=== PATIENT | male | born 1950 | race Caucasian/White ===

== ENCOUNTER 2023-03-16 12:50 | Outpatient (OUT) | payer MEDICARE, OTHER, SELFPAY ==
--- NOTE | 2023-03-16 12:54 | XR_ITS ---
The [address] [address] Patient Name: DAPHNEY AKERS MRN: [id number] date: 1950 Sex: M Assigned Patient Location: [facility] Current Patient Location: [facility] Accession/Order Number: [id number] Exam Date: 03/16/2023 13:30 Report Date: 03/16/2023 15:02 At the request of: TAY ROBIN Procedure: XR chest 2V EXAMINATION: XR chest 2V HISTORY: Preop exam COMPARISON: No relevant comparison available. TECHNIQUE: PA and lateral FINDINGS: LUNGS: Focal 3.1 cm density identified projected over the mid thoracic vertebral bodies, this could be degenerative change however is indeterminate. The lungs are otherwise clear VASCULATURE: No increased pulmonary vasculature. PLEURA: No pneumothorax, effusion, or pleural thickening. CARDIAC: No cardiomegaly or cardiac silhouette abnormality. MEDIASTINUM: No visible mass or adenopathy. BONES: No fracture or visible bone lesion. OTHER: Negative. XR/XR chest 2V IMPRESSION: Focal density seen on the lateral projection. CT scan of chest with contrast is recommended Electronically authenticated by: GARRY CHERY Date: 03/16/2023 15:02
--- NOTE | 2023-03-16 12:54 | ECG_ITS ---
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
--- NOTE | 2023-03-16 13:43 | P.GSHP_ITS ---
History of Present Illness History of Present Illness Chief complaint: right carpal tunnel syndrome Narrative: Patient presents for preadmission testing accompanied by his . The patient reports a history of bilateral carpal tunnel syndrome, he had the left repaired many years ago and is doing well, however he continues to have trouble with his right wrist and hand including numbness, tingling, and pain. Review of Systems ROS Narrative REVIEW OF SYSTEMS: Constitutional: No fever , chills, weakness ENT: No sore throat or epistaxis Cardiovascular: Chronic dyspnea on exertion, no chest pain Respiratory: No cough or wheezing Gastrointestinal: No abdominal pain, constipation, diarrhea, or vomiting Genitourinary: No dysuria or hematuria Neurological: No numbness, tingling, weakness, or headache Psychiatric: No mood changes PFSH PFS Medical History (Updated 03/16/23 @ 13:20 by Nancie Altamirano NP) Sciatica ?M54.30 - Sciatica, unspecified side (ICD-10) Back pain ?M54.9 - Dorsalgia, unspecified (ICD-10) Arthritis ?M19.90 - Unspecified osteoarthritis, unspecified site (ICD-10) Nasal congestion ?R09.81 - Nasal congestion (ICD-10) High cholesterol ?E78.00 - Pure hypercholesterolemia, unspecified (ICD-10) Dyspnea on exertion ?R06.09 - Other forms of dyspnea (ICD-10) Sleep apnea ?G47.30 - Sleep apnea, unspecified (ICD-10) Anxiety ?F41.9 - Anxiety disorder, unspecified (ICD-10) Depression ?F32.A - Depression, unspecified (ICD-10) Hypertension ?I10 - Essential (primary) hypertension (ICD-10) Diabetes ?E11.9 - Type 2 diabetes mellitus without complications (ICD-10) COPD (chronic obstructive pulmonary disease) ?J44.9 - Chronic obstructive pulmonary disease, unspecified (ICD-10) Carpal tunnel syndrome ?G56.00 - Carpal tunnel syndrome, unspecified upper limb (ICD-10) Surgical History (Updated 03/16/23 @ 13:18 by Nancie Altamirano NP) History of colonoscopy ?Z98.890 - Other specified postprocedural states (ICD-10) H/O removal of cyst ?Z98.890 - Other specified postprocedural states (ICD-10) History of appendectomy ?Z90.49 - Acquired absence of other specified parts of digestive tract (ICD- 10) History of total hip arthroplasty ?Z96.649 - Presence of unspecified artificial hip joint (ICD-10) History of carpal tunnel release ?Z98.890 - Other specified postprocedural states (ICD-10) Family History (Updated 03/16/23 @ 13:18 by Nancie Altamirano NP) Other Family history of diabetes mellitus Family history of heart disease Family history of hypertension Family history of prostate cancer Family history of stroke Social History (Updated 03/16/23 @ 13:14 by Nancie Altamirano NP) Within the past year, how often did you have a drink containing alcohol: monthly or less Smoking status: Former smoker Non-prescribed substance use: denies use Previous occupational history: Retired Highest level of school completed/degree received: high school graduate Meds Home Medications and Allergies Home Medications Medication Instructions Recorded Confirmed Type amlodipine 5 mg tablet 5 mg PO DAILY 03/16/23 03/16/23 History atorvastatin 20 mg tablet 20 mg PO DAILY 03/16/23 03/16/23 History dulaglutide 1.5 mg/0.5 mL 1.5 mg subcut QWEEK 03/16/23 03/16/23 History subcutaneous pen injector (Trulicity) gabapentin 600 mg tablet 600 mg PO Q8H 03/16/23 03/16/23 History glipizide 10 mg tablet, extended 10 mg PO DAILY 03/16/23 03/16/23 History release 24 hr insulin detemir U-100 100 unit/mL 70 unit subcut QPM 03/16/23 03/16/23 History (3 mL) subcutaneous pen (Levemir FlexPen) losartan 100 1 tab PO DAILY 03/16/23 03/16/23 History mg-hydrochlorothiazide 12.5 mg tablet meloxicam 7.5 mg tablet 7.5 mg PO DAILY 03/16/23 03/16/23 History metformin 1,000 mg tablet 1,000 mg PO BID 03/16/23 03/16/23 History mirtazapine 30 mg tablet 30 mg PO DAILY 03/16/23 03/16/23 History pioglitazone 15 mg tablet 15 mg PO DAILY 03/16/23 03/16/23 History spironolactone 25 mg tablet 25 mg PO DAILY 03/16/23 03/16/23 History venlafaxine 75 mg tablet 75 mg PO DAILY 03/16/23 03/16/23 History Allergies Allergy/AdvReac Type Severity Reaction Status Date / Time No Known Drug Allergies Allergy Verified 03/16/23 13:13 Exam Narrative Exam Narrative: Constitutional: Awake, alert, comfortable, well-appearing, nontoxic, interactive, vital signs as charted Head: Normocephalic, atraumatic Neck: Supple, normal appearance, normal range of motion, no meningeal signs, no lymphadenopathy Respiratory: No respiratory distress, breath sounds clear Cardiovascular: Regular rate and rhythm, strong and regular heart tones Skin: No rashes or induration, no lesions, only visible skin inspected Psychiatric: Oriented ?3, normal affect Assessment and Plan Assessment and Plan (1) Carpal tunnel syndrome: Plan Right endoscopic carpal tunnel release scheduled with Dr. Cox 03/28/2023.
[2023-03-16 14:02] LABS: Anion Gap 10.1; Calcium 9.2 mg/dL (8.5-10.1); Chloride 101 mmol/L (98-107); Estimated GFR (African America >60 (>=60); Estimated GFR (Non-African Ame >60 (>=60); Glucose 194 mg/dL (74-106); Potassium 4.1 mmol/L (3.5-5.1); Sodium 136 mmol/L (136-145)
== END 2023-03-16 12:51 | disposition home or self-care (01) ==
LOC: PST 12:50
PROVIDERS: Visit Provider Orthopaedic Surgery
DX: Z01.810 Encounter for preprocedural cardiovascular examination (principal); Z01.812 Encounter for preprocedural laboratory examination; Z01.818 Encounter for other preprocedural examination; G56.01 Carpal tunnel syndrome, right upper limb
CPT/HCPCS: 71046; 80048; 93005; G0463

== ENCOUNTER 2023-04-18 08:37 | Outpatient (OUT) | payer MEDICARE, OTHER, SELFPAY ==
--- OUTSIDE RECORDS SUMMARY | 2023-04-18 08:53 | XMS_ITS | CCD ---
Author Name Unknown Address [address] [place] [address] [facility] Care Team Providers Care Entry Level Marketing Assistant Name Role Phone ONEIL WILLIAMSON Unavailable Unavailable GETERRELLINGONEIL Unavailable Unavailable GETERRELLINGONEIL Unavailable Unavailable MOLINA, DIPAKKUMAR Unavailable Unavailable GETERRELLINGONEIL Unavailable Unavailable GETERRELLINGONEIL Unavailable Unavailable MOLINA, DIPAKKUMAR Unavailable Unavailable MOLINA, DIPAKKUMAR Unavailable Unavailable LA Unavailable Unavailable ONEIL WILLIAMSON Unavailable Unavailable GETERRELLINGONEIL Unavailable Unavailable GETERRELLINGONEIL Unavailable Unavailable MOLINA, DIPAKKUMAR Unavailable Unavailable MOLINA, DIPAKKUMAR Unavailable Unavailable GEONEIL HEWITT Unavailable Unavailable GETERRELLINGONEIL Unavailable Unavailable GEONEIL HEWITT Unavailable Unavailable MOLINA, DIPAKKUMAR Unavailable Unavailable ONEIL WILLIAMSON Unavailable Unavailable ONEIL WILLIAMSON Unavailable Unavailable MOLINA, DIPAKKUMAR Unavailable Unavailable MOLINA, DIPAKKUMAR Unavailable Unavailable MOLINA, DIPAKKUMAR P Unavailable Unavailable QUEEN, ANEESH MUMTAZ Unavailable Unavaila ble QUEEN, ANEESH MUMTAZ Unavailable Unavaila ble QUEEN, ANEESH MUMTAZ Unavailable Unavaila ble Molina, Dipakkumar P Primary Care Provider [phone] KUIVINEN JESSICA P Admitting Unavailable KUIVINEN JESSICA P Attending Unavailable MOLINA, DIPAKKUMAR P Primary Care Unavailable Molina, Dipakkumar P Primary Care Provider Phil Molina MD Primary Care Provider Phil Molina MD Primary Care Provider Marisol Carr MD Primary Care Provider MARISOL CARR Referring Unavailable IACOB, MARISOL Primary Care Unavailable TAY ROBIN Referring Unavailable IACOB, MARISOL Primary Care Unavailable IACOB, MARISOL Referring Unavailable IACOB, MARISOL Primary Care Unavailable IACOB, MARISOL Attending Unavailable IACOB, MARISOL Referring Unavailable IACOB, MARISOL Primary Care Unavailable IACOB, MARISOL Referring Unavailable IACOB, MARISOL Primary Care Unavailable IACOB, MARISOL Attending Unavailable IACOB, MARISOL Referring Unavailable IACOB, MARISOL Primary Care Unavailable MOLINA, DIPAKKUMAR P Referring Unavailable MOLINA, DIPAKKUMAR P Primary Care Unavailable IACOB, MARISOL Attending Unavailable IACOB, MARISOL Referring Unavailable IACOB, MARISOL Primary Care Unavailable IACOB, MARISOL Attending Unavailable IACOB, MARISOL Referring Unavailable IACOB, MARISOL Primary Care Unavailable IACOB, MARISOL Attending Unavailable IACOB, MARISOL Referring Unavailable IACOB, MARISOL Primary Care Unavailable IACOB, MARISOL Attending Unavailable IACOB, MARISOL Referring Unavailable IACOB, MARISOL Primary Care Unavailable IACOB, MARISOL Attending Unavailable IACOB, MARISOL Referring Unavailable IACOB, MARISOL Primary Care Unavailable IACOB, MARISOL Attending Unavailable IACOB, MARISOL Referring Unavailable IACOB, MARISOL Primary Care Unavailable IACOB, MARISOL Attending Unavailable IACOB, MARISOL Referring Unavailable IACOB, MARISOL Primary Care Unavailable IACOB, MARISOL Referring Unavailable IACOB, MARISOL Primary Care Unavailable Medications Current Medications Medication Drug Class(es) Dates Sig (Normalized) Sig (Original) [id number] 200 actuat albuterol 0.09 mg/actuat metered dose inhaler (3 sources) beta2-Adrenergic Agonist Start: 08-28-2021 take 2 puff(s) by inhalation four times daily as needed for wheezing albuterol sulfate HFA (VENTOLIN HFA) 108 (90 Base) MCG/ACT inhaler Inhale 2 puffs into the lungs 4 times daily as needed for Wheezing 54 g 1 08/28/2021 Active amLODIPine 5 mg oral tablet (4 sources) Dihydropyridine Calcium Channel Yariel Start: 03-28-2023 take 1 tablet by mouth once daily amLODIPine (NORVASC) 5 MG tablet TAKE 1 TABLET BY MOUTH DAILY 90 tablet 0 03/28/2023 Active Start: 03-25-2022 take 1 tablet by glalo th once daily amLODIPine (NORVASC) 5 MG tablet Take 1 tablet by mouth daily 90 tablet 0 03/25/2022 Active Start: 05-25-2021 take 1 tablet by gallo th once daily amLODIPine (NORVASC) 5 MG tablet Take 1 tablet by mouth daily 90 tablet 0 05/25/2021 Active aspirin 81 mg delayed release oral tablet (9 sources) Platelet Aggregation Inhibitor, Nonsteroidal Anti-inflammatory Drug take 1 tablet by mouth once daily aspirin 81 MG EC tablet Take 81 mg by mouth daily 0 Active take 1 tablet by mouth once rg y aspirin 325 MG EC tablet Take 325 mg by mouth daily 0 Active atorvastatin 20 mg oral tablet (11 sources) HMG-CoA Reductase Inhibitor Start: 03-25-2022 take 1 tablet by mouth once daily atorvastatin (LIPITOR) 20 MG tablet TAKE ONE TABLET BY MOUTH DAILY 90 tablet 2 03/25/2022 Active Start: 06-17-2021 take 1 tablet by gallo th once daily atorvastatin (LIPITOR) 20 MG tablet TAKE ONE TABLET BY MOUTH DAILY 90 tablet 0 06/17/2021 Active Start: 03-17-2021 take 1 tablet by gallo th once daily atorvastatin (LIPITOR) 20 MG tablet TAKE ONE TABLET BY MOUTH DAILY 90 tablet 0 03/17/2021 Active Start: 11-19-2019 take 1 tablet by gallo th once daily atorvastatin (LIPITOR) 20 MG tablet Take 1 tablet by mouth daily 90 tablet 0 11/19/2019 Active Start: 01-12-2019 take 1 tablet by gallo th once daily atorvastatin (LIPITOR) 20 MG tablet Take 1 tablet by mouth daily 90 tablet 0 01/12/2019 Active betamethasone 0.5 mg/ml / clotrimazole 10 mg/ml topical cream (6 sources) Azole Antifungal, Corticosteroid Start: 11-08-2014 clotrimazole-betamethasone (LOTRISONE) 1-0.05 % cream Apply topically 3 times daily. 1 Tube 1 11/08/2014 Active Blood Glucose Monitoring Suppl w/Device KIT (11 sources) Start: 08-26-2022 [address] Gl[address] Monitoring [address] w/Device KIT Indications: Diabetes mellitus due to underlying condition with hyperglycemia, without long-term current use of insulin ([facility]) 1 Units by Does not apply route 2 times daily 1 kit 0 08/26/2022 Active Start: 03-31-2018 Blood Glucose Monitoring Suppl w/Device KIT Indications: Diabetes mellitus due to underlying condition with hyperglycemia, without long-term current use of insulin ([facility]) 1 Units by Does not apply route 2 times daily 1 kit 0 03/31/2018 Active calcium chloride 0.0014 meq/ml / potassium chloride 0.004 meq/ml / sodium chloride 0.103 meq/ml / sodium lactate 0.028 meq/ml injectable solution (2 sources) Start: 01-12-2019 lactated ringe rs infusion 0.5 ml dulaglutide 3 mg/ml auto-injector (1 source) GLP-1 Receptor Agonist Start: 04-13-2019 inject 1.5 mg by subcutaneous injection every week Dulaglutide 1.5 MG/0.5ML SOPN INJECT 1.5 MG UNDER THE SKIN ONCE WEEKLY 2 pen 1 04/13/2019 Active Dulaglutide (TRULICITY) 3 MG/0.5ML SOPN (5 sources) Start: 03-03-2021 Dulaglutide (TRULICITY) 3 MG/0.5ML SOPN Indications: Type 2 diabetes mellitus without complication, without long-term current use of insulin (HCC) Inject 3 mg into the skin once a week 16 pen 3 03/03/2021 Active Dulaglutide (PORFIRIO LICITY) 3 MG/0.5ML SOPN Inject 3 mg into the skin once a week 0 Active fluticasone propionate 0.05 mg/actuat metered dose nasal spray (3 sources) Corticosteroid Start: 04-16-2021 take 2 spray(s) nasal route once daily fluticasone (FLONASE) 50 MCG/ACT nasal spray Indications: Nasal congestion , Nasal turbinate hypertrophy 2 sprays by Each Nostril route daily 1 each 2 04/16/2021 Active gabapentin 400 mg oral capsule (3 sources) Anti-epileptic Agent Start: 11-12-2020 take 1 capsule by mouth at bedtime gabapentin (NEURONTIN) 400 MG capsule Take 400 mg by mouth in the morning and at bedtime. 0 11/12/2020 Active glipiZIDE er 10 mg 24 hr extended release oral tablet (6 sources) Sulfonylurea Start: 03-25-2022 take 1 tablet by mouth twice daily glipiZIDE (GLUCOTROL XL) 10 MG extended release tablet Take 1 tablet by mouth 2 times daily 180 tablet 2 03/25/2022 Active Start: 06-17-2021 take 1 tablet by gallo twice daily glipiZIDE (GLUCOTROL XL) 10 MG extended release tablet Take 1 tablet by mouth 2 times daily 180 tablet 0 06/17/2021 Active Start: 03-17-2021 take 1 tablet by gallo th twice daily glipiZIDE (GLUCOTROL XL) 10 MG extended release tablet Take 1 tablet by mouth 2 times daily 180 tablet 0 03/17/2021 Active Start: 01-08-2020 take 1 tablet by gallo th twice daily glipiZIDE (GLUCOTROL XL) 10 MG extended release tablet Take 1 tablet by mouth 2 times daily 180 tablet 0 01/08/2020 Active hydroCHLOROthiazide 12.5 mg / lisinopril 20 mg oral tablet (6 sources) Thiazide Diuretic, Angiotensin Converting Enzyme Inhibitor Start: 01-08-2020 take 1 tablet by mouth once daily lisinopril-hydroCHLOROthiazide (PRINZIDE;ZESTORETIC) 20-12.5 MG per tablet Indications: Essential hypertension Take 1 tablet by mouth daily 90 tablet 0 01/08/2020 Active Start: 11-30-2018 take 1 tablet by gallo th once daily lisinopril-hydrochlorothiazide (PRINZIDE;ZESTORETIC) 20-12.5 MG per tablet Indications: Essential hypertension Take 1 tablet by mouth daily 90 tablet 0 11/30/2018 Active hydroCHLOROthiazide 12.5 mg / losartan potassium 100 mg oral tablet (5 sources) Thiazide Diuretic, Angiotensin 2 Receptor Yariel Start: 03-24-2023 take 1 tablet by mouth once daily losartan-hydroCHLOROthiazide (HYZAAR) 100-12.5 MG per tablet TAKE 1 TABLET BY MOUTH DAILY 90 tablet 0 03/24/2023 Active Start: 03-25-2022 take 1 tablet by gallo th once daily losartan-hydroCHLOROthiazide (HYZAAR) 100-12.5 MG per tablet Take 1 tablet by mouth daily 90 tablet 0 03/25/2022 Active Start: 05-25-2021 take 1 tablet by gallo th once daily losartan-hydroCHLOROthiazide (HYZAAR) 100-12.5 MG per tablet Take 1 tablet by mouth daily 90 tablet 0 05/25/2021 Active 3 ml insulin detemir 100 unt/ml pen injector (4 sources) Insulin Analog Start: 08-28-2021 insulin detemi r (LEVEMIR FLEXTOUCH) 100 UNIT/ML injection pen Indications: Type 2 diabetes mellitus without complication, with long-term current use of insulin ([facility]) Inject 30 Units into the skin nightly 5 pen 3 08/28/2021 Active Start: 06-25-2021 insulin detemi r (LEVEMIR FLEXTOUCH) 100 UNIT/ML injection pen Indications: Type 2 diabetes mellitus without complication, without long-term current use of insulin ([facility]) Inject 20 Units into the skin nightly 5 pen 3 06/25/2021 Active insulin detemir (LEVEMIR) 100 UNIT/ML injection pen Inject 70 Units into the skin nightly 0 Active meloxicam 15 mg oral tablet (10 sources) Nonsteroidal Anti-inflammatory Drug Start: 03-28-2023 End: 06-26-2023 take 1 tablet by mouth once daily as needed for pain meloxicam (MOBIC) 15 MG tablet TAKE 1 TABLET BY MOUTH DAILY NEEDED FOR PAIN 90 tablet 0 03/28/2023 06/26/2023 Active Start: 04-27-2022 take 1 tablet by gallo th once daily meloxicam (MOBIC) 7.5 MG tablet TAKE ONE TABLET BY MOUTH DAILY 90 tablet 0 04/27/2022 Active Start: 07-02-2021 take 1 tablet by gallo th once daily meloxicam (MOBIC) 7.5 MG tablet TAKE ONE TABLET BY MOUTH DAILY 90 tablet 0 07/02/2021 Active Start: 03-17-2021 take 1 tablet by gallo th once daily meloxicam (MOBIC) 7.5 MG tablet TAKE ONE TABLET BY MOUTH DAILY 90 tablet 0 03/17/2021 Active Start: 12-13-2019 take 1 tablet by gallo th once daily meloxicam (MOBIC) 7.5 MG tablet Take 1 tablet by mouth daily 90 tablet 0 12/13/2019 Active Start: 11-30-2018 take 1 tablet by gallo th once daily meloxicam (MOBIC) 7.5 MG tablet Take 1 tablet by mouth daily 90 tablet 0 11/30/2018 Active metFORMIN hydrochloride 1000 mg oral tablet (11 sources) Biguanide Start: 03-07-2023 take 1 tablet by mouth twice daily at mealtime metFORMIN (GLUCOPHAGE) 1000 MG tablet TAKE 1 TABLET BY MOUTH TWICE A DAY WITH A MEAL 180 tablet 0 03/07/2023 Active Start: 01-21-2022 take 1 tablet by gallo th twice daily at mealtime metFORMIN (GLUCOPHAGE) 1000 MG tablet Take 1 tablet by mouth 2 times daily (with meals) 180 tablet 0 01/21/2022 Active Start: 04-10-2021 take 1 tablet by gallo th twice daily at mealtime metFORMIN (GLUCOPHAGE) 1000 MG tablet Take 1 tablet by mouth 2 times daily (with meals) 180 tablet 0 04/10/2021 Active Start: 11-19-2019 take 1 tablet by gallo th twice daily at mealtime metFORMIN (GLUCOPHAGE) 1000 MG tablet Indications: Diabetes mellitus due to underlying condition with hyperglycemia, without long-term current use of insulin (HCC) Take 1 tablet by mouth 2 times daily (with meals) 180 tablet 0 11/19/2019 Active Start: 11-30-2018 take 1 tablet by gallo th twice daily at mealtime metFORMIN (GLUCOPHAGE) 1000 MG tablet Indications: Diabetes mellitus due to underlying condition with hyperglycemia, without long-term current use of insulin (HCC) Take 1 tablet by mouth 2 times daily (with meals) 180 tablet 0 11/30/2018 Active metroNIDAZOLE 500 mg oral tablet (6 sources) Nitroimidazole Antimicrobial Start: 07-21-2021 End: 07-31-2021 take 1 tablet by mouth three times daily metroNIDAZOLE (FLAGYL) 500 MG tablet Take 1 tablet by mouth 3 times daily for 10 days 30 tablet 0 07/21/2021 07/31/2021 Active Start: 01-12-2019 End: 01-19-2019 take 1 tablet by mouth three times daily metroNIDAZOLE (FLAGYL) 500 MG tablet Take 1 tablet by mouth 3 times daily for 7 days 21 tablet 0 01/12/2019 01/19/2019 Active mirtazapine 30 mg oral tablet (11 sources) Start: 03-25-2022 take 1 tablet by mouth once daily mirtazapine (REMERON) 30 MG tablet Take 1 tablet by mouth nightly 90 tablet 2 03/25/2022 Active Start: 06-17-2021 take 1 tablet by gallo th once daily mirtazapine (REMERON) 30 MG tablet Take 1 tablet by mouth nightly 90 tablet 0 06/17/2021 Active Start: 03-17-2021 take 1 tablet by gallo th once daily mirtazapine (REMERON) 30 MG tablet Take 1 tablet by mouth nightly 90 tablet 0 03/17/2021 Active Start: 10-01-2019 take 1 tablet by gallo th once daily mirtazapine (REMERON) 30 MG tablet Take 1 tablet by mouth nightly 90 tablet 0 10/01/2019 Active Start: 01-12-2019 take 1 tablet by gallo th once daily mirtazapine (REMERON) 30 MG tablet Take 1 tablet by mouth nightly 90 tablet 0 01/12/2019 Active 1 ml morphine sulfate 2 mg/ml cartridge (1 source) Opioid Agonist Start: 01-12-2019 morphine (PF) injection 1 mg nystatin [id number] unt/ml / triamcinolone acetonide 1 mg/ml topical cream (6 sources) Polyene Antifungal, Corticosteroid Start: 11-17-2016 nystatin-triamcin olone (MYCOLOG II) 325200-6.1 UNIT/GM-% cream Apply topically 2 times daily 30 g 2 11/17/2016 Active 2 ml ondansetron 2 mg/ml injection (1 source) Serotonin-3 Receptor Antagonist Start: 01-12-2019 ondansetron (ZOFRAN) injection 4 mg pioglitazone 15 mg oral tablet (11 sources) Peroxisome Proliferator Receptor alpha Agonist, Peroxisome Proliferator Receptor gamma Agonist, Thiazolidinedione Start: 03-25-2022 take 1 tablet by mouth once daily pioglitazone (ACTOS) 15 MG tablet Take 1 tablet by mouth daily 90 tablet 2 03/25/2022 Active Start: 06-17-2021 take 1 tablet by gallo th once daily pioglitazone (ACTOS) 15 MG tablet Take 1 tablet by mouth daily 90 tablet 0 06/17/2021 Active Start: 03-17-2021 take 1 tablet by gallo th once daily pioglitazone (ACTOS) 15 MG tablet Take 1 tablet by mouth daily 90 tablet 0 03/17/2021 Active Start: 12-13-2019 take 1 tablet by gallo th once daily pioglitazone (ACTOS) 15 MG tablet Take 1 tablet by mouth daily 90 tablet 0 12/13/2019 Active Start: 11-30-2018 take 1 tablet by gallo th once daily pioglitazone (ACTOS) 15 MG tablet Take 1 tablet by mouth daily 90 tablet 0 11/30/2018 Active pregabalin 75 mg oral capsule (2 sources) Start: 10-13-2022 take 1 capsule by mouth twice daily pregabalin (LYRICA) 75 MG capsule Take 1 capsule by mouth 2 times daily. 0 10/13/2022 Active repaglinide 2 mg oral tablet (10 sources) Glinide Start: 12-19-2018 take 1 tablet by mouth three times daily before mealtime repaglinide (PRANDIN) 2 MG tablet TAKE 1 TABLET BY MOUTH 3 TIMES DAILY (BEFORE MEALS) 90 tablet 3 12/19/2018 Active Start: 10-13-2018 take 1.5 tablets by mouth three times daily before mealtime repaglinide (PRANDIN) 2 MG tablet Take 1.5 tablets by mouth 3 times daily (before meals) 90 tablet 3 10/13/2018 Active Sennosides-Docusate Sodium (SENOKOT S PO) (6 sources) take 2 tablets by mouth twice daily as needed Sennosides-Docusate Sodium (SENOKOT S PO) Take 2 tablets by mouth 2 times daily as needed 0 Active 3 ml sodium chloride 9 mg/ml injection (4 sources) Start: 01-12-2019 sodium chloride flush 0.9 % injection 10 mL Start: 01-12-2019 sodium chlorid e flush 0.9 % injection 10 mL Start: 01-12-2019 sodium chlorid e flush 0.9 % injection 10 mL spironolactone 25 mg oral tablet (2 sources) Aldosterone Antagonist Start: 03-28-2023 take 1 tablet by mouth once daily spironolactone (ALDACTONE) 25 MG tablet TAKE 1 TABLET BY MOUTH DAILY 90 tablet 0 03/28/2023 Active Start: 03-25-2022 take 1 tablet by gallo th once daily spironolactone (ALDACTONE) 25 MG tablet Take 1 tablet by mouth daily 90 tablet 0 03/25/2022 Active venlafaxine 75 mg oral tablet (11 sources) Serotonin and Norepinephrine Reuptake Inhibitor Start: 01-07-2023 take 1 tablet by mouth twice daily venlafaxine (EFFEXOR) 75 MG tablet Indications: Depression, major, in remission (HCC) TAKE 1 TABLET BY MOUTH TWICE A DAY 180 tablet 0 01/07/2023 Active Start: 04-27-2022 take 1 tablet by gallo th twice daily venlafaxine (EFFEXOR) 75 MG tablet Take 1 tablet by mouth 2 times daily 180 tablet 0 04/27/2022 Active Start: 07-02-2021 take 1 tablet by gallo th twice daily venlafaxine (EFFEXOR) 75 MG tablet Take 1 tablet by mouth 2 times daily 180 tablet 0 07/02/2021 Active Start: 04-10-2021 take 1 tablet by gallo th twice daily venlafaxine (EFFEXOR) 75 MG tablet Take 1 tablet by mouth 2 times daily 180 tablet 0 04/10/2021 Active Start: 11-19-2019 take 1 tablet by gallo th twice daily venlafaxine (EFFEXOR) 75 MG tablet Take 1 tablet by mouth 2 times daily 180 tablet 0 11/19/2019 Active Start: 11-30-2018 take 1 tablet by gallo th twice daily venlafaxine (EFFEXOR) 75 MG tablet Take 1 tablet by mouth 2 times daily 180 tablet 0 11/30/2018 Active Completed/Discontinued Medications Medication Drug Class(es) Dates Sig (Normalized) Sig (Original) acetaminophen 325 mg / HYDROcodone bitartrate 5 mg oral tablet (5 sources) Opioid Agonist Start: 01-12-2019 End: 01-17-2019 take 1 tablet by mouth every six hours as needed for pain and pain, then take 2 tablets by mouth every six hours as needed for pain and pain HYDROcodone-aceta minophen (NORCO) 5-325 MG per tablet Indications: Gluteal abscess Take 1 tablet by mouth every 6 hours as needed for Pain for up to 5 days. May take up to 2 tablets po every 6 hours as needed for pain. 20 tablet 0 01/12/2019 01/17/2019 iopamidol (ISOVUE-370) 76 % injection 75 mL (1 source) Start: 03-31-2023 End: 03-31-2023 iopamidol (ISOVUE-370) 76 % injection 75 mL Problems Active Problems Problem Classification Problem Date Documented Date Episodic/Chronic Abdominal pain (1 source) Left lower quadrant pain; Translations: [Left lower quadrant pain] Episodic Diabetes mellitus with complications (6 sources) Type 2 diabetes mellitus; Translations: [Type 2 diabetes mellitus with hyperglycemia] Onset: 07-15-2022 03-31-2023 Chronic Diabetes mellitus without complication (20 sources) Type 2 diabetes mellitus without complications; Translations: [Type 2 diabetes mellitus without complication] Onset: 12-09-2014 09-23-2017 Chronic Disorders of lipid metabolism (13 sources) Hyperlipidemia; Translations: [Hyperlipidemia, unspecified] Onset: 03-09-2016 09-22-2017 Chronic Esophageal disorders (1 source) Gastro-esophageal reflux disease without esophagitis; Translations: [GASTRO-ESOPHAGEAL REFLUX DISEASE WITHOUT ESOPHAGITIS] Onset: 12-16-2016 Chronic Essential hypertension (15 sources) Essential (primary) hypertension; Translations: [Essential hypertension] Onset: 03-31-2014 09-22-2017 Chronic Mood disorders (20 sources) Major depression in remission; Translations: [Depressive disorder] Onset: 12-09-2014 Resolved: 12-31-2016 09-22-2017 Chronic Osteoarthritis (20 sources) Unilateral primary osteoarthritis, right hip; Translations: [Osteoarthritis of hip] Onset: 08-30-2016 10-29-2016 Chronic Osteoarthritis (6 sources) Osteoarthritis of right hip joint; Translations: [Primary osteoarthritis of right hip] Onset: 10-29-2016 10-29-2016 Other aftercare (4 sources) Aftercare following joint replacement surgery; Translations: [AFTERCARE FOLLOWING JOINT REPLACEMENT SURGERY] Onset: 12-28-2016 Chronic Other connective tissue disease (2 sources) Presence of artificial hip joint, bilateral; Translations: [Presence of left artificial hip joint] Onset: 12-16-2016 Chronic Other lower respiratory disease (3 sources) Radiologic increased density of lung; Translations: [Other disorders of lung] Onset: 03-18-2023 03-18-2023 Episodic Other lower respiratory disease (1 source) Other disorders of lung; Translations: [Other disorders of lung] Onset: 03-18-2023 Episodic Other nervous system disorders (2 sources) Carpal tunnel syndrome; Translations: [Carpal tunnel syndrome, unspecified upper limb] Onset: 03-18-2023 03-18-2023 Chronic Other nutritional; endocrine; and metabolic disorders (11 sources) Body mass index 40+ - severely obese; Translations: [Morbid (severe) obesity due to excess calories] Onset: 03-31-2018 03-31-2018 Chronic Other screening for suspected conditions (not mental disorders or infectious disease) (4 sources) Plain X-ray result abnormal; Translations: [Abnormal findings on diagnostic imaging of other specified body structures] Onset: 03-18-2023 03-18-2023 Chronic Other upper respiratory disease (2 sources) Bleeding from nose; Translations: [Epistaxis] Onset: 03-18-2023 03-18-2023 Episodic Unclassified (2 sources) Unknown / UNK(Unknown) Onset: 10-12-2016 Unclassified (1 source) assisted (current) use of oral hypoglycemic drugs; Translations: [CONTROL CLERK HEAD (CURRENT) USE OF ORAL HYPOGLYCEMIC DRUGS] Onset: 12-16-2016 Unclassified (8 sources) Patient encounter status; Translations: [Colon cancer screening] Onset: 08-05-2014 Resolved: 12-19-2017 12-19-2017 Past or Other Problems Problem Classification Problem Date Documented Date Episodic/Chronic Medical examination/evaluatio n (4 sources) Encounter for preprocedural laboratory examination; Translations: [ENCOUNTER FOR PREPROCEDURAL LABORATORY EXAMINATION] Onset: 10-12-2016 Episodic Neoplasms of unspecified nature or uncertain behavior (3 sources) Skin lesion; Translations: [Neoplasm of unspecified behavior of bone, soft tissue, and skin] Onset: 09-16-2022 09-16-2022 Episodic Other aftercare (3 sources) assisted (current) use of aspirin; Translations: [Other mcc (current) drug therapy] Onset: 10-12-2016 Episodic Other aftercare (1 source) assisted (current) use of insulin; Translations: [assisted (current) use of insulin] Onset: 10-20-2022 Episodic Other and unspecified benign neoplasm (3 sources) Polyp of colon; Translations: [Polyp of colon] Onset: 11-25-2021 11-25-2021 Episodic Other connective tissue disease (11 sources) Weakness of face muscles; Translations: [Facial weakness] Resolved: 08-15-2020 09-22-2017 Episodic Other nervous system disorders (2 sources) Anesthesia of skin; Translations: [Anesthesia of skin] Onset: 09-22-2017 Episodic Other nervous system disorders (11 sources) Numbness; Translations: [Anesthesia of skin] Onset: 09-22-2017 Resolved: 08-15-2020 09-22-2017 Episodic Other nervous system disorders (11 sources) Roger's palsy; 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] Onset: 09-22-2017 Resolved: 08-15-2020 09-22-2017 Episodic Other nervous system disorders (2 sources) Paresthesia of hand ; Translations: [Anesthesia of skin] Onset: 12-21-2022 12-21-2022 Episodic Other nervous system disorders (1 source) Paresthesia of skin; Translations: [Paresthesia of skin] Onset: 12-21-2022 Episodic Other non-traumatic joint disorders (11 sources) Hip pain; Translations: [Pain in right hip] Onset: 09-12-2016 Resolved: 08-15-2020 09-13-2016 Episodic Other nutritional; endocrine; and metabolic disorders (11 sources) Obesity; Translations: [Obesity, unspecified] Onset: 03-31-2014 Resolved: 03-31-2018 03-31-2018 Chronic Other screening for suspected conditions (not mental disorders or infectious disease) (6 sources) Patient encounter status; Translations: [Encounter for screening for malignant neoplasm of prostate] Onset: 08-05-2014 Resolved: 12-19-2017 Episodic Other skin disorders (2 sources) Skin tag; Translations: [Other hypertrophic disorders of the skin] Onset: 09-16-2022 09-16-2022 Episodic Other skin disorders (1 source) Other hypertrophic disorders of the skin; Translations: [Other hypertrophic disorders of the skin] Onset: 09-16-2022 Episodic Screening or history of mental health and substance abuse (1 source) Personal history of nicotine dependence; Translations: [PERSONAL HISTORY OF NICOTINE DEPENDENCE] Onset: 12-16-2016 Episodic Skin and subcutaneous tissue infections (12 sources) Abscess of buttock; Translations: [Cutaneous abscess of buttock] Onset: 01-12-2019 Resolved: 08-15-2020 01-12-2019 Episodic Results Test Name Value Interpretation Reference Range Facility CT CHEST W CONTRASTon 2023 CT CHEST W CONTRAST EXAMINATION: CT OF THE CHEST WITH CONTRAST 03/31/2023 8:55 am TECHNIQUE: CT of the chest was performed with the administration of intravenous contrast. Multiplanar reformatted images are provided for review. Automated exposure control, iterative reconstruction, and/or weight based adjustment of the mA/kV was utilized to reduce the radiation dose to as low as reasonably achievable. COMPARISON: None. HISTORY: ORDERING SYSTEM PROVIDED HISTORY: Abnormal x-ray TECHNOLOGIST PROVIDED HISTORY: STAT Creatinine as needed:->Yes Abnormal CXR, with focal 3.1cm density FINDINGS: Mediastinum: There are a few less than 1 cm mediastinal lymph nodes but no lymphadenopathy. The thoracic aorta is not aneurysmal. No dissection is seen. There are no defects involving the major pulmonary arteries. Lungs/pleura: The lung parenchyma demonstrates scattered calcified granulomas. No other nodules are seen. No airspace consolidations are seen. No pleural effusions or pneumothoraces are seen. Upper Abdomen: The visualized portion of the upper abdomen appear unremarkable. Soft Tissues/Bones: No acute bony abnormalities are noted. IMPRESSION: No acute cardiopulmonary process. Interpreted by: Sukhwinder Man MD Signed by: Sukhwinder Man MD 04/02/23 Final result Normal [facility] CT Chest W contrast Eboni No acute cardiopulmo nary process. [facility] EXAMINATION: CT OF THE CHEST WITH CONTRAST 03/31/2023 8:55 am TECHNIQUE: CT of the chest was performed with the administration of intravenous contrast. Multiplanar reformatted images are provided for review. Automated exposure control, iterative reconstruction, and/or weight based adjustment of the mA/kV was utilized to reduce the radiation dose to as low as reasonably achievable. COMPARISON: None. HISTORY: ORDERING SYSTEM PROVIDED HISTORY: Abnormal x-ray TECHNOLOGIST PROVIDED HISTORY: STAT Creatinine as needed:->Yes Abnormal CXR, with focal 3.1cm density FINDINGS: Mediastinum: There are a few less than 1 cm mediastinal lymph nodes but no lymphadenopathy. The thoracic aorta is not aneurysmal. No dissection is seen. There are no defects involving the major pulmonary arteries. Lungs/pleura: The lung parenchyma demonstrates scattered calcified granulomas. No other nodules are seen. No airspace consolidations are seen. No pleural effusions or pneumothoraces are seen. Upper Abdomen: The visualized portion of the upper abdomen appear unremarkable. Soft Tissues/Bones: No acute bony abnormalities are noted. [facility] Sukhwinder Man MD - 04/02/2023 EXAMINATION: CT OF THE CHEST WITH CONTRAST 03/31/2023 8:55 am TECHNIQUE: CT of the chest was performed with the administration of intravenous contrast. Multiplanar reformatted images are provided for review. Automated exposure control, iterative reconstruction, and/or weight based adjustment of the mA/kV was utilized to reduce the radiation dose to as low as reasonably achievable. COMPARISON: None. HISTORY: ORDERING SYSTEM PROVIDED HISTORY: Abnormal x-ray TECHNOLOGIST PROVIDED HISTORY: STAT Creatinine as needed:->Yes Abnormal CXR, with focal 3.1cm density FINDINGS: Mediastinum: There are a few less than 1 cm mediastinal lymph nodes but no lymphadenopathy. The thoracic aorta is not aneurysmal. No dissection is seen. There are no defects involving the major pulmonary arteries. Lungs/pleura: The lung parenchyma demonstrates scattered calcified granulomas. No other nodules are seen. No airspace consolidations are seen. No pleural effusions or pneumothoraces are seen. Upper Abdomen: The visualized portion of the upper abdomen appear unremarkable. Soft Tissues/Bones: No acute bony abnormalities are noted. IMPRESSION: No acute cardiopulmonary process. [facility] CT Chest W contrast IVOrdere d By: Sukhwinder Man on 04-02-2023 [facility] Work Phone: CBC with Auto Differentialon 03-31-2023 Basophils (Bld) [#/Vol] 0.14 10*3/uL [facility] Basophils/100 WBC (Bld) 1 % 0 - 2 % [facility] Eosinophils (Bld) [#/Vol] 0.65 10*3/uL High [facility] Eosinophils/100 WBC (Bld) 6 % High 1 - 4 % [facility] Erythrocyte distribution width (RBC) [Ratio] 13.2 % 11.8 - 14.4 % [facility] Hematocrit (Bld) [Volume fraction] 40.0 % Low 40.7 - 50.3 % [facility] Hemoglobin (Bld) [Mass/Vol] 12.9 g/dL Low 13.0 - 17.0 g/dL [facility] Immature granulocytes (Bld) [#/Vol] 0.08 10*3/uL [facility] Immature granulocytes/100 WBC (Bld) 1 % High 0 [facility] Interpretation and review of laboratory results Abnormal [facility] Lymphocytes/100 WBC (Bld) 23 % Low 24 - 43 % [facility] Lymphocytes/100 WBC (Bld) 2.37 % [facility] MCH (RBC) [Entitic mass] 28.9 pg 25.2 - 33.5 pg [facility] MCHC (RBC) [Mass/Vol] 32.3 g/dL 28.4 - 34.8 g/dL [facility] MCV (RBC) [Entitic vol] 89.7 fL 82.6 - 102.9 fL [facility] Monocytes/100 WBC (Bld) 8 % 3 - 12 % [facility] Monocytes/100 WBC (Bld) 0.81 % [facility] Neutrophils/100 WBC (Bld) 61 % 36 - 65 % [facility] Nucleated RBC/100 WBC (Bld) [Ratio] 0.0 % 0.0 per 100 WBC [facility] Platelet mean volume (Bld) [Entitic vol] 8.8 fL 8.1 - 13.5 fL [facility] Platelets (Bld) [#/Vol] 440 10*3/uL [facility] RBC (Bld) [#/Vol] 4.46 10*6/uL 4.21 - 5.7 7 m/uL [facility] Segmented neutrophils/100 WBC (Bld) 6.41 % [facility] WBC other (Bld) [#/Vol] 10.5 [facility] CBC with Diffon 03-31-2023 Abs. Basophil 0.14 k/uL Normal 0.00-0.20 [facility] Comment on above: Performed By: #### U RNMAB #### [facility] [employer] [address] [place] [address] Operations Specialists: Dexter Madera MD Abs.Imm.Granulocyt e 0.08 k/uL Normal 0.00-0.30 [facility] Comment on above: Performed By: #### U RNMAB #### [facility] [address] [place], [place] [phone] Operations Specialists: Dexter Madera MD Abs.Neutrophil (Seg) 6.41 k/uL Normal 1.50-8.10 [facility] Comment on above: Performed By: #### U RNMAB #### [facility] [employer] [address] [place], [place] [phone] Operations Specialists: Dexter Madera MD Basophils/100 WBC (Bld) 1 % Normal 0-2 [facility] Comment on above: Performed By: #### U RNMAB #### [address] [address] Operations Specialists: Dexter Madera MD Eosinophils (Bld) [#/Vol] 0.65 10*3/uL High 0.00-0.44 [facility] Comment on above: Performed By: #### U RNMAB #### [address] [address] Operations Specialists: Dexter Madera MD Eosinophils/100 WBC (Bld) 6 % High 1-4 [facility] Comment on above: Performed By: #### U RNMAB #### [address] [address] Operations Specialists: Dexter Madera MD Erythrocyte distribution width (RBC) [Ratio] 13.2 % Normal 11.8-14.4 [facility] Comment on above: Performed By: #### U RNMAB #### [address] [address] Operations Specialists: Dexter Madera MD Hematocrit (Bld) [Volume fraction] 40.0 % Low 40.7-50.3 [facility] Comment on above: Performed By: #### U RNMAB #### [address] [address] Operations Specialists: Dexter Madera MD Hemoglobin (Bld) [Mass/Vol] 12.9 g/dL Low 13.0-17.0 [facility] Comment on above: Performed By: #### U RNMAB #### [address] [address] Operations Specialists: Dexter Madera MD Immature granulocytes/100 WBC (Bld) 1 % High 0 [facility] Comment on above: Performed By: #### U RNMAB #### [address] [address] Operations Specialists: Dexter Madera MD Lymphocytes (Bld) [#/Vol] 2.37 10*3/uL Normal 1.10-3.70 [facility] Comment on above: Performed By: #### U RNMAB #### [address] [address] Operations Specialists: Dexter Madera MD Lymphocytes/100 WBC (Bld) 23 % Low 24-43 [facility] Comment on above: Performed By: #### U RNMAB #### [place] [address] Operations Specialists: Dexter Madera MD MCH (RBC) [Entitic mass] 28.9 pg Normal 25.2-33.5 [facility] Comment on above: Performed By: #### U RNMAB #### [place] [address] Operations Specialists: Dexter Madera MD MCHC (RBC) [Mass/Vol] 32.3 g/dL Normal 28.4-34.8 [facility] Comment on above: Performed By: #### U RNMAB #### [place] [address] Operations Specialists: Dexter Madera MD MCV (RBC) [Entitic vol] 89.7 fL Normal 82.6-102.9 [facility] Comment on above: Performed By: #### U RNMAB #### [place] [address] Operations Specialists: Dexter Madera MD Monocytes (Bld) [#/Vol] 0.81 10*3/uL Normal 0.10-1.20 [facility] Comment on above: Performed By: #### U RNMAB #### [address] [address] Operations Specialists: Dexter Madera MD Monocytes/100 WBC (Bld) 8 % Normal 3-12 [facility] Comment on above: Performed By: #### U RNMAB #### [id number] [place] [address] Operations Specialists: Dexter Madera MD Neutrophil (Seg) 61 % Normal 36-65 [facility] Comment on above: Performed By: #### U RNMAB #### [address] [address] Operations Specialists: Dexter Madera MD NRBC Automated 0.0 per 100 WBC Normal 0.0 [facility] Comment on above: Performed By: #### U RNMAB #### [address] [address] Operations Specialists: Dexter Madera MD Platelet mean volume (Bld) [Entitic vol] 8.8 fL Normal 8.1-13.5 [facility] Comment on above: Performed By: #### U RNMAB #### [address] [address] Operations Specialists: Dexter Madera MD Platelets (Bld) [#/Vol] 440 10*3/uL Normal 138-453 [facility] Comment on above: Performed By: #### U RNMAB #### [address] [address] Operations Specialists: Dexter Madera MD RBC (Bld) [#/Vol] 4.46 10*6/uL Normal 4.21-5.77 [facility] Comment on above: Performed By: #### U RNMAB #### [address] [address] Operations Specialists: Dexter Madera MD WBC (Bld) [#/Vol] 10.5 10*3/uL Normal 3.5-11.3 [facility] Comment on above: Performed By: #### U RNMAB #### [address] [address] Operations Specialists: Dexter Madera MD CT Chest W contrast [place]i Radiology Study observation (narrative) LYNN MANCIA [facility] Metabolic Profon 2023 Albumin [Mass/Vol] 4.2 g/dL Normal 3.5-5.2 [facility] Comment on above: Performed By: #### U RNMAB #### [address] [address] Operations Specialists: Dexter Madera MD Albumin/Glob Ratio 1.3 Normal 1.0-2.5 [facility] Comment on above: Performed By: #### U RNMAB #### [address] [address] Operations Specialists: Dexter Madera MD Alkaline Phos 71 U/L Normal 40-129 [facility] Comment on above: Performed By: #### U RNMAB #### [address] [address] Operations Specialists: Dexter Madera MD ALT [Catalytic activity/Vol] 27 U/L Normal 5-41 [facility] Comment on above: Performed By: #### U RNMAB #### [address] [address] Operations Specialists: Dexter Madera MD Anion gap [Moles/Vol] 7 mmol/L Low 9-17 [facility] Comment on above: Performed By: #### U RNMAB #### [address] [address] Operations Specialists: Dexter Madera MD AST [Catalytic activity/Vol] 21 U/L Normal <40 [facility] Comment on above: Performed By: #### U RNMAB #### [address] [address] Operations Specialists: Dexter Madera MD Bilirubin [Mass/Vol] 0.3 mg/dL Normal 0.3-1.2 [facility] Comment on above: Performed By: #### U RNMAB #### [facility] [address] [place] [address] Operations Specialists: Dexter Madera MD BUN/CRE Ratio 20 Normal 9-20 [facility] Comment on above: Performed By: #### U RNMAB #### [id number] [place] [address] Operations Specialists: Dexter Madera MD Calcium [Mass/Vol] 9.8 mg/dL Normal 8.6-10.4 [facility] Comment on above: Performed By: #### U RNMAB #### [address] [address] Operations Specialists: Dexter Madera MD Chloride [Moles/Vol] 102 mmol/L Normal 98-107 [facility] Comment on above: Performed By: #### U RNMAB #### [address] [address] Operations Specialists: Dexter Madera MD CO2 [Moles/Vol] 31 mmol/L Normal 20-31 [facility] Comment on above: Performed By: #### U RNMAB #### [address] [address] Operations Specialists: Dexter Madera MD Creatinine [Mass/Vol] 0.7 mg/dL Normal 0.7-1.2 [facility] Comment on above: Performed By: #### U RNMAB #### [address] [address] Operations Specialists: Dexter Madera MD GFR/1.73 sq M.predicted among non-blacks MDRD (S/P/Bld) [Vol rate/Area] mL/min/{1.73_m2} Normal >60 [facility] Comment on above: Result Comment: These results are not intended for use in patients <18 years of age. eGFR results are calculated without a race factor using the 2020 CKD-EPI equation. Careful clinical correlation is recommended, particularly when comparing to results calculated using previous equations. The CKD-EPI equation is less accurate in patients with extremes of muscle mass, extra-renal metabolism of creatine, excessive creatine ingestion, or following therapy that affects renal tubular secretion. Performed By: #### U RNMAB #### [facility] [address] [place] [address] Operations Specialists: Dexter Madera MD Glucose [Mass/Vol] 147 mg/dL High 70-99 [facility] Comment on above: Performed By: #### U RNMAB #### [facility] [address] [place] [address] Operations Specialists: Dexter Madera MD Potassium [Moles/Vol] 4.1 mmol/L Normal 3.7-5.3 [facility] Comment on above: Performed By: #### U RNMAB #### [facility] [address] [place] [address] Operations Specialists: Dexter Madera MD Protein [Mass/Vol] 7.5 g/dL Normal 6.4-8.3 [facility] Comment on above: Performed By: #### U RNMAB #### [facility] [address] [place] [address] Operations Specialists: Dexter Madera MD Sodium [Moles/Vol] 140 mmol/L Normal 135-144 [facility] Comment on above: Performed By: #### U RNMAB #### [employer] [address] [place] [address] Operations Specialists: Dexter Madera MD Urea nitrogen [Mass/Vol] 14 mg/dL Normal 8-23 [facility] Comment on above: Performed By: #### U RNMAB #### [email or web address] [address] [place] [address] Operations Specialists: Dexter Madera MD Comprehensive Metabolic Pane [facility] 03-31-2023 Albumin [Mass/Vol] 4.2 g/dL 3.5 - 5.2 g/dL [facility] Albumin/Globulin [Mass ratio] 1.3 {ratio} 1.0 - 2.5 [facility] ALP [Catalytic activity/Vol] 71 U/L 40 - 129 U/L [facility] ALT [Catalytic activity/Vol] 27 U/L 5 - 41 U/L [facility] Anion gap [Moles/Vol] 7 mmol/L Low 9 - 17 mmol/L [facility] AST [Catalytic activity/Vol] 21 U/L NINF - 40 U/L [facility] Bilirubin [Mass/Vol] 0.3 mg/dL 0.3 - 1.2 mg/dL [facility] Calcium [Mass/Vol] 9.8 mg/dL 8.6 - 10. 4 mg/dL [facility] Chloride [Moles/Vol] 102 mmol/L 98 - 107 mmol/L [facility] CO2 [Moles/Vol] 31 mmol/L 20 - 31 mmol/L [facility] Creatinine [Mass/Vol] 0.7 mg/dL 0.7 - 1.2 mg/dL [facility] GFR/1.73 sq M.predicted MDRD (S/P/Bld) [Vol rate/Area] - PINF [facility] Comment on above: These results are not intended for use in patients <18 years of age. eGFR results are calculated without a race factor using the 2020 CKD-EPI equation. Careful clinical correlation is recommended, particularly when comparing to results calculated using previous equations. The CKD-EPI equation is less accurate in patients with extremes of muscle mass, extra-renal metabolism of creatine, excessive creatine ingestion, or following therapy that affects renal tubular secretion. Glucose [Mass/Vol] 147 mg/dL High 70 - 99 mg/dL [facility] Interpretation and review of laboratory results Abnormal [facility] Potassium [Moles/Vol] 4.1 mmol/L 3.7 - 5.3 mmol/L [facility] Protein [Mass/Vol] 7.5 g/dL 6.4 - 8.3 g/dL [facility] Sodium [Moles/Vol] 140 mmol/L 135 - 144 mmol/L [facility] Urea nitrogen [Mass/Vol] 14 mg/dL 8 - 23 mg/dL [facility] Urea nitrogen/Creatinin e [Mass ratio] 20 mg/mg 9 - 20 [facility] Lipid Panelon 03-31-2023 Cholesterol [Mass/Vol] 141 mg/dL NINF - 200 mg/dL [facility] Comment on above: Cholesterol Guidelines: <200 Desirable 200-240 Borderline >240 Undesirable Cholesterol in HDL [Mass/Vol] 34 mg/dL Low 40 - PINF mg/dL [facility] Comment on above: HDL Guidelines: <40 Undesirable 40-59 Borderline >59 Desirable Cholesterol in LDL [Mass/Vol] 77 mg/dL 0 - 130 mg/dL [facility] Comment on above: LDL Guidelines: <100 Desirable 100-129 Near to/above Desirable 130-159 Borderline >159 Undesirable Direct (measured) LDL and calculated LDL are not interchangeable tests. Cholesterol.total/ Cholesterol in HDL [Mass ratio] 4.1 {ratio} NINF - 5 [facility] Interpretation and review of laboratory results Abnormal [facility] Triglyceride [Mass/Vol] 148 mg/dL NINF - 150 mg/dL [facility] Comment on above: Triglyceride Guidelines: <150 Desirable 150-199 Borderline 200-499 High >499 Very high Based on AHA Guidelines for fasting triglyceride, November 2011. [facility] Lipid Profileon 03-31-2023 Cholesterol [Mass/Vol] 141 mg/dL Normal <200 [facility] Comment on above: Result Comment: Cholesterol Guidelines: <200 Desirable 200-240 Borderline >240 Undesirable Performed By: #### L IPR #### [employer] [phone] Operations Specialists: Dexter Madera MD Cholesterol in HDL [Mass/Vol] 34 mg/dL Low >40 [facility] Comment on above: Result Comment: HDL Guidelines: <40 Undesirable 40-59 Borderline >59 Desirable Performed By: #### L IPR #### [employer] [address] [place], [place] [phone] Operations Specialists: Dexter Madera MD Cholesterol in LDL [Mass/Vol] 77 mg/dL Normal 0-130 [facility] Comment on above: Result Comment: LDL Guidelines: <100 Desirable 100-129 Near to/above Desirable 130-159 Borderline >159 Undesirable Direct (measured) LDL and calculated LDL are not interchangeable tests. Performed By: #### L IPR #### [address] [address] Operations Specialists: Dexter Madera MD Cholesterol.total/ Cholesterol in HDL [Mass ratio] 4.1 {ratio} Normal <5 [facility] Comment on above: Performed By: #### L IPR #### [address] [address] Operations Specialists: Dexter Madera MD Triglyceride [Mass/Vol] 148 mg/dL Normal <150 [facility] Comment on above: Result Comment: Triglyceride Guidelines: <150 Desirable 150-199 Borderline 200-499 High >499 Very high Based on AHA Guidelines for fasting triglyceride, November 2011. Performed By: #### L IPR #### [address] [address] Operations Specialists: Dexter Madera MD Hemoglobin A1Con 02-10-2023 Glucose [Mass/Vol] 186 mg/dL Normal [facility] Comment on above: Result Comment: The ADA and AACC recommend providing the estimated average glucose result to permit better patient understanding of their HBA1c result. Performed By: #### G LYHGB #### [address] [address] Operations Specialists: Dexter Madera MD HbA1c (Bld) [Mass fraction] 8.1 % High 4.0-6.0 [facility] Comment on above: Performed By: #### G LYHGB #### [address] [address] Operations Specialists: Dexter Madera MD XR HAND RIGHT (MIN 3 VIEWS)o n 12-23-2022 XR HAND RIGHT (MIN 3 VIEWS) EXAMINATION: THREE XRAY VIEWS OF THE RIGHT HAND 12/22/2022 11:07 am COMPARISON: None. HISTORY: ORDERING SYSTEM PROVIDED HISTORY: Numbness and tingling in right hand TECHNOLOGIST PROVIDED HISTORY: Right hand numbness/tingling FINDINGS: There is no evidence of acute fracture. There is normal alignment. No acute joint abnormality. No focal osseous lesion. No focal soft tissue abnormality. Degenerative changes seen in the interphalangeal joint of the thumb. Degenerative changes at the radiocarpal articulation. IMPRESSION: No acute osseous abnormality. Degenerative changes in the interphalangeal joint of the thumb and in the radiocarpal articulation Interpreted by: Dhaval Lopez MD Signed by: Dhaval Lopez MD 12/23/22 Final result Normal [facility] Hemoglobin A1Con 10-28-2022 Glucose [Mass/Vol] 217 mg/dL Normal [facility] Comment on above: Result Comment: The ADA and AACC recommend providing the estimated average glucose result to permit better patient understanding of their HBA1c result. Performed By: #### C P, CDP #### [facility] [address] [place] [address] [address] [place] [phone] Operations Specialists: Barak Garcia MD #### GLYHGB #### [place] [id number] Operations Specialists: Dexter Madera MD HbA1c (Bld) [Mass fraction] 9.2 % High 4.0-6.0 [facility] Comment on above: Performed By: #### C P, CDP #### [address] [place] [phone] Operations Specialists: Barak Garcia MD #### GLYHGB #### [place] [id number] Operations Specialists: Dexter Madera MD CBC with Diffon 10-27-2022 Abs. Basophil 0.12 k/uL Normal 0.00-0.20 [facility] Comment on above: Performed By: #### C P, CDP #### [facility] [address] [place] [address] [place] [address] Operations Specialists: Barak Garcia MD #### GLYHGB #### [address] [id number] Operations Specialists: Dxeter Madera MD Abs.Imm.Granulocyt e 0.03 k/uL Normal 0.00-0.30 [facility] Comment on above: Performed By: #### C P, CDP #### [address] [place] [phone] Operations Specialists: Barak Garcia MD #### GLYHGB #### [place] [address] Operations Specialists: Dexter Madera MD Abs.Neutrophil (Seg) 7.42 k/uL Normal 1.50-8.10 [facility] Comment on above: Performed By: #### C P, CDP #### [address] [place] [phone] ( Operations Specialists: Barak Garcia MD #### GLYHGB #### [place] [address] Operations Specialists: Dexter Madera MD Basophils/100 WBC (Bld) 1 % Normal 0-2 [facility] Comment on above: Performed By: #### C P, CDP #### [address] [place] [phone] Operations Specialists: Barak Garcia MD #### GLYHGB #### [place] [address] Operations Specialists: Dexter Madera MD Eosinophils (Bld) [#/Vol] 0.66 10*3/uL High 0.00-0.44 [facility] Comment on above: Performed By: #### C P, CDP #### [address] [place] [phone] Operations Specialists: Barak Garcia MD #### GLYHGB #### [address] [address] Operations Specialists: Dexter Madera MD Eosinophils/100 WBC (Bld) 6 % High 1-4 [facility] Comment on above: Performed By: #### C P, CDP #### [facility] [address] [place], [place] [phone] Operations Specialists: Barak Garcia MD #### GLYHGB #### [address] [phone] Operations Specialists: Dexter Madera MD Erythrocyte distribution width (RBC) [Ratio] 13.6 % Normal 11.8-14.4 [facility] Comment on above: Performed By: #### C P, CDP #### [facility] [address] [place] [phone] Operations Specialists: Barak Garcia MD #### GLYHGB #### [address] [phone] Operations Specialists: Dexter Madera MD Hematocrit (Bld) [Volume fraction] 40.6 % Low 40.7-50.3 [facility] Comment on above: Performed By: #### C P, CDP #### [facility] [address] [place], [place] [phone] Operations Specialists: Barak Garcia MD #### GLYHGB #### [address] [phone] Operations Specialists: Dexter Madera MD Hemoglobin (Bld) [Mass/Vol] 13.6 g/dL Normal 13.0-17.0 [facility] Comment on above: Performed By: #### C P, CDP #### [facility] [address] [place], [place] [phone] Operations Specialists: Barak Garcia MD #### GLYHGB #### [address] [phone] Operations Specialists: Dexter Madera MD Immature granulocytes/100 WBC (Bld) 0 % Normal 0 [facility] Comment on above: Performed By: #### C P, CDP #### [facility] [address] [place], [place] [phone] Operations Specialists: Barak Garcia MD #### GLYHGB #### [address] [phone] Operations Specialists: Dexter Madera MD Lymphocytes (Bld) [#/Vol] 2.09 10*3/uL Normal 1.10-3.70 [facility] Comment on above: Performed By: #### C P, CDP #### [facility] [address] [place], [place] [phone] Operations Specialists: Barak Garcia MD #### GLYHGB #### [address] [phone] Operations Specialists: Dexter Madera MD Lymphocytes/100 WBC (Bld) 19 % Low 24-43 [facility] Comment on above: Performed By: #### C P, CDP #### [facility] [address] [place], [place] [phone] Operations Specialists: Barak Garcia MD #### GLYHGB #### [place] [address] [place] [address] Operations Specialists: Dexter Madera MD MCH (RBC) [Entitic mass] 29.4 pg Normal 25.2-33.5 [facility] Comment on above: Performed By: #### C P, CDP #### [facility] [address] [place], [place] [phone] Operations Specialists: Barak Garcia MD #### GLYHGB #### [address] [address] Operations Specialists: Dexter Madera MD MCHC (RBC) [Mass/Vol] 33.5 g/dL Normal 28.4-34.8 [facility] Comment on above: Performed By: #### C P, CDP #### [facility] [address] [place], [place] [phone] Operations Specialists: Barak Garcia MD #### GLYHGB #### [address] [phone] Operations Specialists: Dexter Madera MD MCV (RBC) [Entitic vol] 87.9 fL Normal 82.6-102.9 [facility] Comment on above: Performed By: #### C P, CDP #### [facility] [address] [place] [address] Dr. [place], [place] [phone] Operations Specialists: Barak Garcia MD #### GLYHGB #### [address] [address] Operations Specialists: Dexter Madera MD Monocytes (Bld) [#/Vol] 0.86 10*3/uL Normal 0.10-1.20 [facility] Comment on above: Performed By: #### C P, CDP #### [address] [place], [place] [phone] Operations Specialists: Barak Garcia MD #### GLYHGB #### [address] [phone] Operations Specialists: Dexter Madear MD Monocytes/100 WBC (Bld) 8 % Normal 3-12 [facility] Comment on above: Performed By: #### C P, CDP #### [address] [place], [place] [phone] Operations Specialists: Barak Garcia MD #### GLYHGB #### [address] [address] Operations Specialists: Dexter Madera MD Neutrophil (Seg) 66 % High 36-65 [facility] Comment on above: Performed By: #### C P, CDP #### [facility] [address] [place] [address] Dr. [place] [phone] Operations Specialists: Barak Garcia MD #### GLYHGB #### [address] [phone] Operations Specialists: Detxer Madera MD NRBC Automated 0.0 per 100 WBC Normal 0.0 [facility] Comment on above: Performed By: #### C P, CDP #### [address] [place] [phone] Operations Specialists: Barak Garcia MD #### GLYHGB #### [place] [address] Operations Specialists: Dexter Madera MD Platelet mean volume (Bld) [Entitic vol] 9.4 fL Normal 8.1-13.5 [facility] Comment on above: Performed By: #### C P, CDP #### [address] [place] [phone] Operations Specialists: Barak Garcia MD #### GLYHGB #### [place] [address] Operations Specialists: Dexter Madera MD Platelets (Bld) [#/Vol] 389 10*3/uL Normal 138-453 [facility] Comment on above: Performed By: #### C P, CDP #### [address] [place] [phone] Operations Specialists: Barak Garcia MD #### GLYHGB #### [address] [phone] Operations Specialists: Dexter Madera MD RBC (Bld) [#/Vol] 4.62 10*6/uL Normal 4.21-5.77 [facility] Comment on above: Performed By: #### C P, CDP #### [address] [place] [phone] Operations Specialists: Barak Garcia MD #### GLYHGB #### [address] [place] [address] Operations Specialists: Dexter Madera MD WBC (Bld) [#/Vol] 11.2 10*3/uL Normal 3.5-11.3 [facility] Comment on above: Performed By: #### C P, CDP #### [facility] [address] [place] [address] [place], [place] [phone] Operations Specialists: Barak Garcia MD #### GLYHGB #### [address] [address] Operations Specialists: Dexter Madera MD Comp Metabolic Profon 2022 Albumin [Mass/Vol] 4.5 g/dL Normal 3.5-5.2 [facility] Comment on above: Performed By: #### C P, CDP #### [address] [place] [phone] Operations Specialists: Barak Garcia MD #### GLYHGB #### [address] [address] Operations Specialists: Dexter Madera MD Albumin/Glob Ratio 1.5 Normal 1.0-2.5 [facility] Comment on above: Performed By: #### C P, CDP #### [facility] [address] [place] [address] Dr. [place] [phone] Operations Specialists: Barak Garcia MD #### GLYHGB #### [address] [place] [address] Operations Specialists: Dexter Madera MD Alkaline Phos 71 U/L Normal 40-129 [facility] Comment on above: Performed By: #### C P, CDP #### [facility] [address] [place] [address] [place] [address] Operations Specialists: Barak Garcia MD #### GLYHGB #### [facility] [address] [place] [address] Operations Specialists: Dexter Madera MD ALT [Catalytic activity/Vol] 30 U/L Normal 5-41 [facility] Comment on above: Performed By: #### C P, CDP #### [facility] [address] [place], [place] [phone] Operations Specialists: Barak Garcia MD #### GLYHGB #### [facility] [address] [place] [address] Operations Specialists: Dexter Madera MD Anion gap [Moles/Vol] 12 mmol/L Normal 9-17 [facility] Comment on above: Performed By: #### C P, CDP #### [facility] [address] [place], [place] [phone] Operations Specialists: Barak Garcia MD #### GLYHGB #### [address] [address] Operations Specialists: Dexter Madera MD AST [Catalytic activity/Vol] 22 U/L Normal <40 [facility] Comment on above: Performed By: #### C P, CDP #### [facility] [address] [place], [place] [phone] Operations Specialists: Barak Garcia MD #### GLYHGB #### [facility] [address] [place] [address] Operations Specialists: Dexter Madera MD Bilirubin [Mass/Vol] 0.3 mg/dL Normal 0.3-1.2 [facility] Comment on above: Performed By: #### C P, CDP #### [facility] [address] [place], [place] [phone] Operations Specialists: Barak Garcia MD #### GLYHGB #### [address] [address] Operations Specialists: Dexter Madera MD BUN/CRE Ratio 23 High 9-20 [facility] Comment on above: Performed By: #### C P, CDP #### [facility] [address] [place], [place] [phone] Operations Specialists: Barak Garcia MD #### GLYHGB #### [address] [address] Operations Specialists: Dexter Madera MD Calcium [Mass/Vol] 9.9 mg/dL Normal 8.6-10.4 [facility] Comment on above: Performed By: #### C P, CDP #### [facility] [address] [place], [place] [phone] Operations Specialists: Barak Garcia MD #### GLYHGB #### [address] [address] Operations Specialists: Dexter Madera MD Chloride [Moles/Vol] 103 mmol/L Normal 98-107 [facility] Comment on above: Performed By: #### C P, CDP #### [facility] [address] [place] [address] Dr. [place], [place] [phone] Operations Specialists: Barak Garcia MD #### GLYHGB #### [address] [address] Operations Specialists: Dexter Madera MD CO2 [Moles/Vol] 26 mmol/L Normal 20-31 [facility] Comment on above: Performed By: #### C P, CDP #### [facility] [address] [place], [place] [phone] Operations Specialists: Barak Garcia MD #### GLYHGB #### [address] [address] Operations Specialists: Dexter Madera MD Creatinine [Mass/Vol] 0.8 mg/dL Normal 0.7-1.2 [facility] Comment on above: Performed By: #### C P, CDP #### [facility] [address] [place] [address] Operations Specialists: Barak Garcia MD #### GLYHGB #### [address] [phone] Operations Specialists: Dexter Madera MD GFR/1.73 sq M.predicted among non-blacks MDRD (S/P/Bld) [Vol rate/Area] mL/min/{1.73_m2} Normal >60 [facility] Comment on above: Result Comment: These results are not intended for use in patients <18 years of age. eGFR results are calculated without a race factor using the 2020 CKD-EPI equation. Careful clinical correlation is recommended, particularly when comparing to results calculated using previous equations. The CKD-EPI equation is less accurate in patients with extremes of muscle mass, extra-renal metabolism of creatine, excessive creatine ingestion, or following therapy that affects renal tubular secretion. Performed By: #### C P, CDP #### [address] [place], [place] [phone] Operations Specialists: Barak Garcia MD #### GLYHGB #### [address] [place], [place] [phone] Operations Specialists: Dexter Madera MD Glucose [Mass/Vol] 217 mg/dL High 70-99 [facility] Comment on above: Performed By: #### C P, CDP #### [facility] [address] [place], [place] [phone] Operations Specialists: Barak Garcia MD #### GLYHGB #### [address] [address] Operations Specialists: Dexter Madera MD Potassium [Moles/Vol] 4.2 mmol/L Normal 3.7-5.3 [facility] Comment on above: Performed By: #### C P, CDP #### [facility] [address] [place], [place] 6004983 Operations Specialists: Barak Garcia MD #### GLYHGB #### [address] [phone] Operations Specialists: Dexter Madera MD Protein [Mass/Vol] 7.5 g/dL Normal 6.4-8.3 [facility] Comment on above: Performed By: #### C P, CDP #### [facility] [address] [place], [place] [phone] Operations Specialists: Barak Garcia MD #### GLYHGB #### [facility] [employer] [address] [place] [address] [phone] Operations Specialists: Dexter Madera MD Sodium [Moles/Vol] 141 mmol/L Normal 135-144 [facility] Comment on above: Performed By: #### C P, CDP #### [facility] [address] [place] [address] [place], [place] [phone] Operations Specialists: Barak Garcia MD #### GLYHGB #### [address] [address] Operations Specialists: Dexter Madera MD Urea nitrogen [Mass/Vol] 18 mg/dL Normal 8-23 [facility] Comment on above: Performed By: #### C P, CDP #### [facility] [address] [place] [address] [place], [place] [phone] Operations Specialists: Barak Garcia MD #### GLYHGB #### [address] [address] Operations Specialists: Dexter Madera MD Lipid Profileon 10-27-2022 Cholesterol [Mass/Vol] 151 mg/dL Normal <200 [facility] Comment on above: Result Comment: Cholesterol Guidelines: <200 Desirable 200-240 Borderline >240 Undesirable Performed By: #### U RNMAB #### [employer] [facility] [place] [address] Operations Specialists: Dexter Madera MD Cholesterol in HDL [Mass/Vol] 35 mg/dL Low >40 [facility] Comment on above: Result Comment: HDL Guidelines: <40 Undesirable 40-59 Borderline >59 Desirable Performed By: #### U RNMAB #### [address] [address] Operations Specialists: Dexter Madera MD Cholesterol in LDL [Mass/Vol] 87 mg/dL Normal 0-130 [facility] Comment on above: Result Comment: LDL Guidelines: <100 Desirable 100-129 Near to/above Desirable 130-159 Borderline >159 Undesirable Direct (measured) LDL and calculated LDL are not interchangeable tests. Performed By: #### U RNMAB #### [facility] [employer] [address] [place] [address] Operations Specialists: Dexter Madera MD Cholesterol.total/ Cholesterol in HDL [Mass ratio] 4.3 {ratio} Normal <5 [facility] Comment on above: Performed By: #### U RNMAB #### [facility] [employer] [address] [place] [address] Operations Specialists: Dexter Madera MD Triglyceride [Mass/Vol] 143 mg/dL Normal <150 [facility] Comment on above: Result Comment: Triglyceride Guidelines: <150 Desirable 150-199 Borderline 200-499 High >499 Very high Based on AHA Guidelines for fasting triglyceride, November 2011. Performed By: #### U RNMAB #### [employer] [address] [place] [address] Operations Specialists: Dexter Madera MD Microalb.,[employer] 2022 Creatinine [Mass/Vol] 116.4 mg/dL Normal 39.0-259.0 [facility] Comment on above: Performed By: #### U RNMAB #### [employer] [address] [place] [address] Operations Specialists: Dexter Madera MD Microalb/Creat Ratio 60 mcg/mg creat High <17 [facility] Comment on above: Performed By: #### U RNMAB #### [facility] [employer] [facility] [place], [place] [phone] Operations Specialists: Dexter Madera MD Microalbumin conc. 70 mg/L High <21 [facility] Comment on above: Performed By: #### U RNMAB #### [facility] [employer] [address] [place] [address] [phone] Operations Specialists: Dexter Madera MD Surgical Pathologyon 023 Surgical Pathology (NOTE) Path Number: [id number] -- Diagnosis -- A. ABNORMAL SKIN GROWTH, RIGHT POSTERIOR LEG, EXCISION:-FIBROEPITHELIAL POLYP. Sharmaine Montejo Electronically Signed Out 09/21/2022 Clinical Information Pre-op Diagnosis: ABNORMAL SKIN GROWTH; SKIN TAGS Operative Findings: RT POSTERIOR LEG cd Source of Specimen A: ABNORMAL SKIN GROWTH - RIGHT POSTERIOR LEG Gross Description A. KWABENA DELPHINE, RT POSTERIOR THIGH Received in formalin is a 1.4 x 1.0 x 0.3 cm wrinkled brian papule. Inked and bisected 1cs. tm Microscopic Description Microscopic examination performed. Processing Lab: [address] [id number] Interpretation Performed at [address] [id number] SURGICAL PATHOLOGY CONSULTATION Patient Name: MARY AKERSMIKAEL aSnders Med Rec: [id number] [facility] ANATOMIC PATHOLOGY [address] [place] [phone] Normal [facility] Lipid Profileon 04-30-2022 Cholesterol [Mass/Vol] 167 mg/dL Normal <200 [facility] Comment on above: Result Comment: Cholesterol Guidelines: <200 Desirable 200-240 Borderline >240 Undesirable Performed By: #### U RNMAB #### [address] [phone] Operations Specialists: Dexter Madera MD Cholesterol in HDL [Mass/Vol] 39 mg/dL Low >40 [facility] Comment on above: Result Comment: HDL Guidelines: <40 Undesirable 40-59 Borderline >59 Desirable Performed By: #### U RNMAB #### [employer] [address] [place] [address] [phone] Operations Specialists: Dexter Madera MD Cholesterol in LDL [Mass/Vol] 97 mg/dL Normal 0-130 [facility] Comment on above: Result Comment: LDL Guidelines: <100 Desirable 100-129 Near to/above Desirable 130-159 Borderline >159 Undesirable Direct (measured) LDL and calculated LDL are not interchangeable tests. Performed By: #### U RNMAB #### [facility] [address] [place] [address] [phone] Operations Specialists: Dexter Madera MD Cholesterol.total/ Cholesterol in HDL [Mass ratio] 4.3 {ratio} Normal <5 [facility] Comment on above: Performed By: #### U RNMAB #### [employer] [address] [place] [address] [phone] Operations Specialists: Dexter Madera MD Triglyceride [Mass/Vol] 156 mg/dL High <150 [facility] Comment on above: Result Comment: Triglyceride Guidelines: <150 Desirable 150-199 Borderline 200-499 High >499 Very high Based on AHA Guidelines for fasting triglyceride, November 2011. Performed By: #### U RNMAB #### [employer] [address] [place] [address] Operations Specialists: Dexter Madera MD CBC with Auto Differentialon 04-29-2022 Absolute Eos # 0.45 High [facility] [employer] Immature Granulocyte 0.05 [facility] [employer] Absolute Lymph # 1.93 [facility] [employer] Absolute Upton # 0.85 [facility] [employer] Basophils (Bld) [#/Vol] 0.13 10*3/uL [facility] Basophils/100 WBC (Bld) 1 % 0 - 2 % [facility] Eosinophils/100 WBC (Bld) 4 % 1 - 4 % [facility] Hematocrit (Bld) [Volume fraction] 42.9 % 40.7 - 50.3 % [facility] Hemoglobin (Bld) [Mass/Vol] 14.6 g/dL 13.0 - 17.0 g/dL [facility] Immature granulocytes/100 WBC (Bld) 1 % High 0 [facility] Interpretation and review of laboratory results Abnormal [facility] Lymphocytes/100 WBC (Bld) 19 % Low 24 - 43 % [facility] MCH (RBC) [Entitic mass] 29.9 pg 25.2 - 33.5 pg [facility] MCHC (RBC) [Mass/Vol] 34.0 g/dL 28.4 - 34.8 g/dL [facility] MCV (RBC) [Entitic vol] 87.9 fL 82.6 - 102.9 fL [facility] Monocytes/100 WBC (Bld) 8 % 3 - 12 % [facility] NRBC Automated 0.0 0.0 per 100 WBC [facility] Platelet distribution width (Bld) [Ratio] 13.7 % 11.8 - 14.4 % [facility] Platelet mean volume (Bld) [Entitic vol] 9.4 fL 8.1 - 13.5 fL [facility] Platelets (Bld) [#/Vol] 358 10*3/uL [facility] RBC (Bld) [#/Vol] 4.88 10*6/uL 4.21 - 5.7 7 m/uL [facility] Segmented neutrophils/100 WBC (Bld) 67 % High 36 - 65 % [facility] Segs Absolute 6.89 [facility] WBC (Bld) [#/Vol] 10.3 10*3/uL [facility] CBC with Diffon 04-29-2022 Abs. Basophil 0.13 k/uL Normal 0.00-0.20 [facility] Comment on above: Performed By: #### C P, CDP #### [facility] [address] [place] [address] [place] [address] Operations Specialists: Barak Garcia MD Abs.Imm.Granulocyt e 0.05 k/uL Normal 0.00-0.30 [facility] Comment on above: Performed By: #### C P, CDP #### [facility] [address] [place] [address] [place] [address] Operations Specialists: Barak Garcia MD Abs.Neutrophil (Seg) 6.89 k/uL Normal 1.50-8.10 [facility] Comment on above: Performed By: #### C P, CDP #### [facility] [address] [place] [address] [place] [address] Operations Specialists: Barak Garcia MD Basophils/100 WBC (Bld) 1 % Normal 0-2 [facility] Comment on above: Performed By: #### C P, CDP #### [address] [place], [place] [address] Operations Specialists: Barak Garcia MD Eosinophils (Bld) [#/Vol] 0.45 10*3/uL High 0.00-0.44 [facility] Comment on above: Performed By: #### C P, CDP #### [address] [place], [place] [address] Operations Specialists: Barak Garcia MD Eosinophils/100 WBC (Bld) 4 % Normal 1-4 [facility] Comment on above: Performed By: #### C P, CDP #### [address] [place], [place] [address] Operations Specialists: Barka Garcia MD Erythrocyte distribution width (RBC) [Ratio] 13.7 % Normal 11.8-14.4 [facility] Comment on above: Performed By: #### C P, CDP #### [address] [place], [facility]83 Operations Specialists: Barak Garcia MD Hematocrit (Bld) [Volume fraction] 42.9 % Normal 40.7-50.3 [facility] Comment on above: Performed By: #### C P, CDP #### [facility] [address] [place], [facility]83 Operations Specialists: Barak Garcia MD Hemoglobin (Bld) [Mass/Vol] 14.6 g/dL Normal 13.0-17.0 [facility] Comment on above: Performed By: #### C P, CDP #### [facility] [address] [place], [facility]83 Operations Specialists: Barak Garcia MD Immature granulocytes/100 WBC (Bld) 1 % High 0 [facility] Comment on above: Performed By: #### C P, CDP #### [facility] [address] [place], [facility]83 Operations Specialists: Barak Garcia MD Lymphocytes (Bld) [#/Vol] 1.93 10*3/uL Normal 1.10-3.70 [facility] Comment on above: Performed By: #### C P, CDP #### [address] [place], [facility]83 Operations Specialists: Barak Garcia MD Lymphocytes/100 WBC (Bld) 19 % Low 24-43 [facility] Comment on above: Performed By: #### C P, CDP #### [facility] [address] [place] [address] Dr. [place], [place] [address] Operations Specialists: Barak Garcia MD MCH (RBC) [Entitic mass] 29.9 pg Normal 25.2-33.5 [facility] Comment on above: Performed By: #### C P, CDP #### [facility] [address] [place], [facility]83 Operations Specialists: Barak Garcia MD MCHC (RBC) [Mass/Vol] 34.0 g/dL Normal 28.4-34.8 [facility] Comment on above: Performed By: #### C P, CDP #### [facility] [address] [place], [place] [phone] Operations Specialists: Barak Garcia MD MCV (RBC) [Entitic vol] 87.9 fL Normal 82.6-102.9 [facility] Comment on above: Performed By: #### C P, CDP #### [address] [place], [place] [phone] Operations Specialists: Barak Garcia MD Monocytes (Bld) [#/Vol] 0.85 10*3/uL Normal 0.10-1.20 [facility] Comment on above: Performed By: #### C P, CDP #### [address] [place], [place] [phone] Operations Specialists: Barak Garcia MD Monocytes/100 WBC (Bld) 8 % Normal 3-12 [facility] Comment on above: Performed By: #### C P, CDP #### [address] [place], [place] [phone] Operations Specialists: Barak Garcia MD Neutrophil (Seg) 67 % High 36-65 [facility] Comment on above: Performed By: #### C P, CDP #### [address] [place], [place] [phone] Operations Specialists: Barak Garcia MD NRBC Automated 0.0 per 100 WBC Normal 0.0 [facility] Comment on above: Performed By: #### C P, CDP #### [address] [place], [place] [id number] Operations Specialists: Barak Garcia MD Platelet mean volume (Bld) [Entitic vol] 9.4 fL Normal 8.1-13.5 [facility] Comment on above: Performed By: #### C P, CDP #### [address] [place] [address] Operations Specialists: Barak Garcia MD Platelets (Bld) [#/Vol] 358 10*3/uL Normal 138-453 [facility] Comment on above: Performed By: #### C P, CDP #### [facility] [address] [place] [address] Operations Specialists: Barak Garcia MD RBC (Bld) [#/Vol] 4.88 10*6/uL Normal 4.21-5.77 [facility] Comment on above: Performed By: #### C P, CDP #### [facility] [address] [place], [place] [id number] Operations Specialists: Barak Garcia MD WBC (Bld) [#/Vol] 10.3 10*3/uL Normal 3.5-11.3 [facility] Comment on above: Performed By: #### C P, CDP #### [facility] [address] [place], [place] [id number] Operations Specialists: Barak Garcia MD Comp Metabolic Profon 2022 Albumin [Mass/Vol] 4.0 g/dL Normal 3.5-5.2 [facility] Comment on above: Performed By: #### C P, CDP #### [facility] [address] [place], [place] [id number] Operations Specialists: Barak Garcia MD Albumin/Glob Ratio 1.1 Normal 1.0-2.5 [facility] Comment on above: Performed By: #### C P, CDP #### [facility] [address] [place], [place] [id number] Operations Specialists: Barak Garcia MD Alkaline Phos 75 U/L Normal 40-129 [facility] Comment on above: Performed By: #### C P, CDP #### [facility] [address] [place] [address] Operations Specialists: Barak Garcia MD ALT [Catalytic activity/Vol] 33 U/L Normal 5-41 [facility] Comment on above: Performed By: #### C P, CDP #### [facility] [address] [place], [place] [id number] Operations Specialists: Barak Garcia MD Anion gap [Moles/Vol] 8 mmol/L Low 9-17 [facility] Comment on above: Performed By: #### C P, CDP #### [facility] [address] [place], [place] [id number] Operations Specialists: Barak Garcia MD AST [Catalytic activity/Vol] 29 U/L Normal <40 [facility] Comment on above: Performed By: #### C P, CDP #### [facility] [address] [place], [place] [id number] Operations Specialists: Barak Garcia MD Bilirubin [Mass/Vol] 0.4 mg/dL Normal 0.3-1.2 [facility] Comment on above: Performed By: #### C P, CDP #### [facility] [address] [place], [place] [id number] Operations Specialists: Barak Garcia MD BUN/CRE Ratio 18 Normal 9-20 [facility] Comment on above: Performed By: #### C P, CDP #### [facility] [address] [place], [place] [id number] Operations Specialists: Barak Garcia MD Calcium [Mass/Vol] 9.7 mg/dL Normal 8.6-10.4 [facility] Comment on above: Performed By: #### C P, CDP #### [facility] [address] [place], [place] [id number] Operations Specialists: Barak Garcia MD Chloride [Moles/Vol] 100 mmol/L Normal 98-107 [facility] Comment on above: Performed By: #### C P, CDP #### [facility] [address] [place], [place] [id number] Operations Specialists: Barak Garcia MD CO2 [Moles/Vol] 30 mmol/L Normal 20-31 [facility] Comment on above: Performed By: #### C P, CDP #### [facility] [address] [place] [address] Operations Specialists: Barak Garcia MD Creatinine [Mass/Vol] 0.79 mg/dL Normal 0.70-1.20 [facility] Comment on above: Performed By: #### C P, CDP #### [facility] [address] [place] [address] Operations Specialists: Barak Garcia MD GFR/1.73 sq M.predicted among non-blacks MDRD (S/P/Bld) [Vol rate/Area] mL/min/{1.73_m2} Normal >60 [facility] Comment on above: Result Comment: These results are not intended for use in patients <18 years of age. eGFR results are calculated without a race factor using the 2020 CKD-EPI equation. Careful clinical correlation is recommended, particularly when comparing to results calculated using previous equations. The CKD-EPI equation is less accurate in patients with extremes of muscle mass, extra-renal metabolism of creatine, excessive creatine ingestion, or following therapy that affects renal tubular secretion. Performed By: #### C P, CDP #### [address] [place] [address] Operations Specialists: Barak Garcia MD Glucose [Mass/Vol] 191 mg/dL High 70-99 [facility] Comment on above: Performed By: #### C P, CDP #### [facility] [address] [place] [address] Operations Specialists: Barak Garcia MD Potassium [Moles/Vol] 4.2 mmol/L Normal 3.7-5.3 [facility] Comment on above: Performed By: #### C P, CDP #### [address] [place] [address] Operations Specialists: Barak Garcia MD Protein [Mass/Vol] 7.5 g/dL Normal 6.4-8.3 [facility] Comment on above: Performed By: #### C P, CDP #### [facility] [address] [place] [address] Operations Specialists: Barak Garcia MD Sodium [Moles/Vol] 138 mmol/L Normal 135-144 [facility] Comment on above: Performed By: #### C P, CDP #### [facility] [address] [place] [address] Operations Specialists: Barak Garcia MD Urea nitrogen [Mass/Vol] 14 mg/dL Normal 8-23 [facility] Comment on above: Performed By: #### C P, CDP #### [facility] [address] [place] [address] Operations Specialists: Barak Garcia MD Comprehensive Metabolic Pane [facility] 04-29-2022 Albumin [Mass/Vol] 4 g/dL 3.5 - 5.2 g/dL [facility] Albumin/Globulin [Mass ratio] 1.1 {ratio} 1.0 - 2.5 [facility] ALP [Catalytic activity/Vol] 75 U/L 40 - 129 U/L [facility] ALT [Catalytic activity/Vol] 33 U/L 5 - 41 U/L [facility] Anion gap [Moles/Vol] 8 mmol/L Low 9 - 17 mmol/L [facility] AST [Catalytic activity/Vol] 29 U/L NINF - 40 U/L [facility] Bilirubin [Mass/Vol] 0.4 mg/dL 0.3 - 1.2 mg/dL [facility] Calcium [Mass/Vol] 9.7 mg/dL 8.6 - 10. 4 mg/dL [facility] Chloride [Moles/Vol] 100 mmol/L 98 - 107 mmol/L [facility] CO2 [Moles/Vol] 30 mmol/L 20 - 31 mmol/L [facility] Creatinine [Mass/Vol] 0.79 mg/dL 0.70 - 1.20 mg/dL [facility] GFR/1.73 sq M.predicted MDRD (S/P/Bld) [Vol rate/Area] - PINF [facility] Comment on above: These results are not intended for use in patients <18 years of age. eGFR results are calculated without a race factor using the 2020 CKD-EPI equation. Careful clinical correlation is recommended, particularly when comparing to results calculated using previous equations. The CKD-EPI equation is less accurate in patients with extremes of muscle mass, extra-renal metabolism of creatine, excessive creatine ingestion, or following therapy that affects renal tubular secretion. Glucose [Mass/Vol] 191 mg/dL High 70 - 99 mg/dL [facility] Interpretation and review of laboratory results Abnormal [facility] [employer] Potassium [Moles/Vol] 4.2 mmol/L 3.7 - 5.3 mmol/L [facility] Protein [Mass/Vol] 7.5 g/dL 6.4 - 8.3 g/dL [facility] [employer] Sodium [Moles/Vol] 138 mmol/L 135 - 144 mmol/L [facility] Urea nitrogen [Mass/Vol] 14 mg/dL 8 - 23 mg/dL [facility] [employer] Urea nitrogen/Creatinin e (Bld) [Mass ratio] 18 9 - 20 [facility] Lipid Panelon 04-29-2022 Cholesterol [Mass/Vol] 167 mg/dL NINF - 200 mg/dL [facility] [employer] Comment on above: Cholesterol Guidelines: <200 Desirable 200-240 Borderline >240 Undesirable Cholesterol in HDL [Mass/Vol] 39 mg/dL Low 40 - PINF mg/dL [facility] Comment on above: HDL Guidelines: <40 Undesirable 40-59 Borderline >59 Desirable Cholesterol in LDL [Mass/Vol] 97 mg/dL 0 - 130 mg/dL [facility] Comment on above: LDL Guidelines: <100 Desirable 100-129 Near to/above Desirable 130-159 Borderline >159 Undesirable Direct (measured) LDL and calculated LDL are not interchangeable tests. Cholesterol.total/ Cholesterol in HDL [Mass ratio] 4.3 {ratio} NINF - 5 [facility] Interpretation and review of laboratory results Abnormal [facility] Triglyceride [Mass/Vol] 156 mg/dL High NINF - 150 mg/dL [facility] Comment on above: Triglyceride Guidelines: <150 Desirable 150-199 Borderline 200-499 High >499 Very high Based on AHA Guidelines for fasting triglyceride, November 2011. [facility] TSHon 04-29-2022 TSH Qn 3.05 m[IU]/L [facility] Thyroid Stim. Horm.on 2022 Thyroid Stim. Horm. 3.05 uIU/mL Normal 0.30-5.00 [facility] Comment on above: Performed By: #### T SH #### [facility] [address] [place] [address] Operations Specialists: Barak Garcia MD Basic Metabolic Panelon 06-23 Anion gap [Moles/Vol] 10 mmol/L 9 - 17 mmol/L [facility] Calcium [Mass/Vol] 9.7 mg/dL 8.6 - 10. 4 mg/dL [facility] Chloride [Moles/Vol] 102 mmol/L 98 - 107 mmol/L [facility] CO2 [Moles/Vol] 27 mmol/L 20 - 31 mmol/L [facility] Creatinine [Mass/Vol] 0.62 mg/dL Low 0.70 - 1.20 mg/dL [facility] GFR >60 >60 mL/min [facility] GFR Non- >60 >60 mL/min [facility] Glucose [Mass/Vol] 192 mg/dL High 70 - 99 mg/dL [facility] Interpretation and review of laboratory results Abnormal [facility] Potassium [Moles/Vol] 4.0 mmol/L 3.7 - 5.3 mmol/L [facility] Sodium [Moles/Vol] 139 mmol/L 135 - 144 mmol/L [facility] Urea nitrogen (BldV) [Mass/Vol] 11 mg/dL 8 - 23 mg/dL [facility] Urea nitrogen/Creatinin e (Bld) [Mass ratio] 18 [facility] CBC with Auto Differentialon 07-21-2021 Absolute Eos # 0.42 [facility] Absolute Immature Granulocyte 0.04 [facility] Absolute Lymph # 2.29 [facility] Absolute [place] # 0.86 [facility] Basophils (Bld) [#/Vol] 0.11 10*3/uL [facility] Basophils/100 WBC (Bld) 1 % 0 - 2 % [facility] Eosinophils/100 WBC (Bld) 4 % 1 - 4 % [facility] Hematocrit (Bld) [Volume fraction] 43.6 % 40.7 - 50.3 % [facility] Hemoglobin.gastroi ntestinal spec 1 Ql (Stl) 14.3 g/dL 13.0 - 17.0 g/dL [facility] Immature granulocytes/100 WBC (Bld) 0 % 0 [facility] Interpretation and review of laboratory results Abnormal [facility] Lymphocytes/100 WBC (Bld) 21 % Low 24 - 43 % [facility] MCH (RBC) [Entitic mass] 29.2 pg 25.2 - 33.5 pg [facility] MCHC (RBC) [Mass/Vol] 32.8 g/dL 28.4 - 34.8 g/dL [facility] MCV (RBC) [Entitic vol] 89.0 fL 82.6 - 102.9 fL [facility] Monocytes/100 WBC (Bld) 8 % 3 - 12 % [facility] NRBC Automated 0.0 0.0 per 100 WBC [facility] Platelet distribution width (Bld) [Ratio] 13.7 % 11.8 - 14.4 % [facility] Platelet mean volume (Bld) [Entitic vol] 9.6 fL 8.1 - 13.5 fL [facility] Platelets (Bld) [#/Vol] 392 10*3/uL [facility] RBC (Bld) [#/Vol] 4.90 10*6/uL 4.21 - 5.7 7 m/uL [facility] Segmented neutrophils/100 WBC (Bld) 66 % High 36 - 65 % [facility] Segs Absolute 7.34 [facility] WBC (Bld) [#/Vol] 11.1 10*3/uL [facility] Laboratory - Chemistry and C hemistry - challengeon 07-21-2021 GFR/1.73 sq M.predicted MDRD (S/P/Bld) [Vol rate/Area] [facility] Comment on above: Average GFR for 60-6 9 years old: 85 mL/min/1.73sq m Chronic Kidney Disease: <60 mL/min/1.73sq m Kidney failure: <15 mL/min/1.73sq m eGFR calculated using average adult body mass. Additional eGFR calculator available at: http://www.PriceArea/multiple_crcl_2012.htm Stage 1: Some kidney damage normal GFR Stage 2: Mild kidney damage GFR 60-89 Stage 3: Moderate kidney damage GFR 30-59 Stage 4: Severe kidney damage GFR 15-29 Stage 5: Severe kidney damage GFR <15 ESRD - chronic treatment by dialysis or transplant CBC with Auto Differentialon 06-01-2021 Absolute Eos # 0.62 High [facility] th Absolute Immature Granulocyte 0.05 [facility] Absolute Lymph # 2.36 [facility] alth Absolute [place]pton # 0.78 [facility] lth Basophils (Bld) [#/Vol] 0.12 10*3/uL [facility] Basophils/100 WBC (Bld) 1 % 0 - 2 % [facility] Eosinophils/100 WBC (Bld) 6 % High 1 - 4 % [facility] Hematocrit (Bld) [Volume fraction] 44.6 % 40.7 - 50.3 % [facility] Hemoglobin.gastroi ntestinal spec 1 Ql (Stl) 14.4 g/dL 13.0 - 17.0 g/dL [facility] Immature granulocytes/100 WBC (Bld) 1 % High 0 [facility] Interpretation and review of laboratory results Abnormal [facility] Lymphocytes/100 WBC (Bld) 24 % 24 - 43 % [facility] MCH (RBC) [Entitic mass] 28.7 pg 25.2 - 33.5 pg [facility] MCHC (RBC) [Mass/Vol] 32.3 g/dL 28.4 - 34.8 g/dL [facility] MCV (RBC) [Entitic vol] 89.0 fL 82.6 - 102.9 fL [facility] Monocytes/100 WBC (Bld) 8 % 3 - 12 % [facility] NRBC Automated 0.0 0.0 per 100 WBC [facility] Platelet distribution width (Bld) [Ratio] 13.9 % 11.8 - 14.4 % [facility] Platelet mean volume (Bld) [Entitic vol] 9.3 fL 8.1 - 13.5 fL [facility] Platelets (Bld) [#/Vol] 378 10*3/uL [facility] RBC (Bld) [#/Vol] 5.01 10*6/uL 4.21 - 5.7 7 m/uL [facility] Segmented neutrophils/100 WBC (Bld) 60 % 36 - 65 % [facility] Segs [facility] 5.92 [facility] W[facility] (Bld) [#/Vol] 9.9 10*3/uL [facility] Comprehensive Metabolic Pane jesus 06-01-2021 Albumin [Mass/Vol] 4.2 g/dL 3.5 - 5.2 g/dL [facility] Albumin/Globulin [Mass ratio] 1.4 {ratio} [facility] ALP (Bld) [Catalytic activity/Vol] 75 U/L 40 - 129 U/L [facility] ALT [Catalytic activity/Vol] 43 U/L High 5 - 41 U/L [facility] Anion gap [Moles/Vol] 13 mmol/L 9 - 17 mmol/L [facility] AST [Catalytic activity/Vol] 32 U/L <40 [facility] Bilirubin [Mass/Vol] 0.45 mg/dL 0.3 - 1.2 mg/dL [facility] Calcium [Mass/Vol] 9.8 mg/dL 8.6 - 10. 4 mg/dL [facility] Chloride [Moles/Vol] 101 mmol/L 98 - 107 mmol/L [facility] CO2 [Moles/Vol] 24 mmol/L 20 - 31 mmol/L [facility] Creatinine [Mass/Vol] 0.79 mg/dL 0.70 - 1.20 mg/dL [facility] Free PSA/Total PSA [Mass fraction] 7.3 g/dL 6.4 - 8.3 g/dL [facility] GFR >60 >60 mL/min [facility] GFR Non- >60 >60 mL/min [facility] Glucose [Mass/Vol] 244 mg/dL High 70 - 99 mg/dL [facility] Interpretation and review of laboratory results Abnormal [facility] Potassium [Moles/Vol] 3.8 mmol/L 3.7 - 5.3 mmol/L [facility] Sodium [Moles/Vol] 138 mmol/L 135 - 144 mmol/L [facility] Urea nitrogen (BldV) [Mass/Vol] 13 mg/dL 8 - 23 mg/dL [facility] Urea nitrogen/Creatinin e (Bld) [Mass ratio] 16 [facility] Laboratory - Chemistry and C hemistry - challengeon 06-01-2021 GFR/1.73 sq M.predicted MDRD (S/P/Bld) [Vol rate/Area] [facility] Comment on above: Average GFR for 60-6 9 years old: 85 mL/min/1.73sq m Chronic Kidney Disease: <60 mL/min/1.73sq m Kidney failure: <15 mL/min/1.73sq m eGFR calculated using average adult body mass. Additional eGFR calculator available at: http://www.PriceArea/multiple_crcl_2012.htm Stage 1: Some kidney damage normal GFR Stage 2: Mild kidney damage GFR 60-89 Stage 3: Moderate kidney damage GFR 30-59 Stage 4: Severe kidney damage GFR 15-29 Stage 5: Severe kidney damage GFR <15 ESRD - chronic treatment by dialysis or transplant Lipid Panelon 06-01-2021 Cholesterol [Mass/Vol] 148 mg/dL <200 [facility] Comment on above: Cholesterol Guidelines: <200 Desirable 200-240 Borderline >240 Undesirable Cholesterol in HDL [Mass/Vol] 35 mg/dL Low >40 [facility] Comment on above: HDL Guidelines: <40 Undesirable 40-59 Borderline >59 Desirable Cholesterol in LDL [Mass/Vol] 80 mg/dL 0 - 130 mg/dL [facility] Comment on above: LDL Guidelines: <100 Desirable 100-129 Near to/above Desirable 130-159 Borderline >159 Undesirable Direct (measured) LDL and calculated LDL are not interchangeable tests. Cholesterol.total/ Cholesterol in HDL [Mass ratio] 4.2 {ratio} <5 [facility] Interpretation and review of laboratory results Abnormal [facility] Triglyceride [Mass/Vol] 164 mg/dL High <150 [facility] Comment on above: Triglyceride Guidelines: <150 Desirable 150-199 Borderline 200-499 High >499 Very high Based on AHA Guidelines for fasting triglyceride, November 2011. [facility] PSA Screeningon 06-01-2021 [facility] CBC Auto Differentialon 12-22 Basophils (Bld) [#/Vol] 0.14 10*3/uL [place] Basophils/100 WBC (Bld) 1 % 0 - 2 % [place] Differential Type NOT REPORTED [place] Eosinophils (Bld) [#/Vol] 0.56 10*3/uL [place] Eosinophils/100 WBC (Bld) 5 % High 1 - 4 % [place] Erythrocyte distribution width (RBC) [Ratio] 13.9 % 11.8 - 14.4 % [place] Hematocrit (Bld) [Volume fraction] 43.8 % 40.7 - 50.3 % [place] Hemoglobin (Bld) [Mass/Vol] 13.9 g/dL 13 - 17 g/dL [place] Immature granulocytes (Bld) [#/Vol] 0.06 10*3/uL [place] Immature granulocytes (Bld) [#/Vol] 1 % High 0 [place] Interpretation and review of laboratory results Abnormal [place] Lymphocytes (Bld) [#/Vol] 2.18 10*3/uL [place] Lymphocytes/100 WBC (Bld) 19 % Low 24 - 43 % [place] MCH (RBC) [Entitic mass] 28.7 pg 25.2 - 33.5 pg [place] MCHC (RBC) [Mass/Vol] 31.7 g/dL 28.4 - 34.8 g/dL [place] MCV (RBC) [Entitic vol] 90.5 fL 82.6 - 102.9 fL [place] Monocytes (Bld) [#/Vol] 0.87 10*3/uL [place] Monocytes/100 WBC (Bld) 8 % 3 - 12 % [place] Platelet mean volume (Bld) [Entitic vol] 8.9 fL 8.1 - 13.5 fL [place] Platelets (Bld) [#/Vol] NOT REPORTED [place] Platelets (Bld) [#/Vol] 376 10*3/uL [place] RBC (Bld) [#/Vol] 4.84 10*6/uL 4.21 - 5.7 7 m/uL [place] RBC morphology finding Nom (Bld) NOT REPORTED [place] Segmented neutrophils/100 WBC (Bld) 66 % High 36 - 65 % [place] Segs Absolute 7.52 [place] WBC (Bld) [#/Vol] 0.0 10*3/uL 0.0 per 10 0 WBC [place] WBC (Bld) [#/Vol] 11.3 10*3/uL [place] WBC Morphology NOT REPORTED [place] Comprehensive Metabolic Pane jesus 01-08-2020 Albumin [Mass/Vol] 4.4 g/dL 3.5 - 5.2 g/dL [place] Albumin/Globulin [Mass ratio] 1.4 {ratio} [place] ALP [Catalytic activity/Vol] 63 U/L 40 - 129 U/L [place] ALT [Catalytic activity/Vol] 35 U/L 5 - 41 U/L [place] Anion gap [Moles/Vol] 14 mmol/L 9 - 17 mmol/L [place] AST [Catalytic activity/Vol] 31 U/L <40 [place] Bilirubin Ql (U) 0.30 mg/dL 0.3 - 1.2 mg/dL [place] Bun/Cre Ratio 20 [place] Calcium [Mass/Vol] 10.0 mg/dL 8.6 - 10. 4 mg/dL [place] Chloride [Moles/Vol] 99 mmol/L 98 - 107 mmol/L [place] CO2 [Moles/Vol] 24 mmol/L 20 - 31 mmol/L [place] Creatinine [Mass/Vol] 0.71 mg/dL 0.7 - 1.2 mg/dL [place] GFR >60 >60 mL/min [place] GFR Non- >60 >60 mL/min [place] Glucose [Mass/Vol] 225 mg/dL High 70 - 99 mg/dL [place] Interpretation and review of laboratory results Abnormal [place] Potassium [Moles/Vol] 4.0 mmol/L 3.7 - 5.3 mmol/L [place] Protein [Mass/Vol] 7.5 g/dL 6.4 - 8.3 g/dL [place] Sodium [Moles/Vol] 137 mmol/L 135 - 144 mmol/L [place] Urea nitrogen [Mass/Vol] 14 mg/dL 8 - 23 mg/dL [place] Lipid Panelon 01-08-2020 Cholesterol [Mass/Vol] 144 mg/dL <200 [place] Comment on above: Cholesterol Guidelines: <200 Desirable 200-240 Borderline >240 Undesirable Cholesterol in HDL [Mass/Vol] 34 mg/dL Low >40 [place] Comment on above: HDL Guidelines: <40 Undesirable 40-59 Borderline >59 Desirable Cholesterol in LDL [Mass/Vol] 84 mg/dL 0 - 130 mg/dL [place] Comment on above: LDL Guidelines: <100 Desirable 100-129 Near to/above Desirable 130-159 Borderline >159 Undesirable Direct (measured) LDL and calculated LDL are not interchangeable tests. Cholesterol in VLDL [Mass/Vol] NOT REPORTED 1 - 30 mg/dL [place] Cholesterol.total/ Cholesterol in HDL [Mass ratio] 4.2 {ratio} <5 [place] Interpretation and review of laboratory results Abnormal [place] Triglyceride [Mass/Vol] 130 mg/dL <150 [place] Comment on above: Triglyceride Guidelines: <150 Desirable 150-199 Borderline 200-499 High >499 Very high Based on AHA Guidelines for fasting triglyceride, November 2011. Metabolic Panelon 01-08-2020 GFR/1.73 sq M predicted among non-blacks MDRD (S/P/Bld) [Vol rate/Area] [place] Comment on above: Stage 1: Some kidney damage normal GFR Stage 2: Mild kidney damage GFR 60-89 Stage 3: Moderate kidney damage GFR 30-59 Stage 4: Severe kidney damage GFR 15-29 Stage 5: Severe kidney damage GFR <15 ESRD - chronic treatment by dialysis or transplant Average GFR for 60-6 9 years old: 85 mL/min/1.73sq m Chronic Kidney Disease: <60 mL/min/1.73sq m Kidney failure: <15 mL/min/1.73sq m eGFR calculated using average adult body mass. Additional eGFR calculator available at: http://www.PriceArea/multiple_crcl_2012.htm Microalbumin, Uron 0 Albumin/Creatinine DL <= 20 mg/L (24H U) [Mass ratio] 53 mg/L High <21 [place] Albumin/Creatinine DL <= 20 mg/L (U) [Ratio] 28 High <17 mcg/mg creat [place] Creatinine [Mass/Vol] 189.9 mg/dL 39 - 259 mg/dL [place] Interpretation and review of laboratory results Abnormal [place] Cult,Aerobe/Anaerobeon 01-14 Cult,Aerobe/Anaero be Specimen Description .BUTTOCK Special Requests NOT REPORTED Direct Exam RARE NEUTROPHILS FEW GRAM POSITIVE COCCI IN PAIRS Culture ESCHERICHIA COLI SCANT GROWTH KLEBSIELLA PNEUMONIAE LIGHT GROWTH NORMAL LIZ MIXED ANAEROBIC LIZ Report Status FINAL 01/16/2019 SUSCEPTIBILITY Organism ESCHERICHIA COLI Method GLENN Amikacin NOT REPORTED Ampicillin <=2 SUSCEPTIBLE Ampicillin/Sulbactam NOT REPORTED Aztreonam <=1 SUSCEPTIBLE Cefazolin <=4 SUSCEPTIBLE Cefepime NOT REPORTED Ceftriaxone <=1 SUSCEPTIBLE Ciprofloxacin <=0.25 SUSCEPTIBLE Ertapenem NOT REPORTED ESBL NEGATIVE Gentamicin <=1 SUSCEPTIBLE Meropenem NOT REPORTED Nitrofurantoin NOT REPORTED Tigecycline NOT REPORTED Tobramycin <=1 SUSCEPTIBLE Trimethoprim/Sulfa <=20 SUSCEPTIBLE Piperacillin/Tazobactam <=4 SUSCEPTIBLE SUSCEPTIBILITY Organism KLEBSIELLA PNEUMONIAE Method GLENN Amikacin NOT REPORTED Ampicillin >=32 RESISTANT Ampicillin/Sulbactam NOT REPORTED Aztreonam <=1 SUSCEPTIBLE Cefazolin <=4 SUSCEPTIBLE Cefepime NOT REPORTED Ceftriaxone <=1 SUSCEPTIBLE Ciprofloxacin <=0.25 SUSCEPTIBLE Ertapenem NOT REPORTED ESBL NEGATIVE Gentamicin <=1 SUSCEPTIBLE Meropenem NOT REPORTED Nitrofurantoin NOT REPORTED Tigecycline NOT REPORTED Tobramycin <=1 SUSCEPTIBLE Trimethoprim/Sulfa <=20 SUSCEPTIBLE Piperacillin/Tazobactam <=4 SUSCEPTIBLE Normal [facility] Comment on above: Performed By: #### A ANC #### [facility] [address] [place] [address] Operations Specialists: Dexter Madera MD [facility] [address] [place] [address] Operations Specialists: Morgan Andino MD CBC auto differentialon 12-23 Basophils (Bld) [#/Vol] 0.10 10*3/uL [place], [place] Basophils/100 WBC (Bld) 1 % 0 - 2 % [place] Differential Type YES [place] Eosinophils (Bld) [#/Vol] 0.10 10*3/uL [place] Eosinophils/100 WBC (Bld) 1 % 0 - 5 % [place] Erythrocyte distribution width (RBC) [Ratio] 13.9 % 12.1 - 15.2 % [place] Hematocrit (Bld) [Volume fraction] 40.3 % Low 41 - 53 % [place] Hemoglobin (Bld) [Mass/Vol] 13.5 g/dL 13.5 - 17.5 g/dL [place] Interpretation and review of laboratory results Abnormal [place] Lymphocytes (Bld) [#/Vol] 1.40 10*3/uL [place] Lymphocytes/100 WBC (Bld) 11 % Low 13 - 44 % [place] MCH (RBC) [Entitic mass] 28.9 pg 26 - 34 pg [place] MCHC (RBC) [Mass/Vol] 33.5 g/dL 31 - 37 g/dL [place] MCV (RBC) [Entitic vol] 86.1 fL 80 - 100 fL [place] Monocytes (Bld) [#/Vol] 1.10 10*3/uL [place] Monocytes/100 WBC (Bld) 9 % 5 - 9 % [place] Platelet mean volume (Bld) [Entitic vol] NOT REPORTED 6 - 12 fL [place] Platelets (Bld) [#/Vol] 317 10*3/uL [place] Platelets (Bld) [#/Vol] NOT REPORTED [place] RBC (Bld) [#/Vol] 4.68 10*6/uL 4.5 - 5.9 m/uL [place] RBC morphology finding Nom (Bld) NOT REPORTED [place] Segmented neutrophils/100 WBC (Bld) 78 % High 39 - 75 % [place] Segs Absolute 9.70 High [place] WBC (Bld) [#/Vol] NOT REPORTED per 100 WBC [place] WBC (Bld) [#/Vol] 12.3 10*3/uL [place] WBC Morphology NOT REPORTED [place], [place] CBC with Diffon 01-12-2019 Abs. Basophil 0.10 k/uL Normal 0.0-0.2 [facility] Comment on above: Performed By: #### C DP #### [facility] [address] [place] [address] Operations Specialists: Morgan Andino MD Abs.Neutrophil (Seg) 9.70 k/uL High 2.1-6.5 [facility] Comment on above: Performed By: #### C DP #### [facility] [address] [place] [address] Operations Specialists: Morgan Andino MD Auto Diff Performed YES Normal [facility] Comment on above: Performed By: #### C DP #### [facility] [address] [place] [address] Operations Specialists: Morgan Andino MD Basophils/100 WBC (Bld) 1 % Normal 0-2 [facility] Comment on above: Performed By: #### C DP #### [facility] [address] [place] [address] Operations Specialists: Morgan Andino MD Eosinophils (Bld) [#/Vol] 0.10 10*3/uL Normal 0.0-0.4 [facility] Comment on above: Performed By: #### C DP #### [facility] [address] [place] [address] Operations Specialists: Morgan Andino MD Eosinophils/100 WBC (Bld) 1 % Normal 0-5 [facility] Comment on above: Performed By: #### C DP #### [facility] [address] [place] [address] Operations Specialists: Morgan Andino MD Erythrocyte distribution width (RBC) [Ratio] 13.9 % Normal 12.1-15.2 [facility] Comment on above: Performed By: #### C DP #### [facility] [address] [place] [address] Operations Specialists: Morgan Andino MD Hematocrit (Bld) [Volume fraction] 40.3 % Low 41-53 [facility] Comment on above: Performed By: #### C DP #### [facility] [address] [place] [address] Operations Specialists: Morgan Andino MD Hemoglobin (Bld) [Mass/Vol] 13.5 g/dL Normal 13.5-17.5 [facility] Comment on above: Performed By: #### C DP #### [facility] [address] [place] [address] Operations Specialists: Morgan Andino MD Lymphocytes (Bld) [#/Vol] 1.40 10*3/uL Normal 1.0-4.8 [facility] Comment on above: Performed By: #### C DP #### [facility] [address] [place] [address] Operations Specialists: Morgan Andino MD Lymphocytes/100 WBC (Bld) 11 % Low 13-44 [facility] Comment on above: Performed By: #### C DP #### [facility] [address] [place] [address] (969) Operations Specialists: Morgan Andino MD MCH (RBC) [Entitic mass] 28.9 pg Normal 26-34 [facility] Comment on above: Performed By: #### C DP #### [facility] [address] [place] [address] Operations Specialists: Morgan Andino MD MCHC (RBC) [Mass/Vol] 33.5 g/dL Normal 31-37 [facility] Comment on above: Performed By: #### C DP #### [facility] [address] [place] [address] Operations Specialists: Morgan Andino MD MCV (RBC) [Entitic vol] 86.1 fL Normal 80-100 [facility] Comment on above: Performed By: #### C DP #### [facility] [address] [place] [address] Operations Specialists: Morgan Andino MD Monocytes (Bld) [#/Vol] 1.10 10*3/uL High 0.0-1.0 [facility] Comment on above: Performed By: #### C DP #### [facility] [address] [place] [address] Operations Specialists: Morgan Andino MD Monocytes/100 WBC (Bld) 9 % Normal 5-9 [facility] Comment on above: Performed By: #### C DP #### [facility] [address] [place] [address] Operations Specialists: Morgan Andino MD Neutrophil (Seg) 78 % High 39-75 [facility] Comment on above: Performed By: #### C DP #### [facility] [address] [place] [address] Operations Specialists: Morgan Andino MD Platelets (Bld) [#/Vol] 317 10*3/uL Normal 140-450 [facility] Comment on above: Performed By: #### C DP #### [facility] [address] [place] [address] Operations Specialists: Morgan Andino MD RBC (Bld) [#/Vol] 4.68 10*6/uL Normal 4.5-5.9 [facility] Comment on above: Performed By: #### C DP #### [facility] [address] [place] [address] Operations Specialists: Morgan Andino MD WBC (Bld) [#/Vol] 12.3 10*3/uL High 3.5-11.0 [facility] Comment on above: Performed By: #### C DP #### [facility] [address] [place] [address] Operations Specialists: Morgan Andino MD Abs.Imm.Granulocyt e NOT REPORTED Normal 0.00-0.30 [facility] Comment on above: Performed By: #### C DP #### [facility] [address] [place] [address] Operations Specialists: Morgan Andino MD Immature granulocytes (Bld) [#/Vol] NOT REPORTED Normal 0 [facility] Comment on above: Performed By: #### C DP #### [facility] [address] [place] [address] Operations Specialists: Morgan Andino MD NRBC Automated NOT REPORTED Normal [facility] Comment on above: Performed By: #### C DP #### [facility] [address] [place] [address] Operations Specialists: Morgan Andino MD Platelet mean volume (Bld) [Entitic vol] NOT REPORTED Normal 6.0-12.0 [facility] Comment on above: Performed By: #### C DP #### [facility] [address] [place] [address] Operations Specialists: Morgan Andino MD Platelets (Bld) [#/Vol] NOT REPORTED Normal [facility] Comment on above: Performed By: #### C DP #### [facility] [address] [place] [address] Operations Specialists: Morgan Andino MD RBC morphology finding Nom (Bld) NOT REPORTED Normal [facility] Comment on above: Performed By: #### C DP #### [facility] [address] [place] [address] Operations Specialists: Morgan Andino MD WBC Morphology NOT REPORTED Normal [facility] Comment on above: Performed By: #### C DP #### [facility] [address] [place] [address] Operations Specialists: Morgan Andino MD Glucose, Whole Bloodon 01-12 Glucose [Mass/Vol] 242 mg/dL High 65 - 99 mg/dL [place] Interpretation and review of laboratory results Abnormal [place] Glucose [Mass/Vol] 261 mg/dL High 65 - 99 mg/dL [place] Interpretation and review of laboratory results Abnormal [place] OPERATIVE REPORTon 9 OPERATIVE REPORT [facility] [address] [place] [address] OPERATIVE REPORT PATIENT NAME: KWABENA AKERS : 1950 MED REC NO: [id number] ROOM: ACCOUNT NO: [id number] ADMIT DATE: 01/12/2019 PROVIDER: Jessica Cooper DATE OF PROCEDURE: 01/12/2019 ATTENDING SURGEON: Jessica Cooper MD PCP: Phil Molina MD PREOPERATIVE DIAGNOSIS: Perirectal/gluteal abscess. POSTOPERATIVE DIAGNOSIS: Perirectal/gluteal abscess. OPERATION: 1. Exam under anesthesia. 2. I and D perirectal/gluteal abscess. ANESTHESIA: General endotracheal tube. IV FLUIDS: 500 mL of crystalloid. ESTIMATED BLOOD LOSS: Less than 20 mL. INDICATIONS: The patient is a 68-year-old morbidly obese white male, who began having pain over his coccyx and left gluteal region beginning 4 days ago. It has since worsened and become exquisitely tender. He has a history of pilonidal disease. His discomfort is similar to that in the past. Prior surgery for infected pilonidal cysts years ago. No previous perirectal/perianal abscess. Colonoscopy with polypectomy in 2014. At this time, I and D of abscess is indicated. OPERATIVE PROCEDURE: After obtaining informed consent with discussion of risks, benefits, and alternatives including a remote risk of bleeding, infection, recurrence, incontinence, fistulization, etc., the patient was taken to the operating theater and placed in the right lateral recumbent position. Following adequate IV sedation, he was prepped and draped in the standard fashion. A digital rectal exam was performed. Sphincter tone was normal. Prostate was mildly enlarged with no discrete masses. There was no obvious perianal fluctuance. An anal speculum was introduced into the lower rectum. Some formed stool was present in the lower rectal vault. Perianal skin was normal in appearance with no evidence of internal fistulization. There was fullness over the coccyx extending into the left gluteal skin. A punctum was present. A 1% lidocaine with 0.25% Marcaine was used to topically anesthetize the skin and subcutaneous tissues surrounding the punctum. An incision was carried down through the skin and subcutaneous tissues into a deep lying perirectal/gluteal abscess to the left of midline. The abscess cavity was encountered. Pus was expressed. Samples of which were sent for C and S, aerobic and anaerobic cultures. The abscess cavity was digitally deloculated, then irrigated with copious amounts of sterile saline until clear. The abscess cavity ran inferiorly towards the upper perirectal space just to the left of midline. A suitable location below the draining incision was selected. An incision was carried down through the skin and subcutaneous tissues in this location communicating with the draining incision. Between the incisions, a small Alejo drain was passed and sutured to itself to maintain wound patency and ease of future packing. The wound was irrigated with dilute Betadine solution and packed with half-inch Nu Gauze. The wound was covered with a fluff Kerlix dressing. All sponge, needle, and instrument counts were correct at the end of the case. The patient tolerated the procedure well and was transferred to PACU in stable condition. SPECIMENS: Left gluteal/perianal abscess fluid for culture. DRAINS: A Ceres with half-inch Nu Gauze. COMPLICATIONS: None. DISPOSITION: To PACU, awake, alert, and stable. Following recovery, we will discharge the patient home with gradual advancement of diet and activity as tolerated with instructions for local wound care including daily dressing changes with packing. Prescriptions for antibiotics will be provided. Follow up will be with me next week for a wound check. My thanks to Dr. Molina for the consultation. JESSICA COOPER [id number] Doc#: [id number] CC: Phil Molina Eric [facility] Otheron 01-12-2019 Immature granulocytes (Bld) [#/Vol] NOT REPORTED 0 % [place] Hemoglobin A1Con 09-25-2017 Glucose mass conc 197 mg/dL [facility] Comment on above: Result Comment: The ADA and AACC recommend providing the estimated average glucose result to permit better patient understanding of their HBA1c result. Performed By: #### C DP, BMP, LIPR, GLYHGB ####[facility] [id number] [place], [place] [id number] Hemoglobin A1c/Hemoglobin.tot al mass fraction (Bld) 8.5 % High 4.0-6.0 [facility] Comment on above: Performed By: #### C DP, BMP, LIPR, GLYHGB ####[facility] [id number] [place], [place] [id number] Basic Metabolic Profon 09-22 (cont.) [facility] Comment on above: Result Comment: Aver age GFR for 60-69 years old: 85 mL/min/1.73sq mChronic Kidney Disease: <60 mL/min/1.73sq mKidney failure: <15 mL/min/1.73sq meGFR calculated using average adult body mass. Additional eGFR calculator available at:http://[email or web address]/multiple_crcl_2012.htm Performed By: #### C DP, BMP, LIPR, GLYHGB ####[address] [place] [address] Anion gap 3 molar conc 14 mmol/L Normal 9-17 [facility] Comment on above: Performed By: #### C DP, BMP, LIPR, GLYHGB ####[address] [place] [address] Calcium mass conc 9.2 mg/dL Normal 8.6-10.4 [facility] Comment on above: Performed By: #### C DP, BMP, LIPR, GLYHGB ####[address] [address] Chloride molar conc 99 mmol/L Normal 98-107 [facility] Comment on above: Performed By: #### C DP, BMP, LIPR, GLYHGB ####[address] [address] CO2 molar conc 25 mmol/L Normal 20-31 [facility] Comment on above: Performed By: #### C DP, BMP, LIPR, GLYHGB ####[address] [address] Creatinine mass conc 0.58 mg/dL Low 0.70-1.20 [facility] Comment on above: Performed By: #### C DP, BMP, LIPR, GLYHGB ####[address] [place] [address] GFR, Amer >60 Normal >60 [facility] Comment on above: Performed By: #### C DP, BMP, LIPR, GLYHGB ####[address] [address] GFR,non Amer >60 Normal >60 [facility] Comment on above: Performed By: #### C DP, BMP, LIPR, GLYHGB ####[facility] [address] [place] [address] Glucose mass conc 144 mg/dL High 70-99 [facility] Comment on above: Performed By: #### C DP, BMP, LIPR, GLYHGB ####[facility] [address] [place] [address] Potassium molar conc 3.8 mmol/L Normal 3.7-5.3 [facility] Comment on above: Performed By: #### C DP, BMP, LIPR, GLYHGB ####[address] [place] [address] Sodium molar conc 138 mmol/L Normal 135-144 [facility] Comment on above: Performed By: #### C DP, BMP, LIPR, GLYHGB ####[facility] [address] [place] [address] Urea nitrogen mass conc 12 mg/dL Normal 8-23 [facility] Comment on above: Performed By: #### C DP, BMP, LIPR, GLYHGB ####[address] [place] [address] BUN/CRE Ratio NOT REPORTED Normal 9-20 [facility] Comment on above: Performed By: #### C DP, BMP, LIPR, GLYHGB ####[facility] [address] [place] [address] Staging: NOT REPORTED Normal [facility] Comment on above: Performed By: #### C DP, BMP, LIPR, GLYHGB ####[address] [place] [address] CBC with Diffon 09-22-2017 Abs. Basophil 0.14 k/uL Normal 0.00-0.20 [facility] Comment on above: Performed By: #### C DP, BMP, LIPR, GLYHGB ####[address] [address] Abs.Imm.Granulocyt e 0.06 k/uL Normal 0.00-0.30 [facility] Comment on above: Performed By: #### C DP, BMP, LIPR, GLYHGB ####[place] [address] Abs.Neutrophil (Seg) 6.21 k/uL Normal 1.50-8.10 [facility] Comment on above: Performed By: #### C DP, BMP, LIPR, GLYHGB ####[address] [address] Basophils/100 WBC Auto (Bld) 1 % Normal 0-2 [facility] Comment on above: Performed By: #### C DP, BMP, LIPR, GLYHGB ####[address] [address] Eosinophils Auto #/vol (Bld) 0.70 10*3/uL High 0.00-0.44 [facility] Comment on above: Performed By: #### C DP, BMP, LIPR, GLYHGB ####[address] [address] Eosinophils/100 WBC Auto (Bld) 7 % High 1-4 [facility] Comment on above: Performed By: #### C DP, BMP, LIPR, GLYHGB ####[address] [address] Erythrocyte distribution width Auto Ratio (RBC) 13.9 % Normal 11.8-14.4 [facility] Comment on above: Performed By: #### C DP, BMP, LIPR, GLYHGB ####[address] [address] Hematocrit Auto Volume Fraction (Bld) 44.5 % Normal 40.7-50.3 [facility] Comment on above: Performed By: #### C DP, BMP, LIPR, GLYHGB ####[address] [address] Hemoglobin mass conc (Bld) 14.5 g/dL Normal 13.0-17.0 [facility] Comment on above: Performed By: #### C DP, BMP, LIPR, GLYHGB ####[address] [address] Immature granulocytes #/vol (Bld) 1 % High 0 [facility] Comment on above: Performed By: #### C DP, BMP, LIPR, GLYHGB ####[address] [address] Lymphocytes Auto #/vol (Bld) 2.80 10*3/uL Normal 1.10-3.70 [facility] Comment on above: Performed By: #### C DP, BMP, LIPR, GLYHGB ####[address] [address] Lymphocytes/100 WBC Auto (Bld) 26 % Normal 24-43 [facility] Comment on above: Performed By: #### C DP, BMP, LIPR, GLYHGB ####[address] [address] MCH Auto Entitic mass (RBC) 27.9 pg Normal 25.2-33.5 [facility] Comment on above: Performed By: #### C DP, BMP, LIPR, GLYHGB ####[address] [address] MCHC Auto mass conc (RBC) 32.6 g/dL Normal 28.4-34.8 [facility] Comment on above: Performed By: #### C DP, BMP, LIPR, GLYHGB ####[address] [address] MCV Auto Entitic volume (RBC) 85.7 fL Normal 82.6-102.9 [facility] Comment on above: Performed By: #### C DP, BMP, LIPR, GLYHGB ####[address] [address] Monocytes Auto #/vol (Bld) 0.94 10*3/uL Normal 0.10-1.20 [facility] Comment on above: Performed By: #### C DP, BMP, LIPR, GLYHGB ####[address] [address] Monocytes/100 WBC Auto (Bld) 9 % Normal 3-12 [facility] Comment on above: Performed By: #### C DP, BMP, LIPR, GLYHGB ####[address] [address] Neutrophil (Seg) 56 % Normal 36-65 [facility] Comment on above: Performed By: #### C DP, BMP, LIPR, GLYHGB ####[address] [address] NRBC Automated 0.0 per 100 WBC Normal 0.0 [facility] Comment on above: Performed By: #### C DP, BMP, LIPR, GLYHGB ####[address] [address] Platelet mean volume Auto Entitic volume (Bld) 8.8 fL Normal 8.1-13.5 [facility] Comment on above: Performed By: #### C DP, BMP, LIPR, GLYHGB ####[address] [address] Platelets Auto #/vol (Bld) 316 10*3/uL Normal 138-453 [facility] Comment on above: Performed By: #### C DP, BMP, LIPR, GLYHGB ####[address] [address] RBC Auto #/vol (Bld) 5.19 10*6/uL Normal 4.21-5.77 [facility] Comment on above: Performed By: #### C DP, BMP, LIPR, GLYHGB ####[address] [address] WBC Auto #/vol (Bld) 10.9 10*3/uL Normal 3.5-11.3 [facility] Comment on above: Performed By: #### C DP, BMP, LIPR, GLYHGB ####[address] [address] Auto Diff Performed NOT REPORTED Normal [facility] Comment on above: Performed By: #### C DP, BMP, LIPR, GLYHGB ####[address] [address] Platelets Auto #/vol (Bld) NOT REPORTED Normal [facility] Comment on above: Performed By: #### C DP, BMP, LIPR, GLYHGB ####[address] [address] RBC morphology finding Nom (Bld) NOT REPORTED Normal [facility] Comment on above: Performed By: #### C DP, BMP, LIPR, GLYHGB ####[address] [address] WBC Morphology NOT REPORTED Normal [facility] Comment on above: Performed By: #### C DP, BMP, LIPR, GLYHGB ####[address] [address] CTA HEAD W CONTRASTon 2017 CTA HEAD W CONTRAST EXAMINATION:CTA OF THE NECK; CTA OF THE HEAD WITH CONTRAST 09/22/2017 3:47 am; 09/22/20173:36 am:TECHNIQUE:CTA of the neck was performed with the administration of intravenouscontrast. Multiplanar reformatted images are provided for review. MIP imagesare provided for review. Stenosis of the internal carotid arteries measuredusing NASCET criteria. Dose modulation, iterative reconstruction, and/orweight based adjustment of the mA/kV was utilized to reduce the radiationdose to as low as reasonably achievable.; CTA of the head/brain was performedwith the administration of intravenous contrast. Multiplanar reformattedimages are provided for review. MIP images are provided for review. Dosemodulation, iterative reconstruction, and/or weight based adjustment of themA/kV was utilized to reduce the radiation dose to as low as reasonablyachievable.COMP ARISON:None.HISTORY:ORDER ING SYSTEM PROVIDED HISTORY: STROKEFINDINGS:CTA NECK:AORTIC ARCH/ARCH VESSELS: There is a normal branch pattern of the aorticarch. No significant stenosis is seen of the innominate artery or subclavianarteries.CAROTI D ARTERIES: The common carotid arteries are normal in appearancewithout evidence of a flow limiting stenosis. The internal carotid arteriesare normal in appearance without evidence of a flow limiting stenosis byNASCET criteria. No dissection or arterial injury is seen.VERTEBRAL ARTERIES: The vertebral arteries both arise from the subclavianarteries and are normal in caliber without evidence of flow limiting stenosisor dissection.SOFT TISSUES: The lung apices are clear. No cervical or superior mediastinallymphadenopath y. The visualized portion of the larynx and pharynx appearunremarkable. The parotid, submandibular and thyroid glands demonstrate noacute abnormality.BONES: The visualized osseous structures appear unremarkable.CTA HEAD:ANTERIOR CIRCULATION: The internal carotid arteries are normal in course andcaliber without focal stenosis. The anterior cerebral and middle cerebralarteries demonstrate no focal stenosis.POSTERIOR CIRCULATION: The posterior cerebral arteries demonstrate no focalstenosis. The vertebral and basilar arteries appear unremarkable.BRAIN: No mass effect or midline shift. No abnormal extra-axial fluidcollection. The lira-white differentiation appears grossly maintained.IMPRESSION: Unremarkable CTA of the head and neck.Interpreted by:MARY Duffyigned by:Luiz Mariano [id number]//[id number] result Normal [facility] CTA NECK W CONTRASTon 2017 CTA NECK W CONTRAST EXAMINATION:CTA OF THE NECK; CTA OF THE HEAD WITH CONTRAST 09/22/2017 3:47 am; 09/22/20173:36 am:TECHNIQUE:CTA of the neck was performed with the administration of intravenouscontrast. Multiplanar reformatted images are provided for review. MIP imagesare provided for review. Stenosis of the internal carotid arteries measuredusing NASCET criteria. Dose modulation, iterative reconstruction, and/orweight based adjustment of the mA/kV was utilized to reduce the radiationdose to as low as reasonably achievable.; CTA of the head/brain was performedwith the administration of intravenous contrast. Multiplanar reformattedimages are provided for review. MIP images are provided for review. Dosemodulation, iterative reconstruction, and/or weight based adjustment of themA/kV was utilized to reduce the radiation dose to as low as reasonablyachievable.COMP ARISON:None.HISTORY:ORDER ING SYSTEM PROVIDED HISTORY: STROKEFINDINGS:CTA NECK:AORTIC ARCH/ARCH VESSELS: There is a normal branch pattern of the aorticarch. No significant stenosis is seen of the innominate artery or subclavianarteries.CAROTI D ARTERIES: The common carotid arteries are normal in appearancewithout evidence of a flow limiting stenosis. The internal carotid arteriesare normal in appearance without evidence of a flow limiting stenosis byNASCET criteria. No dissection or arterial injury is seen.VERTEBRAL ARTERIES: The vertebral arteries both arise from the subclavianarteries and are normal in caliber without evidence of flow limiting stenosisor dissection.SOFT TISSUES: The lung apices are clear. No cervical or superior mediastinallymphadenopath y. The visualized portion of the larynx and pharynx appearunremarkable. The parotid, submandibular and thyroid glands demonstrate noacute abnormality.BONES: The visualized osseous structures appear unremarkable.CTA HEAD:ANTERIOR CIRCULATION: The internal carotid arteries are normal in course andcaliber without focal stenosis. The anterior cerebral and middle cerebralarteries demonstrate no focal stenosis.POSTERIOR CIRCULATION: The posterior cerebral arteries demonstrate no focalstenosis. The vertebral and basilar arteries appear unremarkable.BRAIN: No mass effect or midline shift. No abnormal extra-axial fluidcollection. The lira-white differentiation appears grossly maintained.IMPRESSION: Unremarkable CTA of the head and neck.Interpreted by:MARY Duffyigned by:Luiz Mariano MD//18Final result Normal [facility] Consulton 09-22-2017 HIM IP Note OR Oil Winterizer Normal [facility] HIM IP Note OR Oil Winterizer Normal [facility] Discharge Summaryon 09-23-19 18 HIM IP Note OR Oil Winterizer Normal [facility] ED Noteon 09-22-2017 HIM IP Note OR Oil Winterizer Normal [facility] HIM IP Note OR Oil Winterizer Normal [facility] ED Provider Noteon 8 HIM IP Note OR Oil Winterizer Normal [facility] History and Physicalon 09-22 HIM IP Note OR Oil Winterizer Normal [facility] Lipid Profileon 09-22-2017 Cholesterol in HDL mass conc 28 mg/dL Low >40 [facility] Comment on above: Result Comment: HDL Guidelines: <40 Undesirable 40-59 Borderline >59 Desirable Performed By: #### C DP, BMP, LIPR, GLYHGB ####[facility] [address] [place] [address] Cholesterol in LDL mass conc 79 mg/dL Normal 0-130 [facility] Comment on above: Result Comment: LDL Guidelines: <100 Desirable 100-129 Near to/above Desirable 130-159 Borderline >159 UndesirableDirect (measured) LDL and calculated LDL are not interchangeable tests. Performed By: #### C DP, BMP, LIPR, GLYHGB ####[facility] [address] [place] [address] Cholesterol mass conc 135 mg/dL Normal <200 [facility] Comment on above: Result Comment: Chol esterol Guidelines: <200 Desirable 200-240 Borderline >240 Undesirable Performed By: #### C DP, BMP, LIPR, GLYHGB ####[facility] [address] [place] [address] Cholesterol.total/ Cholesterol in HDL mass ratio 4.8 {ratio} Normal <5 [facility] Comment on above: Performed By: #### C DP, BMP, LIPR, GLYHGB ####[facility] [address] [place] [address] Triglyceride mass conc 140 mg/dL Normal <150 [facility] Comment on above: Result Comment: Trig lyceride Guidelines: <150 Desirable 150- 199 Borderline 200-499 High >499 Very high Based on AHA Guidelines for fasting triglyceride, November 2011. Performed By: #### C DP, BMP, LIPR, GLYHGB ####[facility] [address] [place] [address] Cholesterol in VLDL mass conc NOT REPORTED Normal -30 [facility] Comment on above: Performed By: #### C DP, BMP, LIPR, GLYHGB ####[facility] [address] [place] [address] MRI BRAIN WO CONTRASTon MRI BRAIN WO CONTRAST EXAMINATION:MRI OF THE BRAIN WITHOUT CONTRAST 09/22/2017 9:07 amTECHNIQUE:Multiplanar multisequence MRI of the brain was performed without theadministration of intravenous contrast.COMPARISON:None. HISTORY:ORDERING SYSTEM PROVIDED HISTORY: STROKEFINDINGS:INTRACRANI AL STRUCTURES/VENTRICLES: Ventricles sulci are normal for thepatient's age. There is mild spotty increased T2/FLAIR signal in theperiventricular and subcortical white matter bilaterally. No large confluentareas of abnormal increased T2/FLAIR signal are noted. Flow voids barpatent. There is no restricted diffusion signal. There is no hemorrhage.ORBITS: Radiographic proptosis is noted bilaterallySINUSES: Lobular heterogeneous signal in the right maxillary sinus is notedextending into the right nasal cavity. This is increased compared to an oldCT sinus. This may represent enlarging polyposis, however directvisualization is recommended.BONES/SOFT TISSUES: The bone marrow signal intensity appears normal. The softtissues demonstrate no acute abnormality.IMPRESSION: No findings diagnostic of an acute infarct at this timeMild small vessel ischemic changesSinonasal findings as describedInterpreted by:MARY Sanchezigned by:Francis Cristina MD09/22/17CC Recipients:Aneesh Queen MD - In Basket (authorizing provider)Final result Normal [facility] Progress Noteon 09-22-2017 HIM IP Note OR Oil Winterizer Normal [facility] HIM IP Note OR Oil Winterizer Normal [facility] HIP RIGHT 1 OR 2 VWS WITH PE LVISon 02-03-2017 HIP RIGHT 1 OR 2 VWS WITH PELVIS [facility] [address] [place] [address] P atient Name: KWABENA AKERS : 1950Sex: MAge: Race: WhiteMRN: [id number]. Location: 84Patient Status: OVisit #: [id number] Date: 02/03/2017 1:25:00 PMCompleted Date: 02/03/2017 01:36 PMRequesting Provider: ONEIL WILLIAMSON Attending Provider: ONEIL WILLIAMSON Report Copy To: Signs & Symptoms: Z47.1 Aftercare following joint replacement surgery X51Kyniits: AthenaComments: , , , Ordering Provider - ONEIL WILLIAMSON MD , Rendering Provider - ONEIL WILLIAMSON MD , Exam: HIP RIGHT 1 OR 2 VWS WITH PELVISAccession #: [id number] ======HIP RIGHT 1 OR 2 VWS WITH PELVIS 02/03/2017 1:36 PM EST SIGNS AND SYMPTOMS: Z47.1 Aftercare following joint replacement surgery I10 TECHNOLOGIST COMMENTS: right hip pain status post right citlaly 12-16-16, left citlaly 4 years ago check hardware QUESTION FOR THE RADIOLOGIST: , , , Ordering Provider yKle WILLIAMSON MD , Rendering Provider Kyle WILLIAMSON MD , PROTOCOL: AP(PA) and Lateral views were obtained. COMPARISON: December 28, 2016 FINDINGS: Soft tissues:Resolution of postoperative airNo acute findings, unchanged scattered enthesophytes and some limited heterotopic ossification Bones:Unchanged osteoporosis Joints:Bilateral total hip arthroplasties in satisfactory alignmentDegenerative changes lower spine and SI joints, unchanged IMPRESSION: Healing right total hip arthroplasty Electronically signed by:Keri Durand. Transcribed by: [email or web address], User Resident: Electronically Signed by: KERI DURAND @ 02/03/2017 01:[address] [facility] Comment on above: Order Comment: , , = ========= , Ordering Provider - ONEIL WILLIAMSON MD , Rendering Provider - ONEIL WILLIAMSON MD , C REACTIVE PROTEINon 01-04-2 017 C reactive protein (CRP) 10.5 mg/L High 0.0-7.0 [facility] Comment on above: Performed By: #### 4 6447 ####[facility] CBC COMPLETE BLOOD COUNTon 1 03-06-2016 Erythrocyte distribution width Auto Ratio (RBC) 14.8 % Normal 11.5-16.9 [facility] Comment on above: Performed By: #### 4 6447 ####[facility] Erythrocytes (RBC) 4.65 mill/mm3 Normal 4.30-5.90 [facility] Comment on above: Performed By: #### 4 6447 ####[facility] Hematocrit (HCT) 40.2 % Normal 39.0-55.0 [facility] Comment on above: Performed By: #### 4 6447 ####[facility] Hemoglobin mass conc (Bld) 12.9 g/dL Low 13.9-16.3 [facility] Comment on above: Performed By: #### 4 6447 ####[facility] MCH 27.7 pg Normal 24.0-32.0 [facility] Comment on above: Performed By: #### 4 6447 ####[facility] MCHC mass conc (RBC) 32.0 g/dL Normal 32.0-36.0 [facility] Comment on above: Performed By: #### 4 6447 ####[facility] MCV 86.6 fL Normal 80.0-100.0 [facility] Comment on above: Performed By: #### 4 6447 ####[facility] PLAT CNT 629 Thou/mm3 High 100-400 [facility] Comment on above: Performed By: #### 4 6460 ####[facility] WBC (Leukocytes) 10.4 Thou/mm3 High 4.0-10.0 [facility] Comment on above: Performed By: #### 4 6427 ####[facility] SEDIMENTATION RATEon 11-14-2 017 SED RATE 50 mm/hr High 0-10 [facility] Comment on above: Performed By: #### 4 6483 ####[facility] CBC W/DIFFon 12-28-2016 Basophils Auto #/vol (Bld) 0.8 % Normal 0.0-2.0 [facility] Comment on above: Performed By: #### 4 6447 ####[facility] [place] [address], [facility] Eosinophils/100 leukocytes 4.0 % Normal 0.0-5.0 [facility] Comment on above: Performed By: #### 4 6447 ####[facility] Erythrocyte distribution width Auto Ratio (RBC) 14.5 % Normal 11.5-16.9 [facility] Comment on above: Performed By: #### 4 6447 ####[facility] Erythrocytes (RBC) 4.34 mill/mm3 Normal 4.30-5.90 [facility] Comment on above: Performed By: #### 4 6447 ####[facility] Hematocrit (HCT) 37.5 % Low 39.0-55.0 [facility] Comment on above: Performed By: #### 4 6447 ####[facility] Hemoglobin mass conc (Bld) 12.3 g/dL Low 13.9-16.3 [facility] Comment on above: Performed By: #### 4 6498 ####[facility] [place] [address], [facility] Lymphocytes/100 leukocytes 17.8 % Low 20.0-40.0 [facility] Comment on above: Performed By: #### 4 6436 ####[facility] MCH 28.3 pg Normal 24.0-32.0 [facility] Comment on above: Performed By: #### 4 6447 ####[facility] MCHC mass conc (RBC) 32.7 g/dL Normal 32.0-36.0 [facility] Comment on above: Performed By: #### 4 6416 ####[facility] MCV 86.5 fL Normal 80.0-100.0 [facility] Comment on above: Performed By: #### 4 6469 ####[facility] METHOD Normal RBC Morphology Normal [facility] Comment on above: Performed By: #### 4 8018 ####[facility] MONOS 8.0 % Normal 2-8 [facility] Comment on above: Performed By: #### 4 6418 ####[facility] Neutrophils/100 leukocytes 69.4 % Normal 50-70 [facility] Comment on above: Performed By: #### 4 8941 ####[facility] [facility].[address] PLAT CNT 689 Thou/mm3 High 100-400 [facility] Comment on above: Performed By: #### 4 0834 ####[facility] WBC (Leukocytes) 12.6 Thou/mm3 High 4.0-10.0 The [facility] Comment on above: Performed By: #### 4 1620 ####[facility] HIP RIGHT 1 OR 2 VWS WITH PE LVISon 12-28-2016 HIP RIGHT 1 OR 2 VWS WITH PELVIS [facility] [address] [facility] [place] [address] P atient Name: KWABENA AKERS : 1950Sex: MAge: Race: WhiteMRN: [id number]. Location: 84Patient Status: Date: 12/28/2016 11:15:00 AMCompleted Date: 12/28/2016 11:17 AMRequesting Provider: ONEIL WILLIAMSON Attending Provider: Report Copy To: Signs & Symptoms: Z47.1 Aftercare following joint replacement surgery G24Plfprtt: AthenaComments: , , , Ordering Provider - ONEIL WILLIAMSON MD , Exam: HIP RIGHT 1 OR 2 VWS WITH PELVISAccession #: [id number] ======HIP RIGHT 1 OR 2 VWS WITH PELVIS 12/28/2016 11:17 AM EST SIGNS AND SYMPTOMS: Z47.1 Aftercare following joint replacement surgery I10 TECHNOLOGIST COMMENTS: follow up surgery on 12/15/16 QUESTION FOR THE RADIOLOGIST: , , , Ordering Provider - ONEIL WILLIAMSON MD , PROTOCOL: AP(PA) and Lateral views were obtained. COMPARISON: December 16, 2016 FINDINGS: Soft tissues:Mild edema Bones:Mild osteoporosis with usual senescent change Joints:Bilateral total hips in satisfactory alignmentRight-sided drain has been removed but some faint supratrochanteric air and peritrochanteric edema remains IMPRESSION: Right total hip as above Electronically signed by:Keri Durand. Transcribed by: [id number], User Resident: Electronically Signed by: KERI DURAND @ 12/28/2016 12:11 PM Normal [facility] Comment on above: Order Comment: , , = ========= , Ordering Provider - ONEIL WILLIAMSON MD , Discharge Summaryon 12-26-19 17 Discharge Summary MR#: [id number] [facility] Kwabena Akers Admitted: 12/16/2016 Discharged: 12/17/2016 Date of : 1950 Physician: Oneil Williamson M.D. DISCHARGE SUMMARYPRIMARY DIAGNOSIS: Right hip osteoarthritis.SECONDARY DIAGNOSES: Diabetes, hypertension.PROCEDURES PERFORMED AND TREATMENT RENDERED: On 12/16/2016, patientunderwent a right total hip arthroplasty. The patient's condition aftersurgery was stable. The patient was transferred to floor to see an OT. On12/17/2016, the patient was discharged home with instructions to follow upin clinic in [address] Williamson with prescriptions for Lovenox, forPercocet, for Colace.Electronically Signed by:Oneil Williamson M.D. 01/05/2017 08:32 P Oneil Williamson M.D...Date Dict: 12/24/2016/02:55 P/Amparo Zimmerman Trans: 12/25/2016 10:33 A/Ana Maria_JN:[id number] c: Phil Molina M.D. [address] [place] [address] , [address] [address] [place] [facility] Operative Reporton 7 Operative Report MR#: [id number] [facility] Name[facility] Kwabena Akers Room #: [id number] Discharge 12/17/2016 Date: Birthdate: 1950 OPERATIVE REPORTDATE OF SURGERY: 12/16/2016SURGEON: Oneil Williamson M.D.SURGEON: Oneil Williamson MD.ASSOCIATE PROFESSOR OF ECONOMICS: Dr. LoomisANESTHESIA: General anesthesia with fascia iliaca block anesthesia.ESTIMATED BLOOD LOSS: 500 mL.FLUIDS: Per Anesthesia note.COMPLICATIONS: None.SPECIMENS: None.PREOPERATIVE DIAGNOSIS: Right hip osteoarthritis.POSTOPERAT ALIZE DIAGNOSIS: Right hip osteoarthritis.PROCEDURE: Right total hip arthroplasty.COMPONENTS:1 . Biomet taper lock, size 18, lateral offset femoral stem.2. 50 G7 shell.3. 36 inner diameter polyethylene insert.4. 36 standard femoral head.5. 35 acetabular screw.INDICATION FOR PROCEDURE: A 66-year-old male who had a previous left totalhip arthroplasty now has osteoarthritis of the right hip. He has failednonoperative measures over the course of the last year or more. Idiscussed with him my recommendation for total hip arthroplasty at thistime.OPERATIVE COURSE: The patient was brought to the operating room, placedsupine on the operating table. General anesthesia was obtained. Thepatient was placed in left lateral decubitus position. Appropriate paddingwas placed with extra roll. The right lower extremity was then prepped anddraped sterilely. Time-out was completed. Preoperative antibiotics wereconfirmed and given.A curvilinear incision centered over the greater trochanter was utilized.I dissected down to the overlying IT band. The IT band was then incised.The trial of retraction placed for added exposure. The anterior third ofthe gluteus medius was identified and incised up the greater trochanterlooping around anteriorly in line with the anterior half of the vastuslateralis. I then dissected down to the minimus layer and also incisedthis as well. Then I cut down the capsule and did a partial capsulectomy.Fluid appeared to be normal, it was evacuated. There was a large amount ofcapsular release. This allowed for the hip to be little bit more mobile.Once I incised the inferior capsule, I then dislocated the hip.I then marked the neck cut made the cut with oscillating saw. Hohmannretractors used for protection anteriorly and posteriorly. The head wasremoved. I then sized a little bit of the calcar tissue. I then placedthe hip back in extension and placed anterior and inferior Hohmannretractors.I placed a superior Steinmann pin as well. I then excised the labrum allthe way around the acetabulum. I then removed a little bit of anosteophyte and then reamed sequentially up to the size 57. Size 57 had agood rim fit. I then checked it with the trial and then impacted the cupdown. This had good initial fit. I placed superior acetabular screwdrilling and placing.The liner was then placed in position and seated completely. I then flexedexternally rotated and abducted the hip.I then opened up the proximal femur and used a rongeur to open up thelateral aspect. I then started broaching size 4 up to a total size 16.Once I got the size 16, I then removed a little bit of the lateralcancellous bone. I then broached up to a total size 18 and size 18 hadgood fit. I then trialed this, noted that leg lengths were grossly equal.The stability was acceptable. I then re-dislocated the hip, removed thebroach and placed the real implant down. I then trialed multiple necklengths noted that the standard was the most appropriate. I placed thereal head and clean dry taper and relocated the hip and stability wasidentical. There is no neck and cup impingement with full externalrotation extension. Full flexion, internal rotation and mechanical blockabout 30 degrees. There was minimal shuck. The minimus was closed itselfwith #2 interrupted jmrrau-dz-pkyje suture. The medius to itself with arunning #5 fiber suture. The vastus lateralis with a running #2 Vicrylsuture. The IT band with #2 interrupted tavsfo-vq-pfpyl suture. Thesubcutaneous tissue over drain with a running 0-Vicryl suture. The dermiswith 2-0 Vicryl and Biosyn for the skin. Dermabond was applied. Steriledressing applied. At the conclusion of the case, all sponge, needle countscorrect. I was present for the critical portions of this case.Electronically Signed by:Oneil Williamson M.D. 01/05/2017 08:31 P Oneil Williamson M.D.Date Dict: 12/20/2016/09:46 A/Oneil Williamson M.D.Date Trans: 12/20/2016 01:09 P/[id number]:[id number] c: Phil Molina M.D. [address] [facility] , [place] [facility] [address] Normal [facility] BASIC METABOLIC PANELon 10-2 Calcium 8.4 mg/dL Low 8.6-10.3 [facility] Comment on above: Order Comment: No: D o not add to previous draw Performed By: #### 5 0103 ####[facility] [place] [address], [facility] Chloride 103 mmol/L Normal 98-107 [facility] Comment on above: Order Comment: No: D o not add to previous draw Performed By: #### 5 0103 ####[facility] [place] [address], [facility] CO2 24 mmol/L Normal 21-31 [facility] Comment on above: Order Comment: No: D o not add to previous draw Performed By: #### 5 0103 ####[facility] [facility].[address] Creatinine 0.72 mg/dL Normal 0.70-1.30 [facility] Comment on above: Order Comment: No: D o not add to previous draw Performed By: #### 5 0103 ####[place] [id number] [facility].[address] eGFR (black) mL/min/{1.73_m2} Normal >60 [facility] Comment on above: Order Comment: No: D o not add to previous draw Performed By: #### 5 0103 ####[facility] eGFR (non-black) mL/min/{1.73_m2} Normal >60 [facility] Comment on above: Order Comment: No: D o not add to previous draw Performed By: #### 5 0103 ####[facility] [place] [address], [facility] Glucose mass conc 191 mg/dL High 70-100 The [facility] Comment on above: Order Comment: No: D o not add to previous draw Performed By: #### 5 3 ####[facility] Potassium molar conc 3.9 mmol/L Normal 3.5-5.1 [facility] Comment on above: Order Comment: No: D o not add to previous draw Performed By: #### 5 3 ####[facility] Sodium 135 mmol/L Low 136-145 [facility] Comment on above: Order Comment: No: D o not add to previous draw Performed By: #### 5 3 ####[facility] Urea nitrogen 12 mg/dL Normal 7-25 The [facility] Comment on above: Order Comment: No: D o not add to previous draw Performed By: #### 5 3 ####[facility] [place] [address], [facility] CBC W/DIFFon 12-17-2016 Basophils Auto #/vol (Bld) 0.3 % Normal 0.0-2.0 [facility] Comment on above: Order Comment: No: D o not add to previous draw Performed By: #### 5 3 ####[facility] [place] [address], [facility] Eosinophils/100 leukocytes 1.0 % Normal 0.0-5.0 [facility] Comment on above: Order Comment: No: D o not add to previous draw Performed By: #### 5 0103 ####[facility] [facility] [place] [address], [facility] Erythrocyte distribution width Auto Ratio (RBC) 15.0 % Normal 11.5-16.9 [facility] Comment on above: Order Comment: No: D o not add to previous draw Performed By: #### 5 0103 ####[facility] [facility].[address] Erythrocytes (RBC) 4.01 mill/mm3 Low 4.30-5.90 [facility] Comment on above: Order Comment: No: D o not add to previous draw Performed By: #### 5 0103 ####[facility] [facility].[address] Hematocrit (HCT) 34.7 % Low 39.0-55.0 [facility] Comment on above: Order Comment: No: D o not add to previous draw Performed By: #### 5 0103 ####[facility] [facility].[address] Hemoglobin mass conc (Bld) 11.4 g/dL Low 13.9-16.3 [facility] Comment on above: Order Comment: No: D o not add to previous draw Performed By: #### 5 0103 ####[facility] [place] [address], [facility] Lymphocytes/100 leukocytes 12.8 % Low 20.0-40.0 [facility] Comment on above: Order Comment: No: D o not add to previous draw Performed By: #### 5 0103 ####[facility] [place] [address], [facility] MCH 28.3 pg Normal 24.0-32.0 [facility] Comment on above: Order Comment: No: D o not add to previous draw Performed By: #### 5 0103 ####[facility] MCHC mass conc (RBC) 32.8 g/dL Normal 32.0-36.0 [facility] Comment on above: Order Comment: No: D o not add to previous draw Performed By: #### 5 0103 ####[facility] MCV 86.5 fL Normal 80.0-100.0 [facility] Comment on above: Order Comment: No: D o not add to previous draw Performed By: #### 5 0103 ####[facility] METHOD Normal RBC Morphology Normal [facility] Comment on above: Order Comment: No: D o not add to previous draw Performed By: #### 5 0103 ####[facility] MONOS 10.4 % High 2-8 [facility] Comment on above: Order Comment: No: D o not add to previous draw Performed By: #### 5 0103 ####[facility] [place] [address], [facility] Neutrophils/100 leukocytes 75.5 % High 50-70 [facility] Comment on above: Order Comment: No: D o not add to previous draw Performed By: #### 5 0103 ####[facility] [place] [address], [facility] PLAT CNT 320 Thou/mm3 Normal 100-400 The [facility] Comment on above: Order Comment: No: D o not add to previous draw Performed By: #### 5 0103 ####[facility] [facility].[address] WBC (Leukocytes) 12.3 Thou/mm3 High 4.0-10.0 The [facility] Comment on above: Order Comment: No: D o not add to previous draw Performed By: #### 5 0103 ####[facility] [facility].[address] HEMOGLOBINon 12-17-2016 Hemoglobin mass conc (Bld) 12.5 g/dL Low 13.9-16.3 [facility] Comment on above: Order Comment: No: D o not add to previous draw Performed By: #### 5 0103 ####[address] POC GLUCOSE LABon 12-17-2016 Glucose mass conc 179 mg/dL High 70-100 The [facility] Comment on above: Performed By: #### 5 0103 ####[address] Glucose mass conc 183 mg/dL High 70-100 The [facility] Comment on above: Performed By: #### 5 0103 ####[address] PROTHROMBIN TIMEon 7 INR Coag RelTime (PPP) 1.15 {INR} Normal 0.91-1.16 [facility] Comment on above: Order Comment: No: D o not add to previous draw Result Comment: ACCC P RECOMMENDED INR FOR WARFARIN THERAPY CONDITION INRPROPHYLAXIS OF VENOUS THROMBOSIS 2-3(HIGH-RISK SURGERY)TREATMENT OF VENOUS THROMBOSIS 2-3TREATMENT OF PULMONARY EMBOLISM 2-3PREVENTION OF SYSTEMIC EMBOLISM: 2-3 ACUTE MYOCARDIAL INFARCTION TISSUE HEART VALVES VALVULAR HEART DISEASE ATRIAL FIBRILLATION RECURRENT SYSTEMIC EMBOLISMMECHANICAL HEART VALVE 2.5-3.5 FROM: ORAL ANTICOAGULANTS. MECHANISM OF ACTION, CLINICALEFFECTIVENESS, AND OPTIMAL THERAPEUTIC RANGE. [id number];108:231S-246S. Performed By: #### 5 0103 ####[facility] [place] [address], [facility] Prothrombin time (PT) Coag time (PPP) 14.8 s Normal 12.3-14.8 [facility] Comment on above: Order Comment: No: D o not add to previous draw Result Comment: ALL RESULTS MUST BE INTERPRETED WITH RESPECT TO BLOOD DRAWING ARTIFACTOR DILUTION ERROR OF ANTICOAGULANT AT THE TIME OF SAMPLING. Performed By: #### 5 0103 ####[facility] [place] [address], [facility] POC GLUCOSE LABon 12-16-2016 Glucose mass conc 391 mg/dL High 70-100 The [facility] Comment on above: Performed By: #### 5 0103 ####[facility] [facility] [place] [address], [facility] Glucose mass conc 160 mg/dL High 70-100 The [facility] Comment on above: Performed By: #### 5 0103 ####[facility] [facility] [place] [address], [facility] Glucose mass conc 141 mg/dL High 70-100 The [facility] Comment on above: Performed By: #### 8 5499 ####[facility] [place] [address], [place] PORTABLE HIP RIGHT 1 OR 2 VW S WITH PELVISon 12-16-2016 PORTABLE HIP RIGHT 1 OR 2 VWS WITH PELVIS [facility] [address]ut[address] [place] [address] P atient Name: KWABENA AKERS : 1950Sex: MAge: Race: WhiteMRN: [id number]. Location: OUTPPatient Status: OVisit #: [id number] Date: 12/16/2016 11:40:00 AMCompleted Date: 12/16/2016 12:02 PMRequesting Provider: ZACHERY LOOMIS Attending Provider: ONEIL WILLIAMSON Report Copy To: Signs & Symptoms: Pain ( specify Location)History: Patient history not availableComments: Hardware EvaluationExam: PORTABLE HIP RIGHT 1 OR 2 VWS WITH PELVISAccession #: [id number] ======PORTABLE HIP RIGHT 1 OR 2 VWS WITH PELVIS 12/16/2016 12:02 PM EDT SIGNS AND SYMPTOMS: Pain ( specify Location) TECHNOLOGIST COMMENTS: post op hardware evaluation QUESTION FOR THE RADIOLOGIST: Hardware Evaluation PROTOCOL: AP(PA) and Lateral views were obtained. COMPARISON: October 12, 2016. FINDINGS: Right-sided total hip arthroplasty has been performed. The components appear well seated, without evidence of fracture, loosening or subluxation. Soft tissue drains are noted lateral to the right hip. AP view the pelvis reveals an intact bony ring. Left-sided total hip arthroplasty is redemonstrated IMPRESSION: Satisfactory postop appearance to right total hip arthroplasty. Electronically signed by:Connor Pinedo. Transcribed by: [email or web address], User Resident: Electronically Signed by: CONNOR PINEDO @ 12/16/2016 01:09 PM Normal [facility] Comment on above: Order Comment: Hardw are Evaluation RBC'S 2 UNITSon 12-16-2016 CROSSMATCH INTERP 1 COMP Normal [facility] Comment on above: Performed By: #### 5 0103 ####[facility] [place] [address], [facility] CROSSMATCH INTERP 2 COMP Normal [facility] Comment on above: Performed By: #### 5 0103 ####[facility] [place] [address], [facility] PRODUCT CODE 1 E0336 Normal The [facility] Comment on above: Performed By: #### 5 0103 ####[facility] [place] [address], [facility] PRODUCT CODE 2 E0336 Normal The [facility] Comment on above: Performed By: #### 5 0103 ####[facility] [place] [address], [place] PRODUCT STATUS 1 RE Normal The [facility] Comment on above: Result Comment: Resu lt changed by IF on 12/19/2016 07:07. The previous value was XM. Performed By: #### 5 0103 ####[facility] [facility] [place] [address], [facility] PRODUCT STATUS 2 RE Normal The [facility] Comment on above: Result Comment: Resu lt changed by IF on 12/19/2016 07:07. The previous value was XM. Performed By: #### 5 0103 ####[facility] [place] [address], [place] UNIT ABO 1 A Normal [facility] Comment on above: Performed By: #### 5 0103 ####[facility] [place] [address], [place] UNIT ABO 2 A Normal [facility] Comment on above: Performed By: #### 5 0103 ####[facility] [facility].[address] UNIT ID 1 [id number] Normal The [facility] Comment on above: Performed By: #### 5 0103 ####[facility] [facility].[address] UNIT ID 2 [id number] Normal The [facility] Comment on above: Performed By: #### 5 0103 ####[facility] [facility].[address] UNIT RH 1 Positive Normal [facility] Comment on above: Performed By: #### 5 0103 ####[facility] [facility].[address] UNIT RH 2 Positive Normal [facility] Comment on above: Performed By: #### 5 0103 ####[facility] [facility].[address] APTTon 12-02-2016 aPTT 26.0 s Normal 25.0-35.0 [facility] Comment on above: Result Comment: ALL RESULTS MUST BE INTERPRETED WITH RESPECT TO BLOOD DRAWING ARTIFACTOR DILUTION ERROR OF ANTICOAGULANT AT THE TIME OF SAMPLING.THE APTT SHOULD NOT BE USED TO MONITOR UNFRACTIONATED HEPARIN THERAPY, THIS LABORATORY NO LONGER HAS AN ESTABLISHED THERAPEUTIC RANGE BASEDON THE APTT. IT IS RECOMMENDED THAT THE UFH - HEPARIN ASSAY (ANTI-XAACTIVITY) BE USED FOR THIS PURPOSE. Performed By: #### 5 6101, [id number] ####[facility] [facility].[address] BASIC METABOLIC PANELon 10-1 Calcium 9.7 mg/dL Normal 8.6-10.3 [facility] Comment on above: Performed By: #### 0 0071 ####[facility] [facility].[address] Chloride 101 mmol/L Normal 98-107 [facility] Comment on above: Performed By: #### 0 0071 ####[facility] [facility] [place] [address], [facility] CO2 23 mmol/L Normal 21-31 [facility] Comment on above: Performed By: #### 0 0071 ####[facility] [place] [address], [facility] Creatinine 0.75 mg/dL Normal 0.70-1.30 [facility] Comment on above: Performed By: #### 0 0071 ####[place] [address] [facility] [place] [address], [facility] eGFR (black) mL/min/{1.73_m2} Normal >60 The [facility] Comment on above: Performed By: #### 0 0071 ####[facility] [facility] [place] [address], [facility] eGFR (non-black) mL/min/{1.73_m2} Normal >60 Th [facility] Comment on above: Performed By: #### 0 0071 ####[place] [address] [facility] [place] [address], [facility] Glucose mass conc 173 mg/dL High 70-100 The [facility] Comment on above: Performed By: #### 0 0071 ####[facility] [place] [address], [facility] Potassium molar conc 4.0 mmol/L Normal 3.5-5.1 [facility] Comment on above: Performed By: #### 0 0071 ####[facility] [place] [address], [facility] Sodium 137 mmol/L Normal 136-145 [facility] Comment on above: Performed By: #### 0 0071 ####[facility] [facility].[address] Urea nitrogen 14 mg/dL Normal 7-25 [facility] Comment on above: Performed By: #### 0 0071 ####[place] [address] [facility].[address] CBC COMPLETE BLOOD COUNTon Erythrocyte distribution width Auto Ratio (RBC) 14.5 % Normal 11.5-16.9 [facility] Comment on above: Performed By: #### 5 0608 ####[place] [address] [facility].[address] Erythrocytes (RBC) 5.39 mill/mm3 Normal 4.30-5.90 [facility] Comment on above: Performed By: #### 5 0608 ####[address] Hematocrit (HCT) 46.4 % Normal 39.0-55.0 [facility] Comment on above: Performed By: #### 5 0608 ####[address] Hemoglobin mass conc (Bld) 15.3 g/dL Normal 13.9-16.3 [facility] Comment on above: Performed By: #### 5 0608 ####[address] MCH 28.4 pg Normal 24.0-32.0 [facility] Comment on above: Performed By: #### 5 0608 ####[place] [address] [facility].[address] MCHC mass conc (RBC) 33.0 g/dL Normal 32.0-36.0 [facility] Comment on above: Performed By: #### 5 0608 ####[address] [place] [address], [facility] MCV 86.1 fL Normal 80.0-100.0 [facility] Comment on above: Performed By: #### 5 0608 ####[facility] [facility].[address] PLAT CNT 414 Thou/mm3 High 100-400 [facility] Comment on above: Performed By: #### 5 0608 ####[facility] [facility].[address] WBC (Leukocytes) 10.0 Thou/mm3 Normal 4.0-10.0 [facility] Comment on above: Performed By: #### 5 0608 ####[facility] [facility].[address] PROTHROMBIN TIMEon 1012-201 7 INR Coag RelTime (PPP) 1.08 {INR} Normal 0.91-1.16 [facility] Comment on above: Result Comment: ACCC P RECOMMENDED INR FOR WARFARIN THERAPY CONDITION INRPROPHYLAXIS OF VENOUS THROMBOSIS 2-3(HIGH-RISK SURGERY)TREATMENT OF VENOUS THROMBOSIS 2-3TREATMENT OF PULMONARY EMBOLISM 2-3PREVENTION OF SYSTEMIC EMBOLISM: 2-3 ACUTE MYOCARDIAL INFARCTION TISSUE HEART VALVES VALVULAR HEART DISEASE ATRIAL FIBRILLATION RECURRENT SYSTEMIC EMBOLISMMECHANICAL HEART VALVE 2.5-3.5 FROM: ORAL ANTICOAGULANTS. MECHANISM OF ACTION, CLINICALEFFECTIVENESS, AND OPTIMAL THERAPEUTIC RANGE. [id number];108:231S-246S. Performed By: #### 5 6101, [address]24 ####[facility] [facility].[address] Prothrombin time (PT) Coag time (PPP) 14.0 s Normal 12.3-14.8 [facility] Comment on above: Result Comment: ALL RESULTS MUST BE INTERPRETED WITH RESPECT TO BLOOD DRAWING ARTIFACTOR DILUTION ERROR OF ANTICOAGULANT AT THE TIME OF SAMPLING. Performed By: #### 5 6101, [address]6880 ####[facility] TYPE AND CROSSMATCHon 2016 ABO INTERPRETATION A Normal The [facility] Comment on above: Performed By: #### 6 2594 ####[address] ANTIBODY SCREEN Negative Normal [facility] Comment on above: Performed By: #### 6 2594 ####[facility] RH INTERPRETATION Positive Normal The [facility] Comment on above: Performed By: #### 6 2594 ####[address] *MRSA/MSSA CULTUREon 017 *MRSA/MSSA CULTURE Clinical Report: (D) Specimen: NASAL SWAB Collected: 10/12/2016 12:17 Status: Final Last Updated: 10/13/2016 14:36 CULT RES (Final) No Methicillin Resistant Staphylococcus aureus Isolated ISO (Final) No Methicillin Sensitive Staphylococcus aureus Isolated Normal [facility] Comment on above: Performed By: #### 3 1302 ####[facility] [facility].[address] CBC W/DIFFon 10-12-2016 Basophils Auto #/vol (Bld) 0.6 % Normal 0.0-2.0 [facility] Comment on above: Performed By: #### 5 0103 ####[facility] [facility] [address], [facility] Eosinophils/100 leukocytes 5.6 % High 0.0-5.0 [facility] Comment on above: Performed By: #### 5 0103 ####[facility] [facility].[address] Erythrocyte distribution width Auto Ratio (RBC) 14.7 % Normal 11.5-16.9 [facility] Comment on above: Performed By: #### 5 0103 ####[facility] [place] [address], [facility] Erythrocytes (RBC) 5.59 mill/mm3 Normal 4.30-5.90 [facility] Comment on above: Performed By: #### 5 0103 ####[facility] [facility].[address] Hematocrit (HCT) 47.7 % Normal 39.0-55.0 [facility] Comment on above: Performed By: #### 5 0103 ####[facility] Hemoglobin mass conc (Bld) 15.9 g/dL Normal 13.9-16.3 [facility] Comment on above: Performed By: #### 5 0103 ####[facility] [place] [address], [facility] Lymphocytes/100 leukocytes 18.5 % Low 20.0-40.0 [facility] Comment on above: Performed By: #### 5 0103 ####[facility] MCH 28.4 pg Normal 24.0-32.0 [facility] Comment on above: Performed By: #### 5 3 ####[facility] [place] [address], [facility] MCHC mass conc (RBC) 33.3 g/dL Normal 32.0-36.0 The [facility] Comment on above: Performed By: #### 5 0103 ####[facility] MCV 85.4 fL Normal 80.0-100.0 [facility] Comment on above: Performed By: #### 5 0103 ####[facility] [facility] [place] [address], [facility] METHOD Normal [facility] Comment on above: Result Comment: Auto mated differential performedNormal RBC Morphology Performed By: #### 5 0103 ####[facility] [facility].[address] MONOS 7.8 % Normal 2-8 [facility] Comment on above: Performed By: #### 5 0103 ####[facility] [facility].[address] Neutrophils/100 leukocytes 67.5 % Normal 50-70 [facility] Comment on above: Performed By: #### 5 0103 ####[facility] [place] [address], [facility] PLAT CNT 399 Thou/mm3 Normal 100-400 The [facility] Comment on above: Performed By: #### 5 0103 ####[facility] [facility].[address] WBC (Leukocytes) 11.0 Thou/mm3 High 4.0-10.0 [facility] Comment on above: Performed By: #### 5 0103 ####[facility] [facility].[address] HEMOGLOBIN A1Con 10-12-2016 Glucose mass conc 180 mg/dL High 70-126 [facility] Comment on above: Performed By: #### 4 6473 ####[facility] [facility].[address] Hemoglobin A1c/Hemoglobin.tot al mass fraction (Bld) 7.9 % High 4.0-6.0 [facility] Comment on above: Performed By: #### 4 6447 ####[facility] HIP RIGHT 1 OR 2 VWS WITH PE LVISon 10-12-2016 HIP RIGHT 1 OR 2 VWS WITH PELVIS [facility] Jampnyonh[address] [place] [address] P atient Name: KWABENA AKERS : 1950Sex: MAge: Race: WhiteMRN: [id number]. Location: 84Patient Status: OVisit #: [id number] Date: 10/12/2016 10:45:00 AMCompleted Date: 10/12/2016 10:48 AMRequesting Provider: ONEIL WILLIAMSON Attending Provider: ONEIL WILLIAMSON Report Copy To: Signs & Symptoms: M16.11 Unilateral primary osteoarthritis, right hip I94Jdkxswe: AthenaComments: , , , Ordering Provider - ONEIL WILLIAMSON MD , Rendering Provider - ONEIL WILLIAMSON MD , Exam: HIP RIGHT 1 OR 2 VWS WITH PELVISAccession #: [id number] ======HIP RIGHT 1 OR 2 VWS WITH PELVIS 10/12/2016 10:48 AM EDT SIGNS AND SYMPTOMS: M16.11 Unilateral primary osteoarthritis, right hip I10 TECHNOLOGIST COMMENTS: patient complains of right hip pain history of left replacement 2 years ago QUESTION FOR THE RADIOLOGIST: , , , Ordering Provider Kyle WILLIAMSON MD , Rendering Provider - ONEIL WILLIAMSON MD , PROTOCOL: AP(PA) and Lateral views were obtained. COMPARISON: None FINDINGS: Pelvis with 2 views right hip: Pelvic inlet is symmetrical. Patient has a left total hip arthroplasty. SI joints are unremarkable. 2 views of the right hip shows mild joint narrowing superiorly with degenerative spurring along the lateral acetabulum. Spurring is seen medially and laterally off the femoral condyle. IMPRESSION: Degenerative change right hip, moderate. Electronically signed by:Geovanny Traylor. Transcribed by: [email or web address], User Resident: Electronically Signed by: GEOVANNY TRAYLOR @ 10/12/2016 11:55 AM Normal [facility] Comment on above: Order Comment: , , = ========= , Ordering Provider - ONEIL WILLIAMSON MD , Rendering Provider - ONEIL WILLIAMSON MD , Vital Signs Date Time Vital Sign Value Performing Clinician Chelly bhatt 01-17-2019 11:40-0500 Body Temperature 97.11 [degF] [address] 01-17-2019 11:40-0500 BP Diastolic 97 mm[Hg] [address] 01-17-2019 11:40-0500 BP Systolic 162 mm[Hg] [address] 01-17-2019 11:40-0500 Pulse (Heart Rate) 96 /min [address] 01-17-2019 11:40-0500 Respiratory Rate 20 /min [address] 01-15-2019 11:10-0500 BP Diastolic 81 mm[Hg] [address] 01-15-2019 11:10-0500 BP Systolic 164 mm[Hg] [address] 01-15-2019 10:45-0500 Body Temperature 98.1 [degF] [address] 01-15-2019 10:45-0500 Pulse (Heart Rate) 97 /min [address], [place] 01-15-2019 10:45-0500 Respiratory Rate 20 /min [address] [facility] [place] 01-14-2019 10:10-0500 Body Temperature 97.81 [degF] [address] [facility], [place] 01-14-2019 10:10-0500 BP Diastolic 60 mm[Hg] [address] , [place] 01-14-2019 10:10-0500 BP Systolic 165 mm[Hg] [address] , [place] 01-14-2019 10:10-0500 Pulse (Heart Rate) 92 /min [address], [place] 01-14-2019 10:10-0500 Pulse Oximetry 96 % [address] 01-14-2019 10:10-0500 Respiratory Rate 16 /min [address] [facility] 01-13-2019 10:50-0500 BP Diastolic 77 mm[Hg] [address] , [place] 01-13-2019 10:50-0500 BP Systolic 154 mm[Hg] [address] , [place] 01-13-2019 10:50-0500 Pulse (Heart Rate) 83 /min [address], [place] 01-13-2019 10:18-0500 Body Temperature 98.4 [degF] [address] [facility] 01-13-2019 10:18-0500 Pulse Oximetry 99 % [address] 01-13-2019 10:18-0500 Respiratory Rate 20 /min [address] [facility] [place] 01-12-2019 17:45-0500 BP Diastolic 59 mm[Hg] [facility] [place] [facility] [place] 01-12-2019 17:45-0500 BP Systolic 137 mm[Hg] [facility] [place] 01-12-2019 17:45-0500 Pulse (Heart Rate) 75 /min [facility] [place] 01-12-2019 17:45-0500 Pulse Oximetry 95 % [facility] [place] 01-12-2019 17:45-0500 Respiratory Rate 18 /min [facility], [place] 01-12-2019 17:18-0500 Body Temperature 97.59 [degF] Jessica Cooper [facility], [place] 01-12-2019 14:45-0500 BMI (Body Mass Index) 58.18 kg/m2 Jessica Ruff [facility], [place] 01-12-2019 14:45-0500 Body weight 178.72 kg Jessica Cooper [facility] , [place] 01-12-2019 14:45-0500 Height 175.3 cm [facility] , [place] Encounters Encounter Date Encounter Type Care Provider Facility Start: 03-31-2023 End: 04-03-2023 ambulatory MARISOL Ruff [facility] Start: 03-31-2023 End: 04-02-2023 Subsequent hospital visit by physician Marisol Carr MD Work Phone: [facility] Comment on above: Hyperlipidemia, unsp ecified hyperlipidemia type; Type 2 diabetes mellitus with hyperglycemia, with long-term current use of insulin (HCC); Essential hypertension Abnormal x-ray; Lung density on x-ray Start: 02-09-2023 End: 02-10-2023 ambulatory TAY Delano SHARDA Ruff [facility] Start: 01-26-2023 End: 01-27-2023 ambulatory MARISOL Ledesmay [facility] Start: 01-24-2023 End: 01-25-2023 ambulatory MARISOL Ledesmay [facility] Start: 01-20-2023 End: 01-21-2023 ambulatory MARISOL Ledesmay [facility] Start: 01-17-2023 End: 01-18-2023 ambulatory MARISOL Ledesmay [facility] Start: 01-12-2023 End: 01-13-2023 ambulatory MARISOL ALEIDA [facility] Start: 01-10-2023 End: 01-11-2023 ambulatory MARISOL [facility]esmay [facility] Start: 01-07-2023 End: 01-08-2023 ambulatory MARISOL Ruff [facility] Start: 01-04-2023 End: 01-05-2023 ambulatory MARISOL Ruff [facility] Start: 12-22-2022 End: 12-25-2022 ambulatory MARISOL Ruff [facility] Start: 10-27-2022 End: 10-28-2022 ambulatory MARISOL Ruff [facility] Start: 09-16-2022 End: 09-17-2022 ambulatory MARISOL Ruff [facility] Start: 04-29-2022 End: 04-30-2022 ambulatory PHIL Gaxiola [facility]OLINA [facility] Start: 04-29-2022 End: 04-29-2022 Subsequent hospital visit by physician Phil Molina MD Work Phone: [facility] Comment on above: Essential hypertensi on Start: 07-21-2021 End: 07-21-2021 Subsequent hospital visit by physician Phil Molina MD Work Phone: [facility] Comment on above: Left lower quadrant abdominal pain Start: 06-01-2021 End: 06-01-2021 Patient encounter procedure Phil Molina MD Work Phone: [facility] Start: 06-01-2021 End: 06-01-2021 Subsequent hospital visit by physician Phil Molina MD Work Phone: [facility] Comment on above: Encounter for prosta te cancer screening; Encounter for Medicare annual wellness exam; Type 2 diabetes mellitus without complication, without long-term current use of insulin (HCC) Start: 01-08-2020 End: 01-08-2020 Subsequent hospital visit by physician Phil Molina [facility] Comment on above: Encounter for prosta te cancer screening; Encounter for Medicare annual wellness exam; Type 2 diabetes mellitus without complication, without long-term current use of insulin (HCC) Start: 01-17-2019 End: 01-17-2019 Subsequent hospital visit by physician [facility] Treatment Rm 03 [facility] ([facility]) Start: 01-15-2019 End: 01-15-2019 Subsequent hospital visit by physician [facility] Rm 03 [facility] ([facility]) Start: 01-14-2019 End: 01-14-2019 Subsequent hospital visit by physician [facility] Treatment Rm 01 [facility] (MOB) Comment on above: Arrived Start: 01-13-2019 End: 01-13-2019 Subsequent hospital visit by physician [facility] Op Treatment 01 [facility] (MOB) Comment on above: Arrived Start: 01-12-2019 End: 01-12-2019 Patient encounter procedure JESSICA COOPER [facility] Start: 01-12-2019 End: 01-12-2019 Subsequent hospital visit by physician Jessica Cooper Work Phone: [facility] OR Comment on above: Gluteal abscess (Sue herber Dx) Start: 09-22-2017 End: 09-22-2017 Evaluation and management of inpatient PHIL MOLINA [facility] Start: 02-03-2017 End: 02-04-2017 Ambulatory ONEIL WILLIAMSON Facility:[facility] Start: 01-04-2017 End: 01-05-2017 Ambulatory ONEIL J GEING Facility:[facility] Start: 12-28-2016 End: 12-29-2016 Ambulatory ONEIL J GEHLING Facility:[facility] Start: 12-16-2016 End: 12-17-2016 Evaluation and management of inpatient ONEIL J GEHLING Facility:[facility] Start: 10-12-2016 End: 10-13-2016 Ambulatory ONEIL Sb GETERRELLING Facility:[facility] Procedures Date Procedure Procedure Detail Performing Clinician Start: 03-31-2023 Ct thorax w/contrast material Marisol Carr MD Work Phone: Start: 03-31-2023 Comprehensive metabo lic panel Marisol Carr MD Work Phone: Start: 03-31-2023 Lipid panel Marisol madden MD Work Phone: Start: 04-29-2022 Lipid panel Phil Molina MD Work Phone: Start: 04-29-2022 End: 04-29-2022 Comprehensive metabolic panel Phil Molina MD Work Phone: Start: 11-25-2021 Colonoscopy Phil Molina MD Work Phone: Start: 07-21-2021 Basic metabolic pane l calcium total Phil Molina MD Work Phone: Start: 06-01-2021 PSA screening Kristen Molina MD Work Phone: Comment on above: The Roseann ECLIA as say is used. Results obtained with different assay methods cannot be used interchangeably. Start: 06-01-2021 Comprehensive metabo lic panel Phil Molina MD Work Phone: Start: 06-01-2021 Lipid panel Phil Molina MD Work Phone: Start: 01-08-2020 [object Object] Deena Molina Comment on above: The Roseann ECLIA as say is used. Results obtained with different assay methods cannot be used interchangeably. Start: 01-08-2020 Urine albumin quantitative Phil Molina Work Phone: Start: 01-08-2020 Blood count complete auto&auto difrntl wbc Phil Molina Work Phone: Start: 01-08-2020 Comprehensive metabo lic panel Phil Molina Work Phone: Start: 01-08-2020 Lipid panel Phil Molina Work Phone: Start: 01-08-2020 PSA screening Kristen Molina Work Phone: Start: 01-12-2019 Gluc bld gluc mntr d ev cleared fda spec home use JESSICA COOPER Start: 01-12-2019 Blood count complete auto&auto difrntl wbc JESSICA COOPER Start: 01-12-2019 AMBULATE PATIENT JESSICA Amezcua PERNELL Start: 01-12-2019 DIET GENERAL JESSICA DAVALOS Start: 01-12-2019 ENCOURAGE DEEP BREAT ZACHARY AND COUGHING JESSICA COOPER Start: 01-12-2019 TOBACCO CESSATION EDUCATION JESSICA COOPER Start: 01-12-2019 WOUND CARE JESSICA ADVALOS Start: 01-12-2019 FULL CODE JESSICA DAVALOS Start: 01-12-2019 DISCHARGE PATIENT JESSICA JERICHO Start: 01-12-2019 Cul prsmptv pthgnc o rganism scrn w/colony estimj JESSICA GARCIAJOSE Start: 01-12-2019 INITIATE OXYGEN THER APY PROTOCOL JESSICABILL COOPER Start: 01-12-2019 MEASURE HEIGHT AND LENGTH JESSICA GARCIAJOSE Start: 01-12-2019 MEASURE WEIGHT JESSICA JOSE HORACE Start: 01-12-2019 NOTIFY PHYSICIAN (SPECIFY) JESSICA COOPER Start: 01-12-2019 NURSING COMMUNICATION Jose COOPER Start: 01-12-2019 PLACE INTERMITTENT PNEUMATIC COMPRESSION DEVICE JESSICA CLEVELANDSELVIN Start: 01-12-2019 VERIFY INFORMED CONSENT JESSICA GARCIAJOSE Start: 01-12-2019 VITAL SIGNS JESSICA GARCIALUISMain PERALTAAleisha Start: 01-12-2019 VOID PROFESSOR CRIMINAL JUSTICE TO OR JESSICABILL COOPER Start: 01-12-2019 Gluc bld gluc mntr d ev cleared fda spec home use Jessica Clevelandinealeisha Work Phone: Start: 01-12-2019 Blood count complete auto&auto difrntl wbc Jessica Clevelandinealeisha Work Phone: Start: 01-12-2019 Gluc bld gluc mntr d ev cleared fda spec home use Jessicabill Clevelandinen Work Phone: Start: 09-22-2017 DISCHARGE PATIENT YEHUDA MOLINA Start: 09-22-2017 TELEMETRY MONITORING TAPAN MOLINA Start: 09-22-2017 Mri brain brain stem w/o contrast material PHIL MOLINA Start: 09-22-2017 FULL CODE PHIL MOLINA Start: 09-22-2017 NOTIFY PHYSICIAN (SPECIFY) PHIL MOLINA Start: 09-22-2017 REASON FOR NO CHEMIC AL VTE PROPHYLAXIS PHIL MOLINA Start: 09-22-2017 VITAL SIGNS PHIL MOLINA Start: 09-22-2017 BEDREST WITH ROLY BRISCOEGES PHIL MOLINA Start: 09-22-2017 PLACE INTERMITTENT PNEUMATIC COMPRESSION DEVICE PHIL MOLINA Start: 09-22-2017 Basic metabolic pane l calcium total PHIL MOLINA Start: 09-22-2017 Blood count complete auto&auto difrntl wbc PHIL MOLINA Start: 09-22-2017 Hemoglobin glycosylated a1c PHIL MOLINA Start: 09-22-2017 Lipid panel PHIL MOLINA Start: 09-22-2017 Ct angiography head w/contrast/noncontrast PHIL MOLINA Start: 09-22-2017 Ct angiography neck w/contrast/noncontrast PHIL MOLINA Start: 09-22-2017 IP CONSULT TO HOSPITALIST PHIL MOLINA Start: 09-22-2017 DIET LOW FAT PHIL MOLINA Start: 09-22-2017 NURSING SWALLOW ASSESSMENT PHIL MOLINA Start: 09-22-2017 ORAL CARE PHIL MOLINA Start: 09-22-2017 OT EVAL AND TREAT YEHUDA MOLINA Start: 09-22-2017 PT EVAL AND TREAT YEHUDA MOLINA Start: 09-22-2017 PATIENT STATUS (FROM ED OR OR/PROCEDURAL) PHIL MOLINA Start: 09-22-2017 IP CONSULT TO STROKE TEAM PHIL MOLINA Start: 09-22-2017 IP CONSULT TO NEUROLOGY PHIL MOLINA Start: 12-16-2016 REPLACEMENT OF RIGHT HIP JOINT WITH SYNTH SUB, OPEN APPROACH ONEIL WILLIAMSON Start: 08-05-2014 Colonoscopy Phil Molina MD Work Phone: Plan of Treatment Date Care Activity Detail Author Start: 11-25-2026 Screening for malignant neoplasm of colon [employer] Start: 03-09-2026 Hepatitis C screen Hepatitis C screen [employer] [place] Comment on above: Postponed from 1950 (Unavailable) Start: 03-09-2026 Hepatitis C screening Hepatitis C screen [employer] Comment on above: Postponed from 1950 (Unavailable) Postponed from 06/03 (Unavailable) Start: 08-05-2024 Colon cancer screen colonoscopy Colon cancer screen colonoscopy [employer] [place] Start: 08-05-2024 Screening for malignant neoplasm of colon [employer] Start: 03-31-2024 GFR test (Diabetes, CKD 3-4, OR last GFR 15-59) GFR test (Diabetes, CKD 3-4, OR last GFR 15-59) [employer] Start: 03-31-2024 Lipid panel Lipids [employer] Start: 03-18-2024 Depression Monitoring Depression Monitoring [employer] Start: 02-10-2024 Hemoglobin A1c measurement A1C test (Diabetic or Prediabetic) [facility] Start: 10-28-2023 Urine screening for protein Diabetic Alb to Cr ratio (uACR) test [facility] Start: 05-04-2023 End: 05-04-2023 Patient encounter procedure [facility] Comment on above: emg rue Start: 04-30-2023 GFR test (Diabetes, CKD 3-4, OR last GFR 15-59) GFR test (Diabetes, CKD 3-4, OR last GFR 15-59) [facility] Start: 04-28-2023 End: 04-28-2023 Patient encounter procedure 04/28/2023 10:45 AM EST Office Visit [facility] [address] [place] [address] [address] [place], [place] [id number] Marisol Carr MD [address] [place] [address] [address] [place] [address] 3 [place] [facility] Comment on above: 3 [place] Start: 03-25-2023 Depression Monitoring Depression Monitoring [facility] Start: 03-25-2023 Hemoglobin A1c measurement A1C test (Diabetic or Prediabetic) [facility] Start: 01-17-2023 Annual Wellness Visit (Medicare) Annual Wellness Visit (Medicare) [facility] Start: 07-15-2022 End: 07-15-2022 Patient encounter procedure 07/15/2022 Office Visit Primary Care Marisol Carr MD [address] [place] [address] [address] [place] [address] [facility] Start: 06-01-2022 Creatinine measurement Creatinine monitoring [facility] Start: 06-01-2022 Lipid panel Lipids [facility] Start: 06-01-2022 Potassium monitoring Potassium monitoring [facility] Start: 06-01-2022 Prostate specific antigen measurement Prostate Specific Antigen (PSA) Screening or Monitoring [facility] Start: 05-26-2022 Annual Wellness Visit (AWV) Annual Wellness Visit (AWV) [facility] Start: 05-25-2022 Depression Monitoring Depression Monitoring [facility] Start: 10-06-2021 End: 10-06-2021 Patient encounter procedure 10/06/2021 Office Visit Gastroenterology Mateo Melanie Marcia [address] [facility] [place] [address] [facility] Start: 08-27-2021 End: 08-27-2021 Patient encounter procedure 08/27/2021 Office Visit Primary Care Phil Molina MD [address] [place] [address] [id number] [facility] Start: 08-24-2021 Hemoglobin A1c measurement A1C test (Diabetic or Prediabetic) [facility] Start: 08-15-2021 Diabetic foot examination Diabetic foot exam [facility] Start: 02-11-2021 COVID-19 Vaccine (4 - Booster for Moderna series) COVID-19 Vaccine (4 - Booster for Moderna series) [facility] Start: 01-07-2021 HbA1c (Bld) [Mass fraction] A1C test (Diabetic or Prediabetic) [facility] [place] Start: 01-07-2021 Lipid panel Lipid screen [facility] Start: 01-07-2021 Urine screening for protein [facility] Start: 04-08-2020 End: 04-08-2020 Office Visit 04/08/2020 Office Visit Family Medicine Phil Molina MD [address] [id number] Phil Molina MD Start: 04-14-2019 A1C test (Diabetic or Prediabetic) A1C test (Diabetic or Prediabetic) [facility] [employer] [place], [place] Start: 03-31-2019 [object Object] Diabetic foot exam [facility] [place] Start: 03-31-2019 Diabetic foot examination Diabetic foot exam [facility], [place] Start: 03-31-2019 Diabetic microalbuminuria test Diabetic microalbuminuria test [facility] [place] Start: 01-30-2019 End: 01-30-2019 Office Visit 01/30/2019 Office Visit General Surgery Jessica Cooper MD [address] [place] [address] [address] [place] [address] [phone] [facility] Start: 01-22-2019 End: 01-22-2019 Appointment 01/22/2019 Appointment Infusion Therapy [facility] Start: 01-21-2019 End: 01-21-2019 Appointment 01/21/2019 Appointment Infusion Therapy [facility] Start: 01-20-2019 End: 01-20-2019 Appointment 01/20/2019 Appointment Infusion Therapy [facility] Start: 01-19-2019 End: 01-19-2019 Appointment 01/19/2019 Appointment Infusion Therapy [facility] Start: 01-18-2019 End: 01-18-2019 Appointment 01/18/2019 Appointment Infusion Therapy [facility] Start: 01-17-2019 End: 01-17-2019 Appointment 01/17/2019 Appointment Infusion Therapy [facility] Start: 01-16-2019 End: 01-16-2019 Office Visit 01/16/2019 Office Visit General Surgery Jessica Cooper MD [address] [facility] [address] [place] [address] [phone] [facility] Start: 01-14-2019 End: 01-14-2019 Appointment 01/14/2019 Appointment Infusion Therapy [facility] Start: 11-23-2018 Pneumococcal 65+ years Vaccine (2 of 2 - PPSV23) Pneumococcal 65+ years Vaccine (2 of 2 - PPSV23) [place], [place] Start: 10-22-2018 Influenza vaccination Flu vaccine (#1) [place] Start: 09-22-2018 Creatinine measurement Creatinine monitoring [place], [place] Start: 09-22-2018 Creatinine monitoring Creatinine monitoring [place], [place] Start: 09-22-2018 Lipid panel Lipid screen [place], [place] Start: 09-22-2018 Lipid screen Lipid screen [place] Start: 09-22-2018 Potassium monitoring Potassium monitoring [place] Start: 07-19-2018 Annual Wellness Visit (AWV) Annual Wellness Visit (AWV) [place] Start: 02-05-2016 Diabetic retinal exam Diabetic retinal exam [facility] Start: 02-05-2016 Glaucoma screening Diabetic retinal exam [facility] Start: 2012 Respiratory Syncytial Virus (RSV) or age 60 yrs+ (1 - 1-dose 60+ series) Respiratory Syncytial Virus (RSV) or age 60 yrs+ (1 - 1-dose 60+ series) [facility] Start: 2002 Shingles Vaccine (1 of 2) Shingles Vaccine (1 of 2) [facility] Start: 1997 Screening for malignant neoplasm of colon [facility] Start: 06-04-1971 DTaP/Tdap/Td vaccine (1 - Tdap) DTaP/Tdap/Td vaccine (1 - Tdap) [facility] Start: 06-04-1963 DTaP/Tdap/Td vaccine (1 - Tdap) DTaP/Tdap/Td vaccine (1 - Tdap) [place], [place] [employer] [place] Comment on above: ONE TIME for 1 Occurrences starting 12/23 End: 01-12-2019 Blood glucose - POCT Blood glucose - POCT Point of Care Testing Routine One Time for 1 Occurrences starting 01/12/2019 until 01/12/2019 [place] Comment on above: One Time for 1 Occurrences starting 12/23 until 01/12/2019 Initiate Oxygen Ther apy Protocol Initiate Oxygen Therapy Protocol Respiratory Care Routine Daily until discontinued starting 01/12/2019 [place], [place] Comment on above: Daily until discontinued starting 2018 Immunizations Immunization Date Immunization Notes Care Provider Fa [facility] 11-27-2021 Influenza, FLUAD, (a ge 65 y+), Adjuvanted, 0.5mL Phil Molina MD Work Phone: [facility] Work Phone: 11-20-2020 Influenza, Quadv, adjuvanted, 65 yrs +, IM, PF (Fluad) Phil Molina MD Work Phone: [facility] 05-14-2020 COVID-19, Moderna, Primary or Immunocompromised, PF, 100mcg/0.5mL Phil Molina MD Work Phone: [facility] Work Phone: 04-16-2020 COVID-19, Moderna, Primary or Immunocompromised, PF, 100mcg/0.5mL Phil Molina MD Work Phone: [facility] 01-08-2020 pneumococcal polysaccharide vaccine, 23 valent [facility] [place] 11-19-2019 Influenza, Quadv, adjuvanted, 65 yrs +, IM, PF (Fluad) [facility] 02-22-2019 influenza virus vacc ine, unspecified formulation [facility] , [place] 02-22-2019 influenza, injectabl e, quadrivalent, contains preservative [facility], [place] 11-23-2017 pneumococcal conjuga te vaccine, [address] [facility], [place] 11-23-2017 Seasonal trivalent influenza vaccine, adjuvanted, preservative free [facility], [place] 12-17-2016 influenza virus vacc ine, unspecified formulation [facility] 12-08-2015 Influenza Vaccine, unspecified formulation [facility] , [place] 12-09-2014 influenza virus vacc ine, unspecified formulation [facility] [place] 10-18-2013 influenza virus vacc ine, unspecified formulation [facility] 12-11-2012 influenza virus vacc ine, unspecified formulation [facility] [place] 03-13-2012 pneumococcal polysaccharide vaccine, [address] [facility], [place] 03-03-2010 influenza virus vacc ine, whole virus [facility] Payers Date Payer Category Payer Unknown [id number] 2017 Medicare [id number] 2017 Medicare MEDICARE MEDICAR E PART A AND B xxxxxxxxxxx 2017-Present [phone] [place] [address] xxxxxxxxxxx [id number] 2017 Unknown [employer]IC[employer] SUPP xxxxxx-xx 2017-Present [phone] ATTN INDIVIDUAL CLAIMS [id number] [employer] [address] xxxxxx-xx [id number] 2017 Unknown [id number] 2014 Medicare [id number] 1950 Unknown [id number] 1952 Unknown [id number] 1952 Unknown [id number] 1952 Unknown [id number] 1952 Unknown [id number] 1952 Unknown [id number] 1952 Unknown [id number] 1952 Unknown [id number] 1952 Unknown [id number] 1952 Unknown [id number] 1952 Unknown [id number] 1952 Unknown [id number] 1952 Unknown [id number] 1952 Unknown [id number] 1952 Unknown [id number] 1952 Unknown [id number] Unknown [id number] Social History Date Type Detail Facility Start: 01-12-2019 End: 10-06-2021 Tobacco smoking status NHIS Former smoker [facility] Start: 02-21-1959 End: 02-21-1979 History of tobacco use Current smoker [place], [place] Start: 02-21-1959 End: 02-21-1979 History of tobacco use Cigarette Smoker [place] Start: 01-12-2019 End: 03-25-2022 Cigarettes smoked current (pack per day) - Reported [place] Start: 01-12-2019 End: 03-18-2023 Alcohol intake Current non-drinker of alcohol (finding) [place] Start: 03-25-2011 Alcohol Comment rare [place], [place] Start: 1950 Sex Assigned At Not on file [place] Start: 01-08-2020 End: 10-06-2021 Tobacco use and exposure Never used [place] Start: 05-25-2021 End: 03-25-2022 [facility] Start: 05-25-2021 History SDOH Physica l Activity DPW [facility]: Start: 08-15-2020 End: 03-25-2022 History SDOH Financial [facility]: Start: 08-15-2020 End: 03-25-2022 History SDOH Transport Med 2 [employer] Work Phone: Start: 05-25-2021 End: 03-25-2022 Alcohol Use Disorder Identification Test - Consumption [AUDIT-C] [employer] How often to you hav e a drink containing alcohol? Never [employer] Average Number of Drinks Not on file [employer] (I/We) worried wheth er (my/our) food would run out before (I/we) got money to buy more. Never true [employer] At any time in the p ast 12 months, were you homeless or living in fpc [including now]? No [employer] Medical Equipment Procedure Code Equipment Code Equipment Origin al Text Equipment Identifier Dates 1 strip by Other route 2 times daily [id number] Start: 04-03-2018 1 each by In Vit ro route 2 times daily. As needed. [id number] each by Does n ot apply route 2 times daily [id number] Start: 04-03-2018 1 strip by Other route 2 times daily [id number] Start: 06-13-2020 1 strip by Other route 2 times daily [id number] Start: 07-02-2021 Use needle to in ject Levemir in to the skin every night. [id number] Start: 06-25-2021 1 strip by Other route 2 times daily [id number] Start: 08-26-2022 Use needle to in ject Levemir in to the skin every night. [id number] Start: 11-12-2022 1 each by Does n ot apply route daily [id number] Start: 01-20-2023 Goals Date Patient Goal Desired Activity /State Comment on above: I will try to decrea se the high sugar foods in my diet. Barriers: lack of motivation Plan for overcoming my barriers: Patient will participate in care coordination. Patient will review diet with cranberry grower. Confidence: 07/31 Anticipated Goal Completion Date: 02/21/2020 Comment on above: Formatting of this n ote might be different from the original. I will take my medication as directed. I will notify my provider of any problems with medications, like adverse effects or side effects. 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 I will notify my provider for advice before I stop taking any of my medication. Barriers: financial Plan for overcoming my barriers: Patient will apply for patient assistance as needed. Confidence: 8 Anticipated Goal Completion Date: 08/20/2020 Evaluation note Note Date & Type Note Facility Evaluation note Diagnosis Encounter for prostate cancer screening Special screening for malignant neoplasm of prostate Encounter for Medicare annual wellness exam Routine general medical examination at a health care facility Type 2 diabetes mellitus without complication, without long-term current use of insulin (HCC) documented in this encounter [employer] Phone: Evaluation note Note Date & Type Note Facility Evaluation note Diagnosis Left lower quadrant abdominal pain documented in this encounter [facility] [employer] Phone: Evaluation note Note Date & Type Note Facility Evaluation note Diagnosis Essential hypertension Unspecified essential hypertension documented in this encounter [facility] [employer] Phone: Evaluation note Note Date & Type Note Facility Evaluation note Diagnosis Hyperlipidemia, unspecified hyperlipidemia type Type 2 diabetes mellitus with hyperglycemia, with long-term current use of insulin (HCC) Essential hypertension Unspecified essential hypertension documented in this encounter [employer] Evaluation note Note Date & Type Note Facility Evaluation note Diagnosis Abnormal x-ray Other nonspecific (abnormal) findings on radiological and other examinations of body structure Lung density on x-ray Other diseases of lung, not elsewhere classified documented in this encounter [employer] Summary Purpose Family History No Family History Records FoundNo Family History Records FoundNo Family History Records FoundNo Family History Records Found Advance Directives No Advanced Directives Records FoundDocuments on File Type Date Recorded 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 Advance Directives and Living Will Power of Passenger Tire Builder Latest Code Status on File Code Status Date Activated Date Inactivated Comments Full Code 01/12/2019 4:48 PM Full Code 01/12/2019 4:11 PM 01/12/2019 4:48 PM Full Code 09/22/2017 6:50 AM 09/22/2017 3:18 PM Full Code 09/22/2017 5:54 AM 09/22/2017 6:50 AM Full Code 09/13/2016 7:35 AM 09/15/2016 6:35 PM Documents on File Type Date Recorded 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 Advance Directives and Living Will Power of Passenger Tire Builder Latest Code Status on File Code Status Date Activated Date Inactivated Comments Full Code 01/12/2019 4:48 PM 01/12/2019 8:21 PM Full Code 01/12/2019 4:11 PM 01/12/2019 4:48 PM Full Code 09/22/2017 6:50 AM 09/22/2017 3:18 PM Full Code 09/22/2017 5:54 AM 09/22/2017 6:50 AM Full Code 09/13/2016 7:35 AM 09/15/2016 6:35 PM Documents on File Type Date Recorded 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 ACP-Advance Directive ACP-Power of Passenger Tire Builder Healthcare Agents on File Name Relationship Healthcare Agent Relationshi p Communication Stormy Akers Spouse Primary Decision Bryant ker Healthcare Agents on File Name Relationship Healthcare Agent Relationshi p Communication Stormygabriele Akers Spouse Primary Decision Bryant ker Healthcare Agents on File Name Relationship Healthcare Agent Relationshi p Communication Stormymarcio Akers Spouse Primary Decision Bryant ker Latest Code Status on File Code Status Date Activated Date Inactivated Comments Full Code 01/12/2019 4:48 PM 01/12/2019 8:21 PM Code Status History Code Status Date Activated Date Inactivated Comments Full Code 01/12/2019 4:11 PM 01/12/2019 4:48 PM Full Code 09/22/2017 6:50 AM 09/22/2017 3:18 PM Full Code 09/22/2017 5:54 AM 09/22/2017 6:50 AM Full Code 09/13/2016 7:35 AM 09/15/2016 6:35 PM Healthcare Agents on File Name Relationship Healthcare Agent Relationshi p Communication Stormy Akers Spouse Primary Decision Bryant ker Latest Code Status on File Code Status Date Activated Date Inactivated Comments Full Code 01/12/2019 4:48 PM 01/12/2019 8:21 PM Code Status History Code Status Date Activated Date Inactivated Comments Full Code 01/12/2019 4:11 PM 01/12/2019 4:48 PM Full Code 09/22/2017 6:50 AM 09/22/2017 3:18 PM Full Code 09/22/2017 5:54 AM 09/22/2017 6:50 AM Full Code 09/13/2016 7:35 AM 09/15/2016 6:35 PM Healthcare Agents on File Name Relationship Healthcare Agent Mirname p Communication Stormy Akers Spouse Primary Decision Bryant pascual Discharge Instructions * Instructions* Nuvia Gutierres RN - 01/12/2019 Return to [facility] ED daily at 10 am for dressing change: Remove old dressing, bacitracin ointment, nu-gauze, then fluff outer dressing. Leave sutured alejo drain in place. Take bag of dressing supplies with you to the ED when you go. May change outer dressing at home if it becomes saturated before next dressing change. Follow up with Dr. Cooper in [facility] on Tuesday. Call Tuesday to make appointment [phone]. documented in this encounter* Discharge Instr - JESSICA* Ava Enriquez RN - 01/13/2019 10:00 AM EST Continuity of Care Form Patient Name: Kwabena Akers : 1950 Admit date: 01/13/2019 Discharge date: Code Status Order: Prior Advance Directives: Admitting Physician: No admitting provider for patient encounter. PCP: Phil Molina MD Discharging Nurse: Discharging Hospital Unit/Room#: No information available for this encounter. Discharging Unit Phone Number: Emergency Contact: Extended Emergency Contact Information Primary Emergency Contact: Stormy Akers Address: [address] [place] [address] Relation: Spouse Past Surgical History: Past Surgical History: Procedure Laterality Date APPENDECTOMY CARPAL TUNNEL RELEASE CIRCUMCISION N/A 03/26/2011 COLONOSCOPY 08/05/14 -polyp HEMORRHOID SURGERY HIP ARTHROPLASTY Left 05/21/2013 HIP SURGERY Left hip replacement JOINT REPLACEMENT Bilateral hips OTHER SURGICAL HISTORY 03/26/2011 Dorsal slit VASECTOMY Immunization History: Immunization History Administered Date(s) Administered Influenza Vaccine, unspecified formulation 12/08/2015 Influenza Virus Vaccine 12/11/2012, 10/18/2013, 12/09/2014, 12/17/2016 Influenza Whole 03/03/2010 Influenza, Triv, inactivated, subunit, adjuvanted, IM (Fluad 65 yrs and older) 11/23/2017 Pneumococcal Conjugate 13-valent ([id number]) 11/23/2017 Pneumococcal Polysaccharide ([id number]) 03/13/2012 Active Problems: Patient Active Problem List Diagnosis Code Essential hypertension I10 Type 2 diabetes mellitus without complication, without long-term current use of insulin ([facility]) E11.9 Hyperlipidemia E78.5 Acute pain of right hip M25.551 Primary osteoarthritis of right hip M16.11 Osteoarthritis of knee M17.10 Degenerative arthritis of hip M16.9 Depression, major, in remission ([facility]) F32.5 Numbness R20.0 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 Facial droop R29.810 Diabetes mellitus due to underlying condition with hyperglycemia, without long- term current use of insulin ([facility]) E08.65 Morbid obesity with BMI of 50.0-59.9, adult ([facility]) E66.01, Z68.43 Gluteal abscess L02.31 Isolation/Infection: Isolation No Isolation Patient Infection Status None to display Nurse Assessment: Last Vital Signs: BP (!) 154/77 Pulse 83 Temp 98.4 F (36.9 C) (Tympanic) Resp 20 SpO2 99% Last documented pain score (0-10 scale): Last Weight: Wt Readings from Last 1 Encounters: 01/12/19 (!) 394 lb (178.7 kg) Mental Status: {IP PT MENTAL STATUS:06872} IV Access: { JESSICA IV ACCESS:972077977} Nursing Mobility/ADLs: Walking {CHP DME ADLs:844156019} Transfer {CHP DME ADLs:785252763} Bathing {CHP DME ADLs:834643567} Dressing {CHP DME ADLs:994396111} Toileting {CHP DME ADLs:974325196} Feeding {CHP DME ADLs:716918204} Washcloth Folder {P DME ADLs:815272402} Med Delivery { JESSICA MED Delivery:454332346} Wound Care Documentation and Therapy: Elimination: Continence: Bowel: {YES / NO:} Bladder: {YES / NO:} Urinary Catheter: {Urinary Catheter:183559760} Colostomy/Ileostomy/Ileal Conduit: {YES / NO:11251} Date of Last BM: No intake or output data in the 24 hours ending 01/13/19 1418 No intake/output data recorded. Safety Concerns: { JESSICA Safety Concerns:409167889} Impairments/Disabilities: { JESSICA Impairments/Disabilities:390050731} Nutrition Therapy: Current Nutrition Therapy: { JESSICA Diet List:704637655} Routes of Feeding: {CHP DME Other Feedings:376659869} Liquids: {Dietary Clerk liquid thickness:43165} Daily Fluid Restriction: {CHP DME Yes amt example:732903245} Last Modified Barium Swallow with Video (Video Swallowing Test): {Done Not Done Date:224186177} Treatments at the Time of Hospital Discharge: Respiratory Treatments: Oxygen Therapy: {Therapy; copd oxygen:91201} Ventilator: { CC Vent List:607727180} Rehab Therapies: {THERAPEUTIC INTERVENTION:4164077311} Weight Bearing Status/Restrictions: {[facility] Weight Bearin} Other Medical Equipment (for information only, NOT a DME order): {EQUIPMENT:426078804} Other Treatments: Patient's personal belongings (please select all that are sent with patient): {[facility] DME Belongings:615226382} RN SIGNATURE: {Esignature:045690962} CASE MANAGEMENT/SOCIAL WORK SECTION Inpatient Status Date: Readmission Risk Assessment Score: Readmission Risk Risk of Unplanned Readmission: 0 Discharging to Facility/ Agency Name: Address: Phone: Fax: Dialysis Facility (if applicable) Name: Address: Dialysis Schedule: Phone: Fax: Facility Service Associate/Foreclosure Paralegal signature: {Esignature:817552898} PHYSICIAN SECTION Prognosis: {Prognosis:6282952155} Condition at Discharge: { Patient Condition:481160011} Rehab Potential (if transferring to Rehab): {Prognosis:9973362438} Recommended Labs or Other Treatments After Discharge: Physician Certification: I certify the above information and transfer of Kwabena Akers is necessary for the continuing treatment of the diagnosis listed and that he requires {Admit to Appropriate Level of Care:64340} for {GREATER/LESS:063037915} 30 days. Update Admission H&P: {CHP DME Changes in HandP:731157171} PHYSICIAN SIGNATURE: {Esignature:744510694} * Additional Instructions* Ava Enriquez RN - 01/13/2019 Verbally reviewed discharge instructions for care and follow up. Previous print out of these instructions were given with prior treatment. Pt verbalized understanding of instructions given verbally. documented in this encounter* Discharge Instr - JESSICA* Ava Enriquez RN - 01/14/2019 10:00 AM EST Continuity of Care Form Patient Name: Kwabena Akers : 1950 Admit date: 01/14/2019 Discharge date: Code Status Order: Prior Advance Directives: Admitting Physician: No admitting provider for patient encounter. PCP: Phil Molina MD Discharging Nurse: Discharging Hospital Unit/Room#: No information available for this encounter. Discharging Unit Phone Number: Emergency Contact: Extended Emergency Contact Information Primary Emergency Contact: Stormy Akers Address: [address] [place] [id number] Relation: Spouse Past Surgical History: Past Surgical History: Procedure Laterality Date APPENDECTOMY CARPAL TUNNEL RELEASE CIRCUMCISION N/A 03/26/2011 COLONOSCOPY 08/05/14 -polyp HEMORRHOID SURGERY HIP ARTHROPLASTY Left 05/21/2013 HIP SURGERY Left hip replacement JOINT REPLACEMENT Bilateral hips OTHER SURGICAL HISTORY 03/26/2011 Dorsal slit VASECTOMY Immunization History: Immunization History Administered Date(s) Administered Influenza Vaccine, unspecified formulation 12/08/2015 Influenza Virus Vaccine 12/11/2012, 10/18/2013, 12/09/2014, 12/17/2016 Influenza Whole 03/03/2010 Influenza, Triv, inactivated, subunit, adjuvanted, IM (Fluad 65 yrs and older) 11/23/2017 Pneumococcal Conjugate 13-valent (Chxovsn11) 11/23/2017 Pneumococcal Polysaccharide (Fpshytsjq86) 03/13/2012 Active Problems: Patient Active Problem List Diagnosis Code Essential hypertension I10 Type 2 diabetes mellitus without complication, without long-term current use of insulin ([facility]) E11.9 Hyperlipidemia E78.5 Acute pain of right hip M25.551 Primary osteoarthritis of right hip M16.11 Osteoarthritis of knee M17.10 Degenerative arthritis of hip M16.9 Depression, major, in remission ([facility]) F32.5 Numbness R20.0 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 Facial droop R29.810 Diabetes mellitus due to underlying condition with hyperglycemia, without long- term current use of insulin ([facility]) E08.65 Morbid obesity with BMI of 50.0-59.9, adult ([facility]) E66.01, Z68.43 Gluteal abscess L02.31 Isolation/Infection: Isolation No Isolation Patient Infection Status None to display Nurse Assessment: Last Vital Signs: BP (!) 165/60 Pulse 92 Temp 97.8 F (36.6 C) (Oral) Resp 16 SpO2 96% Last documented pain score (0-10 scale): Last Weight: Wt Readings from Last 1 Encounters: 01/12/19 (!) 394 lb (178.7 kg) Mental Status: {IP PT MENTAL STATUS:} IV Access: { JESSICA IV ACCESS:756257635} Nursing Mobility/ADLs: Walking {CHP DME ADLs:125130939} Transfer {CHP DME ADLs:624439661} Bathing {CHP DME ADLs:032698719} Dressing {CHP DME ADLs:348132082} Toileting {CHP DME ADLs:210217588} Feeding {P DME ADLs:701487608} Washcloth Folder {P DME ADLs:497534619} Med Delivery { JESSICA MED Delivery:454581763} Wound Care Documentation and Therapy: Elimination: Continence: Bowel: {YES / NO:} Bladder: {YES / NO:} Urinary Catheter: {Urinary Catheter:269117226} Colostomy/Ileostomy/Ileal Conduit: {YES / NO:} Date of Last BM: No intake or output data in the 24 hours ending 01/14/19 1045 No intake/output data recorded. Safety Concerns: { JESSICA Safety Concerns:692621858} Impairments/Disabilities: { JESSICA Impairments/Disabilities:728563512} Nutrition Therapy: Current Nutrition Therapy: { JESSICA Diet List:714740298} Routes of Feeding: {CHP DME Other Feedings:621799367} Liquids: {Dietary Clerk liquid thickness:72354} Daily Fluid Restriction: {CHP DME Yes amt example:798950499} Last Modified Barium Swallow with Video (Video Swallowing Test): {Done Not Done Date:} Treatments at the Time of Hospital Discharge: Respiratory Treatments: Oxygen Therapy: {Therapy; copd oxygen:09308} Ventilator: { CC Vent List:647196748} Rehab Therapies: {THERAPEUTIC INTERVENTION:6995709237} Weight Bearing Status/Restrictions: { CC Weight Bearin} Other Medical Equipment (for information only, NOT a DME order): {EQUIPMENT:958164953} Other Treatments: Patient's personal belongings (please select all that are sent with patient): {[facility] DME Belongings:967114464} RN SIGNATURE: {Esignature:431194920} CASE MANAGEMENT/SOCIAL WORK SECTION Inpatient Status Date: Readmission Risk Assessment Score: Readmission Risk Risk of Unplanned Readmission: 0 Discharging to Facility/ Agency Name: Address: Phone: Fax: Dialysis Facility (if applicable) Name: Address: Dialysis Schedule: Phone: Fax: Facility Service Associate/Foreclosure Paralegal signature: {Esignature:353887827} PHYSICIAN SECTION Prognosis: {Prognosis:6728427106} Condition at Discharge: { Patient Condition:343338789} Rehab Potential (if transferring to Rehab): {Prognosis:7390905796} Recommended Labs or Other Treatments After Discharge: Physician Certification: I certify the above information and transfer of Kwabena Akers is necessary for the continuing treatment of the diagnosis listed and that he requires {Admit to Appropriate Level of Care:30667} for {GREATER/LESS:491292638} 30 days. Update Admission H&P: {CHP DME Changes in HandP:305611721} PHYSICIAN SIGNATURE: {Esignature:718742300} * Additional Instructions* Ava Enriquez RN - 01/14/2019 Verbally reviewed discharge instructions for care and follow up. Previous print out of these instructions were given with prior treatment. Pt verbalized understanding of instructions given verbally. documented in this encounter* Instructions* Monica Garcia RN - 01/17/2019 Patient and state DrDanie said that his could change the dressing at home after today. Attempted to contact But no one in the office until Tuesday. demonstrated and performed the dressing change today without complications. Informed patient to contact Dr. Cooper if has any questions or complications. States understanding. documented in this encounter* Instructions* Monica Garcia RN - 01/15/2019 Outpatient Discharge Instructions for Wounds [address] [address] You are advised to carry out the following instructions: Diet: As prescribed by your Physician Activity: As prescribed by your Physician Care of Wound : ? If your wound has a change in redness, soreness, swelling, painfulness, or drainage, and you develop a fever notify your physician. ? Dressing changes as Physician ordered. Follow up appointment: Other information: ANY PROBLEMS OR CONCERNS NOTIFY YOUR PHYSICIAN OR GO TO THE NEAREST EMERGENCY ROOM documented in this encounter History of Present Illness * Nuvia Gutierres RN - 01/12/2019 6:00 PM EST Discharge Criteria Outpatients must meet criteria 1 through 7. Up to restroom, void sufficient amount. Yes 1. Minimum 30 minutes after last dose of sedative medication, minimum 120 minutes after last dose of reversal agent. Yes 2. Systolic BP stable within 20 mmHg for 30 minutes & systolic BP between 90 & 180 or within 10 mmHg of baseline. Yes 3. Pulse between 60 and 100 or within 10 bpm of baseline. Yes 4. Spontaneous respiratory rate >/= 10 per minute. Yes 5. SaO2 >/= 95 or >/= baseline. Yes 6. Able to cough and swallow or return to baseline function. Yes 7. Alert and oriented or return to baseline mental status. Yes 8. Demonstrates controlled, coordinated movements, ambulates with steady gait, or return to baseline activity function. Yes 9. Minimal or no pain or nausea, or at a level tolerable and acceptable to patient. Yes 10. Takes and retains oral fluids as allowed. Yes 11. Procedural / perioperative site stable. Minimal or no bleeding. Yes 12. If GI endoscopy procedure, minimal or no abdominal distention or passing flatus. Yes 13. Written discharge instructions and emergency telephone number provided. Yes 14. Accompanied by a responsible adult. Yes Adult patient discharged from facility without responsible person meets above criteria plus the following: a) remains awake without stimulus for 30 minutes b) oriented appropriate for age c) all vital signs stable d) no significant risk of losing protective reflexes e) able to maintain pre-procedure mobility without assistance f) no nausea or dizziness g) transportation arrangements that do not require patient to operate motor Vehicle. Yes * Nuvia Gutierres RN - 01/12/2019 5:34 PM EST Rests comfortably. Has had no post op pain-drinks water without difficulty. Dressing to coccyx areaclean and dry. Dressing change/wound care directions explained to pt, as well as supervisor color paste mixing who makes arrangements for pt to go to [facility] ED for daily dressing changes at 1000. Pt and made aware and verbalize understanding. documented in this encounter* Ava Enriquez RN - 01/13/2019 10:45 AM EST Dressing change as ordered, observed. ABD dressing over site removed with fairly large amount of serosanguinous, very odorous drainage. Area cleansed. Removed approximately 4-5 ft of packing from wound to perirectal area. Site irrigated with saline and antibacterial ointment applied before repacking open wound. Site covered with ABD dressing. Patient tolerated procedure fairly well, area is very tender. Instructed patient to take pain medication prior to dressing change tomorrow for improved pain control. Patient informed of his BP numbers today, admits he has not taken his BP medicationfor the past 2 days. Instructed patient regarding the need for him to take his BP medication today a nd to continue as prescribed. * Ava Enriquez RN - 01/13/2019 10:00 AM EST Patient arrived ambulatory accompanied by for OP wound care documented in this encounter* Ava Enriquez RN - 01/14/2019 10:00 AM EST Patient arrived ambulatory for OP wound care accompanied by documented in this encounter Assessments Diagnosis Gluteal abscess- Primary Cellulitis and abscess of buttock Diagnosis Encounter for prostate cancer screening Special screening for malignant neoplasm of prostate Encounter for Medicare annual wellness exam Routine general medical examination at a health care facility Type 2 diabetes mellitus without complication, without long-term current use of insulin ([facility]) Reason for Referral Specialty Diagnoses / Procedures Referred By Contac t Referred To Contact Radiology Diagnoses Abnormal x-ray Lung density on x-ray Procedures CT CHEST W CONTRAST Marisol Carr MD [address] [place], [place] [address] [place] [address] Referral ID Status Reason Start Date Expiration Date V isits Requested Visits Authorized [id number] Not Required - RTA 03/18/2023 03/17/2024 1 1 Additional Source Comments (unrecognized sect ion and content) No Status Records FoundNo Status Records FoundNo Status Records FoundNo Status Records Found INFORMATION SOURCE (unrecogn ized section and content) DATE CREATED AUTHOR 08/16/2017 [facility] DATE CREATED AUTHOR AUTHOR'S ORGANIZ ATION 11/18/2017 [facility] DATE CREATED AUTHOR AUTHOR'S ORGANIZ ATION 01/17/2019 [facility] DATE CREATED AUTHOR AUTHOR'S ORGANIZ ATION 04/04/2023 [facility] pital Reason for Visit (unrecogniz ed section and content) Status Reason Specialty Diagnoses / Procedures Referre d By Contact Referred To Contact Diagnoses nancy rectal abscess Procedures LA I&D RECTAL SUBMUCOSAL ABSCESS RECTAL PERIRECTAL INCISION AND DRAINAGE Jessica Cooper MD [address] [place] [address] [address] [place] [address] [facility] Specialty Diagnoses / Procedures Referred By Contac t Referred To Contact Radiology Diagnoses Abnormal x-ray Lung density on x-ray Procedures CT CHEST W CONTRAST Marisol Carr MD [address] [place], [place] [address] [place] [address] Referral ID Status Reason Start Date Expiration Date V isits Requested Visits Authorized [id number] Not Required - RTA 03/18/2023 03/17/2024 1 1 Care Teams (unrecognized sec tion and content) Entry Level Marketing Assistant Relationship Specialty Start Date End Date Phil Molina MD [address] [place] [address] [address] [place] [address] PCP - General 03/22/11 Entry Level Marketing Assistant Relationship Specialty Start Date End Date Phil Molina MD [address] [place] [address] [address] [place] [address] PCP - General 03/22/11 Entry Level Marketing Assistant Relationship Specialty Start Date End Date Phil Mloina MD [address] [place] [address] [address] [place] [address] PCP - General 03/22/11 Entry Level Marketing Assistant Relationship Specialty Start Date End Date Marisol Carr MD [address] [place] [address] [id number] PCP - General Family Medicine 06/15/22 Entry Level Marketing Assistant Relationship Specialty Start Date End Date Marisol Carr MD [address] [place] [address] [address] [place], [place] [id number] PCP - General Family Medicine 06/15/22 FOR RECORDS PERTAINING TO PATIENTS WHO ARE OR HAVE BEEN ENROLLED IN A CHEMICAL DEPENDENCY/SUBSTANCEABUSE PROGRAM, SOME INFORMATION MAY BE OMITTED. This clinical summary was aggregated from multiple sources. Caution should be exercised in using it in the provision of clinical care. This summary normalizes information from multiple sources, and as a consequence, information in this document may materially change the coding, format and clinical context of patient data. In addition, data may be omitted in some cases. CLINICAL DECISIONS SHOULD BE BASED ON THE PRIMARY CLINICAL RECORDS. [facility]. provides no warranty or guarantee of the accuracy or completeness of information in this document.
[2023-04-18 09:44] LABS: Anion Gap 14.7; BUN Creatinine Ratio 20.2; Calcium 9.1 mg/dL (8.5-10.1); Carbon Dioxide 25.4 mmol/L (21.0-32.0); Chloride 102 mmol/L (98-107); Estimated GFR (African America >60 (>=60); Estimated GFR (Non-African Ame >60 (>=60); Glucose 142 mg/dL (74-106); Potassium 4.1 mmol/L (3.5-5.1); Sodium 138 mmol/L (136-145)
== END 2023-04-18 08:38 | disposition home or self-care (01) ==
LOC: PST 08:38
PROVIDERS: Visit Provider Orthopaedic Surgery
DX: G56.01 Carpal tunnel syndrome, right upper limb (principal)
CPT/HCPCS: 36415; 80048

== ENCOUNTER 2023-04-19 07:00 | Outpatient (OUT) | payer MEDICARE, OTHER, SELFPAY ==
--- NOTE | 2023-04-19 07:00 | PCN_ITS ---
CARDIAC STRESS TEST ? Requesting Physician:? Procedure Date:? 04/19/2023 ? This is a Lexiscan Stress Test. ? INDICATION:? Dyspnea. ? METHODS:? After risks, benefits and alternatives were explained, written informed consent was obtained.? The patient was brought to the Stress Lab in the resting and fasting state.? He was connected to the appropriate hemodynamic and electrocardiographic monitoring.? ? Lexiscan 0.4 mg was infused intravenously. ?The patient was monitored for the standard duration and discharged in a stable state.? There were no complications. ? FINDINGS: ? HEMODYNAMICS:? Resting heart rate was 75 beats per minute, increasing to a maximum of 90 beats per minute.? Resting blood pressure was 138/70, with a maximum of 142/70.? ? ELECTROCARDIOGRAPHY:? Rest EKG:? Normal sinus rhythm, normal EKG. During infusion and recovery:? No significant ST-T wave changes noted.? No significant arrhythmias seen. ? FINAL IMPRESSIONS: 1.? No ischemic EKG changes seen on Lexiscan Pharmacological Stress Test. 2.? Nuclear images are to be read, interpreted and reported in a separate dictation MTDD
--- OUTSIDE RECORDS SUMMARY | 2023-04-19 07:03 | XMS_ITS | CCD ---
Author Name Unknown Address [address] [place] [address] Organization [facility] Care Team Providers Care Dough Molder Name Role Phone ONEIL WILLIAMSON Unavailable Unavailable GETERRELLINGONEIL Unavailable Unavailable GETERRELLINGONEIL Unavailable Unavailable MOLINA, DIPAKKUMAR Unavailable Unavailable GETERRELLINGONEIL Unavailable Unavailable GETERRELLINGONEIL Unavailable Unavailable MOLINA, DIPAKKUMAR Unavailable Unavailable MOLINA, DIPAKKUMAR Unavailable Unavailable [place] Unavailable Unavailable ONEIL WILLIAMSON Unavailable Unavailable GETERRELLINGONEIL Unavailable Unavailable GEONEIL HEWITT Unavailable Unavailable MOLINA, DIPAKKUMAR Unavailable Unavailable MOLINA, [...] ble Molina, Dipakkumar P Primary Care Provider [phone] KUIVINEN JESSICA P Admitting Unavailable KUIVINEN JESSICA P Attending Unavailable MOLINA, DIPAKKUMAR P Primary Care Unavailable Molina, Dipakkumar P Primary Care Provider Phil Molina MD Primary Care Provider Phil Molina MD Primary Care Provider [phone] Marisol Carr MD Primary Care Provider MARISOL [...] Attending Unavailable IACOB, MARISOL Referring Unavailable IACOB, MARISLO Primary Care Unavailable IACOB, MARISOL Attending Unavailable [...] Drug Class(es) Dates Sig (Normalized) Sig (Original) [id number] 200 actuat albuterol 0.09 mg/actuat metered dose [...] hyperglycemia, without long-term current use of insulin ([facility]) 1 Units by Does not apply route 2 times daily 1 kit 0 08/26/2022 Active Start: 03-31-2018 Blood Glucose Monitoring Suppl w/Device KIT Indications: Diabetes mellitus due to underlying condition with hyperglycemia, without long-term current use of insulin ([facility]) 1 Units by Does not apply route [...] complication, with long-term current use of insulin ([facility]) Inject 30 Units into the skin nightly 5 pen 3 08/28/2021 Active Start: 06-25-2021 insulin detemi r ([facility]EM[facility]LEXTOU[facility]) 100 UNIT/ML injection pen Indications: Type 2 diabetes mellitus without complication, without long-term current use of insulin ([facility]) Inject 20 Units into the skin nightly [...] 01-12-2019 morphine (PF) injection 1 mg nystatin 655303 unt/ml / triamcinolone acetonide 1 mg/ml topical cream (6 sources) Polyene Antifungal, Corticosteroid Start: 11-17-2016 nystatin-triamcin olone (MYCOLOG II) 932951-4.1 UNIT/GM-% cream Apply topically 2 times daily [...] / UNK(Unknown) Onset: 10-12-2016 Unclassified (1 source) prison (current) use of oral hypoglycemic drugs; Translations: [QUOTER (CURRENT) USE OF ORAL HYPOGLYCEMIC DRUGS] Onset: [...] 09-16-2022 09-16-2022 Episodic Other aftercare (3 sources) prison (current) use of aspirin; Translations: [Other detention (current) drug therapy] Onset: 10-12-2016 Episodic Other aftercare (1 source) prison (current) use of insulin; Translations: [prison (current) use of insulin] Onset: 10-20-2022 Episodic [...] Sukhwinder Man MD 04/02/23 Final result Normal [facility] CT Chest W contrast Eboni No acute cardiopulmo nary process. [facility] RIS CONSOLIDATED EXAMINATION: CT OF THE CHEST [...] Tissues/Bones: No acute bony abnormalities are noted. [facility] CONSOLID[facility] Sukhwinder Man MD - 04/02/2023 [...] are noted. IMPRESSION: No acute cardiopulmonary process. [facility] CT Chest W contrast IVOrdere d By: Sukhwinder Man on 04-02-2023 [facility] Work Phone: CBC with Auto Differentialon 03-31-2023 Basophils (Bld) [#/Vol] 0.14 10*3/uL [facility] Basophils/100 WBC (Bld) 1 % 0 - 2 % [facility] Eosinophils (Bld) [#/Vol] 0.65 10*3/uL High [facility] Eosinophils/100 WBC (Bld) 6 % High 1 - 4 % [facility] Erythrocyte distribution width (RBC) [Ratio] 13.2 % 11.8 - 14.4 % [facility] Hematocrit (Bld) [Volume fraction] 40.0 % Low 40.7 - 50.3 % [facility] Hemoglobin (Bld) [Mass/Vol] 12.9 g/dL Low 13.0 - 17.0 g/dL [facility] Immature granulocytes (Bld) [#/Vol] 0.08 10*3/uL [facility] Immature granulocytes/100 WBC (Bld) 1 % High 0 [facility] Interpretation and review of laboratory results Abnormal [facility] Lymphocytes/100 WBC (Bld) 23 % Low 24 - 43 % [facility] Lymphocytes/100 WBC (Bld) 2.37 % [facility] MCH (RBC) [Entitic mass] 28.9 pg 25.2 - 33.5 pg [facility] MCHC (RBC) [Mass/Vol] 32.3 g/dL 28.4 - 34.8 g/dL [facility] MCV (RBC) [Entitic vol] 89.7 fL 82.6 - 102.9 fL [facility] Monocytes/100 WBC (Bld) 8 % 3 - 12 % [facility] Monocytes/100 WBC (Bld) 0.81 % [facility] Neutrophils/100 WBC (Bld) 61 % 36 - 65 % [facility] Nucleated RBC/100 WBC (Bld) [Ratio] 0.0 % 0.0 per 100 WBC [facility] Platelet mean volume (Bld) [Entitic vol] 8.8 fL 8.1 - 13.5 fL [facility] Platelets (Bld) [#/Vol] 440 10*3/uL [facility] RBC (Bld) [#/Vol] 4.46 10*6/uL 4.21 - 5.7 7 m/uL [facility] Segmented neutrophils/100 WBC (Bld) 6.41 % [facility] WBC other (Bld) [#/Vol] 10.5 [facility] CBC with Diffon 03-31-2023 Abs. Basophil 0.14 k/uL Normal 0.00-0.20 [facility] Comment on above: Performed By: #### U RNMAB #### [facility] [employer] [address] [place] [address] Spectrographic Analyst: Dexter Madera MD Abs.Imm.Granulocyt e 0.08 k/uL Normal 0.00-0.30 [facility] Comment on above: Performed By: #### U RNMAB #### [facility] [address] [place], [place] [phone] Spectrographic Analyst: Dexter Madera MD Abs.Neutrophil (Seg) 6.41 k/uL Normal 1.50-8.10 [facility] Comment on above: Performed By: #### U RNMAB #### [facility] [employer] [address] [place], [place] [phone] Spectrographic Analyst: Dexter Madera MD Basophils/100 WBC (Bld) 1 % Normal 0-2 [facility] Comment on above: Performed By: #### U RNMAB #### [address] [address] Spectrographic Analyst: Dexter Madera MD Eosinophils (Bld) [#/Vol] 0.65 10*3/uL High 0.00-0.44 [facility] Comment on above: Performed By: #### U RNMAB #### [address] [address] Spectrographic Analyst: Dexter Madera MD Eosinophils/100 WBC (Bld) 6 % High 1-4 [facility] Comment on above: Performed By: #### U RNMAB #### [address] [address] Spectrographic Analyst: Dexter Madera MD Erythrocyte distribution width (RBC) [Ratio] 13.2 % Normal 11.8-14.4 [facility] Comment on above: Performed By: #### U RNMAB #### [address] [address] Spectrographic Analyst: Dexter Madera MD Hematocrit (Bld) [Volume fraction] 40.0 % Low 40.7-50.3 [facility] Comment on above: Performed By: #### U RNMAB #### [address] [address] Spectrographic Analyst: Dexter Madera MD Hemoglobin (Bld) [Mass/Vol] 12.9 g/dL Low 13.0-17.0 [facility] Comment on above: Performed By: #### U RNMAB #### [address] [address] Spectrographic Analyst: Dexter Madera MD Immature granulocytes/100 WBC (Bld) 1 % High 0 [facility] Comment on above: Performed By: #### U RNMAB #### [address] [address] Spectrographic Analyst: Dexter Madera MD Lymphocytes (Bld) [#/Vol] 2.37 10*3/uL Normal 1.10-3.70 [facility] Comment on above: Performed By: #### U RNMAB #### [address] [address] Spectrographic Analyst: Dexter Madera MD Lymphocytes/100 WBC (Bld) 23 % Low 24-43 [facility] Comment on above: Performed By: #### U RNMAB #### [place] [address] Spectrographic Analyst: Dexter Madera MD MCH (RBC) [Entitic mass] 28.9 pg Normal 25.2-33.5 [facility] Comment on above: Performed By: #### U RNMAB #### [place] [address] Spectrographic Analyst: Dexter Madera MD MCHC (RBC) [Mass/Vol] 32.3 g/dL Normal 28.4-34.8 [facility] Comment on above: Performed By: #### U RNMAB #### [place] [address] Spectrographic Analyst: Dexter Madera MD MCV (RBC) [Entitic vol] 89.7 fL Normal 82.6-102.9 [facility] Comment on above: Performed By: #### U RNMAB #### [place] [address] Spectrographic Analyst: Dexter Madera MD Monocytes (Bld) [#/Vol] 0.81 10*3/uL Normal 0.10-1.20 [facility] Comment on above: Performed By: #### U RNMAB #### [address] [address] Spectrographic Analyst: Dexter Madera MD Monocytes/100 WBC (Bld) 8 % Normal 3-12 [facility] Comment on above: Performed By: #### U RNMAB #### [address] [place] [address] Spectrographic Analyst: Dexter Madera MD Neutrophil (Seg) 61 % Normal 36-65 [facility] Comment on above: Performed By: #### U RNMAB #### [address] [address] Spectrographic Analyst: Dexter Madera MD NRBC Automated 0.0 per 100 WBC Normal 0.0 [facility] Comment on above: Performed By: #### U RNMAB #### [address] [address] Spectrographic Analyst: Dexter Madera MD Platelet mean volume (Bld) [Entitic vol] 8.8 fL Normal 8.1-13.5 [facility] Comment on above: Performed By: #### U RNMAB #### [address] [address] Spectrographic Analyst: Dexter Madera MD Platelets (Bld) [#/Vol] 440 10*3/uL Normal 138-453 [facility] Comment on above: Performed By: #### U RNMAB #### [address] [address] Spectrographic Analyst: Dexter Madera MD RBC (Bld) [#/Vol] 4.46 10*6/uL Normal 4.21-5.77 [facility] Comment on above: Performed By: #### U RNMAB #### [address] [address] Spectrographic Analyst: Dexter Madera MD WBC (Bld) [#/Vol] 10.5 10*3/uL Normal 3.5-11.3 [facility] Comment on above: Performed By: #### U RNMAB #### [address] [address] Spectrographic Analyst: Dexter Madera MD CT Chest W contrast Eboni Radiology Study observation (narrative) LYNN MANCIA [facility] Metabolic Profon 2023 Albumin [Mass/Vol] 4.2 g/dL Normal 3.5-5.2 [facility] Comment on above: Performed By: #### U RNMAB #### [address] [address] Spectrographic Analyst: Dexter Madera MD Albumin/Glob Ratio 1.3 Normal 1.0-2.5 [facility] Comment on above: Performed By: #### U RNMAB #### [address] [address] Spectrographic Analyst: Dexter Madera MD Alkaline Phos 71 U/L Normal 40-129 [facility] Comment on above: Performed By: #### U RNMAB #### [address] [address] Spectrographic Analyst: Dexter Madera MD ALT [Catalytic activity/Vol] 27 U/L Normal 5-41 [facility] Comment on above: Performed By: #### U RNMAB #### [address] [address] Spectrographic Analyst: Dexter Madera MD Anion gap [Moles/Vol] 7 mmol/L Low 9-17 [facility] Comment on above: Performed By: #### U RNMAB #### [address] [address] Spectrographic Analyst: Dexter Madera MD AST [Catalytic activity/Vol] 21 U/L Normal <40 [facility] Comment on above: Performed By: #### U RNMAB #### [address] [address] Spectrographic Analyst: Dexter Madera MD Bilirubin [Mass/Vol] 0.3 mg/dL Normal 0.3-1.2 [facility] Comment on above: Performed By: #### U RNMAB #### [employer] [address] [place] [address] Spectrographic Analyst: Dexter Madera MD BUN/CRE Ratio 20 Normal 9-20 [facility] Comment on above: Performed By: #### U RNMAB #### [address] [place] [address] Spectrographic Analyst: Dexter Madera MD Calcium [Mass/Vol] 9.8 mg/dL Normal 8.6-10.4 [facility] Comment on above: Performed By: #### U RNMAB #### [address] [address] Spectrographic Analyst: Dexter Madera MD Chloride [Moles/Vol] 102 mmol/L Normal 98-107 [facility] Comment on above: Performed By: #### U RNMAB #### [address] [address] Spectrographic Analyst: Dexter Madera MD CO2 [Moles/Vol] 31 mmol/L Normal 20-31 [facility] Comment on above: Performed By: #### U RNMAB #### [address] [address] Spectrographic Analyst: Dexter Madera MD Creatinine [Mass/Vol] 0.7 mg/dL Normal 0.7-1.2 [facility] Comment on above: Performed By: #### U RNMAB #### [address] [address] Spectrographic Analyst: Dexter Madera MD GFR/1.73 sq M.predicted among non-blacks MDRD (S/P/Bld) [Vol rate/Area] mL/min/{1.73_m2} Normal >60 [facility] Comment on above: Result Comment: These results [...] secretion. Performed By: #### U RNMAB #### [facility] [address] [place] [address] Spectrographic Analyst: Dexter Madera MD Glucose [Mass/Vol] 147 mg/dL High 70-99 [facility] Comment on above: Performed By: #### U RNMAB #### [facility] [address] [place] [address] Spectrographic Analyst: Dexter Madera MD Potassium [Moles/Vol] 4.1 mmol/L Normal 3.7-5.3 [facility] Comment on above: Performed By: #### U RNMAB #### [facility] [address] [place] [address] Spectrographic Analyst: Dexter Madera MD Protein [Mass/Vol] 7.5 g/dL Normal 6.4-8.3 [facility] Comment on above: Performed By: #### U RNMAB #### [facility] [address] [place] [address] Spectrographic Analyst: Dexter Madera MD Sodium [Moles/Vol] 140 mmol/L Normal 135-144 [facility] Comment on above: Performed By: #### U RNMAB #### [employer] [address] [place] [address] Spectrographic Analyst: Dexter Madera MD Urea nitrogen [Mass/Vol] 14 mg/dL Normal 8-23 [facility] Comment on above: Performed By: #### U RNMAB #### [employer] [address] [place] [address] Spectrographic Analyst: Dexter Madera MD Comprehensive Metabolic Pane [facility] 03-31-2023 Albumin [Mass/Vol] 4.2 g/dL 3.5 - 5.2 g/dL [facility] Albumin/Globulin [Mass ratio] 1.3 {ratio} 1.0 - 2.5 [facility] ALP [Catalytic activity/Vol] 71 U/L 40 - 129 U/L [facility] ALT [Catalytic activity/Vol] 27 U/L 5 - 41 U/L [facility] Anion gap [Moles/Vol] 7 mmol/L Low 9 - 17 mmol/L [facility] AST [Catalytic activity/Vol] 21 U/L NINF - 40 U/L [facility] Bilirubin [Mass/Vol] 0.3 mg/dL 0.3 - 1.2 mg/dL [facility] Calcium [Mass/Vol] 9.8 mg/dL 8.6 - 10. 4 mg/dL [facility] Chloride [Moles/Vol] 102 mmol/L 98 - 107 mmol/L [facility] CO2 [Moles/Vol] 31 mmol/L 20 - 31 mmol/L [facility] Creatinine [Mass/Vol] 0.7 mg/dL 0.7 - 1.2 mg/dL [facility] GFR/1.73 sq M.predicted MDRD (S/P/Bld) [Vol rate/Area] - PINF [facility] Comment on above: These results are [...] 147 mg/dL High 70 - 99 mg/dL [facility] Interpretation and review of laboratory results Abnormal [facility] Potassium [Moles/Vol] 4.1 mmol/L 3.7 - 5.3 mmol/L [facility] Protein [Mass/Vol] 7.5 g/dL 6.4 - 8.3 g/dL [facility] Sodium [Moles/Vol] 140 mmol/L 135 - 144 mmol/L [facility] Urea nitrogen [Mass/Vol] 14 mg/dL 8 - 23 mg/dL [facility] Urea nitrogen/Creatinin e [Mass ratio] 20 mg/mg 9 - 20 [facility] Lipid Panelon 03-31-2023 Cholesterol [Mass/Vol] 141 mg/dL NINF - 200 mg/dL [facility] Comment on above: Cholesterol Guidelines: <200 Desirable 200-240 Borderline >240 Undesirable Cholesterol in HDL [Mass/Vol] 34 mg/dL Low 40 - PINF mg/dL [facility] Comment on above: HDL Guidelines: <40 Undesirable 40-59 Borderline >59 Desirable Cholesterol in LDL [Mass/Vol] 77 mg/dL 0 - 130 mg/dL [facility] Comment on above: LDL Guidelines: <100 Desirable 100-129 Near to/above Desirable 130-159 Borderline >159 Undesirable Direct (measured) LDL and calculated LDL are not interchangeable tests. Cholesterol.total/ Cholesterol in HDL [Mass ratio] 4.1 {ratio} NINF - 5 [facility] Interpretation and review of laboratory results Abnormal [facility] Triglyceride [Mass/Vol] 148 mg/dL NINF - 150 mg/dL [facility] Comment on above: Triglyceride Guidelines: <150 Desirable 150-199 Borderline 200-499 High >499 Very high Based on AHA Guidelines for fasting triglyceride, November 2011. [facility] Lipid Profileon 03-31-2023 Cholesterol [Mass/Vol] 141 mg/dL Normal <200 [facility] Comment on above: Result Comment: Cholesterol Guidelines: <200 Desirable 200-240 Borderline >240 Undesirable Performed By: #### L IPR #### [employer] [id number] Spectrographic Analyst: Dexter Madera MD Cholesterol in HDL [Mass/Vol] 34 mg/dL Low >40 [facility] Comment on above: Result Comment: HDL Guidelines: <40 Undesirable 40-59 Borderline >59 Desirable Performed By: #### L IPR #### [employer] [address] [place], [place] [id number] Spectrographic Analyst: Dexter Madera MD Cholesterol in LDL [Mass/Vol] 77 mg/dL Normal 0-130 [facility] Comment on above: Result Comment: LDL Guidelines: <100 Desirable 100-129 Near to/above Desirable 130-159 Borderline >159 Undesirable Direct (measured) LDL and calculated LDL are not interchangeable tests. Performed By: #### L IPR #### [address] [address] Spectrographic Analyst: Dexter Madera MD Cholesterol.total/ Cholesterol in HDL [Mass ratio] 4.1 {ratio} Normal <5 [facility] Comment on above: Performed By: #### L IPR #### [address] [address] Spectrographic Analyst: Dexter Madera MD Triglyceride [Mass/Vol] 148 mg/dL Normal <150 [facility] Comment on above: Result Comment: Triglyceride Guidelines: <150 Desirable 150-199 Borderline 200-499 High >499 Very high Based on AHA Guidelines for fasting triglyceride, November 2011. Performed By: #### L IPR #### [address] [address] Spectrographic Analyst: Dexter Madera MD Hemoglobin A1Con 02-10-2023 Glucose [Mass/Vol] 186 mg/dL Normal [facility] Comment on above: Result Comment: The ADA and AACC recommend providing the estimated average glucose result to permit better patient understanding of their HBA1c result. Performed By: #### G LYHGB #### [address] [address] Spectrographic Analyst: Dexter Madera MD HbA1c (Bld) [Mass fraction] 8.1 % High 4.0-6.0 [facility] Comment on above: Performed By: #### G LYHGB #### [address] [address] Spectrographic Analyst: Dexter Madera MD XR HAND RIGHT (MIN [...] Dhaval Lopez MD 12/23/22 Final result Normal [facility] Hemoglobin A1Con 10-28-2022 Glucose [Mass/Vol] 217 mg/dL Normal [facility] Comment on above: Result Comment: The ADA and AACC recommend providing the estimated average glucose result to permit better patient understanding of their HBA1c result. Performed By: #### C P, CDP #### [facility] [address] [place] [address] Dr[address] [place] [id number] Spectrographic Analyst: Barak Garcia MD #### GLYHGB #### [place] [id number] Spectrographic Analyst: Dexter Madera MD HbA1c (Bld) [Mass fraction] 9.2 % High 4.0-6.0 [facility] Comment on above: Performed By: #### C P, CDP #### [address] [place] [phone] Spectrographic Analyst: Barak Garcia MD #### GLYHGB #### [place] [id number] Spectrographic Analyst: Dexter Madera MD CBC with Diffon 10-27-2022 Abs. Basophil 0.12 k/uL Normal 0.00-0.20 [facility] Comment on above: Performed By: #### C P, CDP #### [facility] [address] [place] [address] [place] [address] Spectrographic Analyst: Barak Garcia MD #### GLYHGB #### [address] [id number] Spectrographic Analyst: Dexter Madera MD Abs.Imm.Granulocyt e 0.03 k/uL Normal 0.00-0.30 [facility] Comment on above: Performed By: #### C P, CDP #### [address] [place] [phone] Spectrographic Analyst: Barak Garcia MD #### GLYHGB #### [place] [address] Spectrographic Analyst: Dexter Madera MD Abs.Neutrophil (Seg) 7.42 k/uL Normal 1.50-8.10 [facility] Comment on above: Performed By: #### C P, CDP #### [address] [place] [address] Spectrographic Analyst: Barak Garcia MD #### GLYHGB #### [place] [address] Spectrographic Analyst: Dexter Madera MD Basophils/100 WBC (Bld) 1 % Normal 0-2 [facility] Comment on above: Performed By: #### C P, CDP #### [address] [place] [phone] Spectrographic Analyst: Barak Garcia MD #### GLYHGB #### [place] [address] Spectrographic Analyst: Dexter Madera MD Eosinophils (Bld) [#/Vol] 0.66 10*3/uL High 0.00-0.44 [facility] Comment on above: Performed By: #### C P, CDP #### [address] [place] [id number] Spectrographic Analyst: Barak Garcia MD #### GLYHGB #### [address] [address] Spectrographic Analyst: Dexter Madera MD Eosinophils/100 WBC (Bld) 6 % High 1-4 [facility] Comment on above: Performed By: #### C P, CDP #### [facility] [address] [place], [place] [phone] Spectrographic Analyst: Barak Garcia MD #### GLYHGB #### [address] [id number] Spectrographic Analyst: Dexter Madera MD Erythrocyte distribution width (RBC) [Ratio] 13.6 % Normal 11.8-14.4 [facility] Comment on above: Performed By: #### C P, CDP #### [facility] [address] [place] [phone] Spectrographic Analyst: Barak Garcia MD #### GLYHGB #### [address] [id number] Spectrographic Analyst: Dexter Madera MD Hematocrit (Bld) [Volume fraction] 40.6 % Low 40.7-50.3 [facility] Comment on above: Performed By: #### C P, CDP #### [facility] [address] [place], [place] [id number] Spectrographic Analyst: Barak Garcia MD #### GLYHGB #### [address] [phone] Spectrographic Analyst: Dexter Madera MD Hemoglobin (Bld) [Mass/Vol] 13.6 g/dL Normal 13.0-17.0 [facility] Comment on above: Performed By: #### C P, CDP #### [facility] [address] [place], [place] [phone] Spectrographic Analyst: Barak Garcia MD #### GLYHGB #### [address] [phone] Spectrographic Analyst: Dexter Madera MD Immature granulocytes/100 WBC (Bld) 0 % Normal 0 [facility] Comment on above: Performed By: #### C P, CDP #### [facility] [address] [place], [place] [phone] Spectrographic Analyst: Barak Garcia MD #### GLYHGB #### [address] [id number] Spectrographic Analyst: Dexter Madera MD Lymphocytes (Bld) [#/Vol] 2.09 10*3/uL Normal 1.10-3.70 [facility] Comment on above: Performed By: #### C P, CDP #### [facility] [address] [place], [place] 8[address]83 Spectrographic Analyst: Barak Garcia MD #### GLYHGB #### [address] [id number] Spectrographic Analyst: Dexter Madera MD Lymphocytes/100 WBC (Bld) 19 % Low 24-43 [facility] Comment on above: Performed By: #### C P, CDP #### [facility] [address] [place], [place] [phone] Spectrographic Analyst: Barak Garcia MD #### GLYHGB #### [address] [place] [address] Spectrographic Analyst: Dexter Madera MD MCH (RBC) [Entitic mass] 29.4 pg Normal 25.2-33.5 [facility] Comment on above: Performed By: #### C P, CDP #### [facility] [address] [place], [place] 3096383 Spectrographic Analyst: Barak Garcia MD #### GLYHGB #### [address] [address] Spectrographic Analyst: Dexter Madera MD MCHC (RBC) [Mass/Vol] 33.5 g/dL Normal 28.4-34.8 [facility] Comment on above: Performed By: #### C P, CDP #### [facility] [address] [place], [place] [address] Spectrographic Analyst: Barak Garcia MD #### GLYHGB #### [address] [id number] Spectrographic Analyst: Dexter Madera MD MCV (RBC) [Entitic vol] 87.9 fL Normal 82.6-102.9 [facility] Comment on above: Performed By: #### C P, CDP #### [facility] [address] [place] [address] Dr. [place], [place] [phone] Spectrographic Analyst: Barak Garcia MD #### GLYHGB #### [address] [address] Spectrographic Analyst: Dexter Madera MD Monocytes (Bld) [#/Vol] 0.86 10*3/uL Normal 0.10-1.20 [facility] Comment on above: Performed By: #### C P, CDP #### [address] [place], [place] [phone] Spectrographic Analyst: Barak Garcia MD #### GLYHGB #### [address] [id number] Spectrographic Analyst: Dexter Madera MD Monocytes/100 WBC (Bld) 8 % Normal 3-12 [facility] Comment on above: Performed By: #### C P, CDP #### [address] [address] [place], [place] [id number] Spectrographic Analyst: Barak Garcia MD #### GLYHGB #### [address] [address] Spectrographic Analyst: Dexter Madera MD Neutrophil (Seg) 66 % High 36-65 [facility] Comment on above: Performed By: #### C P, CDP #### [facility] [address] [place] [address] Dr. [place] [phone] Spectrographic Analyst: Barak Garcia MD #### GLYHGB #### [address] [id number] Spectrographic Analyst: Dexter Madera MD NRBC Automated 0.0 per 100 WBC Normal 0.0 [facility] Comment on above: Performed By: #### C P, CDP #### [address] [place] [phone] Spectrographic Analyst: Barak Garcia MD #### GLYHGB #### [place] [address] Spectrographic Analyst: Dexter Madera MD Platelet mean volume (Bld) [Entitic vol] 9.4 fL Normal 8.1-13.5 [facility] Comment on above: Performed By: #### C P, CDP #### [address] [place] [phone] Spectrographic Analyst: Barak Garcia MD #### GLYHGB #### [place] [address] Spectrographic Analyst: Dexter Madera MD Platelets (Bld) [#/Vol] 389 10*3/uL Normal 138-453 [facility] Comment on above: Performed By: #### C P, CDP #### [address] [place] 7494783 Spectrographic Analyst: Barak Garcia MD #### GLYHGB #### [address] [id number] Spectrographic Analyst: Dexter Madera MD RBC (Bld) [#/Vol] 4.62 10*6/uL Normal 4.21-5.77 [facility] Comment on above: Performed By: #### C P, CDP #### [address] [place] 7494783 Spectrographic Analyst: Barak Garcia MD #### GLYHGB #### [place] [address] [place] [address] Spectrographic Analyst: Dexter Madera MD WBC (Bld) [#/Vol] 11.2 10*3/uL Normal 3.5-11.3 [facility] Comment on above: Performed By: #### C P, CDP #### [facility] [address] [place] [address] [place], [place] [phone] Spectrographic Analyst: Barak Garcia MD #### GLYHGB #### [address] [address] Spectrographic Analyst: Dexter Madera MD Comp Metabolic Profon 2022 Albumin [Mass/Vol] 4.5 g/dL Normal 3.5-5.2 [facility] Comment on above: Performed By: #### C P, CDP #### [address] [place] [phone] Spectrographic Analyst: Barak Garcia MD #### GLYHGB #### [address] [address] Spectrographic Analyst: Dexter Madera MD Albumin/Glob Ratio 1.5 Normal 1.0-2.5 [facility] Comment on above: Performed By: #### C P, CDP #### [facility] [address] [place] [address] Dr. [place] [phone] Spectrographic Analyst: Barak Garcia MD #### GLYHGB #### [address] [place] [address] Spectrographic Analyst: Dexter Madera MD Alkaline Phos 71 U/L Normal 40-129 [facility] Comment on above: Performed By: #### C P, CDP #### [facility] [address] [place] [address] [place] [address] Spectrographic Analyst: Barak Garcia MD #### GLYHGB #### [facility] [address] [place] [address] Spectrographic Analyst: Dexter Madera MD ALT [Catalytic activity/Vol] 30 U/L Normal 5-41 [facility] Comment on above: Performed By: #### C P, CDP #### [facility] [address] [place], [place] [id number] Spectrographic Analyst: Barak Garcia MD #### GLYHGB #### [facility] [address] [place] [address] Spectrographic Analyst: Dexter Madera MD Anion gap [Moles/Vol] 12 mmol/L Normal 9-17 [facility] Comment on above: Performed By: #### C P, CDP #### [facility] [address] [place], [place] 8152283 Spectrographic Analyst: Barak Garcia MD #### GLYHGB #### [address] [address] Spectrographic Analyst: Dexter Madera MD AST [Catalytic activity/Vol] 22 U/L Normal <40 [facility] Comment on above: Performed By: #### C P, CDP #### [facility] [address] [place], [place] [phone] Spectrographic Analyst: Barak Garcia MD #### GLYHGB #### [facility] [address] [place] [address] Spectrographic Analyst: Dexter Madera MD Bilirubin [Mass/Vol] 0.3 mg/dL Normal 0.3-1.2 [facility] Comment on above: Performed By: #### C P, CDP #### [facility] [address] [place], [place] 1436683 Spectrographic Analyst: Barak Garcia MD #### GLYHGB #### [address] [address] Spectrographic Analyst: Dexter Madera MD BUN/CRE Ratio 23 High 9-20 [facility] Comment on above: Performed By: #### C P, CDP #### [facility] [address] [place], [place] 6127883 Spectrographic Analyst: Barak Garcia MD #### GLYHGB #### [address] [address] Spectrographic Analyst: Dexter Madera MD Calcium [Mass/Vol] 9.9 mg/dL Normal 8.6-10.4 [facility] Comment on above: Performed By: #### C P, CDP #### [facility] [address] [place], [place] 2486483 Spectrographic Analyst: Barak Garcia MD #### GLYHGB #### [address] [address] Spectrographic Analyst: Dexter Madera MD Chloride [Moles/Vol] 103 mmol/L Normal 98-107 [facility] Comment on above: Performed By: #### C P, CDP #### [facility] [address] [place] [address] Dr. [place], [place] 1548383 Spectrographic Analyst: Barak Garcia MD #### GLYHGB #### [address] [address] Spectrographic Analyst: Dexter Madera MD CO2 [Moles/Vol] 26 mmol/L Normal 20-31 [facility] Comment on above: Performed By: #### C P, CDP #### [facility] [address] [place], [place] 3320983 Spectrographic Analyst: Barak Garcia MD #### GLYHGB #### [address] [address] Spectrographic Analyst: Dexter Madera MD Creatinine [Mass/Vol] 0.8 mg/dL Normal 0.7-1.2 [facility] Comment on above: Performed By: #### C P, CDP #### [facility] [address] [place] [address] Spectrographic Analyst: Barak Garcia MD #### GLYHGB #### [address] [phone] Spectrographic Analyst: Dexter Madera MD GFR/1.73 sq M.predicted among non-blacks MDRD (S/P/Bld) [Vol rate/Area] mL/min/{1.73_m2} Normal >60 [facility] Comment on above: Result Comment: These results [...] Performed By: #### C P, CDP #### [address] [place], [place] 7874883 Spectrographic Analyst: Barak Garcia MD #### GLYHGB #### [place] [address] [place], [place] 6877608 Spectrographic Analyst: Dexter Madera MD Glucose [Mass/Vol] 217 mg/dL High 70-99 [facility] Comment on above: Performed By: #### C P, CDP #### [facility] [address] [place], [place] 1616883 Spectrographic Analyst: Barak Garcia MD #### GLYHGB #### [address] [address] Spectrographic Analyst: Dexter Madera MD Potassium [Moles/Vol] 4.2 mmol/L Normal 3.7-5.3 [facility] Comment on above: Performed By: #### C P, CDP #### [facility] [address] [place], [place] [id number] Spectrographic Analyst: Barak Garcia MD #### GLYHGB #### [address] [id number] Spectrographic Analyst: Dexter Madera MD Protein [Mass/Vol] 7.5 g/dL Normal 6.4-8.3 [facility] Comment on above: Performed By: #### C P, CDP #### [facility] [address] [place], [place] 8520083 Spectrographic Analyst: Barak Garcia MD #### GLYHGB #### [facility] [employer] [address] [place] [address] [phone] Spectrographic Analyst: Dexter Madera MD Sodium [Moles/Vol] 141 mmol/L Normal 135-144 [facility] Comment on above: Performed By: #### C P, CDP #### [facility] [address] [place] [address] [place], [place] 7769683 Spectrographic Analyst: Barak Garcia MD #### GLYHGB #### [address] [address] Spectrographic Analyst: Dexter Madera MD Urea nitrogen [Mass/Vol] 18 mg/dL Normal 8-23 [facility] Comment on above: Performed By: #### C P, CDP #### [facility] [address] [place] [address] [place], [place] 1376583 Spectrographic Analyst: Barak Garcia MD #### GLYHGB #### [address] [address] Spectrographic Analyst: Dexter Madera MD Lipid Profileon 10-27-2022 Cholesterol [Mass/Vol] 151 mg/dL Normal <200 [facility] Comment on above: Result Comment: Cholesterol Guidelines: <200 Desirable 200-240 Borderline >240 Undesirable Performed By: #### U RNMAB #### [facility] [place] [address] Spectrographic Analyst: Dexter Madera MD Cholesterol in HDL [Mass/Vol] 35 mg/dL Low >40 [facility] Comment on above: Result Comment: HDL Guidelines: <40 Undesirable 40-59 Borderline >59 Desirable Performed By: #### U RNMAB #### [address] [address] Spectrographic Analyst: Dexter Madera MD Cholesterol in LDL [Mass/Vol] 87 mg/dL Normal 0-130 [facility] Comment on above: Result Comment: LDL Guidelines: <100 Desirable 100-129 Near to/above Desirable 130-159 Borderline >159 Undesirable Direct (measured) LDL and calculated LDL are not interchangeable tests. Performed By: #### U RNMAB #### [facility] [employer] [address] [place] [address] Spectrographic Analyst: Dexter Madera MD Cholesterol.total/ Cholesterol in HDL [Mass ratio] 4.3 {ratio} Normal <5 [facility] Comment on above: Performed By: #### U RNMAB #### [facility] [employer] [address] [place] [address] Spectrographic Analyst: Dexter Madera MD Triglyceride [Mass/Vol] 143 mg/dL Normal <150 [facility] Comment on above: Result Comment: Triglyceride Guidelines: <150 Desirable 150-199 Borderline 200-499 High >499 Very high Based on AHA Guidelines for fasting triglyceride, November 2011. Performed By: #### U RNMAB #### [employer] [address] [place] [address] Spectrographic Analyst: Dexter Madera MD Microalb.,Random Uron 2022 Creatinine [Mass/Vol] 116.4 mg/dL Normal 39.0-259.0 [facility] Comment on above: Performed By: #### U RNMAB #### [employer] [address] [place] [address] Spectrographic Analyst: Dexter Madera MD Microalb/Creat Ratio 60 mcg/mg creat High <17 [facility] Comment on above: Performed By: #### U RNMAB #### [facility] [employer] [facility] [place], [place] 3234808 Spectrographic Analyst: Dexter Madera MD Microalbumin conc. 70 mg/L High <21 [facility] Comment on above: Performed By: #### U RNMAB #### [facility] [employer] [address] [place] [address] [phone] Spectrographic Analyst: Dexter Madera MD Surgical Pathologyon 023 Surgical Pathology (NOTE) Path Number: [id number] -- Diagnosis -- A. ABNORMAL SKIN GROWTH, [...] Microscopic Description Microscopic examination performed. Processing Lab: [address] [id number] Interpretation Performed at [address] [id number] SURGICAL PATHOLOGY CONSULTATION Patient Name: MARY AKERSMIKAEL Sanders Med Rec: [id number] [facility] [employer] [facility] ANATOMIC PATHOLOG[facility] [address] [place] [phone] Normal [facility] Lipid Profileon 04-30-2022 Cholesterol [Mass/Vol] 167 mg/dL Normal <200 [facility] Comment on above: Result Comment: Cholesterol Guidelines: <200 Desirable 200-240 Borderline >240 Undesirable Performed By: #### U RNMAB #### [address] [id number] Spectrographic Analyst: Dexter Madera MD Cholesterol in HDL [Mass/Vol] 39 mg/dL Low >40 [facility] Comment on above: Result Comment: HDL Guidelines: <40 Undesirable 40-59 Borderline >59 Desirable Performed By: #### U RNMAB #### [employer] [address] [place] [address] [id number] Spectrographic Analyst: Dexter Madera MD Cholesterol in LDL [Mass/Vol] 97 mg/dL Normal 0-130 [facility] Comment on above: Result Comment: LDL Guidelines: <100 Desirable 100-129 Near to/above Desirable 130-159 Borderline >159 Undesirable Direct (measured) LDL and calculated LDL are not interchangeable tests. Performed By: #### U RNMAB #### [facility] [address] [place] [address] [phone] Spectrographic Analyst: Dexter Madera MD Cholesterol.total/ Cholesterol in HDL [Mass ratio] 4.3 {ratio} Normal <5 [facility] Comment on above: Performed By: #### U RNMAB #### [employer] [address] [place] [address] [phone] Spectrographic Analyst: Dexter Madera MD Triglyceride [Mass/Vol] 156 mg/dL High <150 [facility] Comment on above: Result Comment: Triglyceride Guidelines: <150 Desirable 150-199 Borderline 200-499 High >499 Very high Based on AHA Guidelines for fasting triglyceride, November 2011. Performed By: #### U RNMAB #### [employer] [address] [place] [address] Spectrographic Analyst: Dexter Madera MD CBC with Auto Differentialon 04-29-2022 Absolute Eos # 0.45 High [facility] [employer] Absolute Immature Granulocyte 0.05 [facility] [employer] Absolute Lymph # 1.93 [facility] [employer] Absolute [place] # 0.85 [facility] [employer] Basophils (Bld) [#/Vol] 0.13 10*3/uL [facility] Basophils/100 WBC (Bld) 1 % 0 - 2 % [facility] Eosinophils/100 WBC (Bld) 4 % 1 - 4 % [facility] Hematocrit (Bld) [Volume fraction] 42.9 % 40.7 - 50.3 % [facility] Hemoglobin (Bld) [Mass/Vol] 14.6 g/dL 13.0 - 17.0 g/dL [facility] Immature granulocytes/100 WBC (Bld) 1 % High 0 [facility] Interpretation and review of laboratory results Abnormal [facility] Lymphocytes/100 WBC (Bld) 19 % Low 24 - 43 % [facility] MCH (RBC) [Entitic mass] 29.9 pg 25.2 - 33.5 pg [facility] MCHC (RBC) [Mass/Vol] 34.0 g/dL 28.4 - 34.8 g/dL [facility] MCV (RBC) [Entitic vol] 87.9 fL 82.6 - 102.9 fL [facility] Monocytes/100 WBC (Bld) 8 % 3 - 12 % [facility] NRBC Automated 0.0 0.0 per 100 WBC [facility] Platelet distribution width (Bld) [Ratio] 13.7 % 11.8 - 14.4 % [facility] Platelet mean volume (Bld) [Entitic vol] 9.4 fL 8.1 - 13.5 fL [facility] Platelets (Bld) [#/Vol] 358 10*3/uL [facility] RBC (Bld) [#/Vol] 4.88 10*6/uL 4.21 - 5.7 7 m/uL [facility] Segmented neutrophils/100 WBC (Bld) 67 % High 36 - 65 % [facility] Segs Absolute 6.89 [facility] WBC (Bld) [#/Vol] 10.3 10*3/uL [facility] CBC with Diffon 04-29-2022 Abs. Basophil 0.13 k/uL Normal 0.00-0.20 [facility] Comment on above: Performed By: #### C P, CDP #### [facility] [address] [place] [address] [place] [address] Spectrographic Analyst: Barak Garcia MD Abs.Imm.Granulocyt e 0.05 k/uL Normal 0.00-0.30 [facility] Comment on above: Performed By: #### C P, CDP #### [facility] [address] [place] [address] [place] [address] Spectrographic Analyst: Barak Garcia MD Abs.Neutrophil (Seg) 6.89 k/uL Normal 1.50-8.10 [facility] Comment on above: Performed By: #### C P, CDP #### [facility] [address] [place] [address] [place] [address] Spectrographic Analyst: Barak Garcia MD Basophils/100 WBC (Bld) 1 % Normal 0-2 [facility] Comment on above: Performed By: #### C P, CDP #### [address] [place], [place] [address] Spectrographic Analyst: Barak Garcia MD Eosinophils (Bld) [#/Vol] 0.45 10*3/uL High 0.00-0.44 [facility] Comment on above: Performed By: #### C P, CDP #### [address] [place], [place] [address] Spectrographic Analyst: Barak Garcia MD Eosinophils/100 WBC (Bld) 4 % Normal 1-4 [facility] Comment on above: Performed By: #### C P, CDP #### [address] [place], [place] [address] Spectrographic Analyst: Barak Garcia MD Erythrocyte distribution width (RBC) [Ratio] 13.7 % Normal 11.8-14.4 [facility] Comment on above: Performed By: #### C P, CDP #### [address] [place], [facility]83 Spectrographic Analyst: Barak Garcia MD Hematocrit (Bld) [Volume fraction] 42.9 % Normal 40.7-50.3 [facility] Comment on above: Performed By: #### C P, CDP #### [facility] [address] [place], [facility]83 Spectrographic Analyst: Barak Garcia MD Hemoglobin (Bld) [Mass/Vol] 14.6 g/dL Normal 13.0-17.0 [facility] Comment on above: Performed By: #### C P, CDP #### [facility] [address] [place], [facility]83 Spectrographic Analyst: Barak Garcia MD Immature granulocytes/100 WBC (Bld) 1 % High 0 [facility] Comment on above: Performed By: #### C P, CDP #### [facility] [address] [place], [facility]83 Spectrographic Analyst: Barak Garcia MD Lymphocytes (Bld) [#/Vol] 1.93 10*3/uL Normal 1.10-3.70 [facility] Comment on above: Performed By: #### C P, CDP #### [address] [place], [facility]83 Spectrographic Analyst: Barak Garcia MD Lymphocytes/100 WBC (Bld) 19 % Low 24-43 [facility] Comment on above: Performed By: #### C P, CDP #### [facility] [address] [place] [address] Dr. [place], [place] [address] Spectrographic Analyst: Barak Garcia MD MCH (RBC) [Entitic mass] 29.9 pg Normal 25.2-33.5 [facility] Comment on above: Performed By: #### C P, CDP #### [facility] [address] [place], [facility]83 Spectrographic Analyst: Barak Garcia MD MCHC (RBC) [Mass/Vol] 34.0 g/dL Normal 28.4-34.8 [facility] Comment on above: Performed By: #### C P, CDP #### [facility] [address] [place], [place] [phone] Spectrographic Analyst: Barak Garcia MD MCV (RBC) [Entitic vol] 87.9 fL Normal 82.6-102.9 [facility] Comment on above: Performed By: #### C P, CDP #### [address] [place], [place] [phone] Spectrographic Analyst: Barak Garcia MD Monocytes (Bld) [#/Vol] 0.85 10*3/uL Normal 0.10-1.20 [facility] Comment on above: Performed By: #### C P, CDP #### [address] [place], [place] 0116183 Spectrographic Analyst: Barak Garcia MD Monocytes/100 WBC (Bld) 8 % Normal 3-12 [facility] Comment on above: Performed By: #### C P, CDP #### [address] [place], [place] [phone] Spectrographic Analyst: Barak Garcia MD Neutrophil (Seg) 67 % High 36-65 [facility] Comment on above: Performed By: #### C P, CDP #### [address] [place], [place] [phone] Spectrographic Analyst: Barak Garcia MD NRBC Automated 0.0 per 100 WBC Normal 0.0 [facility] Comment on above: Performed By: #### C P, CDP #### [address] [place], [place] [phone] Spectrographic Analyst: Barak Garcia MD Platelet mean volume (Bld) [Entitic vol] 9.4 fL Normal 8.1-13.5 [facility] Comment on above: Performed By: #### C P, CDP #### [address] [place] [address] Spectrographic Analyst: Barak Garcia MD Platelets (Bld) [#/Vol] 358 10*3/uL Normal 138-453 [facility] Comment on above: Performed By: #### C P, CDP #### [facility] [address] [place] [address] Spectrographic Analyst: Barak Garcia MD RBC (Bld) [#/Vol] 4.88 10*6/uL Normal 4.21-5.77 [facility] Comment on above: Performed By: #### C P, CDP #### [facility] [address] [place], [place] [phone] Spectrographic Analyst: Barak Garcia MD WBC (Bld) [#/Vol] 10.3 10*3/uL Normal 3.5-11.3 [facility] Comment on above: Performed By: #### C P, CDP #### [facility] [address] [place], [place] 1566583 Spectrographic Analyst: Barak Garcia MD Comp Metabolic Profon 2022 Albumin [Mass/Vol] 4.0 g/dL Normal 3.5-5.2 [facility] Comment on above: Performed By: #### C P, CDP #### [facility] [address] [place], [place] [phone] Spectrographic Analyst: Barak Garcia MD Albumin/Glob Ratio 1.1 Normal 1.0-2.5 [facility] Comment on above: Performed By: #### C P, CDP #### [facility] [address] [place], [place] 7438383 Spectrographic Analyst: Barak Garcia MD Alkaline Phos 75 U/L Normal 40-129 [facility] Comment on above: Performed By: #### C P, CDP #### [facility] [address] [place] [address] Spectrographic Analyst: Barak Garcia MD ALT [Catalytic activity/Vol] 33 U/L Normal 5-41 [facility] Comment on above: Performed By: #### C P, CDP #### [facility] [address] [place], [place] [phone] Spectrographic Analyst: Barak Garcia MD Anion gap [Moles/Vol] 8 mmol/L Low 9-17 [facility] Comment on above: Performed By: #### C P, CDP #### [facility] [address] [place], [place] [phone] Spectrographic Analyst: Barak Garcia MD AST [Catalytic activity/Vol] 29 U/L Normal <40 [facility] Comment on above: Performed By: #### C P, CDP #### [facility] [address] [place], [place] [phone] Spectrographic Analyst: Barak Garcia MD Bilirubin [Mass/Vol] 0.4 mg/dL Normal 0.3-1.2 [facility] Comment on above: Performed By: #### C P, CDP #### [facility] [address] [place], [place] 6162383 Spectrographic Analyst: Barak Garcia MD BUN/CRE Ratio 18 Normal 9-20 [facility] Comment on above: Performed By: #### C P, CDP #### [facility] [address] [place], [place] [phone] Spectrographic Analyst: Barak Garcia MD Calcium [Mass/Vol] 9.7 mg/dL Normal 8.6-10.4 [facility] Comment on above: Performed By: #### C P, CDP #### [facility] [address] [place], [place] 6088383 Spectrographic Analyst: Barak Garcia MD Chloride [Moles/Vol] 100 mmol/L Normal 98-107 [facility] Comment on above: Performed By: #### C P, CDP #### [facility] [address] [place], [place] [phone] Spectrographic Analyst: Barak Garcia MD CO2 [Moles/Vol] 30 mmol/L Normal 20-31 [facility] Comment on above: Performed By: #### C P, CDP #### [facility] [address] [place] [address] Spectrographic Analyst: Barak Garcia MD Creatinine [Mass/Vol] 0.79 mg/dL Normal 0.70-1.20 [facility] Comment on above: Performed By: #### C P, CDP #### [facility] [address] [place] [address] Spectrographic Analyst: Barak Garcia MD GFR/1.73 sq M.predicted among non-blacks MDRD (S/P/Bld) [Vol rate/Area] mL/min/{1.73_m2} Normal >60 [facility] Comment on above: Result Comment: These results [...] Performed By: #### C P, CDP #### [address] [place] [address] Spectrographic Analyst: Barak Garcia MD Glucose [Mass/Vol] 191 mg/dL High 70-99 [facility] Comment on above: Performed By: #### C P, CDP #### [facility] [address] [place] [address] Spectrographic Analyst: Barak Garcia MD Potassium [Moles/Vol] 4.2 mmol/L Normal 3.7-5.3 [facility] Comment on above: Performed By: #### C P, CDP #### [address] [place] [address] Spectrographic Analyst: Barak Garcia MD Protein [Mass/Vol] 7.5 g/dL Normal 6.4-8.3 [facility] Comment on above: Performed By: #### C P, CDP #### [facility] [address] [place] [address] Spectrographic Analyst: Barak Garcia MD Sodium [Moles/Vol] 138 mmol/L Normal 135-144 [facility] Comment on above: Performed By: #### C P, CDP #### [facility] [address] [place] [address] Spectrographic Analyst: Barak Garcia MD Urea nitrogen [Mass/Vol] 14 mg/dL Normal 8-23 [facility] Comment on above: Performed By: #### C P, CDP #### [facility] [address] [place] [address] Spectrographic Analyst: Barak Garcia MD Comprehensive Metabolic Pane [facility] 04-29-2022 Albumin [Mass/Vol] 4 g/dL 3.5 - 5.2 g/dL [facility] Albumin/Globulin [Mass ratio] 1.1 {ratio} 1.0 - 2.5 [facility] ALP [Catalytic activity/Vol] 75 U/L 40 - 129 U/L [facility] ALT [Catalytic activity/Vol] 33 U/L 5 - 41 U/L [facility] Anion gap [Moles/Vol] 8 mmol/L Low 9 - 17 mmol/L [facility] AST [Catalytic activity/Vol] 29 U/L NINF - 40 U/L [facility] Bilirubin [Mass/Vol] 0.4 mg/dL 0.3 - 1.2 mg/dL [facility] Calcium [Mass/Vol] 9.7 mg/dL 8.6 - 10. 4 mg/dL [facility] Chloride [Moles/Vol] 100 mmol/L 98 - 107 mmol/L [facility] CO2 [Moles/Vol] 30 mmol/L 20 - 31 mmol/L [facility] Creatinine [Mass/Vol] 0.79 mg/dL 0.70 - 1.20 mg/dL [facility] GFR/1.73 sq M.predicted MDRD (S/P/Bld) [Vol rate/Area] - PINF [facility] Comment on above: These results are [...] 191 mg/dL High 70 - 99 mg/dL [facility] Interpretation and review of laboratory results Abnormal [facility] Potassium [Moles/Vol] 4.2 mmol/L 3.7 - 5.3 mmol/L [facility] Protein [Mass/Vol] 7.5 g/dL 6.4 - 8.3 g/dL [facility] Sodium [Moles/Vol] 138 mmol/L 135 - 144 mmol/L [facility] Urea nitrogen [Mass/Vol] 14 mg/dL 8 - 23 mg/dL [facility] [employer] Urea nitrogen/Creatinin e (Bld) [Mass ratio] 18 9 - 20 [facility] GeneticsUNC [facility] NASHSpiral GeneticsSELECT [facility] Lipid Panelon 04-29-2022 Cholesterol [Mass/Vol] 167 mg/dL NINF - 200 mg/dL [facility] Comment on above: Cholesterol Guidelines: <200 Desirable 200-240 Borderline >240 Undesirable Cholesterol in HDL [Mass/Vol] 39 mg/dL Low 40 - PINF mg/dL [facility] Comment on above: HDL Guidelines: <40 Undesirable 40-59 Borderline >59 Desirable Cholesterol in LDL [Mass/Vol] 97 mg/dL 0 - 130 mg/dL [facility] Comment on above: LDL Guidelines: <100 Desirable 100-129 Near to/above Desirable 130-159 Borderline >159 Undesirable Direct (measured) LDL and calculated LDL are not interchangeable tests. Cholesterol.total/ Cholesterol in HDL [Mass ratio] 4.3 {ratio} NINF - 5 [facility] Interpretation and review of laboratory results Abnormal [facility] Triglyceride [Mass/Vol] 156 mg/dL High NINF - 150 mg/dL [facility] Comment on above: Triglyceride Guidelines: <150 Desirable 150-199 Borderline 200-499 High >499 Very high Based on AHA Guidelines for fasting triglyceride, November 2011. [facility] TSHon 04-29-2022 TSH Qn 3.05 m[IU]/L [facility] Thyroid Stim. Horm.on 2022 Thyroid Stim. Horm. 3.05 uIU/mL Normal 0.30-5.00 [facility] Comment on above: Performed By: #### T SH #### [facility] [address] [place] [address] Spectrographic Analyst: Barak Garcia MD Basic Metabolic Panelon 06-23 Anion gap [Moles/Vol] 10 mmol/L 9 - 17 mmol/L [facility] Calcium [Mass/Vol] 9.7 mg/dL 8.6 - 10. 4 mg/dL [facility] Chloride [Moles/Vol] 102 mmol/L 98 - 107 mmol/L [facility] CO2 [Moles/Vol] 27 mmol/L 20 - 31 mmol/L [facility] Creatinine [Mass/Vol] 0.62 mg/dL Low 0.70 - 1.20 mg/dL [facility] GFR >60 >60 mL/min [facility] GFR Non- >60 >60 mL/min [facility] Glucose [Mass/Vol] 192 mg/dL High 70 - 99 mg/dL [facility] Interpretation and review of laboratory results Abnormal [facility] Potassium [Moles/Vol] 4.0 mmol/L 3.7 - 5.3 mmol/L [facility] Sodium [Moles/Vol] 139 mmol/L 135 - 144 mmol/L [facility] Urea nitrogen (BldV) [Mass/Vol] 11 mg/dL 8 - 23 mg/dL [facility] Urea nitrogen/Creatinin e (Bld) [Mass ratio] 18 [facility] CBC with Auto Differentialon 07-21-2021 Absolute Eos # 0.[address] [facility] Absolute Immature Granulocyte 0.04 [facility] Absolute Lymph # 2.29 [facility] Absolute [place] # 0.86 [facility] Basophils (Bld) [#/Vol] 0.11 10*3/uL [facility] Basophils/100 WBC (Bld) 1 % 0 - 2 % [facility] Eosinophils/100 WBC (Bld) 4 % 1 - 4 % [facility] Hematocrit (Bld) [Volume fraction] 43.6 % 40.7 - 50.3 % [facility] Hemoglobin.gastroi ntestinal spec 1 Ql (Stl) 14.3 g/dL 13.0 - 17.0 g/dL [facility] Immature granulocytes/100 WBC (Bld) 0 % 0 [facility] Interpretation and review of laboratory results Abnormal [facility] Lymphocytes/100 WBC (Bld) 21 % Low 24 - 43 % [facility] MCH (RBC) [Entitic mass] 29.2 pg 25.2 - 33.5 pg [facility] MCHC (RBC) [Mass/Vol] 32.8 g/dL 28.4 - 34.8 g/dL [facility] MCV (RBC) [Entitic vol] 89.0 fL 82.6 - 102.9 fL [facility] Monocytes/100 WBC (Bld) 8 % 3 - 12 % [facility] NRBC Automated 0.0 0.0 per 100 WBC [facility] Platelet distribution width (Bld) [Ratio] 13.7 % 11.8 - 14.4 % [facility] Platelet mean volume (Bld) [Entitic vol] 9.6 fL 8.1 - 13.5 fL [facility] Platelets (Bld) [#/Vol] 392 10*3/uL [facility] RBC (Bld) [#/Vol] 4.90 10*6/uL 4.21 - 5.7 7 m/uL [facility] Segmented neutrophils/100 WBC (Bld) 66 % High 36 - 65 % [facility] Segs Absolute 7.34 [facility] WBC (Bld) [#/Vol] 11.1 10*3/uL [facility] Laboratory - Chemistry and C hemistry - challengeon 07-21-2021 GFR/1.73 sq M.predicted MDRD (S/P/Bld) [Vol rate/Area] [facility] Comment on above: Average GFR for 60-6 9 years old: 85 mL/min/1.73sq m Chronic Kidney Disease: <60 mL/min/1.73sq m Kidney failure: <15 mL/min/1.73sq m eGFR calculated using average adult body mass. Additional eGFR calculator available at: http://www.[employer]/multiple_crcl_2012.htm Stage 1: Some kidney damage normal GFR Stage 2: Mild kidney damage GFR 60-89 Stage 3: Moderate kidney damage GFR 30-59 Stage 4: Severe kidney damage GFR 15-29 Stage 5: Severe kidney damage GFR <15 ESRD - chronic treatment by dialysis or transplant CBC with Auto Differentialon 06-01-2021 Absolute Eos # 0.62 High [facility] th Absolute Immature Granulocyte 0.05 [facility] Absolute Lymph # 2.36 [facility] alth Absolute [place] # 0.78 [facility] lth Basophils (Bld) [#/Vol] 0.12 10*3/uL [facility] Basophils/100 WBC (Bld) 1 % 0 - 2 % [facility] Eosinophils/100 WBC (Bld) 6 % High 1 - 4 % [facility] Hematocrit (Bld) [Volume fraction] 44.6 % 40.7 - 50.3 % [facility] Hemoglobin.gastroi ntestinal spec 1 Ql (Stl) 14.4 g/dL 13.0 - 17.0 g/dL [facility] Immature granulocytes/100 WBC (Bld) 1 % High 0 [facility] Interpretation and review of laboratory results Abnormal [facility] Lymphocytes/100 WBC (Bld) 24 % 24 - 43 % [facility] MCH (RBC) [Entitic mass] 28.7 pg 25.2 - 33.5 pg [facility] MCHC (RBC) [Mass/Vol] 32.3 g/dL 28.4 - 34.8 g/dL [facility] MCV (RBC) [Entitic vol] 89.0 fL 82.6 - 102.9 fL [facility] Monocytes/100 WBC (Bld) 8 % 3 - 12 % [facility] NRBC Automated 0.0 0.0 per 100 WBC [facility] Platelet distribution width (Bld) [Ratio] 13.9 % 11.8 - 14.4 % [facility] Platelet mean volume (Bld) [Entitic vol] 9.3 fL 8.1 - 13.5 fL [facility] Platelets (Bld) [#/Vol] 378 10*3/uL [facility] RBC (Bld) [#/Vol] 5.01 10*6/uL 4.21 - 5.7 7 m/uL [facility] Segmented neutrophils/100 WBC (Bld) 60 % 36 - 65 % [facility] Segs Absolute 5.92 [facility] W[facility] (Bld) [#/Vol] 9.9 10*3/uL [facility] Comprehensive Metabolic Pane jesus 06-01-2021 Albumin [Mass/Vol] 4.2 g/dL 3.5 - 5.2 g/dL [facility] Albumin/Globulin [Mass ratio] 1.4 {ratio} [facility] ALP (Bld) [Catalytic activity/Vol] 75 U/L 40 - 129 U/L [facility] ALT [Catalytic activity/Vol] 43 U/L High 5 - 41 U/L [facility] Anion gap [Moles/Vol] 13 mmol/L 9 - 17 mmol/L [facility] AST [Catalytic activity/Vol] 32 U/L <40 [facility] Bilirubin [Mass/Vol] 0.45 mg/dL 0.3 - 1.2 mg/dL [facility] Calcium [Mass/Vol] 9.8 mg/dL 8.6 - 10. 4 mg/dL [facility] Chloride [Moles/Vol] 101 mmol/L 98 - 107 mmol/L [facility] CO2 [Moles/Vol] 24 mmol/L 20 - 31 mmol/L [facility] Creatinine [Mass/Vol] 0.79 mg/dL 0.70 - 1.20 mg/dL [facility] Free PSA/Total PSA [Mass fraction] 7.3 g/dL 6.4 - 8.3 g/dL [facility] GFR >60 >60 mL/min [facility] GFR Non- >60 >60 mL/min [facility] Glucose [Mass/Vol] 244 mg/dL High 70 - 99 mg/dL [facility] Interpretation and review of laboratory results Abnormal [facility] Potassium [Moles/Vol] 3.8 mmol/L 3.7 - 5.3 mmol/L [facility] Sodium [Moles/Vol] 138 mmol/L 135 - 144 mmol/L [facility] Urea nitrogen (BldV) [Mass/Vol] 13 mg/dL 8 - 23 mg/dL [facility] Urea nitrogen/Creatinin e (Bld) [Mass ratio] 16 [facility] Laboratory - Chemistry and C hemistry - challengeon 06-01-2021 GFR/1.73 sq M.predicted MDRD (S/P/Bld) [Vol rate/Area] [facility] Comment on above: Average GFR for 60-6 9 years old: 85 mL/min/1.73sq m Chronic Kidney Disease: <60 mL/min/1.73sq m Kidney failure: <15 mL/min/1.73sq m eGFR calculated using average adult body mass. Additional eGFR calculator available at: http://www.[employer]/multiple_crcl_2012.htm Stage 1: Some kidney damage normal GFR Stage 2: Mild kidney damage GFR 60-89 Stage 3: Moderate kidney damage GFR 30-59 Stage 4: Severe kidney damage GFR 15-29 Stage 5: Severe kidney damage GFR <15 ESRD - chronic treatment by dialysis or transplant Lipid Panelon 06-01-2021 Cholesterol [Mass/Vol] 148 mg/dL <200 [facility] Comment on above: Cholesterol Guidelines: <200 Desirable 200-240 Borderline >240 Undesirable Cholesterol in HDL [Mass/Vol] 35 mg/dL Low >40 [facility] Comment on above: HDL Guidelines: <40 Undesirable 40-59 Borderline >59 Desirable Cholesterol in LDL [Mass/Vol] 80 mg/dL 0 - 130 mg/dL [facility] Comment on above: LDL Guidelines: <100 Desirable 100-129 Near to/above Desirable 130-159 Borderline >159 Undesirable Direct (measured) LDL and calculated LDL are not interchangeable tests. Cholesterol.total/ Cholesterol in HDL [Mass ratio] 4.2 {ratio} <5 [facility] Interpretation and review of laboratory results Abnormal [facility] Triglyceride [Mass/Vol] 164 mg/dL High <150 [facility] Comment on above: Triglyceride Guidelines: <150 Desirable 150-199 Borderline 200-499 High >499 Very high Based on AHA Guidelines for fasting triglyceride, November 2011. [facility] PSA Screeningon 06-01-2021 [facility] CBC Auto Differentialon 12-22 Basophils (Bld) [#/Vol] 0.14 10*3/uL [place] Basophils/100 WBC (Bld) 1 % 0 - 2 % [place] Differential Type NOT REPORTED [place] Eosinophils (Bld) [#/Vol] 0.56 10*3/uL [place] Eosinophils/100 WBC (Bld) 5 % High 1 - 4 % [place] Erythrocyte distribution width (RBC) [Ratio] 13.9 % 11.8 - 14.4 % [place] Hematocrit (Bld) [Volume fraction] 43.8 % 40.7 - 50.3 % [place] Hemoglobin (Bld) [Mass/Vol] 13.9 g/dL 13 - 17 g/dL [place] Immature granulocytes (Bld) [#/Vol] 0.06 10*3/uL [place] Immature granulocytes (Bld) [#/Vol] 1 % High 0 [place] Interpretation and review of laboratory results Abnormal [place] Lymphocytes (Bld) [#/Vol] 2.18 10*3/uL [place] Lymphocytes/100 WBC (Bld) 19 % Low 24 - 43 % [place] MCH (RBC) [Entitic mass] 28.7 pg 25.2 - 33.5 pg [place] MCHC (RBC) [Mass/Vol] 31.7 g/dL 28.4 - 34.8 g/dL [place] MCV (RBC) [Entitic vol] 90.5 fL 82.6 - 102.9 fL [place] Monocytes (Bld) [#/Vol] 0.87 10*3/uL [place] Monocytes/100 WBC (Bld) 8 % 3 - 12 % [place] Platelet mean volume (Bld) [Entitic vol] 8.9 fL 8.1 - 13.5 fL [place] Platelets (Bld) [#/Vol] NOT REPORTED [place] Platelets (Bld) [#/Vol] 376 10*3/uL [place] RBC (Bld) [#/Vol] 4.84 10*6/uL 4.21 - 5.7 7 m/uL [place] RBC morphology finding Nom (Bld) NOT REPORTED [place] Segmented neutrophils/100 WBC (Bld) 66 % High 36 - 65 % [place] Segs Absolute 7.52 [place] WBC (Bld) [#/Vol] 0.0 10*3/uL 0.0 per 10 0 WBC [place] WBC (Bld) [#/Vol] 11.3 10*3/uL [place] WBC Morphology NOT REPORTED [place] Comprehensive Metabolic Pane jesus 01-08-2020 Albumin [Mass/Vol] 4.4 g/dL 3.5 - 5.2 g/dL [place] Albumin/Globulin [Mass ratio] 1.4 {ratio} [place] ALP [Catalytic activity/Vol] 63 U/L 40 - 129 U/L [place] ALT [Catalytic activity/Vol] 35 U/L 5 - 41 U/L [place] Anion gap [Moles/Vol] 14 mmol/L 9 - 17 mmol/L [place] AST [Catalytic activity/Vol] 31 U/L <40 [place] Bilirubin Ql (U) 0.30 mg/dL 0.3 - 1.2 mg/dL [place] Bun/Cre Ratio 20 [place] Calcium [Mass/Vol] 10.0 mg/dL 8.6 - 10. 4 mg/dL [place] Chloride [Moles/Vol] 99 mmol/L 98 - 107 mmol/L [place] CO2 [Moles/Vol] 24 mmol/L 20 - 31 mmol/L [place] Creatinine [Mass/Vol] 0.71 mg/dL 0.7 - 1.2 mg/dL [place] GFR >60 >60 mL/min [place] GFR Non- >60 >60 mL/min [place] Glucose [Mass/Vol] 225 mg/dL High 70 - 99 mg/dL [place] Interpretation and review of laboratory results Abnormal [place] Potassium [Moles/Vol] 4.0 mmol/L 3.7 - 5.3 mmol/L [place] Protein [Mass/Vol] 7.5 g/dL 6.4 - 8.3 g/dL [place] Sodium [Moles/Vol] 137 mmol/L 135 - 144 mmol/L [place] Urea nitrogen [Mass/Vol] 14 mg/dL 8 - 23 mg/dL [place] Lipid Panelon 01-08-2020 Cholesterol [Mass/Vol] 144 mg/dL <200 [place] Comment on above: Cholesterol Guidelines: <200 Desirable 200-240 Borderline >240 Undesirable Cholesterol in HDL [Mass/Vol] 34 mg/dL Low >40 [place] Comment on above: HDL Guidelines: <40 Undesirable 40-59 Borderline >59 Desirable Cholesterol in LDL [Mass/Vol] 84 mg/dL 0 - 130 mg/dL [place] Comment on above: LDL Guidelines: <100 Desirable 100-129 Near to/above Desirable 130-159 Borderline >159 Undesirable Direct (measured) LDL and calculated LDL are not interchangeable tests. Cholesterol in VLDL [Mass/Vol] NOT REPORTED 1 - 30 mg/dL [place] Cholesterol.total/ Cholesterol in HDL [Mass ratio] 4.2 {ratio} <5 [place] Interpretation and review of laboratory results Abnormal [place] Triglyceride [Mass/Vol] 130 mg/dL <150 [place] Comment on above: Triglyceride Guidelines: <150 Desirable 150-199 Borderline 200-499 High >499 Very high Based on AHA Guidelines for fasting triglyceride, November 2011. Metabolic Panelon 01-08-2020 GFR/1.73 sq M predicted among non-blacks MDRD (S/P/Bld) [Vol rate/Area] [place] Comment on above: Stage 1: Some [...] body mass. Additional eGFR calculator available at: http://www.[employer]/multiple_crcl_2012.htm Microalbumin, Uron 0 Albumin/Creatinine DL <= 20 mg/L (24H U) [Mass ratio] 53 mg/L High <21 [place] Albumin/Creatinine DL <= 20 mg/L (U) [Ratio] 28 High <17 mcg/mg creat [place] Creatinine [Mass/Vol] 189.9 mg/dL 39 - 259 mg/dL [place] Interpretation and review of laboratory results Abnormal [place] Cult,Aerobe/Anaerobeon 01-14 Cult,Aerobe/Anaero be Specimen Description [...] Trimethoprim/Sulfa <=20 SUSCEPTIBLE Piperacillin/Tazobactam <=4 SUSCEPTIBLE Normal [facility] Comment on above: Performed By: #### A ANC #### [facility] [address] [place] [address] Spectrographic Analyst: Dexter Madera MD [facility] [address] [place] [address] Spectrographic Analyst: Morgan nAdino MD CBC auto differentialon 12-23 Basophils (Bld) [#/Vol] 0.10 10*3/uL [place] Basophils/100 WBC (Bld) 1 % 0 - 2 % [place] Differential Type YES [place] Eosinophils (Bld) [#/Vol] 0.10 10*3/uL [place] Eosinophils/100 WBC (Bld) 1 % 0 - 5 % [place] Erythrocyte distribution width (RBC) [Ratio] 13.9 % 12.1 - 15.2 % [place] Hematocrit (Bld) [Volume fraction] 40.3 % Low 41 - 53 % [place] Hemoglobin (Bld) [Mass/Vol] 13.5 g/dL 13.5 - 17.5 g/dL [place] Interpretation and review of laboratory results Abnormal [place] Lymphocytes (Bld) [#/Vol] 1.40 10*3/uL [place] Lymphocytes/100 WBC (Bld) 11 % Low 13 - 44 % [place] MCH (RBC) [Entitic mass] 28.9 pg 26 - 34 pg [place] MCHC (RBC) [Mass/Vol] 33.5 g/dL 31 - 37 g/dL [place] MCV (RBC) [Entitic vol] 86.1 fL 80 - 100 fL [place] Monocytes (Bld) [#/Vol] 1.10 10*3/uL [place] Monocytes/100 WBC (Bld) 9 % 5 - 9 % [place] Platelet mean volume (Bld) [Entitic vol] NOT REPORTED 6 - 12 fL [place] Platelets (Bld) [#/Vol] 317 10*3/uL [place] Platelets (Bld) [#/Vol] NOT REPORTED [place] RBC (Bld) [#/Vol] 4.68 10*6/uL 4.5 - 5.9 m/uL [place] RBC morphology finding Nom (Bld) NOT REPORTED [place] Segmented neutrophils/100 WBC (Bld) 78 % High 39 - 75 % [place] Segs Absolute 9.70 High [place] WBC (Bld) [#/Vol] NOT REPORTED per 100 WBC [place] WBC (Bld) [#/Vol] 12.3 10*3/uL [place] WBC Morphology NOT REPORTED [place] CBC with Diffon 01-12-2019 Abs. Basophil 0.10 k/uL Normal 0.0-0.2 [facility] Comment on above: Performed By: #### C DP #### [facility] [address] [place] [address] Spectrographic Analyst: Morgan Andino MD Abs.Neutrophil (Seg) 9.70 k/uL High 2.1-6.5 [facility] Comment on above: Performed By: #### C DP #### [facility] [address] [place] [address] Spectrographic Analyst: Morgan Andino MD Auto Diff Performed YES Normal [facility] Comment on above: Performed By: #### C DP #### [facility] [address] [place] [address] Spectrographic Analyst: Morgan Andino MD Basophils/100 WBC (Bld) 1 % Normal 0-2 [facility] Comment on above: Performed By: #### C DP #### [facility] [address] [place] [address] Spectrographic Analyst: Morgan Andino MD Eosinophils (Bld) [#/Vol] 0.10 10*3/uL Normal 0.0-0.4 [facility] Comment on above: Performed By: #### C DP #### [facility] [address] [place] [address] Spectrographic Analyst: Morgan Andino MD Eosinophils/100 WBC (Bld) 1 % Normal 0-5 [facility] Comment on above: Performed By: #### C DP #### [facility] [address] [place] [address] Spectrographic Analyst: Morgan Andino MD Erythrocyte distribution width (RBC) [Ratio] 13.9 % Normal 12.1-15.2 [facility] Comment on above: Performed By: #### C DP #### [facility] [address] [place] [address] Spectrographic Analyst: Morgan Andino MD Hematocrit (Bld) [Volume fraction] 40.3 % Low 41-53 [facility] Comment on above: Performed By: #### C DP #### [facility] [address] [place] [address] Spectrographic Analyst: Morgan Andino MD Hemoglobin (Bld) [Mass/Vol] 13.5 g/dL Normal 13.5-17.5 [facility] Comment on above: Performed By: #### C DP #### [facility] [address] [place] [address] Spectrographic Analyst: Morgan Andino MD Lymphocytes (Bld) [#/Vol] 1.40 10*3/uL Normal 1.0-4.8 [facility] Comment on above: Performed By: #### C DP #### [facility] [address] [place] [address] Spectrographic Analyst: Morgan Andino MD Lymphocytes/100 WBC (Bld) 11 % Low 13-44 [facility] Comment on above: Performed By: #### C DP #### [facility] [address] [place] [address] (061) Spectrographic Analyst: Morgan Andino MD MCH (RBC) [Entitic mass] 28.9 pg Normal 26-34 [facility] Comment on above: Performed By: #### C DP #### [facility] [address] [place] [address] Spectrographic Analyst: Morgan Andino MD MCHC (RBC) [Mass/Vol] 33.5 g/dL Normal 31-37 [facility] Comment on above: Performed By: #### C DP #### [facility] [address] [place] [address] Spectrographic Analyst: Morgan Andino MD MCV (RBC) [Entitic vol] 86.1 fL Normal 80-100 [facility] Comment on above: Performed By: #### C DP #### [facility] [address] [place] [address] Spectrographic Analyst: Morgan Andino MD Monocytes (Bld) [#/Vol] 1.10 10*3/uL High 0.0-1.0 [facility] Comment on above: Performed By: #### C DP #### [facility] [address] [place] [address] Spectrographic Analyst: Morgan Andino MD Monocytes/100 WBC (Bld) 9 % Normal 5-9 [facility] Comment on above: Performed By: #### C DP #### [facility] [address] [place] [address] Spectrographic Analyst: Morgan Andino MD Neutrophil (Seg) 78 % High 39-75 [facility] Comment on above: Performed By: #### C DP #### [facility] [address] [place] [address] Spectrographic Analyst: Morgan Andino MD Platelets (Bld) [#/Vol] 317 10*3/uL Normal 140-450 [facility] Comment on above: Performed By: #### C DP #### [facility] [address] [place] [address] Spectrographic Analyst: Morgan Andino MD RBC (Bld) [#/Vol] 4.68 10*6/uL Normal 4.5-5.9 [facility] Comment on above: Performed By: #### C DP #### [facility] [address] [place] [address] Spectrographic Analyst: Morgan Andino MD WBC (Bld) [#/Vol] 12.3 10*3/uL High 3.5-11.0 [facility] Comment on above: Performed By: #### C DP #### [facility] [address] [place] [address] Spectrographic Analyst: Morgan Andino MD Abs.Imm.Granulocyt e NOT REPORTED Normal 0.00-0.30 [facility] Comment on above: Performed By: #### C DP #### [facility] [address] [place] [address] Spectrographic Analyst: Morgan Andino MD Immature granulocytes (Bld) [#/Vol] NOT REPORTED Normal 0 [facility] Comment on above: Performed By: #### C DP #### [facility] [address] [place] [address] Spectrographic Analyst: Morgan Andino MD NRBC Automated NOT REPORTED Normal [facility] Comment on above: Performed By: #### C DP #### [facility] [address] [place] [address] Spectrographic Analyst: Morgan Andino MD Platelet mean volume (Bld) [Entitic vol] NOT REPORTED Normal 6.0-12.0 [facility] Comment on above: Performed By: #### C DP #### [facility] [address] [place] [address] Spectrographic Analyst: Morgan Andino MD Platelets (Bld) [#/Vol] NOT REPORTED Normal [facility] Comment on above: Performed By: #### C DP #### [facility] [address] [place] [address] Spectrographic Analyst: Morgan Andino MD RBC morphology finding Nom (Bld) NOT REPORTED Normal [facility] Comment on above: Performed By: #### C DP #### [facility] [address] [place] [address] Spectrographic Analyst: Morgan Andino MD WBC Morphology NOT REPORTED Normal [facility] Comment on above: Performed By: #### C DP #### [facility] [address] [place] [address] Spectrographic Analyst: Morgan Andino MD Glucose, Whole Bloodon 01-12 Glucose [Mass/Vol] 242 mg/dL High 65 - 99 mg/dL [place] Interpretation and review of laboratory results Abnormal [place] Glucose [Mass/Vol] 261 mg/dL High 65 - 99 mg/dL [place] Interpretation and review of laboratory results Abnormal [place] OPERATIVE REPORTon 9 OPERATIVE REPORT [facility] [address] [place] [address] OPERATIVE REPORT PATIENT NAME: KWABENA AKERS : 1950 MED REC NO: [id number] ROOM: ACCOUNT NO: [id number] ADMIT DATE: 01/12/2019 PROVIDER: Jessica Cooper DATE [...] gluteal/perianal abscess fluid for culture. DRAINS: A Assonet with half-inch Nu Gauze. COMPLICATIONS: None. DISPOSITION: [...] for the consultation. JESSICA COOPER [id number] Doc#: [id number] CC: Phil Molina Eric [facility] Otheron 01-12-2019 Immature granulocytes (Bld) [#/Vol] NOT REPORTED 0 % [place] Hemoglobin A1Con 09-25-2017 Glucose mass conc 197 mg/dL [facility] Comment on above: Result Comment: The ADA and AACC recommend providing the estimated average glucose result to permit better patient understanding of their HBA1c result. Performed By: #### C DP, BMP, LIPR, GLYHGB ####[facility] [address] [place], [place] [id number] Hemoglobin A1c/Hemoglobin.tot al mass fraction (Bld) 8.5 % High 4.0-6.0 [facility] Comment on above: Performed By: #### C DP, BMP, LIPR, GLYHGB ####[facility] [address] [place], [place] [id number] Basic Metabolic Profon 09-22 (cont.) [facility] Comment on above: Result Comment: Aver age GFR for 60-69 years old: 85 mL/min/1.73sq mChronic Kidney Disease: <60 mL/min/1.73sq mKidney failure: <15 mL/min/1.73sq meGFR calculated using average adult body mass. Additional eGFR calculator available at:http://www.Digital Lumens.com/multiple_crcl_2012.htm Performed By: #### C DP, BMP, LIPR, GLYHGB ####[address] [place] [address] Anion gap 3 molar conc 14 mmol/L Normal 9-17 [facility] Comment on above: Performed By: #### C DP, BMP, LIPR, GLYHGB ####[address] [place] [address] Calcium mass conc 9.2 mg/dL Normal 8.6-10.4 [facility] Comment on above: Performed By: #### C DP, BMP, LIPR, GLYHGB ####[address] [address] Chloride molar conc 99 mmol/L Normal 98-107 [facility] Comment on above: Performed By: #### C DP, BMP, LIPR, GLYHGB ####[address] [address] CO2 molar conc 25 mmol/L Normal 20-31 [facility] Comment on above: Performed By: #### C DP, BMP, LIPR, GLYHGB ####[address] [address] Creatinine mass conc 0.58 mg/dL Low 0.70-1.20 [facility] Comment on above: Performed By: #### C DP, BMP, LIPR, GLYHGB ####[address] [place] [address] GFR, Amer >60 Normal >60 [facility] Comment on above: Performed By: #### C DP, BMP, LIPR, GLYHGB ####[address] [address] GFR,non Amer >60 Normal >60 [facility] Comment on above: Performed By: #### C DP, BMP, LIPR, GLYHGB ####[facility] [address] [place] [address] Glucose mass conc 144 mg/dL High 70-99 [facility] Comment on above: Performed By: #### C DP, BMP, LIPR, GLYHGB ####[facility] [address] [place] [address] Potassium molar conc 3.8 mmol/L Normal 3.7-5.3 [facility] Comment on above: Performed By: #### C DP, BMP, LIPR, GLYHGB ####[address] [place] [address] Sodium molar conc 138 mmol/L Normal 135-144 [facility] Comment on above: Performed By: #### C DP, BMP, LIPR, GLYHGB ####[facility] [address] [place] [address] Urea nitrogen mass conc 12 mg/dL Normal 8-23 [facility] Comment on above: Performed By: #### C DP, BMP, LIPR, GLYHGB ####[address] [place] [address] BUN/CRE Ratio NOT REPORTED Normal 9-20 [facility] Comment on above: Performed By: #### C DP, BMP, LIPR, GLYHGB ####[facility] [address] [place] [address] Staging: NOT REPORTED Normal [facility] Comment on above: Performed By: #### C DP, BMP, LIPR, GLYHGB ####[address] [place] [address] CBC with Diffon 09-22-2017 Abs. Basophil 0.14 k/uL Normal 0.00-0.20 [facility] Comment on above: Performed By: #### C DP, BMP, LIPR, GLYHGB ####[address] [address] Abs.Imm.Granulocyt e 0.06 k/uL Normal 0.00-0.30 [facility] Comment on above: Performed By: #### C DP, BMP, LIPR, GLYHGB ####[place] [address] Abs.Neutrophil (Seg) 6.21 k/uL Normal 1.50-8.10 [facility] Comment on above: Performed By: #### C DP, BMP, LIPR, GLYHGB ####[address] [address] Basophils/100 WBC Auto (Bld) 1 % Normal 0-2 [facility] Comment on above: Performed By: #### C DP, BMP, LIPR, GLYHGB ####[address] [address] Eosinophils Auto #/vol (Bld) 0.70 10*3/uL High 0.00-0.44 [facility] Comment on above: Performed By: #### C DP, BMP, LIPR, GLYHGB ####[address] [address] Eosinophils/100 WBC Auto (Bld) 7 % High 1-4 [facility] Comment on above: Performed By: #### C DP, BMP, LIPR, GLYHGB ####[address] [address] Erythrocyte distribution width Auto Ratio (RBC) 13.9 % Normal 11.8-14.4 [facility] Comment on above: Performed By: #### C DP, BMP, LIPR, GLYHGB ####[address] [address] Hematocrit Auto Volume Fraction (Bld) 44.5 % Normal 40.7-50.3 [facility] Comment on above: Performed By: #### C DP, BMP, LIPR, GLYHGB ####[address] [address] Hemoglobin mass conc (Bld) 14.5 g/dL Normal 13.0-17.0 [facility] Comment on above: Performed By: #### C DP, BMP, LIPR, GLYHGB ####[address] [address] Immature granulocytes #/vol (Bld) 1 % High 0 [facility] Comment on above: Performed By: #### C DP, BMP, LIPR, GLYHGB ####[address] [address] Lymphocytes Auto #/vol (Bld) 2.80 10*3/uL Normal 1.10-3.70 [facility] Comment on above: Performed By: #### C DP, BMP, LIPR, GLYHGB ####[address] [address] Lymphocytes/100 WBC Auto (Bld) 26 % Normal 24-43 [facility] Comment on above: Performed By: #### C DP, BMP, LIPR, GLYHGB ####[address] [address] MCH Auto Entitic mass (RBC) 27.9 pg Normal 25.2-33.5 [facility] Comment on above: Performed By: #### C DP, BMP, LIPR, GLYHGB ####[address] [address] MCHC Auto mass conc (RBC) 32.6 g/dL Normal 28.4-34.8 [facility] Comment on above: Performed By: #### C DP, BMP, LIPR, GLYHGB ####[address] [address] MCV Auto Entitic volume (RBC) 85.7 fL Normal 82.6-102.9 [facility] Comment on above: Performed By: #### C DP, BMP, LIPR, GLYHGB ####[address] [address] Monocytes Auto #/vol (Bld) 0.94 10*3/uL Normal 0.10-1.20 [facility] Comment on above: Performed By: #### C DP, BMP, LIPR, GLYHGB ####[address] [address] Monocytes/100 WBC Auto (Bld) 9 % Normal 3-12 [facility] Comment on above: Performed By: #### C DP, BMP, LIPR, GLYHGB ####[address] [address] Neutrophil (Seg) 56 % Normal 36-65 [facility] Comment on above: Performed By: #### C DP, BMP, LIPR, GLYHGB ####[address] [address] NRBC Automated 0.0 per 100 WBC Normal 0.0 [facility] Comment on above: Performed By: #### C DP, BMP, LIPR, GLYHGB ####[address] [address] Platelet mean volume Auto Entitic volume (Bld) 8.8 fL Normal 8.1-13.5 [facility] Comment on above: Performed By: #### C DP, BMP, LIPR, GLYHGB ####[address] [address] Platelets Auto #/vol (Bld) 316 10*3/uL Normal 138-453 [facility] Comment on above: Performed By: #### C DP, BMP, LIPR, GLYHGB ####[address] [address] RBC Auto #/vol (Bld) 5.19 10*6/uL Normal 4.21-5.77 [facility] Comment on above: Performed By: #### C DP, BMP, LIPR, GLYHGB ####[address] [address] WBC Auto #/vol (Bld) 10.9 10*3/uL Normal 3.5-11.3 [facility] Comment on above: Performed By: #### C DP, BMP, LIPR, GLYHGB ####[address] [address] Auto Diff Performed NOT REPORTED Normal [facility] Comment on above: Performed By: #### C DP, BMP, LIPR, GLYHGB ####[address] [address] Platelets Auto #/vol (Bld) NOT REPORTED Normal [facility] Comment on above: Performed By: #### C DP, BMP, LIPR, GLYHGB ####[address] [address] RBC morphology finding Nom (Bld) NOT REPORTED Normal [facility] Comment on above: Performed By: #### C DP, BMP, LIPR, GLYHGB ####[address] [address] WBC Morphology NOT REPORTED Normal [facility] Comment on above: Performed By: #### C DP, BMP, LIPR, GLYHGB ####[address] [address] CTA HEAD W CONTRASTon 2017 CTA HEAD [...] by:MARY Duffyigned by:Luiz Mariano MD8//18Final result Normal [facility] CTA NECK W CONTRASTon 2017 CTA [...] by:MARY Duffyigned by:Luiz Mariano MD//18Final result Normal [facility] Consulton 09-22-2017 HIM IP Note OR Muck Hauler Normal [facility] HIM IP Note OR Muck Hauler Normal [facility] Discharge Summaryon 09-23-19 18 HIM IP Note OR Muck Hauler Normal [facility] ED Noteon 09-22-2017 HIM IP Note OR Muck Hauler Normal [facility] HIM IP Note OR Muck Hauler Normal [facility] ED Provider Noteon 8 HIM IP Note OR Muck Hauler Normal [facility] History and Physicalon 09-22 HIM IP Note OR Muck Hauler Normal [facility] Lipid Profileon 09-22-2017 Cholesterol in HDL mass conc 28 mg/dL Low >40 [facility] Comment on above: Result Comment: HDL Guidelines: <40 Undesirable 40-59 Borderline >59 Desirable Performed By: #### C DP, BMP, LIPR, GLYHGB ####[facility] [address] [place] [address] Cholesterol in LDL mass conc 79 mg/dL Normal 0-130 [facility] Comment on above: Result Comment: LDL Guidelines: <100 Desirable 100-129 Near to/above Desirable 130-159 Borderline >159 UndesirableDirect (measured) LDL and calculated LDL are not interchangeable tests. Performed By: #### C DP, BMP, LIPR, GLYHGB ####[facility] [address] [place] [address] Cholesterol mass conc 135 mg/dL Normal <200 [facility] Comment on above: Result Comment: Chol esterol Guidelines: <200 Desirable 200-240 Borderline >240 Undesirable Performed By: #### C DP, BMP, LIPR, GLYHGB ####[facility] [address] [place] [address] Cholesterol.total/ Cholesterol in HDL mass ratio 4.8 {ratio} Normal <5 [facility] Comment on above: Performed By: #### C DP, BMP, LIPR, GLYHGB ####[facility] [address] [place] [address] Triglyceride mass conc 140 mg/dL Normal <150 [facility] Comment on above: Result Comment: Trig lyceride Guidelines: <150 Desirable 150- 199 Borderline 200-499 High >499 Very high Based on AHA Guidelines for fasting triglyceride, November 2011. Performed By: #### C DP, BMP, LIPR, GLYHGB ####[facility] [address] [place] [address] Cholesterol in VLDL mass conc NOT REPORTED Normal -30 [facility] Comment on above: Performed By: #### C DP, BMP, LIPR, GLYHGB ####[facility] [address] [place] [address] MRI BRAIN WO CONTRASTon MRI BRAIN WO [...] - In Basket (authorizing provider)Final result Normal [facility] Progress Noteon 09-22-2017 HIM IP Note OR Muck Hauler Normal [facility] HIM IP Note OR Muck Hauler Normal [facility] HIP RIGHT 1 OR 2 VWS WITH PE LVISon 02-03-2017 HIP RIGHT 1 OR 2 VWS WITH PELVIS [facility] [address] [place] [address] P atient Name: KWABENA AKERS : 1950Sex: MAge: Race: WhiteMRN: [id number]. Location: 84Patient Status: OVisit #: [id number] Date: 02/03/2017 1:25:00 PMCompleted Date: 02/03/2017 01:36 PMRequesting Provider: ONEIL WILLIAMSON Attending Provider: ONEIL WILLIAMSON Report Copy To: Signs & Symptoms: Z47.1 Aftercare following joint replacement surgery [id number]: AthenaComments: , , , Ordering Provider - ONEIL WILLIAMSON MD , Rendering Provider - ONEIL WILLIAMSON MD , Exam: HIP RIGHT 1 OR 2 VWS WITH PELVISAccession #: [id number] ======HIP RIGHT 1 OR 2 VWS WITH PELVIS 02/03/2017 1:36 PM EST SIGNS AND SYMPTOMS: Z47.1 Aftercare following joint replacement surgery I10 TECHNOLOGIST COMMENTS: right hip pain status post right citlaly 12-16-16, left citlaly 4 years ago check hardware QUESTION FOR THE RADIOLOGIST: , , , Ordering Provider Kyle WILLIAMSON MD , Rendering Provider Kyle WILLIAMSON [...] arthroplasty Electronically signed by:Keri Durand. Transcribed by: [email or web address], User Resident: Electronically Signed by: KERI DURAND @ 02/03/2017 01:52 PM Normal [facility] Comment on above: Order Comment: , , = ========= , Ordering Provider - OENIL WILLIAMSON MD , Rendering Provider - ONEIL WILLIAMSON MD , C REACTIVE PROTEINon 01-04-2 017 C reactive protein (CRP) 10.5 mg/L High 0.0-7.0 [facility] Comment on above: Performed By: #### 4 6447 ####[facility] CBC COMPLETE BLOOD COUNTon 1 03-06-2016 Erythrocyte distribution width Auto Ratio (RBC) 14.8 % Normal 11.5-16.9 [facility] Comment on above: Performed By: #### 4 6447 ####[facility] Erythrocytes (RBC) 4.65 mill/mm3 Normal 4.30-5.90 [facility] Comment on above: Performed By: #### 4 6447 ####[facility] Hematocrit (HCT) 40.2 % Normal 39.0-55.0 [facility] Comment on above: Performed By: #### 4 6447 ####[facility] Hemoglobin mass conc (Bld) 12.9 g/dL Low 13.9-16.3 [facility] Comment on above: Performed By: #### 4 6447 ####[facility] MCH 27.7 pg Normal 24.0-32.0 [facility] Comment on above: Performed By: #### 4 6447 ####[facility] MCHC mass conc (RBC) 32.0 g/dL Normal 32.0-36.0 [facility] Comment on above: Performed By: #### 4 6447 ####[facility] MCV 86.6 fL Normal 80.0-100.0 [facility] Comment on above: Performed By: #### 4 6447 ####[facility] PLAT CNT 629 Thou/mm3 High 100-400 [facility] Comment on above: Performed By: #### 4 6490 ####[facility] WBC (Leukocytes) 10.4 Thou/mm3 High 4.0-10.0 [facility] Comment on above: Performed By: #### 4 6408 ####[facility] SEDIMENTATION RATEon 11-14-2 017 SED RATE 50 mm/hr High 0-10 [facility] Comment on above: Performed By: #### 4 6466 ####[facility] CBC W/DIFFon 12-28-2016 Basophils Auto #/vol (Bld) 0.8 % Normal 0.0-2.0 [facility] Comment on above: Performed By: #### 4 6447 ####[facility] [place] [address], [facility] Eosinophils/100 leukocytes 4.0 % Normal 0.0-5.0 [facility] Comment on above: Performed By: #### 4 6447 ####[facility] Erythrocyte distribution width Auto Ratio (RBC) 14.5 % Normal 11.5-16.9 [facility] Comment on above: Performed By: #### 4 6447 ####[facility] Erythrocytes (RBC) 4.34 mill/mm3 Normal 4.30-5.90 [facility] Comment on above: Performed By: #### 4 6447 ####[facility] Hematocrit (HCT) 37.5 % Low 39.0-55.0 [facility] Comment on above: Performed By: #### 4 6447 ####[facility] Hemoglobin mass conc (Bld) 12.3 g/dL Low 13.9-16.3 [facility] Comment on above: Performed By: #### 4 6420 ####[facility] [place] [address], [facility] Lymphocytes/100 leukocytes 17.8 % Low 20.0-40.0 [facility] Comment on above: Performed By: #### 4 6469 ####[facility] MCH 28.3 pg Normal 24.0-32.0 [facility] Comment on above: Performed By: #### 4 6447 ####[facility] MCHC mass conc (RBC) 32.7 g/dL Normal 32.0-36.0 [facility] Comment on above: Performed By: #### 4 6483 ####[facility] MCV 86.5 fL Normal 80.0-100.0 [facility] Comment on above: Performed By: #### 4 6488 ####[facility] METHOD Normal RBC Morphology Normal [facility] Comment on above: Performed By: #### 4 4919 ####[facility] MONOS 8.0 % Normal 2-8 [facility] Comment on above: Performed By: #### 4 6424 ####[facility] Neutrophils/100 leukocytes 69.4 % Normal 50-70 [facility] Comment on above: Performed By: #### 4 1918 ####[facility] [facility].[address] PLAT CNT 689 Thou/mm3 High 100-400 [facility] Comment on above: Performed By: #### 4 4330 ####[facility] WBC (Leukocytes) 12.6 Thou/mm3 High 4.0-10.0 [facility] Comment on above: Performed By: #### 4 9861 ####[facility] HIP RIGHT 1 OR 2 VWS WITH PE LVISon 12-28-2016 HIP RIGHT 1 OR 2 VWS WITH PELVIS [facility] [address] [facility] [place] [address] P atient Name: KWABENA AKERS : 1950Sex: MAge: Race: WhiteMRN: [id number]. Location: 84Patient Status: Date: 12/28/2016 11:15:00 AMCompleted Date: 12/28/2016 11:17 AMRequesting Provider: ONEIL WILLIAMSON Attending Provider: Report Copy To: Signs & Symptoms: Z47.1 Aftercare following joint replacement surgery [id number]: AthenaComments: , , , Ordering Provider - ONEIL WILLIAMSON MD , Exam: HIP RIGHT 1 OR 2 VWS WITH PELVISAccession #: [id number] ======HIP RIGHT 1 OR 2 VWS WITH [...] above Electronically signed by:Keri Durand. Transcribed by: [email or web address], User Resident: Electronically Signed by: KERI DURAND @ 12/28/2016 12:11 PM Normal [facility] Comment on above: Order Comment: , , = ========= , Ordering Provider - ONEIL WILLIAMSON MD , Discharge Summaryon 12-26-19 17 Discharge Summary MR#: [id number] [facility] Kwabena [facility] Admitted: 12/16/2016 Discharged: [...] 12/24/2016/02:55 P/Amparo Zimmerman Trans: 12/25/2016 10:33 A/Ana Maria_JN:[id number] c: Phil Molina M.D. [address] [place] [address] , [address] [address] [place] [facility] Operative Reporton 7 Operative Report MR#: [id number] [facility]ena Akers Room #: 6AB [id number] Discharge 12/17/2016 Date: Birthdate: 1950 OPERATIVE REPORTDATE OF SURGERY: 12/16/2016SURGEON: Oneil Williamson M.D.SURGEON: Oneil Williamson MD.AIRCRAFT ASSEMBLER: Dr. LoomisANESTHESIA: General anesthesia with fascia iliaca [...] The minimus was closed itselfwith #2 interrupted asyjdk-vv-mrflr suture. The medius to itself with arunning #5 fiber suture. The vastus lateralis with a running #2 Vicrylsuture. The IT band with #2 interrupted ciolyq-mt-logav suture. Thesubcutaneous tissue over drain with a running 0-Vicryl suture. The dermiswith 2-0 Vicryl and Biosyn for the skin. Dermabond was applied. Steriledressing applied. At the conclusion of the case, all sponge, needle countscorrect. I was present for the critical portions of this case.Electronically Signed by:Oneil Williamson M.D. 01/05/2017 08:31 P Oneil Williamson M.D.Date Dict: 12/20/2016/09:46 A/Oneil Williamson M.D.Date Trans: 12/20/2016 01:09 P/mmoDN_JN:[id number] c: Phil Molina M.D. [address] [facility] , [address] [facility] [address] Normal [facility] BASIC METABOLIC PANELon 10-2 Calcium 8.4 mg/dL Low 8.6-10.3 [facility] Comment on above: Order Comment: No: D o not add to previous draw Performed By: #### 5 0103 ####[facility] [facility] [place] [address], [facility] Chloride 103 mmol/L Normal 98-107 [facility] Comment on above: Order Comment: No: D o not add to previous draw Performed By: #### 5 0103 ####[facility] [facility] [place] [address], [facility] CO2 24 mmol/L Normal 21-31 [facility] Comment on above: Order Comment: No: D o not add to previous draw Performed By: #### 5 0103 ####[facility] [facility].[address] Creatinine 0.72 mg/dL Normal 0.70-1.30 [facility] Comment on above: Order Comment: No: D o not add to previous draw Performed By: #### 5 0103 ####[place] [address] [facility].[address] eGFR (black) mL/min/{1.73_m2} Normal >[address] [facility] Comment on above: Order Comment: No: D o not add to previous draw Performed By: #### 5 0103 ####[facility] eGFR (non-black) mL/min/{1.73_m2} Normal >60 [facility] Comment on above: Order Comment: No: D o not add to previous draw Performed By: #### 5 0103 ####[facility] [place] [address], [facility] Glucose mass conc 191 mg/dL High 70-[address] [facility] Comment on above: Order Comment: No: D o not add to previous draw Performed By: #### 5 3 ####[facility] Potassium molar conc 3.9 mmol/L Normal 3.5-5.1 [facility] Comment on above: Order Comment: No: D o not add to previous draw Performed By: #### 5 3 ####[facility] Sodium 135 mmol/L Low 136-145 [facility] Comment on above: Order Comment: No: D o not add to previous draw Performed By: #### 5 3 ####[facility] Urea nitrogen 12 mg/dL Normal 7-25 [facility] Comment on above: Order Comment: No: D o not add to previous draw Performed By: #### 5 3 ####[facility] [place] [address], [facility] CBC W/DIFFon 12-17-2016 Basophils Auto #/vol (Bld) 0.3 % Normal 0.0-2.0 [facility] Comment on above: Order Comment: No: D o not add to previous draw Performed By: #### 5 3 ####[facility] [place] [address], [facility] Eosinophils/100 leukocytes 1.0 % Normal 0.0-5.0 [facility] Comment on above: Order Comment: No: D o not add to previous draw Performed By: #### 5 0103 ####[facility] [facility] [place] [address], [facility] Erythrocyte distribution width Auto Ratio (RBC) 15.0 % Normal 11.5-16.9 [facility] Comment on above: Order Comment: No: D o not add to previous draw Performed By: #### 5 0103 ####[facility] [facility].[address] Erythrocytes (RBC) 4.01 mill/mm3 Low 4.30-5.90 [facility] Comment on above: Order Comment: No: D o not add to previous draw Performed By: #### 5 0103 ####[facility] [facility].[address] Hematocrit (HCT) 34.7 % Low 39.0-55.0 [facility] Comment on above: Order Comment: No: D o not add to previous draw Performed By: #### 5 0103 ####[facility] [facility].[address] Hemoglobin mass conc (Bld) 11.4 g/dL Low 13.9-16.3 [facility] Comment on above: Order Comment: No: D o not add to previous draw Performed By: #### 5 0103 ####[facility] [facility] [place] [address], [facility] Lymphocytes/100 leukocytes 12.8 % Low 20.0-40.0 [facility] Comment on above: Order Comment: No: D o not add to previous draw Performed By: #### 5 0103 ####[facility] [facility] [place] [address], [facility] MCH 28.3 pg Normal 24.0-32.0 [facility] Comment on above: Order Comment: No: D o not add to previous draw Performed By: #### 5 0103 ####[facility] [facility] MCHC mass conc (RBC) 32.8 g/dL Normal 32.0-36.0 [facility] Comment on above: Order Comment: No: D o not add to previous draw Performed By: #### 5 0103 ####[facility] MCV 86.5 fL Normal 80.0-100.0 [facility] Comment on above: Order Comment: No: D o not add to previous draw Performed By: #### 5 0103 ####[facility] METHOD Normal RBC Morphology Normal [facility] Comment on above: Order Comment: No: D o not add to previous draw Performed By: #### 5 0103 ####[facility] MONOS 10.4 % High 2-8 [facility] Comment on above: Order Comment: No: D o not add to previous draw Performed By: #### 5 0103 ####[facility] [place] [address], [facility] Neutrophils/100 leukocytes 75.5 % High 50-70 [facility] Comment on above: Order Comment: No: D o not add to previous draw Performed By: #### 5 0103 ####[facility] [place] [address], [facility] PLAT CNT 320 Thou/mm3 Normal 100-400 The [facility] Comment on above: Order Comment: No: D o not add to previous draw Performed By: #### 5 0103 ####[facility] [facility].[address] WBC (Leukocytes) 12.3 Thou/mm3 High 4.0-10.0 The [facility] Comment on above: Order Comment: No: D o not add to previous draw Performed By: #### 5 0103 ####[facility] [facility].[address] HEMOGLOBINon 12-17-2016 Hemoglobin mass conc (Bld) 12.5 g/dL Low 13.9-16.3 [facility] Comment on above: Order Comment: No: D o not add to previous draw Performed By: #### 5 0103 ####[address] POC GLUCOSE LABon 12-17-2016 Glucose mass conc 179 mg/dL High 70-[address] [facility] Comment on above: Performed By: #### 5 0103 ####[address] Glucose mass conc 183 mg/dL High 70-[address] [facility] Comment on above: Performed By: #### 5 0103 ####[address] PROTHROMBIN TIMEon 7 INR Coag RelTime (PPP) 1.15 {INR} Normal 0.91-1.16 [facility] Comment on above: Order Comment: No: [...] OF ACTION, CLINICALEFFECTIVENESS, AND OPTIMAL THERAPEUTIC RANGE. [id number];108:231S-246S. Performed By: #### 5 0103 ####[facility] [place] [address], [facility] Prothrombin time (PT) Coag time (PPP) 14.8 s Normal 12.3-14.8 [facility] Comment on above: Order Comment: No: D o not add to previous draw Result Comment: ALL RESULTS MUST BE INTERPRETED WITH RESPECT TO BLOOD DRAWING ARTIFACTOR DILUTION ERROR OF ANTICOAGULANT AT THE TIME OF SAMPLING. Performed By: #### 5 0103 ####[facility] [place] [address], [facility] POC GLUCOSE LABon 12-16-2016 Glucose mass conc 391 mg/dL High 70-[address] [facility] Comment on above: Performed By: #### 5 0103 ####[facility] [facility] [place] [address], [facility] Glucose mass conc 160 mg/dL High 70-[address] [facility] Comment on above: Performed By: #### 5 0103 ####[facility] [facility] [place] [address], [facility] Glucose mass conc 141 mg/dL High 70-[address] [facility] Comment on above: Performed By: #### 8 5499 ####[facility] [place] [address], [place] PORTABLE HIP RIGHT 1 OR 2 VW S WITH PELVISon 12-16-2016 PORTABLE HIP RIGHT 1 OR 2 VWS WITH PELVIS [facility] [address] [place] [address] P atient Name: KWABENA AKERS : 1950Sex: MAge: Race: WhiteMRN: [id number]. Location: OUTPPatient Status: OVisit #: [id number] Date: 12/16/2016 11:40:00 AMCompleted Date: 12/16/2016 12:02 PMRequesting Provider: ZACHERY LOOMIS Attending Provider: ONEIL WILLIAMSON Report Copy To: Signs & Symptoms: Pain ( specify Location)History: Patient history not availableComments: Hardware EvaluationExam: PORTABLE HIP RIGHT 1 OR 2 VWS WITH PELVISAccession #: [id number] ======PORTABLE HIP RIGHT 1 OR 2 VWS [...] arthroplasty. Electronically signed by:Connor Pinedo. Transcribed by: [email or web address], User Resident: Electronically Signed by: CONNOR PINEDO @ 12/16/2016 01:09 PM Normal [facility] Comment on above: Order Comment: Hardw are Evaluation RBC'S 2 UNITSon 12-16-2016 CROSSMATCH INTERP 1 COMP Normal [facility] Comment on above: Performed By: #### 5 0103 ####[facility] [place] [address], [facility] CROSSMATCH INTERP 2 COMP Normal [facility] Comment on above: Performed By: #### 5 0103 ####[facility] [place] [address], [facility] PRODUCT CODE 1 E0336 Normal The [facility] Comment on above: Performed By: #### 5 0103 ####[facility] [place] [address], [facility] PRODUCT CODE 2 E0336 Normal The [facility] Comment on above: Performed By: #### 5 0103 ####[facility] [place] [address], [place] PRODUCT STATUS 1 RE Normal The [facility] Comment on above: Result Comment: Resu lt changed by IF on 12/19/2016 07:07. The previous value was XM. Performed By: #### 5 0103 ####[facility] [facility] [place] [address], [facility] PRODUCT STATUS 2 RE Normal The [facility] Comment on above: Result Comment: Resu lt changed by IF on 12/19/2016 07:07. The previous value was XM. Performed By: #### 5 0103 ####[facility] [place] [address], [place] UNIT ABO 1 A Normal [facility] Comment on above: Performed By: #### 5 0103 ####[facility] [place] [address], [place] UNIT ABO 2 A Normal [facility] Comment on above: Performed By: #### 5 0103 ####[facility] [facility] UNIT ID 1 [id number] Normal The [facility] Comment on above: Performed By: #### 5 0103 ####[facility] UNIT ID 2 [id number] Normal The [facility] Comment on above: Performed By: #### 5 0103 ####[facility] [facility].[address] UNIT RH 1 Positive Normal [facility] Comment on above: Performed By: #### 5 0103 ####[facility] [facility].[address] UNIT RH 2 Positive Normal [facility] Comment on above: Performed By: #### 5 0103 ####[facility] [facility].[address] APTTon 12-02-2016 aPTT 26.0 s Normal 25.0-35.0 [facility] Comment on above: Result Comment: ALL RESULTS [...] THIS PURPOSE. Performed By: #### 5 6101, [id number] ####[facility] [facility].[address] BASIC METABOLIC PANELon 10-1 Calcium 9.7 mg/dL Normal 8.6-10.3 [facility] Comment on above: Performed By: #### 0 0071 ####[facility] [facility].[address] Chloride 101 mmol/L Normal 98-107 [facility] Comment on above: Performed By: #### 0 0071 ####[facility] [facility] [place] [address], [facility] CO2 23 mmol/L Normal 21-31 [facility] Comment on above: Performed By: #### 0 0071 ####[facility] [place] [address], [facility] Creatinine 0.75 mg/dL Normal 0.70-1.30 [facility] Comment on above: Performed By: #### 0 0071 ####[place] [id number] [facility] [place] [address], [facility] eGFR (black) mL/min/{1.73_m2} Normal >[address] [facility] Comment on above: Performed By: #### 0 0071 ####[facility] [facility] [place] [address], [facility] eGFR (non-black) mL/min/{1.73_m2} Normal >60 Th [facility] Comment on above: Performed By: #### 0 0071 ####[place] [address] [facility] [place] [address], [facility] Glucose mass conc 173 mg/dL High 70-[address] [facility] Comment on above: Performed By: #### 0 0071 ####[facility] [place] [address], [facility] Potassium molar conc 4.0 mmol/L Normal 3.5-5.1 [facility] Comment on above: Performed By: #### 0 0071 ####[facility] [place] [address], [facility] Sodium 137 mmol/L Normal 136-145 [facility] Comment on above: Performed By: #### 0 0071 ####[facility] [facility].[address] Urea nitrogen 14 mg/dL Normal 7-25 [facility] Comment on above: Performed By: #### 0 0071 ####[place] [address] [facility].[address] CBC COMPLETE BLOOD COUNTon Erythrocyte distribution width Auto Ratio (RBC) 14.5 % Normal 11.5-16.9 [facility] Comment on above: Performed By: #### 5 0608 ####[place] [address] [facility].[address] Erythrocytes (RBC) 5.39 mill/mm3 Normal 4.30-5.90 [facility] Comment on above: Performed By: #### 5 0608 ####[address] Hematocrit (HCT) 46.4 % Normal 39.0-55.0 [facility] Comment on above: Performed By: #### 5 0608 ####[address] Hemoglobin mass conc (Bld) 15.3 g/dL Normal 13.9-16.3 [facility] Comment on above: Performed By: #### 5 0608 ####[address] MCH 28.4 pg Normal 24.0-32.0 [facility] Comment on above: Performed By: #### 5 0608 ####[place] [address] [facility].[address] MCHC mass conc (RBC) 33.0 g/dL Normal 32.0-36.0 [facility] Comment on above: Performed By: #### 5 0608 ####[address] [place] [address], [facility] MCV 86.1 fL Normal 80.0-100.0 [facility] Comment on above: Performed By: #### 5 0608 ####[facility] [facility].[address] PLAT CNT 414 Thou/mm3 High 100-400 The [facility] Comment on above: Performed By: #### 5 0608 ####[facility] [facility].[address] WBC (Leukocytes) 10.0 Thou/mm3 Normal 4.0-10.0 [facility] Comment on above: Performed By: #### 5 0608 ####[facility] [facility].[address] PROTHROMBIN TIMEon 1012-201 7 INR Coag RelTime (PPP) 1.08 {INR} Normal 0.91-1.16 [facility] Comment on above: Result Comment: ACCC P RECOMMENDED INR FOR WARFARIN THERAPY CONDITION INRPROPHYLAXIS OF VENOUS THROMBOSIS 2-3(HIGH-RISK SURGERY)TREATMENT OF VENOUS THROMBOSIS 2-3TREATMENT OF PULMONARY EMBOLISM 2-3PREVENTION OF SYSTEMIC EMBOLISM: 2-3 ACUTE MYOCARDIAL INFARCTION TISSUE HEART VALVES VALVULAR HEART DISEASE ATRIAL FIBRILLATION RECURRENT SYSTEMIC EMBOLISMMECHANICAL HEART VALVE 2.5-3.5 FROM: ORAL ANTICOAGULANTS. MECHANISM OF ACTION, CLINICALEFFECTIVENESS, AND OPTIMAL THERAPEUTIC RANGE. [id number];108:231S-246S. Performed By: #### 5 6101, 77615 ####[facility] [facility].[address] Prothrombin time (PT) Coag time (PPP) 14.0 s Normal 12.3-14.8 [facility] Comment on above: Result Comment: ALL RESULTS MUST BE INTERPRETED WITH RESPECT TO BLOOD DRAWING ARTIFACTOR DILUTION ERROR OF ANTICOAGULANT AT THE TIME OF SAMPLING. Performed By: #### 5 6101, [id number] ####[facility] TYPE AND CROSSMATCHon 2016 ABO INTERPRETATION A Normal The [facility] Comment on above: Performed By: #### 6 2594 ####[address] ANTIBODY SCREEN Negative Normal [facility] Comment on above: Performed By: #### 6 2594 ####[facility] RH INTERPRETATION Positive Normal The [facility] Comment on above: Performed By: #### 6 2594 ####[address] *MRSA/MSSA CULTUREon 017 *MRSA/MSSA CULTURE Clinical Report: (D) Specimen: NASAL SWAB Collected: 10/12/2016 12:17 Status: Final Last Updated: 10/13/2016 14:36 CULT RES (Final) No Methicillin Resistant Staphylococcus aureus Isolated ISO (Final) No Methicillin Sensitive Staphylococcus aureus Isolated Normal [facility] Comment on above: Performed By: #### 3 1302 ####[facility] [facility].[address] CBC W/DIFFon 10-12-2016 Basophils Auto #/vol (Bld) 0.6 % Normal 0.0-2.0 [facility] Comment on above: Performed By: #### 5 0103 ####[facility]3000 [facility] [address], [facility] Eosinophils/100 leukocytes 5.6 % High 0.0-5.0 [facility] Comment on above: Performed By: #### 5 0103 ####[facility] [facility].[address] Erythrocyte distribution width Auto Ratio (RBC) 14.7 % Normal 11.5-16.9 [facility] Comment on above: Performed By: #### 5 0103 ####[facility] [facility] [place] [address], [facility] Erythrocytes (RBC) 5.59 mill/mm3 Normal 4.30-5.90 [facility] Comment on above: Performed By: #### 5 0103 ####[facility] [facility].[address] Hematocrit (HCT) 47.7 % Normal 39.0-55.0 [facility] Comment on above: Performed By: #### 5 0103 ####[facility] Hemoglobin mass conc (Bld) 15.9 g/dL Normal 13.9-16.3 [facility] Comment on above: Performed By: #### 5 0103 ####[facility] [facility] [place] [address], [facility] Lymphocytes/100 leukocytes 18.5 % Low 20.0-40.0 [facility] Comment on above: Performed By: #### 5 0103 ####[facility] MCH 28.4 pg Normal 24.0-32.0 [facility] Comment on above: Performed By: #### 5 3 ####[facility] [facility] [place] [address], [facility] MCHC mass conc (RBC) 33.3 g/dL Normal 32.0-36.0 [facility] Comment on above: Performed By: #### 5 0103 ####[facility] MCV 85.4 fL Normal 80.0-100.0 [facility] Comment on above: Performed By: #### 5 0103 ####[facility] [facility] [place] [address], [facility] METHOD Normal [facility] Comment on above: Result Comment: Auto mated differential performedNormal RBC Morphology Performed By: #### 5 0103 ####[facility] [facility].[address] MONOS 7.8 % Normal 2-8 [facility] Comment on above: Performed By: #### 5 0103 ####[facility] [facility].[address] Neutrophils/100 leukocytes 67.5 % Normal 50-70 [facility] Comment on above: Performed By: #### 5 0103 ####[facility] [facility] [place] [address], [facility] PLAT CNT 399 Thou/mm3 Normal 100-400 [facility] Comment on above: Performed By: #### 5 0103 ####[facility] [facility].[address] WBC (Leukocytes) 11.0 Thou/mm3 High 4.0-10.0 [facility] Comment on above: Performed By: #### 5 0103 ####[facility] [facility].[address] HEMOGLOBIN A1Con 10-12-2016 Glucose mass conc 180 mg/dL High 70-126 [facility] Comment on above: Performed By: #### 4 6458 ####[facility] [facility].[address] Hemoglobin A1c/Hemoglobin.tot al mass fraction (Bld) 7.9 % High 4.0-6.0 [facility] Comment on above: Performed By: #### 4 6447 ####[facility] HIP RIGHT 1 OR 2 VWS WITH PE LVISon 10-12-2016 HIP RIGHT 1 OR 2 VWS WITH PELVIS [facility] [address]ks[address] [place] [address] P atient Name: KWABENA AKERS : 1950Sex: MAge: Race: WhiteMRN: [id number]. Location: 84Patient Status: OVisit #: [id number] Date: 10/12/2016 10:45:00 AMCompleted Date: 10/12/2016 10:48 AMRequesting Provider: ONEIL WILLIAMSON Attending Provider: ONEIL WILLIAMSON Report Copy To: Signs & Symptoms: M16.11 Unilateral primary osteoarthritis, right hip W90Hlgnsan: AthenaComments: , , , Ordering Provider - ONEIL WILLIAMSON MD , Rendering Provider - ONEIL WILLIAMSON MD , Exam: HIP RIGHT 1 OR 2 VWS WITH PELVISAccession #: [id number] ======HIP RIGHT 1 OR 2 VWS WITH [...] moderate. Electronically signed by:Geovanny Traylor. Transcribed by: [id number], User Resident: Electronically Signed by: GEOVANNY TRAYLOR @ 10/12/2016 11:55 AM Normal [facility] Comment on above: Order Comment: , , = ========= , Ordering Provider - ONEIL WILLIAMSON MD , Rendering Provider - ONEIL WILLIAMSON MD , Vital Signs Date Time Vital Sign Value Performing Clinician Chelly bhatt 01-17-2019 11:40-0500 Body Temperature 97.11 [degF] [address] 01-17-2019 11:40-0500 BP Diastolic 97 mm[Hg] [address] 01-17-2019 11:40-0500 BP Systolic 162 mm[Hg] [address] 01-17-2019 11:40-0500 Pulse (Heart Rate) 96 /min [address] 01-17-2019 11:40-0500 Respiratory Rate 20 /min [address] 01-15-2019 11:10-0500 BP Diastolic 81 mm[Hg] [address] 01-15-2019 11:10-0500 BP Systolic 164 mm[Hg] [address] 01-15-2019 10:45-0500 Body Temperature 98.1 [degF] [address] 01-15-2019 10:45-0500 Pulse (Heart Rate) 97 /min [address], [place] 01-15-2019 10:45-0500 Respiratory Rate 20 /min [address] [facility] [place] 01-14-2019 10:10-0500 Body Temperature 97.81 [degF] [address] [facility], [place] 01-14-2019 10:10-0500 BP Diastolic 60 mm[Hg] [address] , [place] 01-14-2019 10:10-0500 BP Systolic 165 mm[Hg] [address] , [place] 01-14-2019 10:10-0500 Pulse (Heart Rate) 92 /min [address], [place] 01-14-2019 10:10-0500 Pulse Oximetry 96 % [address] 01-14-2019 10:10-0500 Respiratory Rate 16 /min [address] [facility] [place] 01-13-2019 10:50-0500 BP Diastolic 77 mm[Hg] [address] , [place] 01-13-2019 10:50-0500 BP Systolic 154 mm[Hg] [address] , [place] 01-13-2019 10:50-0500 Pulse (Heart Rate) 83 /min [address], [place] 01-13-2019 10:18-0500 Body Temperature 98.4 [degF] [address] [facility] [place] 01-13-2019 10:18-0500 Pulse Oximetry 99 % [address] 01-13-2019 10:18-0500 Respiratory Rate 20 /min [address] [facility] [place] 01-12-2019 17:45-0500 BP Diastolic 59 mm[Hg] [facility] [place] 01-12-2019 17:45-0500 BP Systolic 137 mm[Hg] [facility] , [place] 01-12-2019 17:45-0500 Pulse (Heart Rate) 75 /min [facility], [place] 01-12-2019 17:45-0500 Pulse Oximetry 95 % [facility] [place] 01-12-2019 17:45-0500 Respiratory Rate 18 /min [facility], [place] 01-12-2019 17:18-0500 Body Temperature 97.59 [degF] Jessica Cooper [facility], [place] 01-12-2019 14:45-0500 BMI (Body Mass Index) 58.18 kg/m2 Jessica Ruff [facility], [place] 01-12-2019 14:45-0500 Body weight 178.72 kg Jessica Cooper [facility] , [place] 01-12-2019 14:45-0500 Height 175.3 cm [facility] , [place] Encounters Encounter Date Encounter Type Care Provider Facility Start: 03-31-2023 End: 04-03-2023 ambulatory [facility] Start: 03-31-2023 End: 04-02-2023 Subsequent hospital visit by physician Marisol Carr MD Work Phone: [facility] Comment on above: Hyperlipidemia, unsp ecified hyperlipidemia type; Type 2 diabetes mellitus with hyperglycemia, with long-term current use of insulin (HCC); Essential hypertension Abnormal x-ray; Lung density on x-ray Start: 02-09-2023 End: 02-10-2023 ambulatory TAY Delano SHAR[facility] Start: 01-26-2023 End: 01-27-2023 [facility] Start: 01-24-2023 End: 01-25-2023 amb[facility] Start: 01-20-2023 End: 01-21-2023 ambulatory [facility] Start: 01-17-2023 End: 01-18-2023 ambulatory [facility] Start: 01-12-2023 End: 01-13-2023 ambulatory [facility] Start: 01-10-2023 End: 01-11-2023 ambulatory [facility] Start: 01-07-2023 End: 01-08-2023 ambulatory [facility] Start: 01-04-2023 End: 01-05-2023 ambulatory [facility] Start: 12-22-2022 End: 12-25-2022 ambulatory [facility] Start: 10-27-2022 End: 10-28-2022 ambulatory [facility] Start: 09-16-2022 End: 09-17-2022 ambulatory [facility] Start: 04-29-2022 End: 04-30-2022 ambulatory PHIL Gaxiola MOLINA [facility] Start: 04-29-2022 End: 04-29-2022 Subsequent hospital visit by physician Phil Molina MD Work Phone: [facility] Comment on above: Essential hypertensi on Start: 07-21-2021 End: 07-21-2021 Subsequent hospital visit by physician Phil Molina MD Work Phone: [facility] Comment on above: Left lower quadrant abdominal pain Start: 06-01-2021 End: 06-01-2021 Patient encounter procedure Phil Molina MD Work Phone: [facility] Start: 06-01-2021 End: 06-01-2021 Subsequent hospital visit by physician Phil Molina MD Work Phone: [facility] Comment on above: Encounter for prosta te cancer screening; Encounter for Medicare annual wellness exam; Type 2 diabetes mellitus without complication, without long-term current use of insulin (HCC) Start: 01-08-2020 End: 01-08-2020 Subsequent hospital visit by physician Phil Molina [facility] Comment on above: Encounter for prosta te cancer screening; Encounter for Medicare annual wellness exam; Type 2 diabetes mellitus without complication, without long-term current use of insulin (HCC) Start: 01-17-2019 End: 01-17-2019 Subsequent hospital visit by physician [facility] Op Treatment Rm 03 [facility] ([facility]) Start: 01-15-2019 End: 01-15-2019 Subsequent hospital visit by physician [facility] Op Treatment Rm 03 [facility] ([facility]) Start: 01-14-2019 End: 01-14-2019 Subsequent [facility] visit [facility] Comment on above: Arrived Start: 01-13-2019 End: 01-13-2019 Subsequent hospital visit by physician [facility] Comment on above: Arrived Start: 01-12-2019 End: 01-12-2019 Patient encounter procedure JESSICA COOPER [facility] Start: 01-12-2019 End: 01-12-2019 Subsequent hospital visit by physician Jessica Cooper Work Phone: [facility] Comment on above: Gluteal abscess (Sue herber Dx) Start: 09-22-2017 End: 09-22-2017 Evaluation and management of inpatient PHIL MOLINA [facility] Start: 02-03-2017 End: 02-04-2017 Ambulatory ONEIL WILLIAMSON Facility:[facility] Start: 01-04-2017 End: 01-05-2017 Ambulatory ONEIL J GEING Facility:[facility] Start: 12-28-2016 End: 12-29-2016 Ambulatory ONEIL J GEHLING Facility:[facility] Start: 12-16-2016 End: 12-17-2016 Evaluation and management of inpatient ONEIL J GEHLING Facility:[facility] Start: 10-12-2016 End: 10-13-2016 Ambulatory ONEIL Sb GETERRELLING Facility:[facility] Procedures Date Procedure Procedure Detail Performing Clinician [...] JESSICA COOPER Start: 01-12-2019 WOUND CARE JESSICA DAVALOS Start: 01-12-2019 FULL CODE JESSICA DAVALOS Start: [...] SIGNS JESSICA GARCIALUISMain PERALTAAleisha Start: 01-12-2019 VOID SCHEDULE MAKER TO OR JESSICABILL COOPER Start: 01-12-2019 Gluc [...] MOLINA Start: 09-22-2017 NOTIFY PHYSICIAN (SPECIFY) PHIL MOILNA Start: 09-22-2017 REASON FOR NO CHEMIC AL [...] 11-25-2026 Screening for malignant neoplasm of colon [facility] Start: 03-09-2026 Hepatitis C screen Hepatitis C screen [facility] [place] Comment on above: Postponed from 1950 (Unavailable) Start: 03-09-2026 Hepatitis C screening Hepatitis C screen [facility] Comment on above: Postponed from 1950 (Unavailable) Postponed from 06/03 (Unavailable) Start: 08-05-2024 Colon cancer screen colonoscopy Colon cancer screen colonoscopy [facility] [place] Start: 08-05-2024 Screening for malignant neoplasm of colon [facility] Start: 03-31-2024 GFR test (Diabetes, CKD 3-4, OR last GFR 15-59) GFR test (Diabetes, CKD 3-4, OR last GFR 15-59) [facility] Start: 03-31-2024 Lipid panel Lipids [facility] Start: 03-18-2024 Depression Monitoring Depression Monitoring [facility] Start: 02-10-2024 Hemoglobin A1c measurement A1C test (Diabetic or Prediabetic) [facility] Start: 10-28-2023 Urine screening for protein Diabetic Alb to Cr ratio (uACR) test [facility] Start: 05-04-2023 End: 05-04-2023 Patient encounter procedure [facility] Comment on above: emg rue Start: 04-30-2023 GFR test (Diabetes, CKD 3-4, OR last GFR 15-59) GFR test (Diabetes, CKD 3-4, OR last GFR 15-59) [facility] Start: 04-28-2023 End: 04-28-2023 Patient encounter procedure 04/28/2023 10:45 AM EST Office Visit [facility] [address] [place] [address] [address] [place], [place] [id number] Marisol Carr MD [address] [place] [address] [address] [place] [address] 3 [place] [facility] Comment on above: 3 [place] Start: 03-25-2023 Depression Monitoring Depression Monitoring [facility] Start: 03-25-2023 Hemoglobin A1c measurement A1C test (Diabetic or Prediabetic) [facility] Start: 01-17-2023 Annual Wellness Visit (Medicare) Annual Wellness Visit (Medicare) [facility] Start: 07-15-2022 End: 07-15-2022 Patient encounter procedure 07/15/2022 Office Visit Primary Care Marisol Carr MD [address] [place] [address] [address] [place] [address] [facility] Start: 06-01-2022 Creatinine measurement Creatinine monitoring [facility] Start: 06-01-2022 Lipid panel Lipids [facility] Start: 06-01-2022 Potassium monitoring Potassium monitoring [facility] Start: 06-01-2022 Prostate specific antigen measurement Prostate Specific Antigen (PSA) Screening or Monitoring [facility] Start: 05-26-2022 Annual Wellness Visit (AWV) Annual Wellness Visit (AWV) [facility] Start: 05-25-2022 Depression Monitoring Depression Monitoring [facility] Start: 10-06-2021 End: 10-06-2021 Patient encounter procedure 10/06/2021 Office Visit Gastroenterology Mateo Melanie Marcia [address] [facility] [place] [address] [facility] Start: 08-27-2021 End: 08-27-2021 Patient encounter procedure 08/27/2021 Office Visit Primary Care Phil Molina MD [address] [place] [id number] [facility] Start: 08-24-2021 Hemoglobin A1c measurement A1C test (Diabetic or Prediabetic) [facility] Start: 08-15-2021 Diabetic foot examination Diabetic foot exam [facility] Start: 02-11-2021 COVID-19 Vaccine (4 - Booster for Moderna series) COVID-19 Vaccine (4 - Booster for Moderna series) [facility] Start: 01-07-2021 HbA1c (Bld) [Mass fraction] A1C test (Diabetic or Prediabetic) [facility] [place] Start: 01-07-2021 Lipid panel Lipid screen [facility] Start: 01-07-2021 Urine screening for protein [facility] Start: 04-08-2020 End: 04-08-2020 Office Visit 04/08/2020 Office Visit Family Medicine Phil Molina MD [address] [id number] Phil Molina MD Start: 04-14-2019 A1C test (Diabetic or Prediabetic) A1C test (Diabetic or Prediabetic) [facility] [employer] [place], [place] Start: 03-31-2019 [object Object] Diabetic foot exam [facility] [place] Start: 03-31-2019 Diabetic foot examination Diabetic foot exam [facility], [place] Start: 03-31-2019 Diabetic microalbuminuria test Diabetic microalbuminuria test [facility] [place] Start: 01-30-2019 End: 01-30-2019 Office Visit 01/30/2019 Office Visit General Surgery Jessica Cooper MD [address] [place] [address] [address] [place] [address] [phone] [facility] Start: 01-22-2019 End: 01-22-2019 Appointment [...] Visit General Surgery Jessica Cooper MD [address] [facility] [address] [place] [address] [phone] [facility] Start: 01-14-2019 End: 01-14-2019 Appointment 01/14/2019 Appointment Infusion Therapy [facility] Start: 11-23-2018 Pneumococcal 65+ years Vaccine (2 of 2 - PPSV23) Pneumococcal 65+ years Vaccine (2 of 2 - PPSV23) [place] Start: 10-22-2018 Influenza vaccination Flu vaccine (#1) [place] Start: 09-22-2018 Creatinine measurement Creatinine monitoring [place], [place] Start: 09-22-2018 Creatinine monitoring Creatinine monitoring [place], [place] Start: 09-22-2018 Lipid panel Lipid [place] Start: 09-22-2018 Lipid screen Lipid [place] Start: 09-22-2018 Potassium monitoring Potassium [place] Start: 07-19-2018 Annual Wellness Visit (AWV) Annual Wellness Visit (AWV) [place] Start: 02-05-2016 Diabetic retinal exam Diabetic retinal exam [facility] Start: 02-05-2016 Glaucoma screening Diabetic retinal exam [facility] Start: 2012 Respiratory Syncytial Virus (RSV) or age 60 yrs+ (1 - 1-dose 60+ series) Respiratory Syncytial Virus (RSV) or age 60 yrs+ (1 - 1-dose 60+ series) [facility] Start: 2002 Shingles Vaccine (1 of 2) Shingles Vaccine (1 of 2) [facility] Start: 1997 Screening for malignant neoplasm of colon [facility] Start: 06-04-1971 DTaP/Tdap/Td vaccine (1 - Tdap) DTaP/Tdap/Td vaccine (1 - Tdap) [facility] Start: 06-04-1963 DTaP/Tdap/Td vaccine (1 - Tdap) DTaP/Tdap/Td vaccine (1 - Tdap) [place] [facility] [place] Comment on above: ONE TIME for 1 Occurrences starting 12/23 End: 01-12-2019 Blood glucose - POCT Blood glucose - POCT Point of Care Testing Routine One Time for 1 Occurrences starting 01/12/2019 until 01/12/2019 [place] Comment on above: One Time for 1 Occurrences starting 12/23 until 01/12/2019 Initiate Oxygen Ther apy Protocol Initiate Oxygen Therapy Protocol Respiratory Care Routine Daily until discontinued starting 01/12/2019 [place] Comment on above: Daily until discontinued starting 2018 Immunizations Immunization Date Immunization Notes Care Provider Fa [facility] 11-27-2021 Influenza, FLUAD, (a ge 65 y+), Adjuvanted, 0.5mL Phil Molina MD Work Phone: [facility] Work Phone: 11-20-2020 Influenza, Quadv, adjuvanted, 65 yrs +, IM, PF (Fluad) hPil Molina MD Work Phone: [facility] 05-14-2020 COVID-19, Moderna, Primary or Immunocompromised, PF, 100mcg/0.5mL Phil Molina MD Work Phone: [facility] Work Phone: 04-16-2020 COVID-19, Moderna, Primary or Immunocompromised, PF, 100mcg/0.5mL Phil Molina MD Work Phone: [facility] 01-08-2020 pneumococcal polysaccharide vaccine, 23 valent [facility], [place] 11-19-2019 Influenza, Quadv, adjuvanted, 65 yrs +, IM, PF (Fluad) [facility] 02-22-2019 influenza virus vacc ine, unspecified formulation [facility] , [place] 02-22-2019 influenza, injectabl e, quadrivalent, contains preservative [facility], [place] 11-23-2017 pneumococcal conjuga te vaccine, 13 valent [facility], [place] 11-23-2017 Seasonal trivalent influenza vaccine, adjuvanted, preservative free [facility], [place] 12-17-2016 influenza virus vacc ine, unspecified formulation [facility] 12-08-2015 Influenza Vaccine, unspecified formulation [facility] [place] 12-09-2014 influenza virus vacc ine, unspecified formulation [facility] [place] 10-18-2013 influenza virus vacc ine, unspecified formulation [facility] 12-11-2012 influenza virus vacc ine, unspecified formulation [facility] [place] 03-13-2012 pneumococcal polysaccharide vaccine, 23 valent [facility] 03-03-2010 influenza virus vacc ine, whole virus [facility] Payers Date Payer Category Payer Unknown [id number] 2017 Medicare [id number] 2017 Medicare MEDICARE MEDICAR E PART A AND B xxxxxxxxxxx 2017-Present [phone] [place] [address] xxxxxxxxxxx [id number] 2017 Unknown [employer] SUPP xxxxxx-xx 2017-Present [phone] ATTN INDIVIDUAL CLAIMS [id number] [employer] [place] [address] xxxxxx-xx [id number] 2017 Unknown [id number] 2014 Medicare [id number] 1950 Unknown [id number] 1952 Unknown [id number] 2.16.840.1.410674.3.579.2. 1952 Unknown [id number] [id number] 1952 Unknown [id number] [id number] 1952 Unknown [id number] [id number] 1952 Unknown [id number] [id number] 1952 Unknown [id number] [id number] 1952 Unknown [id number] [id number] 1952 Unknown [id number] [id number] 1952 Unknown [id number] 2.16.840.1.528561.3.579.2.173 1952 Unknown [id number] 2.16.840.1.381952.3.579.2.173 1952 Unknown [id number] 2.16.840.1.256082.3.579.2.173 1952 Unknown [id number] 2.16.840.1.516866.3.579.2.173 1952 Unknown [id number] [id number] 1952 Unknown [id number] [id number] 1952 Unknown [id number] [id number] Unknown [id number] Social History Date Type Detail Facility Start: 01-12-2019 End: 10-06-2021 Tobacco smoking status NHIS Former smoker [facility] Start: 02-21-1959 End: 02-21-1979 History of tobacco use Current sm[place] Start: 02-21-1959 End: 02-21-1979 History of tobacco use Cigarette [place] Start: 01-12-2019 End: 03-25-2022 Cigarettes smoked current (pack per day) - Reported [place] Start: 01-12-2019 End: 03-18-2023 Alcohol intake Current non-drinker of alcohol (finding) [place] Start: 03-25-2011 Alcohol Comment rare [place], [place] Start: 1950 Sex Assigned At Not on file [place] Start: 01-08-2020 End: 10-06-2021 Tobacco use and exposure Never used [place], [place] Start: 05-25-2021 End: 03-25-2022 History SDOH Alcohol Frequency 1 [facility] Work Phone: Start: 05-25-2021 History SDOH Physica l Activity DPW 0 [facility] Work Phone: Start: 08-15-2020 End: 03-25-2022 History SDOH Financial 5 [facility] Work Phone: Start: 08-15-2020 End: 03-25-2022 History SDOH Transport Med 2 [facility] Work Phone: Start: 05-25-2021 End: 03-25-2022 Alcohol Use Disorder Identification Test - Consumption [AUDIT-C] [facility] How often to you hav e a drink containing alcohol? Never [facility] Average Number of Drinks Not on file [facility] (I/We) worried wheth er (my/our) food would run out before (I/we) got money to buy more. Never true [facility] At any time in the p ast 12 months, were you homeless or living in group home [including now]? No [facility] Medical Equipment Procedure Code Equipment Code Equipment Origin al Text Equipment Identifier Dates 1 strip by Other route 2 times daily [id number] Start: 04-03-2018 1 each by In Vit ro route 2 times daily. As needed. [id number] 1 each by Does n ot apply route 2 times daily [id number] Start: 04-03-2018 1 strip by Other route 2 times daily [id number] Start: 06-13-2020 1 strip by Other route 2 times daily [id number] Start: 07-02-2021 Use needle to in ject Levemir in to the skin every night. [id number] Start: 06-25-2021 1 strip by Other route 2 times daily [id number] Start: 08-26-2022 Use needle to in ject Levemir in to the skin every night. [id number] Start: 11-12-2022 1 each by Does n ot apply route daily [id number] Start: 01-20-2023 Goals Date Patient Goal Desired Activity /State Comment on above: I will try to decrea se the high sugar foods in my diet. Barriers: lack of motivation Plan for overcoming my barriers: Patient will participate in care coordination. Patient will review diet with cigarette maker. Confidence: 07/31 Anticipated Goal Completion Date: 02/21/2020 Comment on above: Formatting of this n ote might be different from the original. I will take my medication as directed. I will notify my provider of any problems with medications, like adverse effects or side effects. I will notify my provider/[employer] if I am unable to afford my [...] of insulin (HCC) documented in this encounter [facility] Phone: Evaluation note Note Date & Type Note Facility Evaluation note Diagnosis Left lower quadrant abdominal pain documented in this encounter [facility] Phone: Evaluation note Note Date & Type Note Facility Evaluation note Diagnosis Essential hypertension Unspecified essential hypertension documented in this encounter [facility] Phone: Evaluation note Note Date & Type Note Facility Evaluation note Diagnosis Hyperlipidemia, unspecified hyperlipidemia type Type 2 diabetes mellitus with hyperglycemia, with long-term current use of insulin (HCC) Essential hypertension Unspecified essential hypertension documented in this encounter [facility] Evaluation note Note Date & Type Note Facility Evaluation note Diagnosis Abnormal x-ray Other nonspecific (abnormal) findings on radiological and other examinations of body structure Lung density on x-ray Other diseases of lung, not elsewhere classified documented in this encounter [facility] Summary Purpose Family History No Family History Records FoundNo Family History Records FoundNo Family History Records FoundNo Family History Records Found Advance Directives No Advanced Directives Records FoundDocuments on File Type Date Recorded 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 Advance Directives and Living Will Power of Road Mender Latest Code Status on File Code Status Date Activated Date Inactivated Comments Full Code 01/12/2019 4:48 PM Full Code 01/12/2019 4:11 PM 01/12/2019 4:48 PM Full Code 09/22/2017 6:50 AM 09/22/2017 3:18 PM Full Code 09/22/2017 5:54 AM 09/22/2017 6:50 AM Full Code 09/13/2016 7:35 AM 09/15/2016 6:35 PM Documents on File Type Date Recorded 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 Advance Directives and Living Will Power of Road Mender Latest Code Status on File Code Status Date Activated Date Inactivated Comments Full Code 01/12/2019 4:48 PM 01/12/2019 8:21 PM Full Code 01/12/2019 4:11 PM 01/12/2019 4:48 PM Full Code 09/22/2017 6:50 AM 09/22/2017 3:18 PM Full Code 09/22/2017 5:54 AM 09/22/2017 6:50 AM Full Code 09/13/2016 7:35 AM 09/15/2016 6:35 PM Documents on File Type Date Recorded 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 Leave sutured alejo drain in place. Take bag of dressing supplies with you to the ED when you go. May change outer dressing at home if it becomes saturated before next dressing change. Follow up with Dr. Cooper in [place] on Tuesday. Call Tuesday to make appointment [phone]. documented in this encounter* Discharge Instr - [...] [address] [place] [address] Relation: Spouse Past Surgical History: Past Surgical [...] yrs and older) 11/23/2017 Pneumococcal Conjugate 13-valent ([id number]) 11/23/2017 Pneumococcal Polysaccharide ([id number]) 03/13/2012 Active Problems: Patient Active Problem List Diagnosis Code Essential hypertension I10 Type 2 diabetes mellitus without complication, without long-term current use of insulin ([facility]) E11.9 Hyperlipidemia E78.5 Acute pain of right hip M25.551 Primary osteoarthritis of right hip M16.11 Osteoarthritis of knee M17.10 Degenerative arthritis of hip M16.9 Depression, major, in remission ([facility]) F32.5 Numbness R20.0 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 Facial droop R29.810 Diabetes mellitus due to underlying condition with hyperglycemia, without long- term current use of insulin ([facility]) E08.65 Morbid obesity with BMI of 50.0-59.9, adult ([facility]) E66.01, Z68.43 Gluteal abscess L02.31 Isolation/Infection: Isolation No Isolation Patient Infection Status None to display Nurse Assessment: Last Vital Signs: BP (!) 154/77 Pulse 83 Temp 98.4 F (36.9 C) (Tympanic) Resp 20 SpO2 99% Last documented pain score (0-10 scale): Last Weight: Wt Readings from Last 1 Encounters: 01/12/19 (!) 394 lb (178.7 kg) Mental Status: {IP PT MENTAL STATUS:89620} IV Access: { JESSICA IV ACCESS:024922376} Nursing Mobility/ADLs: Walking {CHP DME ADLs:746195647} Transfer {CHP DME ADLs:878157238} Bathing {CHP DME ADLs:726055113} Dressing {CHP DME ADLs:172293002} Toileting {CHP DME ADLs:473853360} Feeding {CHP DME ADLs:810148935} Electronic Publisher {P DME ADLs:979274028} Med Delivery { JESSICA MED Delivery:877505798} Wound Care Documentation and Therapy: Elimination: Continence: Bowel: {YES / NO:} Bladder: {YES / NO:} Urinary Catheter: {Urinary Catheter:364680383} Colostomy/Ileostomy/Ileal Conduit: {YES / NO:28890} Date of Last BM: No intake or output data in the 24 hours ending 01/13/19 1418 No intake/output data recorded. Safety Concerns: { JESSICA Safety Concerns:376230118} Impairments/Disabilities: { JESSICA Impairments/Disabilities:798621917} Nutrition Therapy: Current Nutrition Therapy: { JESSICA Diet List:079396782} Routes of Feeding: {CHP DME Other Feedings:462995757} Liquids: {Courtroom Clerk liquid thickness:03758} Daily Fluid Restriction: {CHP DME Yes amt example:602005068} Last Modified Barium Swallow with Video (Video Swallowing Test): {Done Not Done Date:036508759} Treatments at the Time of Hospital Discharge: Respiratory Treatments: Oxygen Therapy: {Therapy; copd oxygen:11649} Ventilator: { CC Vent List:041614820} Rehab Therapies: {THERAPEUTIC INTERVENTION:4854251391} Weight Bearing Status/Restrictions: {[facility] Weight Bearin} Other Medical Equipment (for information only, NOT a DME order): {EQUIPMENT:417998118} Other Treatments: Patient's personal belongings (please select all that are sent with patient): {[facility] DME Belongings:317648326} RN SIGNATURE: {Esignature:611019888} CASE MANAGEMENT/SOCIAL WORK SECTION Inpatient Status Date: Readmission Risk Assessment Score: Readmission Risk Risk of Unplanned Readmission: 0 Discharging to Facility/ Agency Name: Address: Phone: Fax: Dialysis Facility (if applicable) Name: Address: Dialysis Schedule: Phone: Fax: Mold Maker Helper/Wagon Driver Salesperson signature: {Esignature:700490451} PHYSICIAN SECTION Prognosis: {Prognosis:4915247345} Condition at Discharge: { Patient Condition:029898071} Rehab Potential (if transferring to Rehab): {Prognosis:1643061200} Recommended Labs or Other Treatments After Discharge: Physician Certification: I certify the above information and transfer of Kwabena Akers is necessary for the continuing treatment of the diagnosis listed and that he requires {Admit to Appropriate Level of Care:31662} for {GREATER/LESS:400981540} 30 days. Update Admission H&P: {CHP DME Changes in HandP:280997823} PHYSICIAN SIGNATURE: {Esignature:255721377} * Additional Instructions* Ava Enriquez RN - [...] [address] [place] [id number] Relation: Spouse Past Surgical History: Past Surgical [...] yrs and older) 11/23/2017 Pneumococcal Conjugate 13-valent (Inhmlek89) 11/23/2017 Pneumococcal Polysaccharide (Fmbunqbgi15) 03/13/2012 Active Problems: Patient Active Problem List Diagnosis Code Essential hypertension I10 Type 2 diabetes mellitus without complication, without long-term current use of insulin (HCC) E11.9 Hyperlipidemia E78.5 Acute pain of right hip M25.551 Primary osteoarthritis of right hip M16.11 Osteoarthritis of knee M17.10 Degenerative arthritis of hip M16.9 Depression, major, in remission ([facility]) F32.5 Numbness R20.0 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 Facial droop R29.810 Diabetes mellitus due to underlying condition with hyperglycemia, without long- term current use of insulin ([facility]) E08.65 Morbid obesity with BMI of 50.0-59.9, adult ([facility]) E66.01, Z68.43 Gluteal abscess L02.31 Isolation/Infection: Isolation [...] MENTAL STATUS:} IV Access: { JESSICA IV ACCESS:626375950} Nursing Mobility/ADLs: Walking {CHP DME ADLs:930540463} Transfer {CHP DME ADLs:336144041} Bathing {CHP DME ADLs:681196862} Dressing {CHP DME ADLs:681638797} Toileting {CHP DME ADLs:078228630} Feeding {P DME ADLs:148786952} Electronic Publisher {P DME ADLs:115773815} Med Delivery { JESSICA MED Delivery:874857858} Wound Care Documentation and Therapy: Elimination: Continence: Bowel: {YES / NO:} Bladder: {YES / NO:} Urinary Catheter: {Urinary Catheter:609000209} Colostomy/Ileostomy/Ileal Conduit: {YES / NO:} Date of Last BM: No intake or output data in the 24 hours ending 01/14/19 1045 No intake/output data recorded. Safety Concerns: { JESSICA Safety Concerns:524305803} Impairments/Disabilities: { JESSICA Impairments/Disabilities:232556938} Nutrition Therapy: Current Nutrition Therapy: { JESSICA Diet List:554609942} Routes of Feeding: {CHP DME Other Feedings:091069936} Liquids: {Courtroom Clerk liquid thickness:88545} Daily Fluid Restriction: {CHP DME Yes amt example:498224326} Last Modified Barium Swallow with Video (Video Swallowing Test): {Done Not Done Date:} Treatments at the Time of Hospital Discharge: Respiratory Treatments: Oxygen Therapy: {Therapy; copd oxygen:95145} Ventilator: { CC Vent List:324666003} Rehab Therapies: {THERAPEUTIC INTERVENTION:6944026288} Weight Bearing Status/Restrictions: { CC Weight Bearin} Other Medical Equipment (for information only, NOT a DME order): {EQUIPMENT:245223079} Other Treatments: Patient's personal belongings (please select all that are sent with patient): {[facility] DME Belongings:468995124} RN SIGNATURE: {Esignature:320330500} CASE MANAGEMENT/SOCIAL WORK SECTION Inpatient Status Date: Readmission Risk Assessment Score: Readmission Risk Risk of Unplanned Readmission: 0 Discharging to Facility/ Agency Name: Address: Phone: Fax: Dialysis Facility (if applicable) Name: Address: Dialysis Schedule: Phone: Fax: Mold Maker Helper/Wagon Driver Salesperson signature: {Esignature:[id number]} PHYSICIAN SECTION Prognosis: {Prognosis:4991503521} Condition at Discharge: { Patient Condition:140773787} Rehab Potential (if transferring to Rehab): {Prognosis:7090544174} Recommended Labs or Other Treatments After Discharge: Physician Certification: I certify the above information and transfer of Kwabena Akers is necessary for the continuing treatment of the diagnosis listed and that he requires {Admit to Appropriate Level of Care:02423} for {GREATER/LESS:095024094} 30 days. Update Admission H&P: {CHP DME Changes in HandP:117316538} PHYSICIAN SIGNATURE: {Esignature:[id number]} * Additional Instructions* Ava Enriquez RN - [...] 01/15/2019 Outpatient Discharge Instructions for Wounds [address] [address] You are advised to carry out the [...] directions explained to pt, as well as millroom supervisor who makes arrangements for pt to go to [facility] for daily dressing changes at 1000. [...] CT CHEST W CONTRAST Marisol Carr MD [address] [place], [place] [address] [place] [address] Referral ID Status Reason Start Date Expiration Date V isits Requested Visits Authorized [id number] Not Required - RTA 03/18/2023 03/17/2024 1 1 Additional Source Comments (unrecognized sect ion and content) No Status Records FoundNo Status Records FoundNo Status Records FoundNo Status Records Found INFORMATION SOURCE (unrecogn ized section and content) DATE CREATED AUTHOR 08/16/2017 [facility] DATE CREATED AUTHOR AUTHOR'S ORGANIZ ATION 11/18/2017 [facility] DATE CREATED AUTHOR AUTHOR'S ORGANIZ ATION 01/17/2019 [facility] DATE CREATED AUTHOR AUTHOR'S ORGANIZ ATION 04/04/2023 [facility] pital Reason for Visit (unrecogniz ed section and content) Status Reason Specialty Diagnoses / Procedures Referre d By Contact Referred To Contact Diagnoses nancy rectal abscess Procedures MN I&D RECTAL SUBMUCOSAL ABSCESS RECTAL PERIRECTAL INCISION AND DRAINAGE Jessica Cooper MD [address] [place] [address] [address] [place] [address] [facility] Specialty Diagnoses / Procedures Referred By Contac t Referred To Contact Radiology Diagnoses Abnormal x-ray Lung density on x-ray Procedures CT CHEST W CONTRAST Marisol Carr MD [address] [place], [place] [address] [place] [address] Referral ID Status Reason Start Date Expiration Date V isits Requested Visits Authorized [id number] Not Required - RTA 03/18/2023 03/17/2024 1 1 Care Teams (unrecognized sec tion and content) Dough Molder Relationship Specialty Start Date End Date Phil Molina MD [address] [place] [address] [address] [place] [address] PCP - General 03/22/11 Dough Molder Relationship Specialty Start Date End Date Phil Molina MD [address] [place] [address] [address] [place] [address] PCP - General 03/22/11 Dough Molder Relationship Specialty Start Date End Date Phil Molina MD [address] [place] [address] [address] [place] [address] PCP - General 03/22/11 Dough Molder Relationship Specialty Start Date End Date Marisol Carr MD [address] [place] [id number] PCP - General Family Medicine 06/15/22 Dough Molder Relationship Specialty Start Date End Date Marisol Carr MD [address] [place] [address] [address] [place], [place] [phone] PCP - General Family Medicine 06/15/22 FOR [...] BE BASED ON THE PRIMARY CLINICAL RECORDS. [facility] [facility]. provides no warranty or guarantee of the accuracy or completeness of information in this document.
--- NOTE | 2023-04-19 07:30 | NM_ITS ---
Patient Name: DAPHNEY AKERS MR#: [id number] : 1950 Exam Date: 04/19/2023 Ordering Doctor: CIRA QUIJANO M.D. RADIOLOGY REPORT PROCEDURE: NM JOSH PERF SPECT REST STR COMPARISON: None. INDICATIONS: DYSPNEA TECHNIQUE: Exam Description: Stress/Rest two day protocol gated SPECT Rest Imagin.3 mCi Tc-99m Cardiolite IV on 04/21/2023 Stress Imaging 25.5 mCi Tc-99m Cardiolite IV on 04/19/2023 Exercise Protocol: 0.4 mg Lexiscan given IV Heart Rate (bpm): Rest: 75 Max: 90 PMHR: 60 Blood Pressure: Rest: 138/70 Max: 142/70 Symptoms: Rest and peak stress ECG findings were normal and the exercise portion of the study was normal per attending physician Dr. Jansen . For more details please see separate cardiac stress test report. FINDINGS: QUALITY OF STUDY: Good. PERFUSION DEFECT: LOCATION: Apical anterior. Apical inferior. [place]. SIZE: Medium (3-4 segments). SEVERITY: Moderate. TYPE: Mixed. WALL MOTION: Normal. LV SIZE: Enlarged; EDV 147 mL. TID / TCD: None; 1.0 LVEF: Normal. Calculated EF 63%. SUMMARY: Myocardial perfusion imaging study has ABNORMAL findings. CONCLUSION: 1. Small area of moderately decreased uptake in the apex with partial redistribution suggesting an area of reversible ischemia, LAD distribution 2. Dilated left ventricle, EDV 147 milliliters 3. Normal exercise test Dictated by: Barak Montero MD on 04/21/2023 at 10:02 Approved by: Barak Montero MD on 04/21/2023 at 10:04
[2023-04-19] MEDS: REGADENOSON 0.4 MG/5 ML SYRINGE 0.400000000000000022 MG IV (07:48)
== END 2023-04-19 07:01 | disposition home or self-care (01) ==
LOC: CARD 07:00
PROVIDERS: Visit Provider Internal Medicine Cardiovascular Disease
DX: R06.09 Other forms of dyspnea (principal)
CPT/HCPCS: 78452; 93017; A9500; J2785

== ENCOUNTER 2023-04-21 06:48 | Outpatient (OUT) | payer MEDICARE, OTHER, SELFPAY ==
--- OUTSIDE RECORDS SUMMARY | 2023-04-21 06:52 | XMS_ITS | CCD ---
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 Name Role Phone ONEIL WILLIAMSON Unavailable Unavailable GETERRELLINGONEIL Unavailable Unavailable GETERRELLINGONEIL Unavailable Unavailable MOLINA, DIPAKKUMAR Unavailable Unavailable GETERRELLINGONEIL Unavailable Unavailable GETERRELLINGONEIL Unavailable Unavailable MOLINA, DIPAKKUMAR Unavailable Unavailable MOLINA, DIPAKKUMAR Unavailable Unavailable [place] Unavailable Unavailable ONEIL WILLIAMSON Unavailable Unavailable GETERRELLINGONEIL [...] QUEEN, ANEESH MUMTAZ Unavailable Unavaila ble QUEEN, NAEESH MUMTAZ Unavailable Unavaila ble Molina, Dipakkumar P Primary Care Provider KUIVINEN JESSICA P Admitting Unavailable KUIVINEN JESSICA P Attending Unavailable MOLINA, DIPAKKUMAR P Primary Care Unavailable Molina, Dipakkumar P Primary Care Provider Phil Molina MD Primary Care Provider Phil Molina MD Primary Care Provider [phone] Marisol Carr MD Primary Care Provider MARISOL [...] Attending Unavailable IACOB, MARISOL Referring Unavailable IACOB, MARIOSL Primary Care Unavailable MOLINA, DIPAKKUMAR P Referring Unavailable MOLINA, DIPAKKUMAR P Primary Care Unavailable IACOB, MARISOL Attending Unavailable IACOB, MARISOL Referring Unavailable IACOB, MARISOL Primary Care Unavailable IACOB, MARISOL Attending Unavailable IACOB, MARIOSL Referring Unavailable IACOB, MARISOL Primary Care Unavailable [...] Drug Class(es) Dates Sig (Normalized) Sig (Original) [id number] 200 actuat albuterol 0.09 mg/actuat metered dose [...] hyperglycemia, without long-term current use of insulin ([facility]) 1 Units by Does not apply route 2 times daily 1 kit 0 08/26/2022 Active Start: 03-31-2018 Blood Glucose Monitoring Suppl w/Device KIT Indications: Diabetes mellitus due to underlying condition with hyperglycemia, without long-term current use of insulin ([facility]) 1 Units by Does not [...] complication, with long-term current use of insulin ([facility]) Inject 30 Units into the skin nightly 5 pen 3 08/28/2021 Active Start: 06-25-2021 insulin detemi r (LEVEMIR FLEXTOUCH) 100 UNIT/ML injection pen Indications: Type 2 diabetes mellitus without complication, without long-term current use of insulin ([facility]) Inject 20 Units into the [...] 01-12-2019 morphine (PF) injection 1 mg nystatin [id number] unt/ml / triamcinolone acetonide 1 mg/ml topical cream (6 sources) Polyene Antifungal, Corticosteroid Start: 11-17-2016 nystatin-triamcin olone (MYCOLOG II) 212455-4.1 UNIT/GM-% cream Apply topically 2 times daily [...] / UNK(Unknown) Onset: 10-12-2016 Unclassified (1 source) care home (current) use of oral hypoglycemic drugs; Translations: [[employer]ENT [employer] STORAGE (CURRENT) USE OF ORAL HYPOGLYCEMIC DRUGS] Onset: [...] 09-16-2022 09-16-2022 Episodic Other aftercare (3 sources) care home (current) use of aspirin; Translations: [Other jail (current) drug therapy] Onset: 10-12-2016 Episodic Other aftercare (1 source) care home (current) use of insulin; Translations: [care home (current) use of insulin] Onset: 10-20-2022 Episodic [...] Sukhwinder Man MD 04/02/23 Final result Normal [facility] CT Chest W contrast Eboin No acute cardiopulmo nary process. [facility] RIS CONSOLIDATED EXAMINATION: CT OF THE CHEST [...] Tissues/Bones: No acute bony abnormalities are noted. [facility] CONSOLIDATED Sukhwinder Man MD - 04/02/2023 [...] are noted. IMPRESSION: No acute cardiopulmonary process. [facility] CT Chest W contrast IVOrdere d By: Sukhwinder Man on 04-02-2023 [facility] Work Phone: CBC with Auto Differentialon 03-31-2023 Basophils (Bld) [#/Vol] 0.14 10*3/uL [facility] Basophils/100 WBC (Bld) 1 % 0 - 2 % [facility] Eosinophils (Bld) [#/Vol] 0.65 10*3/uL High [facility] Eosinophils/100 WBC (Bld) 6 % High 1 - 4 % [facility] Erythrocyte distribution width (RBC) [Ratio] 13.2 % 11.8 - 14.4 % [facility] Hematocrit (Bld) [Volume fraction] 40.0 % Low 40.7 - 50.3 % [facility] Hemoglobin (Bld) [Mass/Vol] 12.9 g/dL Low 13.0 - 17.0 g/dL [facility] Immature granulocytes (Bld) [#/Vol] 0.08 10*3/uL [facility] Immature granulocytes/100 WBC (Bld) 1 % High 0 [facility] Interpretation and review of laboratory results Abnormal [facility] Lymphocytes/100 WBC (Bld) 23 % Low 24 - 43 % [facility] Lymphocytes/100 WBC (Bld) 2.37 % [facility] MCH (RBC) [Entitic mass] 28.9 pg 25.2 - 33.5 pg [facility] MCHC (RBC) [Mass/Vol] 32.3 g/dL 28.4 - 34.8 g/dL [facility] MCV (RBC) [Entitic vol] 89.7 fL 82.6 - 102.9 fL [facility] Monocytes/100 WBC (Bld) 8 % 3 - 12 % [facility] Monocytes/100 WBC (Bld) 0.81 % [facility] Neutrophils/100 WBC (Bld) 61 % 36 - 65 % [facility] Nucleated RBC/100 WBC (Bld) [Ratio] 0.0 % 0.0 per 100 WBC [facility] Platelet mean volume (Bld) [Entitic vol] 8.8 fL 8.1 - 13.5 fL [facility] Platelets (Bld) [#/Vol] 440 10*3/uL [facility] RBC (Bld) [#/Vol] 4.46 10*6/uL 4.21 - 5.7 7 m/uL [facility] Segmented neutrophils/100 WBC (Bld) 6.41 % [facility] WBC other (Bld) [#/Vol] 10.5 [facility] CBC with Diffon 03-31-2023 Abs. Basophil 0.14 k/uL Normal 0.00-0.20 [facility] Comment on above: Performed By: #### U RNMAB #### [facility] [employer] [address] [place] [address] Slip Filler: Dexter Madera MD Abs.Imm.Granulocyt e 0.08 k/uL Normal 0.00-0.30 [facility] Comment on above: Performed By: #### U RNMAB #### [facility] [address] [place], [place] [id number] Slip Filler: Dexter Madera MD Abs.Neutrophil (Seg) 6.41 k/uL Normal 1.50-8.10 [facility] Comment on above: Performed By: #### U RNMAB #### [facility] [employer] [address] [place], [place] [id number] Slip Filler: Dexter Madera MD Basophils/100 WBC (Bld) 1 % Normal 0-2 [facility] Comment on above: Performed By: #### U RNMAB #### [address] [address] Slip Filler: Dexter Madera MD Eosinophils (Bld) [#/Vol] 0.65 10*3/uL High 0.00-0.44 [facility] Comment on above: Performed By: #### U RNMAB #### [address] [address] Slip Filler: Dexter Madera MD Eosinophils/100 WBC (Bld) 6 % High 1-4 [facility] Comment on above: Performed By: #### U RNMAB #### [address] [address] Slip Filler: Dexter Madera MD Erythrocyte distribution width (RBC) [Ratio] 13.2 % Normal 11.8-14.4 [facility] Comment on above: Performed By: #### U RNMAB #### [address] [address] Slip Filler: Dexter Madera MD Hematocrit (Bld) [Volume fraction] 40.0 % Low 40.7-50.3 [facility] Comment on above: Performed By: #### U RNMAB #### [address] [address] Slip Filler: Dexter Madera MD Hemoglobin (Bld) [Mass/Vol] 12.9 g/dL Low 13.0-17.0 [facility] Comment on above: Performed By: #### U RNMAB #### [address] [address] Slip Filler: Dexter Madera MD Immature granulocytes/100 WBC (Bld) 1 % High 0 [facility] Comment on above: Performed By: #### U RNMAB #### [address] [address] Slip Filler: Dexter Madera MD Lymphocytes (Bld) [#/Vol] 2.37 10*3/uL Normal 1.10-3.70 [facility] Comment on above: Performed By: #### U RNMAB #### [address] [address] Slip Filler: Dexter Madera MD Lymphocytes/100 WBC (Bld) 23 % Low 24-43 [facility] Comment on above: Performed By: #### U RNMAB #### [place] [address] Slip Filler: Dexter Madera MD MCH (RBC) [Entitic mass] 28.9 pg Normal 25.2-33.5 [facility] Comment on above: Performed By: #### U RNMAB #### [place] [address] Slip Filler: Dexter Madera MD MCHC (RBC) [Mass/Vol] 32.3 g/dL Normal 28.4-34.8 [facility] Comment on above: Performed By: #### U RNMAB #### [place] [address] Slip Filler: Dexter Madera MD MCV (RBC) [Entitic vol] 89.7 fL Normal 82.6-102.9 [facility] Comment on above: Performed By: #### U RNMAB #### [place] [address] Slip Filler: Dexter Madera MD Monocytes (Bld) [#/Vol] 0.81 10*3/uL Normal 0.10-1.20 [facility] Comment on above: Performed By: #### U RNMAB #### [address] [address] Slip Filler: Dexter Madera MD Monocytes/100 WBC (Bld) 8 % Normal 3-12 [facility] Comment on above: Performed By: #### U RNMAB #### [id number] [place] [address] Slip Filler: Dexter Madera MD Neutrophil (Seg) 61 % Normal 36-65 [facility] Comment on above: Performed By: #### U RNMAB #### [address] [address] Slip Filler: Dexter Madera MD NRBC Automated 0.0 per 100 WBC Normal 0.0 [facility] Comment on above: Performed By: #### U RNMAB #### [address] [address] Slip Filler: Dexter Madera MD Platelet mean volume (Bld) [Entitic vol] 8.8 fL Normal 8.1-13.5 [facility] Comment on above: Performed By: #### U RNMAB #### [address] [address] Slip Filler: Dexter Madera MD Platelets (Bld) [#/Vol] 440 10*3/uL Normal 138-453 [facility] Comment on above: Performed By: #### U RNMAB #### [address] [address] Slip Filler: Dexter Madera MD RBC (Bld) [#/Vol] 4.46 10*6/uL Normal 4.21-5.77 [facility] Comment on above: Performed By: #### U RNMAB #### [address] [address] Slip Filler: Dexter Madera MD WBC (Bld) [#/Vol] 10.5 10*3/uL Normal 3.5-11.3 [facility] Comment on above: Performed By: #### U RNMAB #### [address] [address] Slip Filler: Dexter Madera MD CT Chest W contrast Eboni Radiology Study observation (narrative) LYNN MANCIA [facility] Metabolic Profon 2023 Albumin [Mass/Vol] 4.2 g/dL Normal 3.5-5.2 [facility] Comment on above: Performed By: #### U RNMAB #### [address] [address] Slip Filler: Dexter Madera MD Albumin/Glob Ratio 1.3 Normal 1.0-2.5 [facility] Comment on above: Performed By: #### U RNMAB #### [address] [address] Slip Filler: Dexter Madera MD Alkaline Phos 71 U/L Normal 40-129 [facility] Comment on above: Performed By: #### U RNMAB #### [address] [address] Slip Filler: Dexter Madera MD ALT [Catalytic activity/Vol] 27 U/L Normal 5-41 [facility] Comment on above: Performed By: #### U RNMAB #### [address] [address] Slip Filler: Dexter Madera MD Anion gap [Moles/Vol] 7 mmol/L Low 9-17 [facility] Comment on above: Performed By: #### U RNMAB #### [address] [address] Slip Filler: Dexter Madera MD AST [Catalytic activity/Vol] 21 U/L Normal <40 [facility] Comment on above: Performed By: #### U RNMAB #### [address] [address] Slip Filler: Dexter Madera MD Bilirubin [Mass/Vol] 0.3 mg/dL Normal 0.3-1.2 [facility] Comment on above: Performed By: #### U RNMAB #### [facility] [address] [place] [address] Slip Filler: Dexter Madera MD BUN/CRE Ratio 20 Normal 9-20 [facility] Comment on above: Performed By: #### U RNMAB #### [address] [place] [address] Slip Filler: Dexter Madera MD Calcium [Mass/Vol] 9.8 mg/dL Normal 8.6-10.4 [facility] Comment on above: Performed By: #### U RNMAB #### [address] [address] Slip Filler: Dexter Madera MD Chloride [Moles/Vol] 102 mmol/L Normal 98-107 [facility] Comment on above: Performed By: #### U RNMAB #### [address] [address] Slip Filler: Dexter Madera MD CO2 [Moles/Vol] 31 mmol/L Normal 20-31 [facility] Comment on above: Performed By: #### U RNMAB #### [address] [address] Slip Filler: Dexter Madera MD Creatinine [Mass/Vol] 0.7 mg/dL Normal 0.7-1.2 [facility] Comment on above: Performed By: #### U RNMAB #### [address] [address] Slip Filler: Dexter Madear MD GFR/1.73 sq M.predicted among non-blacks MDRD (S/P/Bld) [Vol rate/Area] mL/min/{1.73_m2} Normal >60 [facility] Comment on above: Result Comment: These results [...] secretion. Performed By: #### U RNMAB #### [facility] [address] [place] [address] Slip Filler: Dexter Madera MD Glucose [Mass/Vol] 147 mg/dL High 70-99 [facility] Comment on above: Performed By: #### U RNMAB #### [facility] [address] [place] [address] Slip Filler: Dexter Madera MD Potassium [Moles/Vol] 4.1 mmol/L Normal 3.7-5.3 [facility] Comment on above: Performed By: #### U RNMAB #### [facility] [address] [place] [address] Slip Filler: Dexter Madera MD Protein [Mass/Vol] 7.5 g/dL Normal 6.4-8.3 [facility] Comment on above: Performed By: #### U RNMAB #### [facility] [address] [place] [address] Slip Filler: Dexter Madera MD Sodium [Moles/Vol] 140 mmol/L Normal 135-144 [facility] Comment on above: Performed By: #### U RNMAB #### [employer] [address] [place] [address] Slip Filler: Dexter Madera MD Urea nitrogen [Mass/Vol] 14 mg/dL Normal 8-23 [facility] Comment on above: Performed By: #### U RNMAB #### [employer] [address] [place] [address] Slip Filler: Dexter Madera MD Comprehensive Metabolic Pane [facility] 03-31-2023 Albumin [Mass/Vol] 4.2 g/dL 3.5 - 5.2 g/dL [facility] Albumin/Globulin [Mass ratio] 1.3 {ratio} 1.0 - 2.5 [facility] ALP [Catalytic activity/Vol] 71 U/L 40 - 129 U/L [facility] ALT [Catalytic activity/Vol] 27 U/L 5 - 41 U/L [facility] Anion gap [Moles/Vol] 7 mmol/L Low 9 - 17 mmol/L [facility] AST [Catalytic activity/Vol] 21 U/L NINF - 40 U/L [facility] Bilirubin [Mass/Vol] 0.3 mg/dL 0.3 - 1.2 mg/dL [facility] Calcium [Mass/Vol] 9.8 mg/dL 8.6 - 10. 4 mg/dL [facility] Chloride [Moles/Vol] 102 mmol/L 98 - 107 mmol/L [facility] CO2 [Moles/Vol] 31 mmol/L 20 - 31 mmol/L [facility] Creatinine [Mass/Vol] 0.7 mg/dL 0.7 - 1.2 mg/dL [facility] GFR/1.73 sq M.predicted MDRD (S/P/Bld) [Vol rate/Area] - PINF [facility] Comment on above: These results are not [...] 147 mg/dL High 70 - 99 mg/dL [facility] Interpretation and review of laboratory results Abnormal [facility] Potassium [Moles/Vol] 4.1 mmol/L 3.7 - 5.3 mmol/L [facility] Protein [Mass/Vol] 7.5 g/dL 6.4 - 8.3 g/dL [facility] Sodium [Moles/Vol] 140 mmol/L 135 - 144 mmol/L [facility] Urea nitrogen [Mass/Vol] 14 mg/dL 8 - 23 mg/dL [facility] Urea nitrogen/Creatinin e [Mass ratio] 20 mg/mg 9 - 20 [facility] Lipid Panelon 03-31-2023 Cholesterol [Mass/Vol] 141 mg/dL NINF - 200 mg/dL [facility] Comment on above: Cholesterol Guidelines: <200 Desirable 200-240 Borderline >240 Undesirable Cholesterol in HDL [Mass/Vol] 34 mg/dL Low 40 - PINF mg/dL [facility] Comment on above: HDL Guidelines: <40 Undesirable 40-59 Borderline >59 Desirable Cholesterol in LDL [Mass/Vol] 77 mg/dL 0 - 130 mg/dL [facility] Comment on above: LDL Guidelines: <100 Desirable 100-129 Near to/above Desirable 130-159 Borderline >159 Undesirable Direct (measured) LDL and calculated LDL are not interchangeable tests. Cholesterol.total/ Cholesterol in HDL [Mass ratio] 4.1 {ratio} NINF - 5 [facility] Interpretation and review of laboratory results Abnormal [facility] Triglyceride [Mass/Vol] 148 mg/dL NINF - 150 mg/dL [facility] Comment on above: Triglyceride Guidelines: <150 Desirable 150-199 Borderline 200-499 High >499 Very high Based on AHA Guidelines for fasting triglyceride, November 2011. [facility] Lipid Profileon 03-31-2023 Cholesterol [Mass/Vol] 141 mg/dL Normal <200 [facility] Comment on above: Result Comment: Cholesterol Guidelines: <200 Desirable 200-240 Borderline >240 Undesirable Performed By: #### L IPR #### [facility] [id number] Slip Filler: Dexter Madera MD Cholesterol in HDL [Mass/Vol] 34 mg/dL Low >40 [facility] Comment on above: Result Comment: HDL Guidelines: <40 Undesirable 40-59 Borderline >59 Desirable Performed By: #### L IPR #### [employer] [address] [place], [place] [id number] Slip Filler: Dexter Madera MD Cholesterol in LDL [Mass/Vol] 77 mg/dL Normal 0-130 [facility] Comment on above: Result Comment: LDL Guidelines: <100 Desirable 100-129 Near to/above Desirable 130-159 Borderline >159 Undesirable Direct (measured) LDL and calculated LDL are not interchangeable tests. Performed By: #### L IPR #### [address] [address] Slip Filler: Dexter Madera MD Cholesterol.total/ Cholesterol in HDL [Mass ratio] 4.1 {ratio} Normal <5 [facility] Comment on above: Performed By: #### L IPR #### [address] [address] Slip Filler: Dexter Madera MD Triglyceride [Mass/Vol] 148 mg/dL Normal <150 [facility] Comment on above: Result Comment: Triglyceride Guidelines: <150 Desirable 150-199 Borderline 200-499 High >499 Very high Based on AHA Guidelines for fasting triglyceride, November 2011. Performed By: #### L IPR #### [address] [address] Slip Filler: Dexter Madera MD Hemoglobin A1Con 02-10-2023 Glucose [Mass/Vol] 186 mg/dL Normal [facility] Comment on above: Result Comment: The ADA and AACC recommend providing the estimated average glucose result to permit better patient understanding of their HBA1c result. Performed By: #### G LYHGB #### [address] [address] Slip Filler: Dexter Madera MD HbA1c (Bld) [Mass fraction] 8.1 % High 4.0-6.0 [facility] Comment on above: Performed By: #### G LYHGB #### [address] [address] Slip Filler: Dexter Madera MD XR HAND RIGHT (MIN [...] Dhaval Lopez MD 12/23/22 Final result Normal [facility] Hemoglobin A1Con 10-28-2022 Glucose [Mass/Vol] 217 mg/dL Normal [facility] Comment on above: Result Comment: The ADA and AACC recommend providing the estimated average glucose result to permit better patient understanding of their HBA1c result. Performed By: #### C P, CDP #### [facility] [address] [place] [address] Dr. [place] [id number] Slip Filler: Barak Garcia MD #### GLYHGB #### [place] [id number] Slip Filler: Dexter Madera MD HbA1c (Bld) [Mass fraction] 9.2 % High 4.0-6.0 [facility] Comment on above: Performed By: #### C P, CDP #### [address] [place] [address] Slip Filler: Barak Garcia MD #### GLYHGB #### [place] [id number] Slip Filler: Dexter Madera MD CBC with Diffon 10-27-2022 Abs. Basophil 0.12 k/uL Normal 0.00-0.20 [facility] Comment on above: Performed By: #### C P, CDP #### [facility] [address] [place] [address] [place] [address] Slip Filler: Barak Garcia MD #### GLYHGB #### [address] [id number] Slip Filler: Dexter Madera MD Abs.Imm.Granulocyt e 0.03 k/uL Normal 0.00-0.30 [facility] Comment on above: Performed By: #### C P, CDP #### [address] [place] [address] Slip Filler: Barak Garcia MD #### GLYHGB #### [place] [address] Slip Filler: Dexter Madera MD Abs.Neutrophil (Seg) 7.42 k/uL Normal 1.50-8.10 [facility] Comment on above: Performed By: #### C P, CDP #### [address] [place] [id number] ( Slip Filler: Barak Garcia MD #### GLYHGB #### [place] [address] Slip Filler: Dexter Madera MD Basophils/100 WBC (Bld) 1 % Normal 0-2 [facility] Comment on above: Performed By: #### C P, CDP #### [address] [place] [address] Slip Filler: Barak Garcia MD #### GLYHGB #### [place] [address] Slip Filler: Dexter Madera MD Eosinophils (Bld) [#/Vol] 0.66 10*3/uL High 0.00-0.44 [facility] Comment on above: Performed By: #### C P, CDP #### [address] [place] [address] Slip Filler: Barak Garcia MD #### GLYHGB #### [address] [address] Slip Filler: Dexter Madera MD Eosinophils/100 WBC (Bld) 6 % High 1-4 [facility] Comment on above: Performed By: #### C P, CDP #### [facility] [address] [place], [place] [id number] Slip Filler: Barak Garcia MD #### GLYHGB #### [address] [id number] Slip Filler: Dexter Madera MD Erythrocyte distribution width (RBC) [Ratio] 13.6 % Normal 11.8-14.4 [facility] Comment on above: Performed By: #### C P, CDP #### [facility] [address] [place] [address] Slip Filler: Barak Garcia MD #### GLYHGB #### [address] [id number] Slip Filler: Dexter Madera MD Hematocrit (Bld) [Volume fraction] 40.6 % Low 40.7-50.3 [facility] Comment on above: Performed By: #### C P, CDP #### [facility] [address] [place], [place] [phone] Slip Filler: Barak Garcia MD #### GLYHGB #### [address] [id number] Slip Filler: Dexter Madera MD Hemoglobin (Bld) [Mass/Vol] 13.6 g/dL Normal 13.0-17.0 [facility] Comment on above: Performed By: #### C P, CDP #### [facility] [address] [place], [place] [phone] Slip Filler: Barak Garcia MD #### GLYHGB #### [address] [id number] Slip Filler: Dexter Madera MD Immature granulocytes/100 WBC (Bld) 0 % Normal 0 [facility] Comment on above: Performed By: #### C P, CDP #### [facility] [address] [place], [place] [id number] Slip Filler: Barak Garcia MD #### GLYHGB #### [address] [id number] Slip Filler: Dexter Madera MD Lymphocytes (Bld) [#/Vol] 2.09 10*3/uL Normal 1.10-3.70 [facility] Comment on above: Performed By: #### C P, CDP #### [facility] [address] [place], [place] [phone] Slip Filler: Barak Garcia MD #### GLYHGB #### [address] [phone] Slip Filler: Dexter Madera MD Lymphocytes/100 WBC (Bld) 19 % Low 24-43 [facility] Comment on above: Performed By: #### C P, CDP #### [facility] [address] [place], [place] [phone] Slip Filler: Barak Garcia MD #### GLYHGB #### [address] [address] [place] [address] Slip Filler: Dexter Madera MD MCH (RBC) [Entitic mass] 29.4 pg Normal 25.2-33.5 [facility] Comment on above: Performed By: #### C P, CDP #### [facility] [address] [place], [place] [id number] Slip Filler: Barak Garcia MD #### GLYHGB #### [address] [address] Slip Filler: Dexter Madera MD MCHC (RBC) [Mass/Vol] 33.5 g/dL Normal 28.4-34.8 [facility] Comment on above: Performed By: #### C P, CDP #### [facility] [address] [place], [place] [id number] Slip Filler: Barak Garcia MD #### GLYHGB #### [address] [id number] Slip Filler: Dexter Madera MD MCV (RBC) [Entitic vol] 87.9 fL Normal 82.6-102.9 [facility] Comment on above: Performed By: #### C P, CDP #### [facility] [address] [place] [address] Dr. [place], [place] [id number] Slip Filler: Barak Garcia MD #### GLYHGB #### [address] [address] Slip Filler: Dexter Madera MD Monocytes (Bld) [#/Vol] 0.86 10*3/uL Normal 0.10-1.20 [facility] Comment on above: Performed By: #### C P, CDP #### [address] [place], [place] [id number] Slip Filler: Barak Garcia MD #### GLYHGB #### [address] [id number] Slip Filler: Dexter Madera MD Monocytes/100 WBC (Bld) 8 % Normal 3-12 [facility] Comment on above: Performed By: #### C P, CDP #### [address] [place], [place] [id number] Slip Filler: Barak Garcia MD #### GLYHGB #### [address] [address] Slip Filler: Dexter Madera MD Neutrophil (Seg) 66 % High 36-65 [facility] Comment on above: Performed By: #### C P, CDP #### [facility] [address] [place] [address] Dr. [place] 1976683 Slip Filler: Barak Garcia MD #### GLYHGB #### [address] [id number] Slip Filler: Dexter Madera MD NRBC Automated 0.0 per 100 WBC Normal 0.0 [facility] Comment on above: Performed By: #### C P, CDP #### [address] [place] 1976683 Slip Filler: Barak Garcia MD #### GLYHGB #### [place] [address] Slip Filler: Dexter Madera MD Platelet mean volume (Bld) [Entitic vol] 9.4 fL Normal 8.1-13.5 [facility] Comment on above: Performed By: #### C P, CDP #### [address] [place] 1976683 Slip Filler: Barak Garcia MD #### GLYHGB #### [place] [address] Slip Filler: Dexter Madera MD Platelets (Bld) [#/Vol] 389 10*3/uL Normal 138-453 [facility] Comment on above: Performed By: #### C P, CDP #### [address] [place] 1976683 Slip Filler: Barak Garcia MD #### GLYHGB #### [address] [id number] Slip Filler: Dexter Madera MD RBC (Bld) [#/Vol] 4.62 10*6/uL Normal 4.21-5.77 [facility] Comment on above: Performed By: #### C P, CDP #### [address] [place] 1976683 Slip Filler: Barak Garcia MD #### GLYHGB #### [place] [id number] [place] [address] Slip Filler: Dexter Madera MD WBC (Bld) [#/Vol] 11.2 10*3/uL Normal 3.5-11.3 [facility] Comment on above: Performed By: #### C P, CDP #### [facility] [address] [place] [address] [place], [place] [id number] Slip Filler: Barak Garcia MD #### GLYHGB #### [address] [address] Slip Filler: Dexter Madera MD Comp Metabolic Profon 2022 Albumin [Mass/Vol] 4.5 g/dL Normal 3.5-5.2 [facility] Comment on above: Performed By: #### C P, CDP #### [address] [place] [id number] Slip Filler: Barak Garcia MD #### GLYHGB #### [address] [address] Slip Filler: Dexter Madera MD Albumin/Glob Ratio 1.5 Normal 1.0-2.5 [facility] Comment on above: Performed By: #### C P, CDP #### [facility] [address] [place] [address] Dr. [place] 1976683 Slip Filler: Barak Garcia MD #### GLYHGB #### [place] [id number] [place] [address] Slip Filler: Dexter Madera MD Alkaline Phos 71 U/L Normal 40-129 [facility] Comment on above: Performed By: #### C P, CDP #### [facility] [address] [place] [address] [place] [address] Slip Filler: Barak Garcia MD #### GLYHGB #### [facility] [address] [place] [address] Slip Filler: Dexter Madera MD ALT [Catalytic activity/Vol] 30 U/L Normal 5-41 [facility] Comment on above: Performed By: #### C P, CDP #### [facility] [address] [place], [place] 6505983 Slip Filler: Barak Garcia MD #### GLYHGB #### [facility] [address] [place] [address] Slip Filler: Dexter Madera MD Anion gap [Moles/Vol] 12 mmol/L Normal 9-17 [facility] Comment on above: Performed By: #### C P, CDP #### [facility] [address] [place], [place] [id number] Slip Filler: Barak Garcia MD #### GLYHGB #### [address] [address] Slip Filler: Dexter Madera MD AST [Catalytic activity/Vol] 22 U/L Normal <40 [facility] Comment on above: Performed By: #### C P, CDP #### [facility] [address] [place], [place] 2620183 Slip Filler: Barak Garcia MD #### GLYHGB #### [facility] [address] [place] [address] Slip Filler: Dexter Madera MD Bilirubin [Mass/Vol] 0.3 mg/dL Normal 0.3-1.2 [facility] Comment on above: Performed By: #### C P, CDP #### [facility] [address] [place], [place] [id number] Slip Filler: Barak Garcia MD #### GLYHGB #### [address] [address] Slip Filler: Dexter Madera MD BUN/CRE Ratio 23 High 9-20 [facility] Comment on above: Performed By: #### C P, CDP #### [facility] [address] [place], [place] 4802783 Slip Filler: Barak Garcia MD #### GLYHGB #### [address] [address] Slip Filler: Dexter Madera MD Calcium [Mass/Vol] 9.9 mg/dL Normal 8.6-10.4 [facility] Comment on above: Performed By: #### C P, CDP #### [facility] [address] [place], [place] 9157583 Slip Filler: Barak Garcia MD #### GLYHGB #### [address] [address] Slip Filler: Dexter Madera MD Chloride [Moles/Vol] 103 mmol/L Normal 98-107 [facility] Comment on above: Performed By: #### C P, CDP #### [facility] [address] [place] [address] Dr. [place], [place] 1043583 Slip Filler: Barak Garcia MD #### GLYHGB #### [address] [address] Slip Filler: Dexter Madera MD CO2 [Moles/Vol] 26 mmol/L Normal 20-31 [facility] Comment on above: Performed By: #### C P, CDP #### [facility] [address] [place], [place] [id number] Slip Filler: Barak Garcia MD #### GLYHGB #### [address] [address] Slip Filler: Dexter Madera MD Creatinine [Mass/Vol] 0.8 mg/dL Normal 0.7-1.2 [facility] Comment on above: Performed By: #### C P, CDP #### [facility] [address] [place] [address] Slip Filler: Barak Garcia MD #### GLYHGB #### [address] [id number] Slip Filler: Dexter Madera MD GFR/1.73 sq M.predicted among non-blacks MDRD (S/P/Bld) [Vol rate/Area] mL/min/{1.73_m2} Normal >60 [facility] Comment on above: Result Comment: These results [...] Performed By: #### C P, CDP #### [address] [place], [place] [id number] Slip Filler: Barak Garcia MD #### GLYHGB #### [place] [id number] [place], [place] [phone] Slip Filler: Dexter Madera MD Glucose [Mass/Vol] 217 mg/dL High 70-99 [facility] Comment on above: Performed By: #### C P, CDP #### [facility] [address] [place], [place] 2883783 Slip Filler: Barak Garcia MD #### GLYHGB #### [address] [address] Slip Filler: Dexter Madera MD Potassium [Moles/Vol] 4.2 mmol/L Normal 3.7-5.3 [facility] Comment on above: Performed By: #### C P, CDP #### [facility] [address] [place], [place] 0860083 Slip Filler: Barak Garcia MD #### GLYHGB #### [address] [phone] Slip Filler: Dexter Madera MD Protein [Mass/Vol] 7.5 g/dL Normal 6.4-8.3 [facility] Comment on above: Performed By: #### C P, CDP #### [facility] [address] [place], [place] 3081583 Slip Filler: Barak Garcia MD #### GLYHGB #### [facility] [address] [place] [address] [phone] Slip Filler: Dexter Madera MD Sodium [Moles/Vol] 141 mmol/L Normal 135-144 [facility] Comment on above: Performed By: #### C P, CDP #### [facility] [address] [place] [address] [place], [place] 496[address] Slip Filler: Barak Garcia MD #### GLYHGB #### [address] [address] Slip Filler: Dexter Madera MD Urea nitrogen [Mass/Vol] 18 mg/dL Normal 8-23 [facility] Comment on above: Performed By: #### C P, CDP #### [facility] [address] [place] [address] [place], [place] 2483483 Slip Filler: Barak Garcia MD #### GLYHGB #### [address] [address] Slip Filler: Dexter Madera MD Lipid Profileon 10-27-2022 Cholesterol [Mass/Vol] 151 mg/dL Normal <200 [facility] Comment on above: Result Comment: Cholesterol Guidelines: <200 Desirable 200-240 Borderline >240 Undesirable Performed By: #### U RNMAB #### [facility] [place] [address] Slip Filler: Dexter Madera MD Cholesterol in HDL [Mass/Vol] 35 mg/dL Low >40 [facility] Comment on above: Result Comment: HDL Guidelines: <40 Undesirable 40-59 Borderline >59 Desirable Performed By: #### U RNMAB #### [address] [address] Slip Filler: Dexter Madera MD Cholesterol in LDL [Mass/Vol] 87 mg/dL Normal 0-130 [facility] Comment on above: Result Comment: LDL Guidelines: <100 Desirable 100-129 Near to/above Desirable 130-159 Borderline >159 Undesirable Direct (measured) LDL and calculated LDL are not interchangeable tests. Performed By: #### U RNMAB #### [facility] [address] [place] [address] Slip Filler: Dexter Madera MD Cholesterol.total/ Cholesterol in HDL [Mass ratio] 4.3 {ratio} Normal <5 [facility] Comment on above: Performed By: #### U RNMAB #### [facility] [address] [place] [address] Slip Filler: Dexter Madera MD Triglyceride [Mass/Vol] 143 mg/dL Normal <150 [facility] Comment on above: Result Comment: Triglyceride Guidelines: <150 Desirable 150-199 Borderline 200-499 High >499 Very high Based on AHA Guidelines for fasting triglyceride, November 2011. Performed By: #### U RNMAB #### [facility] [address] [place] [address] Slip Filler: Dexter Madera MD Microalb.,Random [employer]ron 2022 Creatinine [Mass/Vol] 116.4 mg/dL Normal 39.0-259.0 [facility] Comment on above: Performed By: #### U RNMAB #### [facility] [address] [place] [address] Slip Filler: Dexetr Madera MD Microalb/Creat Ratio 60 mcg/mg creat High <17 [facility] Comment on above: Performed By: #### U RNMAB #### [facility] [place], [place] 4258708 Slip Filler: Dexter Madera MD Microalbumin conc. 70 mg/L High <21 [facility] Comment on above: Performed By: #### U RNMAB #### [facility] [address] [place] [address] [id number] Slip Filler: Dexter Madera MD Surgical Pathologyon 023 Surgical Pathology (NOTE) Path Number: [id number] -- Diagnosis -- A. ABNORMAL SKIN GROWTH, [...] Microscopic Description Microscopic examination performed. Processing Lab: [address] [phone] Interpretation Performed at [address] [phone] SURGICAL PATHOLOGY CONSULTATION Patient Name: MARY AKERSMIKAEL Sanders Med Rec: [id number] [facility] [employer] [facility] ANATOMIC PATHOLOGY [address] [place] [phone] Normal [facility] Lipid Profileon 04-30-2022 Cholesterol [Mass/Vol] 167 mg/dL Normal <200 [facility] Comment on above: Result Comment: Cholesterol Guidelines: <200 Desirable 200-240 Borderline >240 Undesirable Performed By: #### U RNMAB #### [address] [id number] Slip Filler: Dexter Madera MD Cholesterol in HDL [Mass/Vol] 39 mg/dL Low >40 [facility] Comment on above: Result Comment: HDL Guidelines: <40 Undesirable 40-59 Borderline >59 Desirable Performed By: #### U RNMAB #### [facility] [address] [place] [address] [phone] Slip Filler: Dexter Madera MD Cholesterol in LDL [Mass/Vol] 97 mg/dL Normal 0-130 [facility] Comment on above: Result Comment: LDL Guidelines: <100 Desirable 100-129 Near to/above Desirable 130-159 Borderline >159 Undesirable Direct (measured) LDL and calculated LDL are not interchangeable tests. Performed By: #### U RNMAB #### [facility] [address] [place] [address] [phone] Slip Filler: Dexter Madera MD Cholesterol.total/ Cholesterol in HDL [Mass ratio] 4.3 {ratio} Normal <5 [facility] Comment on above: Performed By: #### U RNMAB #### [facility] [address] [place] [address] [id number] Slip Filler: Dexter Madera MD Triglyceride [Mass/Vol] 156 mg/dL High <150 [facility] Comment on above: Result Comment: Triglyceride Guidelines: <150 Desirable 150-199 Borderline 200-499 High >499 Very high Based on AHA Guidelines for fasting triglyceride, November 2011. Performed By: #### U RNMAB #### [facility] [address] [place] [address] Slip Filler: Dexter Madera MD CBC with Auto Differentialon 04-29-2022 Absolute Eos # 0.45 High [facility] [employer] Absolute Immature Granulocyte 0.05 [facility] [employer] Absolute Lymph # 1.93 [facility] [employer] Absolute Whiteside # 0.85 [facility] [employer] Basophils (Bld) [#/Vol] 0.13 10*3/uL [facility] Basophils/100 WBC (Bld) 1 % 0 - 2 % [facility] Eosinophils/100 WBC (Bld) 4 % 1 - 4 % [facility] Hematocrit (Bld) [Volume fraction] 42.9 % 40.7 - 50.3 % [facility] Hemoglobin (Bld) [Mass/Vol] 14.6 g/dL 13.0 - 17.0 g/dL [facility] Immature granulocytes/100 WBC (Bld) 1 % High 0 [facility] Interpretation and review of laboratory results Abnormal [facility] Lymphocytes/100 WBC (Bld) 19 % Low 24 - 43 % [facility] MCH (RBC) [Entitic mass] 29.9 pg 25.2 - 33.5 pg [facility] MCHC (RBC) [Mass/Vol] 34.0 g/dL 28.4 - 34.8 g/dL [facility] MCV (RBC) [Entitic vol] 87.9 fL 82.6 - 102.9 fL [facility] Monocytes/100 WBC (Bld) 8 % 3 - 12 % [facility] NRBC Automated 0.0 0.0 per 100 WBC [facility] Platelet distribution width (Bld) [Ratio] 13.7 % 11.8 - 14.4 % [facility] Platelet mean volume (Bld) [Entitic vol] 9.4 fL 8.1 - 13.5 fL [facility] Platelets (Bld) [#/Vol] 358 10*3/uL [facility] RBC (Bld) [#/Vol] 4.88 10*6/uL 4.21 - 5.7 7 m/uL [facility] Segmented neutrophils/100 WBC (Bld) 67 % High 36 - 65 % [facility] Segs Absolute 6.89 [facility] WBC (Bld) [#/Vol] 10.3 10*3/uL [facility] CBC with Diffon 04-29-2022 Abs. Basophil 0.13 k/uL Normal 0.00-0.20 [facility] Comment on above: Performed By: #### C P, CDP #### [facility] [address] [place] [address] [place] [address] Slip Filler: Barak Garcia MD Abs.Imm.Granulocyt e 0.05 k/uL Normal 0.00-0.30 [facility] Comment on above: Performed By: #### C P, CDP #### [facility] [address] [place] [address] [place] [address] Slip Filler: Barak Garcia MD Abs.Neutrophil (Seg) 6.89 k/uL Normal 1.50-8.10 [facility] Comment on above: Performed By: #### C P, CDP #### [facility] [address] [place] [address] [place] [address] Slip Filler: Barak Garcia MD Basophils/100 WBC (Bld) 1 % Normal 0-2 [facility] Comment on above: Performed By: #### C P, CDP #### [address] [place], [place] [address] Slip Filler: Barak Garcia MD Eosinophils (Bld) [#/Vol] 0.45 10*3/uL High 0.00-0.44 [facility] Comment on above: Performed By: #### C P, CDP #### [address] [place], [place] [address] Slip Filler: Barak Garcia MD Eosinophils/100 WBC (Bld) 4 % Normal 1-4 [facility] Comment on above: Performed By: #### C P, CDP #### [address] [place], [place] [address] Slip Filler: Barak Garcia MD Erythrocyte distribution width (RBC) [Ratio] 13.7 % Normal 11.8-14.4 [facility] Comment on above: Performed By: #### C P, CDP #### [address] [place], [facility] Slip Filler: Barak Garcia MD Hematocrit (Bld) [Volume fraction] 42.9 % Normal 40.7-50.3 [facility] Comment on above: Performed By: #### C P, CDP #### [facility] [address] [place], [facility] Slip Filler: Barak Garcia MD Hemoglobin (Bld) [Mass/Vol] 14.6 g/dL Normal 13.0-17.0 [facility] Comment on above: Performed By: #### C P, CDP #### [facility] [address] [place], [facility] Slip Filler: Barak Garcia MD Immature granulocytes/100 WBC (Bld) 1 % High 0 [facility] Comment on above: Performed By: #### C P, CDP #### [facility] [address] [place], [facility] Slip Filler: Barak Garcia MD Lymphocytes (Bld) [#/Vol] 1.93 10*3/uL Normal 1.10-3.70 [facility] Comment on above: Performed By: #### C P, CDP #### [address] [place], [facility] Slip Filler: Barak Garcia MD Lymphocytes/100 WBC (Bld) 19 % Low 24-43 [facility] Comment on above: Performed By: #### C P, CDP #### [facility] [address] [place] [address] Dr. [place], [place] [address] Slip Filler: Barak Garcia MD MCH (RBC) [Entitic mass] 29.9 pg Normal 25.2-33.5 [facility] Comment on above: Performed By: #### C P, CDP #### [facility] [address] [place], [facility] Slip Filler: Barak Garcia MD MCHC (RBC) [Mass/Vol] 34.0 g/dL Normal 28.4-34.8 [facility] Comment on above: Performed By: #### C P, CDP #### [facility] [address] [place], [place] [phone] Slip Filler: Barak Garcia MD MCV (RBC) [Entitic vol] 87.9 fL Normal 82.6-102.9 [facility] Comment on above: Performed By: #### C P, CDP #### [address] [place], [place] [phone] Slip Filler: Barak Garcia MD Monocytes (Bld) [#/Vol] 0.85 10*3/uL Normal 0.10-1.20 [facility] Comment on above: Performed By: #### C P, CDP #### [address] [place], [place] [phone] Slip Filler: Barak Garcia MD Monocytes/100 WBC (Bld) 8 % Normal 3-12 [facility] Comment on above: Performed By: #### C P, CDP #### [address] [place], [place] 9721083 Slip Filler: Barak Garcia MD Neutrophil (Seg) 67 % High 36-65 [facility] Comment on above: Performed By: #### C P, CDP #### [address] [place], [place] [phone] Slip Filler: Barak Garcia MD NRBC Automated 0.0 per 100 WBC Normal 0.0 [facility] Comment on above: Performed By: #### C P, CDP #### [address] [place], [place] [id number] Slip Filler: Barak Garcia MD Platelet mean volume (Bld) [Entitic vol] 9.4 fL Normal 8.1-13.5 [facility] Comment on above: Performed By: #### C P, CDP #### [address] [place] [address] Slip Filler: Barak Garcia MD Platelets (Bld) [#/Vol] 358 10*3/uL Normal 138-453 [facility] Comment on above: Performed By: #### C P, CDP #### [facility] [address] [place] [address] Slip Filler: Barak Garcia MD RBC (Bld) [#/Vol] 4.88 10*6/uL Normal 4.21-5.77 [facility] Comment on above: Performed By: #### C P, CDP #### [facility] [address] [place], [place] [phone] Slip Filler: Barak Garcia MD WBC (Bld) [#/Vol] 10.3 10*3/uL Normal 3.5-11.3 [facility] Comment on above: Performed By: #### C P, CDP #### [facility] [address] [place], [place] [phone] Slip Filler: Barak Garcia MD Comp Metabolic Profon 2022 Albumin [Mass/Vol] 4.0 g/dL Normal 3.5-5.2 [facility] Comment on above: Performed By: #### C P, CDP #### [facility] [address] [place], [place] [phone] Slip Filler: Barak Garcia MD Albumin/Glob Ratio 1.1 Normal 1.0-2.5 [facility] Comment on above: Performed By: #### C P, CDP #### [facility] [address] [place], [place] [phone] Slip Filler: Barak Garcia MD Alkaline Phos 75 U/L Normal 40-129 [facility] Comment on above: Performed By: #### C P, CDP #### [facility] [address] [place] [address] Slip Filler: Barak Garcia MD ALT [Catalytic activity/Vol] 33 U/L Normal 5-41 [facility] Comment on above: Performed By: #### C P, CDP #### [facility] [address] [place], [place] [phone] Slip Filler: Barak Garcia MD Anion gap [Moles/Vol] 8 mmol/L Low 9-17 [facility] Comment on above: Performed By: #### C P, CDP #### [facility] [address] [place], [place] [phone] Slip Filler: Barak Garcia MD AST [Catalytic activity/Vol] 29 U/L Normal <40 [facility] Comment on above: Performed By: #### C P, CDP #### [facility] [address] [place], [place] [phone] Slip Filler: Barak Garcia MD Bilirubin [Mass/Vol] 0.4 mg/dL Normal 0.3-1.2 [facility] Comment on above: Performed By: #### C P, CDP #### [facility] [address] [place], [place] [phone] Slip Filler: Barak Garcia MD BUN/CRE Ratio 18 Normal 9-20 [facility] Comment on above: Performed By: #### C P, CDP #### [facility] [address] [place], [place] [phone] Slip Filler: aBrak Garcia MD Calcium [Mass/Vol] 9.7 mg/dL Normal 8.6-10.4 [facility] Comment on above: Performed By: #### C P, CDP #### [facility] [address] [place], [place] [id number] Slip Filler: Barak Garcia MD Chloride [Moles/Vol] 100 mmol/L Normal 98-107 [facility] Comment on above: Performed By: #### C P, CDP #### [facility] [address] [place], [place] [id number] Slip Filler: Barak Garcia MD CO2 [Moles/Vol] 30 mmol/L Normal 20-31 [facility] Comment on above: Performed By: #### C P, CDP #### [facility] [address] [place] [address] Slip Filler: Barak Garcia MD Creatinine [Mass/Vol] 0.79 mg/dL Normal 0.70-1.20 [facility] Comment on above: Performed By: #### C P, CDP #### [facility] [address] [place] [address] Slip Filler: Barak Garcia MD GFR/1.73 sq M.predicted among non-blacks MDRD (S/P/Bld) [Vol rate/Area] mL/min/{1.73_m2} Normal >60 [facility] Comment on above: Result Comment: These results [...] Performed By: #### C P, CDP #### [address] [place] [address] Slip Filler: Barak Garcia MD Glucose [Mass/Vol] 191 mg/dL High 70-99 [facility] Comment on above: Performed By: #### C P, CDP #### [facility] [address] [place] [address] Slip Filler: Barak Garcia MD Potassium [Moles/Vol] 4.2 mmol/L Normal 3.7-5.3 [facility] Comment on above: Performed By: #### C P, CDP #### [address] [place] [address] Slip Filler: Barak Garcia MD Protein [Mass/Vol] 7.5 g/dL Normal 6.4-8.3 [facility] Comment on above: Performed By: #### C P, CDP #### [facility] [address] [place] [address] Slip Filler: Barak Garcia MD Sodium [Moles/Vol] 138 mmol/L Normal 135-144 [facility] Comment on above: Performed By: #### C P, CDP #### [facility] [address] [place] [address] Slip Filler: Barak Garcia MD Urea nitrogen [Mass/Vol] 14 mg/dL Normal 8-23 [facility] Comment on above: Performed By: #### C P, CDP #### [facility] [address] [place] [address] Slip Filler: Barak Garcia MD Comprehensive Metabolic Pane [facility] 04-29-2022 Albumin [Mass/Vol] 4 g/dL 3.5 - 5.2 g/dL [facility] Albumin/Globulin [Mass ratio] 1.1 {ratio} 1.0 - 2.5 [facility] ALP [Catalytic activity/Vol] 75 U/L 40 - 129 U/L [facility] ALT [Catalytic activity/Vol] 33 U/L 5 - 41 U/L [facility] Anion gap [Moles/Vol] 8 mmol/L Low 9 - 17 mmol/L [facility] AST [Catalytic activity/Vol] 29 U/L NINF - 40 U/L [facility] Bilirubin [Mass/Vol] 0.4 mg/dL 0.3 - 1.2 mg/dL [facility] Calcium [Mass/Vol] 9.7 mg/dL 8.6 - 10. 4 mg/dL [facility] Chloride [Moles/Vol] 100 mmol/L 98 - 107 mmol/L [facility] CO2 [Moles/Vol] 30 mmol/L 20 - 31 mmol/L [facility] Creatinine [Mass/Vol] 0.79 mg/dL 0.70 - 1.20 mg/dL [facility] GFR/1.73 sq M.predicted MDRD (S/P/Bld) [Vol rate/Area] - PINF [facility] Comment on above: These results are [...] 191 mg/dL High 70 - 99 mg/dL [facility] Interpretation and review of laboratory results Abnormal [facility] [employer] Potassium [Moles/Vol] 4.2 mmol/L 3.7 - 5.3 mmol/L [facility] Protein [Mass/Vol] 7.5 g/dL 6.4 - 8.3 g/dL [facility] [employer] Sodium [Moles/Vol] 138 mmol/L 135 - 144 mmol/L [facility] Urea nitrogen [Mass/Vol] 14 mg/dL 8 - 23 mg/dL [facility] [employer] Urea nitrogen/Creatinin e (Bld) [Mass ratio] 18 9 - 20 [facility]osphere[facility] Lipid Panelon 04-29-2022 Cholesterol [Mass/Vol] 167 mg/dL NINF - 200 mg/dL [facility] [employer] Comment on above: Cholesterol Guidelines: <200 Desirable 200-240 Borderline >240 Undesirable Cholesterol in HDL [Mass/Vol] 39 mg/dL Low 40 - PINF mg/dL [facility] Comment on above: HDL Guidelines: <40 Undesirable 40-59 Borderline >59 Desirable Cholesterol in LDL [Mass/Vol] 97 mg/dL 0 - 130 mg/dL [facility] Comment on above: LDL Guidelines: <100 Desirable 100-129 Near to/above Desirable 130-159 Borderline >159 Undesirable Direct (measured) LDL and calculated LDL are not interchangeable tests. Cholesterol.total/ Cholesterol in HDL [Mass ratio] 4.3 {ratio} NINF - 5 [facility] Interpretation and review of laboratory results Abnormal [facility] Triglyceride [Mass/Vol] 156 mg/dL High NINF - 150 mg/dL [facility] Comment on above: Triglyceride Guidelines: <150 Desirable 150-199 Borderline 200-499 High >499 Very high Based on AHA Guidelines for fasting triglyceride, November 2011. [facility] TSHon 04-29-2022 TSH Qn 3.05 m[IU]/L [facility] Thyroid Stim. Horm.on 2022 Thyroid Stim. Horm. 3.05 uIU/mL Normal 0.30-5.00 [facility] Comment on above: Performed By: #### T SH #### [facility] [address] [place] [address] Slip Filler: Barak Garcia MD Basic Metabolic Panelon 06-23 Anion gap [Moles/Vol] 10 mmol/L 9 - 17 mmol/L [facility] Calcium [Mass/Vol] 9.7 mg/dL 8.6 - 10. 4 mg/dL [facility] Chloride [Moles/Vol] 102 mmol/L 98 - 107 mmol/L [facility] CO2 [Moles/Vol] 27 mmol/L 20 - 31 mmol/L [facility] Creatinine [Mass/Vol] 0.62 mg/dL Low 0.70 - 1.20 mg/dL [facility] GFR >60 >60 mL/min [facility] GFR Non- >60 >60 mL/min [facility] Glucose [Mass/Vol] 192 mg/dL High 70 - 99 mg/dL [facility] Interpretation and review of laboratory results Abnormal [facility] Potassium [Moles/Vol] 4.0 mmol/L 3.7 - 5.3 mmol/L [facility] Sodium [Moles/Vol] 139 mmol/L 135 - 144 mmol/L [facility] Urea nitrogen (BldV) [Mass/Vol] 11 mg/dL 8 - 23 mg/dL [facility] Urea nitrogen/Creatinin e (Bld) [Mass ratio] 18 [facility] CBC with Auto Differentialon 07-21-2021 Absolute Eos # 0.42 [facility] Absolute Immature Granulocyte 0.04 [facility] Absolute Lymph # 2.29 [facility] Absolute Whiteside # 0.86 [facility] Basophils (Bld) [#/Vol] 0.11 10*3/uL [facility] Basophils/100 WBC (Bld) 1 % 0 - 2 % [facility] Eosinophils/100 WBC (Bld) 4 % 1 - 4 % [facility] Hematocrit (Bld) [Volume fraction] 43.6 % 40.7 - 50.3 % [facility] Hemoglobin.gastroi ntestinal spec 1 Ql (Stl) 14.3 g/dL 13.0 - 17.0 g/dL [facility] Immature granulocytes/100 WBC (Bld) 0 % 0 [facility] Interpretation and review of laboratory results Abnormal [facility] Lymphocytes/100 WBC (Bld) 21 % Low 24 - 43 % [facility] MCH (RBC) [Entitic mass] 29.2 pg 25.2 - 33.5 pg [facility] MCHC (RBC) [Mass/Vol] 32.8 g/dL 28.4 - 34.8 g/dL [facility] MCV (RBC) [Entitic vol] 89.0 fL 82.6 - 102.9 fL [facility] Monocytes/100 WBC (Bld) 8 % 3 - 12 % [facility] NRBC Automated 0.0 0.0 per 100 WBC [facility] Platelet distribution width (Bld) [Ratio] 13.7 % 11.8 - 14.4 % [facility] Platelet mean volume (Bld) [Entitic vol] 9.6 fL 8.1 - 13.5 fL [facility] Platelets (Bld) [#/Vol] 392 10*3/uL [facility] RBC (Bld) [#/Vol] 4.90 10*6/uL 4.21 - 5.7 7 m/uL [facility] Segmented neutrophils/100 WBC (Bld) 66 % High 36 - 65 % [facility] Segs Absolute 7.34 [facility] WBC (Bld) [#/Vol] 11.1 10*3/uL [facility] Laboratory - Chemistry and C hemistry - challengeon 07-21-2021 GFR/1.73 sq M.predicted MDRD (S/P/Bld) [Vol rate/Area] [facility] Comment on above: Average GFR for 60-6 9 years old: 85 mL/min/1.73sq m Chronic Kidney Disease: <60 mL/min/1.73sq m Kidney failure: <15 mL/min/1.73sq m eGFR calculated using average adult body mass. Additional eGFR calculator available at: http://www.iMedia.fm/multiple_crcl_2012.htm Stage 1: Some kidney damage normal GFR Stage 2: Mild kidney damage GFR 60-89 Stage 3: Moderate kidney damage GFR 30-59 Stage 4: Severe kidney damage GFR 15-29 Stage 5: Severe kidney damage GFR <15 ESRD - chronic treatment by dialysis or transplant CBC with Auto Differentialon 06-01-2021 Absolute Eos # 0.62 High [facility] th Absolute Immature Granulocyte 0.05 [facility] Absolute Lymph # 2.36 [facility] Absolute Whiteside # 0.78 [facility] Basophils (Bld) [#/Vol] 0.12 10*3/uL [facility] Basophils/100 WBC (Bld) 1 % 0 - 2 % [facility] Eosinophils/100 WBC (Bld) 6 % High 1 - 4 % [facility] Hematocrit (Bld) [Volume fraction] 44.6 % 40.7 - 50.3 % [facility] Hemoglobin.gastroi ntestinal spec 1 Ql (Stl) 14.4 g/dL 13.0 - 17.0 g/dL [facility] Immature granulocytes/100 WBC (Bld) 1 % High 0 [facility] Interpretation and review of laboratory results Abnormal [facility] Lymphocytes/100 WBC (Bld) 24 % 24 - 43 % [facility] MCH (RBC) [Entitic mass] 28.7 pg 25.2 - 33.5 pg [facility] MCHC (RBC) [Mass/Vol] 32.3 g/dL 28.4 - 34.8 g/dL [facility] MCV (RBC) [Entitic vol] 89.0 fL 82.6 - 102.9 fL [facility] Monocytes/100 WBC (Bld) 8 % 3 - 12 % [facility] NRBC Automated 0.0 0.0 per 100 WBC [facility] Platelet distribution width (Bld) [Ratio] 13.9 % 11.8 - 14.4 % [facility] Platelet mean volume (Bld) [Entitic vol] 9.3 fL 8.1 - 13.5 fL [facility] Platelets (Bld) [#/Vol] 378 10*3/uL [facility] RBC (Bld) [#/Vol] 5.01 10*6/uL 4.21 - 5.7 7 m/uL [facility] Segmented neutrophils/100 WBC (Bld) 60 % 36 - 65 % [facility] Segs Absolute 5.92 [facility] (Bld) [#/Vol] 9.9 10*3/uL [facility] Comprehensive Metabolic Pane jesus 06-01-2021 Albumin [Mass/Vol] 4.2 g/dL 3.5 - 5.2 g/dL [facility] Albumin/Globulin [Mass ratio] 1.4 {ratio} [facility] ALP (Bld) [Catalytic activity/Vol] 75 U/L 40 - 129 U/L [facility] ALT [Catalytic activity/Vol] 43 U/L High 5 - 41 U/L [facility] Anion gap [Moles/Vol] 13 mmol/L 9 - 17 mmol/L [facility] AST [Catalytic activity/Vol] 32 U/L <40 [facility] Bilirubin [Mass/Vol] 0.45 mg/dL 0.3 - 1.2 mg/dL [facility] Calcium [Mass/Vol] 9.8 mg/dL 8.6 - 10. 4 mg/dL [facility] Chloride [Moles/Vol] 101 mmol/L 98 - 107 mmol/L [facility] CO2 [Moles/Vol] 24 mmol/L 20 - 31 mmol/L [facility] Creatinine [Mass/Vol] 0.79 mg/dL 0.70 - 1.20 mg/dL [facility] Free PSA/Total PSA [Mass fraction] 7.3 g/dL 6.4 - 8.3 g/dL [facility] GFR >60 >60 mL/min [facility] GFR Non- >60 >60 mL/min [facility] Glucose [Mass/Vol] 244 mg/dL High 70 - 99 mg/dL [facility] Interpretation and review of laboratory results Abnormal [facility] Potassium [Moles/Vol] 3.8 mmol/L 3.7 - 5.3 mmol/L [facility] Sodium [Moles/Vol] 138 mmol/L 135 - 144 mmol/L [facility] Urea nitrogen (BldV) [Mass/Vol] 13 mg/dL 8 - 23 mg/dL [facility] Urea nitrogen/Creatinin e (Bld) [Mass ratio] 16 [facility] Laboratory - Chemistry and C hemistry - challengeon 06-01-2021 GFR/1.73 sq M.predicted MDRD (S/P/Bld) [Vol rate/Area] [facility] Comment on above: Average GFR for 60-6 9 years old: 85 mL/min/1.73sq m Chronic Kidney Disease: <60 mL/min/1.73sq m Kidney failure: <15 mL/min/1.73sq m eGFR calculated using average adult body mass. Additional eGFR calculator available at: http://www.iMedia.fm/multiple_crcl_2012.htm Stage 1: Some kidney damage normal GFR Stage 2: Mild kidney damage GFR 60-89 Stage 3: Moderate kidney damage GFR 30-59 Stage 4: Severe kidney damage GFR 15-29 Stage 5: Severe kidney damage GFR <15 ESRD - chronic treatment by dialysis or transplant Lipid Panelon 06-01-2021 Cholesterol [Mass/Vol] 148 mg/dL <200 [facility] Comment on above: Cholesterol Guidelines: <200 Desirable 200-240 Borderline >240 Undesirable Cholesterol in HDL [Mass/Vol] 35 mg/dL Low >40 [facility] Comment on above: HDL Guidelines: <40 Undesirable 40-59 Borderline >59 Desirable Cholesterol in LDL [Mass/Vol] 80 mg/dL 0 - 130 mg/dL [facility] Comment on above: LDL Guidelines: <100 Desirable 100-129 Near to/above Desirable 130-159 Borderline >159 Undesirable Direct (measured) LDL and calculated LDL are not interchangeable tests. Cholesterol.total/ Cholesterol in HDL [Mass ratio] 4.2 {ratio} <5 [facility] Interpretation and review of laboratory results Abnormal [facility] Triglyceride [Mass/Vol] 164 mg/dL High <150 [facility] Comment on above: Triglyceride Guidelines: <150 Desirable 150-199 Borderline 200-499 High >499 Very high Based on AHA Guidelines for fasting triglyceride, November 2011. [facility] PSA Screeningon 06-01-2021 [facility] CBC Auto Differentialon 12-22 Basophils (Bld) [#/Vol] 0.14 10*3/uL [place] Basophils/100 WBC (Bld) 1 % 0 - 2 % [place] Differential Type NOT REPORTED [place] Eosinophils (Bld) [#/Vol] 0.56 10*3/uL [place] Eosinophils/100 WBC (Bld) 5 % High 1 - 4 % [place] Erythrocyte distribution width (RBC) [Ratio] 13.9 % 11.8 - 14.4 % [place] Hematocrit (Bld) [Volume fraction] 43.8 % 40.7 - 50.3 % [place] Hemoglobin (Bld) [Mass/Vol] 13.9 g/dL 13 - 17 g/dL [place] Immature granulocytes (Bld) [#/Vol] 0.06 10*3/uL [place] Immature granulocytes (Bld) [#/Vol] 1 % High 0 [place] Interpretation and review of laboratory results Abnormal [place] Lymphocytes (Bld) [#/Vol] 2.18 10*3/uL [place] Lymphocytes/100 WBC (Bld) 19 % Low 24 - 43 % [place] MCH (RBC) [Entitic mass] 28.7 pg 25.2 - 33.5 pg [place] MCHC (RBC) [Mass/Vol] 31.7 g/dL 28.4 - 34.8 g/dL [place] MCV (RBC) [Entitic vol] 90.5 fL 82.6 - 102.9 fL [place] Monocytes (Bld) [#/Vol] 0.87 10*3/uL [place] Monocytes/100 WBC (Bld) 8 % 3 - 12 % [place] Platelet mean volume (Bld) [Entitic vol] 8.9 fL 8.1 - 13.5 fL [place] Platelets (Bld) [#/Vol] NOT REPORTED [place] Platelets (Bld) [#/Vol] 376 10*3/uL [place] RBC (Bld) [#/Vol] 4.84 10*6/uL 4.21 - 5.7 7 m/uL [place] RBC morphology finding Nom (Bld) NOT REPORTED [place] Segmented neutrophils/100 WBC (Bld) 66 % High 36 - 65 % [place] Segs Absolute 7.52 [place] WBC (Bld) [#/Vol] 0.0 10*3/uL 0.0 per 10 0 WBC [place] WBC (Bld) [#/Vol] 11.3 10*3/uL [place] WBC Morphology NOT REPORTED [place] Comprehensive Metabolic Pane jesus 01-08-2020 Albumin [Mass/Vol] 4.4 g/dL 3.5 - 5.2 g/dL [place] Albumin/Globulin [Mass ratio] 1.4 {ratio} [place] ALP [Catalytic activity/Vol] 63 U/L 40 - 129 U/L [place] ALT [Catalytic activity/Vol] 35 U/L 5 - 41 U/L [place] Anion gap [Moles/Vol] 14 mmol/L 9 - 17 mmol/L [place] AST [Catalytic activity/Vol] 31 U/L <40 [place] Bilirubin Ql (U) 0.30 mg/dL 0.3 - 1.2 mg/dL [place] Bun/Cre Ratio 20 [place] Calcium [Mass/Vol] 10.0 mg/dL 8.6 - 10. 4 mg/dL [place] Chloride [Moles/Vol] 99 mmol/L 98 - 107 mmol/L [place] CO2 [Moles/Vol] 24 mmol/L 20 - 31 mmol/L [place] Creatinine [Mass/Vol] 0.71 mg/dL 0.7 - 1.2 mg/dL [place] GFR >60 >60 mL/min [place] GFR Non- >60 >60 mL/min [place] Glucose [Mass/Vol] 225 mg/dL High 70 - 99 mg/dL [place] Interpretation and review of laboratory results Abnormal [place] Potassium [Moles/Vol] 4.0 mmol/L 3.7 - 5.3 mmol/L [place] Protein [Mass/Vol] 7.5 g/dL 6.4 - 8.3 g/dL [place] Sodium [Moles/Vol] 137 mmol/L 135 - 144 mmol/L [place] Urea nitrogen [Mass/Vol] 14 mg/dL 8 - 23 mg/dL [place] Lipid Panelon 01-08-2020 Cholesterol [Mass/Vol] 144 mg/dL <200 [place] Comment on above: Cholesterol Guidelines: <200 Desirable 200-240 Borderline >240 Undesirable Cholesterol in HDL [Mass/Vol] 34 mg/dL Low >40 [place] Comment on above: HDL Guidelines: <40 Undesirable 40-59 Borderline >59 Desirable Cholesterol in LDL [Mass/Vol] 84 mg/dL 0 - 130 mg/dL [place] Comment on above: LDL Guidelines: <100 Desirable 100-129 Near to/above Desirable 130-159 Borderline >159 Undesirable Direct (measured) LDL and calculated LDL are not interchangeable tests. Cholesterol in VLDL [Mass/Vol] NOT REPORTED 1 - 30 mg/dL [place] Cholesterol.total/ Cholesterol in HDL [Mass ratio] 4.2 {ratio} <5 [place] Interpretation and review of laboratory results Abnormal [place] Triglyceride [Mass/Vol] 130 mg/dL <150 [place] Comment on above: Triglyceride Guidelines: <150 Desirable 150-199 Borderline 200-499 High >499 Very high Based on AHA Guidelines for fasting triglyceride, November 2011. Metabolic Panelon 01-08-2020 GFR/1.73 sq M predicted among non-blacks MDRD (S/P/Bld) [Vol rate/Area] [place] Comment on above: Stage 1: Some [...] body mass. Additional eGFR calculator available at: http://www.iMedia.fm/multiple_crcl_2012.htm Microalbumin, Uron 0 Albumin/Creatinine DL <= 20 mg/L (24H U) [Mass ratio] 53 mg/L High <21 [place] Albumin/Creatinine DL <= 20 mg/L (U) [Ratio] 28 High <17 mcg/mg creat [place] Creatinine [Mass/Vol] 189.9 mg/dL 39 - 259 mg/dL [place] Interpretation and review of laboratory results Abnormal [place] Cult,Aerobe/Anaerobeon 01-14 Cult,Aerobe/Anaero be Specimen Description [...] Trimethoprim/Sulfa <=20 SUSCEPTIBLE Piperacillin/Tazobactam <=4 SUSCEPTIBLE Normal [facility] Comment on above: Performed By: #### A ANC #### [facility] [address] [place] [address] Slip Filler: Dexter Madera MD [facility] [address] [place] [address] Slip Filler: Morgan Andino MD CBC auto differentialon 12-23 Basophils (Bld) [#/Vol] 0.10 10*3/uL [place] Basophils/100 WBC (Bld) 1 % 0 - 2 % [place] Differential Type YES [place] Eosinophils (Bld) [#/Vol] 0.10 10*3/uL [place] Eosinophils/100 WBC (Bld) 1 % 0 - 5 % [place] Erythrocyte distribution width (RBC) [Ratio] 13.9 % 12.1 - 15.2 % [place] Hematocrit (Bld) [Volume fraction] 40.3 % Low 41 - 53 % [place] Hemoglobin (Bld) [Mass/Vol] 13.5 g/dL 13.5 - 17.5 g/dL [place] Interpretation and review of laboratory results Abnormal [place] Lymphocytes (Bld) [#/Vol] 1.40 10*3/uL [place] Lymphocytes/100 WBC (Bld) 11 % Low 13 - 44 % [place] MCH (RBC) [Entitic mass] 28.9 pg 26 - 34 pg [place] MCHC (RBC) [Mass/Vol] 33.5 g/dL 31 - 37 g/dL [place] MCV (RBC) [Entitic vol] 86.1 fL 80 - 100 fL [place] Monocytes (Bld) [#/Vol] 1.10 10*3/uL High [place] Monocytes/100 WBC (Bld) 9 % 5 - 9 % [place] Platelet mean volume (Bld) [Entitic vol] NOT REPORTED 6 - 12 fL [place] Platelets (Bld) [#/Vol] 317 10*3/uL [place] Platelets (Bld) [#/Vol] NOT REPORTED [place] RBC (Bld) [#/Vol] 4.68 10*6/uL 4.5 - 5.9 m/uL [place] RBC morphology finding Nom (Bld) NOT REPORTED [place] Segmented neutrophils/100 WBC (Bld) 78 % High 39 - 75 % [place] Segs Absolute 9.70 High [place] WBC (Bld) [#/Vol] NOT REPORTED per 100 WBC [place] WBC (Bld) [#/Vol] 12.3 10*3/uL [place] WBC Morphology NOT REPORTED [place] CBC with Diffon 01-12-2019 Abs. Basophil 0.10 k/uL Normal 0.0-0.2 [facility] Comment on above: Performed By: #### C DP #### [facility] [address] [place] [address] Slip Filler: Morgan Andino MD Abs.Neutrophil (Seg) 9.70 k/uL High 2.1-6.5 [facility] Comment on above: Performed By: #### C DP #### [facility] [address] [place] [address] Slip Filler: Morgan Andino MD Auto Diff Performed YES Normal [facility] Comment on above: Performed By: #### C DP #### [facility] [address] [place] [address] Slip Filler: Morgan Andino MD Basophils/100 WBC (Bld) 1 % Normal 0-2 [facility] Comment on above: Performed By: #### C DP #### [facility] [address] [place] [address] Slip Filler: Morgan Andino MD Eosinophils (Bld) [#/Vol] 0.10 10*3/uL Normal 0.0-0.4 [facility] Comment on above: Performed By: #### C DP #### [facility] [address] [place] [address] Slip Filler: Morgan Andino MD Eosinophils/100 WBC (Bld) 1 % Normal 0-5 [facility] Comment on above: Performed By: #### C DP #### [facility] [address] [place] [address] Slip Filler: Morgan Andino MD Erythrocyte distribution width (RBC) [Ratio] 13.9 % Normal 12.1-15.2 [facility] Comment on above: Performed By: #### C DP #### [facility] [address] [place] [address] Slip Filler: Morgan Andino MD Hematocrit (Bld) [Volume fraction] 40.3 % Low 41-53 [facility] Comment on above: Performed By: #### C DP #### [facility] [address] [place] [address] Slip Filler: Morgan Andino MD Hemoglobin (Bld) [Mass/Vol] 13.5 g/dL Normal 13.5-17.5 [facility] Comment on above: Performed By: #### C DP #### [facility] [address] [place] [address] Slip Filler: Morgan Andino MD Lymphocytes (Bld) [#/Vol] 1.40 10*3/uL Normal 1.0-4.8 [facility] Comment on above: Performed By: #### C DP #### [facility] [address] [place] [address] Slip Filler: Morgan Andino MD Lymphocytes/100 WBC (Bld) 11 % Low 13-44 [facility] Comment on above: Performed By: #### C DP #### [facility] [address] [place] [address] [id number] Slip Filler: Morgan Andino MD MCH (RBC) [Entitic mass] 28.9 pg Normal 26-34 [facility] Comment on above: Performed By: #### C DP #### [facility] [address] [place] [address] Slip Filler: Morgan Andino MD MCHC (RBC) [Mass/Vol] 33.5 g/dL Normal 31-37 [facility] Comment on above: Performed By: #### C DP #### [facility] [address] [place] [address] Slip Filler: Morgan Andino MD MCV (RBC) [Entitic vol] 86.1 fL Normal 80-100 [facility] Comment on above: Performed By: #### C DP #### [facility] [address] [place] [address] Slip Filler: Morgan Andino MD Monocytes (Bld) [#/Vol] 1.10 10*3/uL High 0.0-1.0 [facility] Comment on above: Performed By: #### C DP #### [facility] [address] [place] [address] Slip Filler: Morgan Andino MD Monocytes/100 WBC (Bld) 9 % Normal 5-9 [facility] Comment on above: Performed By: #### C DP #### [facility] [address] [place] [address] Slip Filler: Morgan Andino MD Neutrophil (Seg) 78 % High 39-[address] [facility] Comment on above: Performed By: #### C DP #### [facility] [address] [place] [address] Slip Filler: Morgan Andino MD Platelets (Bld) [#/Vol] 317 10*3/uL Normal 140-450 [facility] Comment on above: Performed By: #### C DP #### [facility] [address] [place] [address] Slip Filler: Morgan Andino MD RBC (Bld) [#/Vol] 4.68 10*6/uL Normal 4.5-5.9 [facility] Comment on above: Performed By: #### C DP #### [facility] [address] [place] [address] Slip Filler: Morgan Andino MD WBC (Bld) [#/Vol] 12.3 10*3/uL High 3.5-11.0 [facility] Comment on above: Performed By: #### C DP #### [facility] [address] [place] [address] Slip Filler: Morgan Andino MD Abs.Imm.Granulocyt e NOT REPORTED Normal 0.00-0.30 [facility] Comment on above: Performed By: #### C DP #### [facility] [address] [place] [address] Slip Filler: Morgan Andino MD Immature granulocytes (Bld) [#/Vol] NOT REPORTED Normal 0 [facility] Comment on above: Performed By: #### C DP #### [facility] [address] [place] [address] Slip Filler: Morgan Andino MD NRBC Automated NOT REPORTED Normal [facility] Comment on above: Performed By: #### C DP #### [facility] [address] [place] [address] Slip Filler: Morgan Andino MD Platelet mean volume (Bld) [Entitic vol] NOT REPORTED Normal 6.0-12.0 [facility] Comment on above: Performed By: #### C DP #### [facility] [address] [place] [address] Slip Filler: Morgan Andino MD Platelets (Bld) [#/Vol] NOT REPORTED Normal [facility] Comment on above: Performed By: #### C DP #### [facility] [address] [place] [address] Slip Filler: Morgan Andino MD RBC morphology finding Nom (Bld) NOT REPORTED Normal [facility] Comment on above: Performed By: #### C DP #### [facility] [address] [place] [address] Slip Filler: Morgan Andino MD WBC Morphology NOT REPORTED Normal [facility] Comment on above: Performed By: #### C DP #### [facility] [address] [place] [address] Slip Filler: Morgan Andino MD Glucose, Whole Bloodon 01-12 Glucose [Mass/Vol] 242 mg/dL High 65 - 99 mg/dL [place], [place] Interpretation and review of laboratory results Abnormal [place] Glucose [Mass/Vol] 261 mg/dL High 65 - 99 mg/dL [place] Interpretation and review of laboratory results Abnormal [place] OPERATIVE REPORTon 9 OPERATIVE REPORT [facility] [address] [place] [address] OPERATIVE REPORT PATIENT NAME: KWABENA AKERS : 1950 MED REC NO: [id number] ROOM: ACCOUNT NO: [id number] ADMIT DATE: 01/12/2019 PROVIDER: Jessica Cooper DATE [...] gluteal/perianal abscess fluid for culture. DRAINS: A [place] with half-inch Nu Gauze. COMPLICATIONS: None. DISPOSITION: [...] for the consultation. JESSICA COOPER [id number] Doc#: [id number] CC: Phil Molina Eric [facility] Otheron 01-12-2019 Immature granulocytes (Bld) [#/Vol] NOT REPORTED 0 % [place], [place] Hemoglobin A1Con 09-25-2017 Glucose mass conc 197 mg/dL [facility] Comment on above: Result Comment: The ADA and AACC recommend providing the estimated average glucose result to permit better patient understanding of their HBA1c result. Performed By: #### C DP, BMP, LIPR, GLYHGB ####[facility] [address] [place], [place] [id number] Hemoglobin A1c/Hemoglobin.tot al mass fraction (Bld) 8.5 % High 4.0-6.0 [facility] Comment on above: Performed By: #### C DP, BMP, LIPR, GLYHGB ####[facility] [address] [place], [place] [id number] Basic Metabolic Profon 09-22 (cont.) [facility] Comment on above: Result Comment: Aver age GFR for 60-69 years old: 85 mL/min/1.73sq mChronic Kidney Disease: <60 mL/min/1.73sq mKidney failure: <15 mL/min/1.73sq meGFR calculated using average adult body mass. Additional eGFR calculator available at:http://www.[employer].com/multiple_crcl_2012.htm Performed By: #### C DP, BMP, LIPR, GLYHGB ####[address] [place] [address] Anion gap 3 molar conc 14 mmol/L Normal 9-17 [facility] Comment on above: Performed By: #### C DP, BMP, LIPR, GLYHGB ####[address] [place] [address] Calcium mass conc 9.2 mg/dL Normal 8.6-10.4 [facility] Comment on above: Performed By: #### C DP, BMP, LIPR, GLYHGB ####[address] [address] Chloride molar conc 99 mmol/L Normal 98-107 [facility] Comment on above: Performed By: #### C DP, BMP, LIPR, GLYHGB ####[address] [address] CO2 molar conc 25 mmol/L Normal 20-31 [facility] Comment on above: Performed By: #### C DP, BMP, LIPR, GLYHGB ####[address] [address] Creatinine mass conc 0.58 mg/dL Low 0.70-1.20 [facility] Comment on above: Performed By: #### C DP, BMP, LIPR, GLYHGB ####[address] [place] [address] GFR, Amer >60 Normal >60 [facility] Comment on above: Performed By: #### C DP, BMP, LIPR, GLYHGB ####[address] [address] GFR,non Amer >60 Normal >60 [facility] Comment on above: Performed By: #### C DP, BMP, LIPR, GLYHGB ####[facility] [address] [place] [address] Glucose mass conc 144 mg/dL High 70-99 [facility] Comment on above: Performed By: #### C DP, BMP, LIPR, GLYHGB ####[facility] [address] [place] [address] Potassium molar conc 3.8 mmol/L Normal 3.7-5.3 [facility] Comment on above: Performed By: #### C DP, BMP, LIPR, GLYHGB ####[address] [place] [address] Sodium molar conc 138 mmol/L Normal 135-144 [facility] Comment on above: Performed By: #### C DP, BMP, LIPR, GLYHGB ####[facility] [address] [place] [address] Urea nitrogen mass conc 12 mg/dL Normal 8-23 [facility] Comment on above: Performed By: #### C DP, BMP, LIPR, GLYHGB ####[address] [place] [address] BUN/CRE Ratio NOT REPORTED Normal 9-20 [facility] Comment on above: Performed By: #### C DP, BMP, LIPR, GLYHGB ####[facility] [address] [place] [address] Staging: NOT REPORTED Normal [facility] Comment on above: Performed By: #### C DP, BMP, LIPR, GLYHGB ####[address] [place] [address] CBC with Diffon 09-22-2017 Abs. Basophil 0.14 k/uL Normal 0.00-0.20 [facility] Comment on above: Performed By: #### C DP, BMP, LIPR, GLYHGB ####[address] [address] Abs.Imm.Granulocyt e 0.06 k/uL Normal 0.00-0.30 [facility] Comment on above: Performed By: #### C DP, BMP, LIPR, GLYHGB ####[place] [address] Abs.Neutrophil (Seg) 6.21 k/uL Normal 1.50-8.10 [facility] Comment on above: Performed By: #### C DP, BMP, LIPR, GLYHGB ####[address] [address] Basophils/100 WBC Auto (Bld) 1 % Normal 0-2 [facility] Comment on above: Performed By: #### C DP, BMP, LIPR, GLYHGB ####[address] [address] Eosinophils Auto #/vol (Bld) 0.70 10*3/uL High 0.00-0.44 [facility] Comment on above: Performed By: #### C DP, BMP, LIPR, GLYHGB ####[address] [address] Eosinophils/100 WBC Auto (Bld) 7 % High 1-4 [facility] Comment on above: Performed By: #### C DP, BMP, LIPR, GLYHGB ####[address] [address] Erythrocyte distribution width Auto Ratio (RBC) 13.9 % Normal 11.8-14.4 [facility] Comment on above: Performed By: #### C DP, BMP, LIPR, GLYHGB ####[address] [address] Hematocrit Auto Volume Fraction (Bld) 44.5 % Normal 40.7-50.3 [facility] Comment on above: Performed By: #### C DP, BMP, LIPR, GLYHGB ####[address] [address] Hemoglobin mass conc (Bld) 14.5 g/dL Normal 13.0-17.0 [facility] Comment on above: Performed By: #### C DP, BMP, LIPR, GLYHGB ####[address] [address] Immature granulocytes #/vol (Bld) 1 % High 0 [facility] Comment on above: Performed By: #### C DP, BMP, LIPR, GLYHGB ####[address] [address] Lymphocytes Auto #/vol (Bld) 2.80 10*3/uL Normal 1.10-3.70 [facility] Comment on above: Performed By: #### C DP, BMP, LIPR, GLYHGB ####[address] [address] Lymphocytes/100 WBC Auto (Bld) 26 % Normal 24-43 [facility] Comment on above: Performed By: #### C DP, BMP, LIPR, GLYHGB ####[address] [address] MCH Auto Entitic mass (RBC) 27.9 pg Normal 25.2-33.5 [facility] Comment on above: Performed By: #### C DP, BMP, LIPR, GLYHGB ####[address] [address] MCHC Auto mass conc (RBC) 32.6 g/dL Normal 28.4-34.8 [facility] Comment on above: Performed By: #### C DP, BMP, LIPR, GLYHGB ####[address] [address] MCV Auto Entitic volume (RBC) 85.7 fL Normal 82.6-102.9 [facility] Comment on above: Performed By: #### C DP, BMP, LIPR, GLYHGB ####[address] [address] Monocytes Auto #/vol (Bld) 0.94 10*3/uL Normal 0.10-1.20 [facility] Comment on above: Performed By: #### C DP, BMP, LIPR, GLYHGB ####[address] [address] Monocytes/100 WBC Auto (Bld) 9 % Normal 3-12 [facility] Comment on above: Performed By: #### C DP, BMP, LIPR, GLYHGB ####[address] [address] Neutrophil (Seg) 56 % Normal 36-65 [facility] Comment on above: Performed By: #### C DP, BMP, LIPR, GLYHGB ####[address] [address] NRBC Automated 0.0 per 100 WBC Normal 0.0 [facility] Comment on above: Performed By: #### C DP, BMP, LIPR, GLYHGB ####[address] [address] Platelet mean volume Auto Entitic volume (Bld) 8.8 fL Normal 8.1-13.5 [facility] Comment on above: Performed By: #### C DP, BMP, LIPR, GLYHGB ####[address] [address] Platelets Auto #/vol (Bld) 316 10*3/uL Normal 138-453 [facility] Comment on above: Performed By: #### C DP, BMP, LIPR, GLYHGB ####[address] [address] RBC Auto #/vol (Bld) 5.19 10*6/uL Normal 4.21-5.77 [facility] Comment on above: Performed By: #### C DP, BMP, LIPR, GLYHGB ####[address] [address] WBC Auto #/vol (Bld) 10.9 10*3/uL Normal 3.5-11.3 [facility] Comment on above: Performed By: #### C DP, BMP, LIPR, GLYHGB ####[address] [address] Auto Diff Performed NOT REPORTED Normal [facility] Comment on above: Performed By: #### C DP, BMP, LIPR, GLYHGB ####[address] [address] Platelets Auto #/vol (Bld) NOT REPORTED Normal [facility] Comment on above: Performed By: #### C DP, BMP, LIPR, GLYHGB ####[address] [address] RBC morphology finding Nom (Bld) NOT REPORTED Normal [facility] Comment on above: Performed By: #### C DP, BMP, LIPR, GLYHGB ####[address] [address] WBC Morphology NOT REPORTED Normal [facility] Comment on above: Performed By: #### C DP, BMP, LIPR, GLYHGB ####[address] [address] CTA HEAD W CONTRASTon 2017 CTA HEAD [...] by:MARY Duffyigned by:Luiz Mariano MD8//18Final result Normal [facility] CTA NECK W CONTRASTon 2017 CTA [...] by:MARY Duffyigned by:Luiz Mariano MD//18Final result Normal [facility] Consulton 09-22-2017 HIM IP Note OR Line Director Normal [facility] HIM IP Note OR Line Director Normal [facility] Discharge Summaryon 09-23-19 18 HIM IP Note OR Line Director Normal [facility] ED Noteon 09-22-2017 HIM IP Note OR Line Director Normal [facility] HIM IP Note OR Line Director Normal [facility] ED Provider Noteon 8 HIM IP Note OR Line Director Normal [facility] History and Physicalon 09-22 HIM IP Note OR Line Director Normal [facility] Lipid Profileon 09-22-2017 Cholesterol in HDL mass conc 28 mg/dL Low >40 [facility] Comment on above: Result Comment: HDL Guidelines: <40 Undesirable 40-59 Borderline >59 Desirable Performed By: #### C DP, BMP, LIPR, GLYHGB ####[facility] [address] [place] [address] Cholesterol in LDL mass conc 79 mg/dL Normal 0-130 [facility] Comment on above: Result Comment: LDL Guidelines: <100 Desirable 100-129 Near to/above Desirable 130-159 Borderline >159 UndesirableDirect (measured) LDL and calculated LDL are not interchangeable tests. Performed By: #### C DP, BMP, LIPR, GLYHGB ####[facility] [address] [place] [address] Cholesterol mass conc 135 mg/dL Normal <200 [facility] Comment on above: Result Comment: Chol esterol Guidelines: <200 Desirable 200-240 Borderline >240 Undesirable Performed By: #### C DP, BMP, LIPR, GLYHGB ####[facility] [address] [place] [address] Cholesterol.total/ Cholesterol in HDL mass ratio 4.8 {ratio} Normal <5 [facility] Comment on above: Performed By: #### C DP, BMP, LIPR, GLYHGB ####[facility] [address] [place] [address] Triglyceride mass conc 140 mg/dL Normal <150 [facility] Comment on above: Result Comment: Trig lyceride Guidelines: <150 Desirable 150- 199 Borderline 200-499 High >499 Very high Based on AHA Guidelines for fasting triglyceride, November 2011. Performed By: #### C DP, BMP, LIPR, GLYHGB ####[facility] [address] [place] [address] Cholesterol in VLDL mass conc NOT REPORTED Normal -30 [facility] Comment on above: Performed By: #### C DP, BMP, LIPR, GLYHGB ####[facility] [address] [place] [address] MRI BRAIN WO CONTRASTon MRI BRAIN WO [...] - In Basket (authorizing provider)Final result Normal [facility] Progress Noteon 09-22-2017 HIM IP Note OR Line Director Normal [facility] HIM IP Note OR Line Director Normal [facility] HIP RIGHT 1 OR 2 VWS WITH PE LVISon 02-03-2017 HIP RIGHT 1 OR 2 VWS WITH PELVIS [facility] [address] [place] [address] P atient Name: KWABENA AKERS : 1950Sex: MAge: Race: WhiteMRN: [id number]. Location: 84Patient Status: OVisit #: [id number] Date: 02/03/2017 1:25:00 PMCompleted Date: 02/03/2017 01:36 PMRequesting Provider: ONEIL WILLIAMSON Attending Provider: ONEIL WILLIAMSON Report Copy To: Signs & Symptoms: Z47.1 Aftercare following joint replacement surgery [id number]: AthenaComments: , , , Ordering Provider - ONEIL WILLIAMSON MD , Rendering Provider - ONEIL WILLIAMSON MD , Exam: HIP RIGHT 1 OR 2 VWS WITH PELVISAccession #: [id number] ======HIP RIGHT 1 OR 2 VWS WITH [...] arthroplasty Electronically signed by:Keri Durand. Transcribed by: [id number], User Resident: Electronically Signed by: KERI DURAND @ 02/03/2017 01:52 PM Normal [facility] Comment on above: Order Comment: , , = ========= , Ordering Provider - ONEIL WILLIAMSON MD , Rendering Provider - ONEIL WILLIAMSON MD , C REACTIVE PROTEINon 01-04-2 017 C reactive protein (CRP) 10.5 mg/L High 0.0-7.0 [facility] Comment on above: Performed By: #### 4 6447 ####[facility] CBC COMPLETE BLOOD COUNTon 1 03-06-2016 Erythrocyte distribution width Auto Ratio (RBC) 14.8 % Normal 11.5-16.9 [facility] Comment on above: Performed By: #### 4 6447 ####[facility] Erythrocytes (RBC) 4.65 mill/mm3 Normal 4.30-5.90 [facility] Comment on above: Performed By: #### 4 6447 ####[facility] Hematocrit (HCT) 40.2 % Normal 39.0-55.0 The [facility] Comment on above: Performed By: #### 4 6447 ####[facility] Hemoglobin mass conc (Bld) 12.9 g/dL Low 13.9-16.3 [facility] Comment on above: Performed By: #### 4 6447 ####[facility] MCH 27.7 pg Normal 24.0-32.0 [facility] Comment on above: Performed By: #### 4 6447 ####[facility] MCHC mass conc (RBC) 32.0 g/dL Normal 32.0-36.0 [facility] Comment on above: Performed By: #### 4 6447 ####[facility] MCV 86.6 fL Normal 80.0-100.0 [facility] Comment on above: Performed By: #### 4 6447 ####[facility] PLAT CNT 629 Thou/mm3 High 100-400 [facility] Comment on above: Performed By: #### 4 6469 ####[facility] WBC (Leukocytes) 10.4 Thou/mm3 High 4.0-10.0 [facility] Comment on above: Performed By: #### 4 6405 ####[facility] SEDIMENTATION RATEon 11-14-2 017 SED RATE 50 mm/hr High 0-10 [facility] Comment on above: Performed By: #### 4 6466 ####[facility] CBC W/DIFFon 12-28-2016 Basophils Auto #/vol (Bld) 0.8 % Normal 0.0-2.0 [facility] Comment on above: Performed By: #### 4 6447 ####[facility] [place] [address], [facility] Eosinophils/100 leukocytes 4.0 % Normal 0.0-5.0 [facility] Comment on above: Performed By: #### 4 6447 ####[facility] Erythrocyte distribution width Auto Ratio (RBC) 14.5 % Normal 11.5-16.9 [facility] Comment on above: Performed By: #### 4 6447 ####[facility] Erythrocytes (RBC) 4.34 mill/mm3 Normal 4.30-5.90 [facility] Comment on above: Performed By: #### 4 6447 ####[facility] Hematocrit (HCT) 37.5 % Low 39.0-55.0 [facility] Comment on above: Performed By: #### 4 6447 ####[facility] Hemoglobin mass conc (Bld) 12.3 g/dL Low 13.9-16.3 [facility] Comment on above: Performed By: #### 4 6457 ####[facility] [place] [address], [facility] Lymphocytes/100 leukocytes 17.8 % Low 20.0-40.0 [facility] Comment on above: Performed By: #### 4 6483 ####[facility] MCH 28.3 pg Normal 24.0-32.0 [facility] Comment on above: Performed By: #### 4 6447 ####[facility] MCHC mass conc (RBC) 32.7 g/dL Normal 32.0-36.0 [facility] Comment on above: Performed By: #### 4 6456 ####[facility] MCV 86.5 fL Normal 80.0-100.0 [facility] Comment on above: Performed By: #### 4 6465 ####[facility] METHOD Normal RBC Morphology Normal [facility] Comment on above: Performed By: #### 4 6767 ####[facility] MONOS 8.0 % Normal 2-8 [facility] Comment on above: Performed By: #### 4 6473 ####[facility] Neutrophils/100 leukocytes 69.4 % Normal 50-70 [facility] Comment on above: Performed By: #### 4 7083 ####[facility] [facility].[address] PLAT CNT 689 Thou/mm3 High 100-400 [facility] Comment on above: Performed By: #### 4 8024 ####[facility] WBC (Leukocytes) 12.6 Thou/mm3 High 4.0-10.0 [facility] Comment on above: Performed By: #### 4 0668 ####[facility] HIP RIGHT 1 OR 2 VWS WITH PE LVISon 12-28-2016 HIP RIGHT 1 OR 2 VWS WITH PELVIS [facility] [address] [place] [address] P atient Name: KWABENA AKERS : 1950Sex: MAge: Race: WhiteMRN: [id number]. Location: 84Patient Status: Date: 12/28/2016 11:15:00 AMCompleted Date: 12/28/2016 11:17 AMRequesting Provider: ONEIL WILLIAMSON Attending Provider: Report Copy To: Signs & Symptoms: Z47.1 Aftercare following joint replacement surgery [id number]: AthenaComments: , , , Ordering Provider - ONEIL WILLIAMSON MD , Exam: HIP RIGHT 1 OR 2 VWS WITH PELVISAccession #: [id number] ======HIP RIGHT 1 OR 2 VWS WITH [...] above Electronically signed by:Keri Durand. Transcribed by: [id number], User Resident: Electronically Signed by: KERI DURAND @ 12/28/2016 12:11 PM Normal [facility] Comment on above: Order Comment: , , = ========= , Ordering Provider - ONEIL WILLIAMSON MD , Discharge Summaryon 12-26-19 17 Discharge Summary MR#: [id number] [facility] Admitted: 12/16/2016 Discharged: [...] 12/24/2016/02:55 P/Amparo Zimmerman Trans: 12/25/2016 10:33 A/Ana Maria_JN:[id number] c: Phil Molina M.D. [address] [place] [address] , [address] [address] [place] [facility] Operative Reporton 7 Operative Report MR#: [id number] [facility] Kwabena Akers Room #: 6AB [id number] Discharge 12/17/2016 Date: Birthdate: 1950 OPERATIVE REPORTDATE OF SURGERY: 12/16/2016SURGEON: Oneil Williamson M.D.SURGEON: Oneil Williamson MD.AUTO BODY REPAIR TECHNICIAN: Dr. LoomisANESTHESIA: General anesthesia with fascia iliaca [...] The minimus was closed itselfwith #2 interrupted dngubb-ju-vzpsz suture. The medius to itself with arunning #5 fiber suture. The vastus lateralis with a running #2 Vicrylsuture. The IT band with #2 interrupted hwriqe-mn-pxfty suture. Thesubcutaneous tissue over drain with a running 0-Vicryl suture. The dermiswith 2-0 Vicryl and Biosyn for the skin. Dermabond was applied. Steriledressing applied. At the conclusion of the case, all sponge, needle countscorrect. I was present for the critical portions of this case.Electronically Signed by:Oneil Williamson M.D. 01/05/2017 08:31 P Oneil Williamson M.D.Date Dict: 12/20/2016/09:46 A/Oneil Williamson M.D.Date Trans: 12/20/2016 01:09 P/mmoDN_JN:[id number] c: Phil Molina M.D. [address] [facility] , [place] [address] [facility] [address] Normal [facility] BASIC METABOLIC PANELon 10-2 Calcium 8.4 mg/dL Low 8.6-10.3 [facility] Comment on above: Order Comment: No: D o not add to previous draw Performed By: #### 5 0103 ####[facility] [facility] [place] [address], [facility] Chloride 103 mmol/L Normal 98-107 [facility] Comment on above: Order Comment: No: D o not add to previous draw Performed By: #### 5 0103 ####[facility] [facility] [place] [address], [facility] CO2 24 mmol/L Normal 21-31 [facility] Comment on above: Order Comment: No: D o not add to previous draw Performed By: #### 5 0103 ####[facility]3000 [facility].[address] Creatinine 0.72 mg/dL Normal 0.70-1.30 [facility] Comment on above: Order Comment: No: D o not add to previous draw Performed By: #### 5 0103 ####[place] [id number] [facility].[address] eGFR (black) mL/min/{1.73_m2} Normal >60 [facility] Comment on above: Order Comment: No: D o not add to previous draw Performed By: #### 5 0103 ####[facility] eGFR (non-black) mL/min/{1.73_m2} Normal >60 [facility] Comment on above: Order Comment: No: D o not add to previous draw Performed By: #### 5 0103 ####[facility] [place] [address], [facility] Glucose mass conc 191 mg/dL High 70-100 The [facility] Comment on above: Order Comment: No: D o not add to previous draw Performed By: #### 5 3 ####[facility] Potassium molar conc 3.9 mmol/L Normal 3.5-5.1 [facility] Comment on above: Order Comment: No: D o not add to previous draw Performed By: #### 5 3 ####[facility] Sodium 135 mmol/L Low 136-145 [facility] Comment on above: Order Comment: No: D o not add to previous draw Performed By: #### 5 3 ####[facility] Urea nitrogen 12 mg/dL Normal 7-25 The [facility] Comment on above: Order Comment: No: D o not add to previous draw Performed By: #### 5 3 ####[facility] [place] [address], [facility] CBC W/DIFFon 12-17-2016 Basophils Auto #/vol (Bld) 0.3 % Normal 0.0-2.0 [facility] Comment on above: Order Comment: No: D o not add to previous draw Performed By: #### 5 3 ####[facility] [place] [address], [facility] Eosinophils/100 leukocytes 1.0 % Normal 0.0-5.0 [facility] Comment on above: Order Comment: No: D o not add to previous draw Performed By: #### 5 0103 ####[facility] [facility] [address], [facility] Erythrocyte distribution width Auto Ratio (RBC) 15.0 % Normal 11.5-16.9 [facility] Comment on above: Order Comment: No: D o not add to previous draw Performed By: #### 5 0103 ####[facility]3000 [facility].[address] Erythrocytes (RBC) 4.01 mill/mm3 Low 4.30-5.90 [facility] Comment on above: Order Comment: No: D o not add to previous draw Performed By: #### 5 0103 ####[facility]3000 [facility].[address] Hematocrit (HCT) 34.7 % Low 39.0-55.0 The [facility] Comment on above: Order Comment: No: D o not add to previous draw Performed By: #### 5 0103 ####[facility]3000 [facility].[address] Hemoglobin mass conc (Bld) 11.4 g/dL Low 13.9-16.3 [facility] Comment on above: Order Comment: No: D o not add to previous draw Performed By: #### 5 0103 ####[facility]3000 [facility] [place] [address], [facility] Lymphocytes/100 leukocytes 12.8 % Low 20.0-40.0 [facility] Comment on above: Order Comment: No: D o not add to previous draw Performed By: #### 5 0103 ####[facility]3000 [facility] [place] [address], [facility] MCH 28.3 pg Normal 24.0-32.0 [facility] Comment on above: Order Comment: No: D o not add to previous draw Performed By: #### 5 0103 ####[facility] MCHC mass conc (RBC) 32.8 g/dL Normal 32.0-36.0 [facility] Comment on above: Order Comment: No: D o not add to previous draw Performed By: #### 5 0103 ####[facility] MCV 86.5 fL Normal 80.0-100.0 [facility] Comment on above: Order Comment: No: D o not add to previous draw Performed By: #### 5 0103 ####[facility] METHOD Normal RBC Morphology Normal [facility] Comment on above: Order Comment: No: D o not add to previous draw Performed By: #### 5 0103 ####[facility] MONOS 10.4 % High 2-8 [facility] Comment on above: Order Comment: No: D o not add to previous draw Performed By: #### 5 0103 ####[facility] [place] [address], [facility] Neutrophils/100 leukocytes 75.5 % High 50-70 [facility] Comment on above: Order Comment: No: D o not add to previous draw Performed By: #### 5 0103 ####[facility] [place] [address], [facility] PLAT CNT 320 Thou/mm3 Normal 100-400 The [facility] Comment on above: Order Comment: No: D o not add to previous draw Performed By: #### 5 0103 ####[facility]3000 [facility].[address] WBC (Leukocytes) 12.3 Thou/mm3 High 4.0-10.0 The [facility] Comment on above: Order Comment: No: D o not add to previous draw Performed By: #### 5 0103 ####[facility]3000 [facility].[address] HEMOGLOBINon 12-17-2016 Hemoglobin mass conc (Bld) 12.5 g/dL Low 13.9-16.3 [facility] Comment on above: Order Comment: No: D o not add to previous draw Performed By: #### 5 0103 ####[address] POC GLUCOSE LABon 12-17-2016 Glucose mass conc 179 mg/dL High 70-100 The [facility] Comment on above: Performed By: #### 5 0103 ####[address] Glucose mass conc 183 mg/dL High 70-100 The [facility] Comment on above: Performed By: #### 5 0103 ####[address] PROTHROMBIN TIMEon 7 INR Coag RelTime (PPP) 1.15 {INR} Normal 0.91-1.16 [facility] Comment on above: Order Comment: No: D [...] OF ACTION, CLINICALEFFECTIVENESS, AND OPTIMAL THERAPEUTIC RANGE. [id number];108:231S-246S. Performed By: #### 5 0103 ####[facility] [place] [address], [facility] Prothrombin time (PT) Coag time (PPP) 14.8 s Normal 12.3-14.8 [facility] Comment on above: Order Comment: No: D o not add to previous draw Result Comment: ALL RESULTS MUST BE INTERPRETED WITH RESPECT TO BLOOD DRAWING ARTIFACTOR DILUTION ERROR OF ANTICOAGULANT AT THE TIME OF SAMPLING. Performed By: #### 5 0103 ####[facility] [place] [address], [facility] POC GLUCOSE LABon 12-16-2016 Glucose mass conc 391 mg/dL High 70-100 The [facility] Comment on above: Performed By: #### 5 0103 ####[facility] [facility] [place] [address], [facility] Glucose mass conc 160 mg/dL High 70-100 The [facility] Comment on above: Performed By: #### 5 0103 ####[facility] [facility] [place] [address], [facility] Glucose mass conc 141 mg/dL High 70-100 The [facility] Comment on above: Performed By: #### 8 5499 ####[facility] [place] [address], [place] PORTABLE HIP RIGHT 1 OR 2 VW S WITH PELVISon 12-16-2016 PORTABLE HIP RIGHT 1 OR 2 VWS WITH PELVIS [id number] [place] [address] P atient Name: KWABENA AKERS : 1950Sex: MAge: Race: WhiteMRN: [id number]. Location: OUTPPatient Status: OVisit #: [id number] Date: 12/16/2016 11:40:00 AMCompleted Date: 12/16/2016 12:02 PMRequesting Provider: ZACHERY LOOMIS Attending Provider: ONEIL WILLIAMSON Report Copy To: Signs & Symptoms: Pain ( specify Location)History: Patient history not availableComments: Hardware EvaluationExam: PORTABLE HIP RIGHT 1 OR 2 VWS WITH PELVISAccession #: [id number] ======PORTABLE HIP RIGHT 1 OR 2 VWS [...] arthroplasty. Electronically signed by:Connor Pinedo. Transcribed by: [email or web address], User Resident: Electronically Signed by: CONNOR PINEDO @ 12/16/2016 01:09 PM Normal [facility] Comment on above: Order Comment: Hardw are Evaluation RBC'S 2 UNITSon 12-16-2016 CROSSMATCH INTERP 1 COMP Normal [facility] Comment on above: Performed By: #### 5 0103 ####[facility] [place] [address], [facility] CROSSMATCH INTERP 2 COMP Normal [facility] Comment on above: Performed By: #### 5 0103 ####[facility] [place] [address], [facility] PRODUCT CODE 1 E[address] [facility] Comment on above: Performed By: #### 5 0103 ####[facility] [place] [address], [facility] PRODUCT CODE 2 E0336 Normal [address] [facility] Comment on above: Performed By: #### 5 0103 ####[facility] [place] [address], [place] PRODUCT STATUS 1 RE Normal The [facility] Comment on above: Result Comment: Resu lt changed by IF on 12/19/2016 07:07. The previous value was XM. Performed By: #### 5 0103 ####[facility] [facility] [place] [address], [facility] PRODUCT STATUS 2 RE Normal The [facility] Comment on above: Result Comment: Resu lt changed by IF on 12/19/2016 07:07. The previous value was XM. Performed By: #### 5 0103 ####[facility] [place] [address], [place] UNIT ABO 1 A Normal [facility] Comment on above: Performed By: #### 5 0103 ####[facility] [place] [address], [place] UNIT ABO 2 A Normal [facility] Comment on above: Performed By: #### 5 0103 ####[facility]3000 [facility].[address] UNIT ID 1 [id number] Normal The [facility] Comment on above: Performed By: #### 5 0103 ####[facility]3000 [facility].[address] UNIT ID 2 [id number] Normal The [facility] Comment on above: Performed By: #### 5 0103 ####[facility]3000 [facility].[address] UNIT RH 1 Positive Normal [facility] Comment on above: Performed By: #### 5 0103 ####[facility]3000 [facility].[address] UNIT RH 2 Positive Normal [facility] Comment on above: Performed By: #### 5 0103 ####[facility]3000 [facility].[address] APTTon 12-02-2016 aPTT 26.0 s Normal 25.0-35.0 [facility] Comment on above: Result Comment: ALL [...] THIS PURPOSE. Performed By: #### 5 6101, 66574 ####[facility]3000 [facility].[address] BASIC METABOLIC PANELon 10-1 Calcium 9.7 mg/dL Normal 8.6-10.3 [facility] Comment on above: Performed By: #### 0 0071 ####[facility]3000 [facility].[address] Chloride 101 mmol/L Normal 98-107 [facility] Comment on above: Performed By: #### 0 0071 ####[facility] [facility] [address], [facility] CO2 23 mmol/L Normal 21-31 [facility] Comment on above: Performed By: #### 0 0071 ####[facility] [place] [address], [facility] Creatinine 0.75 mg/dL Normal 0.70-1.30 [facility] Comment on above: Performed By: #### 0 0071 ####[place] [address] [facility] [address], [facility] eGFR (black) mL/min/{1.73_m2} Normal >60 The [facility] Comment on above: Performed By: #### 0 0071 ####[facility] [facility] [address], [facility] eGFR (non-black) mL/min/{1.73_m2} Normal >60 [facility] Comment on above: Performed By: #### 0 0071 ####[place] [address] [facility] [place] [address], [facility] Glucose mass conc 173 mg/dL High 70-100 The [facility] Comment on above: Performed By: #### 0 0071 ####[facility] [place] [address], [facility] Potassium molar conc 4.0 mmol/L Normal 3.5-5.1 [facility] Comment on above: Performed By: #### 0 0071 ####[facility] [place] [address], [facility] Sodium 137 mmol/L Normal 136-145 [facility] Comment on above: Performed By: #### 0 0071 ####[facility]3000 [facility].[address] Urea nitrogen 14 mg/dL Normal 7-25 [facility] Comment on above: Performed By: #### 0 0071 ####[place] [address] [facility].[address] CBC COMPLETE BLOOD COUNTon Erythrocyte distribution width Auto Ratio (RBC) 14.5 % Normal 11.5-16.9 [facility] Comment on above: Performed By: #### 5 0608 ####[place] [address] [facility].[address] Erythrocytes (RBC) 5.39 mill/mm3 Normal 4.30-5.90 [facility] Comment on above: Performed By: #### 5 0608 ####[address] Hematocrit (HCT) 46.4 % Normal 39.0-55.0 [facility] Comment on above: Performed By: #### 5 0608 ####[address] Hemoglobin mass conc (Bld) 15.3 g/dL Normal 13.9-16.3 [facility] Comment on above: Performed By: #### 5 0608 ####[address] MCH 28.4 pg Normal 24.0-32.0 [facility] Comment on above: Performed By: #### 5 0608 ####[place] [address] [facility].[address] MCHC mass conc (RBC) 33.0 g/dL Normal 32.0-36.0 [facility] Comment on above: Performed By: #### 5 0608 ####[address] [place] [address], [facility] MCV 86.1 fL Normal 80.0-100.0 [facility] Comment on above: Performed By: #### 5 0608 ####[facility]3000 [facility].[address] PLAT CNT 414 Thou/mm3 High 100-400 The [facility] Comment on above: Performed By: #### 5 0608 ####[facility]3000 [facility].[address] WBC (Leukocytes) 10.0 Thou/mm3 Normal 4.0-10.0 [facility] Comment on above: Performed By: #### 5 0608 ####[facility]3000 [facility].[address] PROTHROMBIN TIMEon 1012-201 7 INR Coag RelTime (PPP) 1.08 {INR} Normal 0.91-1.16 [facility] Comment on above: Result Comment: ACCC P RECOMMENDED INR FOR WARFARIN THERAPY CONDITION INRPROPHYLAXIS OF VENOUS THROMBOSIS 2-3(HIGH-RISK SURGERY)TREATMENT OF VENOUS THROMBOSIS 2-3TREATMENT OF PULMONARY EMBOLISM 2-3PREVENTION OF SYSTEMIC EMBOLISM: 2-3 ACUTE MYOCARDIAL INFARCTION TISSUE HEART VALVES VALVULAR HEART DISEASE ATRIAL FIBRILLATION RECURRENT SYSTEMIC EMBOLISMMECHANICAL HEART VALVE 2.5-3.5 FROM: ORAL ANTICOAGULANTS. MECHANISM OF ACTION, CLINICALEFFECTIVENESS, AND OPTIMAL THERAPEUTIC RANGE. [id number];108:231S-246S. Performed By: #### 5 6101, 77072 ####[facility]3000 [facility].[address] Prothrombin time (PT) Coag time (PPP) 14.0 s Normal 12.3-14.8 [facility] Comment on above: Result Comment: ALL RESULTS MUST BE INTERPRETED WITH RESPECT TO BLOOD DRAWING ARTIFACTOR DILUTION ERROR OF ANTICOAGULANT AT THE TIME OF SAMPLING. Performed By: #### 5 6101, 77074 ####[facility] TYPE AND CROSSMATCHon 2016 ABO INTERPRETATION A Normal The [facility] Comment on above: Performed By: #### 6 2594 ####[address] ANTIBODY SCREEN Negative Normal [facility] Comment on above: Performed By: #### 6 2594 ####[facility] RH INTERPRETATION Positive Normal The [facility] Comment on above: Performed By: #### 6 2594 ####[address] *MRSA/MSSA CULTUREon 017 *MRSA/MSSA CULTURE Clinical Report: (D) Specimen: NASAL SWAB Collected: 10/12/2016 12:17 Status: Final Last Updated: 10/13/2016 14:36 CULT RES (Final) No Methicillin Resistant Staphylococcus aureus Isolated ISO (Final) No Methicillin Sensitive Staphylococcus aureus Isolated Normal [facility] Comment on above: Performed By: #### 3 1302 ####[facility]3000 [facility].[address] CBC W/DIFFon 10-12-2016 Basophils Auto #/vol (Bld) 0.6 % Normal 0.0-2.0 [facility] Comment on above: Performed By: #### 5 0103 ####[facility]3000 [facility] [place] [address], [facility] Eosinophils/100 leukocytes 5.6 % High 0.0-5.0 [facility] Comment on above: Performed By: #### 5 0103 ####[facility]3000 [facility].[address] Erythrocyte distribution width Auto Ratio (RBC) 14.7 % Normal 11.5-16.9 [facility] Comment on above: Performed By: #### 5 0103 ####[facility]3000 [facility] [place] [address], [facility] Erythrocytes (RBC) 5.59 mill/mm3 Normal 4.30-5.90 [facility] Comment on above: Performed By: #### 5 0103 ####[facility]3000 [facility].[address] Hematocrit (HCT) 47.7 % Normal 39.0-55.0 [facility] Comment on above: Performed By: #### 5 0103 ####[facility] Hemoglobin mass conc (Bld) 15.9 g/dL Normal 13.9-16.3 [facility] Comment on above: Performed By: #### 5 0103 ####[facility]3000 [facility] [place] [address], [facility] Lymphocytes/100 leukocytes 18.5 % Low 20.0-40.0 [facility] Comment on above: Performed By: #### 5 0103 ####[facility] MCH 28.4 pg Normal 24.0-32.0 [facility] Comment on above: Performed By: #### 5 3 ####[facility]3000 [facility] [place] [address], [facility] MCHC mass conc (RBC) 33.3 g/dL Normal 32.0-36.0 The [facility] Comment on above: Performed By: #### 5 0103 ####[facility] MCV 85.4 fL Normal 80.0-100.0 [facility] Comment on above: Performed By: #### 5 0103 ####[facility] [facility] [place] [address], [facility] METHOD Normal [facility] Comment on above: Result Comment: Auto mated differential performedNormal RBC Morphology Performed By: #### 5 0103 ####[facility]3000 [facility].[address] MONOS 7.8 % Normal 2-8 [facility] Comment on above: Performed By: #### 5 0103 ####[facility]3000 [facility].[address] Neutrophils/100 leukocytes 67.5 % Normal 50-70 [facility] Comment on above: Performed By: #### 5 0103 ####[facility]3000 [facility] [place] [address], [facility] PLAT CNT 399 Thou/mm3 Normal 100-400 The [facility] Comment on above: Performed By: #### 5 0103 ####[facility] [facility].[address] WBC (Leukocytes) 11.0 Thou/mm3 High 4.0-10.0 [facility] Comment on above: Performed By: #### 5 0103 ####[facility]3000 [facility].[address] HEMOGLOBIN A1Con 10-12-2016 Glucose mass conc 180 mg/dL High 70-126 [facility] Comment on above: Performed By: #### 4 6401 ####[facility]3000 [facility].[address] Hemoglobin A1c/Hemoglobin.tot al mass fraction (Bld) 7.9 % High 4.0-6.0 [facility] Comment on above: Performed By: #### 4 6447 ####[facility] HIP RIGHT 1 OR 2 VWS WITH PE LVISon 10-12-2016 HIP RIGHT 1 OR 2 VWS WITH PELVIS [facility] [id number] [place] [address] P atient Name: KWABENA AKERS : 1950Sex: MAge: Race: WhiteMRN: [id number]. Location: 84Patient Status: OVisit #: [id number] Date: 10/12/2016 10:45:00 AMCompleted Date: 10/12/2016 10:48 AMRequesting Provider: ONEIL WILLIAMSON Attending Provider: ONEIL WILLIAMSON Report Copy To: Signs & Symptoms: M16.11 Unilateral primary osteoarthritis, right hip [id number]: AthenaComments: , , , Ordering Provider - ONEIL WILLIAMSON MD , Rendering Provider - ONEIL WILLIAMSON MD , Exam: HIP RIGHT 1 OR 2 VWS WITH PELVISAccession #: [id number] ======HIP RIGHT 1 OR 2 VWS WITH [...] moderate. Electronically signed by:Geovanny Traylor. Transcribed by: [email or web address], User Resident: Electronically Signed by: GEOVANNY TRAYLOR @ 10/12/2016 11:55 AM Normal [facility] Comment on above: Order Comment: , , = ========= , Ordering Provider - ONEIL WILLIAMSON MD , Rendering Provider - ONEIL WILLIAMSON MD , Vital Signs Date Time Vital Sign Value Performing Clinician Chelly bhatt 01-17-2019 11:40-0500 Body Temperature 97.11 [degF] [address] 01-17-2019 11:40-0500 BP Diastolic 97 mm[Hg] [address] 01-17-2019 11:40-0500 BP Systolic 162 mm[Hg] [address] 01-17-2019 11:40-0500 Pulse (Heart Rate) 96 /min [address] 01-17-2019 11:40-0500 Respiratory Rate 20 /min [address] 01-15-2019 11:10-0500 BP Diastolic 81 mm[Hg] [address] 01-15-2019 11:10-0500 BP Systolic 164 mm[Hg] [address] 01-15-2019 10:45-0500 Body Temperature 98.1 [degF] [address] 01-15-2019 10:45-0500 Pulse (Heart Rate) 97 /min [address], [place] 01-15-2019 10:45-0500 Respiratory Rate 20 /min [address] [facility] [place] 01-14-2019 10:10-0500 Body Temperature 97.81 [degF] [address] [employer], [place] 01-14-2019 10:10-0500 BP Diastolic 60 mm[Hg] [address] , [place] 01-14-2019 10:10-0500 BP Systolic 165 mm[Hg] [address] , [place] 01-14-2019 10:10-0500 Pulse (Heart Rate) 92 /min [address], [place] 01-14-2019 10:10-0500 Pulse Oximetry 96 % [address] 01-14-2019 10:10-0500 Respiratory Rate 16 /min [address] [facility] [place] 01-13-2019 10:50-0500 BP Diastolic 77 mm[Hg] [address] , [place] 01-13-2019 10:50-0500 BP Systolic 154 mm[Hg] [address] , [place] 01-13-2019 10:50-0500 Pulse (Heart Rate) 83 /min [address], [place] 01-13-2019 10:18-0500 Body Temperature 98.4 [degF] [address] [facility] [place] 01-13-2019 10:18-0500 Pulse Oximetry 99 % [address] 01-13-2019 10:18-0500 Respiratory Rate 20 /min [address] [facility] [place] 01-12-2019 17:45-0500 BP Diastolic 59 mm[Hg] [facility] [place] 01-12-2019 17:45-0500 BP Systolic 137 mm[Hg] [facility] , [place] 01-12-2019 17:45-0500 Pulse (Heart Rate) 75 /min [facility] [place] 01-12-2019 17:45-0500 Pulse Oximetry 95 % [facility] [place] 01-12-2019 17:45-0500 Respiratory Rate 18 /min [facility] [place] 01-12-2019 17:18-0500 Body Temperature 97.59 [degF] Jessica Cooper [facility], [place] 01-12-2019 14:45-0500 BMI (Body Mass Index) 58.18 kg/m2 Jessica Ruff [facility], [place] 01-12-2019 14:45-0500 Body weight 178.72 kg Jessica Cooper [facility] , [place] 01-12-2019 14:45-0500 Height 175.3 cm [facility] , [place] Encounters Encounter Date Encounter Type Care Provider Facility Start: 03-31-2023 End: 04-03-2023 ambulatory MARISOL Ruff [place] [facility] Start: 03-31-2023 End: 04-02-2023 Subsequent hospital visit by physician Marisol Carr MD Work Phone: [facility] Comment on above: Hyperlipidemia, unsp ecified hyperlipidemia type; Type 2 diabetes mellitus with hyperglycemia, with long-term current use of insulin (HCC); Essential hypertension Abnormal x-ray; Lung density on x-ray Start: 02-09-2023 End: 02-10-2023 ambulatory TAY Delano SHARDA [facility] Start: 01-26-2023 End: 01-27-2023 ambulatory MARISOL Led[facility] Start: 01-24-2023 End: 01-25-2023 ambulatory MARISOL [facility]es[facility] Start: 01-20-2023 End: 01-21-2023 ambulatory MARISOL Ledes[facility] Start: 01-17-2023 End: 01-18-2023 ambulatory MARISOL [facility]es[facility] Start: 01-12-2023 End: 01-13-2023 ambulatory MARISOL ALEIDA [facility] Start: 01-10-2023 End: 01-11-2023 ambulatory MARISOL Ledes[facility] Start: 01-07-2023 End: 01-08-2023 ambulatory MARISOL [facility]uff [facility] Start: 01-04-2023 End: 01-05-2023 ambulatory MARISOL [facility] Start: 12-22-2022 End: 12-25-2022 ambulatory MARISOL [facility] Start: 10-27-2022 End: 10-28-2022 ambulatory MARISOL [facility] Start: 09-16-2022 End: 09-17-2022 ambulatory MARISOL Ruff [facility] Start: 04-29-2022 End: 04-30-2022 ambulatory PHIL Gaxiola MOLINA [facility] Start: 04-29-2022 End: 04-29-2022 Subsequent hospital visit by physician Phil Molina MD Work Phone: [facility] Comment on above: Essential hypertensi on Start: 07-21-2021 End: 07-21-2021 Subsequent hospital visit by physician Phil Molina MD Work Phone: [facility] Comment on above: Left lower quadrant abdominal pain Start: 06-01-2021 End: 06-01-2021 Patient encounter procedure Phil Molina MD Work Phone: [facility] Start: 06-01-2021 End: 06-01-2021 Subsequent hospital visit by physician Phil Molina MD Work Phone: [facility] Comment on above: Encounter for prosta te cancer screening; Encounter for Medicare annual wellness exam; Type 2 diabetes mellitus without complication, without long-term current use of insulin (HCC) Start: 01-08-2020 End: 01-08-2020 Subsequent hospital visit by physician Phil Molina [facility] Comment on above: Encounter for prosta te cancer screening; Encounter for Medicare annual wellness exam; Type 2 diabetes mellitus without complication, without long-term current use of insulin (HCC) Start: 01-17-2019 End: 01-17-2019 Subsequent hospital visit by physician [facility] Op Treatment Rm 03 [facility] ([facility] Start: 01-15-2019 End: 01-15-2019 Subsequent hospital visit by physician [facility] Op Treatment Rm 03 [facility] ([facility] Start: 01-14-2019 End: 01-14-2019 Subsequent hospital visit by physician [facility] Comment on above: Arrived Start: 01-13-2019 End: 01-13-2019 Subsequent hospital visit by physician [facility] Op Treatment 01 [facility] Comment on above: Arrived Start: 01-12-2019 End: 01-12-2019 Patient encounter procedure JESSICA COOPER [facility] Start: 01-12-2019 End: 01-12-2019 Subsequent hospital visit by physician Jessica Cooper Work Phone: [facility] Comment on above: Gluteal abscess (Sue herber Dx) Start: 09-22-2017 End: 09-22-2017 Evaluation and management of inpatient PHIL MOLINA [facility] Start: 02-03-2017 End: 02-04-2017 Ambulatory ONEIL WILLIAMSON Facility:[facility] Start: 01-04-2017 End: 01-05-2017 Ambulatory ONEIL J GEING Facility:[facility] Start: 12-28-2016 End: 12-29-2016 Ambulatory ONEIL J GEHLING Facility:[facility] Start: 12-16-2016 End: 12-17-2016 Evaluation and management of inpatient ONEIL J GEHLING Facility:[facility] Start: 10-12-2016 End: 10-13-2016 Ambulatory ONEIL Sb GETERRELLING Facility:[facility] Procedures Date Procedure Procedure Detail Performing [...] SIGNS JESSICA GARCIALUISMain PERALTAAleisha Start: 01-12-2019 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 Start: 03-09-2026 Hepatitis C screen Hepatitis C screen [facility] [place] Comment on above: Postponed from 1950 (Unavailable) Start: 03-09-2026 Hepatitis C screening Hepatitis C screen [employer] Comment on above: Postponed from 1950 (Unavailable) Postponed from 06/03 (Unavailable) Start: 08-05-2024 Colon cancer screen colonoscopy Colon cancer screen colonoscopy [employer] [place] Start: 08-05-2024 Screening for malignant neoplasm of colon [employer] Start: 03-31-2024 GFR test (Diabetes, CKD 3-4, OR last GFR 15-59) GFR test (Diabetes, CKD 3-4, OR last GFR 15-59) [employer] Start: 03-31-2024 Lipid panel Lipids [employer] Start: 03-18-2024 Depression Monitoring Depression Monitoring [employer] Start: 02-10-2024 Hemoglobin A1c measurement A1C test (Diabetic or Prediabetic) [facility] Start: 10-28-2023 Urine screening for protein Diabetic Alb to Cr ratio (uACR) test [facility] Start: 05-04-2023 End: 05-04-2023 Patient encounter procedure [facility] Comment on above: emg rue Start: 04-30-2023 GFR test (Diabetes, CKD 3-4, OR last GFR 15-59) GFR test (Diabetes, CKD 3-4, OR last GFR 15-59) [facility] Start: 04-28-2023 End: 04-28-2023 Patient encounter procedure 04/28/2023 10:45 AM EST Office Visit [facility] [address] [place] [address] [address] [place], [place] [id number] Marisol Carr MD [address] [place] [address] [address] [place] [address] 3 [place] [facility] Comment on above: 3 [place] Start: 03-25-2023 Depression Monitoring Depression Monitoring [facility] Start: 03-25-2023 Hemoglobin A1c measurement A1C test (Diabetic or Prediabetic) [facility] Start: 01-17-2023 Annual Wellness Visit (Medicare) Annual Wellness Visit (Medicare) [facility] Start: 07-15-2022 End: 07-15-2022 Patient encounter procedure 07/15/2022 Office Visit Primary Care Marisol Carr MD [address] [place] [address] [address] [place] [address] [facility] Start: 06-01-2022 Creatinine measurement Creatinine monitoring [facility] Start: 06-01-2022 Lipid panel Lipids [facility] Start: 06-01-2022 Potassium monitoring Potassium monitoring [facility] Start: 06-01-2022 Prostate specific antigen measurement Prostate Specific Antigen (PSA) Screening or Monitoring [facility] Start: 05-26-2022 Annual Wellness Visit (AWV) Annual Wellness Visit (AWV) [facility] Start: 05-25-2022 Depression Monitoring Depression Monitoring [facility] Start: 10-06-2021 End: 10-06-2021 Patient encounter procedure 10/06/2021 Office Visit Gastroenterology Mateo Melanie Marcia [address] [facility] [place] [address] [facility] Start: 08-27-2021 End: 08-27-2021 Patient encounter procedure 08/27/2021 Office Visit Primary Care Phil Molina MD [address] [place] [address] [phone] [facility] Start: 08-24-2021 Hemoglobin A1c measurement A1C test (Diabetic or Prediabetic) [facility] Start: 08-15-2021 Diabetic foot examination Diabetic foot exam [facility] Start: 02-11-2021 COVID-19 Vaccine (4 - Booster for Moderna series) COVID-19 Vaccine (4 - Booster for Moderna series) [facility] Start: 01-07-2021 HbA1c (Bld) [Mass fraction] A1C test (Diabetic or Prediabetic) [facility] [place] [facility] [place] Start: 01-07-2021 Lipid panel Lipid screen [facility] Start: 01-07-2021 Urine screening for protein [facility] [place] [facility] [employer] Start: 04-08-2020 End: 04-08-2020 Office Visit 04/08/2020 Office Visit Family Medicine Phil Molina MD [address] [phone] Phil Molina MD Start: 04-14-2019 A1C test (Diabetic or Prediabetic) A1C test (Diabetic or Prediabetic) [facility] [place] [facility] [employer], [place] Start: 03-31-2019 [object Object] Diabetic foot exam [facility] [place] [facility] [place] Start: 03-31-2019 Diabetic foot examination Diabetic foot exam [facility], [place] Start: 03-31-2019 Diabetic microalbuminuria test Diabetic microalbuminuria test [facility] [place] [facility] [place] Start: 01-30-2019 End: 01-30-2019 Office Visit 01/30/2019 Office Visit General Surgery Jessica Cooper MD [address] [place] [address] [address] [place] [address] [phone] [facility] Start: 01-22-2019 End: 01-22-2019 Appointment [...] Visit General Surgery Jessica Cooper MD [address] [facility] [address] [place] [address] [phone] [facility] Start: 01-14-2019 End: 01-14-2019 Appointment 01/14/2019 Appointment Infusion Therapy [facility] Start: 11-23-2018 Pneumococcal 65+ years Vaccine (2 of 2 - PPSV23) Pneumococcal 65+ years Vaccine (2 of 2 - PPSV23) [place], [place] Start: 10-22-2018 Influenza vaccination Flu vaccine (#1) [place] Start: 09-22-2018 Creatinine measurement Creatinine monitoring [place], [place] Start: 09-22-2018 Creatinine monitoring Creatinine monitoring [place], [place] Start: 09-22-2018 Lipid panel Lipid screen [place] Start: 09-22-2018 Lipid screen Lipid [place] Start: 09-22-2018 Potassium monitoring Potassium monitoring [place] Start: 07-19-2018 Annual Wellness Visit (AWV) Annual Wellness Visit (AWV) [place] Start: 02-05-2016 Diabetic retinal exam Diabetic retinal exam [facility] Start: 02-05-2016 Glaucoma screening Diabetic retinal exam [facility] Start: 2012 Respiratory Syncytial Virus (RSV) or age 60 yrs+ (1 - 1-dose 60+ series) Respiratory Syncytial Virus (RSV) or age 60 yrs+ (1 - 1-dose 60+ series) [facility] Start: 2002 Shingles Vaccine (1 of 2) Shingles Vaccine (1 of 2) [facility] Start: 1997 Screening for malignant neoplasm of colon [facility] Start: 06-04-1971 DTaP/Tdap/Td vaccine (1 - Tdap) DTaP/Tdap/Td vaccine (1 - Tdap) [facility] Start: 06-04-1963 DTaP/Tdap/Td vaccine (1 - Tdap) DTaP/Tdap/Td vaccine (1 - Tdap) [place] [employer] [place] Comment on above: ONE TIME for 1 Occurrences starting 12/23 End: 01-12-2019 Blood glucose - POCT Blood glucose - POCT Point of Care Testing Routine One Time for 1 Occurrences starting 01/12/2019 until 01/12/2019 [place] Comment on above: One Time for 1 Occurrences starting 12/23 until 01/12/2019 Initiate Oxygen Ther apy Protocol Initiate Oxygen Therapy Protocol Respiratory Care Routine Daily until discontinued starting 01/12/2019 [place] Comment on above: Daily until discontinued starting 2018 Immunizations Immunization Date Immunization Notes [facility] Provider [facility] 11-27-2021 Influenza, FLUAD, (a ge 65 y+), Adjuvanted, 0.5mL Phil Molina MD Work Phone: [facility] Work Phone: 11-20-2020 Influenza, Quadv, adjuvanted, 65 yrs +, IM, PF (Fluad) Phil Molina MD Work Phone: [facility] 05-14-2020 COVID-19, Moderna, Primary or Immunocompromised, PF, 100mcg/0.5mL Phil Molina MD Work Phone: [facility] Work Phone: 04-16-2020 COVID-19, Moderna, Primary or Immunocompromised, PF, 100mcg/0.5mL Phil Molina MD Work Phone: [facility] 01-08-2020 pneumococcal polysaccharide vaccine, 23 valent [facility] [place] 11-19-2019 Influenza, Quadv, adjuvanted, 65 yrs +, IM, PF (Fluad) [facility] 02-22-2019 influenza virus vacc ine, unspecified formulation [facility] , [place] 02-22-2019 influenza, injectabl e, quadrivalent, contains preservative [facility] [place] 11-23-2017 pneumococcal conjuga te vaccine, 13 valent [facility], [place] 11-23-2017 Seasonal trivalent influenza vaccine, adjuvanted, preservative free [facility], [place] 12-17-2016 influenza virus vacc ine, unspecified formulation [facility] 12-08-2015 Influenza Vaccine, unspecified formulation [facility] [place] 12-09-2014 influenza virus vacc ine, unspecified formulation [facility] [place] 10-18-2013 influenza virus vacc ine, unspecified formulation [facility] 12-11-2012 influenza virus vacc ine, unspecified formulation [facility] [place] 03-13-2012 pneumococcal polysaccharide vaccine, 23 valent [facility], [place] 03-03-2010 influenza virus vacc ine, whole virus [facility] Payers Date Payer Category Payer Unknown [id number] 2017 Medicare [id number] 2017 Medicare MEDICARE MEDICAR E PART A AND B xxxxxxxxxxx 2017-Present [phone] [place] [address] xxxxxxxxxxx [id number] 2017 Unknown [employer] MEDIC[employer] SUPP xxxxxx-xx 2017-Present [phone] ATTN INDIVIDUAL CLAIMS [id number] [place] [address] xxxxxx-xx [id number] 2017 Unknown [id number] 2014 Medicare [id number] 1950 Unknown [id number] 1950 Unknown [id number] [id number]. 1952 Unknown [id number] [id number] 1952 Unknown [id number] [id number] 1952 Unknown [id number] [id number] 1952 Unknown [id number] [id number] 1952 Unknown [id number] [id number] 1952 Unknown [id number] [id number] 1952 Unknown [id number] [id number] 1952 Unknown [id number] [id number] 1952 Unknown [id number] 2.16.840.1.868199.3.579.2.173 1952 Unknown [id number] [id number] 1952 Unknown [id number] [id number] 1952 Unknown [id number] [id number] 1952 Unknown [id number] [id number] 1952 Unknown [id number] [id number] Unknown [id number] Social History Date Type Detail Facility Start: 01-12-2019 End: 10-06-2021 Tobacco smoking status NHIS Former smoker [facility] Start: 02-21-1959 End: 02-21-1979 History of tobacco use Current smoker [place] Start: 02-21-1959 End: 02-21-1979 History of tobacco use Cigarette Smoker [place] Start: 01-12-2019 End: 03-25-2022 Cigarettes smoked current (pack per day) - Reported [place] Start: 01-12-2019 End: 03-18-2023 Alcohol intake Current non-drinker of alcohol (finding) [place] Start: 03-25-2011 Alcohol Comment rare [place], [place] Start: 1950 Sex Assigned At Not on file [place] Start: 01-08-2020 End: 10-06-2021 Tobacco use and exposure Never used [place], [place] Start: 05-25-2021 End: 03-25-2022 History SDOH [facility] Start: 05-25-2021 History SDOH Physica l Activity DPW 0 [facility] Work Phone: Start: 08-15-2020 End: 03-25-2022 History SDOH Financial 5 [facility] Work [facility]: Start: 08-15-2020 End: 03-25-2022 History SDOH Transport Med 2 [employer] Work Phone: Start: 05-25-2021 End: 03-25-2022 Alcohol Use Disorder Identification Test - Consumption [AUDIT-C] [employer] How often to you hav e a drink containing alcohol? Never [employer] Average Number of Drinks Not on file [employer] (I/We) worried wheth er (my/our) food would run out before (I/we) got money to buy more. Never true [employer] At any time in the p ast 12 months, were you homeless or living in nursing home [including now]? No [employer] Medical Equipment Procedure Code Equipment Code Equipment Origin al Text Equipment Identifier Dates 1 strip by Other route 2 times daily [id number] Start: 04-03-2018 1 each by In Vit ro route 2 times daily. As needed. [id number] each by Does n ot apply route 2 times daily [id number] Start: 04-03-2018 1 strip by Other route 2 times daily [id number] Start: 06-13-2020 1 strip by Other route 2 times daily [id number] Start: 07-02-2021 Use needle to in ject Levemir in to the skin every night. [id number] Start: 06-25-2021 1 strip by Other route 2 times daily [id number] Start: 08-26-2022 Use needle to in ject [employer] in to the skin every night. [id number] Start: 11-12-2022 1 each by Does n ot apply route daily [id number] Start: 01-20-2023 Goals Date Patient Goal Desired Activity /State Comment on above: I will try to decrea se the high sugar foods in my diet. Barriers: lack of motivation Plan for overcoming my barriers: Patient will participate in care coordination. Patient will review diet with reprographics associate. Confidence: 07/31 Anticipated Goal Completion Date: 02/21/2020 Comment on above: Formatting of this n ote might be different from the original. I will take my medication as directed. I will notify my provider of any problems with medications, like adverse effects or side effects. 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 if I am unable to afford my [...] of insulin (HCC) documented in this encounter [employer] Phone: Evaluation note Note Date & Type Note Facility Evaluation note Diagnosis Left lower quadrant abdominal pain documented in this encounter [employer] Phone: Evaluation note Note Date & Type Note Facility Evaluation note Diagnosis Essential hypertension Unspecified essential hypertension documented in this encounter [employer] Phone: Evaluation note Note Date & Type Note Facility Evaluation note Diagnosis Hyperlipidemia, unspecified hyperlipidemia type Type 2 diabetes mellitus with hyperglycemia, with long-term current use of insulin (HCC) Essential hypertension Unspecified essential hypertension documented in this encounter [employer] Evaluation note Note Date & Type Note Facility Evaluation note Diagnosis Abnormal x-ray Other nonspecific (abnormal) findings on radiological and other examinations of body structure Lung density on x-ray Other diseases of lung, not elsewhere classified documented in this encounter [employer] 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 anation Advance Directives and Living Will Power of Huc Ob Latest Code Status on File Code Status Date Activated Date Inactivated Comments Full Code 01/12/2019 4:48 PM Full Code 01/12/2019 4:11 PM 01/12/2019 4:48 PM Full Code 09/22/2017 6:50 AM 09/22/2017 3:18 PM Full Code 09/22/2017 5:54 AM 09/22/2017 6:50 AM Full Code 09/13/2016 7:35 AM 09/15/2016 6:35 PM Documents on File Type Date Recorded 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 anation Advance Directives and Living Will Power of Huc Ob Latest Code Status on File Code Status Date Activated Date Inactivated Comments Full Code 01/12/2019 4:48 PM 01/12/2019 8:21 PM Full Code 01/12/2019 4:11 PM 01/12/2019 4:48 PM Full Code 09/22/2017 6:50 AM 09/22/2017 3:18 PM Full Code 09/22/2017 5:54 AM 09/22/2017 6:50 AM Full Code 09/13/2016 7:35 AM 09/15/2016 6:35 PM Documents on File Type Date Recorded 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 anation ACP-Advance Directive ACP-Power of Huc Ob Healthcare Agents on File Name Relationship Healthcare [...] Agents on File Name Relationship Healthcare Agent Mirnaoh p Communication Stormy Akers Spouse Primary Decision Bryant pascual Discharge Instructions * Instructions* Nuvia Gutierres RN - 01/12/2019 Return to [place] ED daily at 10 am for dressing change: Remove old dressing, bacitracin ointment, nu-gauze, then fluff outer dressing. Leave sutured alejo drain in place. Take bag of dressing supplies with you to the ED when you go. May change outer dressing at home if it becomes saturated before next dressing change. Follow up with Dr. Cooper in [place] on Tuesday. Call Tuesday to make appointment [phone]. documented in this encounter* Discharge Instr - [...] [address] [place] [address] Relation: Spouse Past Surgical History: Past Surgical [...] yrs and older) 11/23/2017 Pneumococcal Conjugate 13-valent ([id number]) 11/23/2017 Pneumococcal Polysaccharide ([id number]) 03/13/2012 Active Problems: Patient Active Problem List Diagnosis Code Essential hypertension I10 Type 2 diabetes mellitus without complication, without long-term current use of insulin ([facility]) E11.9 Hyperlipidemia E78.5 Acute pain of right hip M25.551 Primary osteoarthritis of right hip M16.11 Osteoarthritis of knee M17.10 Degenerative arthritis of hip M16.9 Depression, major, in remission ([facility]) F32.5 Numbness R20.0 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 Facial droop R29.810 Diabetes mellitus due to underlying condition with hyperglycemia, without long- term current use of insulin ([facility]) E08.65 Morbid obesity with BMI of 50.0-59.9, adult ([facility]) E66.01, Z68.43 Gluteal abscess L02.31 Isolation/Infection: Isolation No Isolation Patient Infection Status None to display Nurse Assessment: Last Vital Signs: BP (!) 154/77 Pulse 83 Temp 98.4 F (36.9 C) (Tympanic) Resp 20 SpO2 99% Last documented pain score (0-10 scale): Last Weight: Wt Readings from Last 1 Encounters: 01/12/19 (!) 394 lb (178.7 kg) Mental Status: {IP PT MENTAL STATUS:59993} IV Access: { JESSICA IV ACCESS:500965798} Nursing Mobility/ADLs: Walking {CHP DME ADLs:282230724} Transfer {CHP DME ADLs:117453768} Bathing {CHP DME ADLs:078502289} Dressing {CHP DME ADLs:093790551} Toileting {CHP DME ADLs:392978533} Feeding {CHP DME ADLs:210492674} Lead Clinical Research Coordinator {P DME ADLs:310036829} Med Delivery { JESSICA MED Delivery:622115805} Wound Care Documentation and Therapy: Elimination: Continence: Bowel: {YES / NO:} Bladder: {YES / NO:} Urinary Catheter: {Urinary Catheter:365670299} Colostomy/Ileostomy/Ileal Conduit: {YES / NO:42868} Date of Last BM: No intake or output data in the 24 hours ending 01/13/19 1418 No intake/output data recorded. Safety Concerns: { JESSICA Safety Concerns:689051098} Impairments/Disabilities: { JESSICA Impairments/Disabilities:716130259} Nutrition Therapy: Current Nutrition Therapy: { JESSICA Diet List:179126895} Routes of Feeding: {CHP DME Other Feedings:326555006} Liquids: {Digital Marketing Analyst liquid thickness:53179} Daily Fluid Restriction: {CHP DME Yes amt example:757481822} Last Modified Barium Swallow with Video (Video Swallowing Test): {Done Not Done Date:243639553} Treatments at the Time of Hospital Discharge: Respiratory Treatments: Oxygen Therapy: {Therapy; copd oxygen:46745} Ventilator: { CC Vent List:915720620} Rehab Therapies: {THERAPEUTIC INTERVENTION:6969832624} Weight Bearing Status/Restrictions: {[facility] Weight Bearin} Other Medical Equipment (for information only, NOT a DME order): {EQUIPMENT:280415603} Other Treatments: Patient's personal belongings (please select all that are sent with patient): {[facility] DME Belongings:356138132} RN SIGNATURE: {Esignature:182106679} CASE MANAGEMENT/SOCIAL WORK SECTION Inpatient Status Date: Readmission Risk Assessment Score: Readmission Risk Risk of Unplanned Readmission: 0 Discharging to Facility/ Agency Name: Address: Phone: Fax: Dialysis Facility (if applicable) Name: Address: Dialysis Schedule: Phone: Fax: Farm Instructor/Project Associate signature: {Esignature:093291585} PHYSICIAN SECTION Prognosis: {Prognosis:0865578041} Condition at Discharge: { Patient Condition:024485246} Rehab Potential (if transferring to Rehab): {Prognosis:0113574947} Recommended Labs or Other Treatments After Discharge: Physician Certification: I certify the above information and transfer of Kwabena Akers is necessary for the continuing treatment of the diagnosis listed and that he requires {Admit to Appropriate Level of Care:51583} for {GREATER/LESS:767556754} 30 days. Update Admission H&P: {CHP DME Changes in HandP:451056351} PHYSICIAN SIGNATURE: {Esignature:064652994} * Additional Instructions* Ava Enriquez RN - [...] [address] [place] [id number] Relation: Spouse Past Surgical History: Past Surgical [...] yrs and older) 11/23/2017 Pneumococcal Conjugate 13-valent ([id number]) 11/23/2017 Pneumococcal Polysaccharide ([id number]) 03/13/2012 Active Problems: Patient Active Problem List Diagnosis Code Essential hypertension I10 Type 2 diabetes mellitus without complication, without long-term current use of insulin (HCC) E11.9 Hyperlipidemia E78.5 Acute pain of right hip M25.551 Primary osteoarthritis of right hip M16.11 Osteoarthritis of knee M17.10 Degenerative arthritis of hip M16.9 Depression, major, in remission ([facility]) F32.5 Numbness R20.0 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 Facial droop R29.810 Diabetes mellitus due to underlying condition with hyperglycemia, without long- term current use of insulin ([facility]) E08.65 Morbid obesity with BMI of 50.0-59.9, adult ([facility]) E66.01, Z68.43 Gluteal abscess L02.31 [...] MENTAL STATUS:} IV Access: { JESSICA IV ACCESS:603620472} Nursing Mobility/ADLs: Walking {CHP DME ADLs:585744025} Transfer {CHP DME ADLs:158438590} Bathing {CHP DME ADLs:080985768} Dressing {CHP DME ADLs:403909940} Toileting {CHP DME ADLs:366369640} Feeding {P DME ADLs:063661581} Lead Clinical Research Coordinator {P DME ADLs:496990347} Med Delivery { JESSICA MED Delivery:472827584} Wound Care Documentation and Therapy: Elimination: Continence: Bowel: {YES / NO:} Bladder: {YES / NO:} Urinary Catheter: {Urinary Catheter:285767422} Colostomy/Ileostomy/Ileal Conduit: {YES / NO:} Date of Last BM: No intake or output data in the 24 hours ending 01/14/19 1045 No intake/output data recorded. Safety Concerns: { JESSICA Safety Concerns:408750510} Impairments/Disabilities: { JESSICA Impairments/Disabilities:298448819} Nutrition Therapy: Current Nutrition Therapy: { JESSICA Diet List:110292050} Routes of Feeding: {CHP DME Other Feedings:801740056} Liquids: {Digital Marketing Analyst liquid thickness:49486} Daily Fluid Restriction: {CHP DME Yes amt example:067127591} Last Modified Barium Swallow with Video (Video Swallowing Test): {Done Not Done Date:} Treatments at the Time of Hospital Discharge: Respiratory Treatments: Oxygen Therapy: {Therapy; copd oxygen:69910} Ventilator: { CC Vent List:251412153} Rehab Therapies: {THERAPEUTIC INTERVENTION:7853912335} Weight Bearing Status/Restrictions: { CC Weight Bearin} Other Medical Equipment (for information only, NOT a DME order): {EQUIPMENT:122167515} Other Treatments: Patient's personal belongings (please select all that are sent with patient): {[facility] DME Belongings:376529099} RN SIGNATURE: {Esignature:864937621} CASE MANAGEMENT/SOCIAL WORK SECTION Inpatient Status Date: Readmission Risk Assessment Score: Readmission Risk Risk of Unplanned Readmission: 0 Discharging to Facility/ Agency Name: Address: Phone: Fax: Dialysis Facility (if applicable) Name: Address: Dialysis Schedule: Phone: Fax: Farm 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 Update Admission H&P: {CHP DME Changes in HandP:337086392} PHYSICIAN SIGNATURE: {Esignature:746675737} * Additional Instructions* Ava Enriquez RN - [...] 01/15/2019 Outpatient Discharge Instructions for Wounds [address] [address] You are advised to carry out the [...] explained to pt, as well as supervisor intermediates who makes arrangements for pt to go to [place] ED for daily dressing changes at 1000. [...] CT CHEST W CONTRAST Marisol Carr MD [address] [place], [place] [address] [place] [address] Referral ID Status Reason Start Date Expiration Date V isits Requested Visits Authorized [id number] Not Required - RTA 03/18/2023 03/17/2024 1 1 Additional Source Comments (unrecognized sect ion and content) No Status Records FoundNo Status Records FoundNo Status Records FoundNo Status Records Found INFORMATION SOURCE (unrecogn ized section and content) DATE CREATED AUTHOR 08/16/[address] [facility] DATE CREATED AUTHOR AUTHOR'S ORGANIZ ATION 11/18/2017 [facility] DATE CREATED AUTHOR AUTHOR'S ORGANIZ ATION 01/17/2019 [facility] DATE CREATED AUTHOR AUTHOR'S ORGANIZ ATION 04/04/2023 [facility] pital Reason for Visit (unrecogniz ed section and content) Status Reason Specialty Diagnoses / Procedures Referre d By Contact Referred To Contact Diagnoses nancy rectal abscess Procedures [place] I&D RECTAL SUBMUCOSAL ABSCESS RECTAL PERIRECTAL INCISION AND DRAINAGE Jessica Cooper MD [address] [place] [address] [address] [place] [address] [facility] Specialty Diagnoses / Procedures Referred By Contac t Referred To Contact Radiology Diagnoses Abnormal x-ray Lung density on x-ray Procedures CT CHEST W CONTRAST Marisol Carr MD [address] [place], [place] [address] [place] [address] Referral ID Status Reason Start Date Expiration Date V isits Requested Visits Authorized [id number] Not Required - RTA 03/18/2023 03/17/2024 1 1 Care Teams (unrecognized sec tion and content) 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 Start Date End Date Phil Molina MD [address] [place] [address] [address] [place] [address] PCP - General 03/22/11 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 Start Date End Date Phil Molina MD [address] [place] [address] [address] [place] [address] PCP - General 03/22/11 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 [facility] [employer] [facility]. provides no warranty or guarantee of the accuracy or completeness of information in this document.
== END 2023-04-21 06:49 | disposition home or self-care (01) ==
LOC: NM 06:48
PROVIDERS: Visit Provider Internal Medicine Cardiovascular Disease
DX: R06.09 Other forms of dyspnea (principal)

== ENCOUNTER 2023-04-21 06:57 | Outpatient (OUT) | payer MEDICARE, OTHER, SELFPAY ==
--- OUTSIDE RECORDS SUMMARY | 2023-04-21 07:00 | XMS_ITS | CCD ---
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 Name Role Phone ONEIL WILLIAMSON Unavailable Unavailable [...] Unavailable Molina, Dipakkumar P Primary Care Provider [phone] Phil Molina MD Primary Care Provider Phil [...] Drug Class(es) Dates Sig (Normalized) Sig (Original) [id number] 200 actuat albuterol 0.09 mg/actuat metered dose [...] hyperglycemia, without long-term current use of insulin ([facility]) 1 Units by Does not apply route 2 times daily 1 kit 0 08/26/2022 Active Start: 03-31-2018 Blood Glucose Monitoring Suppl w/Device KIT Indications: Diabetes mellitus due to underlying condition with hyperglycemia, without long-term current use of insulin ([facility]) 1 Units by Does not apply route [...] complication, with long-term current use of insulin ([facility]) Inject 30 Units into the skin nightly 5 pen 3 08/28/2021 Active Start: 06-25-2021 insulin detemi r (LEVEMIR FLEXTOUCH) 100 UNIT/ML injection pen Indications: Type 2 diabetes mellitus without complication, without long-term current use of insulin ([facility]) Inject 20 Units into the skin nightly [...] 01-12-2019 morphine (PF) injection 1 mg nystatin 569240 unt/ml / triamcinolone acetonide 1 mg/ml topical cream (6 sources) Polyene Antifungal, Corticosteroid Start: 11-17-2016 nystatin-triamcin olone (MYCOLOG II) 466236-8.1 UNIT/GM-% cream Apply topically 2 times daily [...] / UNK(Unknown) Onset: 10-12-2016 Unclassified (1 source) halfway (current) use of oral hypoglycemic drugs; 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 [facility] EXAMINATION: CT OF THE [...] Tissues/Bones: No acute bony abnormalities are noted. [facility] Sukhwinder Man MD - 04/02/2023 EXAMINATION: [...] are noted. IMPRESSION: No acute cardiopulmonary process. [facility] CT Chest W contrast IVOrdere d By: Sukhwinder Man on 04-02-2023 [facility] Work Phone: CBC with Auto Differentialon 03-31-2023 Basophils (Bld) [#/Vol] 0.14 10*3/uL [facility] Basophils/100 WBC (Bld) 1 % 0 - 2 % [facility] Eosinophils (Bld) [#/Vol] 0.65 10*3/uL High [facility] Eosinophils/100 WBC (Bld) 6 % High 1 - 4 % [facility] Erythrocyte distribution width (RBC) [Ratio] 13.2 % 11.8 - 14.4 % [facility] Hematocrit (Bld) [Volume fraction] 40.0 % Low 40.7 - 50.3 % [facility] Hemoglobin (Bld) [Mass/Vol] 12.9 g/dL Low 13.0 - 17.0 g/dL [facility] Immature granulocytes (Bld) [#/Vol] 0.08 10*3/uL [facility] Immature granulocytes/100 WBC (Bld) 1 % High 0 [facility] Interpretation and review of laboratory results Abnormal [facility] Lymphocytes/100 WBC (Bld) 23 % Low 24 - 43 % [facility] Lymphocytes/100 WBC (Bld) 2.37 % [facility] MCH (RBC) [Entitic mass] 28.9 pg 25.2 - 33.5 pg [facility] MCHC (RBC) [Mass/Vol] 32.3 g/dL 28.4 - 34.8 g/dL [facility] MCV (RBC) [Entitic vol] 89.7 fL 82.6 - 102.9 fL [facility] Monocytes/100 WBC (Bld) 8 % 3 - 12 % [facility] Monocytes/100 WBC (Bld) 0.81 % [facility] Neutrophils/100 WBC (Bld) 61 % 36 - 65 % [facility] Nucleated RBC/100 WBC (Bld) [Ratio] 0.0 % 0.0 per 100 WBC [facility] Platelet mean volume (Bld) [Entitic vol] 8.8 fL 8.1 - 13.5 fL [facility] Platelets (Bld) [#/Vol] 440 10*3/uL [facility] RBC (Bld) [#/Vol] 4.46 10*6/uL 4.21 - 5.7 7 m/uL [facility] Segmented neutrophils/100 WBC (Bld) 6.41 % [facility] WBC other (Bld) [#/Vol] 10.5 [facility] CBC with Diffon 03-31-2023 Abs. Basophil 0.14 k/uL Normal 0.00-0.20 [facility] Comment on above: Performed By: #### U RNMAB #### [facility] [address] [place] [address] Spinner Operator: Dexter Madera MD Abs.Imm.Granulocyt e 0.08 k/uL Normal 0.00-0.30 [facility] Comment on above: Performed By: #### U RNMAB #### [facility] [address] [place], [place] [phone] Spinner Operator: Dexter Madera MD Abs.Neutrophil (Seg) 6.41 k/uL Normal 1.50-8.10 [facility] Comment on above: Performed By: #### U RNMAB #### [facility] [address] [place], [place] [phone] Spinner Operator: Dexter Madera MD Basophils/100 WBC (Bld) 1 % Normal 0-2 [facility] Comment on above: Performed By: #### U RNMAB #### [address] [address] Spinner Operator: Dexter Madera MD Eosinophils (Bld) [#/Vol] 0.65 10*3/uL High 0.00-0.44 [facility] Comment on above: Performed By: #### U RNMAB #### [address] [address] Spinner Operator: Dexter Madera MD Eosinophils/100 WBC (Bld) 6 % High 1-4 [facility] Comment on above: Performed By: #### U RNMAB #### [address] [address] Spinner Operator: Dexter Madera MD Erythrocyte distribution width (RBC) [Ratio] 13.2 % Normal 11.8-14.4 [facility] Comment on above: Performed By: #### U RNMAB #### [address] [address] Spinner Operator: Dexter Madera MD Hematocrit (Bld) [Volume fraction] 40.0 % Low 40.7-50.3 [facility] Comment on above: Performed By: #### U RNMAB #### [address] [address] Spinner Operator: Dexter Madera MD Hemoglobin (Bld) [Mass/Vol] 12.9 g/dL Low 13.0-17.0 [facility] Comment on above: Performed By: #### U RNMAB #### [address] [address] Spinner Operator: Dexter Madera MD Immature granulocytes/100 WBC (Bld) 1 % High 0 [facility] Comment on above: Performed By: #### U RNMAB #### [address] [address] Spinner Operator: Dexter Madera MD Lymphocytes (Bld) [#/Vol] 2.37 10*3/uL Normal 1.10-3.70 [facility] Comment on above: Performed By: #### U RNMAB #### [address] [address] Spinner Operator: Dexter Madera MD Lymphocytes/100 WBC (Bld) 23 % Low 24-43 [facility] Comment on above: Performed By: #### U RNMAB #### [place] [address] Spinner Operator: Dexter Madera MD MCH (RBC) [Entitic mass] 28.9 pg Normal 25.2-33.5 [facility] Comment on above: Performed By: #### U RNMAB #### [place] [address] Spinner Operator: Dexter Madera MD MCHC (RBC) [Mass/Vol] 32.3 g/dL Normal 28.4-34.8 [facility] Comment on above: Performed By: #### U RNMAB #### [place] [address] Spinner Operator: Dexter Madera MD MCV (RBC) [Entitic vol] 89.7 fL Normal 82.6-102.9 [facility] Comment on above: Performed By: #### U RNMAB #### [place] [address] Spinner Operator: Dexter Madera MD Monocytes (Bld) [#/Vol] 0.81 10*3/uL Normal 0.10-1.20 [facility] Comment on above: Performed By: #### U RNMAB #### [address] [address] Spinner Operator: Dexter Madera MD Monocytes/100 WBC (Bld) 8 % Normal 3-12 [facility] Comment on above: Performed By: #### U RNMAB #### [address] [place] [address] Spinner Operator: Dexter Madera MD Neutrophil (Seg) 61 % Normal 36-65 [facility] Comment on above: Performed By: #### U RNMAB #### [address] [address] Spinner Operator: Dexter Madera MD NRBC Automated 0.0 per 100 WBC Normal 0.0 [facility] Comment on above: Performed By: #### U RNMAB #### [address] [address] Spinner Operator: Dexter Madera MD Platelet mean volume (Bld) [Entitic vol] 8.8 fL Normal 8.1-13.5 [facility] Comment on above: Performed By: #### U RNMAB #### [address] [address] Spinner Operator: Dexter Madera MD Platelets (Bld) [#/Vol] 440 10*3/uL Normal 138-453 [facility] Comment on above: Performed By: #### U RNMAB #### [address] [address] Spinner Operator: Dexter Madera MD RBC (Bld) [#/Vol] 4.46 10*6/uL Normal 4.21-5.77 [facility] Comment on above: Performed By: #### U RNMAB #### [address] [address] Spinner Operator: Dexter Madera MD WBC (Bld) [#/Vol] 10.5 10*3/uL Normal 3.5-11.3 [facility] Comment on above: Performed By: #### U RNMAB #### [address] [address] Spinner Operator: Dexter Madera MD CT Chest W contrast Eboni Radiology Study observation (narrative) LYNN MANCIA [facility] Metabolic Profon 2023 Albumin [Mass/Vol] 4.2 g/dL Normal 3.5-5.2 [facility] Comment on above: Performed By: #### U RNMAB #### [address] [address] Spinner Operator: Dexter Madera MD Albumin/Glob Ratio 1.3 Normal 1.0-2.5 [facility] Comment on above: Performed By: #### U RNMAB #### [address] [address] Spinner Operator: Dexter Madera MD Alkaline Phos 71 U/L Normal 40-129 [facility] Comment on above: Performed By: #### U RNMAB #### [address] [address] Spinner Operator: Dexter Madera MD ALT [Catalytic activity/Vol] 27 U/L Normal 5-41 [facility] Comment on above: Performed By: #### U RNMAB #### [address] [address] Spinner Operator: Dexter Madera MD Anion gap [Moles/Vol] 7 mmol/L Low 9-17 [facility] Comment on above: Performed By: #### U RNMAB #### [address] [address] Spinner Operator: Dexter Madera MD AST [Catalytic activity/Vol] 21 U/L Normal <40 [facility] Comment on above: Performed By: #### U RNMAB #### [address] [address] Spinner Operator: Dexter Madera MD Bilirubin [Mass/Vol] 0.3 mg/dL Normal 0.3-1.2 [facility] Comment on above: Performed By: #### U RNMAB #### [facility] [address] [place] [address] Spinner Operator: Dexter Madera MD BUN/CRE Ratio 20 Normal 9-20 [facility] Comment on above: Performed By: #### U RNMAB #### [address] [place] [address] Spinner Operator: Dexter Madera MD Calcium [Mass/Vol] 9.8 mg/dL Normal 8.6-10.4 [facility] Comment on above: Performed By: #### U RNMAB #### [address] [address] Spinner Operator: Dexter Madera MD Chloride [Moles/Vol] 102 mmol/L Normal 98-107 [facility] Comment on above: Performed By: #### U RNMAB #### [address] [address] Spinner Operator: Dexter Madera MD CO2 [Moles/Vol] 31 mmol/L Normal 20-31 [facility] Comment on above: Performed By: #### U RNMAB #### [address] [address] Spinner Operator: Dexter Madera MD Creatinine [Mass/Vol] 0.7 mg/dL Normal 0.7-1.2 [facility] Comment on above: Performed By: #### U RNMAB #### [address] [address] Spinner Operator: Dexter Madera MD GFR/1.73 sq M.predicted among non-blacks MDRD (S/P/Bld) [Vol rate/Area] mL/min/{1.73_m2} Normal >60 [facility] Comment on above: Result Comment: These [...] secretion. Performed By: #### U RNMAB #### [facility] [address] [place] [address] Spinner Operator: Dexter Madera MD Glucose [Mass/Vol] 147 mg/dL High 70-99 [facility] Comment on above: Performed By: #### U RNMAB #### [facility] [address] [place] [address] Spinner Operator: Dexter Madera MD Potassium [Moles/Vol] 4.1 mmol/L Normal 3.7-5.3 [facility] Comment on above: Performed By: #### U RNMAB #### [facility] [address] [place] [address] Spinner Operator: Dexter Madera MD Protein [Mass/Vol] 7.5 g/dL Normal 6.4-8.3 [facility] Comment on above: Performed By: #### U RNMAB #### [facility] [address] [place] [address] Spinner Operator: Dexter Madera MD Sodium [Moles/Vol] 140 mmol/L Normal 135-144 [facility] Comment on above: Performed By: #### U RNMAB #### [facility] [address] [place] [address] Spinner Operator: Dexter Madera MD Urea nitrogen [Mass/Vol] 14 mg/dL Normal 8-23 [facility] Comment on above: Performed By: #### U RNMAB #### [facility] [address] [place] [address] Spinner Operator: Dexter Madera MD Comprehensive Metabolic Pane [facility] 03-31-2023 Albumin [Mass/Vol] 4.2 g/dL 3.5 - 5.2 g/dL [facility] Albumin/Globulin [Mass ratio] 1.3 {ratio} 1.0 - 2.5 [facility] ALP [Catalytic activity/Vol] 71 U/L 40 - 129 U/L [facility] ALT [Catalytic activity/Vol] 27 U/L 5 - 41 U/L [facility] Anion gap [Moles/Vol] 7 mmol/L Low 9 - 17 mmol/L [facility] AST [Catalytic activity/Vol] 21 U/L NINF - 40 U/L [facility] Bilirubin [Mass/Vol] 0.3 mg/dL 0.3 - 1.2 mg/dL [facility] Calcium [Mass/Vol] 9.8 mg/dL 8.6 - 10. 4 mg/dL [facility] Chloride [Moles/Vol] 102 mmol/L 98 - 107 mmol/L [facility] CO2 [Moles/Vol] 31 mmol/L 20 - 31 mmol/L [facility] Creatinine [Mass/Vol] 0.7 mg/dL 0.7 - 1.2 mg/dL [facility] GFR/1.73 sq M.predicted MDRD (S/P/Bld) [Vol rate/Area] - PINF [facility] Comment on above: These results are not [...] 147 mg/dL High 70 - 99 mg/dL [facility] Interpretation and review of laboratory results Abnormal [facility] Potassium [Moles/Vol] 4.1 mmol/L 3.7 - 5.3 mmol/L [facility] Protein [Mass/Vol] 7.5 g/dL 6.4 - 8.3 g/dL [facility] Sodium [Moles/Vol] 140 mmol/L 135 - 144 mmol/L [facility] Urea nitrogen [Mass/Vol] 14 mg/dL 8 - 23 mg/dL [facility] Urea nitrogen/Creatinin e [Mass ratio] 20 mg/mg 9 - 20 [facility] Lipid Panelon 03-31-2023 Cholesterol [Mass/Vol] 141 mg/dL NINF - 200 mg/dL [facility] Comment on above: Cholesterol Guidelines: <200 Desirable 200-240 Borderline >240 Undesirable Cholesterol in HDL [Mass/Vol] 34 mg/dL Low 40 - PINF mg/dL [facility] Comment on above: HDL Guidelines: <40 Undesirable 40-59 Borderline >59 Desirable Cholesterol in LDL [Mass/Vol] 77 mg/dL 0 - 130 mg/dL [facility] Comment on above: LDL Guidelines: <100 Desirable 100-129 Near to/above Desirable 130-159 Borderline >159 Undesirable Direct (measured) LDL and calculated LDL are not interchangeable tests. Cholesterol.total/ Cholesterol in HDL [Mass ratio] 4.1 {ratio} NINF - 5 [facility] Interpretation and review of laboratory results Abnormal [facility] Triglyceride [Mass/Vol] 148 mg/dL NINF - 150 mg/dL [facility] Comment on above: Triglyceride Guidelines: <150 Desirable 150-199 Borderline 200-499 High >499 Very high Based on AHA Guidelines for fasting triglyceride, November 2011. [facility] Lipid Profileon 03-31-2023 Cholesterol [Mass/Vol] 141 mg/dL Normal <200 [facility] Comment on above: Result Comment: Cholesterol Guidelines: <200 Desirable 200-240 Borderline >240 Undesirable Performed By: #### L IPR #### [facility] [phone] Spinner Operator: Dexter Madera MD Cholesterol in HDL [Mass/Vol] 34 mg/dL Low >40 [facility] Comment on above: Result Comment: HDL Guidelines: <40 Undesirable 40-59 Borderline >59 Desirable Performed By: #### L IPR #### [address] [facility] [address] [place], [place] [phone] Spinner Operator: Dexter Madera MD Cholesterol in LDL [Mass/Vol] 77 mg/dL Normal 0-130 [facility] Comment on above: Result Comment: LDL Guidelines: <100 Desirable 100-129 Near to/above Desirable 130-159 Borderline >159 Undesirable Direct (measured) LDL and calculated LDL are not interchangeable tests. Performed By: #### L IPR #### [address] [address] Spinner Operator: Dexter Madera MD Cholesterol.total/ Cholesterol in HDL [Mass ratio] 4.1 {ratio} Normal <5 [facility] Comment on above: Performed By: #### L IPR #### [address] [address] Spinner Operator: Dexter Madera MD Triglyceride [Mass/Vol] 148 mg/dL Normal <150 [facility] Comment on above: Result Comment: Triglyceride Guidelines: <150 Desirable 150-199 Borderline 200-499 High >499 Very high Based on AHA Guidelines for fasting triglyceride, November 2011. Performed By: #### L IPR #### [address] [address] Spinner Operator: Dexter Madera MD Hemoglobin A1Con 02-10-2023 Glucose [Mass/Vol] 186 mg/dL Normal [facility] Comment on above: Result Comment: The ADA and AACC recommend providing the estimated average glucose result to permit better patient understanding of their HBA1c result. Performed By: #### G LYHGB #### [address] [address] Spinner Operator: Dexter Madera MD HbA1c (Bld) [Mass fraction] 8.1 % High 4.0-6.0 [facility] Comment on above: Performed By: #### G LYHGB #### [address] [address] Spinner Operator: Dexter Madera MD XR HAND RIGHT (MIN [...] Dhaval Lopez MD 12/23/22 Final result Normal [facility] Hemoglobin A1Con 10-28-2022 Glucose [Mass/Vol] 217 mg/dL Normal [facility] Comment on above: Result Comment: The ADA and AACC recommend providing the estimated average glucose result to permit better patient understanding of their HBA1c result. Performed By: #### C P, CDP #### [facility] [address] [place] [address] [address] [place] [phone] Spinner Operator: Barak Garcia MD #### GLYHGB #### [place] [phone] Spinner Operator: Dexter Madera MD HbA1c (Bld) [Mass fraction] 9.2 % High 4.0-6.0 [facility] Comment on above: Performed By: #### C P, CDP #### [address] [place] [phone] Spinner Operator: Barak Garcia MD #### GLYHGB #### [place] [phone] Spinner Operator: Dexter Madera MD CBC with Diffon 10-27-2022 Abs. Basophil 0.12 k/uL Normal 0.00-0.20 [facility] Comment on above: Performed By: #### C P, CDP #### [facility] [address] [place] [address] [place] [address] Spinner Operator: Barak Garcia MD #### GLYHGB #### [address] [phone] Spinner Operator: Dexter Madera MD Abs.Imm.Granulocyt e 0.03 k/uL Normal 0.00-0.30 [facility] Comment on above: Performed By: #### C P, CDP #### [address] [place] [phone] Spinner Operator: Barak Garcia MD #### GLYHGB #### [place] [address] Spinner Operator: Dexter Madera MD Abs.Neutrophil (Seg) 7.42 k/uL Normal 1.50-8.10 [facility] Comment on above: Performed By: #### C P, CDP #### [address] [place] [phone] ( Spinner Operator: Barak Garcia MD #### GLYHGB #### [place] [address] Spinner Operator: Dexter Madera MD Basophils/100 WBC (Bld) 1 % Normal 0-2 [facility] Comment on above: Performed By: #### C P, CDP #### [address] [place] [phone] Spinner Operator: Barak Garcia MD #### GLYHGB #### [place] [address] Spinner Operator: Dexter Madera MD Eosinophils (Bld) [#/Vol] 0.66 10*3/uL High 0.00-0.44 [facility] Comment on above: Performed By: #### C P, CDP #### [address] [place] [phone] Spinner Operator: Barak Garcia MD #### GLYHGB #### [address] [address] Spinner Operator: Dexter Madera MD Eosinophils/100 WBC (Bld) 6 % High 1-4 [facility] Comment on above: Performed By: #### C P, CDP #### [facility] [address] [place], [place] [phone] Spinner Operator: Barak Garcia MD #### GLYHGB #### [address] [phone] Spinner Operator: Dexter Madera MD Erythrocyte distribution width (RBC) [Ratio] 13.6 % Normal 11.8-14.4 [facility] Comment on above: Performed By: #### C P, CDP #### [facility] [address] [place] [phone] Spinner Operator: Barak Garcia MD #### GLYHGB #### [address] [phone] Spinner Operator: Dexter Madera MD Hematocrit (Bld) [Volume fraction] 40.6 % Low 40.7-50.3 [facility] Comment on above: Performed By: #### C P, CDP #### [facility] [address] [place], [place] [phone] Spinner Operator: Barak Garcia MD #### GLYHGB #### [address] [phone] Spinner Operator: Dexter Madera MD Hemoglobin (Bld) [Mass/Vol] 13.6 g/dL Normal 13.0-17.0 [facility] Comment on above: Performed By: #### C P, CDP #### [facility] [address] [place], [place] [phone] Spinner Operator: Barak Garcia MD #### GLYHGB #### [address] [phone] Spinner Operator: Dexter Madera MD Immature granulocytes/100 WBC (Bld) 0 % Normal 0 [facility] Comment on above: Performed By: #### C P, CDP #### [facility] [address] [place], [place] [phone] Spinner Operator: Barak Garcia MD #### GLYHGB #### [address] [phone] Spinner Operator: Dexter Madera MD Lymphocytes (Bld) [#/Vol] 2.09 10*3/uL Normal 1.10-3.70 [facility] Comment on above: Performed By: #### C P, CDP #### [facility] [address] [place], [place] [phone] Spinner Operator: Barak Garcia MD #### GLYHGB #### [address] [phone] Spinner Operator: Dexter Madera MD Lymphocytes/100 WBC (Bld) 19 % Low 24-43 [facility] Comment on above: Performed By: #### C P, CDP #### [facility] [address] [place], [place] [phone] Spinner Operator: Barak Garcia MD #### GLYHGB #### [address] [place] [address] Spinner Operator: Dexter Madera MD MCH (RBC) [Entitic mass] 29.4 pg Normal 25.2-33.5 [facility] Comment on above: Performed By: #### C P, CDP #### [facility] [address] [place], [place] [phone] Spinner Operator: Barak Garcia MD #### GLYHGB #### [address] [address] Spinner Operator: Dexter Madera MD MCHC (RBC) [Mass/Vol] 33.5 g/dL Normal 28.4-34.8 [facility] Comment on above: Performed By: #### C P, CDP #### [facility] [address] [place], [place] [phone] Spinner Operator: Barak Garcia MD #### GLYHGB #### [address] [phone] Spinner Operator: Dexter Madera MD MCV (RBC) [Entitic vol] 87.9 fL Normal 82.6-102.9 [facility] Comment on above: Performed By: #### C P, CDP #### [facility] [address] [place] [address] Dr. [place], [place] [phone] Spinner Operator: Barak Garcia MD #### GLYHGB #### [address] [address] Spinner Operator: Dexter Madera MD Monocytes (Bld) [#/Vol] 0.86 10*3/uL Normal 0.10-1.20 [facility] Comment on above: Performed By: #### C P, CDP #### [address] [place], [place] [phone] Spinner Operator: Barak Garcia MD #### GLYHGB #### [address] [phone] Spinner Operator: Dexter Madera MD Monocytes/100 WBC (Bld) 8 % Normal 3-12 [facility] Comment on above: Performed By: #### C P, CDP #### [address] [place], [place] [phone] Spinner Operator: Barak Garcia MD #### GLYHGB #### [address] [address] Spinner Operator: Dexter Madera MD Neutrophil (Seg) 66 % High 36-65 [facility] Comment on above: Performed By: #### C P, CDP #### [facility] [address] [place] [address] Dr. [place] [phone] Spinner Operator: Barak Garcia MD #### GLYHGB #### [address] [phone] Spinner Operator: Dexter Madera MD NRBC Automated 0.0 per 100 WBC Normal 0.0 [facility] Comment on above: Performed By: #### C P, CDP #### [address] [place] [phone] Spinner Operator: Barak Garcia MD #### GLYHGB #### [place] [address] Spinner Operator: Dexter Madera MD Platelet mean volume (Bld) [Entitic vol] 9.4 fL Normal 8.1-13.5 [facility] Comment on above: Performed By: #### C P, CDP #### [address] [place] [phone] Spinner Operator: Barak Garcia MD #### GLYHGB #### [place] [address] Spinner Operator: Dexter Madera MD Platelets (Bld) [#/Vol] 389 10*3/uL Normal 138-453 [facility] Comment on above: Performed By: #### C P, CDP #### [address] [place] [phone] Spinner Operator: Barak Garcia MD #### GLYHGB #### [address] [phone] Spinner Operator: Dexter Madera MD RBC (Bld) [#/Vol] 4.62 10*6/uL Normal 4.21-5.77 [facility] Comment on above: Performed By: #### C P, CDP #### [address] [place] [phone] Spinner Operator: Barak Garcia MD #### GLYHGB #### [place] [address] [place] [address] Spinner Operator: Dexter Madera MD WBC (Bld) [#/Vol] 11.2 10*3/uL Normal 3.5-11.3 [facility] Comment on above: Performed By: #### C P, CDP #### [facility] [address] [place] [address] [place], [place] [phone] Spinner Operator: Barak Garcia MD #### GLYHGB #### [address] [address] Spinner Operator: Dexter Madera MD Comp Metabolic Profon 2022 Albumin [Mass/Vol] 4.5 g/dL Normal 3.5-5.2 [facility] Comment on above: Performed By: #### C P, CDP #### [address] [place] [phone] Spinner Operator: Barak Garcia MD #### GLYHGB #### [address] [address] Spinner Operator: Dexter Madera MD Albumin/Glob Ratio 1.5 Normal 1.0-2.5 [facility] Comment on above: Performed By: #### C P, CDP #### [facility] [address] [place] [address] Dr. [place] [phone] Spinner Operator: Barak Garcia MD #### GLYHGB #### [place] [address] [place] [address] Spinner Operator: Dexter Madera MD Alkaline Phos 71 U/L Normal 40-129 [facility] Comment on above: Performed By: #### C P, CDP #### [facility] [address] [place] [address] [place] [address] Spinner Operator: Barak Garcia MD #### GLYHGB #### [facility] [address] [place] [address] Spinner Operator: Dexter Madera MD ALT [Catalytic activity/Vol] 30 U/L Normal 5-41 [facility] Comment on above: Performed By: #### C P, CDP #### [facility] [address] [place], [place] [phone] Spinner Operator: Barak Garcia MD #### GLYHGB #### [facility] [address] [place] [address] Spinner Operator: Dexter Madera MD Anion gap [Moles/Vol] 12 mmol/L Normal 9-17 [facility] Comment on above: Performed By: #### C P, CDP #### [facility] [address] [place], [place] [phone] Spinner Operator: Barak Garcia MD #### GLYHGB #### [address] [address] Spinner Operator: Dexter Madera MD AST [Catalytic activity/Vol] 22 U/L Normal <40 [facility] Comment on above: Performed By: #### C P, CDP #### [facility] [address] [place], [place] [phone] Spinner Operator: Barak Garcia MD #### GLYHGB #### [facility] [address] [place] [address] Spinner Operator: Dexter Madera MD Bilirubin [Mass/Vol] 0.3 mg/dL Normal 0.3-1.2 [facility] Comment on above: Performed By: #### C P, CDP #### [facility] [address] [place], [place] [phone] Spinner Operator: Barak Garcia MD #### GLYHGB #### [address] [address] Spinner Operator: Dexter Madera MD BUN/CRE Ratio 23 High 9-20 [facility] Comment on above: Performed By: #### C P, CDP #### [facility] [address] [place], [place] [phone] Spinner Operator: Barak Garcia MD #### GLYHGB #### [address] [address] Spinner Operator: Dexter Madera MD Calcium [Mass/Vol] 9.9 mg/dL Normal 8.6-10.4 [facility] Comment on above: Performed By: #### C P, CDP #### [facility] [address] [place], [place] [phone] Spinner Operator: Barak Garcia MD #### GLYHGB #### [address] [address] Spinner Operator: Dexter Madera MD Chloride [Moles/Vol] 103 mmol/L Normal 98-107 [facility] Comment on above: Performed By: #### C P, CDP #### [facility] [address] [place] [address] Dr[place], [place] [phone] Spinner Operator: Barak Garcia MD #### GLYHGB #### [address] [address] Spinner Operator: Dexter Madera MD CO2 [Moles/Vol] 26 mmol/L Normal 20-31 [facility] Comment on above: Performed By: #### C P, CDP #### [facility] [address] [place], [place] [phone] Spinner Operator: Barak Garcia MD #### GLYHGB #### [address] [address] Spinner Operator: Dexter Madera MD Creatinine [Mass/Vol] 0.8 mg/dL Normal 0.7-1.2 [facility] Comment on above: Performed By: #### C P, CDP #### [facility] [address] [place] [address] Spinner Operator: Barak Garcia MD #### GLYHGB #### [address] [phone] Spinner Operator: Dexter Madera MD GFR/1.73 sq M.predicted among non-blacks MDRD (S/P/Bld) [Vol rate/Area] mL/min/{1.73_m2} Normal >60 [facility] Comment on above: Result Comment: These [...] Performed By: #### C P, CDP #### [address] [place], [place] [phone] Spinner Operator: Barak Garcia MD #### GLYHGB #### [place] [address] [place], [place] [phone] Spinner Operator: Dexter Madera MD Glucose [Mass/Vol] 217 mg/dL High 70-99 [facility] Comment on above: Performed By: #### C P, CDP #### [facility] [address] [place], [place] [phone] Spinner Operator: Barak Garcia MD #### GLYHGB #### [address] [address] Spinner Operator: Dexter Madera MD Potassium [Moles/Vol] 4.2 mmol/L Normal 3.7-5.3 [facility] Comment on above: Performed By: #### C P, CDP #### [facility] [address] [place], [place] [phone] Spinner Operator: Barak Garcia MD #### GLYHGB #### [address] [phone] Spinner Operator: Dexter Madera MD Protein [Mass/Vol] 7.5 g/dL Normal 6.4-8.3 [facility] Comment on above: Performed By: #### C P, CDP #### [facility] [address] [place], [place] [phone] Spinner Operator: Barak Garcia MD #### GLYHGB #### [facility] [address] [place] [address] [phone] Spinner Operator: Dexter Madera MD Sodium [Moles/Vol] 141 mmol/L Normal 135-144 [facility] Comment on above: Performed By: #### C P, CDP #### [facility] [address] [place] [address] [place], [place] [phone] Spinner Operator: Barak Garcia MD #### GLYHGB #### [address] [address] Spinner Operator: Dexter Madera MD Urea nitrogen [Mass/Vol] 18 mg/dL Normal 8-23 [facility] Comment on above: Performed By: #### C P, CDP #### [facility] [address] [place] [address] [place], [place] [phone] Spinner Operator: Barak Garcia MD #### GLYHGB #### [address] [address] Spinner Operator: Dexter Madera MD Lipid Profileon 10-27-2022 Cholesterol [Mass/Vol] 151 mg/dL Normal <200 [facility] Comment on above: Result Comment: Cholesterol Guidelines: <200 Desirable 200-240 Borderline >240 Undesirable Performed By: #### U RNMAB #### [facility] [place] [address] Spinner Operator: Dexter Madera MD Cholesterol in HDL [Mass/Vol] 35 mg/dL Low >40 [facility] Comment on above: Result Comment: HDL Guidelines: <40 Undesirable 40-59 Borderline >59 Desirable Performed By: #### U RNMAB #### [address] [address] Spinner Operator: Dexter Madera MD Cholesterol in LDL [Mass/Vol] 87 mg/dL Normal 0-130 [facility] Comment on above: Result Comment: LDL Guidelines: <100 Desirable 100-129 Near to/above Desirable 130-159 Borderline >159 Undesirable Direct (measured) LDL and calculated LDL are not interchangeable tests. Performed By: #### U RNMAB #### [facility] [address] [place] [address] Spinner Operator: Dexter Madera MD Cholesterol.total/ Cholesterol in HDL [Mass ratio] 4.3 {ratio} Normal <5 [facility] Comment on above: Performed By: #### U RNMAB #### [facility] [address] [place] [address] Spinner Operator: Dexter Madera MD Triglyceride [Mass/Vol] 143 mg/dL Normal <150 [facility] Comment on above: Result Comment: Triglyceride Guidelines: <150 Desirable 150-199 Borderline 200-499 High >499 Very high Based on AHA Guidelines for fasting triglyceride, November 2011. Performed By: #### U RNMAB #### [facility] [address] [place] [address] Spinner Operator: Dexter Madera MD Microalb.,Random Uron 2022 Creatinine [Mass/Vol] 116.4 mg/dL Normal 39.0-259.0 [facility] Comment on above: Performed By: #### U RNMAB #### [facility] [address] [place] [address] Spinner Operator: Dexter Madera MD Microalb/Creat Ratio 60 mcg/mg creat High <17 [facility] Comment on above: Performed By: #### U RNMAB #### [facility] [place], [place] 7740008 Spinner Operator: Dexter Madera MD Microalbumin conc. 70 mg/L High <21 [facility] Comment on above: Performed By: #### U RNMAB #### [facility] [address] [place] [address] [phone] Spinner Operator: Dexter Madera MD Surgical Pathologyon 023 Surgical Pathology (NOTE) Path Number: [id number] -- Diagnosis -- A. ABNORMAL SKIN GROWTH, [...] Microscopic Description Microscopic examination performed. Processing Lab: [address] [id number] Interpretation Performed at [address] [phone] SURGICAL PATHOLOGY CONSULTATION Patient Name: MARY AKERSMIKAEL Sanders Med Rec: [id number] [facility] [employer] [facility] [employer] ANATOMIC PATHOLOGY [address] [place] [phone] Normal [facility] Lipid Profileon 04-30-2022 Cholesterol [Mass/Vol] 167 mg/dL Normal <200 [facility] Comment on above: Result Comment: Cholesterol Guidelines: <200 Desirable 200-240 Borderline >240 Undesirable Performed By: #### U RNMAB #### [address] [phone] Spinner Operator: Dexter Madera MD Cholesterol in HDL [Mass/Vol] 39 mg/dL Low >40 [facility] Comment on above: Result Comment: HDL Guidelines: <40 Undesirable 40-59 Borderline >59 Desirable Performed By: #### U RNMAB #### [facility] [address] [place] [address] [phone] Spinner Operator: Dexter Madera MD Cholesterol in LDL [Mass/Vol] 97 mg/dL Normal 0-130 [facility] Comment on above: Result Comment: LDL Guidelines: <100 Desirable 100-129 Near to/above Desirable 130-159 Borderline >159 Undesirable Direct (measured) LDL and calculated LDL are not interchangeable tests. Performed By: #### U RNMAB #### [facility] [address] [place] [address] [phone] Spinner Operator: Dexter Madera MD Cholesterol.total/ Cholesterol in HDL [Mass ratio] 4.3 {ratio} Normal <5 [facility] Comment on above: Performed By: #### U RNMAB #### [facility] [address] [place] [address] [phone] Spinner Operator: Dexter Madera MD Triglyceride [Mass/Vol] 156 mg/dL High <150 [facility] Comment on above: Result Comment: Triglyceride Guidelines: <150 Desirable 150-199 Borderline 200-499 High >499 Very high Based on AHA Guidelines for fasting triglyceride, November 2011. Performed By: #### U RNMAB #### [facility] [address] [place] [address] Spinner Operator: Dexter Madera MD CBC with Auto Differentialon 04-29-2022 Absolute Eos # 0.45 High [facility] [employer] Absolute Immature Granulocyte 0.05 [facility] [employer] Absolute Lymph # 1.93 [facility] [employer] Absolute Alger # 0.85 [facility] NPR Basophils (Bld) [#/Vol] 0.13 10*3/uL [facility] Basophils/100 WBC (Bld) 1 % 0 - 2 % [facility] Eosinophils/100 WBC (Bld) 4 % 1 - 4 % [facility] Hematocrit (Bld) [Volume fraction] 42.9 % 40.7 - 50.3 % [facility] Hemoglobin (Bld) [Mass/Vol] 14.6 g/dL 13.0 - 17.0 g/dL [facility] Immature granulocytes/100 WBC (Bld) 1 % High 0 [facility] Interpretation and review of laboratory results Abnormal [facility] Lymphocytes/100 WBC (Bld) 19 % Low 24 - 43 % [facility] MCH (RBC) [Entitic mass] 29.9 pg 25.2 - 33.5 pg [facility] MCHC (RBC) [Mass/Vol] 34.0 g/dL 28.4 - 34.8 g/dL [facility] MCV (RBC) [Entitic vol] 87.9 fL 82.6 - 102.9 fL [facility] Monocytes/100 WBC (Bld) 8 % 3 - 12 % [facility] NRBC Automated 0.0 0.0 per 100 WBC [facility] Platelet distribution width (Bld) [Ratio] 13.7 % 11.8 - 14.4 % [facility] Platelet mean volume (Bld) [Entitic vol] 9.4 fL 8.1 - 13.5 fL [facility] Platelets (Bld) [#/Vol] 358 10*3/uL [facility] RBC (Bld) [#/Vol] 4.88 10*6/uL 4.21 - 5.7 7 m/uL [facility] Segmented neutrophils/100 WBC (Bld) 67 % High 36 - 65 % [facility] Segs Absolute 6.89 [facility] WBC (Bld) [#/Vol] 10.3 10*3/uL [facility] CBC with Diffon 04-29-2022 Abs. Basophil 0.13 k/uL Normal 0.00-0.20 [facility] Comment on above: Performed By: #### C P, CDP #### [facility] [address] [place] [address] [place] [address] Spinner Operator: Barak Garcia MD Abs.Imm.Granulocyt e 0.05 k/uL Normal 0.00-0.30 [facility] Comment on above: Performed By: #### C P, CDP #### [facility] [address] [place] [address] [place] [address] Spinner Operator: Barak Garcia MD Abs.Neutrophil (Seg) 6.89 k/uL Normal 1.50-8.10 [facility] Comment on above: Performed By: #### C P, CDP #### [facility] [address] [place] [address] [place] [address] Spinner Operator: Barak Garcia MD Basophils/100 WBC (Bld) 1 % Normal 0-2 [facility] Comment on above: Performed By: #### C P, CDP #### [address] [place], [place] [address] Spinner Operator: Barak Garcia MD Eosinophils (Bld) [#/Vol] 0.45 10*3/uL High 0.00-0.44 [facility] Comment on above: Performed By: #### C P, CDP #### [address] [place], [place] [address] Spinner Operator: Barak Garcia MD Eosinophils/100 WBC (Bld) 4 % Normal 1-4 [facility] Comment on above: Performed By: #### C P, CDP #### [address] [place], [place] [address] Spinner Operator: Barak Garcia MD Erythrocyte distribution width (RBC) [Ratio] 13.7 % Normal 11.8-14.4 [facility] Comment on above: Performed By: #### C P, CDP #### [address] [place], [facility]83 Spinner Operator: Barak Garcia MD Hematocrit (Bld) [Volume fraction] 42.9 % Normal 40.7-50.3 [facility] Comment on above: Performed By: #### C P, CDP #### [facility] [address] [place], [facility]83 Spinner Operator: Barak Garcia MD Hemoglobin (Bld) [Mass/Vol] 14.6 g/dL Normal 13.0-17.0 [facility] Comment on above: Performed By: #### C P, CDP #### [facility] [address] [place], [facility]83 Spinner Operator: Barak Garcia MD Immature granulocytes/100 WBC (Bld) 1 % High 0 [facility] Comment on above: Performed By: #### C P, CDP #### [facility] [address] [place], [facility]83 Spinner Operator: Barak Garcia MD Lymphocytes (Bld) [#/Vol] 1.93 10*3/uL Normal 1.10-3.70 [facility] Comment on above: Performed By: #### C P, CDP #### [address] [place], [facility]83 Spinner Operator: Barak Garcia MD Lymphocytes/100 WBC (Bld) 19 % Low 24-43 [facility] Comment on above: Performed By: #### C P, CDP #### [facility] [address] [place] [address] Dr. [place], [place] [address] Spinner Operator: Barak Garcia MD MCH (RBC) [Entitic mass] 29.9 pg Normal 25.2-33.5 [facility] Comment on above: Performed By: #### C P, CDP #### [facility] [address] [place], [facility]83 Spinner Operator: Barak Garcia MD MCHC (RBC) [Mass/Vol] 34.0 g/dL Normal 28.4-34.8 [facility] Comment on above: Performed By: #### C P, CDP #### [facility] [address] [place], [place] 1890383 Spinner Operator: Barak Garcia MD MCV (RBC) [Entitic vol] 87.9 fL Normal 82.6-102.9 [facility] Comment on above: Performed By: #### C P, CDP #### [address] [place], [place] [phone] Spinner Operator: Barak Garcia MD Monocytes (Bld) [#/Vol] 0.85 10*3/uL Normal 0.10-1.20 [facility] Comment on above: Performed By: #### C P, CDP #### [address] [place], [place] [phone] Spinner Operator: Barak Garcia MD Monocytes/100 WBC (Bld) 8 % Normal 3-12 [facility] Comment on above: Performed By: #### C P, CDP #### [address] [place], [place] [phone] Spinner Operator: Barak Garcia MD Neutrophil (Seg) 67 % High 36-65 [facility] Comment on above: Performed By: #### C P, CDP #### [address] [place], [place] [phone] Spinner Operator: Barak Garcia MD NRBC Automated 0.0 per 100 WBC Normal 0.0 [facility] Comment on above: Performed By: #### C P, CDP #### [address] [place], [place] [phone] Spinner Operator: Barak Garcia MD Platelet mean volume (Bld) [Entitic vol] 9.4 fL Normal 8.1-13.5 [facility] Comment on above: Performed By: #### C P, CDP #### [address] [place] [address] Spinner Operator: Barak Garcia MD Platelets (Bld) [#/Vol] 358 10*3/uL Normal 138-453 [facility] Comment on above: Performed By: #### C P, CDP #### [facility] [address] [place] [address] Spinner Operator: Barak Garcia MD RBC (Bld) [#/Vol] 4.88 10*6/uL Normal 4.21-5.77 [facility] Comment on above: Performed By: #### C P, CDP #### [facility] [address] [place], [place] [phone] Spinner Operator: Barak Garcia MD WBC (Bld) [#/Vol] 10.3 10*3/uL Normal 3.5-11.3 [facility] Comment on above: Performed By: #### C P, CDP #### [facility] [address] [place], [place] [phone] Spinner Operator: Barak Garcia MD Comp Metabolic Profon 2022 Albumin [Mass/Vol] 4.0 g/dL Normal 3.5-5.2 [facility] Comment on above: Performed By: #### C P, CDP #### [facility] [address] [place], [place] [phone] Spinner Operator: Barak Garcia MD Albumin/Glob Ratio 1.1 Normal 1.0-2.5 [facility] Comment on above: Performed By: #### C P, CDP #### [facility] [address] [place], [place] 9263283 Spinner Operator: Barak Garcia MD Alkaline Phos 75 U/L Normal 40-129 [facility] Comment on above: Performed By: #### C P, CDP #### [facility] [address] [place] [address] Spinner Operator: Barak Garcia MD ALT [Catalytic activity/Vol] 33 U/L Normal 5-41 [facility] Comment on above: Performed By: #### C P, CDP #### [facility] [address] [place], [place] [phone] Spinner Operator: Barak Garcia MD Anion gap [Moles/Vol] 8 mmol/L Low 9-17 [facility] Comment on above: Performed By: #### C P, CDP #### [facility] [address] [place], [place] [phone] Spinner Operator: Barak Garcia MD AST [Catalytic activity/Vol] 29 U/L Normal <40 [facility] Comment on above: Performed By: #### C P, CDP #### [facility] [address] [place], [place] [phone] Spinner Operator: Barak Garcia MD Bilirubin [Mass/Vol] 0.4 mg/dL Normal 0.3-1.2 [facility] Comment on above: Performed By: #### C P, CDP #### [facility] [address] [place], [place] [phone] Spinner Operator: Barak Garcia MD BUN/CRE Ratio 18 Normal 9-20 [facility] Comment on above: Performed By: #### C P, CDP #### [facility] [address] [place], [place] 1535483 Spinner Operator: Barak Garcia MD Calcium [Mass/Vol] 9.7 mg/dL Normal 8.6-10.4 [facility] Comment on above: Performed By: #### C P, CDP #### [facility] [address] [place], [place] 3274183 Spinner Operator: Barak Garcia MD Chloride [Moles/Vol] 100 mmol/L Normal 98-107 [facility] Comment on above: Performed By: #### C P, CDP #### [facility] [address] [place], [place] [phone] Spinner Operator: Barak Garcia MD CO2 [Moles/Vol] 30 mmol/L Normal 20-31 [facility] Comment on above: Performed By: #### C P, CDP #### [facility] [address] [place] [address] Spinner Operator: Barak Garcia MD Creatinine [Mass/Vol] 0.79 mg/dL Normal 0.70-1.20 [facility] Comment on above: Performed By: #### C P, CDP #### [facility] [address] [place] [address] Spinner Operator: Barak Garcia MD GFR/1.73 sq M.predicted among non-blacks MDRD (S/P/Bld) [Vol rate/Area] mL/min/{1.73_m2} Normal >60 [facility] Comment on above: Result Comment: These [...] Performed By: #### C P, CDP #### [address] [place] [address] Spinner Operator: Barak Garcia MD Glucose [Mass/Vol] 191 mg/dL High 70-99 [facility] Comment on above: Performed By: #### C P, CDP #### [facility] [address] [place] [address] Spinner Operator: Barak Garcia MD Potassium [Moles/Vol] 4.2 mmol/L Normal 3.7-5.3 [facility] Comment on above: Performed By: #### C P, CDP #### [address] [place] [address] Spinner Operator: Barak Garcia MD Protein [Mass/Vol] 7.5 g/dL Normal 6.4-8.3 [facility] Comment on above: Performed By: #### C P, CDP #### [facility] [address] [place] [address] Spinner Operator: Barak Garcia MD Sodium [Moles/Vol] 138 mmol/L Normal 135-144 [facility] Comment on above: Performed By: #### C P, CDP #### [facility] [address] [place] [address] Spinner Operator: Barak Garcia MD Urea nitrogen [Mass/Vol] 14 mg/dL Normal 8-23 [facility] Comment on above: Performed By: #### C P, CDP #### [facility] [address] [place] [address] Spinner Operator: Barak Garcia MD Comprehensive Metabolic Pane [facility] 04-29-2022 Albumin [Mass/Vol] 4 g/dL 3.5 - 5.2 g/dL [facility] Albumin/Globulin [Mass ratio] 1.1 {ratio} 1.0 - 2.5 [facility] ALP [Catalytic activity/Vol] 75 U/L 40 - 129 U/L [facility] ALT [Catalytic activity/Vol] 33 U/L 5 - 41 U/L [facility] Anion gap [Moles/Vol] 8 mmol/L Low 9 - 17 mmol/L [facility] AST [Catalytic activity/Vol] 29 U/L NINF - 40 U/L [facility] Bilirubin [Mass/Vol] 0.4 mg/dL 0.3 - 1.2 mg/dL [facility] Calcium [Mass/Vol] 9.7 mg/dL 8.6 - 10. 4 mg/dL [facility] Chloride [Moles/Vol] 100 mmol/L 98 - 107 mmol/L [facility] CO2 [Moles/Vol] 30 mmol/L 20 - 31 mmol/L [facility] Creatinine [Mass/Vol] 0.79 mg/dL 0.70 - 1.20 mg/dL [facility]ENTERAut[facility] Networks GFR/1.73 sq M.predicted MDRD (S/P/Bld) [Vol rate/Area] - PINF [facility] CENTERQcept Technologies [facility] Comment on above: These results are [...] 191 mg/dL High 70 - 99 mg/dL [facility]ENTERAut[facility] Networks Interpretation and review of laboratory results Abnormal [facility] CENTERTeliris NPR Potassium [Moles/Vol] 4.2 mmol/L 3.7 - 5.3 mmol/L [facility]ENTERAut[facility] Networks Protein [Mass/Vol] 7.5 g/dL 6.4 - 8.3 g/dL [facility]ERTeliris NPR Sodium [Moles/Vol] 138 mmol/L 135 - 144 mmol/L [facility]ENTERTelirisOH[facility] Urea nitrogen [Mass/Vol] 14 mg/dL 8 - 23 mg/dL [facility] [employer] NPR Urea nitrogen/Creatinin e (Bld) [Mass ratio] 18 9 - 20 [facility]ENTERTelirisDUKE REGIONAL HOSPITALTelirisOHIO[facility] Lipid Panelon 04-29-2022 Cholesterol [Mass/Vol] 167 mg/dL NINF - 200 mg/dL [facility] NPR Comment on above: Cholesterol Guidelines: <200 Desirable 200-240 Borderline >240 Undesirable Cholesterol in HDL [Mass/Vol] 39 mg/dL Low 40 - PINF mg/dL [facility] CENTERQcept Technologies [facility] Comment on above: HDL Guidelines: <40 Undesirable 40-59 Borderline >59 Desirable Cholesterol in LDL [Mass/Vol] 97 mg/dL 0 - 130 mg/dL [facility] CENTERAutonomic Networks Comment on above: LDL Guidelines: <100 Desirable 100-129 Near to/above Desirable 130-159 Borderline >159 Undesirable Direct (measured) LDL and calculated LDL are not interchangeable tests. Cholesterol.total/ Cholesterol in HDL [Mass ratio] 4.3 {ratio} NINF - 5 [facility] CENTERAutonomic Networks Interpretation and review of laboratory results Abnormal [facility]ENTEROURS [facility] Triglyceride [Mass/Vol] 156 mg/dL High NINF - 150 mg/dL [facility] Comment on above: Triglyceride Guidelines: <150 Desirable 150-199 Borderline 200-499 High >499 Very high Based on AHA Guidelines for fasting triglyceride, November 2011. [facility] TSHon 04-29-2022 TSH Qn 3.05 m[IU]/L [facility] Thyroid Stim. Horm.on 2022 Thyroid Stim. Horm. 3.05 uIU/mL Normal 0.30-5.00 [facility] Comment on above: Performed By: #### T SH #### [facility] [address] [place] [address] Spinner Operator: Barak Garcia MD Basic Metabolic Panelon 06-23 Anion gap [Moles/Vol] 10 mmol/L 9 - 17 mmol/L [facility] Calcium [Mass/Vol] 9.7 mg/dL 8.6 - 10. 4 mg/dL [facility] Chloride [Moles/Vol] 102 mmol/L 98 - 107 mmol/L [facility] CO2 [Moles/Vol] 27 mmol/L 20 - 31 mmol/L [facility] Creatinine [Mass/Vol] 0.62 mg/dL Low 0.70 - 1.20 mg/dL [facility] GFR >60 >60 mL/min [facility] GFR Non- >60 >60 mL/min [facility] Glucose [Mass/Vol] 192 mg/dL High 70 - 99 mg/dL [facility] Interpretation and review of laboratory results Abnormal [facility] Potassium [Moles/Vol] 4.0 mmol/L 3.7 - 5.3 mmol/L [facility] Sodium [Moles/Vol] 139 mmol/L 135 - 144 mmol/L [facility] Urea nitrogen (BldV) [Mass/Vol] 11 mg/dL 8 - 23 mg/dL [facility] Urea nitrogen/Creatinin e (Bld) [Mass ratio] 18 [facility] CBC with Auto Differentialon 07-21-2021 Absolute Eos # 0.42 [facility] Absolute Immature Granulocyte 0.04 [facility] Absolute Lymph # 2.29 [facility] Absolute Alger # 0.86 [facility] Basophils (Bld) [#/Vol] 0.11 10*3/uL [facility] Basophils/100 WBC (Bld) 1 % 0 - 2 % [facility] Eosinophils/100 WBC (Bld) 4 % 1 - 4 % [facility] Hematocrit (Bld) [Volume fraction] 43.6 % 40.7 - 50.3 % [facility] Hemoglobin.gastroi ntestinal spec 1 Ql (Stl) 14.3 g/dL 13.0 - 17.0 g/dL [facility] Immature granulocytes/100 WBC (Bld) 0 % 0 [facility] Interpretation and review of laboratory results Abnormal [facility] Lymphocytes/100 WBC (Bld) 21 % Low 24 - 43 % [facility] MCH (RBC) [Entitic mass] 29.2 pg 25.2 - 33.5 pg [facility] MCHC (RBC) [Mass/Vol] 32.8 g/dL 28.4 - 34.8 g/dL [facility] MCV (RBC) [Entitic vol] 89.0 fL 82.6 - 102.9 fL [facility] Monocytes/100 WBC (Bld) 8 % 3 - 12 % [facility] NRBC Automated 0.0 0.0 per 100 WBC [facility] Platelet distribution width (Bld) [Ratio] 13.7 % 11.8 - 14.4 % [facility] Platelet mean volume (Bld) [Entitic vol] 9.6 fL 8.1 - 13.5 fL [facility] Platelets (Bld) [#/Vol] 392 10*3/uL [facility] RBC (Bld) [#/Vol] 4.90 10*6/uL 4.21 - 5.7 7 m/uL [facility] Segmented neutrophils/100 WBC (Bld) 66 % High 36 - 65 % [facility] Segs Absolute 7.34 [facility] WBC (Bld) [#/Vol] 11.1 10*3/uL [facility] Laboratory - Chemistry and C hemistry - challengeon 07-21-2021 GFR/1.73 sq M.predicted MDRD (S/P/Bld) [Vol rate/Area] [facility] Comment on above: Average GFR for 60-6 9 years old: 85 mL/min/1.73sq m Chronic Kidney Disease: <60 mL/min/1.73sq m Kidney failure: <15 mL/min/1.73sq m eGFR calculated using average adult body mass. Additional eGFR calculator available at: http://www.SportsBUZZ/multiple_crcl_2012.htm Stage 1: Some kidney damage normal GFR Stage 2: Mild kidney damage GFR 60-89 Stage 3: Moderate kidney damage GFR 30-59 Stage 4: Severe kidney damage GFR 15-29 Stage 5: Severe kidney damage GFR <15 ESRD - chronic treatment by dialysis or transplant CBC with Auto Differentialon 06-01-2021 Absolute Eos # 0.62 High [facility] th Absolute Immature Granulocyte 0.05 [facility] Absolute Lymph # 2.36 [facility] Absolute Alger # 0.78 [facility] lth Basophils (Bld) [#/Vol] 0.12 10*3/uL [facility] Basophils/100 WBC (Bld) 1 % 0 - 2 % [facility] Eosinophils/100 WBC (Bld) 6 % High 1 - 4 % [facility] Hematocrit (Bld) [Volume fraction] 44.6 % 40.7 - 50.3 % [facility] Hemoglobin.gastroi ntestinal spec 1 Ql (Stl) 14.4 g/dL 13.0 - 17.0 g/dL [facility] Immature granulocytes/100 WBC (Bld) 1 % High 0 [facility] Interpretation and review of laboratory results Abnormal [facility] Lymphocytes/100 WBC (Bld) 24 % 24 - 43 % [facility] MCH (RBC) [Entitic mass] 28.7 pg 25.2 - 33.5 pg [facility] MCHC (RBC) [Mass/Vol] 32.3 g/dL 28.4 - 34.8 g/dL [facility] MCV (RBC) [Entitic vol] 89.0 fL 82.6 - 102.9 fL [facility] Monocytes/100 WBC (Bld) 8 % 3 - 12 % [facility] NRBC Automated 0.0 0.0 per 100 WBC [facility] Platelet distribution width (Bld) [Ratio] 13.9 % 11.8 - 14.4 % [facility] Platelet mean volume (Bld) [Entitic vol] 9.3 fL 8.1 - 13.5 fL [facility] Platelets (Bld) [#/Vol] 378 10*3/uL [facility] RBC (Bld) [#/Vol] 5.01 10*6/uL 4.21 - 5.7 7 m/uL [facility] Segmented neutrophils/100 WBC (Bld) 60 % 36 - 65 % [facility] Segs Absolute 5.92 [facility] (Bld[facility] [#/Vol] 9.9 10*3/uL [facility] Comprehensive Metabolic Pane jesus 06-01-2021 Albumin [Mass/Vol] 4.2 g/dL 3.5 - 5.2 g/dL [facility] Albumin/Globulin [Mass ratio] 1.4 {ratio} [facility] ALP (Bld) [Catalytic activity/Vol] 75 U/L 40 - 129 U/L [facility] ALT [Catalytic activity/Vol] 43 U/L High 5 - 41 U/L [facility] Anion gap [Moles/Vol] 13 mmol/L 9 - 17 mmol/L [facility] AST [Catalytic activity/Vol] 32 U/L <40 [facility] Bilirubin [Mass/Vol] 0.45 mg/dL 0.3 - 1.2 mg/dL [facility] Calcium [Mass/Vol] 9.8 mg/dL 8.6 - 10. 4 mg/dL [facility] Chloride [Moles/Vol] 101 mmol/L 98 - 107 mmol/L [facility] CO2 [Moles/Vol] 24 mmol/L 20 - 31 mmol/L [facility] Creatinine [Mass/Vol] 0.79 mg/dL 0.70 - 1.20 mg/dL [facility] Free PSA/Total PSA [Mass fraction] 7.3 g/dL 6.4 - 8.3 g/dL [facility] GFR >60 >60 mL/min [facility] GFR Non- >60 >60 mL/min [facility] Glucose [Mass/Vol] 244 mg/dL High 70 - 99 mg/dL [facility] Interpretation and review of laboratory results Abnormal [facility] Potassium [Moles/Vol] 3.8 mmol/L 3.7 - 5.3 mmol/L [facility] Sodium [Moles/Vol] 138 mmol/L 135 - 144 mmol/L [facility] Urea nitrogen (BldV) [Mass/Vol] 13 mg/dL 8 - 23 mg/dL [facility] Urea nitrogen/Creatinin e (Bld) [Mass ratio] 16 [facility] Laboratory - Chemistry and C hemistry - challengeon 06-01-2021 GFR/1.73 sq M.predicted MDRD (S/P/Bld) [Vol rate/Area] [facility] Comment on above: Average GFR for 60-6 9 years old: 85 mL/min/1.73sq m Chronic Kidney Disease: <60 mL/min/1.73sq m Kidney failure: <15 mL/min/1.73sq m eGFR calculated using average adult body mass. Additional eGFR calculator available at: http://www.SportsBUZZ/multiple_crcl_2012.htm Stage 1: Some kidney damage normal GFR Stage 2: Mild kidney damage GFR 60-89 Stage 3: Moderate kidney damage GFR 30-59 Stage 4: Severe kidney damage GFR 15-29 Stage 5: Severe kidney damage GFR <15 ESRD - chronic treatment by dialysis or transplant Lipid Panelon 06-01-2021 Cholesterol [Mass/Vol] 148 mg/dL <200 [facility] Comment on above: Cholesterol Guidelines: <200 Desirable 200-240 Borderline >240 Undesirable Cholesterol in HDL [Mass/Vol] 35 mg/dL Low >40 [facility] Comment on above: HDL Guidelines: <40 Undesirable 40-59 Borderline >59 Desirable Cholesterol in LDL [Mass/Vol] 80 mg/dL 0 - 130 mg/dL [facility] Comment on above: LDL Guidelines: <100 Desirable 100-129 Near to/above Desirable 130-159 Borderline >159 Undesirable Direct (measured) LDL and calculated LDL are not interchangeable tests. Cholesterol.total/ Cholesterol in HDL [Mass ratio] 4.2 {ratio} <5 [facility] Interpretation and review of laboratory results Abnormal [facility] Triglyceride [Mass/Vol] 164 mg/dL High <150 [facility] Comment on above: Triglyceride Guidelines: <150 Desirable 150-199 Borderline 200-499 High >499 Very high Based on AHA Guidelines for fasting triglyceride, November 2011. [facility] PSA Screeningon 06-01-2021 [facility] CBC Auto Differentialon 12-22 Basophils (Bld) [#/Vol] 0.14 10*3/uL [place] Basophils/100 WBC (Bld) 1 % 0 - 2 % [place] Differential Type NOT REPORTED [place] Eosinophils (Bld) [#/Vol] 0.56 10*3/uL [place] Eosinophils/100 WBC (Bld) 5 % High 1 - 4 % [place] Erythrocyte distribution width (RBC) [Ratio] 13.9 % 11.8 - 14.4 % [place] Hematocrit (Bld) [Volume fraction] 43.8 % 40.7 - 50.3 % [place] Hemoglobin (Bld) [Mass/Vol] 13.9 g/dL 13 - 17 g/dL [place] Immature granulocytes (Bld) [#/Vol] 0.06 10*3/uL [place] Immature granulocytes (Bld) [#/Vol] 1 % High 0 [place] Interpretation and review of laboratory results Abnormal [place] Lymphocytes (Bld) [#/Vol] 2.18 10*3/uL [place] Lymphocytes/100 WBC (Bld) 19 % Low 24 - 43 % [place] MCH (RBC) [Entitic mass] 28.7 pg 25.2 - 33.5 pg [place] MCHC (RBC) [Mass/Vol] 31.7 g/dL 28.4 - 34.8 g/dL [place] MCV (RBC) [Entitic vol] 90.5 fL 82.6 - 102.9 fL [place] Monocytes (Bld) [#/Vol] 0.87 10*3/uL [place] Monocytes/100 WBC (Bld) 8 % 3 - 12 % [place] Platelet mean volume (Bld) [Entitic vol] 8.9 fL 8.1 - 13.5 fL [place] Platelets (Bld) [#/Vol] NOT REPORTED [place] Platelets (Bld) [#/Vol] 376 10*3/uL [place] RBC (Bld) [#/Vol] 4.84 10*6/uL 4.21 - 5.7 7 m/uL [place] RBC morphology finding Nom (Bld) NOT REPORTED [place] Segmented neutrophils/100 WBC (Bld) 66 % High 36 - 65 % [place] Segs Absolute 7.52 [place] WBC (Bld) [#/Vol] 0.0 10*3/uL 0.0 per 10 0 WBC [place] WBC (Bld) [#/Vol] 11.3 10*3/uL [place] WBC Morphology NOT REPORTED [place] Comprehensive Metabolic Pane jesus 01-08-2020 Albumin [Mass/Vol] 4.4 g/dL 3.5 - 5.2 g/dL [place] Albumin/Globulin [Mass ratio] 1.4 {ratio} [place] ALP [Catalytic activity/Vol] 63 U/L 40 - 129 U/L [place] ALT [Catalytic activity/Vol] 35 U/L 5 - 41 U/L [place] Anion gap [Moles/Vol] 14 mmol/L 9 - 17 mmol/L [place] AST [Catalytic activity/Vol] 31 U/L <40 [place] Bilirubin Ql (U) 0.30 mg/dL 0.3 - 1.2 mg/dL [place] Bun/Cre Ratio 20 [place] Calcium [Mass/Vol] 10.0 mg/dL 8.6 - 10. 4 mg/dL [place] Chloride [Moles/Vol] 99 mmol/L 98 - 107 mmol/L [place] CO2 [Moles/Vol] 24 mmol/L 20 - 31 mmol/L [place] Creatinine [Mass/Vol] 0.71 mg/dL 0.7 - 1.2 mg/dL [place] GFR >60 >60 mL/min [place] GFR Non- >60 >60 mL/min [place] Glucose [Mass/Vol] 225 mg/dL High 70 - 99 mg/dL [place] Interpretation and review of laboratory results Abnormal [place] Potassium [Moles/Vol] 4.0 mmol/L 3.7 - 5.3 mmol/L [place] Protein [Mass/Vol] 7.5 g/dL 6.4 - 8.3 g/dL [place] Sodium [Moles/Vol] 137 mmol/L 135 - 144 mmol/L [place] Urea nitrogen [Mass/Vol] 14 mg/dL 8 - 23 mg/dL [place] Lipid Panelon 01-08-2020 Cholesterol [Mass/Vol] 144 mg/dL <200 [place] Comment on above: Cholesterol Guidelines: <200 Desirable 200-240 Borderline >240 Undesirable Cholesterol in HDL [Mass/Vol] 34 mg/dL Low >40 [place] Comment on above: HDL Guidelines: <40 Undesirable 40-59 Borderline >59 Desirable Cholesterol in LDL [Mass/Vol] 84 mg/dL 0 - 130 mg/dL [place] Comment on above: LDL Guidelines: <100 Desirable 100-129 Near to/above Desirable 130-159 Borderline >159 Undesirable Direct (measured) LDL and calculated LDL are not interchangeable tests. Cholesterol in VLDL [Mass/Vol] NOT REPORTED 1 - 30 mg/dL [place] Cholesterol.total/ Cholesterol in HDL [Mass ratio] 4.2 {ratio} <5 [place] Interpretation and review of laboratory results Abnormal [place] Triglyceride [Mass/Vol] 130 mg/dL <150 [place] Comment on above: Triglyceride Guidelines: <150 Desirable 150-199 Borderline 200-499 High >499 Very high Based on AHA Guidelines for fasting triglyceride, November 2011. Metabolic Panelon 01-08-2020 GFR/1.73 sq M predicted among non-blacks MDRD (S/P/Bld) [Vol rate/Area] [place] Comment on above: Stage 1: Some [...] body mass. Additional eGFR calculator available at: http://www.SportsBUZZ/multiple_crcl_2012.htm Microalbumin, Uron 0 Albumin/Creatinine DL <= 20 mg/L (24H U) [Mass ratio] 53 mg/L High <21 [place] Albumin/Creatinine DL <= 20 mg/L (U) [Ratio] 28 High <17 mcg/mg creat [place] Creatinine [Mass/Vol] 189.9 mg/dL 39 - 259 mg/dL [place] Interpretation and review of laboratory results Abnormal [place] Cult,Aerobe/Anaerobeon 01-14 Cult,Aerobe/Anaero be Specimen Description [...] Trimethoprim/Sulfa <=20 SUSCEPTIBLE Piperacillin/Tazobactam <=4 SUSCEPTIBLE Normal [facility] Comment on above: Performed By: #### A ANC #### [facility] [address] [place] [address] Spinner Operator: Dexter Madera MD [facility] [address] [place] [address] Spinner Operator: Morgan Andino MD CBC auto differentialon 12-23 Basophils (Bld) [#/Vol] 0.10 10*3/uL [place] Basophils/100 WBC (Bld) 1 % 0 - 2 % [place] Differential Type YES [place] Eosinophils (Bld) [#/Vol] 0.10 10*3/uL [place] Eosinophils/100 WBC (Bld) 1 % 0 - 5 % [place] Erythrocyte distribution width (RBC) [Ratio] 13.9 % 12.1 - 15.2 % [place] Hematocrit (Bld) [Volume fraction] 40.3 % Low 41 - 53 % [place] Hemoglobin (Bld) [Mass/Vol] 13.5 g/dL 13.5 - 17.5 g/dL [place] Interpretation and review of laboratory results Abnormal [place] Lymphocytes (Bld) [#/Vol] 1.40 10*3/uL [place] Lymphocytes/100 WBC (Bld) 11 % Low 13 - 44 % [place] MCH (RBC) [Entitic mass] 28.9 pg 26 - 34 pg [place] MCHC (RBC) [Mass/Vol] 33.5 g/dL 31 - 37 g/dL [place] MCV (RBC) [Entitic vol] 86.1 fL 80 - 100 fL [place] Monocytes (Bld) [#/Vol] 1.10 10*3/uL [place] Monocytes/100 WBC (Bld) 9 % 5 - 9 % [place] Platelet mean volume (Bld) [Entitic vol] NOT REPORTED 6 - 12 fL [place] Platelets (Bld) [#/Vol] 317 10*3/uL [place] Platelets (Bld) [#/Vol] NOT REPORTED [place] RBC (Bld) [#/Vol] 4.68 10*6/uL 4.5 - 5.9 m/uL [place] RBC morphology finding Nom (Bld) NOT REPORTED [place] Segmented neutrophils/100 WBC (Bld) 78 % High 39 - 75 % [place] Segs Absolute 9.70 High [place] WBC (Bld) [#/Vol] NOT REPORTED per 100 WBC [place] WBC (Bld) [#/Vol] 12.3 10*3/uL [place] WBC Morphology NOT REPORTED [place] CBC with Diffon 01-12-2019 Abs. Basophil 0.10 k/uL Normal 0.0-0.2 [facility] Comment on above: Performed By: #### C DP #### [facility] [address] [place] [address] Spinner Operator: Morgan Andino MD Abs.Neutrophil (Seg) 9.70 k/uL High 2.1-6.5 [facility] Comment on above: Performed By: #### C DP #### [facility] [address] [place] [address] Spinner Operator: Morgan Andino MD Auto Diff Performed YES Normal [facility] Comment on above: Performed By: #### C DP #### [facility] [address] [place] [address] Spinner Operator: Morgan Andino MD Basophils/100 WBC (Bld) 1 % Normal 0-2 [facility] Comment on above: Performed By: #### C DP #### [facility] [address] [place] [address] Spinner Operator: Morgan Andino MD Eosinophils (Bld) [#/Vol] 0.10 10*3/uL Normal 0.0-0.4 [facility] Comment on above: Performed By: #### C DP #### [facility] [address] [place] [address] Spinner Operator: Morgan Andino MD Eosinophils/100 WBC (Bld) 1 % Normal 0-5 [facility] Comment on above: Performed By: #### C DP #### [facility] [address] [place] [address] Spinner Operator: Morgan Andino MD Erythrocyte distribution width (RBC) [Ratio] 13.9 % Normal 12.1-15.2 [facility] Comment on above: Performed By: #### C DP #### [facility] [address] [place] [address] Spinner Operator: Morgan Andino MD Hematocrit (Bld) [Volume fraction] 40.3 % Low 41-53 [facility] Comment on above: Performed By: #### C DP #### [facility] [address] [place] [address] Spinner Operator: Morgan Andino MD Hemoglobin (Bld) [Mass/Vol] 13.5 g/dL Normal 13.5-17.5 [facility] Comment on above: Performed By: #### C DP #### [facility] [address] [place] [address] Spinner Operator: Morgan Andino MD Lymphocytes (Bld) [#/Vol] 1.40 10*3/uL Normal 1.0-4.8 [facility] Comment on above: Performed By: #### C DP #### [facility] [address] [place] [address] Spinner Operator: Morgan Andino MD Lymphocytes/100 WBC (Bld) 11 % Low 13-44 [facility] Comment on above: Performed By: #### C DP #### [facility] [address] [place] [address] ([phone]) Spinner Operator: Morgan Andino MD MCH (RBC) [Entitic mass] 28.9 pg Normal 26-34 [facility] Comment on above: Performed By: #### C DP #### [facility] [address] [place] [address] Spinner Operator: Morgan Andino MD MCHC (RBC) [Mass/Vol] 33.5 g/dL Normal 31-37 [facility] Comment on above: Performed By: #### C DP #### [facility] [address] [place] [address] Spinner Operator: Morgan Andino MD MCV (RBC) [Entitic vol] 86.1 fL Normal 80-100 [facility] Comment on above: Performed By: #### C DP #### [facility] [address] [place] [address] Spinner Operator: Morgan Andino MD Monocytes (Bld) [#/Vol] 1.10 10*3/uL High 0.0-1.0 [facility] Comment on above: Performed By: #### C DP #### [facility] [address] [place] [address] Spinner Operator: Morgan Andino MD Monocytes/100 WBC (Bld) 9 % Normal 5-9 [facility] Comment on above: Performed By: #### C DP #### [facility] [address] [place] [address] Spinner Operator: Morgan Andino MD Neutrophil (Seg) 78 % High 39-75 [facility] Comment on above: Performed By: #### C DP #### [facility] [address] [place] [address] Spinner Operator: Morgan Andino MD Platelets (Bld) [#/Vol] 317 10*3/uL Normal 140-450 [facility] Comment on above: Performed By: #### C DP #### [facility] [address] [place] [address] Spinner Operator: Morgan Andino MD RBC (Bld) [#/Vol] 4.68 10*6/uL Normal 4.5-5.9 [facility] Comment on above: Performed By: #### C DP #### [facility] [address] [place] [address] Spinner Operator: Morgan Andino MD WBC (Bld) [#/Vol] 12.3 10*3/uL High 3.5-11.0 [facility] Comment on above: Performed By: #### C DP #### [facility] [address] [place] [address] Spinner Operator: Morgan Andino MD Abs.Imm.Granulocyt e NOT REPORTED Normal 0.00-0.30 [facility] Comment on above: Performed By: #### C DP #### [facility] [address] [place] [address] Spinner Operator: Morgan Andino MD Immature granulocytes (Bld) [#/Vol] NOT REPORTED Normal 0 [facility] Comment on above: Performed By: #### C DP #### [facility] [address] [place] [address] Spinner Operator: Morgan Andino MD NRBC Automated NOT REPORTED Normal [facility] Comment on above: Performed By: #### C DP #### [facility] [address] [place] [address] Spinner Operator: Morgan Andino MD Platelet mean volume (Bld) [Entitic vol] NOT REPORTED Normal 6.0-12.0 [facility] Comment on above: Performed By: #### C DP #### [facility] [address] [place] [address] Spinner Operator: Morgan Andino MD Platelets (Bld) [#/Vol] NOT REPORTED Normal [facility] Comment on above: Performed By: #### C DP #### [facility] [address] [place] [address] Spinner Operator: Morgan Andino MD RBC morphology finding Nom (Bld) NOT REPORTED Normal [facility] Comment on above: Performed By: #### C DP #### [facility] [address] [place] [address] Spinner Operator: Morgan Andino MD WBC Morphology NOT REPORTED Normal [facility] Comment on above: Performed By: #### C DP #### [facility] [address] [place] [address] Spinner Operator: Morgan Andino MD Glucose, Whole Bloodon 01-12 Glucose [Mass/Vol] 242 mg/dL High 65 - 99 mg/dL [place], [place] Interpretation and review of laboratory results Abnormal [place] Glucose [Mass/Vol] 261 mg/dL High 65 - 99 mg/dL [place] Interpretation and review of laboratory results Abnormal [place] OPERATIVE REPORTon 9 OPERATIVE REPORT [facility] [address] [place] [address] OPERATIVE REPORT PATIENT NAME: KWABENA AKERS : 1950 MED REC NO: [id number] ROOM: ACCOUNT NO: [id number] ADMIT DATE: 01/12/2019 PROVIDER: Jessica Cooper DATE [...] gluteal/perianal abscess fluid for culture. DRAINS: A [place] with half-inch Nu Gauze. COMPLICATIONS: None. DISPOSITION: [...] for the consultation. JESSICA COOPER [id number] Doc#: [id number] CC: Phil Molina Eric [facility] Otheron 01-12-2019 Immature granulocytes (Bld) [#/Vol] NOT REPORTED 0 % [place], [place] Hemoglobin A1Con 09-25-2017 Glucose mass conc 197 mg/dL [facility] Comment on above: Result Comment: The ADA and AACC recommend providing the estimated average glucose result to permit better patient understanding of their HBA1c result. Performed By: #### C DP, BMP, LIPR, GLYHGB ####[facility] [address] [place], [place] [id number] Hemoglobin A1c/Hemoglobin.tot al mass fraction (Bld) 8.5 % High 4.0-6.0 [facility] Comment on above: Performed By: #### C DP, BMP, LIPR, GLYHGB ####[facility] [address] [place], [place] [id number] Basic Metabolic Profon 09-22 (cont.) [facility] Comment on above: Result Comment: Aver age GFR for 60-69 years old: 85 mL/min/1.73sq mChronic Kidney Disease: <60 mL/min/1.73sq mKidney failure: <15 mL/min/1.73sq meGFR calculated using average adult body mass. Additional eGFR calculator available at:http://www.[employer].com/multiple_crcl_2012.htm Performed By: #### C DP, BMP, LIPR, GLYHGB ####[address] [place] [address] Anion gap 3 molar conc 14 mmol/L Normal 9-17 [facility] Comment on above: Performed By: #### C DP, BMP, LIPR, GLYHGB ####[address] [place] [address] Calcium mass conc 9.2 mg/dL Normal 8.6-10.4 [facility] Comment on above: Performed By: #### C DP, BMP, LIPR, GLYHGB ####[address] [address] Chloride molar conc 99 mmol/L Normal 98-107 [facility] Comment on above: Performed By: #### C DP, BMP, LIPR, GLYHGB ####[address] [address] CO2 molar conc 25 mmol/L Normal 20-31 [facility] Comment on above: Performed By: #### C DP, BMP, LIPR, GLYHGB ####[address] [address] Creatinine mass conc 0.58 mg/dL Low 0.70-1.20 [facility] Comment on above: Performed By: #### C DP, BMP, LIPR, GLYHGB ####[address] [place] [address] GFR, Amer >60 Normal >60 [facility] Comment on above: Performed By: #### C DP, BMP, LIPR, GLYHGB ####[address] [address] GFR,non Amer >60 Normal >60 [facility] Comment on above: Performed By: #### C DP, BMP, LIPR, GLYHGB ####[facility] [address] [place] [address] Glucose mass conc 144 mg/dL High 70-99 [facility] Comment on above: Performed By: #### C DP, BMP, LIPR, GLYHGB ####[facility] [address] [place] [address] Potassium molar conc 3.8 mmol/L Normal 3.7-5.3 [facility] Comment on above: Performed By: #### C DP, BMP, LIPR, GLYHGB ####[address] [place] [address] Sodium molar conc 138 mmol/L Normal 135-144 [facility] Comment on above: Performed By: #### C DP, BMP, LIPR, GLYHGB ####[facility] [address] [place] [address] Urea nitrogen mass conc 12 mg/dL Normal 8-23 [facility] Comment on above: Performed By: #### C DP, BMP, LIPR, GLYHGB ####[address] [place] [address] BUN/CRE Ratio NOT REPORTED Normal 9-20 [facility] Comment on above: Performed By: #### C DP, BMP, LIPR, GLYHGB ####[facility] [address] [place] [address] Staging: NOT REPORTED Normal [facility] Comment on above: Performed By: #### C DP, BMP, LIPR, GLYHGB ####[address] [place] [address] CBC with Diffon 09-22-2017 Abs. Basophil 0.14 k/uL Normal 0.00-0.20 [facility] Comment on above: Performed By: #### C DP, BMP, LIPR, GLYHGB ####[address] [address] Abs.Imm.Granulocyt e 0.06 k/uL Normal 0.00-0.30 [facility] Comment on above: Performed By: #### C DP, BMP, LIPR, GLYHGB ####[place] [address] Abs.Neutrophil (Seg) 6.21 k/uL Normal 1.50-8.10 [facility] Comment on above: Performed By: #### C DP, BMP, LIPR, GLYHGB ####[address] [address] Basophils/100 WBC Auto (Bld) 1 % Normal 0-2 [facility] Comment on above: Performed By: #### C DP, BMP, LIPR, GLYHGB ####[address] [address] Eosinophils Auto #/vol (Bld) 0.70 10*3/uL High 0.00-0.44 [facility] Comment on above: Performed By: #### C DP, BMP, LIPR, GLYHGB ####[address] [address] Eosinophils/100 WBC Auto (Bld) 7 % High 1-4 [facility] Comment on above: Performed By: #### C DP, BMP, LIPR, GLYHGB ####[address] [address] Erythrocyte distribution width Auto Ratio (RBC) 13.9 % Normal 11.8-14.4 [facility] Comment on above: Performed By: #### C DP, BMP, LIPR, GLYHGB ####[address] [address] Hematocrit Auto Volume Fraction (Bld) 44.5 % Normal 40.7-50.3 [facility] Comment on above: Performed By: #### C DP, BMP, LIPR, GLYHGB ####[address] [address] Hemoglobin mass conc (Bld) 14.5 g/dL Normal 13.0-17.0 [facility] Comment on above: Performed By: #### C DP, BMP, LIPR, GLYHGB ####[address] [address] Immature granulocytes #/vol (Bld) 1 % High 0 [facility] Comment on above: Performed By: #### C DP, BMP, LIPR, GLYHGB ####[address] [address] Lymphocytes Auto #/vol (Bld) 2.80 10*3/uL Normal 1.10-3.70 [facility] Comment on above: Performed By: #### C DP, BMP, LIPR, GLYHGB ####[address] [address] Lymphocytes/100 WBC Auto (Bld) 26 % Normal 24-43 [facility] Comment on above: Performed By: #### C DP, BMP, LIPR, GLYHGB ####[address] [address] MCH Auto Entitic mass (RBC) 27.9 pg Normal 25.2-33.5 [facility] Comment on above: Performed By: #### C DP, BMP, LIPR, GLYHGB ####[address] [address] MCHC Auto mass conc (RBC) 32.6 g/dL Normal 28.4-34.8 [facility] Comment on above: Performed By: #### C DP, BMP, LIPR, GLYHGB ####[address] [address] MCV Auto Entitic volume (RBC) 85.7 fL Normal 82.6-102.9 [facility] Comment on above: Performed By: #### C DP, BMP, LIPR, GLYHGB ####[address] [address] Monocytes Auto #/vol (Bld) 0.94 10*3/uL Normal 0.10-1.20 [facility] Comment on above: Performed By: #### C DP, BMP, LIPR, GLYHGB ####[address] [address] Monocytes/100 WBC Auto (Bld) 9 % Normal 3-12 [facility] Comment on above: Performed By: #### C DP, BMP, LIPR, GLYHGB ####[address] [address] Neutrophil (Seg) 56 % Normal 36-65 [facility] Comment on above: Performed By: #### C DP, BMP, LIPR, GLYHGB ####[address] [address] NRBC Automated 0.0 per 100 WBC Normal 0.0 [facility] Comment on above: Performed By: #### C DP, BMP, LIPR, GLYHGB ####[address] [address] Platelet mean volume Auto Entitic volume (Bld) 8.8 fL Normal 8.1-13.5 [facility] Comment on above: Performed By: #### C DP, BMP, LIPR, GLYHGB ####[address] [address] Platelets Auto #/vol (Bld) 316 10*3/uL Normal 138-453 [facility] Comment on above: Performed By: #### C DP, BMP, LIPR, GLYHGB ####[address] [address] RBC Auto #/vol (Bld) 5.19 10*6/uL Normal 4.21-5.77 [facility] Comment on above: Performed By: #### C DP, BMP, LIPR, GLYHGB ####[address] [address] WBC Auto #/vol (Bld) 10.9 10*3/uL Normal 3.5-11.3 [facility] Comment on above: Performed By: #### C DP, BMP, LIPR, GLYHGB ####[address] [address] Auto Diff Performed NOT REPORTED Normal [facility] Comment on above: Performed By: #### C DP, BMP, LIPR, GLYHGB ####[address] [address] Platelets Auto #/vol (Bld) NOT REPORTED Normal [facility] Comment on above: Performed By: #### C DP, BMP, LIPR, GLYHGB ####[address] [address] RBC morphology finding Nom (Bld) NOT REPORTED Normal [facility] Comment on above: Performed By: #### C DP, BMP, LIPR, GLYHGB ####[address] [address] WBC Morphology NOT REPORTED Normal [facility] Comment on above: Performed By: #### C DP, BMP, LIPR, GLYHGB ####[address] [address] CTA HEAD W CONTRASTon 2017 CTA HEAD [...] by:MARY Duffyigned by:Luiz Mariano MD8//18Final result Normal [facility] CTA NECK W CONTRASTon 2017 CTA [...] by:MARY Duffyigned by:Luiz Mariano MD//18Final result Normal [facility] Consulton 09-22-2017 HIM IP Note OR Associate Business Analyst Normal [facility] HIM IP Note OR Associate Business Analyst Normal [facility] Discharge Summaryon 09-23-19 18 HIM IP Note OR Associate Business Analyst Normal [facility] ED Noteon 09-22-2017 HIM IP Note OR Associate Business Analyst Normal [facility] HIM IP Note OR Associate Business Analyst Normal [facility] ED Provider Noteon 8 HIM IP Note OR Associate Business Analyst Normal [facility] History and Physicalon 09-22 HIM IP Note OR Associate Business Analyst Normal [facility] Lipid Profileon 09-22-2017 Cholesterol in HDL mass conc 28 mg/dL Low >40 [facility] Comment on above: Result Comment: HDL Guidelines: <40 Undesirable 40-59 Borderline >59 Desirable Performed By: #### C DP, BMP, LIPR, GLYHGB ####[facility] [address] [place] [address] Cholesterol in LDL mass conc 79 mg/dL Normal 0-130 [facility] Comment on above: Result Comment: LDL Guidelines: <100 Desirable 100-129 Near to/above Desirable 130-159 Borderline >159 UndesirableDirect (measured) LDL and calculated LDL are not interchangeable tests. Performed By: #### C DP, BMP, LIPR, GLYHGB ####[facility] [address] [place] [address] Cholesterol mass conc 135 mg/dL Normal <200 [facility] Comment on above: Result Comment: Chol esterol Guidelines: <200 Desirable 200-240 Borderline >240 Undesirable Performed By: #### C DP, BMP, LIPR, GLYHGB ####[facility] [address] [place] [address] Cholesterol.total/ Cholesterol in HDL mass ratio 4.8 {ratio} Normal <5 [facility] Comment on above: Performed By: #### C DP, BMP, LIPR, GLYHGB ####[facility] [address] [place] [address] Triglyceride mass conc 140 mg/dL Normal <150 [facility] Comment on above: Result Comment: Trig lyceride Guidelines: <150 Desirable 150- 199 Borderline 200-499 High >499 Very high Based on AHA Guidelines for fasting triglyceride, November 2011. Performed By: #### C DP, BMP, LIPR, GLYHGB ####[facility] [address] [place] [address] Cholesterol in VLDL mass conc NOT REPORTED Normal -30 [facility] Comment on above: Performed By: #### C DP, BMP, LIPR, GLYHGB ####[facility] [address] [place] [address] MRI BRAIN WO CONTRASTon MRI BRAIN WO [...] - In Basket (authorizing provider)Final result Normal [facility] Progress Noteon 09-22-2017 HIM IP Note OR Associate Business Analyst Normal [facility] HIM IP Note OR Associate Business Analyst Normal [facility] HIP RIGHT 1 OR 2 VWS WITH PE LVISon 02-03-2017 HIP RIGHT 1 OR 2 VWS WITH PELVIS [facility] [address]wbi[address] [place] [address] P atient Name: KWABENA AKERS : 1950Sex: MAge: Race: WhiteMRN: [id number]. Location: 84Patient Status: OVisit #: [id number] Date: 02/03/2017 1:25:00 PMCompleted Date: 02/03/2017 01:36 PMRequesting Provider: ONEIL WILLIAMSON Attending Provider: ONEIL WILLIAMSON Report Copy To: Signs & Symptoms: Z47.1 Aftercare following joint replacement surgery [id number]: AthenaComments: , , , Ordering Provider - ONEIL WILLIAMSON MD , Rendering Provider - ONEIL WILLIAMSON MD , Exam: HIP RIGHT 1 OR 2 VWS WITH PELVISAccession #: [id number] ======HIP RIGHT 1 OR 2 VWS WITH [...] arthroplasty Electronically signed by:Keri Durand. Transcribed by: [email or web address], User Resident: Electronically Signed by: KERI DURAND @ 02/03/2017 01:52 PM Normal [facility] Comment on above: Order Comment: , , = ========= , Ordering Provider - ONEIL WILLIAMSON MD , Rendering Provider - ONEIL WILLIAMSON MD , C REACTIVE PROTEINon 01-04-2 017 C reactive protein (CRP) 10.5 mg/L High 0.0-7.0 [facility] Comment on above: Performed By: #### 4 6447 ####[facility] CBC COMPLETE BLOOD COUNTon 1 03-06-2016 Erythrocyte distribution width Auto Ratio (RBC) 14.8 % Normal 11.5-16.9 The [facility] Comment on above: Performed By: #### 4 6447 ####[facility] Erythrocytes (RBC) 4.65 mill/mm3 Normal 4.30-5.90 [facility] Comment on above: Performed By: #### 4 6447 ####[facility] Hematocrit (HCT) 40.2 % Normal 39.0-55.0 The [facility] Comment on above: Performed By: #### 4 6447 ####[facility] Hemoglobin mass conc (Bld) 12.9 g/dL Low 13.9-16.3 [facility] Comment on above: Performed By: #### 4 6447 ####[facility] MCH 27.7 pg Normal 24.0-32.0 [facility] Comment on above: Performed By: #### 4 6447 ####[facility] MCHC mass conc (RBC) 32.0 g/dL Normal 32.0-36.0 [facility] Comment on above: Performed By: #### 4 6447 ####[facility] MCV 86.6 fL Normal 80.0-100.0 [facility] Comment on above: Performed By: #### 4 6447 ####[facility] PLAT CNT 629 Thou/mm3 High 100-400 [facility] Comment on above: Performed By: #### 4 6475 ####[facility] WBC (Leukocytes) 10.4 Thou/mm3 High 4.0-10.[address] [facility] Comment on above: Performed By: #### 4 6464 ####[facility] SEDIMENTATION RATEon 11-14-2 017 SED RATE 50 mm/hr High 0-10 [facility] Comment on above: Performed By: #### 4 6430 ####[facility] CBC W/DIFFon 12-28-2016 Basophils Auto #/vol (Bld) 0.8 % Normal 0.0-2.0 [facility] Comment on above: Performed By: #### 4 6447 ####[facility] [place] [address], [facility] Eosinophils/100 leukocytes 4.0 % Normal 0.0-5.0 [facility] Comment on above: Performed By: #### 4 6447 ####[facility] Erythrocyte distribution width Auto Ratio (RBC) 14.5 % Normal 11.5-16.9 [facility] Comment on above: Performed By: #### 4 6447 ####[facility] Erythrocytes (RBC) 4.34 mill/mm3 Normal 4.30-5.90 [facility] Comment on above: Performed By: #### 4 6447 ####[facility] Hematocrit (HCT) 37.5 % Low 39.0-55.0 [facility] Comment on above: Performed By: #### 4 6447 ####[facility] Hemoglobin mass conc (Bld) 12.3 g/dL Low 13.9-16.3 [facility] Comment on above: Performed By: #### 4 6422 ####[facility] [place] [address], [facility] Lymphocytes/100 leukocytes 17.8 % Low 20.0-40.0 The [facility] Comment on above: Performed By: #### 4 6487 ####[facility] MCH 28.3 pg Normal 24.0-32.0 The [facility] Comment on above: Performed By: #### 4 6447 ####[facility] MCHC mass conc (RBC) 32.7 g/dL Normal 32.0-36.0 [facility] Comment on above: Performed By: #### 4 6404 ####[facility] MCV 86.5 fL Normal 80.0-100.0 The [facility] Comment on above: Performed By: #### 4 6477 ####[facility] METHOD Normal RBC Morphology Normal [facility] Comment on above: Performed By: #### 4 9808 ####[facility] MONOS 8.0 % Normal 2-8 The [facility] Comment on above: Performed By: #### 4 6406 ####[facility] Neutrophils/100 leukocytes 69.4 % Normal 50-70 The [facility] Comment on above: Performed By: #### 4 6423 ####[facility] [facility].[address] PLAT CNT 689 Thou/mm3 High 100-400 [facility] Comment on above: Performed By: #### 4 3890 ####[facility] WBC (Leukocytes) 12.6 Thou/mm3 High 4.0-10.0 The [facility] Comment on above: Performed By: #### 4 4426 ####[facility] HIP RIGHT 1 OR 2 VWS WITH PE LVISon 12-28-2016 HIP RIGHT 1 OR 2 VWS WITH PELVIS [facility] Fq[address]zemkz[address] [facility] [place] [address] P atient Name: KWABENA AKERS : 1950Sex: MAge: Race: WhiteMRN: [id number]. Location: 84Patient Status: Date: 12/28/2016 11:15:00 AMCompleted Date: 12/28/2016 11:17 AMRequesting Provider: ONEIL WILLIAMSON Attending Provider: Report Copy To: Signs & Symptoms: Z47.1 Aftercare following joint replacement surgery [id number]: AthenaComments: , , , Ordering Provider - ONEIL WILLIAMSON MD , Exam: HIP RIGHT 1 OR 2 VWS WITH PELVISAccession #: [id number] ======HIP RIGHT 1 OR 2 VWS WITH [...] above Electronically signed by:Keri Durand. Transcribed by: [email or web address], User Resident: Electronically Signed by: KERI DURAND @ 12/28/2016 12:11 PM Normal [facility] Comment on above: Order Comment: , , = ========= , Ordering Provider - ONEIL WILLIAMSON MD , Discharge Summaryon 12-26-19 17 Discharge Summary MR#: [id number] [facility] Admitted: 12/16/2016 Discharged: [...] 12/24/2016/02:55 P/Amparo Zimmerman Trans: 12/25/2016 10:33 A/Ana Maria_JN:[id number] c: Phil Molina M.D. [address] [place] [address] , [address] [address] [place] [facility] Operative Reporton 7 Operative Report MR#: [id number] [facility] Room #: 6AB [id number] Discharge 12/17/2016 Date: Birthdate: 1950 OPERATIVE REPORTDATE OF SURGERY: 12/16/2016SURGEON: Oneil Williamson M.D.SURGEON: Oneil Williamson MD.PROTECTIVE SIGNAL SUPERINTENDENT: Dr. LoomisANESTHESIA: General anesthesia with fascia iliaca [...] The minimus was closed itselfwith #2 interrupted hbvfju-wz-sbrop suture. The medius to itself with arunning #5 fiber suture. The vastus lateralis with a running #2 Vicrylsuture. The IT band with #2 interrupted svykvh-ls-hmvqs suture. Thesubcutaneous tissue over drain with a running 0-Vicryl suture. The dermiswith 2-0 Vicryl and Biosyn for the skin. Dermabond was applied. Steriledressing applied. At the conclusion of the case, all sponge, needle countscorrect. I was present for the critical portions of this case.Electronically Signed by:Oneil Williamson M.D. 01/05/2017 08:31 P Oneil Williamson M.D.Date Dict: 12/20/2016/09:46 A/Oneil Williamson M.D.Date Trans: 12/20/2016 01:09 P/[id number] c: Phil Molina M.D. [address] [facility] , [place] [facility] [address] Normal [facility] BASIC METABOLIC PANELon 10-2 Calcium 8.4 mg/dL Low 8.6-10.3 [facility] Comment on above: Order Comment: No: D o not add to previous draw Performed By: #### 5 0103 ####[facility] [facility] [place] [address], [facility] Chloride 103 mmol/L Normal 98-107 [facility] Comment on above: Order Comment: No: D o not add to previous draw Performed By: #### 5 0103 ####[facility] [facility] [place] [address], [facility] CO2 24 mmol/L Normal 21-31 [facility] Comment on above: Order Comment: No: D o not add to previous draw Performed By: #### 5 0103 ####[facility] [facility].[address] Creatinine 0.72 mg/dL Normal 0.70-1.30 [facility] Comment on above: Order Comment: No: D o not add to previous draw Performed By: #### 5 0103 ####[place] [id number] [facility].[address] eGFR (black) mL/min/{1.73_m2} Normal >[address] [facility] Comment on above: Order Comment: No: D o not add to previous draw Performed By: #### 5 0103 ####[facility] eGFR (non-black) mL/min/{1.73_m2} Normal >60 Th e [facility] Comment on above: Order Comment: No: D o not add to previous draw Performed By: #### 5 0103 ####[facility] [place] [address], [facility] Glucose mass conc 191 mg/dL High 70-100 The [facility] Comment on above: Order Comment: No: D o not add to previous draw Performed By: #### 5 3 ####[facility] Potassium molar conc 3.9 mmol/L Normal 3.5-5.1 The [facility] Comment on above: Order Comment: No: D o not add to previous draw Performed By: #### 5 3 ####[facility] Sodium 135 mmol/L Low 136-145 [facility] Comment on above: Order Comment: No: D o not add to previous draw Performed By: #### 5 3 ####[facility] Urea nitrogen 12 mg/dL Normal 7-[address] [facility] Comment on above: Order Comment: No: D o not add to previous draw Performed By: #### 5 3 ####[facility] [place] [address], [facility] CBC W/DIFFon 12-17-2016 Basophils Auto #/vol (Bld) 0.3 % Normal 0.0-2.0 The [facility] Comment on above: Order Comment: No: D o not add to previous draw Performed By: #### 5 3 ####[facility] [place] [address], [facility] Eosinophils/100 leukocytes 1.0 % Normal 0.0-5.0 The [facility] Comment on above: Order Comment: No: D o not add to previous draw Performed By: #### 5 0103 ####[facility] [facility] [address], [facility] Erythrocyte distribution width Auto Ratio (RBC) 15.0 % Normal 11.5-16.9 The [facility] Comment on above: Order Comment: No: D o not add to previous draw Performed By: #### 5 0103 ####[facility] [facility].[address] Erythrocytes (RBC) 4.01 mill/mm3 Low 4.30-5.90 The [facility] Comment on above: Order Comment: No: D o not add to previous draw Performed By: #### 5 0103 ####[facility] [facility].[address] Hematocrit (HCT) 34.7 % Low 39.0-55.0 The [facility] Comment on above: Order Comment: No: D o not add to previous draw Performed By: #### 5 0103 ####[facility] [facility].[address] Hemoglobin mass conc (Bld) 11.4 g/dL Low 13.9-16.3 The [facility] Comment on above: Order Comment: No: D o not add to previous draw Performed By: #### 5 0103 ####[facility] [facility] [place] [address], [facility] Lymphocytes/100 leukocytes 12.8 % Low 20.0-40.0 The [facility] Comment on above: Order Comment: No: D o not add to previous draw Performed By: #### 5 0103 ####[facility] [facility] [place] [address], [facility] MCH 28.3 pg Normal 24.0-32.0 The [facility] Comment on above: Order Comment: No: D o not add to previous draw Performed By: #### 5 0103 ####[facility] MCHC mass conc (RBC) 32.8 g/dL Normal 32.0-36.0 The [facility] Comment on above: Order Comment: No: D o not add to previous draw Performed By: #### 5 0103 ####[facility] MCV 86.5 fL Normal 80.0-100.0 The [facility] Comment on above: Order Comment: No: D o not add to previous draw Performed By: #### 5 0103 ####[facility] METHOD Normal RBC Morphology Normal The [facility] Comment on above: Order Comment: No: D o not add to previous draw Performed By: #### 5 0103 ####[facility] MONOS 10.4 % High 2-8 The [facility] Comment on above: Order Comment: No: D o not add to previous draw Performed By: #### 5 0103 ####[facility] [place] [address], [facility] Neutrophils/100 leukocytes 75.5 % High 50-70 The [facility] Comment on above: Order Comment: No: D o not add to previous draw Performed By: #### 5 0103 ####[facility] [place] [address], [facility] PLAT CNT 320 Thou/mm3 Normal 100-400 The [facility] Comment on above: Order Comment: No: D o not add to previous draw Performed By: #### 5 0103 ####[facility] [facility].[address] WBC (Leukocytes) 12.3 Thou/mm3 High 4.0-10.0 The [facility] Comment on above: Order Comment: No: D o not add to previous draw Performed By: #### 5 0103 ####[facility] [facility].[address] HEMOGLOBINon 12-17-2016 Hemoglobin mass conc (Bld) 12.5 g/dL Low 13.9-16.3 The [facility] Comment on above: Order Comment: No: D o not add to previous draw Performed By: #### 5 0103 ####[address] POC GLUCOSE LABon 12-17-2016 Glucose mass conc 179 mg/dL High 70-100 The [facility] Comment on above: Performed By: #### 5 0103 ####[address] Glucose mass conc 183 mg/dL High 70-100 The [facility] Comment on above: Performed By: #### 5 0103 ####[address] PROTHROMBIN TIMEon 7 INR Coag RelTime (PPP) 1.15 {INR} Normal 0.91-1.16 The [facility] Comment on above: Order Comment: [...] OF ACTION, CLINICALEFFECTIVENESS, AND OPTIMAL THERAPEUTIC RANGE. [id number];108:231S-246S. Performed By: #### 5 0103 ####[facility] [place] [address], [facility] Prothrombin time (PT) Coag time (PPP) 14.8 s Normal 12.3-14.8 The [facility] Comment on above: Order Comment: No: D o not add to previous draw Result Comment: ALL RESULTS MUST BE INTERPRETED WITH RESPECT TO BLOOD DRAWING ARTIFACTOR DILUTION ERROR OF ANTICOAGULANT AT THE TIME OF SAMPLING. Performed By: #### 5 0103 ####[facility] [place] [address], [facility] POC GLUCOSE LABon 12-16-2016 Glucose mass conc 391 mg/dL High 70-100 The [facility] Comment on above: Performed By: #### 5 0103 ####[facility] [facility] [address], [facility] Glucose mass conc 160 mg/dL High 70-100 The [facility] Comment on above: Performed By: #### 5 0103 ####[facility] [facility] [address], [facility] Glucose mass conc 141 mg/dL High 70-100 The [facility] Comment on above: Performed By: #### 8 5499 ####[facility] [place] [address], [place] PORTABLE HIP RIGHT 1 OR 2 VW S WITH PELVISon 12-16-2016 PORTABLE HIP RIGHT 1 OR 2 VWS WITH PELVIS [facility] [address]qt[address]dpaf[address] [place] [address] P atient Name: KWABENA AKERS : 1950Sex: MAge: Race: WhiteMRN: [id number]. Location: OUTPPatient Status: OVisit #: [id number] Date: 12/16/2016 11:40:00 AMCompleted Date: 12/16/2016 12:02 PMRequesting Provider: ZACHERY LOOMIS Attending Provider: ONEIL WILLIAMSON Report Copy To: Signs & Symptoms: Pain ( specify Location)History: Patient history not availableComments: Hardware EvaluationExam: PORTABLE HIP RIGHT 1 OR 2 VWS WITH PELVISAccession #: [id number] ======PORTABLE HIP RIGHT 1 OR 2 VWS [...] arthroplasty. Electronically signed by:Connor Pinedo. Transcribed by: [email or web address], User Resident: Electronically Signed by: CONNOR PINEDO @ 12/16/2016 01:09 PM Normal The [facility] Comment on above: Order Comment: Hardw are Evaluation RBC'S 2 UNITSon 12-16-2016 CROSSMATCH INTERP 1 COMP Normal The [facility] Comment on above: Performed By: #### 5 0103 ####[facility] [place] [address], [facility] CROSSMATCH INTERP 2 COMP Normal The [facility] Comment on above: Performed By: #### 5 0103 ####[facility] [place] [address], [facility] PRODUCT CODE 1 E0336 Normal The [facility] Comment on above: Performed By: #### 5 0103 ####[facility] [place] [address], [facility] PRODUCT CODE 2 E0336 Normal The [facility] Comment on above: Performed By: #### 5 0103 ####[facility] [place] [address], [place] PRODUCT STATUS 1 RE Normal The [facility] Comment on above: Result Comment: Resu lt changed by IF on 12/19/2016 07:07. The previous value was XM. Performed By: #### 5 0103 ####[facility] [facility] [address], [facility] PRODUCT STATUS 2 RE Normal The [facility] Comment on above: Result Comment: Resu lt changed by IF on 12/19/2016 07:07. The previous value was XM. Performed By: #### 5 0103 ####[facility] [place] [address], [place] UNIT ABO 1 A Normal The [facility] Comment on above: Performed By: #### 5 0103 ####[facility] [place] [address], [place] UNIT ABO 2 A Normal The [facility] Comment on above: Performed By: #### 5 0103 ####[facility] [facility] UNIT ID 1 [id number] Normal The [facility] Comment on above: Performed By: #### 5 0103 ####[facility] [facility] UNIT ID 2 [id number] Normal The [facility] Comment on above: Performed By: #### 5 0103 ####[facility] [facility].[address] UNIT RH 1 Positive Normal The [facility] Comment on above: Performed By: #### 5 0103 ####[facility] [facility].[address] UNIT RH 2 Positive Normal The [facility] Comment on above: Performed By: #### 5 0103 ####[facility] [facility].[address] APTTon 12-02-2016 aPTT 26.0 s Normal 25.0-35.0 [facility] Comment on above: Result Comment: ALL [...] THIS PURPOSE. Performed By: #### 5 6101, [id number] ####[facility] [facility].[address] BASIC METABOLIC PANELon 10-1 Calcium 9.7 mg/dL Normal 8.6-10.3 The [facility] Comment on above: Performed By: #### 0 0071 ####[facility] [facility].[address] Chloride 101 mmol/L Normal 98-107 The [facility] Comment on above: Performed By: #### 0 0071 ####[facility] [facility] [address], [facility] CO2 23 mmol/L Normal 21-31 The [facility] Comment on above: Performed By: #### 0 0071 ####[facility] [place] [address], [facility] Creatinine 0.75 mg/dL Normal 0.70-1.30 The [facility] Comment on above: Performed By: #### 0 0071 ####[place] [id number] [facility] [address], [facility] eGFR (black) mL/min/{1.73_m2} Normal >[address] [facility] Comment on above: Performed By: #### 0 0071 ####[facility] [facility] [address], [facility] eGFR (non-black) mL/min/{1.73_m2} Normal >60 [facility] Comment on above: Performed By: #### 0 0071 ####[place] [id number] [facility] [address], [facility] Glucose mass conc 173 mg/dL High 70-100 The [facility] Comment on above: Performed By: #### 0 0071 ####[facility] [place] [address], [facility] Potassium molar conc 4.0 mmol/L Normal 3.5-5.1 The [facility] Comment on above: Performed By: #### 0 0071 ####[facility] [place] [address], [facility] Sodium 137 mmol/L Normal 136-145 The [facility] Comment on above: Performed By: #### 0 0071 ####[facility] [facility].[address] Urea nitrogen 14 mg/dL Normal 7-25 [facility] Comment on above: Performed By: #### 0 0071 ####[place] [address] [facility].[address] CBC COMPLETE BLOOD COUNTon Erythrocyte distribution width Auto Ratio (RBC) 14.5 % Normal 11.5-16.9 The [facility] Comment on above: Performed By: #### 5 0608 ####[place] [address] [facility].[address] Erythrocytes (RBC) 5.39 mill/mm3 Normal 4.30-5.90 The [facility] Comment on above: Performed By: #### 5 0608 ####[address] Hematocrit (HCT) 46.4 % Normal 39.0-55.0 [facility] Comment on above: Performed By: #### 5 0608 ####[address] Hemoglobin mass conc (Bld) 15.3 g/dL Normal 13.9-16.3 [facility] Comment on above: Performed By: #### 5 0608 ####[address] MCH 28.4 pg Normal 24.0-32.0 The [facility] Comment on above: Performed By: #### 5 0608 ####[place] [address] [facility].[address] MCHC mass conc (RBC) 33.0 g/dL Normal 32.0-36.0 The [facility] Comment on above: Performed By: #### 5 0608 ####[address] [place] [address], [facility] MCV 86.1 fL Normal 80.0-100.0 The [facility] Comment on above: Performed By: #### 5 0608 ####[facility] [facility].[address] PLAT CNT 414 Thou/mm3 High 100-400 The [facility] Comment on above: Performed By: #### 5 0608 ####[facility] [facility].[address] WBC (Leukocytes) 10.0 Thou/mm3 Normal 4.0-10.[address] [facility] Comment on above: Performed By: #### 5 0608 ####[facility] [facility].[address] PROTHROMBIN TIMEon 1012-201 7 INR Coag RelTime (PPP) 1.08 {INR} Normal 0.91-1.16 [facility] Comment on above: Result Comment: ACCC P RECOMMENDED INR FOR WARFARIN THERAPY CONDITION INRPROPHYLAXIS OF VENOUS THROMBOSIS 2-3(HIGH-RISK SURGERY)TREATMENT OF VENOUS THROMBOSIS 2-3TREATMENT OF PULMONARY EMBOLISM 2-3PREVENTION OF SYSTEMIC EMBOLISM: 2-3 ACUTE MYOCARDIAL INFARCTION TISSUE HEART VALVES VALVULAR HEART DISEASE ATRIAL FIBRILLATION RECURRENT SYSTEMIC EMBOLISMMECHANICAL HEART VALVE 2.5-3.5 FROM: ORAL ANTICOAGULANTS. MECHANISM OF ACTION, CLINICALEFFECTIVENESS, AND OPTIMAL THERAPEUTIC RANGE. [id number];108:231S-246S. Performed By: #### 5 6101, [id number] ####[facility] [facility].[address] Prothrombin time (PT) Coag time (PPP) 14.0 s Normal 12.3-14.8 The [facility] Comment on above: Result Comment: ALL RESULTS MUST BE INTERPRETED WITH RESPECT TO BLOOD DRAWING ARTIFACTOR DILUTION ERROR OF ANTICOAGULANT AT THE TIME OF SAMPLING. Performed By: #### 5 6101, 88414 ####[facility] TYPE AND CROSSMATCHon 2016 ABO INTERPRETATION A Normal The [facility] Comment on above: Performed By: #### 6 2594 ####[address] ANTIBODY SCREEN Negative Normal [facility] Comment on above: Performed By: #### 6 2594 ####[facility] RH INTERPRETATION Positive Normal The [facility] Comment on above: Performed By: #### 6 2594 ####[address] *MRSA/MSSA CULTUREon 017 *MRSA/MSSA CULTURE Clinical Report: (D) Specimen: NASAL SWAB Collected: 10/12/2016 12:17 Status: Final Last Updated: 10/13/2016 14:36 CULT RES (Final) No Methicillin Resistant Staphylococcus aureus Isolated ISO (Final) No Methicillin Sensitive Staphylococcus aureus Isolated Normal The [facility] Comment on above: Performed By: #### 3 1302 ####[facility] [facility].[address] CBC W/DIFFon 10-12-2016 Basophils Auto #/vol (Bld) 0.6 % Normal 0.0-2.0 The [facility] Comment on above: Performed By: #### 5 0103 ####[facility] [facility] [place] [address], [facility] Eosinophils/100 leukocytes 5.6 % High 0.0-5.0 The [facility] Comment on above: Performed By: #### 5 0103 ####[facility] [facility].[address] Erythrocyte distribution width Auto Ratio (RBC) 14.7 % Normal 11.5-16.9 The [facility] Comment on above: Performed By: #### 5 0103 ####[facility] [facility] [place] [address], [facility] Erythrocytes (RBC) 5.59 mill/mm3 Normal 4.30-5.90 The [facility] Comment on above: Performed By: #### 5 0103 ####[facility] [facility].[address] Hematocrit (HCT) 47.7 % Normal 39.0-55.0 [facility] Comment on above: Performed By: #### 5 0103 ####[facility] Hemoglobin mass conc (Bld) 15.9 g/dL Normal 13.9-16.3 [facility] Comment on above: Performed By: #### 5 0103 ####[facility] [facility] [place] [address], [facility] Lymphocytes/100 leukocytes 18.5 % Low 20.0-40.0 The [facility] Comment on above: Performed By: #### 5 0103 ####[facility] MCH 28.4 pg Normal 24.0-32.0 [facility] Comment on above: Performed By: #### 5 3 ####[facility] [facility] [place] [address], [facility] MCHC mass conc (RBC) 33.3 g/dL Normal 32.0-36.0 [facility] Comment on above: Performed By: #### 5 0103 ####[facility] MCV 85.4 fL Normal 80.0-100.0 [facility] Comment on above: Performed By: #### 5 0103 ####[facility] [facility] [place] [address], [facility] METHOD Normal The [facility] Comment on above: Result Comment: Auto mated differential performedNormal RBC Morphology Performed By: #### 5 0103 ####[facility] [facility].[address] MONOS 7.8 % Normal 2-8 [facility] Comment on above: Performed By: #### 5 0103 ####[facility] [facility].[address] Neutrophils/100 leukocytes 67.5 % Normal 50-70 [facility] Comment on above: Performed By: #### 5 0103 ####[facility] [facility] [place] [address], [facility] PLAT CNT 399 Thou/mm3 Normal 100-400 The [facility] Comment on above: Performed By: #### 5 0103 ####[facility] [facility].[address] WBC (Leukocytes) 11.0 Thou/mm3 High 4.0-10.[address] [facility] Comment on above: Performed By: #### 5 0103 ####[facility] [facility].[address] HEMOGLOBIN A1Con 10-12-2016 Glucose mass conc 180 mg/dL High 70-126 [facility] Comment on above: Performed By: #### 4 6446 ####[facility] [facility].[address] Hemoglobin A1c/Hemoglobin.tot al mass fraction (Bld) 7.9 % High 4.0-6.0 The [facility] Comment on above: Performed By: #### 4 6447 ####[facility] [place] [address] HIP RIGHT 1 OR 2 VWS WITH PE LVISon 10-12-2016 HIP RIGHT 1 OR 2 VWS WITH PELVIS [facility] [address] [place] [address] P atient Name: KWABENA AKERS : 1950Sex: MAge: Race: WhiteMRN: [id number]. Location: 84Patient Status: OVisit #: [id number] Date: 10/12/2016 10:45:00 AMCompleted Date: 10/12/2016 10:48 AMRequesting Provider: ONEIL WILLIAMSON Attending Provider: ONEIL WILLIAMSON Report Copy To: Signs & Symptoms: M16.11 Unilateral primary osteoarthritis, right hip [id number]: AthenaComments: , , , Ordering Provider - ONEIL WILLIAMSON MD , Rendering Provider - ONEIL WILLIAMSON MD , Exam: HIP RIGHT 1 OR 2 VWS WITH PELVISAccession #: [id number] ======HIP RIGHT 1 OR 2 VWS WITH [...] moderate. Electronically signed by:Geovanny Traylor. Transcribed by: [email or web address], User Resident: Electronically Signed by: GEOVANNY TRAYLOR @ 10/12/2016 11:55 AM Normal The [facility] Comment on above: Order Comment: , , = ========= , Ordering Provider - ONEIL WILLIAMSON MD , Rendering Provider - ONEIL WILLIAMSON MD , Vital Signs Date Time Vital Sign Value Performing Clinician Chelly bhatt 01-17-2019 11:40-0500 Body Temperature 97.11 [degF] [address] 01-17-2019 11:40-0500 BP Diastolic 97 mm[Hg] [address] 01-17-2019 11:40-0500 BP Systolic 162 mm[Hg] [address] 01-17-2019 11:40-0500 Pulse (Heart Rate) 96 /min [address] 01-17-2019 11:40-0500 Respiratory Rate 20 /min [address] 01-15-2019 11:10-0500 BP Diastolic 81 mm[Hg] [address] 01-15-2019 11:10-0500 BP Systolic 164 mm[Hg] [address] 01-15-2019 10:45-0500 Body Temperature 98.1 [degF] [address] 01-15-2019 10:45-0500 Pulse (Heart Rate) 97 /min [address], [place] 01-15-2019 10:45-0500 Respiratory Rate 20 /min [address] [facility] [place] 01-14-2019 10:10-0500 Body Temperature 97.81 [degF] [address] [facility], [place] 01-14-2019 10:10-0500 BP Diastolic 60 mm[Hg] [address] , [place] 01-14-2019 10:10-0500 BP Systolic 165 mm[Hg] [address] , [place] 01-14-2019 10:10-0500 Pulse (Heart Rate) 92 /min [address], [place] 01-14-2019 10:10-0500 Pulse Oximetry 96 % [address] 01-14-2019 10:10-0500 Respiratory Rate 16 /min [address] [facility] [place] 01-13-2019 10:50-0500 BP Diastolic 77 mm[Hg] [address] , [place] 01-13-2019 10:50-0500 BP Systolic 154 mm[Hg] [address] , [place] 01-13-2019 10:50-0500 Pulse (Heart Rate) 83 /min [address], [place] 01-13-2019 10:18-0500 Body Temperature 98.4 [degF] [address] [facility] [place] [place] 01-13-2019 10:18-0500 Pulse Oximetry 99 % [address] 01-13-2019 10:18-0500 Respiratory Rate 20 /min [address] [facility] [place] 01-12-2019 17:45-0500 BP Diastolic 59 mm[Hg] [facility] [place] [facility] [place] 01-12-2019 17:45-0500 BP Systolic 137 mm[Hg] [facility] [place] 01-12-2019 17:45-0500 Pulse (Heart Rate) 75 /min [facility] [place] 01-12-2019 17:45-0500 Pulse Oximetry 95 % [facility] [place] 01-12-2019 17:45-0500 Respiratory Rate 18 /min [facility], [place] 01-12-2019 17:18-0500 Body Temperature 97.59 [degF] Jessica Cooper [facility], [place] 01-12-2019 14:45-0500 BMI (Body Mass Index) 58.18 kg/m2 Jessica Ruff [facility], [place] 01-12-2019 14:45-0500 Body weight 178.72 kg Jesscia Cooper [facility] , [place] 01-12-2019 14:45-0500 Height 175.3 cm [facility] [place] Encounters Encounter Date Encounter Type Care Provider Facility Start: 03-31-2023 End: 04-03-2023 ambulatory MARISOL [facility] Start: 03-31-2023 End: 04-02-2023 Subsequent hospital visit by physician Marisol Carr MD Work Phone: [facility] Laboratory Comment on above: Hyperlipidemia, unsp ecified hyperlipidemia type; Type 2 diabetes mellitus with hyperglycemia, with long-term current use of insulin (HCC); Essential hypertension Abnormal x-ray; Lung density on x-ray Start: 02-09-2023 End: 02-10-2023 ambulatory TAY Delano SHARDA [facility] Start: 01-26-2023 End: 01-27-2023 ambulatory MARISOL Ledesmay [facility] Start: 01-24-2023 End: 01-25-2023 ambulatory MAIRSOL Ledesmay [facility] Start: 01-20-2023 End: 01-21-2023 ambulatory MARISOL Ledesmay [facility] Start: 01-17-2023 End: 01-18-2023 ambulatory MARISOL Ledesmay [facility] Start: 01-12-2023 End: 01-13-2023 ambulatory MARISOL ALEIDA [facility] Start: 01-10-2023 End: 01-11-2023 ambulatory MARISOL Ledesmay [facility] Start: 01-07-2023 End: 01-08-2023 ambulatory MARISOL Ruff [facility] Start: 01-04-2023 End: 01-05-2023 ambulatory MARISOL Ruff [facility] Start: 12-22-2022 End: 12-25-2022 ambulatory MARISOL Ruff [facility] Start: 10-27-2022 End: 10-28-2022 ambulatory MARISOL Ruff [facility] Start: 09-16-2022 End: 09-17-2022 ambulatory MARISOL Ruff [facility] Start: 04-29-2022 End: 04-30-2022 ambulatory PHIL Gaxiola MOLINA [facility] Start: 04-29-2022 End: 04-29-2022 Subsequent hospital visit by physician Phil Molina MD Work Phone: [facility] Laboratory Comment on above: Essential hypertensi on Start: 07-21-2021 End: 07-21-2021 Subsequent hospital visit by physician Phil Molina MD Work Phone: [facility] Comment on above: Left lower quadrant abdominal pain Start: 06-01-2021 End: 06-01-2021 Patient encounter procedure Phil Molina MD Work Phone: [facility] Start: 06-01-2021 End: 06-01-2021 Subsequent hospital visit by physician Phil Molina MD Work Phone: [facility] Comment on above: Encounter for prosta te cancer screening; Encounter for Medicare annual wellness exam; Type 2 diabetes mellitus without complication, without long-term current use of insulin (HCC) Start: 01-08-2020 End: 01-08-2020 Subsequent hospital visit by physician Phil Molina [facility] Comment on above: Encounter for prosta te cancer screening; Encounter for Medicare annual wellness exam; Type 2 diabetes mellitus without complication, without long-term current use of insulin (HCC) Start: 01-17-2019 End: 01-17-2019 Subsequent hospital visit by physician [facility] Op Treatment Rm 03 [facility] Start: 01-15-2019 End: 01-15-2019 Subsequent hospital visit by physician [facility] Op Treatment Rm 03 [facility] Start: 01-14-2019 End: 01-14-2019 Subsequent hospital visit by physician [facility] Comment on above: Arrived Start: 01-13-2019 End: 01-13-2019 Subsequent hospital visit by physician [facility] Op Treatment [facility] Comment on above: Arrived Start: 01-12-2019 End: 01-12-2019 Patient encounter procedure JESSICA COOPER [facility] Start: 01-12-2019 End: 01-12-2019 Subsequent hospital visit by physician Jessica Cooper Work Phone: [facility] [place] Comment on above: Gluteal abscess (Sue herber Dx) Start: 09-22-2017 End: 09-22-2017 Evaluation and management of inpatient PHIL MOLINA [facility] Start: 02-03-2017 End: 02-04-2017 Ambulatory ONEIL WILLIAMSON Facility:[facility] Start: 01-04-2017 End: 01-05-2017 Ambulatory ONEIL J GEING Facility:[facility] Start: 12-28-2016 End: 12-29-2016 Ambulatory ONEIL J GEHLING Facility:[facility] Start: 12-16-2016 End: 12-17-2016 Evaluation and management of inpatient ONEIL J GEHLING Facility:[facility] Start: 10-12-2016 End: 10-13-2016 Ambulatory ONEIL Sb GETERRELLING Facility:[facility] Procedures Date Procedure Procedure Detail Performing [...] SIGNS JESSICA GARCIALUISMain PERALTAAleisha Start: 01-12-2019 VOID DIRECTOR APPAREL TO OR JESSICABILL COOPER Start: 01-12-2019 Gluc bld gluc mntr d ev cleared fda spec home use Jessica Clevealndinealeisha Work Phone: Start: 01-12-2019 Blood count complete [...] 11-25-2026 Screening for malignant neoplasm of colon [facility] Start: 03-09-2026 Hepatitis C screen Hepatitis C screen [employer] [place] Comment on above: Postponed from 1950 (Unavailable) Start: 03-09-2026 Hepatitis C screening Hepatitis C screen [employer] Comment on above: Postponed from 1950 (Unavailable) Postponed from 06/03 (Unavailable) Start: 08-05-2024 Colon cancer screen colonoscopy Colon cancer screen colonoscopy [facility] [place] Start: 08-05-2024 Screening for malignant neoplasm of colon [employer] Start: 03-31-2024 GFR test (Diabetes, CKD 3-4, OR last GFR 15-59) GFR test (Diabetes, CKD 3-4, OR last GFR 15-59) [facility] Start: 03-31-2024 Lipid panel Lipids [facility] Start: 03-18-2024 Depression Monitoring Depression Monitoring [facility] Start: 02-10-2024 Hemoglobin A1c measurement A1C test (Diabetic or Prediabetic) [facility] Start: 10-28-2023 Urine screening for protein Diabetic Alb to Cr ratio (uACR) test [facility] Start: 05-04-2023 End: 05-04-2023 Patient encounter procedure [facility] Comment on above: emg rue Start: 04-30-2023 GFR test (Diabetes, CKD 3-4, OR last GFR 15-59) GFR test (Diabetes, CKD 3-4, OR last GFR 15-59) [facility] Start: 04-28-2023 End: 04-28-2023 Patient encounter procedure 04/28/2023 10:45 AM EST Office Visit [facility] [address] [place] [address] [address] [place], [place] [id number] Marisol Carr MD [address] [place] [address] [address] [place] [address] 3 [place] [facility] Comment on above: 3 [place] Start: 03-25-2023 Depression Monitoring Depression Monitoring [facility] Start: 03-25-2023 Hemoglobin A1c measurement A1C test (Diabetic or Prediabetic) [facility] Start: 01-17-2023 Annual Wellness Visit (Medicare) Annual Wellness Visit (Medicare) [facility] Start: 07-15-2022 End: 07-15-2022 Patient encounter procedure 07/15/2022 Office Visit Primary Care Marisol Carr MD [address] [place] [address] [address] [place] [address] [facility] Start: 06-01-2022 Creatinine measurement Creatinine monitoring [facility] Start: 06-01-2022 Lipid panel Lipids [facility] Start: 06-01-2022 Potassium monitoring Potassium monitoring [facility] Start: 06-01-2022 Prostate specific antigen measurement Prostate Specific Antigen (PSA) Screening or Monitoring [facility] Start: 05-26-2022 Annual Wellness Visit (AWV) Annual Wellness Visit (AWV) [facility] Start: 05-25-2022 Depression Monitoring Depression Monitoring [facility] Start: 10-06-2021 End: 10-06-2021 Patient encounter procedure 10/06/2021 Office Visit Gastroenterology Mateo Melanie Marcia [address] [facility] [place] [address] [facility] Start: 08-27-2021 End: 08-27-2021 Patient encounter procedure 08/27/2021 Office Visit Primary Care Phil Molina MD [address] [place] [address] [id number] [facility] Start: 08-24-2021 Hemoglobin A1c measurement A1C test (Diabetic or Prediabetic) [facility] Start: 08-15-2021 Diabetic foot examination Diabetic foot exam [facility] Start: 02-11-2021 COVID-19 Vaccine (4 - Booster for Moderna series) COVID-19 Vaccine (4 - Booster for Moderna series) [facility] Start: 01-07-2021 HbA1c (Bld) [Mass fraction] A1C test (Diabetic or Prediabetic) [facility] [place] Start: 01-07-2021 Lipid panel Lipid screen [facility] Start: 01-07-2021 Urine screening for protein [facility] Start: 04-08-2020 End: 04-08-2020 Office Visit 04/08/2020 Office Visit Family Medicine Phil Molina MD [address] [id number] Phil Molina MD Start: 04-14-2019 A1C test (Diabetic or Prediabetic) A1C test (Diabetic or Prediabetic) [facility] [place] Start: 03-31-2019 [object Object] Diabetic foot exam [facility] [place] Start: 03-31-2019 Diabetic foot examination Diabetic foot exam [facility], [place] Start: 03-31-2019 Diabetic microalbuminuria test Diabetic microalbuminuria test [facility] [place] Start: 01-30-2019 End: 01-30-2019 Office Visit 01/30/2019 Office Visit General Surgery Jessica Cooper MD [address] [place] [address] [address] [place] [address] [phone] [facility] Start: 01-22-2019 End: 01-22-2019 Appointment [...] Visit General Surgery Jessica Cooper MD [address] [facility] [address] [place] [address] [phone] [facility] Start: 01-14-2019 End: 01-14-2019 Appointment 01/14/2019 Appointment Infusion Therapy [facility] Start: 11-23-2018 Pneumococcal 65+ years Vaccine (2 of 2 - PPSV23) Pneumococcal 65+ years Vaccine (2 of 2 - PPSV23) [place] Start: 10-22-2018 Influenza vaccination Flu vaccine (#1) [place] Start: 09-22-2018 Creatinine measurement Creatinine monitoring [place], [place] Start: 09-22-2018 Creatinine monitoring Creatinine monitoring [place], [place] Start: 09-22-2018 Lipid panel Lipid screen [place] Start: 09-22-2018 Lipid screen Lipid screen [place] Start: 09-22-2018 Potassium monitoring Potassium monitoring [place] Start: 07-19-2018 Annual Wellness Visit (AWV) Annual Wellness Visit (AWV) [place] Start: 02-05-2016 Diabetic retinal exam Diabetic retinal exam [facility] Start: 02-05-2016 Glaucoma screening Diabetic retinal exam [facility] Start: 2012 Respiratory Syncytial Virus (RSV) or age 60 yrs+ (1 - 1-dose 60+ series) Respiratory Syncytial Virus (RSV) or age 60 yrs+ (1 - 1-dose 60+ series) [facility] Start: 2002 Shingles Vaccine (1 of 2) Shingles Vaccine (1 of 2) [facility] Start: 1997 Screening for malignant neoplasm of colon [facility] Start: 06-04-1971 DTaP/Tdap/Td vaccine (1 - Tdap) DTaP/Tdap/Td vaccine (1 - Tdap) [facility] Start: 06-04-1963 DTaP/Tdap/Td vaccine (1 - Tdap) DTaP/Tdap/Td vaccine (1 - Tdap) [place] [employer] [place] Comment on above: ONE TIME for 1 Occurrences starting 12/23 End: 01-12-2019 Blood glucose - POCT Blood glucose - POCT Point of Care Testing Routine One Time for 1 Occurrences starting 01/12/2019 until 01/12/2019 [place] Comment on above: One Time for 1 Occurrences starting 12/23 until 01/12/2019 Initiate Oxygen Ther apy Protocol Initiate Oxygen Therapy Protocol Respiratory Care Routine Daily until discontinued starting 01/12/2019 [place] Comment on above: Daily until discontinued starting 2018 Immunizations Immunization Date Immunization Notes Care Provider Fa [facility] 11-27-2021 Influenza, FLUAD, (a ge 65 y+), Adjuvanted, 0.5mL Phil Molina MD Work Phone: [facility] Work Phone: 11-20-2020 Influenza, Quadv, adjuvanted, 65 yrs +, IM, PF (Fluad) Phil Molina MD Work Phone: [facility] 05-14-2020 COVID-19, Moderna, Primary or Immunocompromised, PF, 100mcg/0.5mL Phil Molina MD Work Phone: [facility] Work Phone: 04-16-2020 COVID-19, Moderna, Primary or Immunocompromised, PF, 100mcg/0.5mL Phil Molina MD Work Phone: [facility] 01-08-2020 pneumococcal polysaccharide vaccine, [address] [facility] 11-19-2019 Influenza, Quadv, adjuvanted, 65 yrs +, IM, PF (Fluad) [facility] 02-22-2019 influenza virus vacc ine, unspecified formulation [facility] , [place] 02-22-2019 influenza, injectabl e, quadrivalent, contains preservative [facility], [place] 11-23-2017 pneumococcal conjuga te vaccine, [address] [facility] 11-23-2017 Seasonal trivalent influenza vaccine, adjuvanted, preservative free [facility] 12-17-2016 influenza virus vacc ine, unspecified formulation [facility] 12-08-2015 Influenza Vaccine, unspecified formulation [facility] [place] 12-09-2014 influenza virus vacc ine, unspecified formulation [facility] [place] 10-18-2013 influenza virus vacc ine, unspecified formulation [facility] 12-11-2012 influenza virus vacc ine, unspecified formulation [facility] [place] 03-13-2012 pneumococcal polysaccharide vaccine, [address] [facility] 03-03-2010 influenza virus vacc ine, whole virus [facility] Payers Date Payer Category Payer Unknown [id number] 2017 Medicare [id number] 2017 Medicare MEDICARE MEDICAR E PART A AND B xxxxxxxxxxx 2017-Present [phone] [place] [address] xxxxxxxxxxx [id number] 2017 Unknown [employer] SUPP xxxxxx-xx 2017-Present [phone] ATTN INDIVIDUAL CLAIMS [id number] [employer] [place] [address] xxxxxx-xx [id number] 2017 Unknown [id number] 2014 Medicare [id number] 1950 Unknown [id number] 1952 Unknown [id number] [id number]. 1952 Unknown [id number] [id number] 1952 Unknown [id number] [id number] 1952 Unknown [id number] [id number] 1952 Unknown [id number] [id number] 1952 Unknown [id number] [id number] 1952 Unknown [id number] [id number] 1952 Unknown [id number] [id number] 1952 Unknown [id number] [id number] 1952 Unknown [id number] [id number] 1952 Unknown [id number] [id number] 1952 Unknown [id number] [id number] 1952 Unknown [id number] [id number] 1952 Unknown [id number] 1952 Unknown [id number] [id number] Unknown [id number] Social History Date Type Detail Facility Start: 01-12-2019 End: 10-06-2021 Tobacco smoking status NHIS Former smoker [facility] Start: 02-21-1959 End: 02-21-1979 History of tobacco use Current smoker [place] Start: 02-21-1959 End: 02-21-1979 History of tobacco use Cigarette Smoker [place] Start: 01-12-2019 End: 03-25-2022 Cigarettes smoked current (pack per day) - Reported [place] Start: 01-12-2019 End: 03-18-2023 Alcohol intake Current non-drinker of alcohol (finding) [place] Start: 03-25-2011 Alcohol Comment rare [place], [place] Start: 1950 Sex Assigned At Not on file [place] Start: 01-08-2020 End: 10-06-2021 Tobacco use and exposure Never used [place] Start: 05-25-2021 End: 03-25-2022 History SDOH [facility] Frequency [facility] Work [facility]: Start: 05-25-2021 History SDOH Physica l Activity DPW 0 [facility] Work [facility]: Start: 08-15-2020 End: 03-25-2022 History SDOH Financial 5 [facility] Work [facility]: Start: 08-15-2020 End: 03-25-2022 History SDOH Transport Med 2 [employer] Work Phone: Start: 05-25-2021 End: 03-25-2022 Alcohol Use Disorder Identification Test - Consumption [AUDIT-C] [facility] How often to you hav e a drink containing alcohol? Never [facility] Average Number of Drinks Not on file [facility] (I/We) worried wheth er (my/our) food would run out before (I/we) got money to buy more. Never true [facility] At any time in the p ast 12 months, were you homeless or living in senior living [including now]? No [facility] Medical Equipment Procedure Code Equipment Code Equipment Origin al Text Equipment Identifier Dates 1 strip by Other route 2 times daily [id number] Start: 04-03-2018 1 each by In Vit ro route 2 times daily. As needed. [id number] each by Does n ot apply route 2 times daily [id number] Start: 04-03-2018 1 strip by Other route 2 times daily [id number] Start: 06-13-2020 1 strip by Other route 2 times daily [id number] Start: 07-02-2021 Use needle to in ject Levemir in to the skin every night. [id number] Start: 06-25-2021 1 strip by Other route 2 times daily [id number] Start: 08-26-2022 Use needle to in ject Levemir in to the skin every night. [id number] Start: 11-12-2022 1 each by Does n ot apply route daily [id number] Start: 01-20-2023 Goals Date Patient Goal Desired Activity /State Comment on above: I will try to decrea se the high sugar foods in my diet. Barriers: lack of motivation Plan for overcoming my barriers: Patient will participate in care coordination. Patient will review diet with piano teacher. Confidence: 07/31 Anticipated Goal Completion Date: 02/21/2020 Comment on above: Formatting of this n ote might be different from the original. I will take my medication as directed. I will notify my provider of any problems with medications, like adverse effects or side effects. I will notify my provider/Grease Remover if I am unable to afford my [...] of insulin (HCC) documented in this encounter [employer] Phone: Evaluation note Note Date & Type Note Facility Evaluation note Diagnosis Left lower quadrant abdominal pain documented in this encounter [employer] Phone: Evaluation note Note Date & Type Note Facility Evaluation note Diagnosis Essential hypertension Unspecified essential hypertension documented in this encounter [employer] Phone: Evaluation note Note Date & Type Note Facility Evaluation note Diagnosis Hyperlipidemia, unspecified hyperlipidemia type Type 2 diabetes mellitus with hyperglycemia, with long-term current use of insulin (HCC) Essential hypertension Unspecified essential hypertension documented in this encounter [facility] Evaluation note Note Date & Type Note Facility Evaluation note Diagnosis Abnormal x-ray Other nonspecific (abnormal) findings on radiological and other examinations of body structure Lung density on x-ray Other diseases of lung, not elsewhere classified documented in this encounter [facility] Summary Purpose Family History No Family History Records FoundNo Family History Records FoundNo Family History Records FoundNo Family History Records Found Advance Directives No Advanced Directives Records FoundDocuments on File Type Date Recorded Patient Planning Division Superintendent Expl anation Advance Directives and Living Will Power of Supervisor [employer] Latest Code Status on File Code Status Date Activated Date Inactivated Comments Full Code 01/12/2019 4:48 PM Full Code 01/12/2019 4:11 PM 01/12/2019 4:48 PM Full Code 09/22/2017 6:50 AM 09/22/2017 3:18 PM Full Code 09/22/2017 5:54 AM 09/22/2017 6:50 AM Full Code 09/13/2016 7:35 AM 09/15/2016 6:35 PM Documents on File Type Date Recorded Patient Planning Division Superintendent Expl anation Advance Directives and Living Will Power of Supervisor [employer] Latest Code Status on File Code Status Date Activated Date Inactivated Comments Full Code 01/12/2019 4:48 PM 01/12/2019 8:21 PM Full Code 01/12/2019 4:11 PM 01/12/2019 4:48 PM Full Code 09/22/2017 6:50 AM 09/22/2017 3:18 PM Full Code 09/22/2017 5:54 AM 09/22/2017 6:50 AM Full Code 09/13/2016 7:35 AM 09/15/2016 6:35 PM Documents on File Type Date Recorded Patient Planning Division Superintendent Expl anation ACP-Advance Directive ACP-Power of Supervisor [employer] Healthcare Agents on File Name Relationship Healthcare [...] Agents on File Name Relationship Healthcare Agent Mirnaia p Communication Stormy Akers Spouse Primary Decision Bryant pascual Discharge Instructions * Instructions* Nuvia Gutierres RN - 01/12/2019 Return to [place] ED daily at 10 am for dressing change: Remove old dressing, bacitracin ointment, nu-gauze, then fluff outer dressing. Leave sutured alejo drain in place. Take bag of dressing supplies with you to the ED when you go. May change outer dressing at home if it becomes saturated before next dressing change. Follow up with Dr. Cooper in [place] on Tuesday. Call Tuesday to make appointment [phone]. documented in this encounter* Discharge Instr - [...] [address] [place] [address] Relation: Spouse Past Surgical History: Past Surgical [...] yrs and older) 11/23/2017 Pneumococcal Conjugate 13-valent ([id number]) 11/23/2017 Pneumococcal Polysaccharide ([id number]) 03/13/2012 Active Problems: Patient Active Problem List Diagnosis Code Essential hypertension I10 Type 2 diabetes mellitus without complication, without long-term current use of insulin ([facility]) E11.9 Hyperlipidemia E78.5 Acute pain of right hip M25.551 Primary osteoarthritis of right hip M16.11 Osteoarthritis of knee M17.10 Degenerative arthritis of hip M16.9 Depression, major, in remission ([facility]) F32.5 Numbness R20.0 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 Facial droop R29.810 Diabetes mellitus due to underlying condition with hyperglycemia, without long- term current use of insulin ([facility]) E08.65 Morbid obesity with BMI of 50.0-59.9, adult ([facility]) E66.01, Z68.43 Gluteal abscess L02.31 Isolation/Infection: Isolation No Isolation Patient Infection Status None to display Nurse Assessment: Last Vital Signs: BP (!) 154/77 Pulse 83 Temp 98.4 F (36.9 C) (Tympanic) Resp 20 SpO2 99% Last documented pain score (0-10 scale): Last Weight: Wt Readings from Last 1 Encounters: 01/12/19 (!) 394 lb (178.7 kg) Mental Status: {IP PT MENTAL STATUS:09158} IV Access: { JESSICA IV ACCESS:088016934} Nursing Mobility/ADLs: Walking {CHP DME ADLs:711798405} Transfer {CHP DME ADLs:993653290} Bathing {CHP DME ADLs:869640755} Dressing {CHP DME ADLs:335017497} Toileting {CHP DME ADLs:620151760} Feeding {CHP DME ADLs:247667782} [employer] Grader {P DME ADLs:115509722} Med Delivery { JESSICA MED Delivery:040067372} Wound Care Documentation and Therapy: Elimination: Continence: Bowel: {YES / NO:} Bladder: {YES / NO:} Urinary Catheter: {Urinary Catheter:830437699} Colostomy/Ileostomy/Ileal Conduit: {YES / NO:07142} Date of Last BM: No intake or output data in the 24 hours ending 01/13/19 1418 No intake/output data recorded. Safety Concerns: { JESSICA Safety Concerns:462276428} Impairments/Disabilities: { JESSICA Impairments/Disabilities:497122821} Nutrition Therapy: Current Nutrition Therapy: { JESSICA Diet List:027723877} Routes of Feeding: {CHP DME Other Feedings:341526303} Liquids: {Employment Supervisor liquid thickness:11062} Daily Fluid Restriction: {CHP DME Yes amt example:878805443} Last Modified Barium Swallow with Video (Video Swallowing Test): {Done Not Done Date:211719958} Treatments at the Time of Hospital Discharge: Respiratory Treatments: Oxygen Therapy: {Therapy; copd oxygen:46282} Ventilator: { CC Vent List:746280903} Rehab Therapies: {THERAPEUTIC INTERVENTION:1153196927} Weight Bearing Status/Restrictions: {[facility] Weight Bearin} Other Medical Equipment (for information only, NOT a DME order): {EQUIPMENT:744741258} Other Treatments: Patient's personal belongings (please select all that are sent with patient): {[facility] DME Belongings:192523515} RN SIGNATURE: {Esignature:117619678} CASE MANAGEMENT/SOCIAL WORK SECTION Inpatient Status Date: Readmission Risk Assessment Score: Readmission Risk Risk of Unplanned Readmission: 0 Discharging to Facility/ Agency Name: Address: Phone: Fax: Dialysis Facility (if applicable) Name: Address: Dialysis Schedule: Phone: Fax: [employer] Department Manager/Electrical Maintenance Supervisor signature: {Esignature:176498979} PHYSICIAN SECTION Prognosis: {Prognosis:5680919195} Condition at Discharge: { Patient Condition:648407102} Rehab Potential (if transferring to Rehab): {Prognosis:0158581834} Recommended Labs or Other Treatments After Discharge: Physician Certification: I certify the above information and transfer of Kwabena Akers is necessary for the continuing treatment of the diagnosis listed and that he requires {Admit to Appropriate Level of Care:26387} for {GREATER/LESS:988770744} 30 days. Update Admission H&P: {CHP DME Changes in HandP:716740450} PHYSICIAN SIGNATURE: {Esignature:306368126} * Additional Instructions* Ava Enriquez RN - [...] [address] [place] [id number] Relation: Spouse Past Surgical History: Past Surgical [...] yrs and older) 11/23/2017 Pneumococcal Conjugate 13-valent ([id number]) 11/23/2017 Pneumococcal Polysaccharide ([id number]) 03/13/2012 Active Problems: Patient Active Problem List Diagnosis Code Essential hypertension I10 Type 2 diabetes mellitus without complication, without long-term current use of insulin (HCC) E11.9 Hyperlipidemia E78.5 Acute pain of right hip M25.551 Primary osteoarthritis of right hip M16.11 Osteoarthritis of knee M17.10 Degenerative arthritis of hip M16.9 Depression, major, in remission ([facility]) F32.5 Numbness R20.0 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 Facial droop R29.810 Diabetes mellitus due to underlying condition with hyperglycemia, without long- term current use of insulin ([facility]) E08.65 Morbid obesity with BMI of 50.0-59.9, adult ([facility]) E66.01, Z68.43 Gluteal abscess L02.31 Isolation/Infection: Isolation [...] MENTAL STATUS:} IV Access: { JESSICA IV ACCESS:239711158} Nursing Mobility/ADLs: Walking {CHP DME ADLs:245178510} Transfer {CHP DME ADLs:019015248} Bathing {CHP DME ADLs:273064603} Dressing {CHP DME ADLs:109274564} Toileting {CHP DME ADLs:359653314} Feeding {P DME ADLs:738298956} Scholastic Aptitude Test Grader {P DME ADLs:146672000} Med Delivery { JESSICA MED Delivery:638722185} Wound Care Documentation and Therapy: Elimination: Continence: Bowel: {YES / NO:} Bladder: {YES / NO:} Urinary Catheter: {Urinary Catheter:177306953} Colostomy/Ileostomy/Ileal Conduit: {YES / NO:} Date of Last BM: No intake or output data in the 24 hours ending 01/14/19 1045 No intake/output data recorded. Safety Concerns: { JESSICA Safety Concerns:045618984} Impairments/Disabilities: { JESSICA Impairments/Disabilities:378617587} Nutrition Therapy: Current Nutrition Therapy: { JESSICA Diet List:932500914} Routes of Feeding: {CHP DME Other Feedings:451888887} Liquids: {Employment Supervisor liquid thickness:26424} Daily Fluid Restriction: {CHP DME Yes amt example:818331619} Last Modified Barium Swallow with Video (Video Swallowing Test): {Done Not Done Date:} Treatments at the Time of Hospital Discharge: Respiratory Treatments: Oxygen Therapy: {Therapy; copd oxygen:47539} Ventilator: { CC Vent List:626317365} Rehab Therapies: {THERAPEUTIC INTERVENTION:1511158255} Weight Bearing Status/Restrictions: { CC Weight Bearin} Other Medical Equipment (for information only, NOT a DME order): {EQUIPMENT:936573324} Other Treatments: Patient's personal belongings (please select all that are sent with patient): {[facility] DME Belongings:936199552} RN SIGNATURE: {Esignature:115850019} CASE MANAGEMENT/SOCIAL WORK SECTION Inpatient Status Date: Readmission Risk Assessment Score: Readmission Risk Risk of Unplanned Readmission: 0 Discharging to Facility/ Agency Name: Address: Phone: Fax: Dialysis Facility (if applicable) Name: Address: Dialysis Schedule: Phone: Fax: [employer] 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 [...] CT CHEST W CONTRAST Marisol Carr MD [address] [place], [place] [address] [place] [address] Referral ID Status Reason Start Date Expiration Date V isits Requested Visits Authorized [id number] Not Required - RTA 03/18/2023 03/17/2024 1 1 Additional Source Comments (unrecognized sect ion and content) No Status Records FoundNo Status Records FoundNo Status Records FoundNo Status Records Found INFORMATION SOURCE (unrecogn ized section and content) DATE CREATED AUTHOR 08/16/2017 [facility] DATE CREATED AUTHOR AUTHOR'S ORGANIZ ATION 11/18/2017 [facility] DATE CREATED AUTHOR AUTHOR'S ORGANIZ ATION 01/17/2019 [facility] DATE CREATED AUTHOR AUTHOR'S ORGANIZ ATION 04/04/2023 [facility]ital Reason for Visit (unrecogniz ed section and content) Status Reason Specialty Diagnoses / Procedures Referre d By Contact Referred To Contact Diagnoses nancy rectal abscess Procedures [place] I&D RECTAL SUBMUCOSAL ABSCESS RECTAL PERIRECTAL INCISION AND DRAINAGE Jessica Cooper MD [address] [place] [address] [address] [place] [address] [facility] Specialty Diagnoses / Procedures Referred By Contac t Referred To Contact Radiology Diagnoses Abnormal x-ray Lung density on x-ray Procedures CT CHEST W CONTRAST Marisol Carr MD [address] [place], [place] [address] [place] [address] Referral ID Status Reason Start Date Expiration Date V isits Requested Visits Authorized [id number] Not Required - RTA 03/18/2023 03/17/2024 1 1 Care Teams (unrecognized sec tion and content) Crm Marketing Specialist Relationship Specialty Start Date End Date Phil Molina MD [address] [place] [address] [address] [place] [address] PCP - General 03/22/11 Crm Marketing Specialist Relationship Specialty Start Date End Date Phil Molina MD [address] [place] [address] [address] [place] [address] PCP - General 03/22/11 Crm Marketing Specialist Relationship Specialty Start Date End Date Phil Molina MD [address] [place] [address] [address] [place] [address] PCP - General 03/22/11 Crm Marketing Specialist Relationship Specialty Start Date End Date Marisol Carr MD [address] [place] [address] [id number] PCP - General Family Medicine 06/15/22 Crm Marketing Specialist Relationship Specialty Start Date End Date Marisol Carr MD [address] [place] [address] [address] [place], [place] [id number] PCP - General Family Medicine 06/15/22 FOR [...] BE BASED ON THE PRIMARY CLINICAL RECORDS. [facility] Email Data Source [facility]. provides no warranty or guarantee of the accuracy or completeness of information in this document.
--- NOTE | 2023-04-21 08:13 | CA_ITS ---
Patient Name: DAPHNEY AKERS MR#: [id number] : 1950 Exam Date: 04/21/2023 Ordering Doctor: CIRA QUIJANO M.D. ECHOCARDIOGRAM REPORT PROCEDURE: CA ECHO W/ CON INDICATIONS: Dyspnea COMPARISON: None. DESCRIPTION: COMPLETE ECHOCARDIOGRAM Real-time transthoracic echocardiography with 2D, M-mode, spectral and color flow Doppler performed. QUALITY: Lumason contrast was administered due to suboptimal imaging for left ventricular opacification to improve delineation of endocardial boarders. Height 70in, weight 409lbs, BSA 2.83m2 LEFT VENTRICLE: Normal chamber size. Mildly increased left ventricular wall thickness. LV EF: Global left ventricular systolic function is normal. Calculated left ventricular ejection fraction is 57%. No wall motion abnormalities. DIASTOLIC: Normal diastolic function. ATRIAL SEPTUM: Inadequately seen. LEFT ATRIUM: Mild dilatation. An echo dense, circular mass measuring 1.9 x 2.3 cm near the base of the posterior mitral leaflet is seen. Differential diagnosis includes tumour, thrombus, or vegetation. Further imaging (e.g., SHANKAR, CMR or cardiac CT) recommended. RIGHT ATRIUM: Normal chamber size.. RIGHT VENTRICLE: Normal chamber size. Normal right ventricular systolic function. TRICUSPID VALVE: Normal mobility and thickness. No stenosis with trivial regurgitation. No evidence of pulmonary hypertension. RVSP 25mmHg MITRAL VALVE: Normal mobility and thickness. No evidence of mitral valve stenosis. There is no mitral annular calcification. No mitral regurgitation. AORTIC VALVE: Normal trileaflet appearance. No visible sclerosis. Normal leaflet mobility. No evidence of aortic valve stenosis. No aortic regurgitation. AORTIC ROOT: Normal diameter and appearance. PULMONIC VALVE: Normal thickness and mobility. No stenosis. No regurgitation. PERICARDIUM: No evidence of pericardial effusion. IVC: Not well visualized. CONCLUSION: 1. Global left ventricular systolic function is normal; visually estimated ejection fraction is 55 to 60% 2. Normal right ventricular size and systolic function 3. The left atrium is mildly dilated 4. There is an echodense, circular mass measuring 1.9 x 2.3 cm near the base of the posterior mitral leaflet; differential diagnosis includes tumor, thrombus, or vegetation-further imaging is recommended 5. No significant valvular abnormalities Adult Echocardiography Procedure Report Left Ventricle LVEDD (3.7 - 5.6 cm): 5.59 cm LVESD (2.2 - 4.0 cm): 3.97 cm LVIVS thickness (0.6 - 1.2 cm): 0.99 cm LVPW thickness (0.5 - 1.0 cm): 1.26 cm e': 0.08 m/s E - e': 7.04 LVOT Max Gradient: 1.39 mm[Hg] LVOT Area (cm2): 0.59 m/s Peak Velocity (LVOT): 0.59 m/s Mean Velocity (LVOT): 0.42 m/s LVOT Diameter 2.42 cm Left Ventricular Ejection Fraction: 57.21 % Left Atrium LA Volume Index (2D A2C): 41.77 ml/m2 Left Atrium Systolic Dimension: 3.89 cm Mitral Valve MV E to A Ratio: 0.92 Mitral Valve A-Wave Peak Velocity: 0.58 m/s Mitral Valve E-Wave Peak Velocity: 0.54 m/s Right Ventricle RV Internal Diastolic Dimension: 3.31 cm Aorta AO Root Diam: 3.43 cm Ascending Ao Diam: 3.14 cm Aortic Valve AoV Area (Peak Saulo): 1.91 cm2, 1.91 cm2 AoV Area (VTI): 2.26 cm2, 2.26 cm2 Peak Velocity(Antegrade Flow): 1.42 m/s Peak Gradient(Antegrade Flow): 8.01 mm[Hg] Mean Velocity(Antegrade Flow): 0.97 m/s Mean Gradient(Antegrade Flow): 4.32 mm[Hg] Velocity Time Integral: 27.25 cm Tricuspid Valve Peak Velocity (Regurgitant Flow): 2.28 m/s, 1.88 m/s, 2.35 m/s Pulmonic Valve Peak Velocity: 1.17 m/s Peak Gradient: 5.75 mm[Hg], 5.16 mm[Hg] Right Atrium Right Atrium Systolic Pressure: 52.01 ml, 52.01 ml Dictated by: German Jansen M.D. on 04/21/2023 at 09:37 Approved by: German Jansen M.D. on 04/21/2023 at 09:46
[2023-04-21] MEDS: SULFUR HEXAFLUORIDE MICROSPHR 25 MG (5ML VIAL) IV (08:35)
== END 2023-04-21 06:58 | disposition home or self-care (01) ==
LOC: CARD 06:57
PROVIDERS: Visit Provider Internal Medicine Cardiovascular Disease
DX: Z01.810 Encounter for preprocedural cardiovascular examination (principal); R06.09 Other forms of dyspnea
CPT/HCPCS: C8929; Q9950

== ENCOUNTER 2023-11-22 08:24 | Outpatient (OUT) | payer MEDICARE, OTHER, SELFPAY ==
--- NOTE | 2023-11-22 08:42 | ECG_ITS ---
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
--- OUTSIDE RECORDS SUMMARY | 2023-11-22 08:48 | XMS_ITS | CCD ---
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 Role Phone ONEIL WILLIAMSON Unavailable Unavailable GEHLINGONEIL J Unavailable Unavailable GEHLINGONEIL J Unavailable Unavailable CRENSHAW, DIPAKKUMAR Unavailable Unavailable GEHLINGONEIL J Unavailable Unavailable GEHLINGONEIL J Unavailable Unavailable CRENSHAW, DIPAKKUMAR Unavailable Unavailable CRENSHAW, DIPAKKUMAR Unavailable Unavailable CA Unavailable Unavailable GEHLINGONEIL J Unavailable Unavailable GEHLINGONEIL J Unavailable Unavailable GEHLINGONEIL J Unavailable Unavailable CRENSHAW, DIPAKKUMAR Unavailable Unavailable CRENSHAW, DIPAKKUMAR Unavailable Unavailable GEHLINGONEIL J Unavailable Unavailable GEHLINGONEIL J Unavailable Unavailable GEHLINGONEIL J Unavailable Unavailable CRENSHAW, DIPAKKUMAR Unavailable Unavailable GEHLINGONEIL J Unavailable Unavailable GEHLINGONEIL J Unavailable Unavailable CRENSHAW, DIPAKKUMAR Unavailable Unavailable CRENSHAW, DIPAKKUMAR Unavailable Unavailable CRENSHAW, DIPAKKUMAR P Unavailable Unavailable QUEEN, ANEESH MUMTAZ Unavailable Unavaila ble QUEEN, ANEESH MUMTAZ Unavailable Unavaila ble QUEEN, ANEESH MUMTAZ Unavailable Unavaila ble Crenshaw, Dipakkumar P Primary Care Provider JESSICA COOPER P Admitting Unavailable JESSICA COOPER P Attending Unavailable CRENSHAW, DIPAKKUMAR P Primary Care Unavailable Crenshaw, Dipakkumar P Primary Care Provider Phil Crenshaw MD P Primary Care Provider Phil Crenshaw MD P Primary Care Provider Marisol Carr MD Primary Care Provider Cira Quijano MD Unavailable LOULOU KEY Attending Unavailable CRENSHAW, DIPAKKUMAR P Referring Unavailable CRENSHAW, DIPAKKUMAR P Primary Care Unavailable LOULOU KEY Attending Unavailable CRENSHAW, DIPAKKUMAR P Referring Unavailable CRENSHAW, DIPAKKUMAR P Primary Care Unavailable ALGHOTHANI, MOHAMAD Referring Unavailable IACOB, MARISOL Attending Unavailable IACOB, MARISOL Primary Care Unavailable IACOB, MARISOL Referring Unavailable IACOB, MARISOL Referring Unavailable IACOB, MARISOL Primary Care Unavailable IACOB, MARISOL Referring Unavailable IACOB, MARISOL Primary Care Unavailable IACOB, MARISOL Attending Unavailable IACOB, MARISOL Primary Care Unavailable IACOB, MARISOL Referring Unavailable TAY COX Referring Unavailable IACOB, MARISOL Primary Care Unavailable IACOB, MARISOL Referring Unavailable IACOB, MARISOL Primary Care Unavailable IACOB, MARISOL Referring Unavailable IACOB, MARISOL Primary Care Unavailable IACOB, MARISOL Referring Unavailable IACOB, MARISOL Attending Unavailable IACOB, MARISOL Primary Care Unavailable IACOB, MARISOL Referring Unavailable IACOB, MARISOL Primary Care Unavailable IACOB, MARISOL Attending Unavailable IACOB, MARISOL Primary Care Unavailable IACOB, MARISOL Referring Unavailable IACOB, MARISOL Primary Care Unavailable IACOB, MARISOL Referring Unavailable IACOB, MARISOL Attending Unavailable IACOB, MARISOL Referring Unavailable IACOB, MARISOL Primary Care Unavailable IACOB, MARISOL Attending Unavailable IACOB, MARISOL Referring Unavailable IACOB, MARISOL Primary Care Unavailable IACOB, MARISOL Primary Care Unavailable IACOB, MARISOL Attending Unavailable IACOB, MARISOL Referring Unavailable IACOB, MARISOL Primary Care Unavailable IACOB, MARISOL Attending Unavailable IACOB, MARISOL Referring Unavailable IACOB, MARISOL Primary Care Unavailable IACOB, MARISOL Attending Unavailable IACOB, MARISOL Primary Care Unavailable IACOB, MARISOL Referring Unavailable ALGHOTHANI, MOHAMAD Admitting Unavailable ALGHOTHANI, MOHAMAD Attending Unavailable TONY JONES Referring Unavailable ALGHOTHANI, MOHAMAD Attending Unavailable ALGHOTHANI, MOHAMAD Attending Unavailable ALGHOTHANI, MOHAMAD Referring Unavailable ALGHOTHANI, MOHAMAD Referring Unavailable Medications Current Medications Medication Drug Class(es) Dates Sig (Normalized) Sig (Original) [id number] 200 actuat albuterol 0.09 mg/actuat metered dose [...] without long-term current use of insulin (HCC) 1 Units by Does not apply route 2 times daily 1 kit 0 08/26/2022 Active Start: 03-31-2018 Blood Glucose Monitoring Suppl w/Device KIT Indications: Diabetes mellitus due to underlying condition with hyperglycemia, without long-term current use of insulin (HCC) 1 Units by Does not apply route [...] 06-17-2021 take 1 tablet by gallo th twice [...] complication, with long-term current use of insulin ([facility]) Inject 30 Units into the skin nightly 5 pen 3 08/28/2021 Active Start: 06-25-2021 insulin detemi r (LEVEMIR FLEXTOUCH) 100 UNIT/ML injection pen Indications: Type 2 diabetes mellitus without complication, without long-term current use of insulin (HCC) Inject 20 Units into the skin nightly [...] 01-12-2019 morphine (PF) injection 1 mg nystatin 932347 unt/ml / triamcinolone acetonide 1 mg/ml topical cream (6 sources) Polyene Antifungal, Corticosteroid Start: 11-17-2016 nystatin-triamcin olone (MYCOLOG II) 327111-3.1 UNIT/GM-% cream Apply topically 2 times daily [...] pain; Translations: [Left lower quadrant pain] Episodic Coronary atherosclerosis and other heart disease (2 sources) Atherosclerotic heart disease of [place] coronary artery without angina pectoris; Translations: [Atherosclerotic heart disease of [place] coronary artery without angina pectoris] Onset: 07-26-2023 Chronic Diabetes mellitus with complications (8 sources) Type 2 diabetes mellitus; Translations: [Type 2 diabetes mellitus with hyperglycemia] Onset: 07-15-2022 03-31-2023 Chronic Diabetes mellitus without complication (20 sources) Type 2 diabetes mellitus without complications; Translations: [Type 2 diabetes mellitus without complication] Onset: 12-09-2014 09-23-2017 Chronic Disorders of lipid metabolism (13 sources) Hyperlipidemia; Translations: [Hyperlipidemia, unspecified] Onset: 03-09-2016 09-22-2017 Chronic E Codes: Fall (1 source) Fall from motorized mobility scooter, initial encounter; Translations: [Fall from motorized mobility scooter, initial encounter] Onset: 07-30-2023 Episodic Esophageal disorders (1 source) Gastro-esophageal reflux disease without esophagitis; Translations: [GASTRO-ESOPHAGEAL REFLUX DISEASE WITHOUT ESOPHAGITIS] Onset: 12-16-2016 Chronic Essential hypertension (15 sources) Essential (primary) hypertension; Translations: [Essential hypertension] Onset: 03-31-2014 09-22-2017 Chronic Heart valve disorders (2 sources) Other rheumatic mitral valve diseases; Translations: [Other rheumatic mitral valve diseases] Onset: 08-11-2023 Chronic Mood disorders (20 sources) Major depression [...] JOINT REPLACEMENT SURGERY] Onset: 12-28-2016 Chronic Other aftercare (3 sources) 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; Translations: [snf (current) use of insulin] Onset: 10-20-2022 Episodic Other connective tissue disease (2 sources) Presence of artificial hip joint, bilateral; Translations: [Presence of left artificial hip joint] Onset: 12-16-2016 Chronic Other injuries and conditions due to external causes (1 source) Unspecified injury of right shoulder and upper arm, initial encounter; Translations: [Unspecified injury of right shoulder and upper arm, initial encounter] Onset: 07-30-2023 Episodic Other lower respiratory disease (3 sources) Radiologic increased density of lung; Translations: [Other disorders of lung] Onset: 03-18-2023 03-18-2023 Episodic Other nervous system disorders (2 [...] nose; Translations: [Epistaxis] Onset: 03-18-2023 03-18-2023 Episodic Spondylosis; intervertebral disc disorders; other back problems (1 source) Other intervertebral disc displacement, lumbar region; Translations: [Other intervertebral disc displacement, lumbar region] Onset: 07-21-2022 Chronic Spondylosis; intervertebral disc disorders; other back problems (2 sources) Spinal stenosis, lumbar region with neurogenic claudication; Translations: [Backache] Onset: 08-25-2022 Episodic Superficial injury; contusion (1 source) Abrasion, right lower leg, initial encounter; Translations: [Abrasion, right lower leg, initial encounter] Onset: 07-30-2023 Episodic Unclassified (2 sources) Unknown / UNK(Unknown) Onset: 10-12-2016 Unclassified (1 source) 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; Translations: [USP (CURRENT) USE OF ORAL HYPOGLYCEMIC DRUGS] Onset: [...] 09-16-2022 09-16-2022 Episodic Other aftercare (3 sources) snf (current) use of aspirin; Translations: [Other residential (current) drug therapy] Onset: 10-12-2016 Episodic Other and unspecified benign neoplasm (3 sources) Polyp of colon; Translations: [Polyp of colon] Onset: 11-25-2021 11-25-2021 Episodic Other connective tissue disease (11 sources) Weakness of face muscles; Translations: [Facial weakness] Resolved: 08-15-2020 09-22-2017 Episodic Other lower respiratory disease (1 source) Other disorders of lung; Translations: [Other disorders of lung] Onset: 03-18-2023 Episodic Other lower respiratory disease (2 sources) Other forms of dyspnea; Translations: [Other forms of dyspnea] Onset: 04-15-2023 Episodic Other nervous system disorders (2 sources) [...] conditions (not mental disorders or infectious disease) (8 sources) Patient encounter status; Translations: [Encounter for [...] Test Name Value Interpretation Reference Range Facility Office Visiton 09-30-2023 Follow-up visit [id number] AydeKwabena L 1950 M Date Provider Department Center 09/30/2023 [id number] QUIJANO ELIOT [facility] Family History Problem Relation Age of Onset Other Father Family Status - Relation Status Age at Father Level of Service:48311 [place] OFFICE/OUTPATIENT ESTABLISHED LOW MDM 20 MIN Normal [facility] 36on 08-23-[address] Quijano- Patient underwent heart cath on 08/11/2023 which revealed non-obstructive coronary arteries. Patient may proceed with carpal tunnel surgery at moderate risk, with no further cardiovascular testing needed at this time. [facility] ---- -------- Attestation signed by Cira Quijano MD at 08/11/2023 11:42 AM H and P reviewed. No significant changes. Patient presenting with abnormal stress. Plan to proceed with cath. Procedure was explained to patient at length and in detail. Risks, benefits, and alternatives were discussed. Patient is informed that risks of this invasive procedure include, but are not limited to, bleeding, hematoma, kidney injury, CVA, arrythmia requiring defibrillation, need for emergent open heart surgery, and . Patient understands these risks and wishes to proceed. Cira Quijano MD -------- History Of Present Illness Kwabena Messer is a 73 y.o. male presenting for planned coronary angiogram. Past medical history of hypertension, hyperlipidemia, morbid obesity was seen in the cardiology clinic initially for preoperative risk stratification for carpal tunnel surgery. Patient was found to have limitation in his metabolic equivalents on regular basis. Further work up with echo showed preserved EF 55-60%, and a suspected mass on his mitral valve so he was referred for MRI. MRI did not show mass in his mitral valve leaflets. Stress test was positive for small apical reversible perfusion defect in the LAD distribution. Patient presented today for coronary angiography and SHANKAR. Past Medical History He has a past medical history of Abnormal ECG, Diabetes mellitus ([facility]), Hyperlipidemia, Hypertension, and Sleep apnea. Surgical History He has a past surgical history that includes Replacement total hip lateral position. Social History He reports that he has quit smoking. His smoking use included cigarettes. He has never used smokeless tobacco. He reports that he does not currently use alcohol. No history on file for drug use. Family History Family History Problem Relation Name Age of Onset Other (defibrillator in situ) Father Allergies Patient has no known allergies. Medications Medications Prior to Admission Medication Sig Dispense Refill Last Dose amLODIPine (Norvasc) 5 mg tablet Take 5 mg by mouth in the morning. atorvastatin (Lipitor) 20 mg tablet Take 20 mg by mouth in the morning. celecoxib (CeleBREX) 100 mg capsule Take 100 mg by mouth in the morning and at bedtime. dulaglutide (Trulicity) 3 mg/0.5 mL pen injector Inject 3 mg under the skin. DULoxetine (Cymbalta) [address] capsule gabapentin (Neurontin) 600 mg tablet Take 600 mg by mouth 3 times a day. glipiZIDE XL (Glucotrol XL) 10 mg 24 hr tablet Take 1 tablet by mouth in the morning and at bedtime. HYDROcodone-acetaminophe n ([place]) 5-325 mg tablet Take 1 tablet by mouth every 6 (six) hours if needed for severe pain (8-10 pain score). insulin detemir (Levemir) 100 unit/mL (3 mL) injection pen Inject 110 Units under the skin at bedtime. losartan-hydrochlorothia zide (Hyzaar) 100-12.5 mg tablet Take 1 tablet by mouth in the morning. metFORMIN (Glucophage) 1,000 mg tablet mirtazapine (Remeron) 30 mg tablet pioglitazone (Actos) 15 mg tablet Take 1 tablet by mouth in the morning. spironolactone (Aldactone) 25 mg tablet Take 1 tablet by mouth in the morning. venlafaxine (Effexor) 75 mg tablet Take 1 tablet by mouth in the morning and at bedtime. Review of Systems Constitutional: Negative for activity change and appetite change. HENT: Negative for congestion, facial swelling and hearing loss. Eyes: Negative for pain and discharge. Respiratory: Negative for apnea, cough, choking, chest tightness, shortness of breath, wheezing and stridor. Cardiovascular: Negative for chest pain and leg swelling. Gastrointestinal: Negative for abdominal distention, abdominal pain, blood in stool and diarrhea. Endocrine: Negative for cold intolerance and heat intolerance. Genitourinary: Negative for dysuria, flank pain and frequency. Musculoskeletal: Negative for arthralgias, back pain and gait problem. Skin: Negative for color change and pallor. Allergic/Immunologic: Negative. Neurological: Negative for dizziness and facial asymmetry. Hematological: Negative. Negative for adenopathy. Does not bruise/bleed easily. Psychiatric/Behavioral: Negative for agitation and behavioral problems. Last Recorded Vitals Visit Vitals Smoking Status Former Physical Exam Vitals reviewed. Constitutional: Appearance: Normal appearance. He is normal weight. HENT: Head: Normocephalic. Nose: Nose normal. Mouth/Throat: Mouth: Mucous membranes are moist. Pharynx: Oropharynx is clear. Eyes: Pupils: Pupils are equal, round, and reactive to light. Cardiovascular: Rate and Rhythm: Normal rate and regular rhythm. Pulses: Normal pulses. Pulmonary: Effort: Pulmonary effort is normal. Breath sounds: Normal breath sounds. Abdominal: General: Abdomen is flat. Bowel sounds a (more content not included)... Normal [facility] HP I personally saw and examined the patient on the same date of service as resident/fellow Dr boyd. I discussed the findings and therapeutic plan with the resident/fellow Dr Boyd. I agree with the documentation, except for any edits/updates below. History Of Present Illness Kwabena Messer is a 73 y.o. male presenting with 72-year-old male patient with history hypertension, hyperlipidemia, morbid obesity was referred for cardiology clinic initially for preoperative risk stratification for carpal tunnel surgery, he was found to have limitation in his metabolic equivalents on regular basis, during evaluation found to have suspected mass on his mitral valve so he was referred for MRI MRI did not show mass in his mitral valve leaflets. LVEF was 60% with mild biatrial enlargement patient presented today for coronary angiography, SHANKAR. Past Medical History He has a past medical history of Abnormal ECG, Diabetes mellitus ([facility]/HCC), Hyperlipidemia, Hypertension, and Sleep apnea. Surgical History He has a past surgical history that includes Replacement total hip lateral position. Social History He reports that he has quit smoking. His smoking use included cigarettes. He has never used smokeless tobacco. He reports that he does not currently use alcohol. No history on file for drug use. Family History Family History Problem Relation Name Age of Onset Other (defibrillator in situ) Father Allergies Patient has no known allergies. Medications (Not in a hospital admission) Review of Systems Constitutional: Negative for activity change and appetite change. HENT: Negative for congestion, facial swelling and hearing loss. Eyes: Negative for pain and discharge. Respiratory: Negative for apnea, cough, choking, chest tightness, shortness of breath, wheezing and stridor. Cardiovascular: Negative for chest pain and leg swelling. Gastrointestinal: Negative for abdominal distention, abdominal pain, blood in stool and diarrhea. Endocrine: Negative for cold intolerance and heat intolerance. Genitourinary: Negative for dysuria, flank pain and frequency. Musculoskeletal: Negative for arthralgias, back pain and gait problem. Skin: Negative for color change and pallor. Allergic/Immunologic: Negative. Neurological: Negative for dizziness and facial asymmetry. Hematological: Negative. Negative for adenopathy. Does not bruise/bleed easily. Psychiatric/Behavioral: Negative for agitation and behavioral problems. Last Recorded Vitals Visit Vitals BP 154/58 Pulse 70 Resp 16 SpO2 98% Smoking Status Former Physical Exam Vitals reviewed. Constitutional: Appearance: Normal appearance. He is normal weight. HENT: Head: Normocephalic. Nose: Nose normal. Mouth/Throat: Mouth: Mucous membranes are moist. Pharynx: Oropharynx is clear. Eyes: Pupils: Pupils are equal, round, and reactive to light. Cardiovascular: Rate and Rhythm: Normal rate and regular rhythm. Pulses: Normal pulses. Pulmonary: Effort: Pulmonary effort is normal. Breath sounds: Normal breath sounds. Abdominal: General: Abdomen is flat. Bowel sounds are normal. Palpations: Abdomen is soft. Musculoskeletal: General: Swelling present. Normal range of motion. Cervical back: Normal range of motion. Right lower leg: Edema present. Left lower leg: Edema present. Skin: General: Skin is warm and dry. Capillary Refill: Capillary refill takes less than 2 seconds. Coloration: Skin is not jaundiced. Findings: No bruising. Neurological: General: No focal deficit present. Mental Status: He is alert. Mental status is at baseline. Psychiatric: Mood and Affect: Mood normal. Relevant Lab Results No results found for: NA , K , CL , CO2 , BUN , CREATININE , GLUCOSE , CALCIUM , ANIONGAP , EGFR , BCR Relevant Imaging Results ECG 12 lead Sinus rhythm with occasional Premature ventricular complexes Left axis deviation Abnormal ECG No previous ECGs available Assessment/Plan Active Problems: There are no active Hospital Problems. Assessment: -Abnormal echodensity on mitral valve for further evaluation -Hypertension -Diabetes - morbid obesity - Plan: Transesophageal echo Normal [facility] [place] 08-11-2023 CHUCHO RN educated pt on d/ c instructions. RN encouraged pt to voice any questions or concerns. Pt verbalizes no questions or concerns at this time. Normal [facility] NURSNOTE Patient passed bedsi de swallow study. Normal [facility] XR HUMERUS RIGHT (MIN 2 VIEW S)on 07-30-2023 XR HUMERUS RIGHT (MIN 2 VIEWS) EXAMINATION: TWO XRAY VIEWS OF THE RIGHT SHOULDER; TWO XRAY VIEWS OF THE RIGHT HUMERUS 07/30/2023 11:41 am COMPARISON: None. HISTORY: ORDERING SYSTEM PROVIDED HISTORY: pain TECHNOLOGIST PROVIDED HISTORY: pain FINDINGS: Mineralization appears normal. The soft tissues are un. There are mild osteophytes at the acromioclavicular joint. No fracture, dislocation or focal bone lesion is identified. IMPRESSION: 1. No acute fracture or dislocation associated with the right shoulder or humerus. 2. Mild degenerative osteophytes at the right acromioclavicular joint. Interpreted by: Francis Leyva MD Signed by: Francis Leyva MD 07/30/23 Final result Normal [facility] XR SHOULDER RIGHT (MIN 2 VIE WS)on 07-30-2023 XR SHOULDER RIGHT (MIN 2 VIEWS) EXAMINATION: TWO XRAY VIEWS OF THE RIGHT SHOULDER; TWO XRAY VIEWS OF THE RIGHT HUMERUS 07/30/2023 11:41 am COMPARISON: None. HISTORY: ORDERING SYSTEM PROVIDED HISTORY: pain TECHNOLOGIST PROVIDED HISTORY: pain FINDINGS: Mineralization appears normal. The soft tissues are un. There are mild osteophytes at the acromioclavicular joint. No fracture, dislocation or focal bone lesion is identified. IMPRESSION: 1. No acute fracture or dislocation associated with the right shoulder or humerus. 2. Mild degenerative osteophytes at the right acromioclavicular joint. Interpreted by: Francis Leyva MD Signed by: Francis Leyva MD 07/30/23 Final result Normal [facility] CBC with Diffon 07-29-2023 Abs. Basophil 0.10 k/uL Normal 0.00-0.20 [facility] Comment on above: Performed By: #### G LYHGB #### [employer] [facility] [place] [address] Cleaner Assistant: Dexter Madera MD #### CDP, CP #### [address] [place], [place] [phone] Cleaner Assistant: Barak Garcia MD Abs.Imm.Granulocy te 0.03 k/uL Normal 0.00-0.30 [facility] Comment on above: Performed By: #### G LYHGB #### [address] [id number] Cleaner Assistant: Dexter Madera MD #### CDP, CP #### [address] [place] [id number] Cleaner Assistant: Barak Garcia MD Abs.Neutrophil (Seg) 6.45 k/uL Normal 1.50-8.10 [facility] Comment on above: Performed By: #### G LYHGB #### [address] [id number] Cleaner Assistant: Dexter Madera MD #### CDP, CP #### [address] [place] [id number] Cleaner Assistant: Barak Garcia MD Basophils/100 WBC (Bld) 1 % Normal 0-2 [facility] Comment on above: Performed By: #### G LYHGB #### [address] [id number] Cleaner Assistant: Dexter Madera MD #### CDP, CP #### [address] [place] [address] Cleaner Assistant: Barak Garcia MD Eosinophils (Bld) [#/Vol] 0.41 10*3/uL Normal 0.00-0.44 [facility] Comment on above: Performed By: #### G LYHGB #### [address] [id number] Cleaner Assistant: Dexter Madera MD #### CDP, CP #### [address] [place] [phone] Cleaner Assistant: Barak Garcia MD Eosinophils/100 WBC (Bld) 5 % High 1-4 [facility] Comment on above: Performed By: #### G LYHGB #### [address] [id number] Cleaner Assistant: Dexter Madera MD #### CDP, CP #### [address] [place], [place] [phone] Cleaner Assistant: Barak Garcia MD Erythrocyte distribution width (RBC) [Ratio] 14.2 % Normal 11.8-14.4 [facility] Comment on above: Performed By: #### G LYHGB #### [address] [id number] Cleaner Assistant: Dexter Madera MD #### CDP, CP #### [address] [place] [id number] Cleaner Assistant: Barak Garcia MD Hematocrit (Bld) [Volume fraction] 38.9 % Low 40.7-50.3 [facility] Comment on above: Performed By: #### G LYHGB #### [address] [id number] Cleaner Assistant: Dexter Madera MD #### CDP, CP #### [address] [place], [place] [phone] Cleaner Assistant: Barak Garcia MD Hemoglobin (Bld) [Mass/Vol] 12.6 g/dL Low 13.0-17.0 [facility] Comment on above: Performed By: #### G LYHGB #### [address] [address] Cleaner Assistant: Dexter Madera MD #### CDP, CP #### [address] [place] [address] Cleaner Assistant: Barak Garcia MD Immature granulocytes/100 WBC (Bld) 0 % Normal 0 [facility] Comment on above: Performed By: #### G LYHGB #### [address] [id number] Cleaner Assistant: Dexter Madera MD #### CDP, CP #### [address] [place] [phone] Cleaner Assistant: Barak Garcia MD Lymphocytes (Bld) [#/Vol] 1.37 10*3/uL Normal 1.10-3.70 [facility] Comment on above: Performed By: #### G LYHGB #### [address] [phone] Cleaner Assistant: Dexter Madera MD #### CDP, CP #### [address] [place] [phone] Cleaner Assistant: Barak Garcia MD Lymphocytes/100 WBC (Bld) 15 % Low 24-43 [facility] Comment on above: Performed By: #### G LYHGB #### [address] [address] [address] Cleaner Assistant: Dexter Madera MD #### CDP, CP #### [address] [place] [id number] Cleaner Assistant: Barak Garcia MD MCH (RBC) [Entitic mass] 28.4 pg Normal 25.2-33.5 [facility] Comment on above: Performed By: #### G LYHGB #### [address] [address] Cleaner Assistant: Dexter Madera MD #### CDP, CP #### [address] [place], [place] [id number] Cleaner Assistant: Barak Garcia MD MCHC (RBC) [Mass/Vol] 32.4 g/dL Normal 28.4-34.8 [facility] Comment on above: Performed By: #### G LYHGB #### [address] [address] Cleaner Assistant: Dexter Madera MD #### CDP, CP #### [address] [place] [id number] Cleaner Assistant: Barak Garcia MD MCV (RBC) [Entitic vol] 87.6 fL Normal 82.6-102.9 [facility] Comment on above: Performed By: #### G LYHGB #### [address] [address] Cleaner Assistant: Dexter Madera MD #### CDP, CP #### [address] [place] [id number] Cleaner Assistant: Barak Garcia MD Monocytes (Bld) [#/Vol] 0.66 10*3/uL Normal 0.10-1.20 [facility] Comment on above: Performed By: #### G LYHGB #### [address] [address] Cleaner Assistant: Dexter Madera MD #### CDP, CP #### [address] [place] [id number] Cleaner Assistant: Barak Garcia MD Monocytes/100 WBC (Bld) 7 % Normal 3-12 [facility] Comment on above: Performed By: #### G LYHGB #### [address] [address] Cleaner Assistant: Dexter Madera MD #### CDP, CP #### [address] [place] [id number] Cleaner Assistant: Barak Garcia MD Neutrophil (Seg) 72 % High 36-65 [facility] Comment on above: Performed By: #### G LYHGB #### [address] [place] [address] Cleaner Assistant: Dexter Madera MD #### CDP, CP #### [facility] [address] [place], [place] [phone] Cleaner Assistant: Barak Garcia MD NRBC Automated 0.0 per 100 WBC Normal 0.0 [facility] Comment on above: Performed By: #### G LYHGB #### [address] [address] Cleaner Assistant: Dexter Madera MD #### CDP, CP #### [facility] [address] [place] [address] Dr. [place], [place] [phone] Cleaner Assistant: Barak Garcia MD Platelet mean volume (Bld) [Entitic vol] 9.3 fL Normal 8.1-13.5 [facility] Comment on above: Performed By: #### G LYHGB #### [address] [address] Cleaner Assistant: Dexter Madera MD #### CDP, CP #### [address] [place], [place] [phone] Cleaner Assistant: Barak Garcia MD Platelets (Bld) [#/Vol] 356 10*3/uL Normal 138-453 [facility] Comment on above: Performed By: #### G LYHGB #### [address] [address] Cleaner Assistant: Dexter Madera MD #### CDP, CP #### [facility] [address] [place] [address] Dr[place], [place] [phone] Cleaner Assistant: Barak Garcia MD RBC (Bld) [#/Vol] 4.44 10*6/uL Normal 4.21-5.77 [facility] Comment on above: Performed By: #### G LYHGB #### [address] [place] [address] Cleaner Assistant: Dexter Madera MD #### CDP, CP #### [address] [place] [address] Cleaner Assistant: Barak Garcia MD WBC (Bld) [#/Vol] 9.0 10*3/uL Normal 3.5-11.3 [facility] Comment on above: Performed By: #### G LYHGB #### [address] [address] Cleaner Assistant: Dexter Madera MD #### CDP, CP #### [address] [place], [place] [phone] Cleaner Assistant: Barak Garcia MD Comp Metabolic Profon 2023 Albumin [Mass/Vol] 4.0 g/dL Normal 3.5-5.2 [facility] Comment on above: Performed By: #### G LYHGB #### [address] [address] Cleaner Assistant: Dexter Madera MD #### CDP, CP #### [address] [place], [place] [phone] Cleaner Assistant: Barak Garcia MD Albumin/Glob Ratio 1.3 Normal 1.0-2.5 [facility] Comment on above: Performed By: #### G LYHGB #### [address] [address] Cleaner Assistant: Dexter Madera MD #### CDP, CP #### [address] [place] [address] Cleaner Assistant: Barak Garcia MD Alkaline Phos 72 U/L Normal 40-129 [facility] Comment on above: Performed By: #### G LYHGB #### [address] [address] Cleaner Assistant: Dexter Madera MD #### CDP, CP #### [facility] [address] [place], [place] [phone] Cleaner Assistant: Barak Garcia MD ALT [Catalytic activity/Vol] 36 U/L Normal 5-41 [facility] Comment on above: Performed By: #### G LYHGB #### [address] [address] Cleaner Assistant: Dexter Madera MD #### CDP, CP #### [facility] [address] [place], [place] [phone] Cleaner Assistant: Barak Garcia MD Anion gap [Moles/Vol] 13 mmol/L Normal 9-17 [facility] Comment on above: Performed By: #### G LYHGB #### [address] [address] Cleaner Assistant: Dexter Madera MD #### CDP, CP #### [address] [place], [place] [phone] Cleaner Assistant: Barak Garcia MD AST [Catalytic activity/Vol] 30 U/L Normal <40 [facility] Comment on above: Performed By: #### G LYHGB #### [address] [address] Cleaner Assistant: Dexter Madera MD #### CDP, CP #### [facility] [address] [place] [address] Cleaner Assistant: Barak Garcia MD Bilirubin [Mass/Vol] 0.3 mg/dL Normal 0.3-1.2 [facility] Comment on above: Performed By: #### G LYHGB #### [address] [address] Cleaner Assistant: Dexter aMdera MD #### CDP, CP #### [facility] [address] [place], [place] [phone] Cleaner Assistant: Barak Garcia MD BUN/CRE Ratio 21 High 9-20 [facility] Comment on above: Performed By: #### G LYHGB #### [address] [address] Cleaner Assistant: Dexter Madera MD #### CDP, CP #### [facility] [address] [place], [place] [phone] Cleaner Assistant: Barak Garcia MD Calcium [Mass/Vol] 9.5 mg/dL Normal 8.6-10.4 [facility] Comment on above: Performed By: #### G LYHGB #### [address] [address] Cleaner Assistant: Dexter Madera MD #### CDP, CP #### [address] [place], [place] [phone] Cleaner Assistant: Barak Garcia MD Chloride [Moles/Vol] 102 mmol/L Normal 98-107 [facility] Comment on above: Performed By: #### G LYHGB #### [address] [address] Cleaner Assistant: Dexter Madera MD #### CDP, CP #### [address] [place], [place] 4756683 Cleaner Assistant: Barak Garcia MD CO2 [Moles/Vol] 23 mmol/L Normal 20-31 [facility] Comment on above: Performed By: #### G LYHGB #### [address] [address] Cleaner Assistant: Dexter Madera MD #### CDP, CP #### [address] [place], [place] [phone] Cleaner Assistant: Barak Garcia MD Creatinine [Mass/Vol] 0.7 mg/dL Normal 0.7-1.2 [facility] Comment on above: Performed By: #### G LYHGB #### [address] [place] [address] Cleaner Assistant: Dexter Madera MD #### CDP, CP #### [address] [place], [place] [phone] Cleaner Assistant: Barak Garcia MD GFR/1.73 sq M.predicted among non-blacks MDRD (S/P/Bld) [Vol rate/Area] mL/min/{1.73_m2} Normal >60 [facility] Comment on above: Result Comment: These [...] affects renal tubular secretion. Performed By: #### G LYHGB #### [facility] [address] [place] [address] Cleaner Assistant: Dexter Madera MD #### CDP, CP #### [address] [place], [place] [phone] Cleaner Assistant: Barak Garcia MD Glucose [Mass/Vol] 169 mg/dL High 70-99 [facility] Comment on above: Performed By: #### G LYHGB #### [address] [place] [address] Cleaner Assistant: Dexter Madera MD #### CDP, CP #### [address] [place], [place] [phone] Cleaner Assistant: Barak Garcia MD Potassium [Moles/Vol] 4.1 mmol/L Normal 3.7-5.3 [facility] Comment on above: Performed By: #### G LYHGB #### [address] [address] Cleaner Assistant: Dexter Madera MD #### CDP, CP #### [facility] [address] [place] [address] Dr. [place], [place] [phone] Cleaner Assistant: Barak Garcia MD Protein [Mass/Vol] 7.1 g/dL Normal 6.4-8.3 [facility] Comment on above: Performed By: #### G LYHGB #### [address] [address] Cleaner Assistant: Dexter Madera MD #### CDP, CP #### [address] [place] [address] Cleaner Assistant: Barak Garcia MD Sodium [Moles/Vol] 138 mmol/L Normal 135-144 [facility] Comment on above: Performed By: #### G LYHGB #### [address] [address] Cleaner Assistant: Dexter Madera MD #### CDP, CP #### [facility] [address] [place] [address] Dr. [place], [place] [phone] Cleaner Assistant: Barak Garcia MD Urea nitrogen [Mass/Vol] 15 mg/dL Normal 8-23 [facility] Comment on above: Performed By: #### G LYHGB #### [address] [address] Cleaner Assistant: Dexter Madera MD #### CDP, CP #### [facility] [address] [place] [address] [place] [address] Cleaner Assistant: Barak Garcia MD Hemoglobin A1Con 07-29-2023 Glucose [Mass/Vol] 197 mg/dL Normal [facility] Comment on above: Result Comment: The ADA and AACC recommend providing the estimated average glucose result to permit better patient understanding of their HBA1c result. Performed By: #### G LYHGB #### [address] [place] [address] Cleaner Assistant: Dexter Madera MD #### CDP, CP #### [facility] [address] [place], [place] [phone] Cleaner Assistant: Barak Garcia MD HbA1c (Bld) [Mass fraction] 8.5 % High 4.0-6.0 [facility] Comment on above: Performed By: #### G LYHGB #### [address] [address] Cleaner Assistant: Dexter Madera MD #### CDP, CP #### [facility] [address] [place], [place] [phone] Cleaner Assistant: Barak Garcia MD Lipid Profileon 07-29-2023 Cholesterol [Mass/Vol] 125 mg/dL Normal 0-199 [facility] Comment on above: Result Comment: Cholesterol Guidelines: <200 Desirable 200-240 Borderline >240 Undesirable Performed By: #### L IPR ####[address] [address] Lab Director: Dexter Madera MD Cholesterol in HDL [Mass/Vol] 32 mg/dL Low >40 [facility] Comment on above: Result Comment: HDL Guidelines: <40 Undesirable 40-59 Borderline >59 Desirable Performed By: #### L IPR ####[address] [address] Lab Director: Dexter Madera MD Cholesterol in LDL [Mass/Vol] 65 mg/dL Normal 0-100 [facility] Comment on above: Result Comment: LDL Guidelines: <100 Desirable 100-129 Near to/above Desirable 130-159 Borderline >159 Undesirable Direct (measured) LDL and calculated LDL are not interchangeable tests. Performed By: #### L IPR ####[facility] [address] [place] [address] lab Director: Dexter Madera MD Cholesterol in VLDL [Mass/Vol] 29 mg/dL Normal [facility] Comment on above: Performed By: #### L IPR ####[facility] [address] [place] [address] lab Director: Dexter Madera MD Cholesterol.total /Cholesterol in HDL [Mass ratio] 4.0 {ratio} Normal [facility] Comment on above: Performed By: #### L IPR ####[facility] [address] [place] [address] lab Director: Dexter Madera MD Triglyceride [Mass/Vol] 143 mg/dL Normal <150 [facility] Comment on above: Result Comment: Triglyceride Guidelines: <150 Desirable 150-199 Borderline 200-499 High >499 Very high Based on AHA Guidelines for fasting triglyceride, November 2011. Performed By: #### L IPR ####[facility] [address] [place] [address] lab Director: Dexter Madera MD Orders Onlyon 07-25-2023 Orders Only [id number] Kwabena Messer 1950 M Date Provider Department [facility] 07/25/2023 [facility] Family History Problem Relation Age of Onset Other Father Family Status - Relation Status Age at Father Normal [facility] MRI CARD MORPH FUNC WO/W IVC ONon 07-08-2023 MRI CARD MORPH FUNC WO/W IVCON * * *Final Report* * * DATE OF EXAM: Jul 08 2023 10:08AM J [id number] - MRI CARD MORPH FUNC WO/W IVCON / PROCEDURE REASON: . * * * * Physician Interpretation * * * * Cardiac MRI Report: [facility] Date of service: 07/08/2023 9:13:26 AM Linked orders:[id number] CARD MORPH FUNC WO/W IVCON;. Ordering physician: CIRA QUIJANO Technologist: Brijesh Mcgee Fellow: Olman Noriega MD Interpreting physician: Rob Maharaj MD PATIENT: Name: KWABENA MESSER Age: 73 years Gender: M MRI Scanner: Siemens Felicity 1.5T (after initial attempt on 3T scanner) Comparison: None History: 73 year old male with suspected cardiac mass (per verbal report small lesion adjacent to mitral valve, records not available). This study is performed to provide further assessment and tissue characterization of the suspected cardiac mass. MRI Techniques: * Turbo spin echo and gradient echo imaging for anatomic definition. * Dynamic cine imaging (SSFP and GRE) for cardiac chamber and wall-motion analysis, and valvular analysis. * Delayed gadolinium enhancement: could not be completed; patient could not tolerate continued exam and requested removal from scanner immediately after contrast injection * T2-STIR edema-weighted imaging. Contrast: 27 ml Gadavist i.v Limitations/Complication s: Patient could not tolerate continued exam and requested urgent removal from scanner. Due to arm motion, extraction from scanner was difficult Baseline vital signs: 72 bpm Height: 178.00 cm BSA: 2.99 m? Weight: 181.00 kg BMI: 57.1 kg/m? FINDINGS: Extracardiac findings: The chest wall appears normal. The mediastinum is notable for small mediastinal lymph node Limited imaging of the lungs reveals no gross abnormalities. Cardiac structures: The cardiac chambers demonstrate normal atrioventricular and normal ventriculoarterial concordance. Systemic and pulmonary venous return is normal. Aorta: Normal size thoracic aorta Aortic Root/Sinus: 3.4 cm Mid ascendin.9 cm Mid arch: 2.8 cm Descending mid thoracic: 2.8 cm Sinotubular Junction: Preserved Wall thickening: None Arch: Left Arch vessel branching pattern: normal Arch branch vessels: patent ostia Pulmonary Arteries: Pulmonary Arteries: Normal dimensions - Main pulmonary artery diameter: 2.7 cm Left Atrium: The left atrium is mildly dilated. LA volume: 90 ml (normal range: 31-112 ml) LA volume index: 30 ml/m? (normal range: 17-59 ml/m?) LA area (4ch): 32 cm? LA area (2ch): 21 cm? Right Atrium: The right atrium is mildly dilated. RA volume: 104 ml (normal range: 24-105 ml) RA volume index: 35 ml/m? (normal range: 15-61 ml/m?) RA area (4ch): 28 cm? Left Ventricle: The left ventricle is normal in size. Left ventricular systolic function is normal. value (normal range) indexed (normal range) EDV: 236 ml (83-207 ml) EDVi: 79 ml/m? (47-107 ml/m?) ESV: 95 ml (19-88 ml) ESVi: 32 ml/m? (11-47 ml/m?) SV: 141 ml (55-127 ml) SVi: 47 ml/m? (30-66 ml/m?) EF: 60 % (51-76 %) CO: 10.2 l/min (3.9-8.3 l/min) CI: 3.4 l/min/m? (2.1-4.3 ml/min/m?) mass: 179 g (57-152 g) LVMi: 60 g/m? (36-75 g/m?) LV segment wall thickness: basal anteroseptum: 1.1 cm basal septum: 1.1 cm basal inferolateral: 0.9 cm Wall Motion: There are no wall motion abnormalities. Normal LV wall motion. Right Ventricle: The right ventricle is normal in size. Right ventricular systolic function is normal. value (normal range) indexed (normal range) EDV: 229 ml (87-244 ml) EDVi: 76 ml/m? (53-123 ml/m?) ESV: 97 ml (29-117 ml) ESVi: 32 ml/m? (17-59 ml/m?) SV: 132 ml (43-146 ml) SVi: 44 ml/m? (28-75 ml/m?) EF: 58 % (42-72 %) CO: 9.5 l/min (2.8-8.3 l/min) CI: 3.2 l/min/m? (1.5-4.5 l/min/m?) Aortic Valve: There is no aortic regurgitation. Pulmonic Valve: The pulmonic valve was not seen or not interrogated. Mitral Valve: There is no mitral regurgitation. Tricuspid Valve: Tricuspid Flow Quantification: TR severity: no Pericardium: The pericardium is normal. IMPRESSION: - Limited study due to patient's inability to tolerate continued study (see above) - No evidence of cardiac mass. Specifically no mass is identified adjacent to the mitral valve. Note that small, mobile masses may be better seen by echocardiography - The left ventricle is normal in size (LV EDVi = 79 ml/m?). The left ventricular systolic function is normal (LV EF = 60 %). No - The right ventricle is normal in size (RV EDVi = 76 ml/m?). The right ventricular systolic function is normal (RV EF = 58 %). - Mild biatrial enlargement. * * * Final * * * RP Tray Drier: HANSEL Transcribe Date/Time: Jul 08 2023 9:13A Dictated by : ROB MAHARAJ MD This examination was interpreted and the report reviewed and electronically signed (more content not included)... Normal [facility] MRI CARDIAC MORPH FUN WO/W IVCONon 07-08-2023 IMPRESSION: - Limited study due to patient's inability to tolerate continued study (see above) - No evidence of cardiac mass. Specifically no mass is identified adjacent to the mitral valve. Note that small, mobile masses may be better seen by echocardiography - The left ventricle is normal in size (LV EDVi = 79 ml/m ). The left ventricular systolic function is normal (LV EF = 60 %). No - The right ventricle is normal in size (RV EDVi = 76 ml/m ). The right ventricular systolic function is normal (RV EF = 58 %). - Mild biatrial enlargement. * * * Final * * * RP Tray Drier: HANSEL Transcribe Date/Time: Jul 08 2023 9:13A Dictated by : ROB MAHARAJ MD This examination was interpreted and the report reviewed and electronically signed by: ROB MAHARAJ MD on Jul 08 2023 11:15AM [facility] DIVISION OF RADIOLOGY * * *Final Report* * * DATE OF EXAM: Jul 08 2023 10:08AM [facility] 0703 - MRI CARD MORPH FUNC WO/W IVCON / PROCEDURE REASON: . * * * * Physician Interpretation * * * * Cardiac MRI Report: [facility] Date of service: 07/08/2023 9:13:26 AM Linked orders:[id number] CARD MORPH FUNC WO/W IVCON;. Ordering physician: CIRA QUIJANO Technologist: Brijesh Mcgee Fellow: Olman Noriega MD Interpreting physician: Rob Maharaj MD PATIENT: Name: KWABENA MESSER Age: 73 years Gender: M MRI Scanner: Siemens Felicity 1.5T (after initial attempt on 3T scanner) Comparison: None History: 73 year old male with suspected cardiac mass (per verbal report small lesion adjacent to mitral valve, records not available). This study is performed to provide further assessment and tissue characterization of the suspected cardiac mass. MRI Techniques: * Turbo spin echo and gradient echo imaging for anatomic definition. * Dynamic cine imaging (SSFP and GRE) for cardiac chamber and wall-motion analysis, and valvular analysis. * Delayed gadolinium enhancement: could not be completed; patient could not tolerate continued exam and requested removal from scanner immediately after contrast injection * T2-STIR edema-weighted imaging. Contrast: 27 ml Gadavist i.v Limitations/Complication s: Patient could not tolerate continued exam and requested urgent removal from scanner. Due to arm motion, extraction from scanner was difficult Baseline vital signs: 72 bpm Height: 178.00 cm BSA: 2.99 m Weight: 181.00 kg BMI: 57.1 kg/m FINDINGS: Extracardiac findings: The chest wall appears normal. The mediastinum is notable for small mediastinal lymph node Limited imaging of the lungs reveals no gross abnormalities. Cardiac structures: The cardiac chambers demonstrate normal atrioventricular and normal ventriculoarterial concordance. Systemic and pulmonary venous return is normal. Aorta: Normal size thoracic aorta Aortic Root/Sinus: 3.4 cm Mid ascendin.9 cm Mid arch: 2.8 cm Descending mid thoracic: 2.8 cm Sinotubular Junction: Preserved Wall thickening: None Arch: Left Arch vessel branching pattern: normal Arch branch vessels: patent ostia Pulmonary Arteries: Pulmonary Arteries: Normal dimensions - Main pulmonary artery diameter: 2.7 cm Left Atrium: The left atrium is mildly dilated. LA volume: 90 ml (normal range: 31-112 ml) LA volume index: 30 ml/m (normal range: 17-59 ml/m ) LA area (4ch): 32 cm LA area (2ch): 21 cm Right Atrium: The right atrium is mildly dilated. RA volume: 104 ml (normal range: 24-105 ml) RA volume index: 35 ml/m (normal range: 15-61 ml/m ) RA area (4ch): 28 cm Left Ventricle: The left ventricle is normal in size. Left ventricular systolic function is normal. value (normal range) indexed (normal range) EDV: 236 ml (83-207 ml) EDVi: 79 ml/m (47-107 ml/m ) ESV: 95 ml (19-88 ml) ESVi: 32 ml/m (11-47 ml/m ) SV: 141 ml (55-127 ml) SVi: 47 ml/m (30-66 ml/m ) EF: 60 % (51-76 %) CO: 10.2 l/min (3.9-8.3 l/min) CI: 3.4 l/min/m (2.1-4.3 ml/min/m ) mass: 179 g (57-152 g) LVMi: 60 g/m (36-75 g/m ) LV segment wall thickness: basal anteroseptum: 1.1 cm basal septum: 1.1 cm basal inferolateral: 0.9 cm Wall Motion: There are no wall motion abnormalities. Normal LV wall motion. Right Ventricle: The right ventricle is normal in size. Right ventricular systolic function is normal. value (normal range) indexed (normal range) EDV: 229 ml (87-244 ml) EDVi: 76 ml/m (53-123 ml/m ) ESV: 97 ml (29-117 ml) ESVi: 32 ml/m (17-59 ml/m ) SV: 132 ml (43-146 ml) SVi: 44 ml/m (28-75 ml/m ) EF: 58 % (42-72 %) CO: 9.5 l/min (2.8-8.3 l/min) CI: 3.2 l/min/m (1.5-4.5 l/min/m ) Aortic Valve: There is no aortic regurgitation. Pulmonic Valve: The pulmonic valve was not seen or not interrogated. Mitral Valve: There is no mitral regurgitation. Tricuspid Valve: Tricuspid Flow Quantification: TR severity: no Pericardium: The pericardium is normal. DIVISION OF RADIOLOGY Provider, [facility] - 07/08/2023 * * *Final Report* * * DATE OF EXAM: Jul 08 2023 10:08AM [facility] [id number] - MRI CARD MORPH FUNC WO/W IVCON / PROCEDURE REASON: . * * * * Physician Interpretation * * * * Cardiac MRI Report: [facility] Date of service: 07/08/2023 9:13:26 AM Linked orders:[id number] CARD MORPH FUNC WO/W IVCON;. Ordering physician: CIRA QUIJANO Technologist: Brijesh Mcgee Fellow: Olman Noriega MD Interpreting physician: Rob Maharaj MD PATIENT: Name: KWABENA MESSER Age: 73 years Gender: M MRI Scanner: Siemens Felicity 1.5T (after initial attempt on 3T scanner) Comparison: None History: 73 year old male with suspected cardiac mass (per verbal report small lesion adjacent to mitral valve, records not available). This study is performed to provide further assessment and tissue characterization of the suspected cardiac mass. MRI Techniques: * Turbo spin echo and gradient echo imaging for anatomic definition. * Dynamic cine imaging (SSFP and GRE) for cardiac chamber and wall-motion analysis, and valvular analysis. * Delayed gadolinium enhancement: could not be completed; patient could not tolerate continued exam and requested removal from scanner immediately after contrast injection * T2-STIR edema-weighted imaging. Contrast: 27 ml Gadavist i.v Limitations/Complication s: Patient could not tolerate continued exam and requested urgent removal from scanner. Due to arm motion, extraction from scanner was difficult Baseline vital signs: 72 bpm Height: 178.00 cm BSA: 2.99 m Weight: 181.00 kg BMI: 57.1 kg/m FINDINGS: Extracardiac findings: The chest wall appears normal. The mediastinum is notable for small mediastinal lymph node Limited imaging of the lungs reveals no gross abnormalities. Cardiac structures: The cardiac chambers demonstrate normal atrioventricular and normal ventriculoarterial concordance. Systemic and pulmonary venous return is normal. Aorta: Normal size thoracic aorta Aortic Root/Sinus: 3.4 cm Mid ascendin.9 cm Mid arch: 2.8 cm Descending mid thoracic: 2.8 cm Sinotubular Junction: Preserved Wall thickening: None Arch: Left Arch vessel branching pattern: normal Arch branch vessels: patent ostia Pulmonary Arteries: Pulmonary Arteries: Normal dimensions - Main pulmonary artery diameter: 2.7 cm Left Atrium: The left atrium is mildly dilated. LA volume: 90 ml (normal range: 31-112 ml) LA volume index: 30 ml/m (normal range: 17-59 ml/m ) LA area (4ch): 32 cm LA area (2ch): 21 cm Right Atrium: The right atrium is mildly dilated. RA volume: 104 ml (normal range: 24-105 ml) RA volume index: 35 ml/m (normal range: 15-61 ml/m ) RA area (4ch): 28 cm Left Ventricle: The left ventricle is normal in size. Left ventricular systolic function is normal. value (normal range) indexed (normal range) EDV: 236 ml (83-207 ml) EDVi: 79 ml/m (47-107 ml/m ) ESV: 95 ml (19-88 ml) ESVi: 32 ml/m (11-47 ml/m ) SV: 141 ml (55-127 ml) SVi: 47 ml/m (30-66 ml/m ) EF: 60 % (51-76 %) CO: 10.2 l/min (3.9-8.3 l/min) CI: 3.4 l/min/m (2.1-4.3 ml/min/m ) mass: 179 g (57-152 g) LVMi: 60 g/m (36-75 g/m ) LV segment wall thickness: basal anteroseptum: 1.1 cm basal septum: 1.1 cm basal inferolateral: 0.9 cm Wall Motion: There are no wall motion abnormalities. Normal LV wall motion. Right Ventricle: The right ventricle is normal in size. Right ventricular systolic function is normal. value (normal range) indexed (normal range) EDV: 229 ml (87-244 ml) EDVi: 76 ml/m (53-123 ml/m ) ESV: 97 ml (29-117 ml) ESVi: 32 ml/m (17-59 ml/m ) SV: 132 ml (43-146 ml) SVi: 44 ml/m (28-75 ml/m ) EF: 58 % (42-72 %) CO: 9.5 l/min (2.8-8.3 l/min) CI: 3.2 l/min/m (1.5-4.5 l/min/m ) Aortic Valve: There is no aortic regurgitation. Pulmonic Valve: The pulmonic valve was not seen or not interrogated. Mitral Valve: There is no mitral regurgitation. Tricuspid Valve: Tricuspid Flow Quantification: TR severity: no Pericardium: The pericardium is normal. IMPRESSION IMPRESSION: - Limited study due to patient's inability to tolerate continued study (see above) - No evidence of cardiac mass. Specifically no mass is identified adjacent to the mitral valve. Note that small, mobile masses may be better seen by echocardiography - The left ventricle is normal in size (LV EDVi = 79 ml/m ). The left ventricular systolic function is normal (LV EF = 60 %). No - The right ventricle is normal in size (RV EDVi = 76 ml/m ). The right ventricular systolic function is normal (RV EF = 58 %). - Mild biatrial enlargement. * * * Final * * * RP Tray Drier: (more content not included)... [facility] Radiology Study observation (narrative) [facility] MRI CARDIAC MORPH FUNC WO/W IVCONOrdered By: Ccf Provider on 07-08-2023 [facility] Gwen 2023 CNPN Telephone (CARDMN) -------- KWABENA MESSER ([id number]) 1950 M Date Time Provider Department 06[facility]03[facility]23 [facility] During your visit today, we recorded the following information about you: Mari Austin 2023 2:16 PM Signed RP Patient already scheduled for 07/07 for CARDIAC MRI. Case closed. Allergies As of Date: 2023 (Not on File) Date Reviewed: Never Reviewed Reason for Visit: Appointment [186] Problem List As Of Date: 2023 (None) Encounter Status:Closed by MARI AUSTIN on 06/03/23 Normal [facility] Gwen 05-19-2023 CNPN Telephone (REFPHY) -------- AYDEHIRAKWABENA L ([id number]) 1950 Date Time Provider Department 05/19/23 NO ONE (HISTORICAL) REFPHY During your visit today, we recorded the following information about you: Reid Del Toro 05/19/2023 9:20 AM Signed Patient: Kwabena Messer Date of : 1950 Patient phone number: [phone] Referring Provider for the encounter: Cira Quijano' Requesting Provider: MRI cardiac morphology and function with and with IV contrast Reason for requesting visit (RFV/signs and symptoms/diagnosis): Abnormal echo (R93.1); Cardiac mass (I51.89). Person calling: caregiver: Reid Return call to: self Medical Records/Insurance Card scanned into [employer]: Yes Comments: Allergies As of Date: 05/19/2023 (Not on File) Date Reviewed: Never Reviewed Reason for Visit: External Referrals/resources [909] Problem List As Of Date: 05/19/2023 (None) Encounter Status:Closed by REID DEL TORO on 05/19/23 Normal [facility] CTA HEART CORONARY W IV CONT [place] 04-29-2023 CTA HEART CORONARY W IV CONTRAST CTA HEART CORONARY W IV CONTRAST 04/29/2023 10:21 AM CLINICAL INDICATIONS: Abnormal echocardiogram. TECHNOLOGIST COMMENTS: Abnormal echo QUESTION FOR RADIOLOGIST: Evaluate possibility of coronary artery stenosis. PROTOCOL: Gated cardiac CTA CONTRAST: 100 mL Omnipaque 350 TECHNIQUE: Multidetector CT angiogram was obtained using retrospective ECG gating. Imaging was performed from the level of the clavicles to the level of the hemidiaphragms. In order to provide better evaluation of the anatomy and disease process, advanced off-line 3-D post-processing techniques, including calculation of coronary artery stenosis and curvilinear analysis were performed. Medication administered in preparation for the examination is located in nursing documentation. All CT scans at this facility use dose modulation, iterative reconstruction, and/or weight based dosing when appropriate to reduce radiation dose to as low as reasonably achievable COMPARISON: None. CORONARY ARTERY ANGIOGRAM FINDINGS: Stenoses are reported as maximum percentage diameter stenosis. Stenosis grading is reported using the following scheme: Normal: no stenosis Mild: 1-49% stenosis Moderate: 50-70% stenosis Severe: >70% stenosis Occluded Dominance of the coronary artery system: right with normal origins and course. Examination is suboptimal due to suboptimal bolus timing, body habitus and minimal pulsation artifacts. Left Main: The left main is a normal caliber vessel which gives rise to the LAD and circumflex arteries moderate size ramus intermedius is visualized. The left main with no significant plaque. No significant stenosis Left Anterior Descending Artery: The proximal left anterior descending artery and first diagonal branch with calcified and noncalcified plaque. The mid-distal LAD, D2 and D3 branches with atherosclerotic plaque. There is a short segments of myocardial bridge in the mid LAD and ramus segment. There is moderate stenosis in the proximal and mid LAD The ramus intermedius branch with atherosclerotic plaque and moderate stenosis. Left Circumflex Artery: The left circumflex artery and its obtuse marginal branches are small in caliber with mild plaque. Accurate evaluation of stenosis could not be assessed due to very small caliber and poor contrast Right Coronary Artery: The right coronary artery and acute marginal branches with atherosclerotic plaque. The vessel is dominant and terminates as PDA and posterolateral branch with mild stenosis of around 30% in the proximal segment Cardiac Morphology: The right atrium is normal. The right ventricle is normal. The left atrium is normal. The left ventricle is normal. The pericardium is normal and there is no pericardial effusion. Cardiac Function: {reported only if retrospective ECG gating has been used} The calculated left ventricular ejection fraction is 59%, the left ventricular end-diastolic volume is 221 mL, and the left ventricular end-systolic volume is 91 mL. Stroke volume is 130 mL. There is normal wall motion of the left ventricle. Cardiac Devices and Indwelling Central Venous Lines: No central lines or pacer devices are seen EXTRACARDIAC FINDINGS: Other lung findings: 4 mm calcified granuloma in the right middle lobe and axial image 95 series 9. Visualized part of the lungs appear otherwise unremarkable. Airway: Normal. Pleura: No pleural effusion, thickening, or pneumothorax. Thoracic aorta and great vessels: Normal in diameter. Pulmonary arteries: Normal. Heart and pericardium: Normal. Lymph nodes: No enlarged thoracic lymph nodes. 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 Visualized upper abdomen: Normal. IMPRESSION: 1. Limited evaluation of the coronary arteries due to suboptimal bolus timing and mild pulsation artifact.. Dominant RCA with mild stenosis in the proximal segments. Moderate stenosis in the proximal LAD and ramus intermedius. Very small caliber of the left circumflex. 2. Normal global and regional wall motion and function of the LV. Ejection fraction of 59% 3. 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 4. Small calcified granuloma in the right middle lobe. Electronically signed: Sumanth Power Invalid Interpretation Code [facility] Office Visiton 04-15-2023 Follow-up visit [id number] AydeHiraKwabena L 1950 M Date Provider Department Center 04/15/2023 [id number] QUIJANO Family History Problem Relation Age of Onset Other Father Family Status - Relation Status Age at Father Level of Service:89234 CA OFFICE/OUTPATIENT NEW MODERATE MDM 45 MINUTES Normal [facility] CT CHEST W CONTRASTon 2023 CT CHEST [...] Sukhwinder Man MD 04/02/23 Final result Normal [facility] CT Chest W contrast Eboni No acute cardiopulmo nary process. [facility] EXAMINATION: CT OF THE CHEST WITH [...] Tissues/Bones: No acute bony abnormalities are noted. [facility] Sukhwinder Mna MD - 04/02/2023 EXAMINATION: CT OF THE [...] are noted. IMPRESSION: No acute cardiopulmonary process. [facility] contrast IVOrdere d By: Sukhwinder Man on 04-02-2023 [facility]20[facility]20 [employer] Work Phone: CBC with Auto Differentialon 03-31-2023 Basophils (Bld) [#/Vol] 0.14 10*3/uL [facility] [employer] Basophils/100 WBC (Bld) 1 % 0 - 2 % [facility] Eosinophils (Bld) [#/Vol] 0.65 10*3/uL High [facility] Eosinophils/100 WBC (Bld) 6 % High 1 - 4 % [facility] [employer] Erythrocyte distribution width (RBC) [Ratio] 13.2 % 11.8 - 14.4 % [facility] Hematocrit (Bld) [Volume fraction] 40.0 % Low 40.7 - 50.3 % [facility] Hemoglobin (Bld) [Mass/Vol] 12.9 g/dL Low 13.0 - 17.0 g/dL [facility] Immature granulocytes (Bld) [#/Vol] 0.08 10*3/uL [facility] [employer] Immature granulocytes/100 WBC (Bld) 1 % High 0 [facility] Interpretation and review of laboratory results Abnormal [facility] [employer] Lymphocytes/100 WBC (Bld) 23 % Low 24 - 43 % [facility] Lymphocytes/100 WBC (Bld) 2.37 % [facility] [employer] MCH (RBC) [Entitic mass] 28.9 pg 25.2 - 33.5 pg [facility] MCHC (RBC) [Mass/Vol] 32.3 g/dL 28.4 - 34.8 g/dL [facility] MCV (RBC) [Entitic vol] 89.7 fL 82.6 - 102.9 fL [facility] Monocytes/100 WBC (Bld) 8 % 3 - 12 % [facility] Monocytes/100 WBC (Bld) 0.81 % [facility] Neutrophils/100 WBC (Bld) 61 % 36 - 65 % [facility] Nucleated RBC/100 WBC (Bld) [Ratio] 0.0 % 0.0 per 100 WBC [facility] Platelet mean volume (Bld) [Entitic vol] 8.8 fL 8.1 - 13.5 fL [facility] Platelets (Bld) [#/Vol] 440 10*3/uL [facility] RBC (Bld) [#/Vol] 4.46 10*6/uL 4.21 - 5.7 7 m/uL [facility] Segmented neutrophils/100 WBC (Bld) 6.41 % [facility] WBC other (Bld) [#/Vol] 10.5 [facility] CBC with Diffon 03-31-2023 Abs. Basophil 0.14 k/uL Normal 0.00-0.20 [facility] Comment on above: Performed By: #### C DP, CP ####[address] [place] [address] Lab Director: Barak Garcia MD Abs.Imm.Granulocy te 0.08 k/uL Normal 0.00-0.30 [facility] Comment on above: Performed By: #### C DP, CP ####[facility] [place] [address] Lab Director: Barak Garcia MD Abs.Neutrophil (Seg) 6.41 k/uL Normal 1.50-8.10 [facility] Comment on above: Performed By: #### C DP, CP ####[facility] [place] [address] Lab Director: Barak Garcia MD Basophils/100 WBC (Bld) 1 % Normal 0-2 [facility] Comment on above: Performed By: #### C DP, CP ####[address] [place] [address] Lab Director: Barak Garcia MD Eosinophils (Bld) [#/Vol] 0.65 10*3/uL High 0.00-0.44 [facility] Comment on above: Performed By: #### C DP, CP ####[address] [place] [address] Lab Director: Barak Garcia MD Eosinophils/100 WBC (Bld) 6 % High 1-4 [facility] Comment on above: Performed By: #### C DP, CP ####[address] , [place] [address] Lab Director: Barak Garcia MD Erythrocyte distribution width (RBC) [Ratio] 13.2 % Normal 11.8-14.4 [facility] Comment on above: Performed By: #### C DP, CP ####[address] , [facility]83 Lab Director: Barak Garcia MD Hematocrit (Bld) [Volume fraction] 40.0 % Low 40.7-50.3 [facility] Comment on above: Performed By: #### C DP, CP ####[address] , [facility]83 Lab Director: Barak Garcia MD Hemoglobin (Bld) [Mass/Vol] 12.9 g/dL Low 13.0-17.0 [facility] Comment on above: Performed By: #### C DP, CP ####[address] [place] [address] Lab Director: Barak Garcia MD Immature granulocytes/100 WBC (Bld) 1 % High 0 [facility] Comment on above: Performed By: #### C DP, CP ####[address] , [place] [address] Lab Director: Barak Garcia MD Lymphocytes (Bld) [#/Vol] 2.37 10*3/uL Normal 1.10-3.70 [facility] Comment on above: Performed By: #### C DP, CP ####[address] , [place] [address] Lab Director: Barak Garcia MD Lymphocytes/100 WBC (Bld) 23 % Low 24-43 [facility] Comment on above: Performed By: #### C DP, CP ####[address] , [facility]83 lab Director: Barak Garcia MD MCH (RBC) [Entitic mass] 28.9 pg Normal 25.2-33.5 [facility] Comment on above: Performed By: #### C DP, CP ####[address] , [facility]83 Lab Director: Barak Garcia MD MCHC (RBC) [Mass/Vol] 32.3 g/dL Normal 28.4-34.8 [facility] Comment on above: Performed By: #### C DP, CP ####[address] , [facility]70([facility])[phone] Director: Barak Garcia MD MCV (RBC) [Entitic vol] 89.7 fL Normal 82.6-102.9 [facility] Comment on above: Performed By: #### C DP, CP ####[address] [place] [address] Lab Director: Barak Garcia MD Monocytes (Bld) [#/Vol] 0.81 10*3/uL Normal 0.10-1.20 [facility] Comment on above: Performed By: #### C DP, CP ####[address] [place] [address] Lab Director: Barak Garcia MD Monocytes/100 WBC (Bld) 8 % Normal 3-12 [facility] Comment on above: Performed By: #### C DP, CP ####[address] [place] [address] Lab Director: Barak Garcia MD Neutrophil (Seg) 61 % Normal 36-65 [facility] Comment on above: Performed By: #### C DP, CP ####[address] [place] [address] Lab Director: Barak Garcia MD NRBC Automated 0.0 per 100 WBC Normal 0.0 [facility] Comment on above: Performed By: #### C DP, CP ####[address] , [facility]83 Lab Director: Barak Garcia MD Platelet mean volume (Bld) [Entitic vol] 8.8 fL Normal 8.1-13.5 [facility] Comment on above: Performed By: #### C DP, CP ####[address] [place] [address] Lab Director: Barak Garcia MD Platelets (Bld) [#/Vol] 440 10*3/uL Normal 138-453 [facility] Comment on above: Performed By: #### C DP, CP ####[address] [place] [address] Lab Director: Barak Garcia MD RBC (Bld) [#/Vol] 4.46 10*6/uL Normal 4.21-5.77 [facility] Comment on above: Performed By: #### C DP, CP ####[address] [place] [address] Lab Director: Barak Garcia MD WBC (Bld) [#/Vol] 10.5 10*3/uL Normal 3.5-11.3 [facility] Comment on above: Performed By: #### C DP, CP ####[address] , [place] [id number] Lab Director: Barak Garcia MD CT Chest W contrast Eboni Radiology Study observation (narrative) [facility] Comp Metabolic Profon 2023 Albumin [Mass/Vol] 4.2 g/dL Normal 3.5-5.2 [facility] Comment on above: Performed By: #### C DP, CP ####[address] , [place] [id number] Lab Director: Barak Garcia MD Albumin/Glob Ratio 1.3 Normal 1.0-2.5 [facility] Comment on above: Performed By: #### C DP, CP ####[address] [place] [address] Lab Director: Barak Garcia MD Alkaline Phos 71 U/L Normal 40-129 [facility] Comment on above: Performed By: #### C DP, CP ####[address] , [place] [phone] Director: Barak Garcia MD ALT [Catalytic activity/Vol] 27 U/L Normal 5-41 [facility] Comment on above: Performed By: #### C DP, CP ####[address] [place] [address] Lab Director: Barak Garcia MD Anion gap [Moles/Vol] 7 mmol/L Low 9-17 [facility] Comment on above: Performed By: #### C DP, CP ####[address] , [place] [id number] Lab Director: Barak Garcia MD AST [Catalytic activity/Vol] 21 U/L Normal <40 [facility] Comment on above: Performed By: #### C DP, CP ####[address] [place] [address] Lab Director: Barak Garcia MD Bilirubin [Mass/Vol] 0.3 mg/dL Normal 0.3-1.2 [facility] Comment on above: Performed By: #### C DP, CP ####[address] , [place] [id number] Lab Director: Barak Garcia MD BUN/CRE Ratio 20 Normal 9-20 [facility] Comment on above: Performed By: #### C DP, CP ####[address] , [place] [id number] Lab Director: Barak Garcia MD Calcium [Mass/Vol] 9.8 mg/dL Normal 8.6-10.4 [facility] Comment on above: Performed By: #### C DP, CP ####[address] [place] [address] Lab Director: Barak Garcia MD Chloride [Moles/Vol] 102 mmol/L Normal 98-107 [facility] Comment on above: Performed By: #### C DP, CP ####[address] [place] [address] Lab Director: Barak Garcia MD CO2 [Moles/Vol] 31 mmol/L Normal 20-31 [facility] Comment on above: Performed By: #### C DP, CP ####[address] , [place] [address] Lab Director: Barak Garcia MD Creatinine [Mass/Vol] 0.7 mg/dL Normal 0.7-1.2 [facility] Comment on above: Performed By: #### C DP, CP ####[address] [place] [address] Lab Director: Barak Garcia MD GFR/1.73 sq M.predicted among non-blacks MDRD (S/P/Bld) [Vol rate/Area] mL/min/{1.73_m2} Normal >60 [facility] Comment on above: Result Comment: These [...] renal tubular secretion. Performed By: #### C DP, CP ####[address] [place] [address] Lab Director: Barak Garcia MD Glucose [Mass/Vol] 147 mg/dL High 70-99 [facility] Comment on above: Performed By: #### C DP, CP ####[address] [place] [address] Lab Director: Barak Garcia MD Potassium [Moles/Vol] 4.1 mmol/L Normal 3.7-5.3 [facility] Comment on above: Performed By: #### C DP, CP ####[address] [place] [address] Lab Director: Barak Garcia MD Protein [Mass/Vol] 7.5 g/dL Normal 6.4-8.3 [facility] Comment on above: Performed By: #### C DP, CP ####[address] [place] [address] Lab Director: Barak Garcia MD Sodium [Moles/Vol] 140 mmol/L Normal 135-144 [facility] Comment on above: Performed By: #### C DP, CP ####[address] , [place] [id number] lab Director: Barak Garcia MD Urea nitrogen [Mass/Vol] 14 mg/dL Normal 8-23 [facility] Comment on above: Performed By: #### C DP, CP ####[facility] [place] [address] lab Director: Barak Garcia MD Comprehensive Metabolic Pane jesus 03-31-2023 Albumin [Mass/Vol] 4.2 g/dL 3.5 - 5.2 g/dL [facility] Albumin/Globulin [Mass ratio] 1.3 {ratio} 1.0 - 2.5 [facility] ALP [Catalytic activity/Vol] 71 U/L 40 - 129 U/L [facility] ALT [Catalytic activity/Vol] 27 U/L 5 - 41 U/L [facility] Anion gap [Moles/Vol] 7 mmol/L Low 9 - 17 mmol/L [facility] AST [Catalytic activity/Vol] 21 U/L NINF - 40 U/L [facility] Bilirubin [Mass/Vol] 0.3 mg/dL 0.3 - 1.2 mg/dL [facility] Calcium [Mass/Vol] 9.8 mg/dL 8.6 - 10.4 mg/dL [facility] Chloride [Moles/Vol] 102 mmol/L 98 - 107 mmol/L [facility] CO2 [Moles/Vol] 31 mmol/L 20 - 31 mmol/L [facility] Creatinine [Mass/Vol] 0.7 mg/dL 0.7 - 1.2 mg/dL [facility] GFR/1.73 sq M.predicted MDRD (S/P/Bld) [Vol rate/Area] - PINF [facility] Comment on above: These results [...] mg/dL High 70 - 99 mg/dL [facility] Interpretation and review of laboratory results Abnormal [facility] Potassium [Moles/Vol] 4.1 mmol/L 3.7 - 5.3 mmol/L [facility] Protein [Mass/Vol] 7.5 g/dL 6.4 - 8.3 g/dL [facility] Sodium [Moles/Vol] 140 mmol/L 135 - 144 mmol/L [facility] Urea nitrogen [Mass/Vol] 14 mg/dL 8 - 23 mg/dL [facility] Urea nitrogen/Creatini ne [Mass ratio] 20 mg/mg 9 - 20 [facility] Lipid Panelon 03-31-2023 Cholesterol [Mass/Vol] 141 mg/dL NINF - 200 mg/dL [facility] Comment on above: Cholesterol Guidelines: <200 Desirable 200-240 Borderline >240 Undesirable Cholesterol in HDL [Mass/Vol] 34 mg/dL Low 40 - PINF mg/dL [facility] Comment on above: HDL Guidelines: <40 Undesirable 40-59 Borderline >59 Desirable Cholesterol in LDL [Mass/Vol] 77 mg/dL 0 - 130 mg/dL [facility] Comment on above: LDL Guidelines: <100 Desirable 100-129 Near to/above Desirable 130-159 Borderline >159 Undesirable Direct (measured) LDL and calculated LDL are not interchangeable tests. Cholesterol.total /Cholesterol in HDL [Mass ratio] 4.1 {ratio} NINF - 5 [facility] Interpretation and review of laboratory results Abnormal [facility] Triglyceride [Mass/Vol] 148 mg/dL NINF - 150 mg/dL [facility] Comment on above: Triglyceride Guidelines: <150 Desirable 150-199 Borderline 200-499 High >499 Very high Based on AHA Guidelines for fasting triglyceride, November 2011. [facility] Lipid Profileon 03-31-2023 Cholesterol [Mass/Vol] 141 mg/dL Normal <200 [facility] Comment on above: Result Comment: Cholesterol Guidelines: <200 Desirable 200-240 Borderline >240 Undesirable Performed By: #### L IPR ####[facility] [address] [place] [address] Lab Director: Dexter Madera MD Cholesterol in HDL [Mass/Vol] 34 mg/dL Low >40 [facility] Comment on above: Result Comment: HDL Guidelines: <40 Undesirable 40-59 Borderline >59 Desirable Performed By: #### L IPR ####[facility] [id number] [place] [address] Lab Director: Dexter Madera MD Cholesterol in LDL [Mass/Vol] 77 mg/dL Normal 0-130 [facility] Comment on above: Result Comment: LDL Guidelines: <100 Desirable 100-129 Near to/above Desirable 130-159 Borderline >159 Undesirable Direct (measured) LDL and calculated LDL are not interchangeable tests. Performed By: #### L IPR ####[facility] [address] [place] [address] [phone] Director: Dexter Madera MD Cholesterol.total /Cholesterol in HDL [Mass ratio] 4.1 {ratio} Normal <5 [facility] Comment on above: Performed By: #### L IPR ####[facility] [address] [place] [id number] Lab Director: Dexter Madera MD Triglyceride [Mass/Vol] 148 mg/dL Normal <150 [facility] Comment on above: Result Comment: Triglyceride Guidelines: <150 Desirable 150-199 Borderline 200-499 High >499 Very high Based on AHA Guidelines for fasting triglyceride, November 2011. Performed By: #### L IPR ####[facility] [address] [place] [address] [phone] Director: Dexter Madera MD Hemoglobin A1Con 02-09-2023 Glucose [Mass/Vol] 186 mg/dL Normal [facility] Comment on above: Result Comment: The ADA and AACC recommend providing the estimated average glucose result to permit better patient understanding of their HBA1c result. Performed By: #### G LYHGB #### [facility] [address] [place] [address] Cleaner Assistant: Dexter Madera MD HbA1c (Bld) [Mass fraction] 8.1 % High 4.0-6.0 [facility] Comment on above: Performed By: #### G LYHGB #### [facility] [employer] [facility] [place], [place] [phone] Cleaner Assistant: Dexter Madera MD XR HAND RIGHT (MIN [...] Dhaval Lopez MD 12/23/22 Final result Normal [facility] Hemoglobin A1Con 10-28-2022 Glucose [Mass/Vol] 217 mg/dL Normal [facility] Comment on above: Result Comment: The ADA and AACC recommend providing the estimated average glucose result to permit better patient understanding of their HBA1c result. Performed By: #### C P, CDP #### [facility] [address] [place] [address] [place] [address] Cleaner Assistant: Barak Garcia MD #### GLYHGB #### [employer] [facility] [place], [place] [phone] Cleaner Assistant: Dexter Madera MD HbA1c (Bld) [Mass fraction] 9.2 % High 4.0-6.0 [facility] Comment on above: Performed By: #### C P, CDP #### [facility] [address] [place] [address] Cleaner Assistant: Barak Garcia MD #### GLYHGB #### [address] [place] [address] Cleaner Assistant: Dexter Madera MD CBC with Diffon 10-27-2022 Abs. Basophil 0.12 k/uL Normal 0.00-0.20 [facility] Comment on above: Performed By: #### C P, CDP #### [facility] [address] [place], [place] [phone] Cleaner Assistant: Barak Garcia MD #### GLYHGB #### [address] [address] Cleaner Assistant: Dexter Madera MD Abs.Imm.Granulocy te 0.03 k/uL Normal 0.00-0.30 [facility] Comment on above: Performed By: #### C P, CDP #### [address] [place] [phone] Cleaner Assistant: Barak Garcia MD #### GLYHGB #### [address] [phone] Cleaner Assistant: Dexter Madera MD Abs.Neutrophil (Seg) 7.42 k/uL Normal 1.50-8.10 [facility] Comment on above: Performed By: #### C P, CDP #### [address] [place] [phone] Cleaner Assistant: Barak Garcia MD #### GLYHGB #### [address] [address] Cleaner Assistant: Dexter Madera MD Basophils/100 WBC (Bld) 1 % Normal 0-2 [facility] Comment on above: Performed By: #### C P, CDP #### [address] [place], [place] [phone] Cleaner Assistant: Barak Garcia MD #### GLYHGB #### [address] [address] Cleaner Assistant: Dexter Madera MD Eosinophils (Bld) [#/Vol] 0.66 10*3/uL High 0.00-0.44 [facility] Comment on above: Performed By: #### C P, CDP #### [facility] [address] [place] [address] Dr[address] [place] [phone] Cleaner Assistant: Barak Garcia MD #### GLYHGB #### [address] [address] Cleaner Assistant: Dexter Madera MD Eosinophils/100 WBC (Bld) 6 % High 1-4 [facility] Comment on above: Performed By: #### C P, CDP #### [facility] [address] [place] [address] Dr[address] [place] [phone] Cleaner Assistant: Barak Garcia MD #### GLYHGB #### [address] [address] Cleaner Assistant: Dexter Madera MD Erythrocyte distribution width (RBC) [Ratio] 13.6 % Normal 11.8-14.4 [facility] Comment on above: Performed By: #### C P, CDP #### [facility] [address] [place] [address] Dr. [place] [phone] Cleaner Assistant: Barak Garcia MD #### GLYHGB #### [address] [address] Cleaner Assistant: Dexter Madera MD Hematocrit (Bld) [Volume fraction] 40.6 % Low 40.7-50.3 [facility] Comment on above: Performed By: #### C P, CDP #### [facility] [address] [place] [address] Dr. [place] [phone] Cleaner Assistant: Barak Garcia MD #### GLYHGB #### [address] [address] Cleaner Assistant: Dexter Madera MD Hemoglobin (Bld) [Mass/Vol] 13.6 g/dL Normal 13.0-17.0 [facility] Comment on above: Performed By: #### C P, CDP #### [facility] [address] [place], [place] [phone] Cleaner Assistant: Barak Garcia MD #### GLYHGB #### [address] [phone] Cleaner Assistant: Dexter Madera MD Immature granulocytes/100 WBC (Bld) 0 % Normal 0 [facility] Comment on above: Performed By: #### C P, CDP #### [address] [place] [phone] Cleaner Assistant: Barak Garcia MD #### GLYHGB #### [address] [address] Cleaner Assistant: Dexter Madera MD Lymphocytes (Bld) [#/Vol] 2.09 10*3/uL Normal 1.10-3.70 [facility] Comment on above: Performed By: #### C P, CDP #### [address] [place], [place] [phone] Cleaner Assistant: Barak Garcia MD #### GLYHGB #### [address] [address] Cleaner Assistant: Dexter Madera MD Lymphocytes/100 WBC (Bld) 19 % Low 24-43 [facility] Comment on above: Performed By: #### C P, CDP #### [address] [place], [place] [phone] Cleaner Assistant: Barak Garcia MD #### GLYHGB #### [address] [address] Cleaner Assistant: Dexter Madera MD MCH (RBC) [Entitic mass] 29.4 pg Normal 25.2-33.5 [facility] Comment on above: Performed By: #### C P, CDP #### [address] [place] [address] Cleaner Assistant: Barak Garcia MD #### GLYHGB #### [address] [phone] Cleaner Assistant: Dexter Madera MD MCHC (RBC) [Mass/Vol] 33.5 g/dL Normal 28.4-34.8 [facility] Comment on above: Performed By: #### C P, CDP #### [address] [place] [address] Cleaner Assistant: Barak Garcia MD #### GLYHGB #### [place] [phone] Cleaner Assistant: Dexter Madera MD MCV (RBC) [Entitic vol] 87.9 fL Normal 82.6-102.9 [facility] Comment on above: Performed By: #### C P, CDP #### [address] [place] [phone] Cleaner Assistant: Barak Garcia MD #### GLYHGB #### [place] [phone] Cleaner Assistant: Dexter Madera MD Monocytes (Bld) [#/Vol] 0.86 10*3/uL Normal 0.10-1.20 [facility] Comment on above: Performed By: #### C P, CDP #### [address] [place] [address] Cleaner Assistant: Barak Garcia MD #### GLYHGB #### [address] [place], [place] [phone] Cleaner Assistant: Dexter Madera MD Monocytes/100 WBC (Bld) 8 % Normal 3-12 [facility] Comment on above: Performed By: #### C P, CDP #### [facility] [address] [place], [place] [phone] Cleaner Assistant: Barak Garcia MD #### GLYHGB #### [address] [address] Cleaner Assistant: Dexter Madera MD Neutrophil (Seg) 66 % High 36-65 [facility] Comment on above: Performed By: #### C P, CDP #### [facility] [address] [place], [place] [phone] Cleaner Assistant: Barak Garcia MD #### GLYHGB #### [address] [address] Cleaner Assistant: Dexter Madera MD NRBC Automated 0.0 per 100 WBC Normal 0.0 [facility] Comment on above: Performed By: #### C P, CDP #### [facility] [address] [place], [place] [phone] Cleaner Assistant: Barak Garcia MD #### GLYHGB #### [address] [address] Cleaner Assistant: Dexter Madera MD Platelet mean volume (Bld) [Entitic vol] 9.4 fL Normal 8.1-13.5 [facility] Comment on above: Performed By: #### C P, CDP #### [facility] [address] [place], [place] [phone] Cleaner Assistant: Barak Garcia MD #### GLYHGB #### [address] [address] Cleaner Assistant: Dexter Madera MD Platelets (Bld) [#/Vol] 389 10*3/uL Normal 138-453 [facility] Comment on above: Performed By: #### C P, CDP #### [facility] [address] [place], [place] [phone] Cleaner Assistant: Barak Garcia MD #### GLYHGB #### [address] [place], [place] [phone] Cleaner Assistant: Dexter Madera MD RBC (Bld) [#/Vol] 4.62 10*6/uL Normal 4.21-5.77 [facility] Comment on above: Performed By: #### C P, CDP #### [facility] [address] [place], [place] [phone] Cleaner Assistant: Barak Garcia MD #### GLYHGB #### [address] [place], [place] [phone] Cleaner Assistant: Detxer Madera MD WBC (Bld) [#/Vol] 11.2 10*3/uL Normal 3.5-11.3 [facility] Comment on above: Performed By: #### C P, CDP #### [facility] [address] [place], [place] [phone] Cleaner Assistant: Barak Garcia MD #### GLYHGB #### [address] [address] Cleaner Assistant: Dexter Madera MD Comp Metabolic Profon 2022 Albumin [Mass/Vol] 4.5 g/dL Normal 3.5-5.2 [facility] Comment on above: Performed By: #### C P, CDP #### [facility] [address] [place], [place] [phone] Cleaner Assistant: Barak Garcia MD #### GLYHGB #### [address] [place], [place] [phone] Cleaner Assistant: Dexter Madera MD Albumin/Glob Ratio 1.5 Normal 1.0-2.5 [facility] Comment on above: Performed By: #### C P, CDP #### [facility] [address] [place], [place] [phone] Cleaner Assistant: Barak Garcia MD #### GLYHGB #### [facility] [address] [place] [address] Cleaner Assistant: Dexter Madera MD Alkaline Phos 71 U/L Normal 40-129 [facility] Comment on above: Performed By: #### C P, CDP #### [facility] [address] [place] [address] Cleaner Assistant: Barak Garcia MD #### GLYHGB #### [address] [place] [address] Cleaner Assistant: Dexter Madera MD ALT [Catalytic activity/Vol] 30 U/L Normal 5-41 [facility] Comment on above: Performed By: #### C P, CDP #### [facility] [address] [place] [address] Cleaner Assistant: Barak Garcia MD #### GLYHGB #### [address] [address] Cleaner Assistant: Dexter Madera MD Anion gap [Moles/Vol] 12 mmol/L Normal 9-17 [facility] Comment on above: Performed By: #### C P, CDP #### [facility] [address] [place] [address] Cleaner Assistant: Barak Garcia MD #### GLYHGB #### [address] [place] [address] Cleaner Assistant: Dexter Madera MD AST [Catalytic activity/Vol] 22 U/L Normal <40 [facility] Comment on above: Performed By: #### C P, CDP #### [facility] [address] [place], [place] [phone] Cleaner Assistant: Barak Garcia MD #### GLYHGB #### [facility] [address] [place], [place] [phone] Cleaner Assistant: Dexter Madera MD Bilirubin [Mass/Vol] 0.3 mg/dL Normal 0.3-1.2 [facility] Comment on above: Performed By: #### C P, CDP #### [facility] [address] [place] [address] Dr[address] [place], [place] [phone] Cleaner Assistant: Barak Garcia MD #### GLYHGB #### [address] [phone] Cleaner Assistant: Dexter Madera MD BUN/CRE Ratio 23 High 9-20 [facility] Comment on above: Performed By: #### C P, CDP #### [address] [place] [phone] Cleaner Assistant: Barak Garcia MD #### GLYHGB #### [address] [address] Cleaner Assistant: Dexter Madera MD Calcium [Mass/Vol] 9.9 mg/dL Normal 8.6-10.4 [facility] Comment on above: Performed By: #### C P, CDP #### [address] [place], [place] [phone] Cleaner Assistant: Barak Garcia MD #### GLYHGB #### [address] [address] Cleaner Assistant: Dexter Madera MD Chloride [Moles/Vol] 103 mmol/L Normal 98-107 [facility] Comment on above: Performed By: #### C P, CDP #### [address] [place], [place] [phone] Cleaner Assistant: Barak Garcia MD #### GLYHGB #### [address] [place] [address] Cleaner Assistant: Dexter Madera MD CO2 [Moles/Vol] 26 mmol/L Normal 20-31 [facility] Comment on above: Performed By: #### C P, CDP #### [facility] [address] [place], [place] 1485483 Cleaner Assistant: Barak Garcia MD #### GLYHGB #### [facility] [address] [place] [address] Cleaner Assistant: Dexter Madera MD Creatinine [Mass/Vol] 0.8 mg/dL Normal 0.7-1.2 [facility] Comment on above: Performed By: #### C P, CDP #### [address] [place] [address] Cleaner Assistant: Barak Garcia MD #### GLYHGB #### [address] [phone] Cleaner Assistant: Dexter Madera MD GFR/1.73 sq M.predicted among non-blacks MDRD (S/P/Bld) [Vol rate/Area] mL/min/{1.73_m2} Normal >60 [facility] Comment on above: Result Comment: These [...] Performed By: #### C P, CDP #### [facility] [address] [place], [place] 0041783 Cleaner Assistant: Barak Garcia MD #### GLYHGB #### [facility] [address] [place], [place] [phone] Cleaner Assistant: Dexter Madera MD Glucose [Mass/Vol] 217 mg/dL High 70-99 [facility] Comment on above: Performed By: #### C P, CDP #### [facility] [address] [place], [place] [phone] Cleaner Assistant: Barak Garcia MD #### GLYHGB #### [address] [place], [place] [phone] Cleaner Assistant: Dexter Madera MD Potassium [Moles/Vol] 4.2 mmol/L Normal 3.7-5.3 [facility] Comment on above: Performed By: #### C P, CDP #### [facility] [address] [place] [address] Cleaner Assistant: Barak Garcia MD #### GLYHGB #### [address] [place], [place] [phone] Cleaner Assistant: Dexter Madera MD Protein [Mass/Vol] 7.5 g/dL Normal 6.4-8.3 [facility] Comment on above: Performed By: #### C P, CDP #### [facility] [address] [place], [place] [phone] Cleaner Assistant: Barak Garcia MD #### GLYHGB #### [address] [place] [address] Cleaner Assistant: Dexter Madera MD Sodium [Moles/Vol] 141 mmol/L Normal 135-144 [facility] Comment on above: Performed By: #### C P, CDP #### [facility] [address] [place], [place] [phone] Cleaner Assistant: Barak Garcia MD #### GLYHGB #### [address] [place] [address] Cleaner Assistant: Dexter Madera MD Urea nitrogen [Mass/Vol] 18 mg/dL Normal 8-23 [facility] Comment on above: Performed By: #### C P, CDP #### [facility] [address] [place] [address] Cleaner Assistant: Barak Garcia MD #### GLYHGB #### [facility] [address] [place] [address] Cleaner Assistant: Dexter Madera MD Lipid Profileon 10-27-2022 Cholesterol [Mass/Vol] 151 mg/dL Normal <200 [facility] Comment on above: Result Comment: Cholesterol Guidelines: <200 Desirable 200-240 Borderline >240 Undesirable Performed By: #### L IPR ####[address] [address])[phone] Director: Dexter Madera MD Cholesterol in HDL [Mass/Vol] 35 mg/dL Low >40 [facility] Comment on above: Result Comment: HDL Guidelines: <40 Undesirable 40-59 Borderline >59 Desirable Performed By: #### L IPR ####[address] [place], [place] [address])[phone] Director: Dexter Madera MD Cholesterol in LDL [Mass/Vol] 87 mg/dL Normal 0-130 [facility] Comment on above: Result Comment: LDL Guidelines: <100 Desirable 100-129 Near to/above Desirable 130-159 Borderline >159 Undesirable Direct (measured) LDL and calculated LDL are not interchangeable tests. Performed By: #### L IPR ####[address] [address])[phone] Director: Dexter Madera MD Cholesterol.total /Cholesterol in HDL [Mass ratio] 4.3 {ratio} Normal <5 [facility] Comment on above: Performed By: #### L IPR ####[facility] [place] [address] Lab Director: Dexter Madera MD Triglyceride [Mass/Vol] 143 mg/dL Normal <150 [facility] Comment on above: Result Comment: Triglyceride Guidelines: <150 Desirable 150-199 Borderline 200-499 High >499 Very high Based on AHA Guidelines for fasting triglyceride, November 2011. Performed By: #### L IPR ####[facility] [address] [place] [address] Lab Director: Dexter Madera MD Microalb.,Random Uron 2022 Creatinine [Mass/Vol] 116.4 mg/dL Normal 39.0-259.0 [facility] Comment on above: Performed By: #### U RNMAB ####[facility] [address] [place] [address] Lab Director: Dexetr Madera MD Microalb/Creat Ratio 60 mcg/mg creat High <17 [facility] Comment on above: Performed By: #### U RNMAB ####[facility] [address] [place] [address] Lab Director: Dexter Madera MD Microalbumin conc. 70 mg/L High <21 [facility] Comment on above: Performed By: #### U RNMAB ####[facility] [address] [place] [address] Lab Director: Dexter Madera MD Surgical Pathologyon 023 Surgical Pathology (NOTE) Path Number: [id number] -- Diagnosis -- A. ABNORMAL SKIN GROWTH, RIGHT POSTERIOR LEG, EXCISION:-FIBROEPITHELIA L POLYP. Sharmaine Montejo Electronically Signed Out 09/21/2022 Clinical Information Pre-op Diagnosis: ABNORMAL SKIN GROWTH; SKIN TAGS Operative Findings: RT POSTERIOR LEG cd Source of Specimen A: ABNORMAL SKIN GROWTH - RIGHT POSTERIOR LEG Gross Description A. KWABENA AYDE, RT POSTERIOR THIGH Received in formalin is a 1.4 x 1.0 x 0.3 cm wrinkled brian papule. Inked and bisected 1cs. tm Microscopic Description Microscopic examination performed. Processing Lab: [address] [phone] Interpretation Performed at [address] [phone] SURGICAL PATHOLOGY CONSULTATION Patient Name: KWABENA MESSER Med Rec: [id number] [facility] [employer] CONSULTING PATHOLOGISTS [facility] ANATOMIC PATHOLOGY [address] [place] [address]. [place], [place] [address] Normal [facility] CBC with Auto Differentialon 04-29-2022 Absolute Eos # 0.45 High [facility] Absolute Immature Granulocyte 0.05 [facility] Absolute Lymph # 1.93 [facility] Absolute [place] # 0.85 [facility] Basophils (Bld) [#/Vol] 0.13 10*3/uL [facility] Basophils/100 WBC (Bld) 1 % 0 - 2 % [facility] Eosinophils/100 WBC (Bld) 4 % 1 - 4 % [facility] Hematocrit (Bld) [Volume fraction] 42.9 % 40.7 - 50.3 % [facility] Hemoglobin (Bld) [Mass/Vol] 14.6 g/dL 13.0 - 17.0 g/dL [facility] Immature granulocytes/100 WBC (Bld) 1 % High 0 [facility] Interpretation and review of laboratory results Abnormal [facility] Lymphocytes/100 WBC (Bld) 19 % Low 24 - 43 % [facility] MCH (RBC) [Entitic mass] 29.9 pg 25.2 - 33.5 pg [facility] MCHC (RBC) [Mass/Vol] 34.0 g/dL 28.4 - 34.8 g/dL [facility] MCV (RBC) [Entitic vol] 87.9 fL 82.6 - 102.9 fL [facility] Monocytes/100 WBC (Bld) 8 % 3 - 12 % [facility] NRBC Automated 0.0 0.0 per 100 WBC [facility] Platelet distribution width (Bld) [Ratio] 13.7 % 11.8 - 14.4 % [facility] Platelet mean volume (Bld) [Entitic vol] 9.4 fL 8.1 - 13.5 fL [facility] Platelets (Bld) [#/Vol] 358 10*3/uL [facility] RBC (Bld) [#/Vol] 4.88 10*6/uL 4.21 - 5.7 7 m/uL [facility] Segmented neutrophils/100 WBC (Bld) 67 % High 36 - 65 % [facility] Segs Absolute 6.89 [facility] WBC (Bld) [#/Vol] 10.3 10*3/uL [facility] Comprehensive Metabolic Pane jesus 04-29-2022 Albumin [Mass/Vol] 4 g/dL 3.5 - 5.2 g/dL [facility] Albumin/Globulin [Mass ratio] 1.1 {ratio} 1.0 - 2.5 [facility] ALP [Catalytic activity/Vol] 75 U/L 40 - 129 U/L [facility] ALT [Catalytic activity/Vol] 33 U/L 5 - 41 U/L [facility] Anion gap [Moles/Vol] 8 mmol/L Low 9 - 17 mmol/L [facility] AST [Catalytic activity/Vol] 29 U/L NINF - 40 U/L [facility] Bilirubin [Mass/Vol] 0.4 mg/dL 0.3 - 1.2 mg/dL [facility] Calcium [Mass/Vol] 9.7 mg/dL 8.6 - 10.4 mg/dL [facility] Chloride [Moles/Vol] 100 mmol/L 98 - 107 mmol/L [facility] CO2 [Moles/Vol] 30 mmol/L 20 - 31 mmol/L [facility] Creatinine [Mass/Vol] 0.79 mg/dL 0.70 - 1.20 mg/dL [facility] GFR/1.73 sq M.predicted MDRD (S/P/Bld) [Vol rate/Area] - PINF [facility] Comment on above: These results [...] 191 mg/dL High 70 - 99 mg/dL [facility] Interpretation and review of laboratory results Abnormal [facility] Potassium [Moles/Vol] 4.2 mmol/L 3.7 - 5.3 mmol/L [facility] Protein [Mass/Vol] 7.5 g/dL 6.4 - 8.3 g/dL [facility] Sodium [Moles/Vol] 138 mmol/L 135 - 144 mmol/L [facility] Urea nitrogen [Mass/Vol] 14 mg/dL 8 - 23 mg/dL [facility] Urea nitrogen/Creatini ne (Bld) [Mass ratio] 18 9 - 20 [facility] Lipid Panelon 04-29-2022 Cholesterol [Mass/Vol] 167 mg/dL NINF - 200 mg/dL [facility] Comment on above: Cholesterol Guidelines: <200 Desirable 200-240 Borderline >240 Undesirable Cholesterol in HDL [Mass/Vol] 39 mg/dL Low 40 - PINF mg/dL [facility] Comment on above: HDL Guidelines: <40 Undesirable 40-59 Borderline >59 Desirable Cholesterol in LDL [Mass/Vol] 97 mg/dL 0 - 130 mg/dL [facility] Comment on above: LDL Guidelines: <100 Desirable 100-129 Near to/above Desirable 130-159 Borderline >159 Undesirable Direct (measured) LDL and calculated LDL are not interchangeable tests. Cholesterol.total /Cholesterol in HDL [Mass ratio] 4.3 {ratio} NINF - 5 [facility] Interpretation and review of laboratory results Abnormal [facility] Triglyceride [Mass/Vol] 156 mg/dL High NINF - 150 mg/dL [facility] Comment on above: Triglyceride Guidelines: <150 Desirable 150-199 Borderline 200-499 High >499 Very high Based on AHA Guidelines for fasting triglyceride, November 2011. [facility] TSHon 04-29-2022 TSH Qn 3.05 m[IU]/L [facility] Basic Metabolic Panelon 05-3 Anion gap [Moles/Vol] 10 mmol/L 9 - 17 mmol/L [facility] Calcium [Mass/Vol] 9.7 mg/dL 8.6 - 10.4 mg/dL [facility] Chloride [Moles/Vol] 102 mmol/L 98 - 107 mmol/L [facility] CO2 [Moles/Vol] 27 mmol/L 20 - 31 mmol/L [facility] Creatinine [Mass/Vol] 0.62 mg/dL Low 0.70 - 1.20 mg/dL [facility] GFR >60 >60 mL/min [facility] GFR Non- >60 >60 mL/min [facility] Glucose [Mass/Vol] 192 mg/dL High 70 - 99 mg/dL [facility] Interpretation and review of laboratory results Abnormal [facility] Potassium [Moles/Vol] 4.0 mmol/L 3.7 - 5.3 mmol/L [facility] Sodium [Moles/Vol] 139 mmol/L 135 - 144 mmol/L [facility] Urea nitrogen (BldV) [Mass/Vol] 11 mg/dL 8 - 23 mg/dL [facility] Urea nitrogen/Creatini ne (Bld) [Mass ratio] 18 [facility] CBC with Auto Differentialon 07-21-2021 Absolute Eos # 0.42 [facility] Absolute Immature Granulocyte 0.04 [facility] Absolute Lymph # 2.29 [facility] Absolute [place] # 0.86 [facility] RS [facility] Basophils (Bld) [#/Vol] 0.11 10*3/uL [facility] Basophils/100 WBC (Bld) 1 % 0 - 2 % [facility] Eosinophils/100 WBC (Bld) 4 % 1 - 4 % [facility] Hematocrit (Bld) [Volume fraction] 43.6 % 40.7 - 50.3 % [facility] Hemoglobin.gastro intestinal spec 1 Ql (Stl) 14.3 g/dL 13.0 - 17.0 g/dL [facility] Immature granulocytes/100 WBC (Bld) 0 % 0 [facility] Interpretation and review of laboratory results Abnormal [facility] Lymphocytes/100 WBC (Bld) 21 % Low 24 - 43 % [facility] MCH (RBC) [Entitic mass] 29.2 pg 25.2 - 33.5 pg [facility] MCHC (RBC) [Mass/Vol] 32.8 g/dL 28.4 - 34.8 g/dL [facility] MCV (RBC) [Entitic vol] 89.0 fL 82.6 - 102.9 fL [facility] Monocytes/100 WBC (Bld) 8 % 3 - 12 % [facility] NRBC Automated 0.0 0.0 per 100 WBC [facility] Platelet distribution width (Bld) [Ratio] 13.7 % 11.8 - 14.4 % [facility] Platelet mean volume (Bld) [Entitic vol] 9.6 fL 8.1 - 13.5 fL [facility] Platelets (Bld) [#/Vol] 392 10*3/uL [facility] RBC (Bld) [#/Vol] 4.90 10*6/uL 4.21 - 5.7 7 m/uL [facility] Segmented neutrophils/100 WBC (Bld) 66 % High 36 - 65 % [facility] Segs Absolute 7.34 [facility] WBC (Bld) [#/Vol] 11.1 10*3/uL LYNN Polanco [facility] Laboratory - Chemistry and C hemistry - challengeon 07-21-2021 GFR/1.73 sq M.predicted MDRD (S/P/Bld) [Vol rate/Area] [facility] Comment on above: Average GFR for 60-6 9 years old: 85 mL/min/1.73sq m Chronic Kidney Disease: <60 mL/min/1.73sq m Kidney failure: <15 mL/min/1.73sq m eGFR calculated using average adult body mass. Additional eGFR calculator available at: http://www.[employer]/multiple_crcl_2012.htm Stage 1: Some kidney damage normal GFR Stage 2: Mild kidney damage GFR 60-89 Stage 3: Moderate kidney damage GFR 30-59 Stage 4: Severe kidney damage GFR 15-29 Stage 5: Severe kidney damage GFR <15 ESRD - chronic treatment by dialysis or transplant CBC with Auto Differentialon 06-01-2021 Absolute Eos # 0.62 High [facility] th Absolute Immature Granulocyte 0.05 [facility] Absolute Lymph # 2.36 [facility] alth Absolute [place] # 0.78 [facility] Basophils (Bld) [#/Vol] 0.12 10*3/uL [facility] Basophils/100 WBC (Bld) 1 % 0 - 2 % [facility] Eosinophils/100 WBC (Bld) 6 % High 1 - 4 % [facility] Hematocrit (Bld) [Volume fraction] 44.6 % 40.7 - 50.3 % [facility] Hemoglobin.gastro intestinal spec 1 Ql (Stl) 14.4 g/dL 13.0 - 17.0 g/dL [facility] Immature granulocytes/100 WBC (Bld) 1 % High 0 [facility] Interpretation and review of laboratory results Abnormal [facility] Lymphocytes/100 WBC (Bld) 24 % 24 - 43 % [facility] MCH (RBC) [Entitic mass] 28.7 pg 25.2 - 33.[address] [facility] MCHC (RBC) [Mass/Vol] 32.3 g/dL 28.4 - 34.8 g/dL [facility] MCV (RBC) [Entitic vol] 89.0 fL 82.6 - 102.[address] [facility] Monocytes/100 WBC (Bld) 8 % 3 - 12 % [facility] NRBC Automated 0.0 0.[address] [facility] Platelet distribution width (Bld) [Ratio] 13.9 % 11.8 - 14.4 % [facility] Platelet mean volume (Bld) [Entitic vol] 9.3 fL 8.1 - 13.[address] [facility] Platelets (Bld) [#/Vol] 378 10*3/uL [facility] RBC (Bld) [#/Vol] 5.01 10*6/uL 4.21 - 5.7 7 m/uL [facility] Segmented neutrophils/100 WBC (Bld) 60 % 36 - 65 % [facility] Segs Absolute 5.92 [facility] (Bld) [#/Vol] 9.9 10*3/uL [facility] Comprehensive Metabolic Pane jesus 06-01-2021 Albumin [Mass/Vol] 4.2 g/dL 3.5 - 5.2 g/dL [facility] Albumin/Globulin [Mass ratio] 1.4 {ratio} [facility] ALP (Bld) [Catalytic activity/Vol] 75 U/L 40 - 129 U/L [facility] ALT [Catalytic activity/Vol] 43 U/L High 5 - 41 U/L [facility] Anion gap [Moles/Vol] 13 mmol/L 9 - 17 mmol/L [facility] AST [Catalytic activity/Vol] 32 U/L <40 [facility] Bilirubin [Mass/Vol] 0.45 mg/dL 0.3 - 1.2 mg/dL [facility] Calcium [Mass/Vol] 9.8 mg/dL 8.6 - 10.4 mg/dL [facility] Chloride [Moles/Vol] 101 mmol/L 98 - 107 mmol/L [facility] CO2 [Moles/Vol] 24 mmol/L 20 - 31 mmol/L [facility] Creatinine [Mass/Vol] 0.79 mg/dL 0.70 - 1.20 mg/dL [facility] Free PSA/Total PSA [Mass fraction] 7.3 g/dL 6.4 - 8.3 g/dL [facility] GFR >60 >60 mL/min [facility] GFR Non- >60 >60 mL/min [facility] Glucose [Mass/Vol] 244 mg/dL High 70 - 99 mg/dL [facility] Interpretation and review of laboratory results Abnormal [facility] Potassium [Moles/Vol] 3.8 mmol/L 3.7 - 5.3 mmol/L [facility] Sodium [Moles/Vol] 138 mmol/L 135 - 144 mmol/L [facility] Urea nitrogen (BldV) [Mass/Vol] 13 mg/dL 8 - 23 mg/dL [facility] Urea nitrogen/Creatini ne (Bld) [Mass ratio] 16 [facility] Laboratory - Chemistry and C hemistry - challengeon 06-01-2021 GFR/1.73 sq M.predicted MDRD (S/P/Bld) [Vol rate/Area] [facility] Comment on above: Average GFR for 60-6 9 years old: 85 mL/min/1.73sq m Chronic Kidney Disease: <60 mL/min/1.73sq m Kidney failure: <15 mL/min/1.73sq m eGFR calculated using average adult body mass. Additional eGFR calculator available at: http://www.geolad/multiple_crcl_2012.htm Stage 1: Some kidney damage normal GFR Stage 2: Mild kidney damage GFR 60-89 Stage 3: Moderate kidney damage GFR 30-59 Stage 4: Severe kidney damage GFR 15-29 Stage 5: Severe kidney damage GFR <15 ESRD - chronic treatment by dialysis or transplant Lipid Panelon 06-01-2021 Cholesterol [Mass/Vol] 148 mg/dL <200 [facility] Comment on above: Cholesterol Guidelines: <200 Desirable 200-240 Borderline >240 Undesirable Cholesterol in HDL [Mass/Vol] 35 mg/dL Low >40 [facility] Comment on above: HDL Guidelines: <40 Undesirable 40-59 Borderline >59 Desirable Cholesterol in LDL [Mass/Vol] 80 mg/dL 0 - 130 mg/dL [facility] Comment on above: LDL Guidelines: <100 Desirable 100-129 Near to/above Desirable 130-159 Borderline >159 Undesirable Direct (measured) LDL and calculated LDL are not interchangeable tests. Cholesterol.total /Cholesterol in HDL [Mass ratio] 4.2 {ratio} <5 [facility] Interpretation and review of laboratory results Abnormal [facility] Triglyceride [Mass/Vol] 164 mg/dL High <150 [facility] Comment on above: Triglyceride Guidelines: <150 Desirable 150-199 Borderline 200-499 High >499 Very high Based on AHA Guidelines for fasting triglyceride, November 2011. [facility] PSA Screeningon 06-01-2021 [facility] CBC Auto Differentialon 12-22 Basophils (Bld) [#/Vol] 0.14 10*3/uL [place] Basophils/100 WBC (Bld) 1 % 0 - 2 % [place] Differential Type NOT REPORTED [place] Eosinophils (Bld) [#/Vol] 0.56 10*3/uL [place] Eosinophils/100 WBC (Bld) 5 % High 1 - 4 % [place] Erythrocyte distribution width (RBC) [Ratio] 13.9 % 11.8 - 14.4 % [place] Hematocrit (Bld) [Volume fraction] 43.8 % 40.7 - 50.3 % [place] Hemoglobin (Bld) [Mass/Vol] 13.9 g/dL 13 - 17 g/dL [place] Immature granulocytes (Bld) [#/Vol] 0.06 10*3/uL [place] Immature granulocytes (Bld) [#/Vol] 1 % High 0 [place] Interpretation and review of laboratory results Abnormal [place] Lymphocytes (Bld) [#/Vol] 2.18 10*3/uL [place] Lymphocytes/100 WBC (Bld) 19 % Low 24 - 43 % [place] MCH (RBC) [Entitic mass] 28.7 pg 25.2 - 33.5 pg [place] MCHC (RBC) [Mass/Vol] 31.7 g/dL 28.4 - 34.8 g/dL [place] MCV (RBC) [Entitic vol] 90.5 fL 82.6 - 102.9 fL [place] Monocytes (Bld) [#/Vol] 0.87 10*3/uL [place] Monocytes/100 WBC (Bld) 8 % 3 - 12 % [place] Platelet mean volume (Bld) [Entitic vol] 8.9 fL 8.1 - 13.5 fL [place] Platelets (Bld) [#/Vol] NOT REPORTED [place] Platelets (Bld) [#/Vol] 376 10*3/uL [place] RBC (Bld) [#/Vol] 4.84 10*6/uL 4.21 - 5.7 7 m/uL [place] RBC morphology finding Nom (Bld) NOT REPORTED [place] Segmented neutrophils/100 WBC (Bld) 66 % High 36 - 65 % [place] Segs Absolute 7.52 [place] WBC (Bld) [#/Vol] 0.0 10*3/uL 0.0 per 10 0 WBC [place] WBC (Bld) [#/Vol] 11.3 10*3/uL [place] WBC Morphology NOT REPORTED [place] Comprehensive Metabolic Pane jesus 01-08-2020 Albumin [Mass/Vol] 4.4 g/dL 3.5 - 5.2 g/dL [place] Albumin/Globulin [Mass ratio] 1.4 {ratio} [place] ALP [Catalytic activity/Vol] 63 U/L 40 - 129 U/L [place] ALT [Catalytic activity/Vol] 35 U/L 5 - 41 U/L [place] Anion gap [Moles/Vol] 14 mmol/L 9 - 17 mmol/L [place] AST [Catalytic activity/Vol] 31 U/L <40 [place] Bilirubin Ql (U) 0.30 mg/dL 0.3 - 1.2 mg/dL [place] Bun/Cre Ratio 20 [place] Calcium [Mass/Vol] 10.0 mg/dL 8.6 - 10.4 mg/dL [place] Chloride [Moles/Vol] 99 mmol/L 98 - 107 mmol/L [place] CO2 [Moles/Vol] 24 mmol/L 20 - 31 mmol/L [place] Creatinine [Mass/Vol] 0.71 mg/dL 0.7 - 1.2 mg/dL [place] GFR >60 >60 mL/min [place] GFR Non- >60 >60 mL/min [place] Glucose [Mass/Vol] 225 mg/dL High 70 - 99 mg/dL [place] Interpretation and review of laboratory results Abnormal [place] Potassium [Moles/Vol] 4.0 mmol/L 3.7 - 5.3 mmol/L [place] Protein [Mass/Vol] 7.5 g/dL 6.4 - 8.3 g/dL [place] Sodium [Moles/Vol] 137 mmol/L 135 - 144 mmol/L [place] Urea nitrogen [Mass/Vol] 14 mg/dL 8 - 23 mg/dL [place] Lipid Panelon 01-08-2020 Cholesterol [Mass/Vol] 144 mg/dL <200 [place] Comment on above: Cholesterol Guidelines: <200 Desirable 200-240 Borderline >240 Undesirable Cholesterol in HDL [Mass/Vol] 34 mg/dL Low >40 [place] Comment on above: HDL Guidelines: <40 Undesirable 40-59 Borderline >59 Desirable Cholesterol in LDL [Mass/Vol] 84 mg/dL 0 - 130 mg/dL [place] Comment on above: LDL Guidelines: <100 Desirable 100-129 Near to/above Desirable 130-159 Borderline >159 Undesirable Direct (measured) LDL and calculated LDL are not interchangeable tests. Cholesterol in VLDL [Mass/Vol] NOT REPORTED 1 - 30 mg/dL [place] Cholesterol.total /Cholesterol in HDL [Mass ratio] 4.2 {ratio} <5 [place] Interpretation and review of laboratory results Abnormal [place] Triglyceride [Mass/Vol] 130 mg/dL <150 [place] Comment on above: Triglyceride Guidelines: <150 Desirable 150-199 Borderline 200-499 High >499 Very high Based on AHA Guidelines for fasting triglyceride, November 2011. Metabolic Panelon 01-08-2020 GFR/1.73 sq M predicted among non-blacks MDRD (S/P/Bld) [Vol rate/Area] [place] Comment on above: Stage 1: Some [...] body mass. Additional eGFR calculator available at: http://www.[employer]/multiple_crcl_2012.htm Microalbumin, Uron 0 Albumin/Creatinin e DL <= 20 mg/L (24H U) [Mass ratio] 53 mg/L High <21 [place] Albumin/Creatinin e DL <= 20 mg/L (U) [Ratio] 28 High <17 mcg/mg creat [place] Creatinine [Mass/Vol] 189.9 mg/dL 39 - 259 mg/dL [place] Interpretation and review of laboratory results Abnormal [place] Cult,Aerobe/Anaerobeon 01-14 Cult,Aerobe/Anaer obe Specimen Description .BUTTOCK Special Requests NOT REPORTED [...] Trimethoprim/Sulfa <=20 SUSCEPTIBLE Piperacillin/Tazobactam <=4 SUSCEPTIBLE Normal [facility] Comment on above: Performed By: #### A ANC #### [facility] [address] [place] [address] Cleaner Assistant: Dexter Madera MD [facility] [address] [place] [address] Cleaner Assistant: Morgan Andino MD CBC auto differentialon 12-23 Basophils (Bld) [#/Vol] 0.10 10*3/uL [place] Basophils/100 WBC (Bld) 1 % 0 - 2 % [place] Differential Type YES [place] Eosinophils (Bld) [#/Vol] 0.10 10*3/uL [place] Eosinophils/100 WBC (Bld) 1 % 0 - 5 % [place] Erythrocyte distribution width (RBC) [Ratio] 13.9 % 12.1 - 15.2 % [place] Hematocrit (Bld) [Volume fraction] 40.3 % Low 41 - 53 % [place] Hemoglobin (Bld) [Mass/Vol] 13.5 g/dL 13.5 - 17.5 g/dL [place] Interpretation and review of laboratory results Abnormal [place] Lymphocytes (Bld) [#/Vol] 1.40 10*3/uL [place] Lymphocytes/100 WBC (Bld) 11 % Low 13 - 44 % [place] MCH (RBC) [Entitic mass] 28.9 pg 26 - 34 pg [place] MCHC (RBC) [Mass/Vol] 33.5 g/dL 31 - 37 g/dL [place] MCV (RBC) [Entitic vol] 86.1 fL 80 - 100 fL [place] Monocytes (Bld) [#/Vol] 1.10 10*3/uL [place] Monocytes/100 WBC (Bld) 9 % 5 - 9 % [place] Platelet mean volume (Bld) [Entitic vol] NOT REPORTED 6 - 12 fL [place] Platelets (Bld) [#/Vol] 317 10*3/uL [place] Platelets (Bld) [#/Vol] NOT REPORTED [place] RBC (Bld) [#/Vol] 4.68 10*6/uL 4.5 - 5.9 m/uL [place] RBC morphology finding Nom (Bld) NOT REPORTED [place] Segmented neutrophils/100 WBC (Bld) 78 % High 39 - 75 % [place] Segs Absolute 9.70 High [place] WBC (Bld) [#/Vol] NOT REPORTED per 100 WBC [place] WBC (Bld) [#/Vol] 12.3 10*3/uL [place] WBC Morphology NOT REPORTED [place] CBC with Diffon 01-12-2019 Abs. Basophil 0.10 k/uL Normal 0.0-0.2 [facility] Comment on above: Performed By: #### C DP #### [facility] [address] [place] [address] Cleaner Assistant: Morgan Andino MD Abs.Neutrophil (Seg) 9.70 k/uL High 2.1-6.5 [facility] Comment on above: Performed By: #### C DP #### [facility] [address] [place] [address] Cleaner Assistant: Morgan Andino MD Auto Diff Performed YES Normal [facility] Comment on above: Performed By: #### C DP #### [facility] [address] [place] [address] Cleaner Assistant: Morgan Andino MD Basophils/100 WBC (Bld) 1 % Normal 0-2 [facility] Comment on above: Performed By: #### C DP #### [facility] [address] [place] [address] Cleaner Assistant: Morgan Andino MD Eosinophils (Bld) [#/Vol] 0.10 10*3/uL Normal 0.0-0.4 [facility] Comment on above: Performed By: #### C DP #### [facility] [address] [place], [place] [id number] Cleaner Assistant: Morgan Andino MD Eosinophils/100 WBC (Bld) 1 % Normal 0-5 [facility] Comment on above: Performed By: #### C DP #### [facility] [address] [place] [address] Cleaner Assistant: Morgan Andino MD Erythrocyte distribution width (RBC) [Ratio] 13.9 % Normal 12.1-15.2 [facility] Comment on above: Performed By: #### C DP #### [facility] [address] [place] [address] Cleaner Assistant: Morgan Andino MD Hematocrit (Bld) [Volume fraction] 40.3 % Low 41-53 [facility] Comment on above: Performed By: #### C DP #### [facility] [address] [place] [address] Cleaner Assistant: Morgan Andino MD Hemoglobin (Bld) [Mass/Vol] 13.5 g/dL Normal 13.5-17.5 [facility] Comment on above: Performed By: #### C DP #### [facility] [address] [place] [address] Cleaner Assistant: Morgan Andino MD Lymphocytes (Bld) [#/Vol] 1.40 10*3/uL Normal 1.0-4.8 [facility] Comment on above: Performed By: #### C DP #### [facility] [address] [place] [address] Cleaner Assistant: Morgan Anidno MD Lymphocytes/100 WBC (Bld) 11 % Low 13-44 [facility] Comment on above: Performed By: #### C DP #### [facility] [address] [place] [address] Cleaner Assistant: Morgan Andino MD MCH (RBC) [Entitic mass] 28.9 pg Normal 26-34 [facility] Comment on above: Performed By: #### C DP #### [facility] [address] [place] [address] Cleaner Assistant: Morgan Andino MD MCHC (RBC) [Mass/Vol] 33.5 g/dL Normal 31-37 [facility] Comment on above: Performed By: #### C DP #### [facility] [address] [place] [address] Cleaner Assistant: Morgan Andino MD MCV (RBC) [Entitic vol] 86.1 fL Normal 80-100 [facility] Comment on above: Performed By: #### C DP #### [facility] [address] [place] [address] ([phone] Cleaner Assistant: Morgan Andino MD Monocytes (Bld) [#/Vol] 1.10 10*3/uL High 0.0-1.0 [facility] Comment on above: Performed By: #### C DP #### [facility] [address] [place] [address] ([phone] Cleaner Assistant: Morgan Andino MD Monocytes/100 WBC (Bld) 9 % Normal 5-9 [facility] Comment on above: Performed By: #### C DP #### [facility] [address] [place] [address] ([phone] Cleaner Assistant: Morgan Andino MD Neutrophil (Seg) 78 % High 39-75 [facility] Comment on above: Performed By: #### C DP #### [facility] [address] [place] [address] Cleaner Assistant: Morgan Andino MD Platelets (Bld) [#/Vol] 317 10*3/uL Normal 140-450 [facility] Comment on above: Performed By: #### C DP #### [facility] [address] [place] [address] ([phone] Cleaner Assistant: Morgan Andino MD RBC (Bld) [#/Vol] 4.68 10*6/uL Normal 4.5-5.9 [facility] Comment on above: Performed By: #### C DP #### [facility] [address] [place] [address] ([phone] Cleaner Assistant: Morgan Andino MD WBC (Bld) [#/Vol] 12.3 10*3/uL High 3.5-11.0 [facility] Comment on above: Performed By: #### C DP #### [facility] [address] [place], [place] [phone] Cleaner Assistant: Morgan Andino MD Abs.Imm.Granulocy te NOT REPORTED Normal 0.00-0.30 [facility] Comment on above: Performed By: #### C DP #### [facility] [address] [place] [address] Cleaner Assistant: Morgan Andino MD Immature granulocytes (Bld) [#/Vol] NOT REPORTED Normal 0 [facility] Comment on above: Performed By: #### C DP #### [facility] [address] [place] [address] Cleaner Assistant: Morgna Andino MD NRBC Automated NOT REPORTED Normal [facility] Comment on above: Performed By: #### C DP #### [facility] [address] [place], [place] [phone] Cleaner Assistant: Morgan Andino MD Platelet mean volume (Bld) [Entitic vol] NOT REPORTED Normal 6.0-12.0 [facility] Comment on above: Performed By: #### C DP #### [facility] [address] [place], [place] [phone] Cleaner Assistant: Morgan Andino MD Platelets (Bld) [#/Vol] NOT REPORTED Normal [facility] Comment on above: Performed By: #### C DP #### [facility] [address] [place], [place] [phone] Cleaner Assistant: Morgan Andino MD RBC morphology finding Nom (Bld) NOT REPORTED Normal [facility] Comment on above: Performed By: #### C DP #### [facility] [address] [place], [place] [phone] Cleaner Assistant: Morgan Andino MD WBC Morphology NOT REPORTED Normal [facility] Comment on above: Performed By: #### C DP #### [facility] [address] [place] [address] Cleaner Assistant: Morgan Andino MD Glucose, Whole Bloodon 01-12 Glucose [Mass/Vol] 242 mg/dL High 65 - 99 mg/dL [place] Interpretation and review of laboratory results Abnormal [place] Glucose [Mass/Vol] 261 mg/dL High 65 - 99 mg/dL [place] Interpretation and review of laboratory results Abnormal [place] OPERATIVE REPORTon 9 OPERATIVE REPORT [facility] [address] [place] [address] OPERATIVE REPORT PATIENT NAME: KWABENA MESSER : 1950 MED REC NO: [id number] ROOM: ACCOUNT NO: [id number] ADMIT DATE: 01/12/2019 PROVIDER: Jessica Cooper DATE OF PROCEDURE: 01/12/2019 ATTENDING SURGEON: Jessica Cooper MD PCP: Phil Crenshaw MD PREOPERATIVE DIAGNOSIS: Perirectal/gluteal abscess. POSTOPERATIVE DIAGNOSIS: [...] gluteal/perianal abscess fluid for culture. DRAINS: A Brimson with half-inch Nu Gauze. COMPLICATIONS: None. DISPOSITION: [...] a wound check. My thanks to Dr. Crenshaw for the consultation. JESSICA COOPER [id number] Doc#: [id number] CC: Phil Crenshaw Eric [facility] 01-12-2019 Immature granulocytes (Bld) [#/Vol] NOT REPORTED 0 % [facility] [place], [place] Hemoglobin A1Con 09-25-2017 Glucose mass conc 197 mg/dL Normal [facility] Comment on above: Result Comment: The ADA and AACC recommend providing the estimated average glucose result to permit better patient understanding of their HBA1c result. Performed By: #### C DP, BMP, LIPR, GLYHGB ####[facility] [address] [place] [address] Hemoglobin A1c/Hemoglobin.to shahid mass fraction (Bld) 8.5 % High 4.0-6.0 [facility] Comment on above: Performed By: #### C DP, BMP, LIPR, GLYHGB ####[facility] [address] [place] [address] Basic Metabolic Profon 09-22 (cont.) Normal [facility] Comment on above: Result Comment: Aver age GFR for 60-69 years old: 85 mL/min/1.73sq mChronic Kidney Disease: <60 mL/min/1.73sq mKidney failure: <15 mL/min/1.73sq meGFR calculated using average adult body mass. Additional eGFR calculator available at:http://www.geolad/multiple_crcl_2012.htm Performed By: #### C DP, BMP, LIPR, GLYHGB ####[facility] [address] [place] [address] Anion gap 3 molar conc 14 mmol/L Normal 9-17 [facility] Comment on above: Performed By: #### C DP, BMP, LIPR, GLYHGB ####[facility] [address] [place] [address] Calcium mass conc 9.2 mg/dL Normal 8.6-10.4 [facility] Comment on above: Performed By: #### C DP, BMP, LIPR, GLYHGB ####[facility] [address] [place] [address] Chloride molar conc 99 mmol/L Normal 98-107 [facility] Comment on above: Performed By: #### C DP, BMP, LIPR, GLYHGB ####[facility] [address] [place] [address] CO2 molar conc 25 mmol/L Normal 20-31 [facility] Comment on above: Performed By: #### C DP, BMP, LIPR, GLYHGB ####[facility] [address] [place] [address] Creatinine mass conc 0.58 mg/dL Low 0.70-1.20 [facility] Comment on above: Performed By: #### C DP, BMP, LIPR, GLYHGB ####[address] [place] [address] GFR, Amer >60 Normal >60 [facility] Comment on above: Performed By: #### C DP, BMP, LIPR, GLYHGB ####[facility] [address] [place] [address] GFR,non Amer >60 Normal >60 [facility] Comment on above: Performed By: #### C DP, BMP, LIPR, GLYHGB ####[facility] [address] [place] [address] Glucose mass conc 144 mg/dL High 70-99 [facility] Comment on above: Performed By: #### C DP, BMP, LIPR, GLYHGB ####[facility] [address] [place] [address] Potassium molar conc 3.8 mmol/L Normal 3.7-5.3 [facility] Comment on above: Performed By: #### C DP, BMP, LIPR, GLYHGB ####[facility] [address] [place] [address] Sodium molar conc 138 mmol/L Normal 135-144 [facility] Comment on above: Performed By: #### C DP, BMP, LIPR, GLYHGB ####[address] [address] Urea nitrogen mass conc 12 mg/dL Normal 8-23 [facility] Comment on above: Performed By: #### C DP, BMP, LIPR, GLYHGB ####[address] [address] BUN/CRE Ratio NOT REPORTED Normal 9-20 [facility] Comment on above: Performed By: #### C DP, BMP, LIPR, GLYHGB ####[address] [address] Staging: NOT REPORTED Normal [facility] Comment on above: Performed By: #### C DP, BMP, LIPR, GLYHGB ####[address] [address] CBC with Diffon 09-22-2017 Abs. Basophil 0.14 k/uL Normal 0.00-0.20 [facility] Comment on above: Performed By: #### C DP, BMP, LIPR, GLYHGB ####[address] [address] Abs.Imm.Granulocy te 0.06 k/uL Normal 0.00-0.30 [facility] Comment on above: Performed By: #### C DP, BMP, LIPR, GLYHGB ####[address] [address] Abs.Neutrophil (Seg) 6.21 k/uL Normal 1.50-8.10 [facility] Comment on above: Performed By: #### C DP, BMP, LIPR, GLYHGB ####[address] [address] Basophils/100 WBC Auto (Bld) 1 % Normal 0-2 [facility] Comment on above: Performed By: #### C DP, BMP, LIPR, GLYHGB ####[address] [address] Eosinophils Auto #/vol (Bld) 0.70 10*3/uL High 0.00-0.44 [facility] Comment on above: Performed By: #### C DP, BMP, LIPR, GLYHGB ####[address] [address] Eosinophils/100 WBC Auto (Bld) 7 % High 1-4 [facility] Comment on above: Performed By: #### C DP, BMP, LIPR, GLYHGB ####[address] [address] Erythrocyte distribution width Auto Ratio (RBC) 13.9 % Normal 11.8-14.4 [facility] Comment on above: Performed By: #### C DP, BMP, LIPR, GLYHGB ####[address] [address] Hematocrit Auto Volume Fraction (Bld) 44.5 % Normal 40.7-50.3 [facility] Comment on above: Performed By: #### C DP, BMP, LIPR, GLYHGB ####[address] [address] Hemoglobin mass conc (Bld) 14.5 g/dL Normal 13.0-17.0 [facility] Comment on above: Performed By: #### C DP, BMP, LIPR, GLYHGB ####[address] [address] Immature granulocytes #/vol (Bld) 1 % High 0 [facility] Comment on above: Performed By: #### C DP, BMP, LIPR, GLYHGB ####[address] [address] Lymphocytes Auto #/vol (Bld) 2.80 10*3/uL Normal 1.10-3.70 [facility] Comment on above: Performed By: #### C DP, BMP, LIPR, GLYHGB ####[address] [address] Lymphocytes/100 WBC Auto (Bld) 26 % Normal 24-43 [facility] Comment on above: Performed By: #### C DP, BMP, LIPR, GLYHGB ####[address] [address] MCH Auto Entitic mass (RBC) 27.9 pg Normal 25.2-33.5 [facility] Comment on above: Performed By: #### C DP, BMP, LIPR, GLYHGB ####[address] [address] MCHC Auto mass conc (RBC) 32.6 g/dL Normal 28.4-34.8 [facility] Comment on above: Performed By: #### C DP, BMP, LIPR, GLYHGB ####[address] [address] MCV Auto Entitic volume (RBC) 85.7 fL Normal 82.6-102.9 [facility] Comment on above: Performed By: #### C DP, BMP, LIPR, GLYHGB ####[address] [address] Monocytes Auto #/vol (Bld) 0.94 10*3/uL Normal 0.10-1.20 [facility] Comment on above: Performed By: #### C DP, BMP, LIPR, GLYHGB ####[address] [address] Monocytes/100 WBC Auto (Bld) 9 % Normal 3-12 [facility] Comment on above: Performed By: #### C DP, BMP, LIPR, GLYHGB ####[address] [address] Neutrophil (Seg) 56 % Normal 36-65 [facility] Comment on above: Performed By: #### C DP, BMP, LIPR, GLYHGB ####[address] [address] NRBC Automated 0.0 per 100 WBC Normal 0.0 [facility] Comment on above: Performed By: #### C DP, BMP, LIPR, GLYHGB ####[address] [address] Platelet mean volume Auto Entitic volume (Bld) 8.8 fL Normal 8.1-13.5 [facility] Comment on above: Performed By: #### C DP, BMP, LIPR, GLYHGB ####[address] [address] Platelets Auto #/vol (Bld) 316 10*3/uL Normal 138-453 [facility] Comment on above: Performed By: #### C DP, BMP, LIPR, GLYHGB ####[address] [address] RBC Auto #/vol (Bld) 5.19 10*6/uL Normal 4.21-5.77 [facility] Comment on above: Performed By: #### C DP, BMP, LIPR, GLYHGB ####[address] [address] WBC Auto #/vol (Bld) 10.9 10*3/uL Normal 3.5-11.3 [facility] Comment on above: Performed By: #### C DP, BMP, LIPR, GLYHGB ####[facility] [address]mbh[address] [place] [address] Auto Diff Performed NOT REPORTED Normal [facility] Comment on above: Performed By: #### C DP, BMP, LIPR, GLYHGB ####[facility] [address] [place] [address] Platelets Auto #/vol (Bld) NOT REPORTED Normal [facility] Comment on above: Performed By: #### C DP, BMP, LIPR, GLYHGB ####[facility] [address] [place] [address] RBC morphology finding Nom (Bld) NOT REPORTED Normal [facility] Comment on above: Performed By: #### C DP, BMP, LIPR, GLYHGB ####[facility] [address] [place] [address] WBC Morphology NOT REPORTED Normal [facility] Comment on above: Performed By: #### C DP, BMP, LIPR, GLYHGB ####[facility] [address] [place] [address] CTA HEAD W CONTRASTon 2017 CTA HEAD [...] the radiation dose to as low as reasonablyachievable.COM PARISON:None.HISTORY:ORD ERING SYSTEM PROVIDED HISTORY: STROKEFINDINGS:CTA NECK:AORTIC ARCH/ARCH VESSELS: There is a normal branch pattern of the aorticarch. No significant stenosis is seen of the innominate artery or subclavianarteries.CAROT ID ARTERIES: The common carotid arteries are normal [...] apices are clear. No cervical or superior mediastinallymphadenopat hy. The visualized portion of the larynx and [...] head and neck.Interpreted by:MARY Duffyigned by:Luiz Mariano MD09/22/17inal result Normal [facility] CTA NECK W CONTRASTon 2017 CTA NECK [...] the radiation dose to as low as reasonablyachievable.COM PARISON:None.HISTORY:ORD ERING SYSTEM PROVIDED HISTORY: STROKEFINDINGS:CTA NECK:AORTIC ARCH/ARCH VESSELS: There is a normal branch pattern of the aorticarch. No significant stenosis is seen of the innominate artery or subclavianarteries.CAROT ID ARTERIES: The common carotid arteries are normal [...] apices are clear. No cervical or superior mediastinallymphadenopat hy. The visualized portion of the larynx and [...] head and neck.Interpreted by:MARY Duffyigned by:Luiz Mariano MD8/2/18Final result Normal [facility] Consulton 09-22-2017 HIM IP Note OR Lettuce Cutter Normal [facility] HIM IP Note OR Lettuce Cutter Normal [facility] Discharge Summaryon 09-23-19 18 HIM IP Note OR Lettuce Cutter Normal [facility] ED Noteon 09-22-2017 HIM IP Note OR Lettuce Cutter Normal [facility] HIM IP Note OR Lettuce Cutter Normal [facility] ED Provider Noteon 8 HIM IP Note OR Lettuce Cutter Normal [facility] History and Physicalon 09-22 HIM IP Note OR Lettuce Cutter Normal [facility] Lipid Profileon 09-22-2017 Cholesterol in HDL mass conc 28 mg/dL Low >40 [facility] Comment on above: Result Comment: HDL Guidelines: <40 Undesirable 40-59 Borderline >59 Desirable Performed By: #### C DP, BMP, LIPR, GLYHGB ####[address] [address] Cholesterol in LDL mass conc 79 mg/dL Normal 0-130 [facility] Comment on above: Result Comment: LDL Guidelines: <100 Desirable 100-129 Near to/above Desirable 130-159 Borderline >159 UndesirableDirect (measured) LDL and calculated LDL are not interchangeable tests. Performed By: #### C DP, BMP, LIPR, GLYHGB ####[address] [address] Cholesterol mass conc 135 mg/dL Normal <200 [facility] Comment on above: Result Comment: Chol esterol Guidelines: <200 Desirable 200-240 Borderline >240 Undesirable Performed By: #### C DP, BMP, LIPR, GLYHGB ####[address] [address] Cholesterol.total /Cholesterol in HDL mass ratio 4.8 {ratio} Normal <5 [facility] Comment on above: Performed By: #### C DP, BMP, LIPR, GLYHGB ####[address] [address] Triglyceride mass conc 140 mg/dL Normal <150 [facility] Comment on above: Result Comment: Trig lyceride Guidelines: <150 Desirable 150- 199 Borderline 200-499 High >499 Very high Based on AHA Guidelines for fasting triglyceride, November 2011. Performed By: #### C DP, BMP, LIPR, GLYHGB ####[address] [address] Cholesterol in VLDL mass conc NOT REPORTED Normal 1-30 [facility] Comment on above: Performed By: #### C DP, BMP, LIPR, GLYHGB ####[address] [place] [address] MRI BRAIN WO CONTRASTon MRI BRAIN WO CONTRAST EXAMINATION:MRI OF THE BRAIN WITHOUT CONTRAST 09/22/2017 9:07 amTECHNIQUE:Multiplanar multisequence MRI of the brain was performed without theadministration of intravenous contrast.COMPARISON:None .HISTORY:ORDERING SYSTEM PROVIDED HISTORY: STROKEFINDINGS:INTRACRAN IAL STRUCTURES/VENTRICLES: Ventricles sulci are normal for thepatient's [...] - In Basket (authorizing provider)Final result Normal [facility] Progress Noteon 09-22-2017 HIM IP Note OR Lettuce Cutter Normal [facility] HIM IP Note OR Lettuce Cutter Normal [facility] HIP RIGHT 1 OR 2 VWS WITH PE LVISon 02-03-2017 HIP RIGHT 1 OR 2 VWS WITH PELVIS [facility] [address]vhdy[address] [place] [address] ==Patient Name: KWABENA MESSER : 1950Sex: MAge: Race: WhiteMRN: [id number]. Location: 84Patient Status: OVisit #: [id number] Date: 02/03/2017 1:25:00 PMCompleted Date: 02/03/2017 01:36 PMRequesting Provider: ONEIL WILLIAMSON Attending Provider: ONEIL WILLIAMSON Report Copy To: Signs & Symptoms: Z47.1 Aftercare following joint replacement surgery [id number]: AthenaComments: , , , Ordering Provider - ONEIL WILLIAMSON MD , Rendering Provider - ONEIL WILLIAMSON MD , Exam: HIP RIGHT 1 OR 2 VWS WITH PELVISAccession #: [id number] =========HIP RIGHT 1 OR 2 VWS WITH PELVIS [...] arthroplasty Electronically signed by:Keri Durand. Transcribed by: [id number], User Resident: Electronically Signed by: KERI DURAND @ 02/03/2017 01:52 PM [facility] Comment on above: Order Comment: , , = ========= , Ordering Provider - ONEIL WILLIAMSON MD , Rendering Provider - ONEIL WILLIAMSON MD , C REACTIVE PROTEINon 01-04- 017 C reactive protein (CRP) 10.5 mg/L High 0.0-7.0 [facility] Comment on above: Performed By: #### 4 6447 ####[facility] CBC COMPLETE BLOOD COUNTon 03-06-2016 Erythrocyte distribution width Auto Ratio (RBC) 14.8 % Normal 11.5-16.9 [facility] Comment on above: Performed By: #### 4 6404 ####[facility] Erythrocytes (RBC) 4.65 mill/mm3 Normal 4.30-5.90 [facility] Comment on above: Performed By: #### 4 6445 ####[facility] Hematocrit (HCT) 40.2 % Normal 39.0-55.0 The [facility] Comment on above: Performed By: #### 4 6438 ####[facility] Hemoglobin mass conc (Bld) 12.9 g/dL Low 13.9-16.3 [facility] Comment on above: Performed By: #### 4 6479 ####[facility] [place] [address], [facility] MCH 27.7 pg Normal 24.0-32.0 [facility] Comment on above: Performed By: #### 4 6424 ####[facility] MCHC mass conc (RBC) 32.0 g/dL Normal 32.0-36.0 [facility] Comment on above: Performed By: #### 4 6447 ####[facility] [place] [address], [facility] MCV 86.6 fL Normal 80.0-100.0 [facility] Comment on above: Performed By: #### 4 6447 ####[facility] [place] [address], [facility] PLAT CNT 629 Thou/mm3 High 100-400 [facility] Comment on above: Performed By: #### 4 6447 ####[facility] WBC (Leukocytes) 10.4 Thou/mm3 High 4.0-10.0 The [facility] Comment on above: Performed By: #### 4 6447 ####[facility] SEDIMENTATION RATEon 017 SED RATE 50 mm/hr High 0-10 [facility] Comment on above: Performed By: #### 4 6130 ####[facility] CBC W/DIFFon 12-28-2016 Basophils Auto #/vol (Bld) 0.8 % Normal 0.0-2.0 [facility] Comment on above: Performed By: #### 4 9605 ####[facility] [place] [address], [facility] Eosinophils/100 leukocytes 4.0 % Normal 0.0-5.0 [facility] Comment on above: Performed By: #### 4 4665 ####[facility] Erythrocyte distribution width Auto Ratio (RBC) 14.5 % Normal 11.5-16.9 [facility] Comment on above: Performed By: #### 4 1944 ####[facility] Erythrocytes (RBC) 4.34 mill/mm3 Normal 4.30-5.90 [facility] Comment on above: Performed By: #### 4 6420 ####[facility] [facility].[address] Hematocrit (HCT) 37.5 % Low 39.0-55.0 [facility] Comment on above: Performed By: #### 4 6485 ####[facility] Hemoglobin mass conc (Bld) 12.3 g/dL Low 13.9-16.3 [facility] Comment on above: Performed By: #### 4 6436 ####[place] [address] Lymphocytes/100 leukocytes 17.8 % Low 20.0-40.0 [facility] Comment on above: Performed By: #### 4 7216 ####[facility] MCH 28.3 pg Normal 24.0-32.0 [facility] Comment on above: Performed By: #### 4 2376 ####[facility] MCHC mass conc (RBC) 32.7 g/dL Normal 32.0-36.0 [facility] Comment on above: Performed By: #### 4 4254 ####[place] [address] MCV 86.5 fL Normal 80.0-100.0 [facility] Comment on above: Performed By: #### 4 2370 ####[facility] [place] [address], [place] METHOD Normal RBC Morphology Normal [facility] Comment on above: Performed By: #### 4 6447 ####[facility] [facility] [place] [address], [facility] MONOS 8.0 % Normal 2-8 [facility] Comment on above: Performed By: #### 4 6447 ####[facility] [facility] [place] [address], [facility] Neutrophils/100 leukocytes 69.4 % Normal 50-70 [facility] Comment on above: Performed By: #### 4 6447 ####[facility] [facility] [place] [address], [facility] PLAT CNT 689 Thou/mm3 High 100-400 [facility] Comment on above: Performed By: #### 4 6447 ####[facility] [facility] [place] [address], [facility] WBC (Leukocytes) 12.6 Thou/mm3 High 4.0-10.0 The [facility] Comment on above: Performed By: #### 4 6447 ####[facility] [place] [address].[place], [place] [address] [place] [address] HIP RIGHT 1 OR 2 VWS WITH PE LVISon 12-28-2016 HIP RIGHT 1 OR 2 VWS WITH PELVIS [facility] Omocblbwz[address] [place] [address] ==Patient Name: KWABENA MESSER : 1950Sex: MAge: Race: WhiteMRN: [id number]. Location: 84Patient Status: Date: 12/28/2016 11:15:00 AMCompleted Date: 12/28/2016 11:17 AMRequesting Provider: ONEIL WILLIAMSON Attending Provider: Report Copy To: Signs & Symptoms: Z47.1 Aftercare following joint replacement surgery [id number]: AthenaComments: , , , Ordering Provider - ONEIL WILLIAMSON MD , Exam: HIP RIGHT 1 OR 2 VWS WITH PELVISAccession #: [id number] =========HIP RIGHT 1 OR 2 VWS WITH PELVIS [...] above Electronically signed by:Keri Durand. Transcribed by: [email or web address], User Resident: Electronically Signed by: KERI DURAND @ 12/28/2016 12:11 PM Normal [facility] Comment on above: Order Comment: , , = ========= , Ordering Provider - ONEIL WILLIAMSON MD , Discharge Summaryon 12-26-19 Discharge Summary MR#: [id number] [facility] Admitted: 12/16/2016 Discharged: 12/17/2016 Date of : [...] 08:32 P Oneil Williamson M.D...Date Dict: 12/24/2016/02:55 P/Arash Loomis, [facility]ate Trans: 12/25/2016 10:33 A/mmoDN_JN:[id number] cc: Phil Crenshaw M.D. [address] [place] [address] , [address] [address] [place] [facility] Operative Reporton 12-20-201 7 Operative Report MR#: [id number] [facility] Name: Kwabena Messer Room #: 6AB [id number] Discharge 12/17/2016 Date: Birthdate: 1950 OPERATIVE REPORTDATE OF SURGERY: 12/16/2016SURGEON: Oneil Williamson M.D.SURGEON: Oneil Williamson MD.BEEF FARMER: Dr. LoomisANESTHESIA: General anesthesia with fascia iliaca block anesthesia.ESTIMATED BLOOD LOSS: 500 mL.FLUIDS: Per Anesthesia note.COMPLICATIONS: None.SPECIMENS: None.PREOPERATIVE DIAGNOSIS: Right hip osteoarthritis.POSTOPERA TIVE DIAGNOSIS: Right hip osteoarthritis.PROCEDURE : Right total hip arthroplasty.COMPONENTS: 1. Biomet taper lock, size 18, lateral offset [...] The minimus was closed itselfwith #2 interrupted tyqwga-fn-lbzvj suture. The medius to itself with arunning #5 fiber suture. The vastus lateralis with a running #2 Vicrylsuture. The IT band with #2 interrupted ouulzd-yo-ftqik suture. Thesubcutaneous tissue over drain with a running 0-Vicryl suture. The dermiswith 2-0 Vicryl and Biosyn for the skin. Dermabond was applied. Steriledressing applied. At the conclusion of the case, all sponge, needle countscorrect. I was present for the critical portions of this case.Electronically Signed by:Oneil Williamson M.D. 01/05/2017 08:31 P Oneil Williamson M.D.Date Dict: 12/20/2016/09:46 A/Oneil Williamson M.D.Date Trans: 12/20/2016 01:09 P/mmoDN_JN:[id number] cc: Phil Crenshaw M.D. [address] [place] [address] [address] Normal [facility] BASIC METABOLIC PANELon 10-2 Calcium 8.4 mg/dL Low 8.6-10.3 [facility] Comment on above: Order Comment: No: D o not add to previous draw Performed By: #### 5 0103 ####[facility] [place] [address], [facility] Chloride 103 mmol/L Normal 98-107 [facility] Comment on above: Order Comment: No: D o not add to previous draw Performed By: #### 5 0103 ####[facility] [place] [address], [facility] CO2 24 mmol/L Normal 21-31 [facility] Comment on above: Order Comment: No: D o not add to previous draw Performed By: #### 5 0103 ####[facility] [place] [address], [facility] Creatinine 0.72 mg/dL Normal 0.70-1.30 [facility] Comment on above: Order Comment: No: D o not add to previous draw Performed By: #### 5 0103 ####[facility] [place] [address], [facility] eGFR (black) mL/min/{1.73_m2} Normal >60 [facility] Comment on above: Order Comment: No: D o not add to previous draw Performed By: #### 5 0103 ####[facility] [place] [address], [facility] eGFR (non-black) mL/min/{1.73_m2} Normal >60 [facility] Comment on above: Order Comment: No: D o not add to previous draw Performed By: #### 5 0103 ####[facility] [place] [address], [facility] Glucose mass conc 191 mg/dL High 70-100 [facility] Comment on above: Order Comment: No: D o not add to previous draw Performed By: #### 5 0103 ####[facility] [place] [address], [facility] Potassium molar conc 3.9 mmol/L Normal 3.5-5.1 [facility] Comment on above: Order Comment: No: D o not add to previous draw Performed By: #### 5 0103 ####[facility] Sodium 135 mmol/L Low 136-145 [facility] Comment on above: Order Comment: No: D o not add to previous draw Performed By: #### 5 0103 ####[facility]3000 [facility].[address] Urea nitrogen 12 mg/dL Normal 7-25 [facility] Comment on above: Order Comment: No: D o not add to previous draw Performed By: #### 5 0103 ####[facility] [facility].[address] CBC W/DIFFon 12-17-2016 Basophils Auto #/vol (Bld) 0.3 % Normal 0.0-2.0 [facility] Comment on above: Order Comment: No: D o not add to previous draw Performed By: #### 5 0103 ####[facility] Eosinophils/100 leukocytes 1.0 % Normal 0.0-5.0 [facility] Comment on above: Order Comment: No: D o not add to previous draw Performed By: #### 5 0103 ####[facility] Erythrocyte distribution width Auto Ratio (RBC) 15.0 % Normal 11.5-16.9 [facility] Comment on above: Order Comment: No: D o not add to previous draw Performed By: #### 5 0103 ####[facility] Erythrocytes (RBC) 4.01 mill/mm3 Low 4.30-5.90 [facility] Comment on above: Order Comment: No: D o not add to previous draw Performed By: #### 5 0103 ####[facility] [place] [address], [facility] Hematocrit (HCT) 34.7 % Low 39.0-55.0 [facility] Comment on above: Order Comment: No: D o not add to previous draw Performed By: #### 5 0103 ####[facility] Hemoglobin mass conc (Bld) 11.4 g/dL Low 13.9-16.3 [facility] Comment on above: Order Comment: No: D o not add to previous draw Performed By: #### 5 0103 ####[place] [address] [facility].[address] Lymphocytes/100 leukocytes 12.8 % Low 20.0-40.0 [facility] Comment on above: Order Comment: No: D o not add to previous draw Performed By: #### 5 0103 ####[facility] [facility].[address] MCH 28.3 pg Normal 24.0-32.0 [facility] Comment on above: Order Comment: No: D o not add to previous draw Performed By: #### 5 3 ####[facility] [facility] CENTER.[address] MCHC mass conc (RBC) 32.8 g/dL Normal 32.0-36.0 [facility] Comment on above: Order Comment: No: D o not add to previous draw Performed By: #### 5 0103 ####[facility]3000 [facility].[address] MCV 86.5 fL Normal 80.0-100.0 [facility] Comment on above: Order Comment: No: D o not add to previous draw Performed By: #### 5 3 ####[facility] [place] [address], [facility] METHOD Normal RBC Morphology Normal [facility] Comment on above: Order Comment: No: D o not add to previous draw Performed By: #### 5 0103 ####[facility] [place] [address], [facility] MONOS 10.4 % High 2-8 [facility] Comment on above: Order Comment: No: D o not add to previous draw Performed By: #### 5 0103 ####[facility]3000 [facility] [place] [address], [facility] Neutrophils/100 leukocytes 75.5 % High 50-70 [facility] Comment on above: Order Comment: No: D o not add to previous draw Performed By: #### 5 0103 ####[facility]3000 [facility] [place] [address], [facility] PLAT CNT 320 Thou/mm3 Normal 100-400 [facility] Comment on above: Order Comment: No: D o not add to previous draw Performed By: #### 5 0103 ####[place] [address] [facility] [place] [address], [facility] WBC (Leukocytes) 12.3 Thou/mm3 High 4.0-10.0 The [facility] Comment on above: Order Comment: No: D o not add to previous draw Performed By: #### 5 0103 ####[facility]3000 [facility] [place] [address], [facility] HEMOGLOBINon 12-17-2016 Hemoglobin mass conc (Bld) 12.5 g/dL Low 13.9-16.3 [facility] Comment on above: Order Comment: No: D o not add to previous draw Performed By: #### 5 0103 ####[facility] [facility] [place] [address], [facility] POC GLUCOSE LABon 12-17-2016 Glucose mass conc 179 mg/dL High 70-100 [facility] Comment on above: Performed By: #### 5 0103 ####[facility] Glucose mass conc 183 mg/dL High 70-100 [facility] Comment on above: Performed By: #### 5 0103 ####[facility]3000 [facility].[address] PROTHROMBIN TIMEon 7 INR Coag RelTime (PPP) 1.15 {INR} Normal 0.91-1.16 [facility] Comment on above: Order Comment: No: [...] OF ACTION, CLINICALEFFECTIVENESS, AND OPTIMAL THERAPEUTIC RANGE. [id number];108:231S-246S. Performed By: #### 5 0103 ####[facility] Prothrombin time (PT) Coag time (PPP) 14.8 s Normal 12.3-14.8 [facility] Comment on above: Order Comment: No: D o not add to previous draw Result Comment: ALL RESULTS MUST BE INTERPRETED WITH RESPECT TO BLOOD DRAWING ARTIFACTOR DILUTION ERROR OF ANTICOAGULANT AT THE TIME OF SAMPLING. Performed By: #### 5 0103 ####[address] POC GLUCOSE LABon 12-16-2016 Glucose mass conc 391 mg/dL High 70-100 [facility] Comment on above: Performed By: #### 5 0103 ####[place] [address], [facility] Glucose mass conc 160 mg/dL High 70-100 [facility] Comment on above: Performed By: #### 5 0103 ####[place] [address], [facility] Glucose mass conc 141 mg/dL High 70-100 [facility] Comment on above: Performed By: #### 8 5499 ####[address] PORTABLE HIP RIGHT 1 OR 2 VW S WITH PELVISon 12-16-2016 PORTABLE HIP RIGHT 1 OR 2 VWS WITH PELVIS [facility] [address]gtqcc[address] [place] [address] ==Patient Name: KWABENA MESSER : 1950Sex: MAge: Race: WhiteMRN: [id number]. Location: OUTPPatient Status: OVisit #: [id number] Date: 12/16/2016 11:40:00 AMCompleted Date: 12/16/2016 12:02 PMRequesting Provider: ARASH LOOMIS Attending Provider: ONEIL WILLIAMSON Report Copy To: Signs & Symptoms: Pain ( specify Location)History: Patient history not availableComments: Hardware EvaluationExam: PORTABLE HIP RIGHT 1 OR 2 VWS WITH PELVISAccession #: [id number] =========PORTABLE HIP RIGHT 1 OR 2 VWS WITH [...] right total hip arthroplasty. Electronically signed by:Connor Xiong. Transcribed by: [email or web address], User Resident: Electronically Signed by: CONNOR XIONG @ 12/16/2016 01:09 PM Normal [facility] Comment on above: Order Comment: Hardw are Evaluation RBC'S 2 UNITSon 12-16-2016 CROSSMATCH INTERP 1 COMP Normal [facility] Comment on above: Performed By: #### 5 0103 ####[facility] [place] [address], [facility] CROSSMATCH INTERP 2 COMP Normal [facility] Comment on above: Performed By: #### 5 0103 ####[facility] [place] [address], [facility] PRODUCT CODE 1 E0336 Normal The [facility] Comment on above: Performed By: #### 5 0103 ####[facility] [place] [address], [facility] PRODUCT CODE 2 E0336 Normal The [facility] Comment on above: Performed By: #### 5 0103 ####[facility] [place] [address], [facility] PRODUCT STATUS 1 RE Normal The [facility] Comment on above: Result Comment: Resu lt changed by IF on 12/19/2016 07:07. The previous value was XM. Performed By: #### 5 0103 ####[facility] [place] [address], [facility] PRODUCT STATUS 2 RE Normal The [facility] Comment on above: Result Comment: Resu lt changed by IF on 12/19/2016 07:07. The previous value was XM. Performed By: #### 5 0103 ####[facility] [place] [address], [facility] UNIT ABO 1 A Normal [facility] Comment on above: Performed By: #### 5 0103 ####[facility] [place] [address], [facility] UNIT ABO 2 A Normal [facility] Comment on above: Performed By: #### 5 0103 ####[facility] [place] [address], [facility] UNIT ID 1 [id number] Normal The [facility] Comment on above: Performed By: #### 5 0103 ####[facility] [place] [address], [facility] UNIT ID 2 [id number] Normal The [facility] Comment on above: Performed By: #### 5 0103 ####[facility] [place] [address], [place] UNIT RH 1 Positive Normal [facility] Comment on above: Performed By: #### 5 3 ####[facility] UNIT RH 2 Positive Normal [facility] Comment on above: Performed By: #### 5 0103 ####[facility]3000 [facility].[address] APTTon 12-02-2016 aPTT 26.0 s Normal 25.0-35.0 [facility] Comment on above: Result Comment: ALL [...] THIS PURPOSE. Performed By: #### 5 6101, [address]1018 ####[facility] BASIC METABOLIC PANELon 11-21 Calcium 9.7 mg/dL Normal 8.6-10.3 [facility] Comment on above: Performed By: #### 0 0071 ####[place] [address] [facility].[address] Chloride 101 mmol/L Normal 98-107 [facility] Comment on above: Performed By: #### 0 0071 ####[place] [address] [facility].[address] CO2 23 mmol/L Normal 21-31 [facility] Comment on above: Performed By: #### 0 0071 ####[facility] [facility].[address] Creatinine 0.75 mg/dL Normal 0.70-1.30 [facility] Comment on above: Performed By: #### 0 0071 ####[facility] eGFR (black) mL/min/{1.73_m2} Normal >60 The [facility] Comment on above: Performed By: #### 0 0071 ####[facility] eGFR (non-black) mL/min/{1.73_m2} Normal >60 Th e [facility] Comment on above: Performed By: #### 0 0071 ####[facility] Glucose mass conc 173 mg/dL High 70-100 [facility] Comment on above: Performed By: #### 0 0071 ####[facility]3000 [facility].[address] Potassium molar conc 4.0 mmol/L Normal 3.5-5.1 [facility] Comment on above: Performed By: #### 0 0071 ####[place] [address] [place] [facility].[address] Sodium 137 mmol/L Normal 136-145 [facility] Comment on above: Performed By: #### 0 0071 ####[place] [address] [facility].[address] Urea nitrogen 14 mg/dL Normal 7-25 The [facility] Comment on above: Performed By: #### 0 0071 ####[facility] CBC COMPLETE BLOOD COUNTon Erythrocyte distribution width Auto Ratio (RBC) 14.5 % Normal 11.5-16.9 [facility] Comment on above: Performed By: #### 5 0608 ####[facility]3000 [facility].[address] Erythrocytes (RBC) 5.39 mill/mm3 Normal 4.30-5.90 [facility] Comment on above: Performed By: #### 5 0608 ####[facility]3000 [place] [address], [facility] Hematocrit (HCT) 46.4 % Normal 39.0-55.0 [facility] Comment on above: Performed By: #### 5 0608 ####[facility] [place] [address], [facility] Hemoglobin mass conc (Bld) 15.3 g/dL Normal 13.9-16.3 [facility] Comment on above: Performed By: #### 5 0608 ####[facility] [facility] [place] [address], [facility] MCH 28.4 pg Normal 24.0-32.0 [facility] Comment on above: Performed By: #### 5 0608 ####[facility]3000 [facility].[address] MCHC mass conc (RBC) 33.0 g/dL Normal 32.0-36.0 [facility] Comment on above: Performed By: #### 5 0608 ####[facility]3000 [facility].[address] MCV 86.1 fL Normal 80.0-100.0 [facility] Comment on above: Performed By: #### 5 0608 ####[facility] [facility] [place] [address], [facility] PLAT CNT 414 Thou/mm3 High 100-400 [facility] Comment on above: Performed By: #### 5 0608 ####[facility] [facility] [place] [address], [facility] WBC (Leukocytes) 10.0 Thou/mm3 Normal 4.0-10.0 [facility] Comment on above: Performed By: #### 5 0608 ####[facility] [place] [address], [facility] PROTHROMBIN TIMEon 7 INR Coag RelTime (PPP) 1.08 {INR} Normal 0.91-1.16 [facility] Comment on above: Result Comment: ACCC P RECOMMENDED INR FOR WARFARIN THERAPY CONDITION INRPROPHYLAXIS OF VENOUS THROMBOSIS 2-3(HIGH-RISK SURGERY)TREATMENT OF VENOUS THROMBOSIS 2-3TREATMENT OF PULMONARY EMBOLISM 2-3PREVENTION OF SYSTEMIC EMBOLISM: 2-3 ACUTE MYOCARDIAL INFARCTION TISSUE HEART VALVES VALVULAR HEART DISEASE ATRIAL FIBRILLATION RECURRENT SYSTEMIC EMBOLISMMECHANICAL HEART VALVE 2.5-3.5 FROM: ORAL ANTICOAGULANTS. MECHANISM OF ACTION, CLINICALEFFECTIVENESS, AND OPTIMAL THERAPEUTIC RANGE. [id number];108:231S-246S. Performed By: #### 5 6101, [address]996 ####[facility]3000 [facility].[address] Prothrombin time (PT) Coag time (PPP) 14.0 s Normal 12.3-14.8 [facility] Comment on above: Result Comment: ALL RESULTS MUST BE INTERPRETED WITH RESPECT TO BLOOD DRAWING ARTIFACTOR DILUTION ERROR OF ANTICOAGULANT AT THE TIME OF SAMPLING. Performed By: #### 5 6101, 18178 ####[facility] [facility] [place] [address], [facility] TYPE AND CROSSMATCHon 2016 ABO INTERPRETATION A Normal [facility] Comment on above: Performed By: #### 6 2594 ####[facility] [facility] [place] [address], [facility] ANTIBODY SCREEN Negative Normal [facility] Comment on above: Performed By: #### 6 6404 ####[facility]3000 [facility].[address] RH INTERPRETATION Positive Normal [facility] Comment on above: Performed By: #### 6 2594 ####[facility]3000 [facility].[address] *MRSA/MSSA CULTUREon 017 *MRSA/MSSA CULTURE Clinical Report: (D) Specimen: NASAL SWAB Collected: 10/12/2016 12:17 Status: Final Last Updated: 10/13/2016 14:36 CULT RES (Final) No Methicillin Resistant Staphylococcus aureus Isolated ISO (Final) No Methicillin Sensitive Staphylococcus aureus Isolated Normal [facility] Comment on above: Performed By: #### 3 1302 ####[facility]3000 [facility].[address] CBC W/DIFFon 10-12-2016 Basophils Auto #/vol (Bld) 0.6 % Normal 0.0-2.0 [facility] Comment on above: Performed By: #### 5 0103 ####[facility]3000 [facility].[address] Eosinophils/100 leukocytes 5.6 % High 0.0-5.0 [facility] Comment on above: Performed By: #### 5 0103 ####[facility]3000 [facility].[address] Erythrocyte distribution width Auto Ratio (RBC) 14.7 % Normal 11.5-16.9 [facility] Comment on above: Performed By: #### 5 0103 ####[facility]3000 [facility].[address] Erythrocytes (RBC) 5.59 mill/mm3 Normal 4.30-5.90 [facility] Comment on above: Performed By: #### 5 0103 ####[facility]3000 [facility].[address] Hematocrit (HCT) 47.7 % Normal 39.0-55.0 The [facility] Comment on above: Performed By: #### 5 0103 ####[facility] Hemoglobin mass conc (Bld) 15.9 g/dL Normal 13.9-16.3 [facility] Comment on above: Performed By: #### 5 0103 ####[facility]3000 [facility].[address] Lymphocytes/100 leukocytes 18.5 % Low 20.0-40.0 [facility] Comment on above: Performed By: #### 5 0103 ####[facility] MCH 28.4 pg Normal 24.0-32.0 [facility] Comment on above: Performed By: #### 5 0103 ####[facility] MCHC mass conc (RBC) 33.3 g/dL Normal 32.0-36.0 [facility] Comment on above: Performed By: #### 5 0103 ####[facility] MCV 85.4 fL Normal 80.0-100.0 [facility] Comment on above: Performed By: #### 5 0103 ####[facility]3000 [facility].[address] METHOD Normal [facility] Comment on above: Result Comment: Auto mated differential performedNormal RBC Morphology Performed By: #### 5 3 ####[facility]3000 [facility].[address] MONOS 7.8 % Normal 2-8 [facility] Comment on above: Performed By: #### 5 3 ####[facility] [facility] [place] [address], [facility] Neutrophils/100 leukocytes 67.5 % Normal 50-70 [facility] Comment on above: Performed By: #### 5 0103 ####[facility] [facility] [place] [address], [facility] PLAT CNT 399 Thou/mm3 Normal 100-400 [facility] Comment on above: Performed By: #### 5 0103 ####[facility] [facility] [place] [address], [facility] WBC (Leukocytes) 11.0 Thou/mm3 High 4.0-10.0 The [facility] Comment on above: Performed By: #### 5 0103 ####[facility] [facility] [place] [address], [facility] HEMOGLOBIN A1Con 10-12-2016 Glucose mass conc 180 mg/dL High 70-126 [facility] Comment on above: Performed By: #### 4 6447 ####[facility] [facility] [place] [address], [facility] Hemoglobin A1c/Hemoglobin.to shahid mass fraction (Bld) 7.9 % High 4.0-6.0 [facility] Comment on above: Performed By: #### 4 6447 ####[address] [place] [address], [facility] HIP RIGHT 1 OR 2 VWS WITH PE LVISon 10-12-2016 HIP RIGHT 1 OR 2 VWS WITH PELVIS [facility] [address] [place] [id number] ==Patient Name: KWABENA MESSER : 1950Sex: MAge: Race: WhiteMRN: [id number]. Location: 84Patient Status: OVisit #: [id number] Date: 10/12/2016 10:45:00 AMCompleted Date: 10/12/2016 10:48 AMRequesting Provider: ONEIL WILLIAMSON Attending Provider: ONEIL WILLIAMSON Report Copy To: Signs & Symptoms: M16.11 Unilateral primary osteoarthritis, right hip [id number]: AthenaComments: , , , Ordering Provider - ONEIL WILLIAMSON MD , Rendering Provider - ONEIL WILLIAMSON MD , Exam: HIP RIGHT 1 OR 2 VWS WITH PELVISAccession #: [id number] =========HIP RIGHT 1 OR 2 VWS WITH PELVIS [...] change right hip, moderate. Electronically signed by:Geovanny Jorgensen. Transcribed by: [email or web address], User Resident: Electronically Signed by: GEOVANNY JORGENSEN @ 10/12/2016 11:55 AM Normal [facility] Comment on above: Order Comment: , , = ========= , Ordering Provider - ONEIL WILLIAMSON MD , Rendering Provider - ONEIL WILLIAMSON MD , Vital Signs Date Time Vital Sign Value Performing Clinician Facility 07-08-2023 07:23-0400 Diastolic blood pressure 54 mm[Hg] Mri (I-Stat/1.5t) Work Phone: [facility] 07-08-2023 07:23-0400 Heart rate 111 /min Mri (I-Stat/1.5t) Work Phone: [facility] 07-08-2023 07:23-0400 Systolic blood pressure 155 mm[Hg] Mri (I-Stat/1.5t) Work Phone: [facility] 01-17-2019 11:40-0500 Body Temperature 97.11 [degF] [address] 01-17-2019 11:40-0500 BP Diastolic 97 mm[Hg] [address] 01-17-2019 11:40-0500 BP Systolic 162 mm[Hg] [address] 01-17-2019 11:40-0500 Pulse (Heart Rate) 96 /min [address] 01-17-2019 11:40-0500 Respiratory Rate 20 /min [address] 01-15-2019 11:10-0500 BP Diastolic 81 mm[Hg] [address] 01-15-2019 11:10-0500 BP Systolic 164 mm[Hg] [address] 01-15-2019 10:45-0500 Body Temperature 98.1 [degF] [address] 01-15-2019 10:45-0500 Pulse (Heart Rate) 97 /min [address] 01-15-2019 10:45-0500 Respiratory Rate 20 /min [address] 01-14-2019 10:10-0500 Body Temperature 97.81 [degF] [address] 01-14-2019 10:10-0500 BP Diastolic 60 mm[Hg] [address] , [place] 01-14-2019 10:10-0500 BP Systolic 165 mm[Hg] [address] , [place] 01-14-2019 10:10-0500 Pulse (Heart Rate) 92 /min [address], [place] 01-14-2019 10:10-0500 Pulse Oximetry 96 % [address] , [place] 01-14-2019 10:10-0500 Respiratory Rate 16 /min [address], [place] 01-13-2019 10:50-0500 BP Diastolic 77 mm[Hg] [address] , [place] 01-13-2019 10:50-0500 BP Systolic 154 mm[Hg] [address] , [place] 01-13-2019 10:50-0500 Pulse (Heart Rate) 83 /min [address], [place] 01-13-2019 10:18-0500 Body Temperature 98.4 [degF] [address], [place] 01-13-2019 10:18-0500 Pulse Oximetry 99 % [address] , [place] 01-13-2019 10:18-0500 Respiratory Rate 20 /min [address], [place] 01-12-2019 17:45-0500 BP Diastolic 59 mm[Hg] [facility] [place] 01-12-2019 17:45-0500 BP Systolic 137 mm[Hg] [facility] [place] 01-12-2019 17:45-0500 Pulse (Heart Rate) 75 /min [facility] [place] 01-12-2019 17:45-0500 Pulse Oximetry 95 % [facility] [place] 01-12-2019 17:45-0500 Respiratory Rate 18 /min [facility] [place] 01-12-2019 17:18-0500 Body Temperature 97.59 [degF] [facility] [place] 01-12-2019 14:45-0500 BMI (Body Mass Index) 58.18 kg/m2 Jessica Ruff [facility], [place] 01-12-2019 14:45-0500 Body weight 178.72 kg Jessica Cooper [facility] , [place] 01-12-2019 14:45-0500 Height 175.3 cm Jessica Cooper [facility] , [place] Encounters Encounter Date Encounter Type Care Provider Facility Start: 09-30-2023 End: 09-30-2023 ambulatory [facility] Start: 08-11-2023 End: 08-11-2023 Encounter for other preprocedural examination [facility] Start: 08-11-2023 End: 08-11-2023 ambulatory [facility] Start: 07-30-2023 End: 07-30-2023 Emergency department patient visit [facility] Start: 07-29-2023 End: 07-29-[address] [facility] Start: 07-26-2023 Encounter for other preprocedural examination [facility] Start: 07-08-2023 End: 07-08-2023 ambulatory [facility] Facility:[facility] Start: 07-08-2023 End: 07-08-2023 Subsequent hospital visit by physician Mri Main J 2 (I-Stat/1.5t) Work Phone: [facility] Start: 06-28-2023 End: 06-28-[address] [facility] Start: 06-08-2023 End: 06-08-2023 ambulatory [facility] Start: 2023 Telephone encounter Mari Henry) Mi tra Cardiology Comment on above: Appointment Start: 04-29-2023 End: 04-29-2023 ambulatory [facility] Start: 04-15-2023 End: 04-15-2023 ambulatory [facility] Start: 03-31-2023 End: 04-02-2023 ambulatory [facility] Start: 03-31-2023 End: 04-02-2023 Subsequent hospital visit by physician Marisol Carr MD Work Phone: [facility] Comment on above: Hyperlipidemia, unsp ecified hyperlipidemia type; Type 2 diabetes mellitus with hyperglycemia, with long-term current use of insulin (HCC); Essential hypertension Abnormal x-ray; Lung density on x-ray Start: 02-09-2023 End: 02-09-2023 ambulatory [facility] Start: 02-09-2023 End: 02-09-2023 ambulatory [facility] Start: 01-26-2023 End: 01-26-2023 ambulatory MARISOL HALEYOB [facility] Start: 01-24-2023 End: 01-24-2023 ambulatory [facility]ISOL HALEYOB [facility] Start: 01-20-2023 End: 01-20-2023 ambulatory [facility] HALEYOB [facility] Start: 01-17-2023 End: 01-17-2023 ambulatory [facility] HALEYOB [facility] Start: 01-12-2023 End: 01-12-2023 ambulatory [facility]ALEYOB [facility] Start: 01-10-2023 End: 01-10-2023 ambulatory [facility] HALEYOB [facility] Start: 01-07-2023 End: 01-07-2023 ambulatory [facility] HALEYOB [facility] Start: 01-04-2023 End: 01-04-2023 ambulatory MARISOL HALEYOB [facility] Start: 12-22-2022 End: 12-24-2022 ambulatory [facility]ISOL HALEYOB [facility] Start: 10-27-2022 End: 10-27-2022 ambulatory MARISOL IACOB [facility] Start: 09-16-2022 End: 09-16-2022 ambulatory MARISOL IACOB [facility] Start: 04-29-2022 End: 04-29-2022 Subsequent hospital visit by physician Phil Crenshaw MD Work Phone: [facility] Comment on above: Essential hypertensi on Start: 07-21-2021 End: 07-21-2021 Subsequent hospital visit by physician Phil Crenshaw MD Work Phone: [facility] Comment on above: Left lower quadrant abdominal pain Start: 06-01-2021 End: 06-01-2021 Patient encounter procedure Phil Crenshaw MD Work Phone: [facility] Start: 06-01-2021 End: 06-01-2021 Subsequent hospital visit by physician Phil Crenshaw MD Work Phone: [facility] Comment on above: Encounter for prosta te cancer screening; Encounter for Medicare annual wellness exam; Type 2 diabetes mellitus without complication, without long-term current use of insulin (HCC) Start: 01-08-2020 End: 01-08-2020 Subsequent hospital visit by physician Phil Crenshaw [facility] Laboratory Comment on above: Encounter for prosta te cancer screening; Encounter for Medicare annual wellness exam; Type 2 diabetes mellitus without complication, without long-term current use of insulin (HCC) Start: 01-17-2019 End: 01-17-2019 Subsequent hospital visit by physician [facility] Op Treatment 03 [facility] ([facility]) Start: 01-15-2019 End: 01-15-2019 Subsequent hospital visit by physician [facility] Op Treatment 03 [facility] ([facility]B) Start: 01-14-2019 End: 01-14-2019 Subsequent hospital visit by physician [facility] Op Treatment 01 [facility] ([facility]B) Comment on above: Arrived Start: 01-13-2019 End: 01-13-2019 Subsequent hospital visit by physician [facility] Op Treatment 01 [facility] ([facility]B) Comment on above: Arrived Start: 01-12-2019 End: 01-12-2019 Patient encounter procedure JESSICA COOPER [facility] Start: 01-12-2019 End: 01-12-2019 Subsequent hospital visit by physician Jessica Cooper Work Phone: [facility] OR Comment on above: Gluteal abscess (Sue herber Dx) Start: 09-22-2017 End: 09-22-2017 Evaluation and management of inpatient PHIL CRENSHAW [facility] Start: 02-03-2017 End: 02-04-2017 Ambulatory ONEIL WILLIAMSON Facility:[facility] Start: 01-04-2017 End: 01-05-2017 Ambulatory ONEIL WILLIAMSON Facility:[facility] Start: 12-28-2016 End: 12-29-2016 Ambulatory ONEIL WILLIAMSON Facility:[facility] Start: 12-16-2016 End: 12-17-2016 Evaluation and management of inpatient ONEIL WILLIAMSON Facility:[facility] Start: 10-12-2016 End: 10-13-2016 Ambulatory ONEIL WILLIAMSON Facility:[facility] Procedures Date Procedure Procedure Detail Performing Clinician Start: 07-08-2023 Cardiac mri w/wo con trast & further seq [facility] Provider Start: 03-31-2023 Ct thorax w/contrast material Marisol Carr MD Work Phone: Start: 03-31-2023 Comprehensive metabo lic panel Marisol Carr MD Work Phone: Start: 03-31-2023 Lipid panel Marisol madden MD Work Phone: Start: 03-31-2023 Lipid 1996 panel - S jabari or Plasma Mri (I-Stat/1.5t) Work Phone: Start: 04-29-2022 Lipid panel Phil Crenshaw MD Work Phone: Start: 04-29-2022 End: 04-29-2022 Comprehensive metabolic panel Phil Crenshaw MD Work Phone: Start: 11-25-2021 Colonoscopy Phil Crenshaw MD Work Phone: Start: 07-21-2021 Basic metabolic pane l calcium total Phil Crenshaw MD Work Phone: Start: 06-01-2021 PSA screening Kristen Crenshaw MD Work Phone: Comment on above: The Roseann ECLIA as say is used. Results obtained with different assay methods cannot be used interchangeably. Start: 06-01-2021 Comprehensive metabo lic panel Phil Crenshaw MD Work Phone: Start: 04-11-2022 Lipid panel Phil Crenshaw MD Work Phone: Start: 01-08-2020 [object Object] Dorykatlyn krysta Crenshaw Comment on above: The Roseann ECLIA as say is used. Results obtained with different assay methods cannot be used interchangeably. Start: 01-08-2020 Urine albumin quantitative Phil Crenshaw Work Phone: Start: 01-08-2020 Blood count complete auto&auto difrntl wbc Phil Crenshaw Work Phone: Start: 01-08-2020 Comprehensive metabo lic panel Phil Crenshaw Work Phone: Start: 01-08-2020 Lipid panel Phil Crenshaw Work Phone: Start: 01-08-2020 PSA screening Kristen Crenshaw Work Phone: Start: 01-12-2019 Gluc bld gluc mntr d ev cleared fda spec home use JESSICA COOPER Start: 01-12-2019 Blood count complete auto&auto difrntl wbc JESSICA COOPER Start: 01-12-2019 AMBULATE PATIENT JESSICA CLIFFORDRajesh Start: 01-12-2019 DIET GENERAL JESSICA DAVALOS Start: 01-12-2019 ENCOURAGE DEEP BREAT ZACHARY AND COUGHING JESSCIA COOPER Start: 01-12-2019 TOBACCO CESSATION EDUCATION JESSICA COOPER Start: 01-12-2019 WOUND CARE JESSICA DAVALOS Start: 01-12-2019 FULL CODE JESSICA DAVALOS Start: 01-12-2019 DISCHARGE PATIENT JESSICA JERICHO Start: 01-12-2019 Cul prsmptv pthgnc o rganism scrn w/colony estimj JESSICA COOPER Start: 01-12-2019 INITIATE OXYGEN THER APY PROTOCOL JESSICA COOPER Start: 01-12-2019 MEASURE HEIGHT AND LENGTH JESSICA COOPER Start: 01-12-2019 MEASURE WEIGHT JESSICA VU Start: 01-12-2019 NOTIFY PHYSICIAN (SPECIFY) JESSICA COOPER Start: 01-12-2019 NURSING COMMUNICATION Jose COOPER Start: 01-12-2019 PLACE INTERMITTENT PNEUMATIC COMPRESSION DEVICE JESSICA COOPER Start: 01-12-2019 VERIFY INFORMED CONSENT JESSICA KUMARRajesh Start: 01-12-2019 VITAL SIGNS JESSICA DAVALOS Start: 01-12-2019 VOID PROCESS ARTIST TO OR JESSICA GONZALEZJOSE Start: 01-12-2019 Gluc bld gluc mntr d ev cleared fda spec home use Jessica Khalida Gonzalezivinen Work Phone: Start: 01-12-2019 Blood count complete auto&auto difrntl wbc Jessica P Carlosivinen Work Phone: Start: 01-12-2019 Gluc bld gluc mntr d ev cleared fda spec home use Jessica P Carlosivinen Work Phone: Start: 09-22-2017 DISCHARGE PATIENT JOSH CRENSHAW Start: 09-22-2017 TELEMETRY MONITORING TAPAN CRENSHAW Start: 09-22-2017 Mri brain brain stem w/o contrast material PHIL CRENSHAW Start: 09-22-2017 FULL CODE PHIL CRENSHAW Start: 09-22-2017 NOTIFY PHYSICIAN (SPECIFY) PHIL CRENSHAW Start: 09-22-2017 REASON FOR NO CHEMIC AL VTE PROPHYLAXIS PHIL CRENSHAW Start: 09-22-2017 VITAL SIGNS PHIL CRENSHAW Start: 09-22-2017 BEDREST WITH JANELLEO M PRIVILEGES PHIL CRENSHAW Start: 09-22-2017 PLACE INTERMITTENT PNEUMATIC COMPRESSION DEVICE PHIL CRENSHAW Start: 09-22-2017 Basic metabolic pane l calcium total PHIL CRENSHAW Start: 09-22-2017 Blood count complete auto&auto difrntl wbc PHIL CRENSHAW Start: 09-22-2017 Hemoglobin glycosylated a1c PHIL CRENSHAW Start: 09-22-2017 Lipid panel PHIL CRENSHAW Start: 09-22-2017 Ct angiography head w/contrast/noncontrast PHIL CRENSHAW Start: 09-22-2017 Ct angiography neck w/contrast/noncontrast PHIL CRENSHAW Start: 09-22-2017 IP CONSULT TO HOSPITALIST PHIL CRENSHAW Start: 09-22-2017 DIET LOW FAT PHIL CRENSHAW Start: 09-22-2017 NURSING SWALLOW ASSESSMENT PHIL CRENSHAW Start: 09-22-2017 ORAL CARE PHIL CRENSHAW Start: 09-22-2017 OT EVAL AND TREAT JOSH CRENSHAW Start: 09-22-2017 PT EVAL AND TREAT JOSH CRENSHAW Start: 09-22-2017 PATIENT STATUS (FROM ED OR OR/PROCEDURAL) PHIL CRENSHAW Start: 09-22-2017 IP CONSULT TO STROKE TEAM PHIL CRENSHAW Start: 09-22-2017 IP CONSULT TO NEUROLOGY PHIL CRENSHAW Start: 12-16-2016 REPLACEMENT OF RIGHT HIP JOINT WITH SYNTH SUB, OPEN APPROACH ONEIL WILLIAMSON Start: 08-05-2014 Colonoscopy Phil Crenshaw MD Work Phone: Plan of Treatment Date Care Activity Detail Author Start: 03-31-2028 Lipid panel Lipid Screening [facility] Start: 11-25-2026 Screening for malignant neoplasm of colon [facility] [employer] Start: 03-31-2026 Diabetes Screening Diabetes Screening [facility] Start: 03-09-2026 Hepatitis C screen Hepatitis C [place] Comment on above: Postponed from 1950 (Unavailable) Start: 03-09-2026 Hepatitis C screening Hepatitis C screen [employer] Comment on above: Postponed from 1950 (Unavailable) Postponed from 06/03 (Unavailable) Start: 08-05-2024 Colon cancer screen colonoscopy Colon cancer screen colonoscopy [employer] [place] Start: 08-05-2024 [facility] Start: 03-31-2024 GFR test (Diabetes, CKD 3-4, OR last GFR 15-59) GFR test (Diabetes, CKD 3-4, OR last GFR 15-59) [facility] [employer] Start: 03-31-2024 Lipid panel Lipids [facility] [employer] Start: 03-18-2024 Depression Monitoring Depression Monitoring [facility] [employer] Start: 02-10-2024 Hemoglobin A1c measurement A1C test (Diabetic or Prediabetic) [facility] [employer] Start: 10-28-2023 Urine screening for protein Diabetic Alb to Cr ratio (uACR) test [facility] [employer] Start: 10-23-2023 Influenza vaccination Influenza Vaccine (Season Ended) [facility] Start: 06-09-2023 Covid-19 Vaccine ( season) Covid-19 Vaccine () [facility] Start: 05-04-2023 End: 05-04-2023 Patient encounter procedure [facility] Comment on above: emg rue Start: 04-30-2023 GFR test (Diabetes, CKD 3-4, OR last GFR 15-59) GFR test (Diabetes, CKD 3-4, OR last GFR 15-59) [facility] Start: 04-28-2023 End: 04-28-2023 Patient encounter procedure 04/28/2023 10:45 AM EST Office Visit [facility] [address] [place] [address] [address] [place] [address] Marisol Carr MD [address] [place] [address] 3 MO [facility] Comment on above: 3 [place] Start: 03-25-2023 Depression Monitoring Depression Monitoring [facility] Start: 03-25-2023 Hemoglobin A1c measurement A1C test (Diabetic or Prediabetic) [facility] Start: 02-21-2023 Advance Directive Discussion Advance Directive Discussion [facility] Start: 02-21-2023 Behavioral Health Screening Behavioral Health Screening [facility] Start: 01-17-2023 Annual Wellness Visit (Medicare) Annual Wellness Visit (Medicare) [facility] Start: 10-22-2022 Covid-19 Vaccine () Covid-19 Vaccine () [facility] Start: 07-15-2022 End: 07-15-2022 Patient encounter procedure 07/15/2022 Office Visit Primary Care Marisol Carr MD [address] [place] [address] [facility] Start: 06-01-2022 Creatinine measurement Creatinine monitoring [facility] Start: 06-01-2022 Lipid panel Lipids [facility] Start: 06-01-2022 [address]assium monitoring Potassium monitoring [facility] Start: 06-01-2022 Prostate specific antigen measurement Prostate Specific Antigen (PSA) Screening or Monitoring [facility] Start: 05-26-2022 Annual Wellness Visit (AWV) Annual Wellness Visit (AWV) [facility] Start: 05-25-2022 Depression Monitoring Depression Monitoring [facility] Start: 10-06-2021 End: 10-06-2021 Patient encounter procedure 10/06/2021 Office Visit Gastroenterology Melanie Galindo [address] [facility] [place] [address] [facility] Start: 08-27-2021 End: 08-27-2021 Patient encounter procedure 08/27/2021 Office Visit Primary Care Phil Crenshaw MD [address] [facility] [address] [place] [address] [facility] Start: 08-24-2021 Hemoglobin A1c measurement A1C test (Diabetic or Prediabetic) [facility] Start: 08-15-2021 Diabetic foot examination Diabetic foot exam [facility] Start: 02-11-2021 COVID-19 Vaccine (4 - Booster for Moderna series) COVID-19 Vaccine (4 - Booster for Moderna series) [facility] Start: 01-07-2021 HbA1c (Bld) [Mass fraction] A1C test (Diabetic or Prediabetic) [place], [place] Start: 01-07-2021 [address] Lipid screen [facility] Start: 01-07-2021 U[address] screening for protein [facility] Start: 04-08-2020 End: 04-08-2020 Office Visit 04/08/2020 Office Visit Family Medicine Phil Crenshaw MD [address] [facility] [address] [place] [address] Phil Crenshaw MD Start: 04-14-2019 A1C test (Diabetic or Prediabetic) A1C test (Diabetic or Prediabetic) [facility] [place] Start: 03-31-2019 [object Object] Diabetic foot exam [facility] Start: 03-31-2019 Diabetic foot examination Diabetic foot exam [facility] [place] Start: 03-31-2019 Diabetic microalbuminuria test Diabetic microalbuminuria test [place], [place] Start: 01-30-2019 End: 01-30-2019 Office Visit 01/30/2019 Office Visit General Surgery Jessica Cooper MD [address] [facility] [address] [place], [place] [id number] [facility] Start: 01-22-2019 End: 01-22-2019 Appointment 01/22/2019 Appointment Infusion Therapy [facility] ([facility] Start: 01-21-2019 End: 01-21-2019 [...] Visit General Surgery Jessica Cooper MD [address] [facility] [address] [place] [address] [phone] [facility] Start: 01-14-2019 End: 01-14-2019 Appointment 01/14/2019 Appointment Infusion Therapy [facility] ([facility] Start: 11-23-2018 Pneumococcal 65+ years Vaccine (2 of 2 - PPSV23) Pneumococcal 65+ years Vaccine (2 of 2 - PPSV23) [place], [place] Start: 10-22-2018 Influenza vaccination Flu vaccine (#1) [place] Start: 09-22-2018 Creatinine measurement Creatinine monitoring [place] Start: 09-22-2018 Creatinine monitoring Creatinine monitoring [place], [place] Start: 09-22-2018 Lipid panel Lipid [place] Start: 09-22-2018 Lipid screen Lipid [place] Start: 09-22-2018 Potassium monitoring Potassium monitoring [place] Start: 07-19-2018 Annual Wellness Visit (AWV) Annual Wellness Visit (AWV) [place] Start: 2017 Pneumococcal Vaccine: 65+ (1 of 1 - PCV) Pneumococcal Vaccine: 65+ (1 of 1 - PCV) [facility] Start: 02-05-2016 Diabetic retinal exam Diabetic retinal exam [facility] Start: 02-05-2016 Glaucoma screening Diabetic retinal exam [facility] Start: 2012 Respiratory Syncytial Virus (RSV) or age 60 yrs+ (1 - 1-dose 60+ series) Respiratory Syncytial Virus (RSV) or age 60 yrs+ (1 - 1-dose 60+ series) [facility] Start: 2012 RSV Vaccine (1 - 1-dose 60+ series) RSV Vaccine (1 - 1-dose 60+ series) [facility] Start: 2002 Shingles Vaccine (1 of 2) Shingles Vaccine (1 of 2) [facility] Start: 2002 Shingrix Vaccine (1 of 2) Shingrix Vaccine (1 of 2) [facility] Start: 1997 Diabetes Screening Diabetes Screening [facility] Start: 1997 Screening for malignant neoplasm of colon [facility] Start: 06-04-1987 Lipid panel Lipid Screening [facility] Start: 06-04-1971 DTaP/Tdap/Td vaccine (1 - Tdap) DTaP/Tdap/Td vaccine (1 - Tdap) [facility] Start: 06-04-1971 Urine microalbumin profile DTaP,Tdap,Td Vaccine (1 - Tdap) [facility] Start: 1970 Hepatitis C screening Hepatitis C Screening [facility] Start: 06-04-1963 DTaP/Tdap/Td vaccine (1 - Tdap) DTaP/Tdap/Td vaccine (1 - Tdap) [place], [place] [employer]erobic and Aer[employer] Culture [place] Comment on above: ONE TIME for 1 Occurrences starting 12/23 End: 01-12-2019 Blood glucose - POCT Blood glucose - POCT Point of Care Testing Routine One Time for 1 Occurrences starting 01/12/2019 until 01/12/2019 [place] Comment on above: One Time for 1 Occurrences starting 12/23 until 01/12/2019 Initiate Oxygen Ther apy Protocol Initiate Oxygen Therapy Protocol Respiratory Care Routine Daily until discontinued starting 01/12/2019 [facility], [place] Comment on above: Daily until discontinued starting 2018 Leija Mart[facility]cneal Immunizations Immunization Date Immunization Notes Care Provider Lis canada 11-27-2021 Influenza, FLUAD, (a ge 65 y+), Adjuvanted, 0.5mL Phil Crenshaw MD Work Phone: [facility] Work Phone: 11-20-2020 Influenza, Quadv, adjuvanted, 65 yrs +, IM, PF (Fluad) Phil Crenshaw MD Work Phone: [facility] 05-14-2020 COVID-19, Moderna, Primary or Immunocompromised, PF, 100mcg/0.5mL Phil Crenshaw MD Work Phone: [facility] Work Phone: 04-16-2020 COVID-19, Moderna, Primary or Immunocompromised, PF, 100mcg/0.5mL Phil Crenshaw MD Work Phone: [facility] 01-08-2020 pneumococcal polysaccharide vaccine, 23 valent [facility], [place] 11-19-2019 Influenza, Quadv, adjuvanted, 65 yrs +, IM, PF (Fluad) [facility] 02-22-2019 influenza virus vacc ine, unspecified formulation [facility] , [place] 02-22-2019 influenza, injectabl e, quadrivalent, contains preservative [facility], [place] 11-23-2017 pneumococcal conjuga te vaccine, 13 valent [facility], [place] 11-23-2017 Seasonal trivalent influenza vaccine, adjuvanted, preservative free [facility], [place] 12-17-2016 influenza virus vacc ine, unspecified formulation [facility] 12-08-2015 Influenza Vaccine, unspecified formulation [facility] , [place] 12-09-2014 influenza virus vacc ine, unspecified formulation [facility] , [place] 10-18-2013 influenza virus vacc ine, unspecified formulation [facility] 12-11-2012 influenza virus vacc ine, unspecified formulation [facility] , [place] 03-13-2012 pneumococcal polysaccharide vaccine, 23 valent [facility], [place] 03-03-2010 influenza virus vacc ine, whole virus [facility] Payers Date Payer Category Payer Medicare [id number] 2022 Unknown [employer] [place] [place] [employer] [place] [place] MEDIC[place] SUPPLEMENT [id number] 2022-Present [phone] [id number] [employer] [place] [id number] Indemnity [id number] 2022 Unknown [id number] 2017 Medicare [id number] 2017 Medicare MEDICARE MEDICAR E PART A AND B xxxxxxxxxxx 2017-Present [phone] [place] [address] xxxxxxxxxxx [id number] 2017 Medicare MEDICARE MEDICAR E A AND B [id number] 2017-Present [phone] [place] [address] Medicare [id number] 2017 Unknown [employer] [place] [employer] [place] [place] MED[place] SUPP [id number] 2017-Present [phone] ATTN INDIVIDUAL CLAIMS [id number] [employer], [place] [id number] xxxxxx-xx [id number] 2017 Unknown [id number] 2014 Medicare [id number] 1950 Unknown [id number] 1952 Unknown [id number] 6 1952 Unknown [id number] [id number] 6 1952 Unknown [id number] [id number] 1952 Unknown [id number] [id number] 1952 Unknown [id number] 2.16.840.1.958772.3.579.2.173 1952 Unknown [id number] 2.16.840.1.230240.3.579.2.173 1952 Unknown [id number] 2.16.840.1.444442.3.579.2.173 1952 Unknown [id number] 2.16.840.1.119112.3.579.2.173 1952 Unknown [id number] 2.16.840.1.900750.3.579.2.173 1952 Unknown [id number] 2.16.840.1.187824.3.579.2.173 1952 Unknown [id number] 2.16.840.1.841019.3.579.2.173 1952 Unknown [id number] 2.16.840.1.546046.3.579.2.173 1952 Unknown [id number] 2.16.840.1.438084.3.579.2.173 1952 Unknown [id number] 2.16.840.1.276927.3.579.2.173 1952 Unknown [id number] 2.16.840.1.142218.3.579.2.173 1952 Unknown [id number] 2.16.840.1.006603.3.579.2.173 1952 Unknown [id number] 2.16.840.1.600894.3.579.2.173 1952 Unknown [id number] [id number] 1952 Unknown [id number] [id number] Unknown [id number] Social History Date Type Detail Facility Start: 01-12-2019 End: 10-06-2021 Tobacco smoking status NHIS Former smoker [facility] Start: 02-21-1959 End: 02-21-1979 History of tobacco use Current smoker [place] Start: 02-21-1959 End: 02-21-1979 History of tobacco use Cigarette [place] Start: 01-12-2019 End: 03-25-2022 Cigarettes smoked current (pack per day) - Reported [place] Start: 01-12-2019 End: 03-18-2023 Alcohol intake Current non-drinker of alcohol (finding) [place] Start: 03-25-2011 Alcohol Comment rare [place], [place] Start: 1950 Sex Assigned At Not on file [place] Start: 01-08-2020 End: 10-06-2021 Tobacco use and exposure Never used [facility] [employer] [place] Start: 05-25-2021 End: 03-25-2022 History SDOH Alcohol Frequency 1 [employer] Work Phone: Start: 05-25-2021 History SDOH Physical Activity DPW 0 [employer] Phone: Start: 08-15-2020 End: 03-25-2022 History SDOH Financial 5 [employer] Work Phone: Start: 08-15-2020 End: 03-25-2022 History SDOH Transport Med 2 [employer] Work Phone: Start: 05-25-2021 End: 03-25-2022 Alcohol Use Disorder Identification Test - Consumption [AUDIT-C] [employer] How often to you hav e a drink containing alcohol? Never [employer] Average Number of Drinks Not on file [employer] (I/We) worried wheth er (my/our) food would run out before (I/we) got money to buy more. Never true [employer] At any time in the p ast 12 months, were you homeless or living in [place] [including now]? No [employer] [facility] unknown [facility] Medical Equipment Procedure Code Equipment Code Equipment Origin al Text Equipment Identifier Dates 1 strip by Other route 2 times daily [id number] Start: 04-03-2018 1 each by In Vit ro route 2 times daily. As needed. [id number] each by Does n ot apply route 2 times daily [id number] Start: 04-03-2018 1 strip by Other route 2 times daily [id number] Start: 06-13-2020 1 strip by Other route 2 times daily [id number] Start: 07-02-2021 Use needle to in ject Levemir in to the skin every night. [id number] Start: 06-25-2021 1 strip by Other route 2 times daily [id number] Start: 08-26-2022 Use needle to in ject [employer] in to the skin every night. [id number] Start: 11-12-2022 1 each by Does n ot apply route daily [id number] Start: 01-20-2023 Goals Date Patient Goal Desired Activity /State Comment on above: I will try to decrea se the high sugar foods in my diet. Barriers: lack of motivation Plan for overcoming my barriers: Patient will participate in care coordination. Patient will review diet with flame gouger. Confidence: 07/31 Anticipated Goal Completion Date: 02/21/2020 Comment on above: Formatting of this n ote might be different from the original. I will take my medication as directed. I will notify my provider of any problems with medications, like adverse effects or side effects. I will notify my provider/Prosthodontist if I am unable to afford my medications. I will notify my provider for advice before I stop taking any of my medication. Barriers: financial Plan for overcoming my barriers: Patient will apply for patient assistance as needed. Confidence: 09/30 Anticipated Goal Completion Date: 08/20/2020 Clinical Notes 04-15-2023 to 09-30-2023 Priya Baron, RN - 07/08/2023 7:00 AM EDTCabotBrijesh L, RT(R) - 07/08/2023 7:00 AM EDTCabotBrijesh L, RT(R) - 07/08/2023 7:00 AM EDTCabBrijesh perdue, RT(R) - 07/08/2023 7:00 AM EDT Note Date & Type Note Facility 09-30-2023 Note Cardiology Clinic No te HPI: Kwabena Messer is a 73 y.o. male with a past medical history including HTN, HLD, and Morbid obesity. He presents to Cardiology clinic for follow up. Patient here for follow up CTA heart, MRI heart, SHANKAR, and heart cath. He denies chest pain, palpitations, and lightheadedness/syncope. Still has not had carpal tunnel surgery yet due to elevated A1c. Patient adamantly denies any cardiac complaints or concerns. Patient denies any chest pain or shortness of breath. Patient denies any lower extremity edema, orthopnea, or proximal nocturnal dyspnea. No near-syncope or syncope. No dizziness or lightheadedness. He had TTE performed which was concerning for atrial mass. SHANKAR revealed no atrial mass. Stress was abnormal, so cath was performed. Non obstructive CAD on cath. Cardiology ROS: 10 point ROS is performed and is negative unless otherwise specified in HPI. Past Medical History He has a past medical history of Abnormal ECG, Diabetes mellitus ([facility]), Hyperlipidemia, Hypertension, and Sleep apnea. Surgical History He has a past surgical history that includes Replacement total hip lateral position. Social History He reports that he has quit smoking. His smoking use included cigarettes. He has never used smokeless tobacco. He reports that he does not currently use alcohol. No history on file for drug use. Family History Family History Problem Relation Name Age of Onset Other (defibrillator in situ) Father Medications Current Outpatient Medications on File Prior to Visit Medication Sig Dispense Refill amLODIPine (Norvasc) 5 mg tablet Take 5 mg by mouth in the morning. aspirin 81 mg EC tablet Take 1 tablet (81 mg) by mouth in the morning. 30 tablet 3 atorvastatin (Lipitor) 20 mg tablet Take 2 tablets (40 mg) by mouth in the morning. 60 tablet 0 celecoxib (CeleBREX) 100 mg capsule TAKE 1 CAPSULE BY MOUTH 2 TIMES A DAY NEEDED FOR PAIN dulaglutide (Trulicity) 3 mg/0.5 mL pen injector Inject 3 mg under the skin. DULoxetine (Cymbalta) [address] capsule gabapentin (Neurontin) 600 mg tablet Take 600 mg by mouth 3 times a day. glipiZIDE XL (Glucotrol XL) 10 mg 24 hr tablet Take 1 tablet by mouth in the morning and at bedtime. HYDROcodone-acetaminophen ([place]) 5-325 mg tablet Take 1 tablet by mouth every 6 (six) hours if needed for severe pain (8-10 pain score). losartan-hydrochlorothiazide (Hyzaar) 100-12.5 mg tablet Take 1 tablet by mouth in the morning. metFORMIN (Glucophage) 1,000 mg tablet mirtazapine (Remeron) 30 mg tablet pioglitazone (Actos) 15 mg tablet Take 1 tablet by mouth in the morning. spironolactone (Aldactone) 25 mg tablet Take 1 tablet by mouth in the morning. Tresiba FlexTouch U-100 100 unit/mL (3 mL) injection Inject 110 Units under the skin. venlafaxine (Effexor) 75 mg tablet Take 1 tablet by mouth in the morning and at bedtime. insulin detemir (Levemir) 100 unit/mL (3 mL) injection pen Inject 110 Units under the skin at bedtime. No current facility-administered medications on file prior to visit. Allergies Patient has no known allergies. Physical Exam VITAL SIGNS: Ht 1.778 m (5' 10 ) BMI 58.25 kg/m??? Constitutional: Well developed, Well nourished, No acute distress, Non-toxic appearance. HENT: Normocephalic, Atraumatic, Bilateral external ears have normal appearance, Nose appears normal, nares are patent. Eyes: PERRLA, EOMI, Conjunctiva normal, No discharge. Neck: Normal range of motion, No tenderness, Supple, No stridor. No cervical lymphadenopathy noted. Cardiovascular: Normal heart rate, Normal rhythm, No murmurs, No rubs, No gallops. Thorax & Lungs: Normal breath sounds, No respiratory distress, No wheezing, No chest tenderness to palpation. Abdomen: Bowel sounds normal, Soft, Nontender, No masses, No pulsatile masses. Skin: Warm, Dry, No erythema, No rash. Back: No tenderness, No CVA tenderness. Extremities: Intact distal pulses, No edema, No tenderness, No cyanosis, No clubbing. Musculoskeletal: Grossly normal strength in extremities Neurologic: Alert & oriented x 3, no gross focal neurological deficits Psychiatric: Affect normal, Judgment normal, Mood normal. EKG results: Encounter Date: 08/11/23 ECG 12 lead Result Value Ventricular Rate 72 Atrial Rate 72 CA Interval 172 QRS DURATION 108 QT Interval 406 QTC CALCULATION(BAZETT) 444 P [place] 42 R-[place] -38 T Wave [place] 59 Impression Sinus rhythm with occasional Premature ventricular complexes Left axis deviation Abnormal ECG No previous ECGs available Confirmed by Cheyenne ROY, L.S. (2) on 08/11/2023 12:12:06 PM Echo results: Transesophageal echo (SHANKAR) Result Date: 08/11/2023 1 [facility] [address] [place] [address] [phone] (fax) Transesophageal Echocardiogram-[facility] Name: KWABENA MESSER Study Date: 08/11/2023 09:54 AM (more content not included)... [facility] 08-11-2023 Note Patient: Kwabena porter Procedure Information Date/Time: 08/11/23 1030 Procedure: TRANSESOPHAGEAL ECHO (SHANKAR) Location: [facility] Vascular Lab Clinical information reviewed: Physical Exam Airway Mallampati: III Neck ROM: full Cardiovascular Rhythm: irregular Rate: normal Dental Pulmonary - normal exam Abdominal - normal exam (+) obese Abdomen: soft Anesthesia Plan ASA 3 other (Conscious sedation) intravenous induction Anesthetic plan and risks discussed with patient. Use of blood products discussed with patient who consented to blood products. Plan discussed with attending and fellow. Additional Equipment Requests [facility] 08-11-2023 Note Patient going in for cath procedure. [facility] 08-11-2023 Note Patient: Kwabena porter Procedure Information Date/Time: 08/11/23 1030 Procedure: TRANSESOPHAGEAL ECHO (SHANKAR) Location: [facility] Center Vascular Lab Clinical information reviewed: Allergies Meds Physical Exam Airway Mallampati: III Neck ROM: full Cardiovascular Rhythm: regular Dental Pulmonary - normal exam Abdominal - normal exam Abdomen: soft Anesthesia Plan ASA 3 other (Conscious sedation) intravenous induction Anesthetic plan and risks discussed with patient. Use of blood products discussed with patient who consented to blood products. Plan discussed with attending and fellow. Additional Equipment Requests [facility] 07-08-2023 Note HNO ID: [id number] Author: PRIYA BARON RN Service: ? Author Type: Registered Nurse Type: Progress Notes Filed: 07/08/2023 07:25 Note Text: Radiology Service Progress Note DATE OF SERVICE: July 08, 2023 TIME: 7:16 AM PATIENT WEIGHT: 400LBS PATIENT IDENTITY VERIFICATION COMPLETED USING TWO (2) STANDARD IDENTIFIERS: Name and Date of confirmed by patient verbally and Name and Date of confirmed by identification band. FALL SCREENING: Has the patient had 2 falls in the last year or 1 fall with injury or currently using an Ambulatory Assistive Device (Walker, Cane, Wheelchair, Crutches, etc.)? No PATIENT GENDER DATA: Male ALLERGIES: Reviewed and unchanged CONTRAST ALLERGY: No EXAM: MRI - CONTRAST TYPE: GROUP II IV SITE: Ambulatory: A peripheral IV was started in the Right forearm with a Angio cath: 20 gauge. and A Saline lock was inserted per protocol IV SITE APPEARANCE: Clean,Dry and Intact SIGNATURE: Priya Baron RN PATIENT NAME: Kwabena Messer DATE: July 08, 2023 TIME: 7:16 AM [facility] 07-08-2023 Note HNO ID: [id number] Author: BRIJESH MCGEE RT(R) Service: Radiology Author Type: Technologist Type: Progress Notes Filed: 07/08/2023 11:20 Note Text: RADIOLOGY SERVICE PROGRESS NOTE DATE OF SERVICE: July 08, 2023 TIME OF SERVICE: 10:30am EVENT: EXAM/PROCEDURE NOT COMPLETED - Patient refused exam/procedure. and Patient became claustrophobic, reaction was: Severe. ADDITIONAL EVENT DETAILS: Pt was unable to complete exam. SIGNATURE: RT Caryn(Shannan) PATIENT NAME: Kwabena Mseser DATE: July 08, 2023 TIME: 10:22 AM PAGER/CONTACT #: [facility] 07-08-2023 Note HNO ID: [id number] Author: BRIJESH MCGEE RT(Shannan) Service: Radiology Author Type: Technologist Type: Progress Notes Filed: 07/08/2023 10:08 Note Text: Radiology Service Progress Note PATIENT NAME: Kwabena Messer DATE OF SERVICE: July 08, 2023 TIME: 10:08 AM PATIENT IDENTITY VERIFICATION COMPLETED USING TWO (2) IDENTIFIERS: Name and Date of confirmed by patient verbally and Name and Date of confirmed by identification band. FALL SCREENING: Has the patient had 2 falls in the last year or 1 fall with injury or currently using an Ambulatory Assistive Device (Walker, Cane, Wheelchair, Crutches, etc.)? Yes, Patient High Risk for Falls What interventions were put in place to prevent falls during this visit? [place] Risk Wristband Applied, Instructed Patient to Call for Help if Needed, Offered Assistance with Transfers/Clothing, Instructed Patient to Remain Seated (Not on Exam Table) Until Exam, Increased Observations by Caregivers, and Patient Refused Interventions/Assistance PATIENT GENDER DATA: Male PATIENT RELEVANT IMPLANT DATA REVIEWED: Yes PATIENT PRESENTS WITH AN IMPLANTABLE OR ATTACHED TANK WAGON DRIVER: No RADIOLOGY DEPARTMENT: MR; Exam(s) Completed: Cardiac: Cardiac PERIPHERAL IV DATA: Site assessment: Clean,Dry and Intact, Site disposition Discontinued SIGNED BY: RT Caryn(R), Ysabel PEARCE July 08, 2023 10:08 AM [facility] 07-08-2023 Note HNO ID: [id number] Author: BRIJESH MCGEE RT(Shannan) Service: Radiology Author Type: Technologist Type: Progress Notes Filed: 07/08/2023 09:55 Note Text: Radiology Service Progress Note PATIENT NAME: Kwabena Messer DATE OF SERVICE: July 08, 2023 TIME: 9:28 AM PATIENT IDENTITY VERIFICATION COMPLETED USING TWO (2) IDENTIFIERS: Name and Date of confirmed by patient verbally and Name and Date of confirmed by identification band. FALL SCREENING: Has the patient had 2 falls in the last year or 1 fall with injury or currently using an Ambulatory Assistive Device (Walker, Cane, Wheelchair, Crutches, etc.)? Yes, Patient High Risk for Falls What interventions were put in place to prevent falls during this visit? [place] Risk Wristband Applied, Instructed Patient to Call for Help if Needed, Offered Assistance with Transfers/Clothing, Instructed Patient to Remain Seated (Not on Exam Table) Until Exam, and Increased Observations by Caregivers PATIENT GENDER DATA: Male PATIENT RELEVANT IMPLANT DATA REVIEWED: Yes PATIENT PRESENTS WITH AN IMPLANTABLE OR ATTACHED TANK WAGON DRIVER: No RADIOLOGY DEPARTMENT: MR; Exam(s) Completed: Cardiac: Cardiac PERIPHERAL IV DATA: Site assessment: Clean,Dry and Intact, Site disposition Discontinued SIGNED BY: Brijesh Mcgee RT(R), RT Ruth(R) July 08, 2023 9:28 AM [facility] 07-08-2023 History of Presen t illness Narrative Radiology Service Progress Note DATE OF SERVICE: July 08, 2023 TIME: 7:16 AM PATIENT WEIGHT: 400LBS PATIENT IDENTITY VERIFICATION COMPLETED USING TWO (2) STANDARD IDENTIFIERS: Name and Date of confirmed by patient verbally and Name and Date of confirmed by identification band. FALL SCREENING: Has the patient had 2 falls in the last year or 1 fall with injury or currently using an Ambulatory Assistive Device (Walker, Cane, Wheelchair, Crutches, etc.)? No PATIENT GENDER DATA: Male ALLERGIES: Reviewed and unchanged CONTRAST ALLERGY: No EXAM: MRI - CONTRAST TYPE: GROUP II IV SITE: Ambulatory: A peripheral IV was started in the Right forearm with a Angio cath: 20 gauge. and A Saline lock was inserted per protocol IV SITE APPEARANCE: Clean,Dry and Intact SIGNATURE: Priya Baron RN PATIENT NAME: Kwabena Messer DATE: July 08, 2023 TIME: 7:16 AM Radiology Service Progress Note PATIENT NAME: Kwabena Messer DATE OF SERVICE: July 08, 2023 TIME: 9:28 AM PATIENT IDENTITY VERIFICATION COMPLETED USING TWO (2) IDENTIFIERS: Name and Date of confirmed by patient verbally and Name and Date of confirmed by identification band. FALL SCREENING: Has the patient had 2 falls in the last year or 1 fall with injury or currently using an Ambulatory Assistive Device (Walker, Cane, Wheelchair, Crutches, etc.)? Yes, Patient High Risk for Falls What interventions were put in place to prevent falls during this visit? [place] Risk Wristband Applied, Instructed Patient to Call for Help if Needed, Offered Assistance with Transfers/Clothing, Instructed Patient to Remain Seated (Not on Exam Table) Until Exam, and Increased Observations by Caregivers PATIENT GENDER DATA: Male PATIENT RELEVANT IMPLANT DATA REVIEWED: Yes PATIENT PRESENTS WITH AN IMPLANTABLE OR ATTACHED TANK WAGON DRIVER: No RADIOLOGY DEPARTMENT: MR; Exam(s) Completed: Cardiac: Cardiac PERIPHERAL IV DATA: Site assessment: Clean,Dry and Intact, Site disposition Discontinued SIGNED BY: RT Caryn(R), RT Ruth(R) July 08, 2023 9:28 AM Radiology Service Progress Note PATIENT NAME: Kwabena Messer DATE OF SERVICE: July 08, 2023 TIME: 10:08 AM PATIENT IDENTITY VERIFICATION COMPLETED USING TWO (2) IDENTIFIERS: Name and Date of confirmed by patient verbally and Name and Date of confirmed by identification band. FALL SCREENING: Has the patient had 2 falls in the last year or 1 fall with injury or currently using an Ambulatory Assistive Device (Walker, Cane, Wheelchair, Crutches, etc.)? Yes, Patient High Risk for Falls What interventions were put in place to prevent falls during this visit? [place] Risk Wristband Applied, Instructed Patient to Call for Help if Needed, Offered Assistance with Transfers/Clothing, Instructed Patient to Remain Seated (Not on Exam Table) Until Exam, Increased Observations by Caregivers, and Patient Refused Interventions/Assistance PATIENT GENDER DATA: Male PATIENT RELEVANT IMPLANT DATA REVIEWED: Yes PATIENT PRESENTS WITH AN IMPLANTABLE OR ATTACHED TANK WAGON DRIVER: No RADIOLOGY DEPARTMENT: MR; Exam(s) Completed: Cardiac: Cardiac PERIPHERAL IV DATA: Site assessment: Clean,Dry and Intact, Site disposition Discontinued SIGNED BY: RT Caryn(R), Ysabel PEARCE July 08, 2023 10:08 AM RADIOLOGY SERVICE PROGRESS NOTE DATE OF SERVICE: July 08, 2023 TIME OF SERVICE: 10:30am EVENT: EXAM/PROCEDURE NOT COMPLETED - Patient refused exam/procedure. and Patient became claustrophobic, reaction was: Severe. ADDITIONAL EVENT DETAILS: Pt was unable to complete exam. SIGNATURE: RT Caryn(Shannan) PATIENT NAME: Kwabena Messer DATE: July 08, 2023 TIME: 10:22 AM PAGER/CONTACT #: documented in this encounter [facility] 2023 Miscellaneous Notes RP Patient already scheduled for 07/07 for CARDIAC MRI. Case closed. documented in this encounter [facility] 04-15-2023 Note Cardiology Clinic No te Chief Complaint: periop risk stratification HPI: Kwabena Messer is a 72 y.o. male with a past medical history including HTN, HLD, and Morbid obesity. He presents to Cardiology clinic for periop risk stratification prior to carpal tunnel surgery. Patient denies any previous cardiac history. He endorses some dyspnea on exertion, but adamantly denies any additional cardiac complaints or concerns. He denies any chest pain. He has unclear function capacity. He is not able to complete 4 mets on a regular basis. Patient adamantly denies any chest pain, syncope, LE edema, orthopnea, PND, palps, or bleeding. Patient denies any previous history of CVA, PVD, DM, Depressed LVEF, and CAD. Cardiology ROS: GENERAL: Denies fever, chills, night sweats, weight loss. HEENT: Denies changes in vision, photophobia, changes in hearing, epistaxis, oral bleeding. CARDIOVASCULAR: Denies chest pain, exertional dyspnea, orthopnea/PND, lower extremity edema, palpitations, lightheadedness/dizziness. RESPIRATORY: Denies SOB, coughing, wheezing GI: Denies abdominal pain, nausea/vomiting, heartburn, melena/hematochezia. RENAL: Denies dysuria, hematuria, flank pain. MSK: Denies muscle weakness/pain, arthralgias/joint pain. NEUROLOGIC: Denies LOC, weakness, numbness, headaches. SKIN: Denies abnormal rashes or bleeding. PSYCH: Denies significant anxiety, depression, sleep disturbances. Past Medical History He has a past medical history of Abnormal ECG, Diabetes mellitus (CMS/HCC), Hyperlipidemia, Hypertension, and Sleep apnea. Surgical History He has a past surgical history that includes Replacement total hip lateral position. Social History He reports that he has quit smoking. His smoking use included cigarettes. He has never used smokeless tobacco. He reports that he does not currently use alcohol. No history on file for drug use. Family History Family History Problem Relation Name Age of Onset Other (defibrillator in situ) Father Medications Current Outpatient Medications on File Prior to Visit Medication Sig Dispense Refill atorvastatin (Lipitor) 20 mg tablet Take 20 mg by mouth in the morning. dulaglutide (Trulicity) 3 mg/0.5 mL pen injector Inject 3 mg under the skin. DULoxetine (Cymbalta) [address] capsule gabapentin (Neurontin) 600 mg tablet Take 600 mg by mouth 3 times a day. glipiZIDE XL (Glucotrol XL) 10 mg 24 hr tablet Take 1 tablet by mouth in the morning and at bedtime. insulin detemir (Levemir) 100 unit/mL (3 mL) injection pen Inject 70 Units under the skin. losartan-hydrochlorothiazide (Hyzaar) 100-12.5 mg tablet Take 1 tablet by mouth in the morning. meloxicam (Mobic) 15 mg tablet metFORMIN (Glucophage) 1,000 mg tablet mirtazapine (Remeron) 30 mg tablet pioglitazone (Actos) 15 mg tablet Take 1 tablet by mouth in the morning. spironolactone (Aldactone) 25 mg tablet Take 1 tablet by mouth in the morning. venlafaxine (Effexor) 75 mg tablet Take 1 tablet by mouth in the morning and at bedtime. [DISCONTINUED] aspirin 81 mg EC tablet Take 81 mg by mouth in the morning. No current facility-administered medications on file prior to visit. Allergies Patient has no known allergies. Physical Exam VITAL SIGNS: BP 130/72 (BP Location: Left arm, Patient Position: Sitting) Pulse 79 Ht 1.778 m (5' 10 ) Wt (!) 184 kg (406 lb) SpO2 94% BMI 58.25 kg/m??? Constitutional: Well developed, Well nourished, No acute distress, Non-toxic appearance. HENT: Normocephalic, Atraumatic, Bilateral external ears have normal appearance, Nose appears normal, nares are patent. Eyes: PERRLA, EOMI, Conjunctiva normal, No discharge. Neck: Normal range of motion, No tenderness, Supple, No stridor. No cervical lymphadenopathy noted. Cardiovascular: Normal heart rate, Normal rhythm, No murmurs, No rubs, No gallops. Thorax & Lungs: Normal breath sounds, No respiratory distress, No wheezing, No chest tenderness to palpation. Abdomen: Bowel sounds normal, Soft, Nontender, No masses, No pulsatile masses. Skin: Warm, Dry, No erythema, No rash. Back: No tenderness, No CVA tenderness. Extremities: Intact distal pulses, No edema, No tenderness, No cyanosis, No clubbing. Musculoskeletal: Grossly normal strength in extremities Neurologic: Alert & oriented x 3, no gross focal neurological deficits Psychiatric: Affect normal, Judgment normal, Mood normal. EKG results: No results found for this or any previous visit (from the past 4464 hour(s)). Echo results: No echocardiogram results found for the past 12 months Radiology: XR hip right 2 or 3 views Narrative: [facility] Department of Radiology [address] [place] [id number] Patient Name: KWABENA MESSER : 1950 Sex: M Age: Race: White^White MRN: [id number] (more content not included)... [facility] 04-15-2023 Note New patient here to establish care. Ref from Dr. Cox for surgery clearance. He is scheduled for carpal tunnel surgery on 04/24/2023 at [facility]. Had EKG a few weeks ago. Denies personal cardiac hx, but states his father had an ICD. Denies chest pain, palpitations, and lightheadedness/syncope. Gets SOB w/ exertion. Review of Systems Cardiovascular: Positive for dyspnea on exertion. Musculoskeletal: Positive for joint pain. All other systems reviewed and are negative. [facility] Evaluation note Diagnosis Encounter for prostate cancer screening Special screening for malignant neoplasm of prostate Encounter for Medicare annual wellness exam Routine general medical examination at a health care facility Type 2 diabetes mellitus without complication, without long-term current use of insulin (HCC) documented in this encounter [employer] Phone: [email or web address] note* Diagnosis Left lower quadrant abdominal pain documented in this encounter [employer] Phone: [email or web address] note* Diagnosis Essential hypertension Unspecified essential hypertension documented in this encounter [employer] Phone: evaluation note* Diagnosis Hyperlipidemia, unspecified hyperlipidemia type Type 2 diabetes mellitus with hyperglycemia, with long-term current use of insulin (HCC) Essential hypertension Unspecified essential hypertension documented in this encounter [employer]Evaluation note* Diagnosis Abnormal x-ray Other nonspecific (abnormal) findings on radiological and other examinations of body structure Lung density on x-ray Other diseases of lung, not elsewhere classified documented in this encounter [employer] 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 Advance Directives and Living Will Power of Deputy Director Of Nursing Latest Code Status on File Code Status Date Activated Date Inactivated Comments Full Code 01/12/2019 4:48 PM Full Code 01/12/2019 4:11 PM 01/12/2019 4:48 PM Full Code 09/22/2017 6:50 AM 09/22/2017 3:18 PM Full Code 09/22/2017 5:54 AM 09/22/2017 6:50 AM Full Code 09/13/2016 7:35 AM 09/15/2016 6:35 PM Documents on File Type Date Recorded 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 Advance Directives and Living Will Power of Deputy Director Of Nursing Latest Code Status on File Code Status Date Activated Date Inactivated Comments Full Code 01/12/2019 4:48 PM 01/12/2019 8:21 PM Full Code 01/12/2019 4:11 PM 01/12/2019 4:48 PM Full Code 09/22/2017 6:50 AM 09/22/2017 3:18 PM Full Code 09/22/2017 5:54 AM 09/22/2017 6:50 AM Full Code 09/13/2016 7:35 AM 09/15/2016 6:35 PM Documents on File Type Date Recorded 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 ACP-Advance Directive ACP-Power of Deputy Director Of Nursing Healthcare Agents on File Name Relationship Healthcare Agent Relationshi p Communication Stormymarcio Messer Spouse Primary Decision Bryant ker Healthcare Agents on File Name Relationship Healthcare Agent Relationshi p Communication Stormyfabian Messer Spouse Primary Decision Bryant ker Healthcare Agents on File Name Relationship Healthcare Agent Relationshi p Communication Stormyfabian Messer Spouse Primary Decision Bryant ker Latest Code [...] Name Relationship Healthcare Agent Relationshi p Communication Stormyfabian Roquebach Spouse Primary Decision Bryant ker Latest Code [...] Agents on File Name Relationship Healthcare Agent [facility] Communication Stormy Messer Spouse Primary Decision Bryant pascual Discharge Instructions * Instructions* Nuvia Gutierres RN - 01/12/2019 Return to [place] ED daily at 10 am for dressing change: Remove old dressing, bacitracin ointment, nu-gauze, then fluff outer dressing. Leave sutured alejo drain in place. Take bag of dressing supplies with you to the ED when you go. May change outer dressing at home if it becomes saturated before next dressing change. Follow up with Dr. Cooper in [place] on Tuesday. Call Tuesday to make appointment [phone]. documented in this encounter* Discharge Instr - JESSICA* Ava Enriquez RN - 01/13/2019 10:00 AM EST Continuity of Care Form Patient Name: Kwabena Messer : 1950 Admit date: 01/13/2019 Discharge date: Code Status Order: Prior Advance Directives: Admitting Physician: No admitting provider for patient encounter. PCP: Phil Crenshaw MD Discharging Nurse: Discharging Hospital Unit/Room#: No information available for this encounter. Discharging Unit Phone Number: Emergency Contact: Extended Emergency Contact Information Primary Emergency Contact: Stormy Messer Address: [address] [place] [address] Relation: Spouse Past Surgical History: Past Surgical [...] yrs and older) 11/23/2017 Pneumococcal Conjugate 13-valent ([id number]) 11/23/2017 Pneumococcal Polysaccharide ([id number]) 03/13/2012 Active Problems: Patient Active Problem List Diagnosis Code Essential hypertension I10 Type 2 diabetes mellitus without complication, without long-term current use of insulin ([facility]) E11.9 Hyperlipidemia E78.5 Acute pain of right hip M25.551 Primary osteoarthritis of right hip M16.11 Osteoarthritis of knee M17.10 Degenerative arthritis of hip M16.9 Depression, major, in remission (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) E08.65 Morbid obesity with BMI of 50.0-59.9, adult ([facility]) E66.01, Z68.43 Gluteal abscess L02.31 Isolation/Infection: [...] MENTAL STATUS:} IV Access: { JESSICA IV ACCESS:531759713} Nursing Mobility/ADLs: Walking {CHP DME ADLs:718467007} Transfer {CHP DME ADLs:005488943} Bathing {CHP DME ADLs:644722582} Dressing {CHP DME ADLs:304833923} Toileting {CHP DME ADLs:315351736} Feeding {CHP DME ADLs:943684647} Crowning Inspector {P DME ADLs:907065286} Med Delivery { JESSICA MED Delivery:386043130} Wound Care Documentation and Therapy: Elimination: Continence: Bowel: {YES / NO:} Bladder: {YES / NO:} Urinary Catheter: {Urinary Catheter:638182841} Colostomy/Ileostomy/Ileal Conduit: {YES / NO:} Date of Last BM: No intake or output data in the 24 hours ending 01/13/19 1418 No intake/output data recorded. Safety Concerns: { JESSICA Safety Concerns:465932955} Impairments/Disabilities: {[facility] Impairments/Disabilities:631958493} Nutrition Therapy: Current Nutrition Therapy: {[facility] Diet List:957117830} Routes of Feeding: {[employer] Other Feedings:667080729} Liquids: {[facility] liquid thickness:92816} Daily Fluid Restriction: {[facility] DME Yes amt example:934775362} Last Modified Barium Swallow with Video (Video Swallowing Test): {Done Not Done Date:422153471} Treatments at the Time of Hospital Discharge: Respiratory Treatments: Oxygen Therapy: {Therapy; copd oxygen:98606} Ventilator: {[facility] Vent List:858084755} Rehab Therapies: {THERAPEUTIC INTERVENTION:5089774395} Weight Bearing Status/Restrictions: {[facility] Weight Bearin} Other Medical Equipment (for information only, NOT a DME order): {EQUIPMENT:876102703} Other Treatments: Patient's personal belongings (please select all that are sent with patient): {[facility] DME Belongings:786885577} RN SIGNATURE: {Esignature:470486983} CASE MANAGEMENT/SOCIAL WORK SECTION Inpatient Status Date: Readmission Risk Assessment Score: Readmission Risk Risk of Unplanned Readmission: 0 Discharging to Facility/ Agency Name: Address: Phone: Fax: Dialysis Facility (if applicable) Name: Address: Dialysis Schedule: Phone: Fax: Transmissions Systems Operator/Planograph Operator signature: {Esignature:375395914} PHYSICIAN SECTION Prognosis: {Prognosis:1926548956} Condition at Discharge: { Patient Condition:071308627} Rehab Potential (if transferring to Rehab): {Prognosis:7680975396} Recommended Labs or Other Treatments After Discharge: Physician Certification: I certify the above information and transfer of Kwabena Messer is necessary for the continuing treatment of the diagnosis listed and that he requires {Admit to Appropriate Level of Care:65973} for {GREATER/LESS:845254540} 30 days. Update Admission H&P: {CHP DME Changes in HandP:889625774} PHYSICIAN SIGNATURE: {Esignature:692666013} * Additional Instructions* Ava Enriquez RN - 01/13/2019 Verbally reviewed discharge instructions for care and follow up. Previous print out of these instructions were given with prior treatment. Pt verbalized understanding of instructions given verbally. documented in this encounter* Discharge Instr - JESSICA* Ava Enriquez RN - 01/14/2019 10:00 AM EST Continuity of Care Form Patient Name: Kwabena Messer : 1950 Admit date: 01/14/2019 Discharge date: Code Status Order: Prior Advance Directives: Admitting Physician: No admitting provider for patient encounter. PCP: Phil Crenshaw MD Discharging Nurse: Discharging Hospital Unit/Room#: No information available for this encounter. Discharging Unit Phone Number: Emergency Contact: Extended Emergency Contact Information Primary Emergency Contact: AydeStormy Address: [address] [place] [address] Relation: Spouse Past Surgical History: Past Surgical [...] yrs and older) 11/23/2017 Pneumococcal Conjugate 13-valent ([id number]) 11/23/2017 Pneumococcal Polysaccharide ([id number]) 03/13/2012 Active Problems: Patient Active Problem List Diagnosis Code Essential hypertension I10 Type 2 diabetes mellitus without complication, without long-term current use of insulin ([facility]) E11.9 Hyperlipidemia E78.5 Acute pain of right hip M25.551 Primary osteoarthritis of right hip M16.11 Osteoarthritis of knee M17.10 Degenerative arthritis of hip M16.9 Depression, major, in remission (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) E08.65 Morbid obesity with BMI of 50.0-59.9, adult ([facility]) E66.01, Z68.43 Gluteal abscess L02.31 Isolation/Infection: [...] MENTAL STATUS:} IV Access: { JESSICA IV ACCESS:154136412} Nursing Mobility/ADLs: Walking {CHP DME ADLs:537584810} Transfer {CHP DME ADLs:302649564} Bathing {CHP DME ADLs:581471354} Dressing {CHP DME ADLs:415183725} Toileting {CHP DME ADLs:157360815} Feeding {CHP DME ADLs:969276848} Crowning Inspector {CHP DME ADLs:804678242} Med Delivery { JESSICA MED Delivery:618619333} Wound Care Documentation and Therapy: Elimination: Continence: Bowel: {YES / NO:} Bladder: {YES / NO:} Urinary Catheter: {Urinary Catheter:266426829} Colostomy/Ileostomy/Ileal Conduit: {YES / NO:} Date of Last BM: No intake or output data in the 24 hours ending 01/14/19 1045 No intake/output data recorded. Safety Concerns: { JESSICA Safety Concerns:047405846} Impairments/Disabilities: { JESSICA Impairments/Disabilities:085231493} Nutrition Therapy: Current Nutrition Therapy: { JESSICA Diet List:112212002} Routes of Feeding: {CHP DME Other Feedings:833443196} Liquids: {Switch Engineer liquid thickness:78075} Daily Fluid Restriction: {CHP DME Yes amt example:695167658} Last Modified Barium Swallow with Video (Video Swallowing Test): {Done Not Done Date:} Treatments at the Time of Hospital Discharge: Respiratory Treatments: Oxygen Therapy: {Therapy; copd oxygen:37038} Ventilator: { [facility] Vent List:343598851} Rehab Therapies: {THERAPEUTIC INTERVENTION:3506466781} Weight Bearing Status/Restrictions: { [facility] Weight Bearin} Other Medical Equipment (for information only, NOT a DME order): {EQUIPMENT:196275345} Other Treatments: Patient's personal belongings (please select all that are sent with patient): {P DME Belongings:472564747} RN SIGNATURE: {Esignature:377561147} CASE MANAGEMENT/SOCIAL WORK SECTION Inpatient Status Date: Readmission Risk Assessment Score: Readmission Risk Risk of Unplanned Readmission: 0 Discharging to Facility/ Agency Name: Address: Phone: Fax: Dialysis Facility (if applicable) Name: Address: Dialysis Schedule: Phone: Fax: Transmissions Systems Operator/Planograph Operator signature: {Esignature:712261259} PHYSICIAN SECTION Prognosis: {Prognosis:3538984606} Condition at Discharge: { Patient Condition:272322150} Rehab Potential (if transferring to Rehab): {Prognosis:5290514817} Recommended Labs or Other Treatments After Discharge: Physician Certification: I certify the above information and transfer of Kwabenagurmeet Roquenhan is necessary for the continuing treatment of the diagnosis listed and that he requires {Admit to Appropriate Level of Care:18119} for {GREATER/LESS:881321209} 30 days. Update Admission H&P: {CHP DME Changes in HandP:235402436} PHYSICIAN SIGNATURE: {Esignature:660801813} * Additional Instructions* Ava Enriquez RN - 01/14/2019 Verbally reviewed discharge instructions for care and follow up. Previous print out of these instructions were given with prior treatment. Pt verbalized understanding of instructions given verbally. documented in this encounter* Instructions* Monica Garcia RN - 01/17/2019 Patient and state said that his could change the dressing at home after today. Attempted to contact But no one in the office until Tuesday. demonstrated and performed the dressing change today without complications. Informed patient to contact Dr. Cooper if has any questions or complications. States understanding. documented in this encounter* Instructions* Monica Garcia RN - 01/15/2019 Outpatient Discharge Instructions for Wounds [address] [address] You are advised to carry out the [...] directions explained to pt, as well as space control supervisor who makes arrangements for pt to go to [facility] for daily dressing changes at 1000. [...] Referral Specialty Diagnoses / Procedures Referred By Sultana dos santos Referred To Contact Radiology Diagnoses Abnormal x-ray Lung density on x-ray Procedures CT CHEST W CONTRAST Marisol Carr MD [address] [address] Referral ID Status Reason Start Date Expiration Date V isits Requested Visits Authorized [id number] Not Required - RTA 03/18/2023 03/17/2024 1 1 Additional Source Comments (unrecognized sect ion and content) No Status Records FoundNo Status Records FoundNo Status Records FoundNo Status Records FoundNo Status Records FoundNo Status Records FoundNo Status Records Found INFORMATION SOURCE (unrecogn ized section and content) DATE CREATED AUTHOR 08/16/2017 [facility] DATE CREATED AUTHOR AUTHOR'S ORGANIZ ATION 11/18/2017 [facility] DATE CREATED AUTHOR AUTHOR'S ORGANIZ ATION 01/17/2019 [facility] DATE CREATED AUTHOR AUTHOR'S ORGANIZ ATION 06/09/2023 [facility] DATE CREATED AUTHOR AUTHOR'S ORGANIZ ATION 07/10/2023 [facility] DATE CREATED AUTHOR AUTHOR'S ORGANIZ ATION 07/30/2023 [facility] DATE CREATED AUTHOR AUTHOR'S ORGANIZ ATION 10/03/2023 [facility] Reason for Visit (unrecogniz ed section and content) Status Reason Specialty Diagnoses / Procedures Referre d By Contact Referred To Contact Diagnoses nancy rectal abscess Procedures CA I&D RECTAL SUBMUCOSAL ABSCESS RECTAL PERIRECTAL INCISION AND DRAINAGE Jessica Cooper MD [address] [place] [address] [address] [place] [address] [facility] Specialty Diagnoses / Procedures Referred By Sultana dos santos Referred To Contact Radiology Diagnoses Abnormal x-ray Lung density on x-ray Procedures CT CHEST W CONTRAST Marisol Carr MD [address] [place], [place] [address] [place] [id number] Referral ID Status Reason Start Date Expiration Date V isits Requested Visits Authorized [id number] Not Required - RTA 03/18/2023 03/17/2024 1 1 Reason Comments Appointment Care Teams (unrecognized sec tion and content) Fleshing Machine Operator Relationship Specialty Start Date End Date Phil Crenshaw MD [address] [place] [address] [address] [place] [address] PCP - General 03/22/11 Fleshing Machine Operator Relationship Specialty Start Date End Date Phil Crenshaw MD [address] [place] [address] [address] [place] [address] PCP - General 03/22/11 Fleshing Machine Operator Relationship Specialty Start Date End Date Phil Crenshaw MD [address] [place] [address] [address] [place] [address] PCP - General 03/22/11 Fleshing Machine Operator Relationship Specialty Start Date End Date Marisol Carr MD [address] [place], [place] [address] [place] [address] PCP - General Family Medicine 06/15/22 Fleshing Machine Operator Relationship Specialty Start Date End Date Marisol Carr MD [address] [place], [place] [address] [place] [address] PCP - General Family Medicine 06/15/22 Fleshing Machine Operator Relationship Specialty Start Date End Date Cira Quijano MD [address] [place] [address] Referring Cardiology 05/19/23 Fleshing Machine Operator Relationship Specialty Start Date End Date Cira Quijano MD [address] [place] [address] Referring Cardiology 05/19/23 Source Comments (unrecognize d section and content) In the event this informatio n is protected by the Federal Confidentiality of Alcohol and Drug Abuse Patient Records regulations: The Federal rules restrict any use of the information to criminally investigate or prosecute any alcohol or drug abuse patient.[facility] Center[facility] the event this information is protected by the Federal Confidentiality of Alcohol and Drug Abuse Patient Records regulations: The Federal rules restrict any use of the information to criminally investigate or prosecute any alcohol or drug abuse patient.[facility] FOR RECORDS PERTAINING TO PATIENTS WHO ARE [...] BE BASED ON THE PRIMARY CLINICAL RECORDS. [facility] [employer] provides no warranty or guarantee of the accuracy or completeness of information in this document.
[2023-11-22 10:24] LABS: Anion Gap 10.7; BUN Creatinine Ratio 20.2; Calcium 9.9 mg/dL (8.5-10.1); Carbon Dioxide 27.1 mmol/L (21.0-32.0); Chloride 103 mmol/L (98-107); Estimated GFR (African America >60 (>=60); Estimated GFR (Non-African Ame >60 (>=60); Glucose 107 mg/dL (74-106); Potassium 3.8 mmol/L (3.5-5.1); Sodium 137 mmol/L (136-145)
== END 2023-11-22 08:25 | disposition home or self-care (01) ==
LOC: PST 08:26
PROVIDERS: Visit Provider Orthopaedic Surgery
DX: Z01.812 Encounter for preprocedural laboratory examination (principal); Z01.810 Encounter for preprocedural cardiovascular examination; G56.01 Carpal tunnel syndrome, right upper limb
CPT/HCPCS: 36415; 80048; 83036; 93005

== ENCOUNTER 2023-11-28 13:06 | Day surgery (SDC) | payer MEDICARE, OTHER, SELFPAY ==
[2023-11-22 09:35] VITALS: BP 143/78; PULSE 80; TEMP 36.3; O2SAT 98; BMI 59.2
--- OUTSIDE RECORDS SUMMARY | 2023-11-28 13:25 | XMS_ITS | CCD ---
Author Organization [facility] Care Team Providers Care Section Laborer Name Role Phone ONEIL WILLIAMOSN Unavailable Unavailable GEHLINGONEIL J Unavailable Unavailable GEHLINGONEIL [...] Drug Class(es) Dates Sig (Normalized) Sig (Original) [id number] 200 actuat albuterol 0.09 mg/actuat metered dose [...] complication, with long-term current use of insulin ([facility]) Inject 30 Units into the skin nightly [...] 01-12-2019 morphine (PF) injection 1 mg nystatin 225245 unt/ml / triamcinolone acetonide 1 mg/ml topical cream (6 sources) Polyene Antifungal, Corticosteroid Start: 11-17-2016 nystatin-triamcin olone (MYCOLOG II) 194932-4.1 UNIT/GM-% cream Apply topically 2 times daily [...] disease (2 sources) Atherosclerotic heart disease of [place] coronary artery without angina pectoris; Translations: [Atherosclerotic heart disease of [place] coronary artery without angina pectoris] Onset: 07-26-2023 [...] intermodal yard (current) use of insulin; Translations: [half-way (current) use of insulin] Onset: 10-20-2022 Episodic [...] (current) use of oral hypoglycemic drugs; Translations: [NURSING HOME (CURRENT) USE OF ORAL HYPOGLYCEMIC DRUGS] Onset: [...] 09-16-2022 09-16-2022 Episodic Other aftercare (3 sources) half-way (current) use of aspirin; Translations: [Other mcfp (current) drug therapy] Onset: 10-12-2016 Episodic Other [...] Range Facility Office Visiton 09-30-2023 Follow-up visit [id number] AydeKwabena L 1950 M Date Provider Department Center 09/30/2023 [id number] QUIJANO ELIOT [facility] Family History Problem Relation Age of Onset Other Father Family Status - Relation Status Age at Father Level of Service:36364 [place] OFFICE/OUTPATIENT ESTABLISHED LOW MDM 20 MIN Normal [facility] 36on 08-23-[address] Quijano- Patient underwent heart cath on 08/11/2023 which revealed non-obstructive coronary arteries. Patient may proceed with carpal tunnel surgery at moderate risk, with no further cardiovascular testing needed at this time. [facility] ---- -------- Attestation signed by [...] medical history of Abnormal ECG, Diabetes mellitus ([facility]), Hyperlipidemia, Hypertension, and Sleep apnea. Surgical History [...] the morning and at bedtime. HYDROcodone-acetaminophe n ([place]) 5-325 mg tablet Take 1 tablet by [...] sounds a (more content not included)... Normal [facility] HP I personally saw and examined [...] medical history of Abnormal ECG, Diabetes mellitus ([facility]/HCC), Hyperlipidemia, Hypertension, and Sleep apnea. Surgical History [...] morbid obesity - Plan: Transesophageal echo Normal [facility] [place] 08-11-2023 CHUCHO RN educated pt on d/ c instructions. RN encouraged pt to voice any questions or concerns. Pt verbalizes no questions or concerns at this time. Normal [facility] NURSNOTE Patient passed bedsi de swallow study. Normal [facility] XR HUMERUS RIGHT (MIN 2 VIEW [...] Francis Leyva MD 07/30/23 Final result Normal [facility] XR SHOULDER RIGHT (MIN 2 VIE [...] Francis Leyva MD 07/30/23 Final result Normal [facility] CBC with Diffon 07-29-2023 Abs. Basophil 0.10 k/uL Normal 0.00-0.20 [facility] Comment on above: Performed By: #### G LYHGB #### [facility] [place] [address] Heat Regulator: Dexter Madera MD #### CDP, CP #### [address] [place], [place] [address]83 Heat Regulator: Barak Garcia MD Abs.Imm.Granulocy te 0.03 k/uL Normal 0.00-0.30 [facility] Comment on above: Performed By: #### G LYHGB #### [address] [id number] Heat Regulator: Dexter Madera MD #### CDP, CP #### [address] [place] [id number] Heat Regulator: Barak Garcia MD Abs.Neutrophil (Seg) 6.45 k/uL Normal 1.50-8.10 [facility] Comment on above: Performed By: #### G LYHGB #### [address] [id number] Heat Regulator: Dexter Madera MD #### CDP, CP #### [address] [place] [address] Heat Regulator: Barak Garcia MD Basophils/100 WBC (Bld) 1 % Normal 0-2 [facility] Comment on above: Performed By: #### G LYHGB #### [address] [address] Heat Regulator: Dexter Madera MD #### CDP, CP #### [address] [place] [address] Heat Regulator: Barak Garcia MD Eosinophils (Bld) [#/Vol] 0.41 10*3/uL Normal 0.00-0.44 [facility] Comment on above: Performed By: #### G LYHGB #### [address] [address] Heat Regulator: Dexter Madera MD #### CDP, CP #### [address] [place] 1523983 Heat Regulator: Barak Garcia MD Eosinophils/100 WBC (Bld) 5 % High 1-4 [facility] Comment on above: Performed By: #### G LYHGB #### [address] [id number] Heat Regulator: Dexter Madera MD #### CDP, CP #### [address] [place], [place] 2562283 Heat Regulator: Barak Garcia MD Erythrocyte distribution width (RBC) [Ratio] 14.2 % Normal 11.8-14.4 [facility] Comment on above: Performed By: #### G LYHGB #### [address] 3631008 Heat Regulator: Dexter Madera MD #### CDP, CP #### [address] [place] 5[address]283 Heat Regulator: Barak Garcia MD Hematocrit (Bld) [Volume fraction] 38.9 % Low 40.7-50.3 [facility] Comment on above: Performed By: #### G LYHGB #### [address] [address] Heat Regulator: Dexter Madera MD #### CDP, CP #### [address] [place], [place] 9996083 Heat Regulator: Barak Garcia MD Hemoglobin (Bld) [Mass/Vol] 12.6 g/dL Low 13.0-17.0 [facility] Comment on above: Performed By: #### G LYHGB #### [address] [address] Heat Regulator: Dexter Madera MD #### CDP, CP #### [address] [place] [address] Heat Regulator: Barak Garcia MD Immature granulocytes/100 WBC (Bld) 0 % Normal 0 [facility] Comment on above: Performed By: #### G LYHGB #### [address] [address] Heat Regulator: Dexter Madera MD #### CDP, CP #### [address] [place] 5324283 Heat Regulator: Barak Garcia MD Lymphocytes (Bld) [#/Vol] 1.37 10*3/uL Normal 1.10-3.70 [facility] Comment on above: Performed By: #### G LYHGB #### [address] [id number] Heat Regulator: Dexter Madera MD #### CDP, CP #### [address] [place] 5324283 Heat Regulator: Barak Garcia MD Lymphocytes/100 WBC (Bld) 15 % Low 24-43 [facility] Comment on above: Performed By: #### G LYHGB #### [address] [address] Heat Regulator: Dexter Madera MD #### CDP, CP #### [address] [place] [id number] Heat Regulator: Barak Garcia MD MCH (RBC) [Entitic mass] 28.4 pg Normal 25.2-33.5 [facility] Comment on above: Performed By: #### G LYHGB #### [address] [address] Heat Regulator: Dexter Madera MD #### CDP, CP #### [address] [place], [place] 3358383 Heat Regulator: Barak Garcia MD MCHC (RBC) [Mass/Vol] 32.4 g/dL Normal 28.4-34.8 [facility] Comment on above: Performed By: #### G LYHGB #### [address] [address] Heat Regulator: Dexter Madera MD #### CDP, CP #### [address] [place] [phone] Heat Regulator: Barak Garcia MD MCV (RBC) [Entitic vol] 87.6 fL Normal 82.6-102.9 [facility] Comment on above: Performed By: #### G LYHGB #### [address] [address] Heat Regulator: Dexter Madera MD #### CDP, CP #### [address] [place] [id number] Heat Regulator: Barak Garcia MD Monocytes (Bld) [#/Vol] 0.66 10*3/uL Normal 0.10-1.20 [facility] Comment on above: Performed By: #### G LYHGB #### [address] [address] Heat Regulator: Dexter Madera MD #### CDP, CP #### [address] [place] [address]324283 Heat Regulator: Barak Garcia MD Monocytes/100 WBC (Bld) 7 % Normal 3-12 [facility] Comment on above: Performed By: #### G LYHGB #### [address] [address] Heat Regulator: Dexter Madera MD #### CDP, CP #### [address] [place] [phone] Heat Regulator: Barak Garcia MD Neutrophil (Seg) 72 % High 36-65 [facility] Comment on above: Performed By: #### G LYHGB #### [place] [address] [place] [address] Heat Regulator: Dexter Madera MD #### CDP, CP #### [facility] [address] [place], [place] 872[address]83 Heat Regulator: Barak Garcia MD NRBC Automated 0.0 per 100 WBC Normal 0.0 [facility] Comment on above: Performed By: #### G LYHGB #### [address] [address] Heat Regulator: Dexter Madera MD #### CDP, CP #### [facility] [address] [place] [address] Dr. [place], [place] 6953183 Heat Regulator: Barak Garcia MD Platelet mean volume (Bld) [Entitic vol] 9.3 fL Normal 8.1-13.5 [facility] Comment on above: Performed By: #### G LYHGB #### [address] [address] Heat Regulator: Dexter Madera MD #### CDP, CP #### [address] [place], [place] 9955983 Heat Regulator: Barak Garcia MD Platelets (Bld) [#/Vol] 356 10*3/uL Normal 138-453 [facility] Comment on above: Performed By: #### G LYHGB #### [address] [address] Heat Regulator: Dexter Madera MD #### CDP, CP #### [facility] [address] [place] [address] Dr. [place], [place] 7768483 Heat Regulator: Barak Garcia MD RBC (Bld) [#/Vol] 4.44 10*6/uL Normal 4.21-5.77 [facility] Comment on above: Performed By: #### G LYHGB #### [place] [address] [place] [address] Heat Regulator: Dexter Madera MD #### CDP, CP #### [address] [place] [address] Heat Regulator: Barak Garcia MD WBC (Bld) [#/Vol] 9.0 10*3/uL Normal 3.5-11.3 [facility] Comment on above: Performed By: #### G LYHGB #### [address] [address] Heat Regulator: Dexter Madera MD #### CDP, CP #### [address] [place], [place] 9638883 Heat Regulator: Barak Garcia MD Comp Metabolic Profon 2023 Albumin [Mass/Vol] 4.0 g/dL Normal 3.5-5.2 [facility] Comment on above: Performed By: #### G LYHGB #### [address] [address] Heat Regulator: Dexter Madera MD #### CDP, CP #### [address] [place], [place] 6262683 Heat Regulator: Barak Garcia MD Albumin/Glob Ratio 1.3 Normal 1.0-2.5 [facility] Comment on above: Performed By: #### G LYHGB #### [address] [address] Heat Regulator: Dexter Madera MD #### CDP, CP #### [address] [place] [address] Heat Regulator: Barak Garcia MD Alkaline Phos 72 U/L Normal 40-129 [facility] Comment on above: Performed By: #### G LYHGB #### [address] [address] Heat Regulator: Dexter Madera MD #### CDP, CP #### [facility] [address] [place], [place] 8246083 Heat Regulator: Barak Garcia MD ALT [Catalytic activity/Vol] 36 U/L Normal 5-41 [facility] Comment on above: Performed By: #### G LYHGB #### [address] [address] Heat Regulator: Dexter Madera MD #### CDP, CP #### [facility] [address] [place], [place] 8733683 Heat Regulator: Barak Garcia MD Anion gap [Moles/Vol] 13 mmol/L Normal 9-17 [facility] Comment on above: Performed By: #### G LYHGB #### [address] [address] Heat Regulator: Dexter Madera MD #### CDP, CP #### [address] [place], [place] 5860783 Heat Regulator: Barak Garcia MD AST [Catalytic activity/Vol] 30 U/L Normal <40 [facility] Comment on above: Performed By: #### G LYHGB #### [address] [address] Heat Regulator: Dexter Madera MD #### CDP, CP #### [facility] [address] [place] [address] Heat Regulator: Barak Garcia MD Bilirubin [Mass/Vol] 0.3 mg/dL Normal 0.3-1.2 [facility] Comment on above: Performed By: #### G LYHGB #### [address] [address] Heat Regulator: Dexter Madera MD #### CDP, CP #### [facility] [address] [place], [place] 2989783 Heat Regulator: Barak Garcia MD BUN/CRE Ratio 21 High 9-20 [facility] Comment on above: Performed By: #### G LYHGB #### [address] [address] Heat Regulator: Dexter Madera MD #### CDP, CP #### [facility] [address] [place], [place] 8717283 Heat Regulator: Barak Garcia MD Calcium [Mass/Vol] 9.5 mg/dL Normal 8.6-10.4 [facility] Comment on above: Performed By: #### G LYHGB #### [address] [address] Heat Regulator: Dexter Madera MD #### CDP, CP #### [address] [place], [place] 824[address]83 Heat Regulator: Barak Garcia MD Chloride [Moles/Vol] 102 mmol/L Normal 98-107 [facility] Comment on above: Performed By: #### G LYHGB #### [address] [address] Heat Regulator: Dexter Madera MD #### CDP, CP #### [address] [place], [place] 3656383 Heat Regulator: Barak Garcia MD CO2 [Moles/Vol] 23 mmol/L Normal 20-31 [facility] Comment on above: Performed By: #### G LYHGB #### [address] [address] Heat Regulator: Dexter Madera MD #### CDP, CP #### [address] [place], [place] 2645483 Heat Regulator: Barak Garcia MD Creatinine [Mass/Vol] 0.7 mg/dL Normal 0.7-1.2 [facility] Comment on above: Performed By: #### G LYHGB #### [place] [address] [place] [address] Heat Regulator: Dexter Madera MD #### CDP, CP #### [address] [place], [place] 8645583 Heat Regulator: Barak Garcia MD GFR/1.73 sq M.predicted among non-blacks MDRD (S/P/Bld) [Vol rate/Area] mL/min/{1.73_m2} Normal >60 [facility] Comment on above: Result Comment: These [...] secretion. Performed By: #### G LYHGB #### [facility] [address] [place] [address] Heat Regulator: Dexter Madera MD #### CDP, CP #### [address] [place], [place] 0403483 Heat Regulator: Barak Garcia MD Glucose [Mass/Vol] 169 mg/dL High 70-99 [facility] Comment on above: Performed By: #### G LYHGB #### [place] [address] [place] [address] Heat Regulator: Dexter Madera MD #### CDP, CP #### [address] [place], [place] 5615383 Heat Regulator: Barak Garcia MD Potassium [Moles/Vol] 4.1 mmol/L Normal 3.7-5.3 [facility] Comment on above: Performed By: #### G LYHGB #### [address] [address] Heat Regulator: Dexter Madera MD #### CDP, CP #### [facility] [address] [place] [address] Dr. [place], [place] 1600483 Heat Regulator: Barak Garcia MD Protein [Mass/Vol] 7.1 g/dL Normal 6.4-8.3 [facility] Comment on above: Performed By: #### G LYHGB #### [address] [address] Heat Regulator: Dexter Madera MD #### CDP, CP #### [address] [place] [address] Heat Regulator: Barak Garcia MD Sodium [Moles/Vol] 138 mmol/L Normal 135-144 [facility] Comment on above: Performed By: #### G LYHGB #### [address] [address] Heat Regulator: Dexter Madera MD #### CDP, CP #### [facility] [address] [place] [address] Dr. [place], [place] 0065683 Heat Regulator: Barak Garcia MD Urea nitrogen [Mass/Vol] 15 mg/dL Normal 8-23 [facility] Comment on above: Performed By: #### G LYHGB #### [address] [address] Heat Regulator: Dexter Madera MD #### CDP, CP #### [facility] [address] [place] [address] [place] [address] Heat Regulator: Barak Garcia MD Hemoglobin A1Con 07-29-2023 Glucose [Mass/Vol] 197 mg/dL Normal [facility] Comment on above: Result Comment: The ADA and AACC recommend providing the estimated average glucose result to permit better patient understanding of their HBA1c result. Performed By: #### G LYHGB #### [place] [address] [place] [address] Heat Regulator: Dexter Madera MD #### CDP, CP #### [facility] [address] [place], [place] 9602583 Heat Regulator: Barak Garcia MD HbA1c (Bld) [Mass fraction] 8.5 % High 4.0-6.0 [facility] Comment on above: Performed By: #### G LYHGB #### [address] [address] Heat Regulator: Dexter Madera MD #### CDP, CP #### [facility] [address] [place], [place] 7191483 Heat Regulator: Barak Garcia MD Lipid Profileon 07-29-2023 Cholesterol [Mass/Vol] 125 mg/dL Normal 0-199 [facility] Comment on above: Result Comment: Cholesterol Guidelines: <200 Desirable 200-240 Borderline >240 Undesirable Performed By: #### L IPR ####[address] [address] Lab Director: Dexter Madera MD Cholesterol in HDL [Mass/Vol] 32 mg/dL Low >40 [facility] Comment on above: Result Comment: HDL Guidelines: <40 Undesirable 40-59 Borderline >59 Desirable Performed By: #### L IPR ####[address] [address] Lab Director: Dexter Madera MD Cholesterol in LDL [Mass/Vol] 65 mg/dL Normal 0-100 [facility] Comment on above: Result Comment: LDL Guidelines: <100 Desirable 100-129 Near to/above Desirable 130-159 Borderline >159 Undesirable Direct (measured) LDL and calculated LDL are not interchangeable tests. Performed By: #### L IPR ####[facility] [id number] [place] [address] lab Director: Dexter Madera MD Cholesterol in VLDL [Mass/Vol] 29 mg/dL Normal [facility] Comment on above: Performed By: #### L IPR ####[facility] [address] [place] [address] lab Director: Dexter Madera MD Cholesterol.total /Cholesterol in HDL [Mass ratio] 4.0 {ratio} Normal [facility] Comment on above: Performed By: #### L IPR ####[facility] [id number] [place] [address] lab Director: Dexter Madera MD Triglyceride [Mass/Vol] 143 mg/dL Normal <150 [facility] Comment on above: Result Comment: Triglyceride Guidelines: <150 Desirable 150-199 Borderline 200-499 High >499 Very high Based on AHA Guidelines for fasting triglyceride, November 2011. Performed By: #### L IPR ####[facility] [address] [place] [address] lab Director: Dexter Madera MD Orders Onlyon 07-25-2023 Orders Only [id number] Kwabena Messer 1950 M Date Provider Department [place] 07/25/2023 [facility] ISAAC ELIOT [facility] Family History Problem Relation Age of Onset Other Father Family Status - Relation Status Age at Father Normal [facility] MRI CARD MORPH FUNC WO/W IVC ONon 07-08-2023 MRI CARD MORPH FUNC WO/W IVCON * * *Final Report* * * DATE OF EXAM: Jul 08 2023 10:08AM J 0703 - MRI CARD MORPH FUNC WO/W IVCON / PROCEDURE REASON: . * * * * Physician Interpretation * * * * Cardiac MRI Report: [facility] Date of service: 07/08/2023 9:13:26 AM Linked orders:[id number] CARD MORPH FUNC WO/W IVCON;. Ordering physician: [...] * * Final * * * RP Channel Process Supervisor: HANSEL Transcribe Date/Time: Jul 08 2023 9:13A Dictated by : ROB MAHARAJ MD This examination was interpreted and the report reviewed and electronically signed (more content not included)... Normal [facility] MRI CARDIAC MORPH FUN WO/W IVCONon 07-08-2023 [...] * * Final * * * RP Channel Process Supervisor: HANSEL Transcribe Date/Time: Jul 08 2023 9:13A Dictated by : ROB MAHARAJ MD This examination was interpreted and the report reviewed and electronically signed by: ROB MAHARAJ MD on Jul 08 2023 11:15AM [facility] DIVISION OF RADIOLOGY * * *Final Report* * * DATE OF EXAM: Jul 08 2023 10:08AM [facility] 0703 - MRI CARD MORPH FUNC WO/W IVCON / PROCEDURE REASON: . * * * * Physician Interpretation * * * * Cardiac MRI Report: [facility] [place] Date of service: 07/08/2023 9:13:26 AM Linked orders:[id number] CARD MORPH FUNC WO/W IVCON;. Ordering physician: [...] pericardium is normal. DIVISION OF RADIOLOGY Provider, [facility] - 07/08/2023 * * *Final Report* * * DATE OF EXAM: Jul 08 2023 10:08AM JQM 0703 - MRI CARD MORPH FUNC WO/W IVCON / PROCEDURE REASON: . * * * * Physician Interpretation * * * * Cardiac MRI Report: [facility] Date of service: 07/08/2023 9:13:26 AM Linked orders:[id number] CARD MORPH FUNC WO/W IVCON;. Ordering physician: [...] * * Final * * * RP Channel Process Supervisor: (more content not included)... [facility] Radiology Study observation (narrative) [facility] MRI CARDIAC MORPH FUNC WO/W IVCONOrdered By: [facility] Provider on 07-08-2023 [facility] Gwen 2023 CNPN Telephone (CARDMN) -------- KWABENA MESSER ([id number]) 1950 M Date Time Provider Department 06/03[facility]23 [facility] MANOJ During your visit today, we recorded the following information about you: Mari Austin 2023 2:16 PM Signed RP Patient already scheduled for 07/07 for CARDIAC MRI. Case closed. Allergies As of Date: 2023 (Not on File) Date Reviewed: Never Reviewed Reason for Visit: Appointment [186] Problem List As Of Date: 2023 (None) Encounter Status:Closed by MARI AUSTIN on 06/03/23 Normal [facility] Gwen 05-19-2023 CNPN Telephone (REFPHY) -------- AYDEHIRAKWABENA L ([id number]) 1950 Date Time Provider Department 05/19/23 NO ONE (HISTORICAL) REFPHY During your visit today, we recorded the following information about you: Reid Del Toro 05/19/2023 9:20 AM Signed Patient: Kwabena Messer Date of : 1950 Patient phone number: [phone] Referring Provider for the encounter: Cira Quijano' Requesting Provider: MRI cardiac morphology and function with and with IV contrast Reason for requesting visit (RFV/signs and symptoms/diagnosis): Abnormal echo (R93.1); Cardiac mass (I51.89). Person calling: caregiver: Reid Return call to: self Medical Records/Insurance Card scanned into [employer]: Yes Comments: Allergies As of Date: 05/19/2023 (Not on File) Date Reviewed: Never Reviewed Reason for Visit: External Referrals/resources [909] Problem List As Of Date: 05/19/2023 (None) Encounter Status:Closed by REID DEL TORO on 05/19/23 Normal [facility] CTA HEART CORONARY W IV CONT [place] [...] Electronically signed: Sumanth Power Invalid Interpretation Code [facility] Office Visiton 04-15-2023 Follow-up visit [id number] AydeHiraKwabena L 1950 M Date Provider Department Center 04/15/2023 3848-CIRA QUIJANO Family History Problem Relation Age of Onset Other Father Family Status - Relation Status Age at Father Level of Service:29963 [place] OFFICE/OUTPATIENT NEW MODERATE MDM 45 MINUTES Normal [facility] CT CHEST W CONTRASTon 2023 CT [...] Sukhwinder Man MD 04/02/23 Final result Normal [facility] CT Chest W contrast Eboni No acute cardiopulmo nary process. [facility] CONSOLIDATED EXAMINATION: CT OF THE CHEST WITH [...] are noted. IMPRESSION: No acute cardiopulmonary process. [facility] W contrast IVOrdere d By: Sukhwinder Man on 04-02-2023 [facility] [employer] [facility] Work Phone: CBC with Auto Differentialon 03-31-2023 Basophils (Bld) [#/Vol] 0.14 10*3/uL [facility] [employer] Basophils/100 WBC (Bld) 1 % 0 - 2 % [facility] Eosinophils (Bld) [#/Vol] 0.65 10*3/uL High [facility] Eosinophils/100 WBC (Bld) 6 % High 1 - 4 % [facility] Erythrocyte distribution width (RBC) [Ratio] 13.2 % 11.8 - 14.4 % [facility] Hematocrit (Bld) [Volume fraction] 40.0 % Low 40.7 - 50.3 % [facility] Hemoglobin (Bld) [Mass/Vol] 12.9 g/dL Low 13.0 - 17.0 g/dL [facility] Immature granulocytes (Bld) [#/Vol] 0.08 10*3/uL [facility] Immature granulocytes/100 WBC (Bld) 1 % High 0 [facility] Interpretation and review of laboratory results Abnormal [facility] Lymphocytes/100 WBC (Bld) 23 % Low 24 - 43 % [facility] Lymphocytes/100 WBC (Bld) 2.37 % [facility] MCH (RBC) [Entitic mass] 28.9 pg 25.2 - 33.5 pg [facility] [facility] MCHC (RBC) [Mass/Vol] 32.3 g/dL 28.4 - 34.8 g/dL [facility] MCV (RBC) [Entitic vol] 89.7 fL 82.6 - 102.9 fL [facility] Monocytes/100 WBC (Bld) 8 % 3 - 12 % [facility] Monocytes/100 WBC (Bld) 0.81 % [facility] Neutrophils/100 WBC (Bld) 61 % 36 - 65 % [facility] Nucleated RBC/100 WBC (Bld) [Ratio] 0.0 % 0.0 per 100 WBC [facility] Platelet mean volume (Bld) [Entitic vol] 8.8 fL 8.1 - 13.5 fL [facility] Platelets (Bld) [#/Vol] 440 10*3/uL [facility] RBC (Bld) [#/Vol] 4.46 10*6/uL 4.21 - 5.7 7 m/uL [facility] Segmented neutrophils/100 WBC (Bld) 6.41 % [facility] WBC other (Bld) [#/Vol] 10.5 [facility] CBC with Diffon 03-31-2023 Abs. Basophil 0.14 k/uL Normal 0.00-0.20 [facility] Comment on above: Performed By: #### C DP, CP ####[address] [place] [address] Lab Director: Barak Garcia MD Abs.Imm.Granulocy te 0.08 k/uL Normal 0.00-0.30 [facility] Comment on above: Performed By: #### C DP, CP ####[facility] [place] [address] Lab Director: Barak Garcia MD Abs.Neutrophil (Seg) 6.41 k/uL Normal 1.50-8.10 [facility] Comment on above: Performed By: #### C DP, CP ####[facility] [place] [address] Lab Director: Barak Garcia MD Basophils/100 WBC (Bld) 1 % Normal 0-2 [facility] Comment on above: Performed By: #### C DP, CP ####[address] [place] [address] Lab Director: Barak Garcia MD Eosinophils (Bld) [#/Vol] 0.65 10*3/uL High 0.00-0.44 [facility] Comment on above: Performed By: #### C DP, CP ####[address] [place] [address] Lab Director: Barak Garcia MD Eosinophils/100 WBC (Bld) 6 % High 1-4 [facility] Comment on above: Performed By: #### C DP, CP ####[address] , [place] [address] Lab Director: Barak Garcia MD Erythrocyte distribution width (RBC) [Ratio] 13.2 % Normal 11.8-14.4 [facility] Comment on above: Performed By: #### C DP, CP ####[address] , [facility] Lab Director: Barak Garcia MD Hematocrit (Bld) [Volume fraction] 40.0 % Low 40.7-50.3 [facility] Comment on above: Performed By: #### C DP, CP ####[address] , [facility]83 Lab Director: Barak Garcia MD Hemoglobin (Bld) [Mass/Vol] 12.9 g/dL Low 13.0-17.0 [facility] Comment on above: Performed By: #### C DP, CP ####[address] [place] [address] Lab Director: Barak Garcia MD Immature granulocytes/100 WBC (Bld) 1 % High 0 [facility] Comment on above: Performed By: #### C DP, CP ####[address] , [place] [address] Lab Director: Barak Garcia MD Lymphocytes (Bld) [#/Vol] 2.37 10*3/uL Normal 1.10-3.70 [facility] Comment on above: Performed By: #### C DP, CP ####[address] , [place] [address] Lab Director: Barak Garcia MD Lymphocytes/100 WBC (Bld) 23 % Low 24-43 [facility] Comment on above: Performed By: #### C DP, CP ####[address] , [facility]83 lab Director: Barak Garcia MD MCH (RBC) [Entitic mass] 28.9 pg Normal 25.2-33.5 [facility] Comment on above: Performed By: #### C DP, CP ####[address] , [facility]83 Lab Director: Barak Garcia MD MCHC (RBC) [Mass/Vol] 32.3 g/dL Normal 28.4-34.8 [facility] Comment on above: Performed By: #### C DP, CP ####[address] , [facility]28([facility])[phone] Director: Barak Garcia MD MCV (RBC) [Entitic vol] 89.7 fL Normal 82.6-102.9 [facility] Comment on above: Performed By: #### C DP, CP ####[address] [place] [address] Lab Director: Barak Garcia MD Monocytes (Bld) [#/Vol] 0.81 10*3/uL Normal 0.10-1.20 [facility] Comment on above: Performed By: #### C DP, CP ####[address] [place] [address] Lab Director: Barak Garcia MD Monocytes/100 WBC (Bld) 8 % Normal 3-12 [facility] Comment on above: Performed By: #### C DP, CP ####[address] [place] [address] Lab Director: Barak Garcia MD Neutrophil (Seg) 61 % Normal 36-65 [facility] Comment on above: Performed By: #### C DP, CP ####[address] [place] [address] Lab Director: Barak Garcia MD NRBC Automated 0.0 per 100 WBC Normal 0.0 [facility] Comment on above: Performed By: #### C DP, CP ####[address] , [facility]83 Lab Director: Barak Garcia MD Platelet mean volume (Bld) [Entitic vol] 8.8 fL Normal 8.1-13.5 [facility] Comment on above: Performed By: #### C DP, CP ####[address] [place] [address] Lab Director: Barak Garcia MD Platelets (Bld) [#/Vol] 440 10*3/uL Normal 138-453 [facility] Comment on above: Performed By: #### C DP, CP ####[address] [place] [address] Lab Director: Barak Garcia MD RBC (Bld) [#/Vol] 4.46 10*6/uL Normal 4.21-5.77 [facility] Comment on above: Performed By: #### C DP, CP ####[address] [place] [address] Lab Director: Barak Garcia MD WBC (Bld) [#/Vol] 10.5 10*3/uL Normal 3.5-11.3 [facility] Comment on above: Performed By: #### C DP, CP ####[address] , [place] [id number] Lab Director: Barak Garcia MD CT Chest W contrast Eboni Radiology Study observation (narrative) [facility] Comp Metabolic Profon 2023 Albumin [Mass/Vol] 4.2 g/dL Normal 3.5-5.2 [facility] Comment on above: Performed By: #### C DP, CP ####[address] , [place] [address]19[address]83 Lab Director: Barak Garcia MD Albumin/Glob Ratio 1.3 Normal 1.0-2.5 [facility] Comment on above: Performed By: #### C DP, CP ####[address] [place] [address] Lab Director: Barak Garcia MD Alkaline Phos 71 U/L Normal 40-129 [facility] Comment on above: Performed By: #### C DP, CP ####[address] , [place] [phone] Director: Barak Garcia MD ALT [Catalytic activity/Vol] 27 U/L Normal 5-41 [facility] Comment on above: Performed By: #### C DP, CP ####[address] [place] [address] Lab Director: Barak Garcia MD Anion gap [Moles/Vol] 7 mmol/L Low 9-17 [facility] Comment on above: Performed By: #### C DP, CP ####[address] , [place] 4535[address] Lab Director: Barak Garcia MD AST [Catalytic activity/Vol] 21 U/L Normal <40 [facility] Comment on above: Performed By: #### C DP, CP ####[address] [place] [address] Lab Director: Barak Garcia MD Bilirubin [Mass/Vol] 0.3 mg/dL Normal 0.3-1.2 [facility] Comment on above: Performed By: #### C DP, CP ####[address] , [place] 5357683 Lab Director: Barak Garcia MD BUN/CRE Ratio 20 Normal 9-20 [facility] Comment on above: Performed By: #### C DP, CP ####[address] , [place] [id number] Lab Director: Barak Garcia MD Calcium [Mass/Vol] 9.8 mg/dL Normal 8.6-10.4 [facility] Comment on above: Performed By: #### C DP, CP ####[address] [place] [address] Lab Director: Barak Garcia MD Chloride [Moles/Vol] 102 mmol/L Normal 98-107 [facility] Comment on above: Performed By: #### C DP, CP ####[address] [place] [address] Lab Director: Barak Garcia MD CO2 [Moles/Vol] 31 mmol/L Normal 20-31 [facility] Comment on above: Performed By: #### C DP, CP ####[address] , [place] 6889383 Lab Director: Barak Garcia MD Creatinine [Mass/Vol] 0.7 mg/dL Normal 0.7-1.2 [facility] Comment on above: Performed By: #### C DP, CP ####[address] [place] [address] Lab Director: Barak Garcia MD GFR/1.73 sq M.predicted among non-blacks MDRD (S/P/Bld) [Vol rate/Area] mL/min/{1.73_m2} Normal >60 [facility] Comment on above: Result Comment: These [...] secretion. Performed By: #### C DP, CP ####[address] [place] [address] Lab Director: Barak Garcia MD Glucose [Mass/Vol] 147 mg/dL High 70-99 [facility] Comment on above: Performed By: #### C DP, CP ####[address] [place] [address] Lab Director: Barak Garcia MD Potassium [Moles/Vol] 4.1 mmol/L Normal 3.7-5.3 [facility] Comment on above: Performed By: #### C DP, CP ####[address] [place] [address] Lab Director: Barak Garcia MD Protein [Mass/Vol] 7.5 g/dL Normal 6.4-8.3 [facility] Comment on above: Performed By: #### C DP, CP ####[address] [place] [address] Lab Director: Barak Garcia MD Sodium [Moles/Vol] 140 mmol/L Normal 135-144 [facility] Comment on above: Performed By: #### C DP, CP ####[address] , [place] 693[address]83 lab Director: Barak Garcia MD Urea nitrogen [Mass/Vol] 14 mg/dL Normal 8-23 [facility] Comment on above: Performed By: #### C DP, CP ####[facility] [place] [address] lab Director: Barak Garcia MD Comprehensive Metabolic Pane jesus 03-31-2023 Albumin [Mass/Vol] 4.2 g/dL 3.5 - 5.2 g/dL [facility] Albumin/Globulin [Mass ratio] 1.3 {ratio} 1.0 - 2.5 [facility] ALP [Catalytic activity/Vol] 71 U/L 40 - 129 U/L [facility] ALT [Catalytic activity/Vol] 27 U/L 5 - 41 U/L [facility] Anion gap [Moles/Vol] 7 mmol/L Low 9 - 17 mmol/L [facility] AST [Catalytic activity/Vol] 21 U/L NINF - 40 U/L [facility] Bilirubin [Mass/Vol] 0.3 mg/dL 0.3 - 1.2 mg/dL [facility] Calcium [Mass/Vol] 9.8 mg/dL 8.6 - 10.4 mg/dL [facility] Chloride [Moles/Vol] 102 mmol/L 98 - 107 mmol/L [facility] CO2 [Moles/Vol] 31 mmol/L 20 - 31 mmol/L [facility] Creatinine [Mass/Vol] 0.7 mg/dL 0.7 - 1.2 mg/dL [facility] GFR/1.73 sq M.predicted MDRD (S/P/Bld) [Vol rate/Area] - PINF [facility] Comment on above: These results are [...] 147 mg/dL High 70 - 99 mg/dL [facility] Interpretation and review of laboratory results Abnormal [facility] Potassium [Moles/Vol] 4.1 mmol/L 3.7 - 5.3 mmol/L [facility] Protein [Mass/Vol] 7.5 g/dL 6.4 - 8.3 g/dL [facility] Sodium [Moles/Vol] 140 mmol/L 135 - 144 mmol/L [facility] Urea nitrogen [Mass/Vol] 14 mg/dL 8 - 23 mg/dL [facility] Urea nitrogen/Creatini ne [Mass ratio] 20 mg/mg 9 - 20 [facility] Lipid Panelon 03-31-2023 Cholesterol [Mass/Vol] 141 mg/dL NINF - 200 mg/dL [facility] Comment on above: Cholesterol Guidelines: <200 Desirable 200-240 Borderline >240 Undesirable Cholesterol in HDL [Mass/Vol] 34 mg/dL Low 40 - PINF mg/dL [facility] Comment on above: HDL Guidelines: <40 Undesirable 40-59 Borderline >59 Desirable Cholesterol in LDL [Mass/Vol] 77 mg/dL 0 - 130 mg/dL [facility] Comment on above: LDL Guidelines: <100 Desirable 100-129 Near to/above Desirable 130-159 Borderline >159 Undesirable Direct (measured) LDL and calculated LDL are not interchangeable tests. Cholesterol.total /Cholesterol in HDL [Mass ratio] 4.1 {ratio} NINF - 5 [facility] Interpretation and review of laboratory results Abnormal [facility] Triglyceride [Mass/Vol] 148 mg/dL NINF - 150 mg/dL [facility] Comment on above: Triglyceride Guidelines: <150 Desirable 150-199 Borderline 200-499 High >499 Very high Based on AHA Guidelines for fasting triglyceride, November 2011. [facility] Lipid Profileon 03-31-2023 Cholesterol [Mass/Vol] 141 mg/dL Normal <200 [facility] Comment on above: Result Comment: Cholesterol Guidelines: <200 Desirable 200-240 Borderline >240 Undesirable Performed By: #### L IPR ####[facility] [address] [place] [address] Lab Director: Dexter Madera MD Cholesterol in HDL [Mass/Vol] 34 mg/dL Low >40 [facility] Comment on above: Result Comment: HDL Guidelines: <40 Undesirable 40-59 Borderline >59 Desirable Performed By: #### L IPR ####[facility] [address] [place] [address] Lab Director: Dexter Madera MD Cholesterol in LDL [Mass/Vol] 77 mg/dL Normal 0-130 [facility] Comment on above: Result Comment: LDL Guidelines: <100 Desirable 100-129 Near to/above Desirable 130-159 Borderline >159 Undesirable Direct (measured) LDL and calculated LDL are not interchangeable tests. Performed By: #### L IPR ####[facility] [address] [place] [address] [phone] Director: Dexter Madera MD Cholesterol.total /Cholesterol in HDL [Mass ratio] 4.1 {ratio} Normal <5 [facility] Comment on above: Performed By: #### L IPR ####[facility] [address] [place] [address] Lab Director: Dexter Madera MD Triglyceride [Mass/Vol] 148 mg/dL Normal <150 [facility] Comment on above: Result Comment: Triglyceride Guidelines: <150 Desirable 150-199 Borderline 200-499 High >499 Very high Based on AHA Guidelines for fasting triglyceride, November 2011. Performed By: #### L IPR ####[facility] [address] [place] [address] [phone] Director: Dexter Madera MD Hemoglobin A1Con 02-09-2023 Glucose [Mass/Vol] 186 mg/dL Normal [facility] Comment on above: Result Comment: The ADA and AACC recommend providing the estimated average glucose result to permit better patient understanding of their HBA1c result. Performed By: #### G LYHGB #### [facility] [address] [place] [address] Heat Regulator: Dexter Madera MD HbA1c (Bld) [Mass fraction] 8.1 % High 4.0-6.0 [facility] Comment on above: Performed By: #### G LYHGB #### [facility] [address] [facility] [place], [place] [id number] Heat Regulator: Dexter Madera MD XR HAND RIGHT (MIN [...] Dhaval Lopez MD 12/23/22 Final result Normal [facility] Hemoglobin A1Con 10-28-2022 Glucose [Mass/Vol] 217 mg/dL Normal [facility] Comment on above: Result Comment: The ADA and AACC recommend providing the estimated average glucose result to permit better patient understanding of their HBA1c result. Performed By: #### C P, CDP #### [facility] [address] [place] [address] [place] [address] Heat Regulator: Barak Garcia MD #### GLYHGB #### [facility] [place], [place] [address] Heat Regulator: Dexter Madera MD HbA1c (Bld) [Mass fraction] 9.2 % High 4.0-6.0 [facility] Comment on above: Performed By: #### C P, CDP #### [facility] [address] [place] [address] Heat Regulator: Barak Garcia MD #### GLYHGB #### [place] [address] [place] [address] Heat Regulator: Dexter Madera MD CBC with Diffon 10-27-2022 Abs. Basophil 0.12 k/uL Normal 0.00-0.20 [facility] Comment on above: Performed By: #### C P, CDP #### [facility] [address] [place], [place] 3801683 Heat Regulator: Barak Garcia MD #### GLYHGB #### [address] [address] Heat Regulator: Dexter Madera MD Abs.Imm.Granulocy te 0.03 k/uL Normal 0.00-0.30 [facility] Comment on above: Performed By: #### C P, CDP #### [address] [place] [id number] Heat Regulator: Barak Garcia MD #### GLYHGB #### [address] [phone] Heat Regulator: Dexter Madera MD Abs.Neutrophil (Seg) 7.42 k/uL Normal 1.50-8.10 [facility] Comment on above: Performed By: #### C P, CDP #### [address] [place] [phone] Heat Regulator: Barak Garcia MD #### GLYHGB #### [address] [address] Heat Regulator: Dexter Madera MD Basophils/100 WBC (Bld) 1 % Normal 0-2 [facility] Comment on above: Performed By: #### C P, CDP #### [address] [place], [place] 3835683 Heat Regulator: Barak Garcia MD #### GLYHGB #### [address] [address] Heat Regulator: Dexter Madera MD Eosinophils (Bld) [#/Vol] 0.66 10*3/uL High 0.00-0.44 [facility] Comment on above: Performed By: #### C P, CDP #### [facility] [address] [place] [address] [address] [place] [id number] Heat Regulator: Barak Garcia MD #### GLYHGB #### [address] [address] Heat Regulator: Dexter Madera MD Eosinophils/100 WBC (Bld) 6 % High 1-4 [facility] Comment on above: Performed By: #### C P, CDP #### [facility] [address] [place] [address] Dr. [place] [id number] Heat Regulator: Barak Garcia MD #### GLYHGB #### [address] [address] Heat Regulator: Dexter Madera MD Erythrocyte distribution width (RBC) [Ratio] 13.6 % Normal 11.8-14.4 [facility] Comment on above: Performed By: #### C P, CDP #### [facility] [address] [place] [address] Dr. [place] [phone] Heat Regulator: Barak Garcia MD #### GLYHGB #### [address] [address] Heat Regulator: Dexter Madera MD Hematocrit (Bld) [Volume fraction] 40.6 % Low 40.7-50.3 [facility] Comment on above: Performed By: #### C P, CDP #### [facility] [address] [place] [address] Dr[address] [place] [phone] Heat Regulator: Barak Garcia MD #### GLYHGB #### [address] [address] Heat Regulator: Dexter Madera MD Hemoglobin (Bld) [Mass/Vol] 13.6 g/dL Normal 13.0-17.0 [facility] Comment on above: Performed By: #### C P, CDP #### [facility] [address] [place], [place] [id number] Heat Regulator: Barak Garcia MD #### GLYHGB #### [address] [id number] Heat Regulator: Dexter Madera MD Immature granulocytes/100 WBC (Bld) 0 % Normal 0 [facility] Comment on above: Performed By: #### C P, CDP #### [address] [place] [id number] Heat Regulator: Barak Garcia MD #### GLYHGB #### [address] [address] Heat Regulator: Dexter Madera MD Lymphocytes (Bld) [#/Vol] 2.09 10*3/uL Normal 1.10-3.70 [facility] Comment on above: Performed By: #### C P, CDP #### [address] [place], [place] 9334983 Heat Regulator: Barak Garcia MD #### GLYHGB #### [address] [address] Heat Regulator: Dexter Madera MD Lymphocytes/100 WBC (Bld) 19 % Low 24-43 [facility] Comment on above: Performed By: #### C P, CDP #### [address] [place], [place] 7315283 Heat Regulator: Barak Garcia MD #### GLYHGB #### [address] [address] Heat Regulator: Dexter Madera MD MCH (RBC) [Entitic mass] 29.4 pg Normal 25.2-33.5 [facility] Comment on above: Performed By: #### C P, CDP #### [address] [place] [address] Heat Regulator: Barak Garcia MD #### GLYHGB #### [address] [phone] Heat Regulator: Dexter Madera MD MCHC (RBC) [Mass/Vol] 33.5 g/dL Normal 28.4-34.8 [facility] Comment on above: Performed By: #### C P, CDP #### [address] [place] [address] Heat Regulator: Barak Garcia MD #### GLYHGB #### [place] [id number] Heat Regulator: Dexter Madera MD MCV (RBC) [Entitic vol] 87.9 fL Normal 82.6-102.9 [facility] Comment on above: Performed By: #### C P, CDP #### [address] [place] [id number] Heat Regulator: Barak Garcia MD #### GLYHGB #### [place] [id number] Heat Regulator: Dexter Madera MD Monocytes (Bld) [#/Vol] 0.86 10*3/uL Normal 0.10-1.20 [facility] Comment on above: Performed By: #### C P, CDP #### [address] [place] [address] Heat Regulator: Barak Garcia MD #### GLYHGB #### [place] [address] [place], [place] 7439808 Heat Regulator: Dexter Madera MD Monocytes/100 WBC (Bld) 8 % Normal 3-12 [facility] Comment on above: Performed By: #### C P, CDP #### [facility] [address] [place], [place] 2001883 Heat Regulator: Barak Garcia MD #### GLYHGB #### [address] [address] Heat Regulator: Dexter Madera MD Neutrophil (Seg) 66 % High 36-65 [facility] Comment on above: Performed By: #### C P, CDP #### [facility] [address] [place], [place] 4060183 Heat Regulator: Barak Garcia MD #### GLYHGB #### [address] [address] Heat Regulator: Dexter Madera MD NRBC Automated 0.0 per 100 WBC Normal 0.0 [facility] Comment on above: Performed By: #### C P, CDP #### [facility] [address] [place], [place] 5328683 Heat Regulator: Barak Garcia MD #### GLYHGB #### [address] [address] Heat Regulator: Dexter Madera MD Platelet mean volume (Bld) [Entitic vol] 9.4 fL Normal 8.1-13.5 [facility] Comment on above: Performed By: #### C P, CDP #### [facility] [address] [place], [place] 7888483 Heat Regulator: Barak Garcia MD #### GLYHGB #### [address] [address] Heat Regulator: Dexter Madera MD Platelets (Bld) [#/Vol] 389 10*3/uL Normal 138-453 [facility] Comment on above: Performed By: #### C P, CDP #### [facility] [address] [place], [place] 2674483 Heat Regulator: Barak Garcia MD #### GLYHGB #### [place] [address] [place], [place] 3788508 Heat Regulator: Dexter Madera MD RBC (Bld) [#/Vol] 4.62 10*6/uL Normal 4.21-5.77 [facility] Comment on above: Performed By: #### C P, CDP #### [facility] [address] [place], [place] 8801383 Heat Regulator: Barak Garcia MD #### GLYHGB #### [place] [address] [place], [place] 9134408 Heat Regulator: Dexter Madera MD WBC (Bld) [#/Vol] 11.2 10*3/uL Normal 3.5-11.3 [facility] Comment on above: Performed By: #### C P, CDP #### [facility] [address] [place], [place] 7085683 Heat Regulator: Barak Garcia MD #### GLYHGB #### [address] [address] Heat Regulator: Dexter Madera MD Comp Metabolic Profon 2022 Albumin [Mass/Vol] 4.5 g/dL Normal 3.5-5.2 [facility] Comment on above: Performed By: #### C P, CDP #### [facility] [address] [place], [place] [id number] Heat Regulator: Barak Garcia MD #### GLYHGB #### [place] [address] [place], [place] 5366908 Heat Regulator: Dexter Madera MD Albumin/Glob Ratio 1.5 Normal 1.0-2.5 [facility] Comment on above: Performed By: #### C P, CDP #### [facility] [address] [place], [place] 4227883 Heat Regulator: Barak Garcia MD #### GLYHGB #### [facility] [address] [place] [address] Heat Regulator: Dexter Madera MD Alkaline Phos 71 U/L Normal 40-129 [facility] Comment on above: Performed By: #### C P, CDP #### [facility] [address] [place] [address] Heat Regulator: Barak Garcia MD #### GLYHGB #### [place] [address] [place] [address] Heat Regulator: Dexter Madera MD ALT [Catalytic activity/Vol] 30 U/L Normal 5-41 [facility] Comment on above: Performed By: #### C P, CDP #### [facility] [address] [place] [address] Heat Regulator: Barak Garcia MD #### GLYHGB #### [address] [address] Heat Regulator: Dexter Madera MD Anion gap [Moles/Vol] 12 mmol/L Normal 9-17 [facility] Comment on above: Performed By: #### C P, CDP #### [facility] [address] [place] [address] Heat Regulator: Barak Garcia MD #### GLYHGB #### [place] [address] [place] [address] Heat Regulator: Dexter Madera MD AST [Catalytic activity/Vol] 22 U/L Normal <40 [facility] Comment on above: Performed By: #### C P, CDP #### [facility] [address] [place], [place] 1152683 Heat Regulator: Barak Garcia MD #### GLYHGB #### [facility] [address] [place], [place] 4885208 Heat Regulator: Dexter Madera MD Bilirubin [Mass/Vol] 0.3 mg/dL Normal 0.3-1.2 [facility] Comment on above: Performed By: #### C P, CDP #### [facility] [address] [place] [address] Dr[address] [place], [place] 2990383 Heat Regulator: Barak Garcia MD #### GLYHGB #### [address] [id number] Heat Regulator: Dexter Madera MD BUN/CRE Ratio 23 High 9-20 [facility] Comment on above: Performed By: #### C P, CDP #### [address] [place] [id number] Heat Regulator: Barak Garcia MD #### GLYHGB #### [address] [address] Heat Regulator: Dexter Madera MD Calcium [Mass/Vol] 9.9 mg/dL Normal 8.6-10.4 [facility] Comment on above: Performed By: #### C P, CDP #### [address] [place], [place] 5782683 Heat Regulator: Barak Garcia MD #### GLYHGB #### [address] [address] Heat Regulator: Dexter Madera MD Chloride [Moles/Vol] 103 mmol/L Normal 98-107 [facility] Comment on above: Performed By: #### C P, CDP #### [address] [place], [place] [id number] Heat Regulator: Barak Garcia MD #### GLYHGB #### [address] [place] [address] Heat Regulator: Dexter Madera MD CO2 [Moles/Vol] 26 mmol/L Normal 20-31 [facility] Comment on above: Performed By: #### C P, CDP #### [facility] [address] [place], [place] [id number] Heat Regulator: Barak Garcia MD #### GLYHGB #### [facility] [address] [place] [address] Heat Regulator: Dexter Madera MD Creatinine [Mass/Vol] 0.8 mg/dL Normal 0.7-1.2 [facility] Comment on above: Performed By: #### C P, CDP #### [address] [place] [address] Heat Regulator: Barak Garcia MD #### GLYHGB #### [address] [id number] Heat Regulator: Dexter Madera MD GFR/1.73 sq M.predicted among non-blacks MDRD (S/P/Bld) [Vol rate/Area] mL/min/{1.73_m2} Normal >60 [facility] Comment on above: Result Comment: These [...] Performed By: #### C P, CDP #### [facility] [address] [place], [place] [id number] Heat Regulator: Barak Garcia MD #### GLYHGB #### [facility] [address] [place], [place] [phone] Heat Regulator: Dexter Madera MD Glucose [Mass/Vol] 217 mg/dL High 70-99 [facility] Comment on above: Performed By: #### C P, CDP #### [facility] [address] [place], [place] [id number] Heat Regulator: Barak Garcia MD #### GLYHGB #### [address] [place], [place] [phone] Heat Regulator: Dexter Madera MD Potassium [Moles/Vol] 4.2 mmol/L Normal 3.7-5.3 [facility] Comment on above: Performed By: #### C P, CDP #### [facility] [address] [place] [address] Heat Regulator: Barak Garcia MD #### GLYHGB #### [address] [place], [place] [phone] Heat Regulator: Dexter Madera MD Protein [Mass/Vol] 7.5 g/dL Normal 6.4-8.3 [facility] Comment on above: Performed By: #### C P, CDP #### [facility] [address] [place], [place] [phone] Heat Regulator: Barak Garcia MD #### GLYHGB #### [address] [place] [address] Heat Regulator: Dexter Madera MD Sodium [Moles/Vol] 141 mmol/L Normal 135-144 [facility] Comment on above: Performed By: #### C P, CDP #### [facility] [address] [place], [place] [phone] Heat Regulator: Barak Garcia MD #### GLYHGB #### [address] [place] [address] Heat Regulator: Dexter Madera MD Urea nitrogen [Mass/Vol] 18 mg/dL Normal 8-23 [facility] Comment on above: Performed By: #### C P, CDP #### [facility] [address] [place] [address] Heat Regulator: Barak Garcia MD #### GLYHGB #### [facility] [address] [place] [address] Heat Regulator: Dexter Madera MD Lipid Profileon 10-27-2022 Cholesterol [Mass/Vol] 151 mg/dL Normal <200 [facility] Comment on above: Result Comment: Cholesterol Guidelines: <200 Desirable 200-240 Borderline >240 Undesirable Performed By: #### L IPR ####[address] [address])[phone] Director: Dexter Madera MD Cholesterol in HDL [Mass/Vol] 35 mg/dL Low >40 [facility] Comment on above: Result Comment: HDL Guidelines: <40 Undesirable 40-59 Borderline >59 Desirable Performed By: #### L IPR ####[address] [place], [place] [address])[phone] Director: Dexter Madera MD Cholesterol in LDL [Mass/Vol] 87 mg/dL Normal 0-130 [facility] Comment on above: Result Comment: LDL Guidelines: <100 Desirable 100-129 Near to/above Desirable 130-159 Borderline >159 Undesirable Direct (measured) LDL and calculated LDL are not interchangeable tests. Performed By: #### L IPR ####[address] [address])[phone] Director: Dexter Madera MD Cholesterol.total /Cholesterol in HDL [Mass ratio] 4.3 {ratio} Normal <5 [facility] Comment on above: Performed By: #### L IPR ####[facility] [place] [address] Lab Director: Dexter Madera MD Triglyceride [Mass/Vol] 143 mg/dL Normal <150 [facility] Comment on above: Result Comment: Triglyceride Guidelines: <150 Desirable 150-199 Borderline 200-499 High >499 Very high Based on AHA Guidelines for fasting triglyceride, November 2011. Performed By: #### L IPR ####[facility] [address] [place] [address] Lab Director: Dexter Madera MD Microalb.,Random Uron 2022 Creatinine [Mass/Vol] 116.4 mg/dL Normal 39.0-259.0 [facility] Comment on above: Performed By: #### U RNMAB ####[facility] [address] [place] [address] Lab Director: Dexter Madera MD Microalb/Creat Ratio 60 mcg/mg creat High <17 [facility] Comment on above: Performed By: #### U RNMAB ####[facility] [address] [place] [address] Lab Director: Dexter Madera MD Microalbumin conc. 70 mg/L High <21 [facility] Comment on above: Performed By: #### U RNMAB ####[facility] [address] [place] [address] Lab Director: Dexter Madera MD Surgical Pathologyon 023 Surgical Pathology (NOTE) Path Number: [id number] -- Diagnosis -- A. ABNORMAL SKIN GROWTH, [...] Microscopic Description Microscopic examination performed. Processing Lab: [address] [phone] Interpretation Performed at [address] [phone] SURGICAL PATHOLOGY CONSULTATION Patient Name: KWABENA MESSER Med Rec: [id number] [facility] Stepsss CONSULTING PATHOLOGISTS [facility] [place] ANATOMIC PATHOLOGY [address] [place] [address]. [place], [place] [address] Normal [facility] CBC with Auto Differentialon 04-29-2022 Absolute Eos # 0.45 High [facility] Absolute Immature Granulocyte 0.05 [facility] Absolute Lymph # 1.93 [facility] Absolute [place] # 0.85 [facility] Basophils (Bld) [#/Vol] 0.13 10*3/uL [facility] Basophils/100 WBC (Bld) 1 % 0 - 2 % [facility] Eosinophils/100 WBC (Bld) 4 % 1 - 4 % [facility] Hematocrit (Bld) [Volume fraction] 42.9 % 40.7 - 50.3 % [facility] Hemoglobin (Bld) [Mass/Vol] 14.6 g/dL 13.0 - 17.0 g/dL [facility] Immature granulocytes/100 WBC (Bld) 1 % High 0 [facility] Interpretation and review of laboratory results Abnormal [facility] Lymphocytes/100 WBC (Bld) 19 % Low 24 - 43 % [facility] MCH (RBC) [Entitic mass] 29.9 pg 25.2 - 33.5 pg [facility] MCHC (RBC) [Mass/Vol] 34.0 g/dL 28.4 - 34.8 g/dL [facility] MCV (RBC) [Entitic vol] 87.9 fL 82.6 - 102.9 fL [facility] Monocytes/100 WBC (Bld) 8 % 3 - 12 % [facility] NRBC Automated 0.0 0.0 per 100 WBC [facility] Platelet distribution width (Bld) [Ratio] 13.7 % 11.8 - 14.4 % [facility] Platelet mean volume (Bld) [Entitic vol] 9.4 fL 8.1 - 13.5 fL [facility] Platelets (Bld) [#/Vol] 358 10*3/uL [facility] RBC (Bld) [#/Vol] 4.88 10*6/uL 4.21 - 5.7 7 m/uL [facility] Segmented neutrophils/100 WBC (Bld) 67 % High 36 - 65 % [facility] Segs Absolute 6.89 [facility] WBC (Bld) [#/Vol] 10.3 10*3/uL [facility] Comprehensive Metabolic Pane jesus 04-29-2022 Albumin [Mass/Vol] 4 g/dL 3.5 - 5.2 g/dL [facility] Albumin/Globulin [Mass ratio] 1.1 {ratio} 1.0 - 2.5 [facility] ALP [Catalytic activity/Vol] 75 U/L 40 - 129 U/L [facility] ALT [Catalytic activity/Vol] 33 U/L 5 - 41 U/L [facility] Anion gap [Moles/Vol] 8 mmol/L Low 9 - 17 mmol/L [facility] AST [Catalytic activity/Vol] 29 U/L NINF - 40 U/L [facility] Bilirubin [Mass/Vol] 0.4 mg/dL 0.3 - 1.2 mg/dL [facility] Calcium [Mass/Vol] 9.7 mg/dL 8.6 - 10.4 mg/dL [facility] Chloride [Moles/Vol] 100 mmol/L 98 - 107 mmol/L [facility] CO2 [Moles/Vol] 30 mmol/L 20 - 31 mmol/L [facility] Creatinine [Mass/Vol] 0.79 mg/dL 0.70 - 1.20 mg/dL [facility] GFR/1.73 sq M.predicted MDRD (S/P/Bld) [Vol rate/Area] - PINF [facility] Comment on above: These results are [...] 191 mg/dL High 70 - 99 mg/dL [facility] Interpretation and review of laboratory results Abnormal [facility] Potassium [Moles/Vol] 4.2 mmol/L 3.7 - 5.3 mmol/L [facility] Protein [Mass/Vol] 7.5 g/dL 6.4 - 8.3 g/dL [facility] Sodium [Moles/Vol] 138 mmol/L 135 - 144 mmol/L [facility] Urea nitrogen [Mass/Vol] 14 mg/dL 8 - 23 mg/dL [facility] Urea nitrogen/Creatini ne (Bld) [Mass ratio] 18 9 - 20 [facility] Lipid Panelon 04-29-2022 Cholesterol [Mass/Vol] 167 mg/dL NINF - 200 mg/dL [facility] Comment on above: Cholesterol Guidelines: <200 Desirable 200-240 Borderline >240 Undesirable Cholesterol in HDL [Mass/Vol] 39 mg/dL Low 40 - PINF mg/dL [facility] Comment on above: HDL Guidelines: <40 Undesirable 40-59 Borderline >59 Desirable Cholesterol in LDL [Mass/Vol] 97 mg/dL 0 - 130 mg/dL [facility] Comment on above: LDL Guidelines: <100 Desirable 100-129 Near to/above Desirable 130-159 Borderline >159 Undesirable Direct (measured) LDL and calculated LDL are not interchangeable tests. Cholesterol.total /Cholesterol in HDL [Mass ratio] 4.3 {ratio} NINF - 5 [facility] Interpretation and review of laboratory results Abnormal [facility] Triglyceride [Mass/Vol] 156 mg/dL High NINF - 150 mg/dL [facility] Comment on above: Triglyceride Guidelines: <150 Desirable 150-199 Borderline 200-499 High >499 Very high Based on AHA Guidelines for fasting triglyceride, November 2011. [facility] TSHon 04-29-2022 TSH Qn 3.05 m[IU]/L [facility] Basic Metabolic Panelon 05-3 Anion gap [Moles/Vol] 10 mmol/L 9 - 17 mmol/L [facility] Calcium [Mass/Vol] 9.7 mg/dL 8.6 - 10.4 mg/dL [facility] Chloride [Moles/Vol] 102 mmol/L 98 - 107 mmol/L [facility] CO2 [Moles/Vol] 27 mmol/L 20 - 31 mmol/L [facility] Creatinine [Mass/Vol] 0.62 mg/dL Low 0.70 - 1.20 mg/dL [facility] GFR >60 >60 mL/min [facility] GFR Non- >60 >60 mL/min [facility] Glucose [Mass/Vol] 192 mg/dL High 70 - 99 mg/dL [facility] Interpretation and review of laboratory results Abnormal [facility] Potassium [Moles/Vol] 4.0 mmol/L 3.7 - 5.3 mmol/L [facility] Sodium [Moles/Vol] 139 mmol/L 135 - 144 mmol/L [facility] Urea nitrogen (BldV) [Mass/Vol] 11 mg/dL 8 - 23 mg/dL [facility] Urea nitrogen/Creatini ne (Bld) [Mass ratio] 18 [facility] CBC with Auto Differentialon 07-21-2021 Absolute Eos # 0.42 [place] [facility] Absolute Immature Granulocyte 0.04 [facility] Absolute Lymph # 2.29 [facility] Absolute [place] # 0.86 [facility] Basophils (Bld) [#/Vol] 0.11 10*3/uL [facility] Basophils/100 WBC (Bld) 1 % 0 - 2 % [facility] Eosinophils/100 WBC (Bld) 4 % 1 - 4 % [facility] Hematocrit (Bld) [Volume fraction] 43.6 % 40.7 - 50.3 % [facility] Hemoglobin.gastro intestinal spec 1 Ql (Stl) 14.3 g/dL 13.0 - 17.0 g/dL [facility] Immature granulocytes/100 WBC (Bld) 0 % 0 [facility] Interpretation and review of laboratory results Abnormal [facility] Lymphocytes/100 WBC (Bld) 21 % Low 24 - 43 % [facility] MCH (RBC) [Entitic mass] 29.2 pg 25.2 - 33.5 pg [facility] MCHC (RBC) [Mass/Vol] 32.8 g/dL 28.4 - 34.8 g/dL [facility] MCV (RBC) [Entitic vol] 89.0 fL 82.6 - 102.9 fL [facility] Monocytes/100 WBC (Bld) 8 % 3 - 12 % [facility] NRBC Automated 0.0 0.0 per 100 WBC [facility] Platelet distribution width (Bld) [Ratio] 13.7 % 11.8 - 14.4 % [facility] Platelet mean volume (Bld) [Entitic vol] 9.6 fL 8.1 - 13.5 fL [facility] Platelets (Bld) [#/Vol] 392 10*3/uL [facility] RBC (Bld) [#/Vol] 4.90 10*6/uL 4.21 - 5.7 7 m/uL [facility] Segmented neutrophils/100 WBC (Bld) 66 % High 36 - 65 % [facility] Segs Absolute 7.34 [facility] WBC (Bld) [#/Vol] 11.1 10*3/uL LYNN Polanco [facility] Laboratory - Chemistry and C hemistry - challengeon 07-21-2021 GFR/1.73 sq M.predicted MDRD (S/P/Bld) [Vol rate/Area] [facility] Comment on above: Average GFR for 60-6 9 years old: 85 mL/min/1.73sq m Chronic Kidney Disease: <60 mL/min/1.73sq m Kidney failure: <15 mL/min/1.73sq m eGFR calculated using average adult body mass. Additional eGFR calculator available at: http://www.[employer].Ligandal/multiple_crcl_2012.htm Stage 1: Some kidney damage normal GFR Stage 2: Mild kidney damage GFR 60-89 Stage 3: Moderate kidney damage GFR 30-59 Stage 4: Severe kidney damage GFR 15-29 Stage 5: Severe kidney damage GFR <15 ESRD - chronic treatment by dialysis or transplant CBC with Auto Differentialon 06-01-2021 Absolute Eos # 0.62 High [facility] th Absolute Immature Granulocyte 0.05 [facility] Absolute Lymph # 2.36 [facility] alth Absolute [place] # 0.78 [facility] Basophils (Bld) [#/Vol] 0.12 10*3/uL [facility] Basophils/100 WBC (Bld) 1 % 0 - 2 % [facility] Eosinophils/100 WBC (Bld) 6 % High 1 - 4 % [facility] Hematocrit (Bld) [Volume fraction] 44.6 % 40.7 - 50.3 % [facility] Hemoglobin.gastro intestinal spec 1 Ql (Stl) 14.4 g/dL 13.0 - 17.0 g/dL [facility] Immature granulocytes/100 WBC (Bld) 1 % High 0 [facility] Interpretation and review of laboratory results Abnormal [facility] Lymphocytes/100 WBC (Bld) 24 % 24 - 43 % [facility] MCH (RBC) [Entitic mass] 28.7 pg 25.2 - 33.5 pg [facility] MCHC (RBC) [Mass/Vol] 32.3 g/dL 28.4 - 34.8 g/dL [facility] MCV (RBC) [Entitic vol] 89.0 fL 82.6 - 102.9 fL [facility] Monocytes/100 WBC (Bld) 8 % 3 - 12 % [facility] NRBC Automated 0.0 0.0 per 100 WBC [facility] Platelet distribution width (Bld) [Ratio] 13.9 % 11.8 - 14.4 % [facility] Platelet mean volume (Bld) [Entitic vol] 9.3 fL 8.1 - 13.5 fL [facility] Platelets (Bld) [#/Vol] 378 10*3/uL [facility] RBC (Bld) [#/Vol] 5.01 10*6/uL 4.21 - 5.7 7 m/uL [facility] Segmented neutrophils/100 WBC (Bld) 60 % 36 - 65 % [facility] Segs Absolute 5.92 [facility] W[facility] (Bld) [#/Vol] 9.9 10*3/uL [facility] Comprehensive Metabolic Pane jesus 06-01-2021 Albumin [Mass/Vol] 4.2 g/dL 3.5 - 5.2 g/dL [facility] Albumin/Globulin [Mass ratio] 1.4 {ratio} [facility] ALP (Bld) [Catalytic activity/Vol] 75 U/L 40 - 129 U/L [facility] ALT [Catalytic activity/Vol] 43 U/L High 5 - 41 U/L [facility] Anion gap [Moles/Vol] 13 mmol/L 9 - 17 mmol/L [facility] AST [Catalytic activity/Vol] 32 U/L <40 [facility] Bilirubin [Mass/Vol] 0.45 mg/dL 0.3 - 1.2 mg/dL [facility] Calcium [Mass/Vol] 9.8 mg/dL 8.6 - 10.4 mg/dL [facility] Chloride [Moles/Vol] 101 mmol/L 98 - 107 mmol/L [facility] CO2 [Moles/Vol] 24 mmol/L 20 - 31 mmol/L [facility] Creatinine [Mass/Vol] 0.79 mg/dL 0.70 - 1.20 mg/dL [facility] Free PSA/Total PSA [Mass fraction] 7.3 g/dL 6.4 - 8.3 g/dL [facility] GFR >60 >60 mL/min [facility] GFR Non- >60 >60 mL/min [facility] Glucose [Mass/Vol] 244 mg/dL High 70 - 99 mg/dL [facility] Interpretation and review of laboratory results Abnormal [facility] Potassium [Moles/Vol] 3.8 mmol/L 3.7 - 5.3 mmol/L [facility] Sodium [Moles/Vol] 138 mmol/L 135 - 144 mmol/L [facility] Urea nitrogen (BldV) [Mass/Vol] 13 mg/dL 8 - 23 mg/dL [facility] Urea nitrogen/Creatini ne (Bld) [Mass ratio] 16 [facility] Laboratory - Chemistry and C hemistry - challengeon 06-01-2021 GFR/1.73 sq M.predicted MDRD (S/P/Bld) [Vol rate/Area] [facility] Comment on above: Average GFR for 60-6 9 years old: 85 mL/min/1.73sq m Chronic Kidney Disease: <60 mL/min/1.73sq m Kidney failure: <15 mL/min/1.73sq m eGFR calculated using average adult body mass. Additional eGFR calculator available at: http://www.[employer]/multiple_crcl_2012.htm Stage 1: Some kidney damage normal GFR Stage 2: Mild kidney damage GFR 60-89 Stage 3: Moderate kidney damage GFR 30-59 Stage 4: Severe kidney damage GFR 15-29 Stage 5: Severe kidney damage GFR <15 ESRD - chronic treatment by dialysis or transplant Lipid Panelon 06-01-2021 Cholesterol [Mass/Vol] 148 mg/dL <200 [facility] Comment on above: Cholesterol Guidelines: <200 Desirable 200-240 Borderline >240 Undesirable Cholesterol in HDL [Mass/Vol] 35 mg/dL Low >40 [facility] Comment on above: HDL Guidelines: <40 Undesirable 40-59 Borderline >59 Desirable Cholesterol in LDL [Mass/Vol] 80 mg/dL 0 - 130 mg/dL [facility] Comment on above: LDL Guidelines: <100 Desirable 100-129 Near to/above Desirable 130-159 Borderline >159 Undesirable Direct (measured) LDL and calculated LDL are not interchangeable tests. Cholesterol.total /Cholesterol in HDL [Mass ratio] 4.2 {ratio} <5 [facility] Interpretation and review of laboratory results Abnormal [facility] Triglyceride [Mass/Vol] 164 mg/dL High <150 [facility] Comment on above: Triglyceride Guidelines: <150 Desirable 150-199 Borderline 200-499 High >499 Very high Based on AHA Guidelines for fasting triglyceride, November 2011. [facility] PSA Screeningon 06-01-2021 [facility] CBC Auto Differentialon 12-22 Basophils (Bld) [#/Vol] 0.14 10*3/uL [place] Basophils/100 WBC (Bld) 1 % 0 - 2 % [place] Differential Type NOT REPORTED [place] Eosinophils (Bld) [#/Vol] 0.56 10*3/uL [place] Eosinophils/100 WBC (Bld) 5 % High 1 - 4 % [place] Erythrocyte distribution width (RBC) [Ratio] 13.9 % 11.8 - 14.4 % [place] Hematocrit (Bld) [Volume fraction] 43.8 % 40.7 - 50.3 % [place] Hemoglobin (Bld) [Mass/Vol] 13.9 g/dL 13 - 17 g/dL [place] Immature granulocytes (Bld) [#/Vol] 0.06 10*3/uL [place] Immature granulocytes (Bld) [#/Vol] 1 % High 0 [place] Interpretation and review of laboratory results Abnormal [place] Lymphocytes (Bld) [#/Vol] 2.18 10*3/uL [place] Lymphocytes/100 WBC (Bld) 19 % Low 24 - 43 % [place] MCH (RBC) [Entitic mass] 28.7 pg 25.2 - 33.5 pg [place] MCHC (RBC) [Mass/Vol] 31.7 g/dL 28.4 - 34.8 g/dL [place] MCV (RBC) [Entitic vol] 90.5 fL 82.6 - 102.9 fL [place] Monocytes (Bld) [#/Vol] 0.87 10*3/uL [place] Monocytes/100 WBC (Bld) 8 % 3 - 12 % [place] Platelet mean volume (Bld) [Entitic vol] 8.9 fL 8.1 - 13.5 fL [place] Platelets (Bld) [#/Vol] NOT REPORTED [place] Platelets (Bld) [#/Vol] 376 10*3/uL [place] RBC (Bld) [#/Vol] 4.84 10*6/uL 4.21 - 5.7 7 m/uL [place] RBC morphology finding Nom (Bld) NOT REPORTED [place] Segmented neutrophils/100 WBC (Bld) 66 % High 36 - 65 % [place] Segs Absolute 7.52 [place] WBC (Bld) [#/Vol] 0.0 10*3/uL 0.0 per 10 0 WBC [place] WBC (Bld) [#/Vol] 11.3 10*3/uL [place] WBC Morphology NOT REPORTED [place] Comprehensive Metabolic Pane jesus 01-08-2020 Albumin [Mass/Vol] 4.4 g/dL 3.5 - 5.2 g/dL [place] Albumin/Globulin [Mass ratio] 1.4 {ratio} [place] ALP [Catalytic activity/Vol] 63 U/L 40 - 129 U/L [place] ALT [Catalytic activity/Vol] 35 U/L 5 - 41 U/L [place] Anion gap [Moles/Vol] 14 mmol/L 9 - 17 mmol/L [place] AST [Catalytic activity/Vol] 31 U/L <40 [place] Bilirubin Ql (U) 0.30 mg/dL 0.3 - 1.2 mg/dL [place] Bun/Cre Ratio 20 [place] Calcium [Mass/Vol] 10.0 mg/dL 8.6 - 10.4 mg/dL [place] Chloride [Moles/Vol] 99 mmol/L 98 - 107 mmol/L [place] CO2 [Moles/Vol] 24 mmol/L 20 - 31 mmol/L [place] Creatinine [Mass/Vol] 0.71 mg/dL 0.7 - 1.2 mg/dL [place] GFR >60 >60 mL/min [place] GFR Non- >60 >60 mL/min [place] Glucose [Mass/Vol] 225 mg/dL High 70 - 99 mg/dL [place] Interpretation and review of laboratory results Abnormal [place] Potassium [Moles/Vol] 4.0 mmol/L 3.7 - 5.3 mmol/L [place] Protein [Mass/Vol] 7.5 g/dL 6.4 - 8.3 g/dL [place] Sodium [Moles/Vol] 137 mmol/L 135 - 144 mmol/L [place] Urea nitrogen [Mass/Vol] 14 mg/dL 8 - 23 mg/dL [place] Lipid Panelon 01-08-2020 Cholesterol [Mass/Vol] 144 mg/dL <200 [place] Comment on above: Cholesterol Guidelines: <200 Desirable 200-240 Borderline >240 Undesirable Cholesterol in HDL [Mass/Vol] 34 mg/dL Low >40 [place] Comment on above: HDL Guidelines: <40 Undesirable 40-59 Borderline >59 Desirable Cholesterol in LDL [Mass/Vol] 84 mg/dL 0 - 130 mg/dL [place] Comment on above: LDL Guidelines: <100 Desirable 100-129 Near to/above Desirable 130-159 Borderline >159 Undesirable Direct (measured) LDL and calculated LDL are not interchangeable tests. Cholesterol in VLDL [Mass/Vol] NOT REPORTED 1 - 30 mg/dL [place] Cholesterol.total /Cholesterol in HDL [Mass ratio] 4.2 {ratio} <5 [place] Interpretation and review of laboratory results Abnormal [place] Triglyceride [Mass/Vol] 130 mg/dL <150 [place] Comment on above: Triglyceride Guidelines: <150 Desirable 150-199 Borderline 200-499 High >499 Very high Based on AHA Guidelines for fasting triglyceride, November 2011. Metabolic Panelon 01-08-2020 GFR/1.73 sq M predicted among non-blacks MDRD (S/P/Bld) [Vol rate/Area] [place] Comment on above: Stage 1: Some [...] body mass. Additional eGFR calculator available at: http://www.[employer].Ligandal/multiple_crcl_2012.htm Microalbumin, Uron 0 Albumin/Creatinin e DL <= 20 mg/L (24H U) [Mass ratio] 53 mg/L High <21 [place] Albumin/Creatinin e DL <= 20 mg/L (U) [Ratio] 28 High <17 mcg/mg creat [place] Creatinine [Mass/Vol] 189.9 mg/dL 39 - 259 mg/dL [place] Interpretation and review of laboratory results Abnormal [place] Cult,Aerobe/Anaerobeon 01-14 Cult,Aerobe/Anaer obe Specimen Description [...] Trimethoprim/Sulfa <=20 SUSCEPTIBLE Piperacillin/Tazobactam <=4 SUSCEPTIBLE Normal [facility] Comment on above: Performed By: #### A ANC #### [facility] [address] [place] [address] Heat Regulator: Dexter Madera MD [facility] [address] [place] [address] Heat Regulator: Morgan Andino MD CBC auto differentialon 12-23 Basophils (Bld) [#/Vol] 0.10 10*3/uL [place] Basophils/100 WBC (Bld) 1 % 0 - 2 % [place] Differential Type YES [place] Eosinophils (Bld) [#/Vol] 0.10 10*3/uL [place] Eosinophils/100 WBC (Bld) 1 % 0 - 5 % [place] Erythrocyte distribution width (RBC) [Ratio] 13.9 % 12.1 - 15.2 % [place] Hematocrit (Bld) [Volume fraction] 40.3 % Low 41 - 53 % [place] Hemoglobin (Bld) [Mass/Vol] 13.5 g/dL 13.5 - 17.5 g/dL [place] Interpretation and review of laboratory results Abnormal [place] Lymphocytes (Bld) [#/Vol] 1.40 10*3/uL [place] Lymphocytes/100 WBC (Bld) 11 % Low 13 - 44 % [place] MCH (RBC) [Entitic mass] 28.9 pg 26 - 34 pg [place] MCHC (RBC) [Mass/Vol] 33.5 g/dL 31 - 37 g/dL [place] MCV (RBC) [Entitic vol] 86.1 fL 80 - 100 fL [place] Monocytes (Bld) [#/Vol] 1.10 10*3/uL [place] Monocytes/100 WBC (Bld) 9 % 5 - 9 % [place] Platelet mean volume (Bld) [Entitic vol] NOT REPORTED 6 - 12 fL [place] Platelets (Bld) [#/Vol] 317 10*3/uL [place] Platelets (Bld) [#/Vol] NOT REPORTED [place] RBC (Bld) [#/Vol] 4.68 10*6/uL 4.5 - 5.9 m/uL [place] RBC morphology finding Nom (Bld) NOT REPORTED [place] Segmented neutrophils/100 WBC (Bld) 78 % High 39 - 75 % [place] Segs Absolute 9.70 High [place] WBC (Bld) [#/Vol] NOT REPORTED per 100 WBC [place] WBC (Bld) [#/Vol] 12.3 10*3/uL [place] WBC Morphology NOT REPORTED [place] CBC with Diffon 01-12-2019 Abs. Basophil 0.10 k/uL Normal 0.0-0.2 [facility] Comment on above: Performed By: #### C DP #### [facility] [address] [place] [address] Heat Regulator: Morgan Andino MD Abs.Neutrophil (Seg) 9.70 k/uL High 2.1-6.5 [facility] Comment on above: Performed By: #### C DP #### [facility] [address] [place] [address] Heat Regulator: Morgan Andino MD Auto Diff Performed YES Normal [facility] Comment on above: Performed By: #### C DP #### [facility] [address] [place] [address] Heat Regulator: Morgan Andino MD Basophils/100 WBC (Bld) 1 % Normal 0-2 [facility] Comment on above: Performed By: #### C DP #### [facility] [address] [place] [address] Heat Regulator: Morgan Andino MD Eosinophils (Bld) [#/Vol] 0.10 10*3/uL Normal 0.0-0.4 [facility] Comment on above: Performed By: #### C DP #### [facility] [address] [place], [place] [id number] Heat Regulator: Morgan Andino MD Eosinophils/100 WBC (Bld) 1 % Normal 0-5 [facility] Comment on above: Performed By: #### C DP #### [facility] [address] [place] [address] Heat Regulator: Morgan Andino MD Erythrocyte distribution width (RBC) [Ratio] 13.9 % Normal 12.1-15.2 [facility] Comment on above: Performed By: #### C DP #### [facility] [address] [place] [address] Heat Regulator: Mogran Andino MD Hematocrit (Bld) [Volume fraction] 40.3 % Low 41-53 [facility] Comment on above: Performed By: #### C DP #### [facility] [address] [place] [address] Heat Regulator: Morgan Andino MD Hemoglobin (Bld) [Mass/Vol] 13.5 g/dL Normal 13.5-17.5 [facility] Comment on above: Performed By: #### C DP #### [facility] [address] [place] [address] Heat Regulator: Morgan Andino MD Lymphocytes (Bld) [#/Vol] 1.40 10*3/uL Normal 1.0-4.8 [facility] Comment on above: Performed By: #### C DP #### [facility] [address] [place] [address] Heat Regulator: Morgan Andino MD Lymphocytes/100 WBC (Bld) 11 % Low 13-44 [facility] Comment on above: Performed By: #### C DP #### [facility] [address] [place] [address] Heat Regulator: Morgan Andino MD MCH (RBC) [Entitic mass] 28.9 pg Normal 26-34 [facility] Comment on above: Performed By: #### C DP #### [facility] [address] [place] [address] Heat Regulator: Morgan Adnino MD MCHC (RBC) [Mass/Vol] 33.5 g/dL Normal 31-37 [facility] Comment on above: Performed By: #### C DP #### [facility] [address] [place] [address] Heat Regulator: Morgan Andino MD MCV (RBC) [Entitic vol] 86.1 fL Normal 80-100 [facility] Comment on above: Performed By: #### C DP #### [facility] [address] [place] [address] (135) Heat Regulator: Morgan Andino MD Monocytes (Bld) [#/Vol] 1.10 10*3/uL High 0.0-1.0 [facility] Comment on above: Performed By: #### C DP #### [facility] [address] [place] [address] ([phone] Heat Regulator: Morgan Andino MD Monocytes/100 WBC (Bld) 9 % Normal 5-9 [facility] Comment on above: Performed By: #### C DP #### [facility] [address] [place] [address] (539) Heat Regulator: Morgan Andino MD Neutrophil (Seg) 78 % High 39-75 [facility] Comment on above: Performed By: #### C DP #### [facility] [address] [place] [address] Heat Regulator: Morgan Andino MD Platelets (Bld) [#/Vol] 317 10*3/uL Normal 140-450 [facility] Comment on above: Performed By: #### C DP #### [facility] [address] [place] [address] (624) Heat Regulator: Morgan Andino MD RBC (Bld) [#/Vol] 4.68 10*6/uL Normal 4.5-5.9 [facility] Comment on above: Performed By: #### C DP #### [facility] [address] [place] [address] ([phone] Heat Regulator: Morgan Andino MD WBC (Bld) [#/Vol] 12.3 10*3/uL High 3.5-11.0 [facility] Comment on above: Performed By: #### C DP #### [facility] [address] [place], [place] [id number] Heat Regulator: Morgan Andino MD Abs.Imm.Granulocy te NOT REPORTED Normal 0.00-0.30 [facility] Comment on above: Performed By: #### C DP #### [facility] [address] [place] [address] Heat Regulator: Morgan Andino MD Immature granulocytes (Bld) [#/Vol] NOT REPORTED Normal 0 [facility] Comment on above: Performed By: #### C DP #### [facility] [address] [place] [address] Heat Regulator: Morgan Andino MD NRBC Automated NOT REPORTED Normal [facility] Comment on above: Performed By: #### C DP #### [facility] [address] [place], [place] [id number] Heat Regulator: Morgan Andino MD Platelet mean volume (Bld) [Entitic vol] NOT REPORTED Normal 6.0-12.0 [facility] Comment on above: Performed By: #### C DP #### [facility] [address] [place], [place] [id number] Heat Regulator: Morgan Andino MD Platelets (Bld) [#/Vol] NOT REPORTED Normal [facility] Comment on above: Performed By: #### C DP #### [facility] [address] [place], [place] [id number] Heat Regulator: Morgan Andino MD RBC morphology finding Nom (Bld) NOT REPORTED Normal [facility] Comment on above: Performed By: #### C DP #### [facility] [address] [place], [place] [phone] Heat Regulator: Morgan Andino MD WBC Morphology NOT REPORTED Normal [facility] Comment on above: Performed By: #### C DP #### [facility] [address] [place] [address] Heat Regulator: Morgan Andino MD Glucose, Whole Bloodon 01-12 Glucose [Mass/Vol] 242 mg/dL High 65 - 99 mg/dL [place] Interpretation and review of laboratory results Abnormal [place] Glucose [Mass/Vol] 261 mg/dL High 65 - 99 mg/dL [place] Interpretation and review of laboratory results Abnormal [place] OPERATIVE REPORTon 9 OPERATIVE REPORT [facility] [address] [place] [address] OPERATIVE REPORT PATIENT NAME: KWABENA MESSER : 1950 MED REC NO: [id number] ROOM: ACCOUNT NO: [id number] ADMIT DATE: 01/12/2019 PROVIDER: Jessica Cooper DATE [...] gluteal/perianal abscess fluid for culture. DRAINS: A [place] with half-inch Nu Gauze. COMPLICATIONS: None. DISPOSITION: [...] for the consultation. JESSICA COOPER [id number] Doc#: [id number] CC: Phil Crenshaw Eric [facility] 01-12-2019 Immature granulocytes (Bld) [#/Vol] NOT REPORTED 0 % [facility] [place], [place] Hemoglobin A1Con 09-25-2017 Glucose mass conc 197 mg/dL Normal [facility] Comment on above: Result Comment: The ADA and AACC recommend providing the estimated average glucose result to permit better patient understanding of their HBA1c result. Performed By: #### C DP, BMP, LIPR, GLYHGB ####[facility] [address] [place] [address] Hemoglobin A1c/Hemoglobin.to shahid mass fraction (Bld) 8.5 % High 4.0-6.0 [facility] Comment on above: Performed By: #### C DP, BMP, LIPR, GLYHGB ####[facility] [address] [place] [address] Basic Metabolic Profon 09-22 (cont.) Normal [facility] Comment on above: Result Comment: Aver age GFR for 60-69 years old: 85 mL/min/1.73sq mChronic Kidney Disease: <60 mL/min/1.73sq mKidney failure: <15 mL/min/1.73sq meGFR calculated using average adult body mass. Additional eGFR calculator available at:http://www.InsideTrack/multiple_crcl_2012.htm Performed By: #### C DP, BMP, LIPR, GLYHGB ####[facility] [address] [place] [address] Anion gap 3 molar conc 14 mmol/L Normal 9-17 [facility] Comment on above: Performed By: #### C DP, BMP, LIPR, GLYHGB ####[facility] [address] [place] [address] Calcium mass conc 9.2 mg/dL Normal 8.6-10.4 [facility] Comment on above: Performed By: #### C DP, BMP, LIPR, GLYHGB ####[facility] [address] [place] [address] Chloride molar conc 99 mmol/L Normal 98-107 [facility] Comment on above: Performed By: #### C DP, BMP, LIPR, GLYHGB ####[facility] [address] [place] [address] CO2 molar conc 25 mmol/L Normal 20-31 [facility] Comment on above: Performed By: #### C DP, BMP, LIPR, GLYHGB ####[facility] [address] [place] [address] Creatinine mass conc 0.58 mg/dL Low 0.70-1.20 [facility] Comment on above: Performed By: #### C DP, BMP, LIPR, GLYHGB ####[place] [address] [place] [address] GFR, Amer >60 Normal >60 [facility] Comment on above: Performed By: #### C DP, BMP, LIPR, GLYHGB ####[facility] [address] [place] [address] GFR,non Amer >60 Normal >60 [facility] Comment on above: Performed By: #### C DP, BMP, LIPR, GLYHGB ####[facility] [address] [place] [address] Glucose mass conc 144 mg/dL High 70-99 [facility] Comment on above: Performed By: #### C DP, BMP, LIPR, GLYHGB ####[facility] [address] [place] [address] Potassium molar conc 3.8 mmol/L Normal 3.7-5.3 [facility] Comment on above: Performed By: #### C DP, BMP, LIPR, GLYHGB ####[facility] [address] [place] [address] Sodium molar conc 138 mmol/L Normal 135-144 [facility] Comment on above: Performed By: #### C DP, BMP, LIPR, GLYHGB ####[address] [address] Urea nitrogen mass conc 12 mg/dL Normal 8-23 [facility] Comment on above: Performed By: #### C DP, BMP, LIPR, GLYHGB ####[address] [address] BUN/CRE Ratio NOT REPORTED Normal 9-20 [facility] Comment on above: Performed By: #### C DP, BMP, LIPR, GLYHGB ####[address] [address] Staging: NOT REPORTED Normal [facility] Comment on above: Performed By: #### C DP, BMP, LIPR, GLYHGB ####[address] [address] CBC with Diffon 09-22-2017 Abs. Basophil 0.14 k/uL Normal 0.00-0.20 [facility] Comment on above: Performed By: #### C DP, BMP, LIPR, GLYHGB ####[address] [address] Abs.Imm.Granulocy te 0.06 k/uL Normal 0.00-0.30 [facility] Comment on above: Performed By: #### C DP, BMP, LIPR, GLYHGB ####[address] [address] Abs.Neutrophil (Seg) 6.21 k/uL Normal 1.50-8.10 [facility] Comment on above: Performed By: #### C DP, BMP, LIPR, GLYHGB ####[address] [address] Basophils/100 WBC Auto (Bld) 1 % Normal 0-2 [facility] Comment on above: Performed By: #### C DP, BMP, LIPR, GLYHGB ####[address] [address] Eosinophils Auto #/vol (Bld) 0.70 10*3/uL High 0.00-0.44 [facility] Comment on above: Performed By: #### C DP, BMP, LIPR, GLYHGB ####[address] [address] Eosinophils/100 WBC Auto (Bld) 7 % High 1-4 [facility] Comment on above: Performed By: #### C DP, BMP, LIPR, GLYHGB ####[address] [address] Erythrocyte distribution width Auto Ratio (RBC) 13.9 % Normal 11.8-14.4 [facility] Comment on above: Performed By: #### C DP, BMP, LIPR, GLYHGB ####[address] [address] Hematocrit Auto Volume Fraction (Bld) 44.5 % Normal 40.7-50.3 [facility] Comment on above: Performed By: #### C DP, BMP, LIPR, GLYHGB ####[address] [address] Hemoglobin mass conc (Bld) 14.5 g/dL Normal 13.0-17.0 [facility] Comment on above: Performed By: #### C DP, BMP, LIPR, GLYHGB ####[address] [address] Immature granulocytes #/vol (Bld) 1 % High 0 [facility] Comment on above: Performed By: #### C DP, BMP, LIPR, GLYHGB ####[address] [address] Lymphocytes Auto #/vol (Bld) 2.80 10*3/uL Normal 1.10-3.70 [facility] Comment on above: Performed By: #### C DP, BMP, LIPR, GLYHGB ####[address] [address] Lymphocytes/100 WBC Auto (Bld) 26 % Normal 24-43 [facility] Comment on above: Performed By: #### C DP, BMP, LIPR, GLYHGB ####[address] [address] MCH Auto Entitic mass (RBC) 27.9 pg Normal 25.2-33.5 [facility] Comment on above: Performed By: #### C DP, BMP, LIPR, GLYHGB ####[address] [address] MCHC Auto mass conc (RBC) 32.6 g/dL Normal 28.4-34.8 [facility] Comment on above: Performed By: #### C DP, BMP, LIPR, GLYHGB ####[address] [address] MCV Auto Entitic volume (RBC) 85.7 fL Normal 82.6-102.9 [facility] Comment on above: Performed By: #### C DP, BMP, LIPR, GLYHGB ####[address] [address] Monocytes Auto #/vol (Bld) 0.94 10*3/uL Normal 0.10-1.20 [facility] Comment on above: Performed By: #### C DP, BMP, LIPR, GLYHGB ####[address] [address] Monocytes/100 WBC Auto (Bld) 9 % Normal 3-12 [facility] Comment on above: Performed By: #### C DP, BMP, LIPR, GLYHGB ####[address] [address] Neutrophil (Seg) 56 % Normal 36-65 [facility] Comment on above: Performed By: #### C DP, BMP, LIPR, GLYHGB ####[address] [address] NRBC Automated 0.0 per 100 WBC Normal 0.0 [facility] Comment on above: Performed By: #### C DP, BMP, LIPR, GLYHGB ####[address] [address] Platelet mean volume Auto Entitic volume (Bld) 8.8 fL Normal 8.1-13.5 [facility] Comment on above: Performed By: #### C DP, BMP, LIPR, GLYHGB ####[address] [address] Platelets Auto #/vol (Bld) 316 10*3/uL Normal 138-453 [facility] Comment on above: Performed By: #### C DP, BMP, LIPR, GLYHGB ####[address] [address] RBC Auto #/vol (Bld) 5.19 10*6/uL Normal 4.21-5.77 [facility] Comment on above: Performed By: #### C DP, BMP, LIPR, GLYHGB ####[address] [address] WBC Auto #/vol (Bld) 10.9 10*3/uL Normal 3.5-11.3 [facility] Comment on above: Performed By: #### C DP, BMP, LIPR, GLYHGB ####[facility] [address] [place] [address] Auto Diff Performed NOT REPORTED Normal [facility] Comment on above: Performed By: #### C DP, BMP, LIPR, GLYHGB ####[facility] [address] [place] [address] Platelets Auto #/vol (Bld) NOT REPORTED Normal [facility] Comment on above: Performed By: #### C DP, BMP, LIPR, GLYHGB ####[facility] [address] [place] [address] RBC morphology finding Nom (Bld) NOT REPORTED Normal [facility] Comment on above: Performed By: #### C DP, BMP, LIPR, GLYHGB ####[facility] [address] [place] [address] WBC Morphology NOT REPORTED Normal [facility] Comment on above: Performed By: #### C DP, BMP, LIPR, GLYHGB ####[facility] [address] [place] [address] CTA HEAD W CONTRASTon 2017 CTA HEAD [...] by:MARY Duffyigned by:Luiz Mariano MD09/22/17inal result Normal [facility] CTA NECK W CONTRASTon 2017 [...] by:MARY Duffyigned by:Luiz Mariano MD8/2/18Final result Normal [facility] Consulton 09-22-2017 HIM IP Note OR Java Software Engineer Normal [facility] HIM IP Note OR Java Software Engineer Normal [facility] Discharge Summaryon 09-23-19 18 HIM IP Note OR Java Software Engineer Normal [facility] ED Noteon 09-22-2017 HIM IP Note OR Java Software Engineer Normal [facility] HIM IP Note OR Java Software Engineer Normal [facility] ED Provider Noteon 8 HIM IP Note OR Java Software Engineer Normal [facility] History and Physicalon 09-22 HIM IP Note OR Java Software Engineer Normal [facility] Lipid Profileon 09-22-2017 Cholesterol in HDL mass conc 28 mg/dL Low >40 [facility] Comment on above: Result Comment: HDL Guidelines: <40 Undesirable 40-59 Borderline >59 Desirable Performed By: #### C DP, BMP, LIPR, GLYHGB ####[address] [address] Cholesterol in LDL mass conc 79 mg/dL Normal 0-130 [facility] Comment on above: Result Comment: LDL Guidelines: <100 Desirable 100-129 Near to/above Desirable 130-159 Borderline >159 UndesirableDirect (measured) LDL and calculated LDL are not interchangeable tests. Performed By: #### C DP, BMP, LIPR, GLYHGB ####[address] [address] Cholesterol mass conc 135 mg/dL Normal <200 [facility] Comment on above: Result Comment: Chol esterol Guidelines: <200 Desirable 200-240 Borderline >240 Undesirable Performed By: #### C DP, BMP, LIPR, GLYHGB ####[address] [address] Cholesterol.total /Cholesterol in HDL mass ratio 4.8 {ratio} Normal <5 [facility] Comment on above: Performed By: #### C DP, BMP, LIPR, GLYHGB ####[address] [address] Triglyceride mass conc 140 mg/dL Normal <150 [facility] Comment on above: Result Comment: Trig lyceride Guidelines: <150 Desirable 150- 199 Borderline 200-499 High >499 Very high Based on AHA Guidelines for fasting triglyceride, November 2011. Performed By: #### C DP, BMP, LIPR, GLYHGB ####[address] [address] Cholesterol in VLDL mass conc NOT REPORTED Normal 1-30 [facility] Comment on above: Performed By: #### C DP, BMP, LIPR, GLYHGB ####[address] [place] [address] MRI BRAIN WO CONTRASTon MRI BRAIN WO [...] - In Basket (authorizing provider)Final result Normal [facility] Progress Noteon 09-22-2017 HIM IP Note OR Java Software Engineer Normal [facility] HIM IP Note OR Java Software Engineer Normal [facility] HIP RIGHT 1 OR 2 VWS WITH PE LVISon 02-03-2017 HIP RIGHT 1 OR 2 VWS [facility] PELVIS [facility] [place] [address] ==Patient Name: KWABENA MESSER : 1950Sex: MAge: Race: WhiteMRN: [id number]. Location: 84Patient Status: OVisit #: [id number] Date: 02/03/2017 1:25:00 PMCompleted Date: 02/03/2017 01:36 PMRequesting Provider: ONEIL WILLIAMSON Attending Provider: ONEIL WILLIAMSON Report Copy To: Signs & Symptoms: Z47.1 Aftercare following joint replacement surgery [id number]: AthenaComments: , , , Ordering Provider - ONEIL WILLIAMSON MD , Rendering Provider - ONEIL WILLIAMSON MD , Exam: HIP RIGHT 1 OR 2 VWS WITH PELVISAccession #: [id number] =========HIP RIGHT 1 OR 2 VWS WITH [...] arthroplasty Electronically signed by:Keri Durand. Transcribed by: [email or web address], User Resident: Electronically Signed by: KERI DURAND @ 02/03/2017 01:52 PM [facility] Comment on above: Order Comment: , , = ========= , Ordering Provider - ONEIL WILLIAMSON MD , Rendering Provider - ONEIL WILLIAMSON MD , C REACTIVE PROTEINon 01-04- 017 C reactive protein (CRP) 10.5 mg/L High 0.0-7.0 [facility] Comment on above: Performed By: #### 4 6447 ####[facility] CBC COMPLETE BLOOD COUNTon 03-06-2016 Erythrocyte distribution width Auto Ratio (RBC) 14.8 % Normal 11.5-16.9 [facility] Comment on above: Performed By: #### 4 6479 ####[facility] Erythrocytes (RBC) 4.65 mill/mm3 Normal 4.30-5.90 [facility] Comment on above: Performed By: #### 4 6468 ####[facility] Hematocrit (HCT) 40.2 % Normal 39.0-55.0 [facility] Comment on above: Performed By: #### 4 6480 ####[facility] Hemoglobin mass conc (Bld) 12.9 g/dL Low 13.9-16.3 [facility] Comment on above: Performed By: #### 4 6440 ####[facility] [place] [address], [facility] MCH 27.7 pg Normal 24.0-32.0 [facility] Comment on above: Performed By: #### 4 6463 ####[facility] MCHC mass conc (RBC) 32.0 g/dL Normal 32.0-36.0 [facility] Comment on above: Performed By: #### 4 6447 ####[facility] [place] [address], [facility] MCV 86.6 fL Normal 80.0-100.0 [facility] Comment on above: Performed By: #### 4 6447 ####[facility] [place] [address], [facility] PLAT CNT 629 Thou/mm3 High 100-400 [facility] Comment on above: Performed By: #### 4 6447 ####[facility] WBC (Leukocytes) 10.4 Thou/mm3 High 4.0-10.0 [facility] Comment on above: Performed By: #### 4 6447 ####[facility] SEDIMENTATION RATEon 017 SED RATE 50 mm/hr High 0-10 [facility] Comment on above: Performed By: #### 4 6370 ####[facility] CBC W/DIFFon 12-28-2016 Basophils Auto #/vol (Bld) 0.8 % Normal 0.0-2.0 [facility] Comment on above: Performed By: #### 4 7186 ####[facility] [place] [address], [facility] Eosinophils/100 leukocytes 4.0 % Normal 0.0-5.0 [facility] Comment on above: Performed By: #### 4 9176 ####[facility] Erythrocyte distribution width Auto Ratio (RBC) 14.5 % Normal 11.5-16.9 [facility] Comment on above: Performed By: #### 4 8079 ####[facility] Erythrocytes (RBC) 4.34 mill/mm3 Normal 4.30-5.90 [facility] Comment on above: Performed By: #### 4 6459 ####[facility] [facility].[address] Hematocrit (HCT) 37.5 % Low 39.0-55.[address] [facility] Comment on above: Performed By: #### 4 6406 ####[facility] Hemoglobin mass conc (Bld) 12.3 g/dL Low 13.9-16.3 [facility] Comment on above: Performed By: #### 4 6405 ####[place] [address] Lymphocytes/100 leukocytes 17.8 % Low 20.0-40.0 [facility] Comment on above: Performed By: #### 4 7885 ####[facility] MCH 28.3 pg Normal 24.0-32.0 [facility] Comment on above: Performed By: #### 4 3361 ####[facility] MCHC mass conc (RBC) 32.7 g/dL Normal 32.0-36.0 [facility] Comment on above: Performed By: #### 4 8344 ####[place] [address] MCV 86.5 fL Normal 80.0-100.0 [facility] Comment on above: Performed By: #### 4 7568 ####[facility] [place] [address], [place] METHOD Normal RBC Morphology Normal [facility] Comment on above: Performed By: #### 4 6447 ####[facility] [facility] [place] [address], [facility] MONOS 8.0 % Normal 2-8 [facility] Comment on above: Performed By: #### 4 6447 ####[facility] [facility] [place] [place] [address], [facility] Neutrophils/100 leukocytes 69.4 % Normal 50-70 [facility] Comment on above: Performed By: #### 4 6447 ####[facility] [facility] [place] [place] [address], [facility] PLAT CNT 689 Thou/mm3 High 100-400 The [facility] Comment on above: Performed By: #### 4 6447 ####[facility] [facility] [place] [address], [facility] WBC (Leukocytes) 12.6 Thou/mm3 High 4.0-10.0 The [facility] Comment on above: Performed By: #### 4 6447 ####[facility] [place] [address].[place], [place] [address] [place] [address] HIP RIGHT 1 OR 2 VWS WITH PE LVISon 12-28-2016 HIP RIGHT 1 OR 2 VWS WITH PELVIS [facility] [place] [address] ==Patient Name: KWABENA MESSER : 1950Sex: MAge: Race: WhiteMRN: [id number]. Location: 84Patient Status: Date: 12/28/2016 11:15:00 AMCompleted Date: 12/28/2016 11:17 AMRequesting Provider: ONEIL WILLIAMSON Attending Provider: Report Copy To: Signs & Symptoms: Z47.1 Aftercare following joint replacement surgery [id number]: AthenaComments: , , , Ordering Provider - ONEIL WILLIAMSON MD , Exam: HIP RIGHT 1 OR 2 VWS WITH PELVISAccession #: [id number] =========HIP RIGHT 1 OR 2 VWS WITH [...] above Electronically signed by:Keri Durand. Transcribed by: [email or web address], User Resident: Electronically Signed by: KERI DURAND @ 12/28/2016 12:11 PM Normal [facility] Comment on above: Order Comment: , , = ========= , Ordering Provider - ONEIL WILLIAMSON MD , Discharge Summaryon 12-26-19 Discharge Summary MR#: [id number] [facility] Name[facility] Kwabena Messer Admitted: 12/16/2016 Discharged: [...] Oneil Williamson M.D...Date Dict: 12/24/2016/02:55 P/Arash Loomis, [facility]ate Trans: 12/25/2016 10:33 A/mmoDN_JN:[id number] cc: Phil Crenshaw M.D. [address] [place] [address] , [address] [address] [place] [facility] Operative Reporton 12-20-201 7 Operative Report MR#: [id number] [facility] Name: Kwabena Messer Room #: 6AB [id number] Discharge 12/17/2016 Date: Birthdate: 1950 OPERATIVE REPORTDATE OF SURGERY: 12/16/2016SURGEON: Oneil Williamson M.D.SURGEON: Oneil Williamson MD.GAUGER CHIEF: Dr. LoomisANESTHESIA: General anesthesia with fascia iliaca [...] The minimus was closed itselfwith #2 interrupted ideqro-mz-jvsjo suture. The medius to itself with arunning #5 fiber suture. The vastus lateralis with a running #2 Vicrylsuture. The IT band with #2 interrupted mpdidr-ur-zsydv suture. Thesubcutaneous tissue over drain with a running 0-Vicryl suture. The dermiswith 2-0 Vicryl and Biosyn for the skin. Dermabond was applied. Steriledressing applied. At the conclusion of the case, all sponge, needle countscorrect. I was present for the critical portions of this case.Electronically Signed by:Oneil Williamson M.D. 01/05/2017 08:31 P Oneil Williamson M.D.Date Dict: 12/20/2016/09:46 A/Oneil Williamson M.D.Date Trans: 12/20/2016 01:09 P/[id number] cc: Phil Crenshaw M.D. [address] [place] [address] [address] Normal [facility] BASIC METABOLIC PANELon 10-2 Calcium 8.4 mg/dL Low 8.6-10.3 [facility] Comment on above: Order Comment: No: D o not add to previous draw Performed By: #### 5 0103 ####[facility] [place] [address], [facility] Chloride 103 mmol/L Normal 98-107 [facility] Comment on above: Order Comment: No: D o not add to previous draw Performed By: #### 5 0103 ####[facility] [place] [address], [facility] CO2 24 mmol/L Normal 21-31 [facility] Comment on above: Order Comment: No: D o not add to previous draw Performed By: #### 5 0103 ####[facility] [place] [address], [facility] Creatinine 0.72 mg/dL Normal 0.70-1.30 [facility] Comment on above: Order Comment: No: D o not add to previous draw Performed By: #### 5 0103 ####[facility] [place] [address], [facility] eGFR (black) mL/min/{1.73_m2} Normal >60 The [facility] Comment on above: Order Comment: No: D o not add to previous draw Performed By: #### 5 0103 ####[facility] [place] [address], [facility] eGFR (non-black) mL/min/{1.73_m2} Normal >60 Th [facility] Comment on above: Order Comment: No: D o not add to previous draw Performed By: #### 5 0103 ####[facility] [place] [address], [facility] Glucose mass conc 191 mg/dL High 70-100 The [facility] Comment on above: Order Comment: No: D o not add to previous draw Performed By: #### 5 0103 ####[facility] [place] [address], [facility] Potassium molar conc 3.9 mmol/L Normal 3.5-5.1 [facility] Comment on above: Order Comment: No: D o not add to previous draw Performed By: #### 5 0103 ####[facility] Sodium 135 mmol/L Low 136-145 [facility] Comment on above: Order Comment: No: D o not add to previous draw Performed By: #### 5 0103 ####[facility] [facility].[address] Urea nitrogen 12 mg/dL Normal 7-25 The [facility] Comment on above: Order Comment: No: D o not add to previous draw Performed By: #### 5 0103 ####[facility] [facility].[address] CBC W/DIFFon 12-17-2016 Basophils Auto #/vol (Bld) 0.3 % Normal 0.0-2.0 [facility] Comment on above: Order Comment: No: D o not add to previous draw Performed By: #### 5 0103 ####[facility] Eosinophils/100 leukocytes 1.0 % Normal 0.0-5.0 [facility] Comment on above: Order Comment: No: D o not add to previous draw Performed By: #### 5 0103 ####[facility] Erythrocyte distribution width Auto Ratio (RBC) 15.0 % Normal 11.5-16.9 [facility] Comment on above: Order Comment: No: D o not add to previous draw Performed By: #### 5 0103 ####[facility] Erythrocytes (RBC) 4.01 mill/mm3 Low 4.30-5.90 [facility] Comment on above: Order Comment: No: D o not add to previous draw Performed By: #### 5 0103 ####[facility] [place] [address], [facility] Hematocrit (HCT) 34.7 % Low 39.0-55.[address] [facility] Comment on above: Order Comment: No: D o not add to previous draw Performed By: #### 5 0103 ####[facility] Hemoglobin mass conc (Bld) 11.4 g/dL Low 13.9-16.3 [facility] Comment on above: Order Comment: No: D o not add to previous draw Performed By: #### 5 0103 ####[place] [address] [facility].[address] Lymphocytes/100 leukocytes 12.8 % Low 20.0-40.0 [facility] Comment on above: Order Comment: No: D o not add to previous draw Performed By: #### 5 0103 ####[facility] [facility].[address] MCH 28.3 pg Normal 24.0-32.0 [facility] Comment on above: Order Comment: No: D o not add to previous draw Performed By: #### 5 3 ####[facility] [facility].[address] MCHC mass conc (RBC) 32.8 g/dL Normal 32.0-36.0 [facility] Comment on above: Order Comment: No: D o not add to previous draw Performed By: #### 5 0103 ####[facility] [facility].[address] MCV 86.5 fL Normal 80.0-100.0 [facility] Comment on above: Order Comment: No: D o not add to previous draw Performed By: #### 5 3 ####[facility] [place] [address], [facility] METHOD Normal RBC Morphology Normal [facility] Comment on above: Order Comment: No: D o not add to previous draw Performed By: #### 5 0103 ####[facility] [place] [address], [facility] MONOS 10.4 % High 2-8 [facility] Comment on above: Order Comment: No: D o not add to previous draw Performed By: #### 5 0103 ####[facility] [facility] [place] [address], [facility] Neutrophils/100 leukocytes 75.5 % High 50-70 [facility] Comment on above: Order Comment: No: D o not add to previous draw Performed By: #### 5 0103 ####[facility] [facility] [place] [address], [facility] PLAT CNT 320 Thou/mm3 Normal 100-400 [facility] Comment on above: Order Comment: No: D o not add to previous draw Performed By: #### 5 0103 ####[place] [address] [facility] [place] [address], [facility] WBC (Leukocytes) 12.3 Thou/mm3 High 4.0-10.0 [facility] Comment on above: Order Comment: No: D o not add to previous draw Performed By: #### 5 0103 ####[facility] [facility] [place] [address], [facility] HEMOGLOBINon 12-17-2016 Hemoglobin mass conc (Bld) 12.5 g/dL Low 13.9-16.3 [facility] Comment on above: Order Comment: No: D o not add to previous draw Performed By: #### 5 0103 ####[facility] [facility] [place] [address], [facility] POC GLUCOSE LABon 12-17-2016 Glucose mass conc 179 mg/dL High 70-100 [facility] Comment on above: Performed By: #### 5 0103 ####[facility] Glucose mass conc 183 mg/dL High 70-100 [facility] Comment on above: Performed By: #### 5 0103 ####[facility] [facility].[address] PROTHROMBIN TIMEon 7 INR Coag RelTime (PPP) 1.15 {INR} Normal 0.91-1.16 [facility] Comment on above: Order Comment: No: [...] OF ACTION, CLINICALEFFECTIVENESS, AND OPTIMAL THERAPEUTIC RANGE. [id number];108:231S-246S. Performed By: #### 5 0103 ####[facility] Prothrombin time (PT) Coag time (PPP) 14.8 s Normal 12.3-14.8 [facility] Comment on above: Order Comment: No: D o not add to previous draw Result Comment: ALL RESULTS MUST BE INTERPRETED WITH RESPECT TO BLOOD DRAWING ARTIFACTOR DILUTION ERROR OF ANTICOAGULANT AT THE TIME OF SAMPLING. Performed By: #### 5 0103 ####[address] POC GLUCOSE LABon 12-16-2016 Glucose mass conc 391 mg/dL High 70-100 [facility] Comment on above: Performed By: #### 5 0103 ####[place] [address], [facility] Glucose mass conc 160 mg/dL High 70-100 [facility] Comment on above: Performed By: #### 5 0103 ####[place] [address], [facility] Glucose mass conc 141 mg/dL High 70-100 [facility] Comment on above: Performed By: #### 8 5499 ####[address] PORTABLE HIP RIGHT 1 OR 2 VW S WITH PELVISon 12-16-2016 PORTABLE HIP RIGHT 1 OR 2 VWS WITH PELVIS [facility] [place] [address] ==Patient Name: KWABENA MESSER : 1950Sex: MAge: Race: WhiteMRN: [id number]. Location: OUTPPatient Status: OVisit #: [id number] Date: 12/16/2016 11:40:00 AMCompleted Date: 12/16/2016 12:02 PMRequesting Provider: ARASH LOOMIS Attending Provider: ONEIL WILLIAMSON Report Copy To: Signs & Symptoms: Pain ( specify Location)History: Patient history not availableComments: Hardware EvaluationExam: PORTABLE HIP RIGHT 1 OR 2 VWS WITH PELVISAccession #: [id number] =========PORTABLE HIP RIGHT 1 OR 2 VWS [...] arthroplasty. Electronically signed by:Connor Xiong. Transcribed by: [email or web address], User Resident: Electronically Signed by: CONNOR XIONG @ 12/16/2016 01:09 PM Normal [facility] Comment on above: Order Comment: Hardw are Evaluation RBC'S 2 UNITSon 12-16-2016 CROSSMATCH INTERP 1 COMP Normal [facility] Comment on above: Performed By: #### 5 0103 ####[facility] [place] [address], [facility] CROSSMATCH INTERP 2 COMP Normal [facility] Comment on above: Performed By: #### 5 0103 ####[facility] [place] [address], [facility] PRODUCT CODE 1 E0336 Normal [facility] Comment on above: Performed By: #### 5 0103 ####[facility] [place] [address], [facility] PRODUCT CODE 2 E0336 Normal [facility] Comment on above: Performed By: #### 5 0103 ####[facility] [place] [address], [facility] PRODUCT STATUS 1 RE Normal The [facility] Comment on above: Result Comment: Resu lt changed by IF on 12/19/2016 07:07. The previous value was XM. Performed By: #### 5 0103 ####[facility] [place] [address], [facility] PRODUCT STATUS 2 RE Normal The [facility] Comment on above: Result Comment: Resu lt changed by IF on 12/19/2016 07:07. The previous value was XM. Performed By: #### 5 0103 ####[facility] [place] [address], [facility] UNIT ABO 1 A Normal [facility] Comment on above: Performed By: #### 5 0103 ####[facility] [place] [address], [facility] UNIT ABO 2 A Normal [facility] Comment on above: Performed By: #### 5 0103 ####[facility] [place] [address], [facility] UNIT ID 1 [id number] Normal The [facility] Comment on above: Performed By: #### 5 0103 ####[facility] [place] [address], [facility] UNIT ID 2 [id number] Normal [facility] Comment on above: Performed By: #### 5 0103 ####[facility] [place] [address], [place] UNIT RH 1 Positive Normal [facility] Comment on above: Performed By: #### 5 3 ####[facility] UNIT RH 2 Positive Normal [facility] Comment on above: Performed By: #### 5 0103 ####[facility] [facility].[address] APTTon 12-02-2016 aPTT 26.0 s Normal 25.0-35.0 [facility] Comment on above: Result Comment: ALL [...] THIS PURPOSE. Performed By: #### 5 6101, [address] ####[facility] BASIC METABOLIC PANELon 11-21 Calcium 9.7 mg/dL Normal 8.6-10.3 [facility] Comment on above: Performed By: #### 0 0071 ####[place] [address] [facility].[address] Chloride 101 mmol/L Normal 98-107 [facility] Comment on above: Performed By: #### 0 0071 ####[place] [address] [facility].[address] CO2 23 mmol/L Normal 21-31 [facility] Comment on above: Performed By: #### 0 0071 ####[facility] [facility].[address] Creatinine 0.75 mg/dL Normal 0.70-1.30 [facility] Comment on above: Performed By: #### 0 0071 ####[facility] eGFR (black) mL/min/{1.73_m2} Normal >60 The [facility] Comment on above: Performed By: #### 0 0071 ####[facility] eGFR (non-black) mL/min/{1.73_m2} Normal >60 Th e [facility] Comment on above: Performed By: #### 0 0071 ####[facility] Glucose mass conc 173 mg/dL High 70-100 [facility] Comment on above: Performed By: #### 0 0071 ####[facility] [facility].[address] Potassium molar conc 4.0 mmol/L Normal 3.5-5.1 [facility] Comment on above: Performed By: #### 0 0071 ####[place] [address] [facility].[address] Sodium 137 mmol/L Normal 136-145 [facility] Comment on above: Performed By: #### 0 0071 ####[place] [address] [facility].[address] Urea nitrogen 14 mg/dL Normal 7-25 The [facility] Comment on above: Performed By: #### 0 0071 ####[facility] CBC COMPLETE BLOOD COUNTon Erythrocyte distribution width Auto Ratio (RBC) 14.5 % Normal 11.5-16.9 [facility] Comment on above: Performed By: #### 5 0608 ####[facility] [facility].[address] Erythrocytes (RBC) 5.39 mill/mm3 Normal 4.30-5.90 [facility] Comment on above: Performed By: #### 5 0608 ####[facility] [facility] [place] [place] [address], [facility] Hematocrit (HCT) 46.4 % Normal 39.0-55.[address] [facility] Comment on above: Performed By: #### 5 0608 ####[facility] [facility] [place] [address], [facility] Hemoglobin mass conc (Bld) 15.3 g/dL Normal 13.9-16.3 [facility] Comment on above: Performed By: #### 5 0608 ####[facility] [facility] [place] [address], [facility] MCH 28.4 pg Normal 24.0-32.0 [facility] Comment on above: Performed By: #### 5 0608 ####[facility] [facility].[address] MCHC mass conc (RBC) 33.0 g/dL Normal 32.0-36.0 [facility] Comment on above: Performed By: #### 5 0608 ####[facility] [facility].[address] MCV 86.1 fL Normal 80.0-100.0 [facility] Comment on above: Performed By: #### 5 0608 ####[facility] [facility] [place] [address], [facility] PLAT CNT 414 Thou/mm3 High 100-400 [facility] Comment on above: Performed By: #### 5 0608 ####[facility] [facility] [place] [address], [facility] WBC (Leukocytes) 10.0 Thou/mm3 Normal 4.0-10.0 [facility] Comment on above: Performed By: #### 5 0608 ####[facility] [place] [address], [facility] PROTHROMBIN TIMEon 7 INR Coag RelTime (PPP) 1.08 {INR} Normal 0.91-1.16 [facility] Comment on above: Result Comment: ACCC P RECOMMENDED INR FOR WARFARIN THERAPY CONDITION INRPROPHYLAXIS OF VENOUS THROMBOSIS 2-3(HIGH-RISK SURGERY)TREATMENT OF VENOUS THROMBOSIS 2-3TREATMENT OF PULMONARY EMBOLISM 2-3PREVENTION OF SYSTEMIC EMBOLISM: 2-3 ACUTE MYOCARDIAL INFARCTION TISSUE HEART VALVES VALVULAR HEART DISEASE ATRIAL FIBRILLATION RECURRENT SYSTEMIC EMBOLISMMECHANICAL HEART VALVE 2.5-3.5 FROM: ORAL ANTICOAGULANTS. MECHANISM OF ACTION, CLINICALEFFECTIVENESS, AND OPTIMAL THERAPEUTIC RANGE. [id number];108:231S-246S. Performed By: #### 5 6101, 08998 ####[facility] [facility].[address] Prothrombin time (PT) Coag time (PPP) 14.0 s Normal 12.3-14.8 [facility] Comment on above: Result Comment: ALL RESULTS MUST BE INTERPRETED WITH RESPECT TO BLOOD DRAWING ARTIFACTOR DILUTION ERROR OF ANTICOAGULANT AT THE TIME OF SAMPLING. Performed By: #### 5 6101, 00500 ####[facility] [facility] [place] [address], [facility] TYPE AND CROSSMATCHon 2016 ABO INTERPRETATION A Normal [facility] Comment on above: Performed By: #### 6 2594 ####[facility] [facility] [place] [address], [facility] ANTIBODY SCREEN Negative Normal The [facility] Comment on above: Performed By: #### 6 1244 ####[facility] [facility].[address] RH INTERPRETATION Positive Normal [facility] Comment on above: Performed By: #### 6 2594 ####[facility] [facility].[address] *MRSA/MSSA CULTUREon 017 *MRSA/MSSA CULTURE Clinical Report: (D) Specimen: NASAL SWAB Collected: 10/12/2016 12:17 Status: Final Last Updated: 10/13/2016 14:36 CULT RES (Final) No Methicillin Resistant Staphylococcus aureus Isolated ISO (Final) No Methicillin Sensitive Staphylococcus aureus Isolated Normal [facility] Comment on above: Performed By: #### 3 1302 ####[facility] [facility].[address] CBC W/DIFFon 10-12-2016 Basophils Auto #/vol (Bld) 0.6 % Normal 0.0-2.0 [facility] Comment on above: Performed By: #### 5 0103 ####[facility] [facility].[address] Eosinophils/100 leukocytes 5.6 % High 0.0-5.0 [facility] Comment on above: Performed By: #### 5 0103 ####[facility] [facility].[address] Erythrocyte distribution width Auto Ratio (RBC) 14.7 % Normal 11.5-16.9 [facility] Comment on above: Performed By: #### 5 0103 ####[facility] [facility].[address] Erythrocytes (RBC) 5.59 mill/mm3 Normal 4.30-5.90 [facility] Comment on above: Performed By: #### 5 0103 ####[facility] [facility].[address] Hematocrit (HCT) 47.7 % Normal 39.0-55.0 The [facility] Comment on above: Performed By: #### 5 0103 ####[facility] Hemoglobin mass conc (Bld) 15.9 g/dL Normal 13.9-16.3 [facility] Comment on above: Performed By: #### 5 0103 ####[facility] [facility].[address] Lymphocytes/100 leukocytes 18.5 % Low 20.0-40.0 [facility] Comment on above: Performed By: #### 5 0103 ####[facility] MCH 28.4 pg Normal 24.0-32.0 [facility] Comment on above: Performed By: #### 5 0103 ####[facility] MCHC mass conc (RBC) 33.3 g/dL Normal 32.0-36.0 [facility] Comment on above: Performed By: #### 5 0103 ####[facility] MCV 85.4 fL Normal 80.0-100.0 [facility] Comment on above: Performed By: #### 5 0103 ####[facility] [facility].[address] METHOD Normal [facility] Comment on above: Result Comment: Auto mated differential performedNormal RBC Morphology Performed By: #### 5 3 ####[facility] [facility].[address] MONOS 7.8 % Normal 2-8 [facility] Comment on above: Performed By: #### 5 3 ####[facility] [facility] [place] [place] [address], [facility] Neutrophils/100 leukocytes 67.5 % Normal 50-70 The [facility] Comment on above: Performed By: #### 5 [id number] ####[facility] [facility] [place] [address], [facility] PLAT CNT 399 Thou/mm3 Normal 100-400 The [facility] Comment on above: Performed By: #### 5 [id number] ####[facility] [facility] [place] [place] [address], [facility] WBC (Leukocytes) 11.0 Thou/mm3 High 4.0-10.0 The [facility] Comment on above: Performed By: #### 5 [id number] ####[facility] [facility] [place] [address], [facility] HEMOGLOBIN A1Con 10-12-2016 Glucose mass conc 180 mg/dL High 70-126 The [facility] Comment on above: Performed By: #### 4 [id number] ####[facility] [facility] [place] [address], [facility] Hemoglobin A1c/Hemoglobin.to shahid mass fraction (Bld) 7.9 % High 4.0-6.0 [facility] Comment on above: Performed By: #### 4 [id number] ####[address] [place] [address], [facility] HIP RIGHT 1 OR 2 VWS WITH PE LVISon 10-12-2016 HIP RIGHT 1 OR 2 VWS WITH PELVIS [facility] [address] [place] [id number] ==Patient Name: KWABENA MESSER : 1950Sex: MAge: Race: WhiteMRN: [id number]. Location: 84Patient Status: OVisit #: [id number] Date: 10/12/2016 10:45:00 AMCompleted Date: 10/12/2016 10:48 AMRequesting Provider: ONEIL WILLIAMSON Attending Provider: ONEIL WILLIAMSON Report Copy To: Signs & Symptoms: M16.11 Unilateral primary osteoarthritis, right hip F90Ezzhmeu: AthenaComments: , , , Ordering Provider - ONEIL WILLIAMSON MD , Rendering Provider - ONEIL WILLIAMSON MD , Exam: HIP RIGHT 1 OR 2 VWS WITH PELVISAccession #: [id number] =========HIP RIGHT 1 OR 2 VWS WITH [...] moderate. Electronically signed by:Geovanny Jorgensen. Transcribed by: [email or web address], User Resident: Electronically Signed by: GEOVANNY JORGENSEN @ 10/12/2016 11:55 AM Normal [facility] Comment on above: Order Comment: , , = ========= , Ordering Provider - ONEIL WILLIAMSON MD , Rendering Provider - ONEIL WILLIAMSON MD , Vital Signs Date Time Vital Sign Value Performing Clinician Facility 07-08-2023 07:23-0400 Diastolic blood pressure 54 mm[Hg] Mri (I-Stat/1.5t) Work Phone: [facility] 07-08-2023 07:23-0400 Heart rate 111 /min Mri (I-Stat/1.5t) Work Phone: [facility] 07-08-2023 07:23-0400 Systolic blood pressure 155 mm[Hg] Mri (I-Stat/1.5t) Work Phone: [facility] 01-17-2019 11:40-0500 Body Temperature 97.11 [degF] [address] 01-17-2019 11:40-0500 BP Diastolic 97 mm[Hg] [address] 01-17-2019 11:40-0500 BP Systolic 162 mm[Hg] [address] 01-17-2019 11:40-0500 Pulse (Heart Rate) 96 /min [address] 01-17-2019 11:40-0500 Respiratory Rate 20 /min [address] 01-15-2019 11:10-0500 BP Diastolic 81 mm[Hg] [address] 01-15-2019 11:10-0500 BP Systolic 164 mm[Hg] [address] 01-15-2019 10:45-0500 Body Temperature 98.1 [degF] [address] 01-15-2019 10:45-0500 Pulse (Heart Rate) 97 /min [address] 01-15-2019 10:45-0500 Respiratory Rate 20 /min [address] 01-14-2019 10:10-0500 Body Temperature 97.81 [degF] [address] 01-14-2019 10:10-0500 BP Diastolic 60 mm[Hg] [address] , [place] 01-14-2019 10:10-0500 BP Systolic 165 mm[Hg] [address] , [place] 01-14-2019 10:10-0500 Pulse (Heart Rate) 92 /min [address], [place] 01-14-2019 10:10-0500 Pulse Oximetry 96 % [address] , [place] 01-14-2019 10:10-0500 Respiratory Rate 16 /min [address], [place] 01-13-2019 10:50-0500 BP Diastolic 77 mm[Hg] [address] , [place] 01-13-2019 10:50-0500 BP Systolic 154 mm[Hg] [address] , [place] 01-13-2019 10:50-0500 Pulse (Heart Rate) 83 /min [address], [place] 01-13-2019 10:18-0500 Body Temperature 98.4 [degF] [address], [place] 01-13-2019 10:18-0500 Pulse Oximetry 99 % [address] , [place] 01-13-2019 10:18-0500 Respiratory Rate 20 /min [address], [place] 01-12-2019 17:45-0500 BP Diastolic 59 mm[Hg] [facility] [place] 01-12-2019 17:45-0500 BP Systolic 137 mm[Hg] [facility] [place] [facility] [place] 01-12-2019 17:45-0500 Pulse (Heart Rate) 75 /min [facility] [place] 01-12-2019 17:45-0500 Pulse Oximetry 95 % [facility] [place] 01-12-2019 17:45-0500 Respiratory Rate 18 /min [facility] [place] 01-12-2019 17:18-0500 Body Temperature 97.59 [degF] [facility] [place] 01-12-2019 14:45-0500 BMI (Body Mass Index) 58.18 kg/m2 Jessica Ruff [facility], [place] 01-12-2019 14:45-0500 Body weight 178.72 kg Jessica Cooper [facility] , [place] 01-12-2019 14:45-0500 Height 175.3 cm Jessica Cooper [facility] , [place] Encounters Encounter Date Encounter Type Care Provider Facility Start: 09-30-2023 End: 09-30-2023 ambulatory [facility] Start: 08-11-2023 End: 08-11-2023 Encounter for other preprocedural examination [facility] Start: 08-11-2023 End: 08-11-2023 ambulatory [facility] Start: 07-30-2023 End: 07-30-2023 Emergency department patient visit [facility] Start: 07-29-2023 End: 07-29-2023 ambulatory [facility] Start: 07-26-2023 Encounter for other preprocedural examination [facility] Start: 07-08-2023 End: 07-08-2023 ambulatory [facility] Facility:[facility] Start: 07-08-2023 End: 07-08-2023 Subsequent hospital visit by physician Mri Main J 2 (I-Stat/1.5t) Work Phone: MRI [facility] Start: 06-28-2023 End: 06-28-2023 ambulatory [facility] Start: 06-08-2023 End: 06-08-2023 ambulatory [facility] Start: 2023 Telephone encounter Mari Henry) Mi tra Cardiology Comment on above: Appointment Start: 04-29-2023 End: 04-29-2023 ambulatory [facility] Start: 04-15-2023 End: 04-15-2023 ambulatory [facility] Start: 03-31-2023 End: 04-02-2023 ambulatory [facility]OL HALEYOB [facility] Start: 03-31-2023 End: 04-02-2023 Subsequent hospital visit by physician Marisol Carr MD Work Phone: [facility] Comment on above: Hyperlipidemia, unsp ecified hyperlipidemia type; Type 2 diabetes mellitus with hyperglycemia, with long-term current use of insulin (HCC); Essential hypertension Abnormal x-ray; Lung density on x-ray Start: 02-09-2023 End: 02-09-2023 ambulatory TAY COX [facility] Start: 02-09-2023 End: 02-09-2023 ambulatory [facility] Start: 01-26-2023 End: 01-26-2023 ambulatory MARISOL HALEYOB [facility] Start: 01-24-2023 End: 01-24-2023 ambulatory MARISOL HALEYOB [facility] Start: 01-20-2023 End: 01-20-2023 ambulatory MARISOL HALEYOB [facility] Start: 01-17-2023 End: 01-17-2023 ambulatory MARISOL HALEYOB [facility] Start: 01-12-2023 End: 01-12-2023 ambulatory MARISOL HALEYOB [facility] Start: 01-10-2023 End: 01-10-2023 ambulatory MARISOL HALEYOB [facility] Start: 01-07-2023 End: 01-07-2023 ambulatory MARISOL HALEYOB [facility] Start: 01-04-2023 End: 01-04-2023 ambulatory MARISOL HALEYOB [facility] Start: 12-22-2022 End: 12-24-2022 ambulatory MARISOL HALEYOB [facility] Start: 10-27-2022 End: 10-27-2022 ambulatory MARISOL IACOB [facility] Start: 09-16-2022 End: 09-16-2022 ambulatory MARISOL IACOB [facility] Start: 04-29-2022 End: 04-29-2022 Subsequent hospital visit by physician Phil Crenshaw MD Work Phone: [facility] Comment on above: Essential hypertensi on Start: 07-21-2021 End: 07-21-2021 Subsequent hospital visit by physician Phil Crenshaw MD Work Phone: [facility] Comment on above: Left lower quadrant abdominal pain Start: 06-01-2021 End: 06-01-2021 Patient encounter procedure Phil Crenshaw MD Work Phone: [facility] Start: 06-01-2021 End: 06-01-2021 Subsequent hospital visit by physician Phil Crenshaw MD Work Phone: [facility] Comment on above: Encounter for prosta te cancer screening; Encounter for Medicare annual wellness exam; Type 2 diabetes mellitus without complication, without long-term current use of insulin (HCC) Start: 01-08-2020 End: 01-08-2020 Subsequent hospital visit by physician Phil Crenshaw [facility] Comment on above: Encounter for prosta te cancer screening; Encounter for Medicare annual wellness exam; Type 2 diabetes mellitus without complication, without long-term current use of insulin (HCC) Start: 01-17-2019 End: 01-17-2019 Subsequent hospital visit by physician [facility] 03 [facility] ([facility]) Start: 01-15-2019 End: 01-15-2019 Subsequent hospital visit by physician [facility] 03 [facility] ([facility]) Start: 01-14-2019 End: 01-14-2019 Subsequent hospital visit by physician [facility] 01 [facility] ([facility]) Comment on above: Arrived Start: 01-13-2019 End: 01-13-2019 Subsequent hospital visit by physician [facility] Op Treatment 01 [facility] ([facility]) Comment on above: Arrived Start: 01-12-2019 End: 01-12-2019 Patient encounter procedure JESSICA COOPER [facility] Start: 01-12-2019 End: 01-12-2019 Subsequent hospital visit by physician Jessica Cooper Work Phone: [facility] Comment on above: Gluteal abscess (Sue herber Dx) Start: 09-22-2017 End: 09-22-2017 Evaluation and management of inpatient PHIL CRENSHAW [facility] Start: 02-03-2017 End: 02-04-2017 Ambulatory ONEIL WILLIAMSON Facility:[facility] Start: 01-04-2017 End: 01-05-2017 Ambulatory ONEIL WILLIAMSON Facility:[facility] Start: 12-28-2016 End: 12-29-2016 Ambulatory ONEIL WILLIAMSON Facility:[facility] Start: 12-16-2016 End: 12-17-2016 Evaluation and management of inpatient ONEIL WILLIAMSON Facility:[facility] Start: 10-12-2016 End: 10-13-2016 Ambulatory ONEIL WILLIAMSON Facility:[facility] Procedures Date Procedure Procedure Detail Performing [...] VITAL SIGNS JESSICA DAVALOS Start: 01-12-2019 VOID RESIDENTIAL CAREGIVER TO OR JESSICA GONZALEZJOSE Start: 01-12-2019 Gluc bld gluc mntr d ev cleared fda spec home use Jessica Khalida Gonzalezivinen Work Phone: Start: 01-12-2019 Blood count complete auto&auto difrntl wbc Jessica P Carlosivinen Work Phone: Start: 01-12-2019 Gluc bld gluc mntr d ev cleared fda spec home use Jessica P Carlosivinen Work Phone: Start: 09-22-2017 DISCHARGE PATIENT JOSH CRENSHAW Start: 09-22-2017 TELEMETRY MONITORING TAPNA CRENSHAW Start: 09-22-2017 Mri brain brain stem [...] Author Start: 03-31-2028 Lipid panel Lipid Screening [facility] Start: 11-25-2026 Screening for malignant neoplasm of colon [facility] [employer] Start: 03-31-2026 Diabetes Screening Diabetes Screening [facility] Start: 03-09-2026 Hepatitis C screen Hepatitis C [place] [facility] [place] Comment on above: Postponed from 1950 (Unavailable) Start: 03-09-2026 Hepatitis C screening Hepatitis C screen [employer] Comment on above: Postponed from 1950 (Unavailable) Postponed from 06/03 (Unavailable) Start: 08-05-2024 Colon cancer screen colonoscopy Colon cancer screen colonoscopy [employer] [place] Start: 08-05-2024 [facility] Start: 03-31-2024 GFR test (Diabetes, CKD 3-4, OR last GFR 15-59) GFR test (Diabetes, CKD 3-4, OR last GFR 15-59) [facility] [employer] Start: 03-31-2024 Lipid panel Lipids [facility] [employer] Start: 03-18-2024 Depression Monitoring Depression Monitoring [facility] [employer] Start: 02-10-2024 Hemoglobin A1c measurement A1C test (Diabetic or Prediabetic) [facility] [employer] Start: 10-28-2023 Urine screening for protein Diabetic Alb to Cr ratio (uACR) test [facility] [employer] Start: 10-23-2023 Influenza vaccination Influenza Vaccine (Season Ended) [facility] Start: 06-09-2023 Covid-19 Vaccine ( season) Covid-19 Vaccine () [facility] Start: 05-04-2023 End: 05-04-2023 Patient encounter procedure [facility] Comment on above: emg rue Start: 04-30-2023 GFR test (Diabetes, CKD 3-4, OR last GFR 15-59) GFR test (Diabetes, CKD 3-4, OR last GFR 15-59) [facility] Start: 04-28-2023 End: 04-28-2023 Patient encounter procedure 04/28/2023 10:45 AM EST Office Visit [facility] [address] [place] [address] [address] [place] [address] Marisol Carr MD [address] [place] [address] 3 [place] [facility] Comment on above: 3 [place] Start: 03-25-2023 Depression Monitoring Depression Monitoring [facility] Start: 03-25-2023 Hemoglobin A1c measurement A1C test (Diabetic or Prediabetic) [facility] Start: 02-21-2023 Advance Directive Discussion Advance Directive Discussion [facility] Start: 02-21-2023 Behavioral Health Screening Behavioral Health Screening [facility] Start: 01-17-2023 Annual Wellness Visit (Medicare) Annual Wellness Visit (Medicare) [facility] Start: 10-22-2022 Covid-19 Vaccine () Covid-19 Vaccine () [facility] Start: 07-15-2022 End: 07-15-2022 Patient encounter procedure 07/15/2022 Office Visit Primary Care Marisol Carr MD [address] [place] [address] [facility] Start: 06-01-2022 Creatinine measurement Creatinine monitoring [facility] Start: 06-01-2022 Lipid panel Lipids [facility] Start: 06-01-2022 Potassium monitoring Potassium monitoring [facility] Start: 06-01-2022 Prostate specific antigen measurement Prostate Specific Antigen (PSA) Screening or Monitoring [facility] Start: 05-26-2022 Annual Wellness Visit (AWV) Annual Wellness Visit (AWV) [facility] Start: 05-25-2022 Depression Monitoring Depression Monitoring [facility] Start: 10-06-2021 End: 10-06-2021 Patient encounter procedure 10/06/2021 Office Visit Gastroenterology Melanie Galindo [address] [facility] [place] [address] [facility] Start: 08-27-2021 End: 08-27-2021 Patient encounter procedure 08/27/2021 Office Visit Primary Care Phil Crenshaw MD [address] [facility] [address] [place] [address] [facility] Start: 08-24-2021 Hemoglobin A1c measurement A1C test (Diabetic or Prediabetic) [facility] Start: 08-15-2021 Diabetic foot examination Diabetic foot exam [facility] Start: 02-11-2021 COVID-19 Vaccine (4 - Booster for Moderna series) COVID-19 Vaccine (4 - Booster for Moderna series) [facility] Start: 01-07-2021 HbA1c (Bld) [Mass fraction] A1C test (Diabetic or Prediabetic) [place], [place] Start: 01-07-2021 Lipid panel Lipid screen [facility] Start: 01-07-2021 Urine screening for protein [facility] Start: 04-08-2020 End: 04-08-2020 Office Visit 04/08/2020 Office Visit Family Medicine Phil Crenshaw MD [address] [facility] [address] [place] [address] Phil Crenshaw MD Start: 04-14-2019 A1C test (Diabetic or Prediabetic) A1C test (Diabetic or Prediabetic) [facility], [place] Start: 03-31-2019 [object Object] Diabetic foot exam [facility], [place] Start: 03-31-2019 Diabetic foot examination Diabetic foot exam [facility], [place] Start: 03-31-2019 Diabetic microalbuminuria test Diabetic microalbuminuria test [place], [place] Start: 01-30-2019 End: 01-30-2019 Office Visit 01/30/2019 Office Visit General Surgery Jessica Cooper MD [address] [facility] [address] [place], [place] [id number] [facility] Start: 01-22-2019 End: 01-22-2019 Appointment 01/22/2019 [facility] Start: 01-21-2019 End: 01-21-2019 [...] Visit General Surgery Jessica Cooper MD [address] [facility] [address] [place] [address] [phone] [facility] Start: 01-14-2019 End: 01-14-2019 Appointment 01/14/2019 Appointment Infusion [facility] Start: 11-23-2018 Pneumococcal 65+ years Vaccine (2 of 2 - PPSV23) Pneumococcal 65+ years Vaccine (2 of 2 - PPSV23) [place], [place] Start: 10-22-2018 Influenza vaccination Flu vaccine (#1) [place] Start: 09-22-2018 Creatinine measurement Creatinine monitoring [place], [place] Start: 09-22-2018 Creatinine monitoring Creatinine monitoring [place], [place] Start: 09-22-2018 Lipid panel Lipid screen [place] Start: 09-22-2018 Lipid screen Lipid screen [place] Start: 09-22-2018 Potassium monitoring Potassium monitoring [place] Start: 07-19-2018 Annual Wellness Visit (AWV) Annual Wellness Visit (AWV) [place] Start: 2017 Pneumococcal Vaccine: 65+ (1 of 1 - PCV) Pneumococcal Vaccine: 65+ (1 of 1 - PCV) [facility] Start: 02-05-2016 Diabetic retinal exam Diabetic retinal exam [facility] Start: 02-05-2016 Glaucoma screening Diabetic retinal exam [facility] Start: 2012 Respiratory Syncytial Virus (RSV) or age 60 yrs+ (1 - 1-dose 60+ series) Respiratory Syncytial Virus (RSV) or age 60 yrs+ (1 - 1-dose 60+ series) [facility] Start: 2012 RSV Vaccine (1 - 1-dose 60+ series) RSV Vaccine (1 - 1-dose 60+ series) [facility] Start: 2002 Shingles Vaccine (1 of 2) Shingles Vaccine (1 of 2) [facility] Start: 2002 Shingrix Vaccine (1 of 2) Shingrix Vaccine (1 of 2) [facility] Start: 1997 Diabetes Screening Diabetes Screening [facility] Start: 1997 Screening for malignant neoplasm of colon [facility] Start: 06-04-1987 Lipid panel Lipid Screening [facility] Start: 06-04-1971 DTaP/Tdap/Td vaccine (1 - Tdap) DTaP/Tdap/Td vaccine (1 - Tdap) [facility] Start: 06-04-1971 Urine microalbumin profile DTaP,Tdap,Td Vaccine (1 - Tdap) [facility] Start: 1970 Hepatitis C screening Hepatitis C Screening [facility] Start: 06-04-1963 DTaP/Tdap/Td vaccine (1 - Tdap) DTaP/Tdap/Td vaccine (1 - Tdap) [place], [place] [employer] [place] Comment on above: ONE TIME for 1 Occurrences starting 12/23 End: 01-12-2019 Blood glucose - POCT Blood glucose - POCT Point of Care Testing Routine One Time for 1 Occurrences starting 01/12/2019 until 01/12/2019 [place], [place] Comment on above: One Time for 1 Occurrences starting 12/23 until 01/12/2019 Initiate Oxygen Ther apy Protocol Initiate Oxygen Therapy Protocol Respiratory Care Routine Daily until discontinued starting 01/12/2019 [facility], [place] Comment on above: Daily until discontinued starting 2018 Leija Marta mcneal Immunizations Immunization Date Immunization Notes Care Provider Lis canada 11-27-2021 Influenza, FLUAD, (a ge 65 y+), Adjuvanted, 0.5mL Phil Crenshaw MD Work Phone: [facility] Work Phone: 11-20-2020 Influenza, Quadv, adjuvanted, 65 yrs +, IM, PF (Fluad) Phil Crenshaw MD Work Phone: [facility] 05-14-2020 COVID-19, Moderna, Primary or Immunocompromised, PF, 100mcg/0.5mL Phil Crenshaw MD Work Phone: [facility] Work Phone: 04-16-2020 COVID-19, Moderna, Primary or Immunocompromised, PF, 100mcg/0.5mL Phil Crenshaw MD Work Phone: [facility] 01-08-2020 pneumococcal polysaccharide vaccine, 23 valent [facility] 11-19-2019 Influenza, Quadv, adjuvanted, 65 yrs +, IM, PF (Fluad) [facility] 02-22-2019 influenza virus vacc ine, unspecified formulation [facility] , [place] 02-22-2019 influenza, injectabl e, quadrivalent, contains preservative [facility] 11-23-2017 pneumococcal conjuga te vaccine, 13 valent [facility], [place] 11-23-2017 Seasonal trivalent influenza vaccine, adjuvanted, preservative free [facility], [place] 12-17-2016 influenza virus vacc ine, unspecified formulation [facility] 12-08-2015 Influenza Vaccine, unspecified formulation [facility] , [place] 12-09-2014 influenza virus vacc ine, unspecified formulation [facility] , [place] 10-18-2013 influenza virus vacc ine, unspecified formulation [facility] 12-11-2012 influenza virus vacc ine, unspecified formulation [facility] , [place] 03-13-2012 pneumococcal polysaccharide vaccine, 23 valent [facility], [place] 03-03-2010 influenza virus vacc ine, whole virus [facility] Payers Date Payer Category Payer Medicare [id number] 2022 Unknown [employer]IC[employer] SUPPLEMENT [id number] 2022-Present [phone] [id number] [employer] [place], [place] [id number] Indemnity [id number] 2022 Unknown [id number] 2017 Medicare [id number] 2017 Medicare MEDICARE MEDICAR E PART A AND B xxxxxxxxxxx 2017-Present [phone] [place] [address] xxxxxxxxxxx [id number] 2017 Medicare MEDICARE MEDICAR E A AND B [id number] 2017-Present [phone] [place] [address] Medicare [id number] 2017 Unknown [employer] MEDIC[employer] SUPP [id number] 2017-Present [phone] ATTN INDIVIDUAL CLAIMS [id number] [employer] [place], [place] [id number] [id number] 2017 Unknown [id number] 2014 Medicare [id number] 1950 Unknown [id number] 2.16.840.1.354100.3.579.2.174 1950 Unknown [id number] 2.16.840.1.614836.3.579.2.128 6 1952 Unknown [id number] 2.16.840.1.073158.3.579.2.128 6 1952 Unknown [id number] 2.16.840.1.064653.3.579.2.173 1952 Unknown [id number] 2.16.840.1.592855.3.579.2.173 1952 Unknown [id number] 2.16.840.1.438365.3.579.2.173 1952 Unknown [id number] 2.16.840.1.520006.3.579.2.173 1952 Unknown [id number] 2.16.840.1.323243.3.579.2.173 1952 Unknown [id number] 2.16.840.1.781623.3.579.2.173 1952 Unknown [id number] 2.16.840.1.601979.3.579.2.173 1952 Unknown [id number] 2.16.840.1.606143.3.579.2.173 1952 Unknown [id number] 2.16.840.1.946916.3.579.2.173 1952 Unknown [id number] 2.16.840.1.064342.3.579.2.173 1952 Unknown [id number] 2.16.840.1.746979.3.579.2.173 1952 Unknown [id number] 2.16.840.1.278822.3.579.2.173 1952 Unknown [id number] 2.16.840.1.728749.3.579.2.173 1952 Unknown [id number] 2.16.840.1.522087.3.579.2.173 1952 Unknown [id number] 2.16.840.1.470275.3.579.2.173 1952 Unknown [id number] 2.16.840.1.857783.3.579.2.173 1952 Unknown [id number] 2.16.840.1.733994.3.579.2.173 Unknown [id number] Social History Date Type Detail Facility Start: 01-12-2019 End: 10-06-2021 Tobacco smoking status NHIS Former smoker [facility] Start: 02-21-1959 End: 02-21-1979 History of tobacco use Current smoker [place] Start: 02-21-1959 End: 02-21-1979 History of tobacco use Cigarette Sm[place] Start: 01-12-2019 End: 03-25-2022 Cigarettes smoked current (pack per day) - Reported [place] Start: 01-12-2019 End: 03-18-2023 Alcohol intake Current non-drinker of alcohol (finding) [place] Start: 03-25-2011 Alcohol Comment rare [place] Start: 1950 Sex Assigned At Not on file [place] Start: 01-08-2020 End: 10-06-2021 Tobacco use and exposure Never used [facility] [place] Start: 05-25-2021 End: 03-25-2022 History SDOH Alcohol Frequency 1 [employer] Work Phone: Start: 05-25-2021 History SDOH Physical Activity DPW 0 [employer] Phone: Start: 08-15-2020 End: 03-25-2022 History SDOH Financial 5 [employer] Work Phone: Start: 08-15-2020 End: 03-25-2022 History SDOH Transport Med 2 [employer] Work Phone: Start: 05-25-2021 End: 03-25-2022 Alcohol Use Disorder Identification Test - Consumption [AUDIT-C] [employer] How often to you hav e a drink containing alcohol? Never [facility] Average Number of Drinks Not on file [employer] (I/We) worried wheth er (my/our) food would run out before (I/we) got money to buy more. Never true [employer] At any time in the p ast 12 months, were you homeless or living in half-way [including now]? No [facility] Medical Equipment Procedure Code Equipment Code Equipment Origin al Text Equipment Identifier Dates 1 strip by Other route 2 times daily [id number] Start: 04-03-2018 1 each by In Vit ro route 2 times daily. As needed. [id number] each by Does n ot apply route 2 times daily [id number] Start: 04-03-2018 1 strip by Other route 2 times daily [id number] Start: 06-13-2020 1 strip by Other route 2 times daily [id number] Start: 07-02-2021 Use needle to in ject Levemir in to the skin every night. [id number] Start: 06-25-2021 1 strip by Other route 2 times daily [id number] Start: 08-26-2022 Use needle to in ject Levemir in to the skin every night. [id number] Start: 11-12-2022 1 each by Does n ot apply route daily [id number] Start: 01-20-2023 Goals Date Patient Goal Desired Activity /State Comment on above: I will try to decrea se the high sugar foods in my diet. Barriers: lack of motivation Plan for overcoming my barriers: Patient will participate in care coordination. Patient will review diet with dictaphone typist. Confidence: 07/31 Anticipated Goal Completion Date: 02/21/2020 Comment on above: Formatting of this n ote might be different from the original. I will take my medication as directed. I will notify my provider of any problems with medications, like adverse effects or side effects. I will notify my provider/Manager Cardiology if I am unable to afford my [...] medical history of Abnormal ECG, Diabetes mellitus ([facility]), Hyperlipidemia, Hypertension, and Sleep apnea. Surgical History [...] in the morning and at bedtime. HYDROcodone-acetaminophen ([place]) 5-325 mg tablet Take 1 tablet by [...] QT Interval 406 QTC CALCULATION(BAZETT) 444 P Quinby 42 R-Quinby -38 T Wave Quinby 59 Impression Sinus rhythm with occasional Premature ventricular complexes Left axis deviation Abnormal ECG No previous ECGs available Confirmed by Cheyenne ROY, L.S. (2) on 08/11/2023 12:12:06 PM Echo results: Transesophageal echo (SHANKAR) Result Date: 08/11/2023 1 [facility] [address] [place] [address] [phone] (fax) Transesophageal Echocardiogram-[facility] Name: KWABENA MESSER Study Date: 08/11/2023 09:54 AM (more content not included)... [facility] 08-11-2023 Note Patient: Kwabena porter Procedure Information Date/Time: 08/11/23 1030 Procedure: TRANSESOPHAGEAL ECHO (SHANKAR) Location: [facility] Heart and Vascular Center Vascular Lab Clinical [...] with attending and fellow. Additional Equipment Requests [facility] 08-11-2023 Note Patient going in for cath procedure. [facility] 08-11-2023 Note Patient: Kwabena porter Procedure Information Date/Time: 08/11/23 1030 Procedure: TRANSESOPHAGEAL ECHO (SHANKAR) Location: [facility] Heart and V[facility] Center Vascular Lab Clinical [...] with attending and fellow. Additional Equipment Requests [facility] 07-08-2023 Note HNO ID: [id number] Author: PRIYA BARON RN Service: ? Author [...] DATE: July 08, 2023 TIME: 7:16 AM [facility] 07-08-2023 Note HNO ID: [id number] Author: BRIJESH MCGEE RT(R) Service: Radiology Author [...] 08, 2023 TIME: 10:22 AM PAGER/CONTACT #: [facility] 07-08-2023 Note HNO ID: [id number] Author: BRIJESH MCGEE RT(Shannan) Service: Radiology Author [...] PATIENT PRESENTS WITH AN IMPLANTABLE OR ATTACHED ENTERPRISE INTEGRATION ARCHITECT: No RADIOLOGY DEPARTMENT: MR; Exam(s) Completed: Cardiac: Cardiac PERIPHERAL IV DATA: Site assessment: Clean,Dry and Intact, Site disposition Discontinued SIGNED BY: RT Caryn(R), Ysabel PEARCE July 08, 2023 10:08 AM [facility] 07-08-2023 Note HNO ID: [id number] Author: BRIJESH MCGEE RT(Shannan) Service: Radiology Author [...] PATIENT PRESENTS WITH AN IMPLANTABLE OR ATTACHED ENTERPRISE INTEGRATION ARCHITECT: No RADIOLOGY DEPARTMENT: MR; Exam(s) Completed: Cardiac: Cardiac PERIPHERAL IV DATA: Site assessment: Clean,Dry and Intact, Site disposition Discontinued SIGNED BY: Brijesh Mcgee RT(R), RT Ruth(R) July 08, 2023 9:28 AM [facility] 07-08-2023 History of Presen t illness Narrative [...] PATIENT PRESENTS WITH AN IMPLANTABLE OR ATTACHED ENTERPRISE INTEGRATION ARCHITECT: No RADIOLOGY DEPARTMENT: MR; Exam(s) Completed: Cardiac: [...] PATIENT PRESENTS WITH AN IMPLANTABLE OR ATTACHED ENTERPRISE INTEGRATION ARCHITECT: No RADIOLOGY DEPARTMENT: MR; Exam(s) Completed: Cardiac: [...] AM PAGER/CONTACT #: documented in this encounter [facility] 2023 Miscellaneous Notes RP Patient already scheduled for 07/07 for CARDIAC MRI. Case closed. documented in this encounter [facility] 04-15-2023 Note Cardiology Clinic No te Chief [...] hip right 2 or 3 views Narrative: [facility] Department of Radiology [address] [place] [phone] Patient Name: KWABENA MESSER : 1950 Sex: M Age: Race: White^White MRN: [id number] (more content not included)... [facility] 04-15-2023 Note New patient here to establish care. Ref from Dr. Cox for surgery clearance. He is scheduled for carpal tunnel surgery on 04/24/2023 at [facility]. Had EKG a few weeks ago. Denies personal cardiac hx, but states his father had an ICD. Denies chest pain, palpitations, and lightheadedness/syncope. Gets SOB w/ exertion. Review of Systems Cardiovascular: Positive for dyspnea on exertion. Musculoskeletal: Positive for joint pain. All other systems reviewed and are negative. [facility] Evaluation note Diagnosis Encounter for prostate cancer screening Special screening for malignant neoplasm of prostate Encounter for Medicare annual wellness exam Routine general medical examination at a health care facility Type 2 diabetes mellitus without complication, without long-term current use of insulin (HCC) documented in this encounter [employer] Phone: evalktzffy note* Diagnosis Left lower quadrant abdominal pain documented in this encounter [employer] Phone: [email or web address] note* Diagnosis Essential hypertension Unspecified essential hypertension documented in this encounter [employer] Phone: evaluation note* Diagnosis Hyperlipidemia, unspecified hyperlipidemia type Type 2 diabetes mellitus with hyperglycemia, with long-term current use of insulin (HCC) Essential hypertension Unspecified essential hypertension documented in this encounter [facility] note* Diagnosis Abnormal x-ray Other nonspecific (abnormal) findings on radiological and other examinations of body structure Lung density on x-ray Other diseases of lung, not elsewhere classified documented in this encounter [employer] Summary Purpose Family History No Family History Records FoundNo Family History Records FoundNo Family History Records FoundNo Family History Records FoundNo Family History Records FoundNo Family History Records FoundNo Family History Records Found Advance Directives No Advanced Directives Records FoundDocuments on File Type Date 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 Advance Directives and Living Will Power of Hatchery Laborer Latest Code Status on File Code Status Date Activated Date Inactivated Comments Full Code 01/12/2019 4:48 PM Full Code 01/12/2019 4:11 PM 01/12/2019 4:48 PM Full Code 09/22/2017 6:50 AM 09/22/2017 3:18 PM Full Code 09/22/2017 5:54 AM 09/22/2017 6:50 AM Full Code 09/13/2016 7:35 AM 09/15/2016 6:35 PM Documents on File Type Date 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 Advance Directives and Living Will Power of Hatchery Laborer Latest Code Status on File Code Status Date Activated Date Inactivated Comments Full Code 01/12/2019 4:48 PM 01/12/2019 8:21 PM Full Code 01/12/2019 4:11 PM 01/12/2019 4:48 PM Full Code 09/22/2017 6:50 AM 09/22/2017 3:18 PM Full Code 09/22/2017 5:54 AM 09/22/2017 6:50 AM Full Code 09/13/2016 7:35 AM 09/15/2016 6:35 PM Documents on File Type Date 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 Leave sutured alejo drain in place. Take bag of dressing supplies with you to the ED when you go. May change outer dressing at home if it becomes saturated before next dressing change. Follow up with Dr. Cooper in [place] on Tuesday. Call Tuesday to make appointment [phone]. documented in this encounter* Discharge Instr - [...] [address] [place] [address] Relation: Spouse Past Surgical History: Past Surgical [...] yrs and older) 11/23/2017 Pneumococcal Conjugate 13-valent ([id number]) 11/23/2017 Pneumococcal Polysaccharide ([id number]) 03/13/2012 Active Problems: Patient Active Problem List Diagnosis Code Essential hypertension I10 Type 2 diabetes mellitus without complication, without long-term current use of insulin ([facility]) E11.9 Hyperlipidemia E78.5 Acute pain of right hip M25.551 Primary osteoarthritis of right hip M16.11 Osteoarthritis of knee M17.10 Degenerative arthritis of hip M16.9 Depression, major, in remission ([facility]) F32.5 Numbness R20.0 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 Facial droop R29.810 Diabetes mellitus due to underlying condition with hyperglycemia, without long- term current use of insulin ([facility]) E08.65 Morbid obesity with BMI of 50.0-59.9, adult ([facility]) E66.01, Z68.43 Gluteal abscess L02.31 Isolation/Infection: Isolation [...] MENTAL STATUS:} IV Access: { JESSICA IV ACCESS:929033980} Nursing Mobility/ADLs: Walking {CHP DME ADLs:193831967} Transfer {CHP DME ADLs:915531478} Bathing {CHP DME ADLs:213711814} Dressing {CHP DME ADLs:574576083} Toileting {CHP DME ADLs:702825444} Feeding {CHP DME ADLs:043563115} Department Traffic Freight Router {P DME ADLs:025547760} Med Delivery { JESSICA MED Delivery:146460444} Wound Care Documentation and Therapy: Elimination: Continence: Bowel: {YES / NO:} Bladder: {YES / NO:} Urinary Catheter: {Urinary Catheter:481579195} Colostomy/Ileostomy/Ileal Conduit: {YES / NO:} Date of Last BM: No intake or output data in the 24 hours ending 01/13/19 1418 No intake/output data recorded. Safety Concerns: { JESSICA Safety Concerns:827068136} Impairments/Disabilities: {[facility] Impairments/Disabilities:111349062} Nutrition Therapy: Current Nutrition Therapy: {[facility] Diet List:145033031} Routes of Feeding: {[facility] Other Feedings:978443055} Liquids: {[facility] liquid thickness:23467} Daily Fluid Restriction: {[facility] DME Yes amt example:001560645} Last Modified Barium Swallow with Video (Video Swallowing Test): {Done Not Done Date:552963011} Treatments at the Time of Hospital Discharge: Respiratory Treatments: Oxygen Therapy: {Therapy; copd oxygen:00334} Ventilator: {[facility] Vent List:233411435} Rehab Therapies: {THERAPEUTIC INTERVENTION:1806246102} Weight Bearing Status/Restrictions: {[facility] Weight Bearin} Other Medical Equipment (for information only, NOT a DME order): {EQUIPMENT:698214710} Other Treatments: Patient's personal belongings (please select all that are sent with patient): {[facility] DME Belongings:497171996} RN SIGNATURE: {Esignature:146945684} CASE MANAGEMENT/SOCIAL WORK SECTION Inpatient Status Date: Readmission Risk Assessment Score: Readmission Risk Risk of Unplanned Readmission: 0 Discharging to Facility/ Agency Name: Address: Phone: Fax: Dialysis Facility (if applicable) Name: Address: Dialysis Schedule: Phone: Fax: Last Dipper/Inspector Brake Lining signature: {Esignature:525997140} PHYSICIAN SECTION Prognosis: {Prognosis:1718723762} Condition at Discharge: { Patient Condition:667936396} Rehab Potential (if transferring to Rehab): {Prognosis:0750352566} Recommended Labs or Other Treatments After Discharge: Physician Certification: I certify the above information and transfer of Kwabena Messer is necessary for the continuing treatment of the diagnosis listed and that he requires {Admit to Appropriate Level of Care:67713} for {GREATER/LESS:121263886} 30 days. Update Admission H&P: {CHP DME Changes in HandP:121292584} PHYSICIAN SIGNATURE: {Esignature:398607337} * Additional Instructions* Ava Enriquez RN - [...] Primary Emergency Contact: AydeStormy Address: [address] [place] [address] Relation: Spouse Past Surgical History: Past Surgical [...] yrs and older) 11/23/2017 Pneumococcal Conjugate 13-valent ([id number]) 11/23/2017 Pneumococcal Polysaccharide ([id number]) 03/13/2012 Active Problems: Patient Active Problem List Diagnosis Code Essential hypertension I10 Type 2 diabetes mellitus without complication, without long-term current use of insulin ([facility]) E11.9 Hyperlipidemia E78.5 Acute pain of right hip M25.551 Primary osteoarthritis of right hip M16.11 Osteoarthritis of knee M17.10 Degenerative arthritis of hip M16.9 Depression, major, in remission ([facility]) F32.5 Numbness R20.0 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 Facial droop R29.810 Diabetes mellitus due to underlying condition with hyperglycemia, without long- term current use of insulin ([facility]) E08.65 Morbid obesity with BMI of 50.0-59.9, adult ([facility]) E66.01, Z68.43 Gluteal abscess L02.31 Isolation/Infection: Isolation [...] MENTAL STATUS:} IV Access: { JESSICA IV ACCESS:575736960} Nursing Mobility/ADLs: Walking {CHP DME ADLs:404423654} Transfer {CHP DME ADLs:482669453} Bathing {CHP DME ADLs:847887200} Dressing {CHP DME ADLs:501025774} Toileting {CHP DME ADLs:769253343} Feeding {CHP DME ADLs:142891081} Department Traffic Freight Router {CHP DME ADLs:232925008} Med Delivery { JESSICA MED Delivery:051084811} Wound Care Documentation and Therapy: Elimination: Continence: Bowel: {YES / NO:} Bladder: {YES / NO:} Urinary Catheter: {Urinary Catheter:687638702} Colostomy/Ileostomy/Ileal Conduit: {YES / NO:} Date of Last BM: No intake or output data in the 24 hours ending 01/14/19 1045 No intake/output data recorded. Safety Concerns: { JESSICA Safety Concerns:709133314} Impairments/Disabilities: { JESSICA Impairments/Disabilities:264622364} Nutrition Therapy: Current Nutrition Therapy: { JESSICA Diet List:828317937} Routes of Feeding: {CHP DME Other Feedings:024886055} Liquids: {[employer] [employer] liquid thickness:56075} Daily Fluid Restriction: {CHP DME Yes amt example:302576217} Last Modified Barium Swallow with Video (Video Swallowing Test): {Done Not Done Date:} Treatments at the Time of Hospital Discharge: Respiratory Treatments: Oxygen Therapy: {Therapy; copd oxygen:55934} Ventilator: { [facility] Vent List:069724444} Rehab Therapies: {THERAPEUTIC INTERVENTION:4324587368} Weight Bearing Status/Restrictions: { [facility] Weight Bearin} Other Medical Equipment (for information only, NOT a DME order): {EQUIPMENT:953808595} Other Treatments: Patient's personal belongings (please select all that are sent with patient): {P DME Belongings:491003562} RN SIGNATURE: {Esignature:086370698} CASE MANAGEMENT/SOCIAL WORK SECTION Inpatient Status Date: Readmission Risk Assessment Score: Readmission Risk Risk of Unplanned Readmission: 0 Discharging to Facility/ Agency Name: Address: Phone: Fax: Dialysis Facility (if applicable) Name: Address: Dialysis Schedule: Phone: Fax: Last Dipper/Inspector Brake Lining signature: {Esignature:428695452} PHYSICIAN SECTION Prognosis: {Prognosis:7549285584} Condition at Discharge: { Patient Condition:550457361} Rehab Potential (if transferring to Rehab): {Prognosis:2106613015} Recommended Labs or Other Treatments After Discharge: Physician Certification: I certify the above information and transfer of Kwabenagurmeet Roquenhan is necessary for the continuing treatment of the diagnosis listed and that he requires {Admit to Appropriate Level of Care:11231} for {GREATER/LESS:283324206} 30 days. Update Admission H&P: {CHP DME Changes in HandP:207487552} PHYSICIAN SIGNATURE: {Esignature:692000633} * Additional Instructions* Ava Enriqeuz RN - 01/14/2019 Verbally reviewed discharge instructions [...] 01/15/2019 Outpatient Discharge Instructions for Wounds [address] [address] You are advised to carry out the [...] directions explained to pt, as well as food service kitchen supervisor who makes arrangements for pt to go to [place] ED for daily dressing changes at 1000. [...] CHEST W CONTRAST Marisol Carr MD [address] [address] Referral ID Status Reason Start Date Expiration Date V isits Requested Visits Authorized [id number] Not Required - RTA 03/18/2023 03/17/2024 1 1 Additional Source Comments (unrecognized sect ion and content) No Status Records FoundNo Status Records FoundNo Status Records FoundNo Status Records FoundNo Status Records FoundNo Status Records FoundNo Status Records Found INFORMATION SOURCE (unrecogn ized section and content) DATE CREATED AUTHOR 08/16/2017 [facility] DATE CREATED AUTHOR AUTHOR'S ORGANIZ ATION 11/18/2017 [facility] DATE CREATED AUTHOR AUTHOR'S ORGANIZ ATION 01/17/2019 [facility] DATE CREATED AUTHOR AUTHOR'S ORGANIZ ATION 06/09/2023 [facility] DATE CREATED AUTHOR AUTHOR'S ORGANIZ ATION 07/10/2023 [facility] DATE CREATED AUTHOR AUTHOR'S ORGANIZ ATION 07/30/2023 [facility] [place] [facility] DATE CREATED AUTHOR AUTHOR'S ORGANIZ ATION 10/03/2023 [facility] Reason for Visit (unrecogniz ed section and content) Status Reason Specialty Diagnoses / Procedures Referre d By Contact Referred To Contact Diagnoses nancy rectal abscess Procedures CA I&D RECTAL SUBMUCOSAL ABSCESS RECTAL PERIRECTAL INCISION AND DRAINAGE Jessica Cooper MD [address] [place] [address] [address] [place] [address] [facility] Specialty Diagnoses / Procedures Referred By Sultana dos santos Referred To Contact Radiology Diagnoses Abnormal x-ray Lung density on x-ray Procedures CT CHEST W CONTRAST Marisol Carr MD [address] [place], [place] [address] [place] [id number] Referral ID Status Reason Start Date Expiration Date V isits Requested Visits Authorized [id number] Not Required - RTA 03/18/2023 03/17/2024 1 1 Reason Comments Appointment Care Teams (unrecognized sec tion and content) Section Laborer Relationship Specialty Start Date End Date Phil Crenshaw MD [address] [place] [address] [address] [place] [address] PCP - General 03/22/11 Section Laborer Relationship Specialty Start Date End Date Phil Crenshaw MD [address] [place] [address] [address] [place] [address] PCP - General 03/22/11 Section Laborer Relationship Specialty Start Date End Date Phil Crenshaw MD [address] [place] [address] [address] [place] [address] PCP - General 03/22/11 Section Laborer Relationship Specialty Start Date End Date Marisol Carr MD [address] [place], [place] [address] [place] [address] PCP - General Family Medicine 06/15/22 Section Laborer Relationship Specialty Start Date End Date Marisol Carr MD [address] [place], [place] [address] [place] [address] PCP - General Family Medicine 06/15/22 Section Laborer Relationship Specialty Start Date End Date Cira Quijano MD [address] [place] [address] Referring Cardiology 05/19/23 Section Laborer Relationship Specialty Start Date End Date Cira Quijano MD [address] [place] [address] Referring Cardiology 05/19/23 Source Comments (unrecognize d section and content) In the event this informatio n is protected by the Federal Confidentiality of Alcohol and Drug Abuse Patient Records regulations: The Federal rules restrict any use of the information to criminally investigate or prosecute any alcohol or drug abuse patient.[facility] the event this information is protected by the Federal Confidentiality of Alcohol and Drug Abuse Patient Records regulations: The Federal rules restrict any use of the information to criminally investigate or prosecute any alcohol or drug abuse patient.[facility] FOR RECORDS PERTAINING TO PATIENTS WHO ARE [...] BE BASED ON THE PRIMARY CLINICAL RECORDS. [facility] [employer] provides no warranty or guarantee of the accuracy or completeness of information in this document.
[2023-11-28 13:31] VITALS: BP 156/75; PULSE 81; TEMP 36.3; O2SAT 97; BMI 58.8
[2023-11-28] MEDS: BUPIVACAINE HCL 0.5% PF 50 MG/10 ML VIAL INJ (15:00)
[2023-11-28] MEDS: LIDOCAINE HCL 1%-EPINEPHRINE 1:100,000 10 ML MDV INJ (15:00)
[2023-11-28] MEDS: LACTATED RINGER'S SOLUTION 1,000 ML 50 ML IV (15:01)
[2023-11-28] MEDS: CEFAZOLIN SODIUM 3,000 MG in 0.9 % SODIUM CHLORIDE 100 ML 200 MG IV (15:04)
[2023-11-28 15:37] VITALS: BP 143/70; PULSE 73; TEMP 36.7; O2SAT 99
--- NOTE | 2023-11-28 15:48 | PM.ORPRC ---
Procedure Note Date of procedure: 11/28/23 Pre-op diagnosis: Right carpal tunnel syndrome Post-op diagnosis: same as pre-op Procedure: Preoperative Diagnosis: Right carpal tunnel syndrome Postoperative Diagnosis: Same Procedure: Right endoscopic carpal tunnel release Indications for Surgery: The patient has had signs and symptoms of carpal tunnel syndrome that have failed conservative treatment. Options were discussed with the patient as well as risks and benefits and they have elected to proceed with the surgery. Operative procedure: Prior to surgery the patient received IV antibiotics. The operative extremity was marked preoperatively. After informed consent was obtained the patient was brought to the operating room where MAC anesthesia was administered. Preoperatively 5 mm 0.5% Marcaine plain with 5 mm 1% lidocaine with epinephrine were infiltrated in the operative sight. The arm was then prepped and draped in the usual sterile fashion after placement of a well padded tourniquet. The arm was elevated, exsanguinated, and the tourniquet was inflated. A 1 cm incision was then made in a preexisting distal wrist crease. Hemostasis was achieved with bipolar electrocautery. Blunt dissection was then carried down to the forearm fascia where a U-based flap was created. Proximally the fascia was incised for 2 cm under direct visualization. Attention was then turned to the endoscopic carpal tunnel release. The synovial elevator was used to clear the underside of the transverse carpal ligament of soft tissue. Sequential dilators were then placed. The endoscopic carpal tunnel released instrument was then placed. The transverse fibers were then identified and release from distal to proximal. The ligament was completely release. The tourniquet was deflated and hemostasis was achieved. The wound was irrigated and closed with a nylon suture. A sterile dressing was placed. The patient was brought to the recovery room. There were no preoperative or postoperative complications. Anesthesia: MAC and local Surgeon: Juan Cox Estimated blood loss (mL): 1 Pathology: none sent Condition: stable Disposition: PACU
[2023-11-28 15:52] VITALS: BP 160/76; PULSE 79; O2SAT 97
[2023-11-28 16:07] VITALS: BP 162/74; PULSE 82; O2SAT 97
== END 2023-11-28 16:20 | disposition home or self-care (01) ==
PROVIDERS: Visit Provider Orthopaedic Surgery
PROC: (CPT 29848; principal; 2023-11-28 14:25)
DX: G56.01 Carpal tunnel syndrome, right upper limb (principal); E10.9 Type 1 diabetes mellitus without complications; Z79.4 Long term (current) use of insulin; Z79.84 Long term (current) use of oral hypoglycemic drugs; Z79.85 Long-term (current) use of injectable non-insulin antidiabetic drugs; Z87.891 Personal history of nicotine dependence; G47.33 Obstructive sleep apnea (adult) (pediatric); I10 Essential (primary) hypertension; E78.5 Hyperlipidemia, unspecified; E66.01 Morbid (severe) obesity due to excess calories; Z68.43 Body mass index [BMI] 50.0-59.9, adult
CPT/HCPCS: 29848; 36415; J0665; J0690; J2250; J3010